=== PATIENT | female | born 1955 | race Caucasian/White ===

== ENCOUNTER 2017-08-02 22:19 | Emergency (ER) | payer OTHER ==
--- OUTSIDE RECORDS SUMMARY | 2017-08-02 22:21 | XMS REPORT | Clinical Summary ---
:1955 Author Organization [facility] Address [address] [place] [address] Care Team Providers Name Role Phone Leandro Plaza MD Primary Care Provider Allergies Active Allergy Reactions Severity Noted Date Comments Penicillins Anaphylaxis High 10/05/2015 Current Medications Prescription Sig. Disp. Refills Start Date End Date Status lisinopril 5 mg daily. Active (PRINIVIL,ZESTRIL) 5 daily MG tablet PARoxetine (PAXIL) 40 daily Active MG tablet chlorhexidine 1 bid Active (PERIDEX) 0.12 % solution ferrous sulfate 325 daily Active (65 FE) MG tablet exenatide microspheres Inject 2 mg 4 each 6 10/05/2015 Active (BYDUREON) 2 mg/0.65 under the skin mL pen every 7 days injectorIndications: for 90 days. Diabetes mellitus due to underlying condition with diabetic nephropathy, Acute cystitis without hematuria insulin GLARGINE Inject 16 Units 15 mL 3 11/04/2015 Active (LANTUS SOLOSTAR) 100 under the skin unit/mL (3 mL) insulin nightly. penIndications: Type 2 diabetes, uncontrolled, with retinopathy pen needle, diabetic Use 1 needle 100 each 3 11/04/2015 Active (BD ULTRA-FINE LYNNE daily PEN NEEDLES) 32 gauge x 5/32" needleIndications: Type 2 diabetes, uncontrolled, with retinopathy lancets (freestyle) 28 PRN 60 each 5 11/16/2015 Active gauge misc cyanocobalamin 1000 Take 1,000 mcg Active MCG tablet by mouth daily. folic acid (FOLVITE) 1 Take 2 tablets 60 tablet 11 10/05/2015 10/04/2016 MG tabletIndications: (2 mg total) by Diabetes mellitus due mouth daily. to underlying condition with diabetic nephropathy, Acute cystitis without hematuria triamcinolone Apply to teeth 5 g 12 10/05/2015 10/04/2016 (KENALOG) 0.1 % 2 (two) times a pasteIndications: day. Diabetes mellitus due to underlying condition with diabetic nephropathy, Acute cystitis without hematuria, Encounter for monitoring of methotrexate therapy, Herpes gingivostomatitis, Rheumatoid arthritis involving multiple sites with positive rheumatoid factor Active Problems Problem Noted Date Anemia of renal disease 05/26/2016 Anemia, macrocytic 11/28/2015 Osteoporosis on yearly reclast 11/04/2015 Overview: Osteoporosis s/p RECLAST BMD OP - 0.569 femoral neck (-2.5), right hip .583 (-2.9), L1-L4 spine 0.800 (- 2.2) Rheumatoid arthritis involving multiple sites with positive high titer 2015 anti CCP Overview: Rheumatoid arthritis with high titer CCP>250, inflammatory arthritis with synovitis Responded to steroid and partially to MTX, in remission with addition of xeljanz, Herpes gingivostomatitis in Sep 2015 10/05/2015 Last Assessment & Plan: Initial presentation in June, responded to antiviral, currently having a new flare (September 2015) given new prescription for ten days Coronary artery disease s/p stent x 1 10/05/2015 Hypothyroidism 10/05/2015 Type 2 DM with diabetic nephropathy on BYDUREON since June 2015 HbA1c 2015 decreased from 9 to 7 Hypertension 10/05/2015 Diabetes mellitus due to underlying condition with diabetic nephropathy 2015 Encounters Date Type Specialty Care Team Description 07/20/2017 [facility] Sleep Medicine Tom, Encounter Elizabeth Mcclain MD 07/19/2017 Transcribe Orders Sleep Medicine [facility], Obstructive sleep apnea Varsha syndrome (Primary Dx) 02/23/2017 Lab Lab DhLeandro rosas Pure hypercholesterolemia (Primary Dx); MD Mandy Idiopathic atrophic hypothyroidism; Rickets, active; Urinary tract infection without hematuria, site unspecified 09/28/2016 Lab Lab BryceolaLeandro nichols Pure hypercholesterolemia (Primary Dx); MD Mandy Diabetic glomerulopathy; Rickets, active; Essential hypertension; Vitamin D deficiency disease 08/26/2016 [facility] Hematology and [place]one Pat Anemia, macrocytic Encounter Oncology MD Maria Eugenia 08/25/2016 Lab Lab [place] Pat Drug-induced folate deficiency anemia ( Primary Dx); MD Maria Eugenia Anemia of chronic renal failure, unspecified stage 08/25/2016 Orders Only Hematology and Chaudhary, Oncology ALKA Corona after 08/01/2016 Family History Medical History Relation Name Comments Alzheimer's disease Father Dementia Father Dementia Mother Diabetes Mother Other Mother Epilepsy Relation Name Status Comments Father (Age 80's) Mother Social History Tobacco Use Types Packs/Day Years Used Date Never Smoker Comments: She is ; her daughters live with her. She was born in [place], [place] and raised in [place]. She worked as a student support counselor. Alcohol Use Drinks/Week oz/Week Comments No Sex Assigned at Date Recorded Not on file Last Filed Vital Signs Vital Sign Reading Time Taken Blood Pressure 155/79 08/26/2016 2:30 PM CDT Pulse 54 08/26/2016 2:21 PM CDT Temperature 36.6 C (97.9 F) 08/26/2016 2:21 PM CDT Respiratory Rate 17 08/26/2016 2:21 PM CDT Oxygen Saturation 99% 08/26/2016 2:21 PM CDT Inhaled Oxygen Concentration - - Weight 80 kg (176 lb 5.9 oz) 08/26/2016 7:52 AM CDT Height 165.1 cm (5' 5") 08/26/2016 7:52 AM CDT Body Mass Index 29.35 08/26/2016 7:52 AM CDT Plan of Treatment Health Maintenance Due Date Last Done Comments URINE MICROALBUMIN 1964 CERVICAL CANCER SCREENING 09/24/1975 BREAST CANCER SCREENING 2004 COLON CANCER SCREENING 2004 SHINGRIX VACCINE (#1) 2004 ZOSTER VACCINE 2014 DIABETIC FOOT EXAM 11/03/2016 11/04/2015, 11/04/2015 DIABETIC RETINAL EYE EXAM 01/07/2017 01/07/2015 INFLUENZA VACCINE 09/20/2017 Procedures Procedure Name Priority Date/Time Associated Diagnosis Comments GENERAL SLEEP STUDY Routine 08/01/2017 7:17 AM CDT Obstructive sleep apnea syndrome after 08/01/2016 Results General sleep study (08/01/2017 7:17 AM)Estimated GFR (02/23/2017 3:40 PM) Only the most recent of2 resultswithin the time period is included. Component Value Ref Range GFR Non Af Amer 27 (A) mL/min/1.73 m2 GFR Af Amer 32 (A) mL/min/1.73 m2 Comment: Chronic kidney disease: <60 mL/min/1.73m2 Kidney failure: <15 mL/min/1.73m2 The estimated GFR is calculated from the IDMS-traceable Modification of Diet in Renal Disease Equation. The accuracy of the calculation is poor when the creatinine is normal. Calculated values >90 mL/min/1.73m2 are not reported. This equation has not been validated in children (<18 years), women, the elderly (>70 years), or ethnic groups other than Caucasians and Americans. Specimen Performing Laboratory Plasma specimen [facility] DEPARTMENT OF PATHOLOGY AND GENOMIC MEDICINE [address] [place] [address] Vitamin D 1,25 dihydroxy level, serum (02/23/2017 3:40 PM) Component Value Ref Range Vit D, 1,25-Dihydroxy 28.50 18.00 - 78.00 pg/mL Comment: This test was developed and its performance characteristics determined by the Department of Pathology and Genomic Medicine, [facility]. Serum 1,25 Dihydroxy Vitamin D is tested by LC-MS/MS. It has not been cleared or approved by FDA. The laboratory is regulated under CLIA as qualified to perform high-complexity testing. This test is used for clinical purposes. It should not be regarded as investigational or for research. Specimen Performing Laboratory Blood [facility] DEPARTMENT OF PATHOLOGY AND GENOMIC MEDICINE [address] [place] [address] Narrative GLU results called to and read back by DR. PLAZA (name/location) at02/23/201717:34 (date/time) by [employer]. Unable to perform testing, specimen is HEMOLYZED.Recollect requested for K, AST (tests).FAXED TO [facility] ([phone]) (name/location) notified by [employer] (tech ID) at 02/23/201717:35 (date/time).Credit issued. Christina Kerr in office notified of a sample recollect for K,AST hemolyzed for testing 02/24/2017 10:47 LMID. Vitamin D 25 hydroxy level (02/23/2017 3:40 PM)Only the most recent of2 resultswithin the time period is included. Component Value Ref Range Vitamin D, 25-hydroxy 19.8 (L) 30.0 - 150.0 ng/mL Comment: This assay reports the sum of 25-hydroxy vitamin D3 and 25-hydroxy vitamin D2. Reference range: 0-17 years: Deficiency: less than 20ng/mL Optimum level: greater than or equal to 20 ng/mL. 18 years and older: Deficiency: less than 20ng/mL Insufficiency: 20-29 ng/mL Optimum Level: 30-80 ng/mL The assay reportable range is 3.4155.9 ng/mL. Levels higher than 150 ng/mL may be associated with toxicity. If toxicity is clinically suspected and the reported result is >155.9 ng/mL,contact lab for alternative methods to obtain a definitivelevel. If separate quantitation of 25-hydroxy vitamin D3 and 25-hydroxy vitamin D2 is needed, please contact lab for alternative methods. Specimen Performing Laboratory Blood [facility] DEPARTMENT OF PATHOLOGY AND GENOMIC MEDICINE [address] [place] [address] Narrative GLU results called to and read back by DR. PLAZA (name/location) at02/23/201717:34 (date/time) by [employer]. Unable to perform testing, specimen is HEMOLYZED.Recollect requested for K, AST (tests).FAXED TO [facility] ([phone]) (name/location) notified by [employer] (tech ID) at 02/23/201717:35 (date/time).Credit issued. Urinalysis, automated with microscopy (02/23/2017 3:40 PM) Component Value Ref Range Color, UA Straw Appearance, UA Clear Specific gravity, UA 1.028 1.001 - 1.035 pH, UA 6.0 5.0 - 8.5 Protein, UA 3+ (A) Negative Glucose, UA 3+ (A) Negative Ketones, UA Negative Negative Bilirubin, UA Negative Negative Blood, UA Small (A) Negative Nitrite, UA Negative Negative Urobilinogen, UA <2.0 <2.0 Leukocyte esterase, UA Negative Negative Epithelial cells, UA 2 /HPF WBC, UA 4 0 - 4 /HPF RBC, UA 2 0 - 2 /HPF Bacteria, UA Few None seen Yeast, UA None seen Yeast with pseudohyphae, UA None seen Specimen Performing Laboratory Urine [facility] DEPARTMENT OF PATHOLOGY AND GENOMIC MEDICINE [address] [place] [address] Sedimentation rate (02/23/2017 3:40 PM) Component Value Ref Range Sedimentation rate 73 (H) 0 - 20 mm/hr Specimen Performing Laboratory Blood [facility] DEPARTMENT OF PATHOLOGY AND GENOMIC MEDICINE [address] [place] [address] CBC with platelet and differential (02/23/2017 3:40 PM)Only the most recent of2 resultswithin the time period is included. Component Value Ref Range WBC 5.74 4.50 - 11.00 k/uL RBC 3.59 (L) 4.20 - 5.50 m/uL HGB 12.0 12.0 - 16.0 g/dL HCT 35.0 (L) 37.0 - 47.0 % MCV 97.5 82.0 - 100.0 fL MCH 33.4 27.0 - 34.0 pg MCHC 34.3 31.0 - 37.0 g/dL RDW - SD 46.0 37.0 - 55.0 fL MPV 10.6 8.8 - 13.2 fL Platelet count 251 150 - 400 k/uL Nucleated RBC 0.00 /100 WBC Neutrophils 62.5 39.0 - 69.0 % Lymphocytes 28.6 25.0 - 45.0 % Monocytes 7.3 0.0 - 10.0 % Eosinophils 0.9 0.0 - 5.0 % Basophils 0.5 0.0 - 1.0 % Immature granulocytes 0.2Comment: "Immature granulocytes" 0.0 - 1.0 % (promyelocytes, myelocytes, metamyelocytes) Specimen Performing Laboratory Blood [facility] DEPARTMENT OF PATHOLOGY AND GENOMIC MEDICINE [address] [place] [address] C-reactive protein (02/23/2017 3:40 PM) Component Value Ref Range CRP <0.30 0.00 - 0.50 mg/dL Specimen Performing Laboratory Plasma specimen [facility] DEPARTMENT OF PATHOLOGY AND GENOMIC MEDICINE [address] [place] [address] Hemoglobin A1c (02/23/2017 3:40 PM)Only the most recent of2 resultswithin the time period is included. Component Value Ref Range Hemoglobin A1C 10.7 (H) 4.0 - 5.6 % Comment: HbA1c cutoffs for diagnosing diabetes: 4.0% - 5.6%=normal 5.7% - 6.4%=increased risk for diabetes (prediabetes) >=6.5%=diabetes Goals for glycemic control (ADA 2016) < 7.0%Target for non adults with diabetes. More or less stringent targets may be appropriate for individual patients. <7.5% Target for Children and adolescents with type 1 diabetes. Specimen Performing Laboratory Blood [facility] DEPARTMENT OF PATHOLOGY AND GENOMIC MEDICINE [address] [place] [address] Narrative GLU results called to and read back by DR. PLAZA (name/location) at02/23/201717:34 (date/time) by [employer]. Unable to perform testing, specimen is HEMOLYZED.Recollect requested for K, AST (tests).FAXED TO [facility] ([phone]) (name/location) notified by [employer] (tech ID) at 02/23/201717:35 (date/time).Credit issued. Comprehensive metabolic panel (02/23/2017 3:40 PM)Only the most recent of2 resultswithin the time period is included. Component Value Ref Range Sodium 131 (L) 135 - 148 mEq/L Potassium SEE COMMENT 3.5 - 5.0 mEq/L Comment: Footnote--------- K, AST ARE HEMOLYZED. PLEASE RECOLLECT. Chloride 90 (L) 98 - 112 mEq/L CO2 24 24 - 31 mEq/L Anion gap 17 (H) 7 - 15 mEq/L Comment: Starting from May , anion gap calculation no longer incorporates potassium. Please note the change. BUN 41 (H) 8 - 23 mg/dL Creatinine 1.9 (H) 0.5 - 0.9 mg/dL Glucose 696 (HH) 65 - 99 mg/dL Calcium 10.6 (H) 8.8 - 10.2 mg/dL Protein 7.8 6.3 - 8.3 g/dL Comment: [place] 4.6-7.0 g/dL 1 week 4.4-7.6 g/dL 7 months-1year5.1-7.3 g/dL 1-2 years5.6-7.5 g/dL >3 years6.0-8.0 g/dL 18-150 6.3-8.3 g/dL Albumin 2.7 (L) 3.5 - 5.0 g/dL A/G ratio 0.5 (L) 0.7 - 3.8 Alkaline phosphatase 76 35 - 104 U/L AST SEE COMMENTComment: Footnote--------- 10 - 35 U/L ALT 15 5 - 50 U/L Total bilirubin <0.2 0.0 - 1.2 mg/dL Specimen Performing Laboratory Plasma specimen [facility] DEPARTMENT OF PATHOLOGY AND GENOMIC MEDICINE [address] [place] [address] Miscellaneous referral test (09/28/2016 1:58 PM) Component Value Ref Range [facility] test name VD send to [facility] test result see note Comment: 1,25-Dihydroxyvitamin D, Serum Result 39 pg/mL(Reference Value18?78) Laboratory Notes This test was developed and its performance characteristics determined by [facility] in a manner consistent with CLIA requirements. This test has not been cleared or approved by the U.S. Food and Drug Administration. Performing Site [facility] - [facility] [address] [facility] [address] Specimen Performing Laboratory [facility] [address] [place] [address] Narrative [facility] send to [place]. Bilirubin direct (09/28/2016 1:58 PM) Component Value Ref Range Bilirubin direct <0.2 0.0 - 0.3 mg/dL Specimen Performing Laboratory Plasma specimen [facility] DEPARTMENT OF PATHOLOGY AND GENOMIC MEDICINE [address] [place] [address] Lipid panel (09/28/2016 1:58 PM) Component Value Ref Range Cholesterol 276 (H) <200 mg/dL Triglycerides 439 (H) <150 mg/dL HDL cholesterol 56 >40 mg/dL LDL cholesterol 152 (H)Comment: Result obtained by direct LDL <100 mg/dL measurement Lipid panel interpretation SeeBelow Comment: Total Cholesterol (mg/dL) <200 Desirable [id number] >=240High Triglycerides (mg/dL) <150 Normal [id number]-nuoe 200-499High >=500Very high HDL Cholesterol (mg/dL) <40Low (male) <40Low (female) LDL Cholesterol (mg/dL) <100 Optimal 100-129Near or above optimal 339-324Idkvgcehto-qlvc 160-189High >=190Very high Risk Catergories that modify LDL goals. Risk CatergoriesLDL goal (mg/dL) CHD and CHD risk equivalent<100 (10-year risk >20%) Multiple (2+) risk factors <130 (10-year risk=<20%) 0-1 risk factors <160 (<10-year risk) Defining levels of lipids in metabolic syndrome Triglycerides>=150 mg/dL HDL Cholesterol Men<40 mg/dL Women<40 mg/dL Non-HDL cholesterol is a second target for therapy in persons with high triglycerides (>=200 mg/dL) Specimen Performing Laboratory Plasma specimen [facility] DEPARTMENT OF PATHOLOGY AND GENOMIC MEDICINE [address] [place] [address] Transfuse RBC (08/26/2016 2:22 PM)Only the most recent of3 resultswithin the time period is included.Prepare RBC, 2 Units (08/26/2016 8:03 AM) Component Value Ref Range Product name Red Blood Cells -1, Leukored Unit number [id number] Product code [id number] Dispense status Transfused Blood expiration date 20160921 Blood type code 6200 Blood type A POSITIVE Product name Red Blood Cells -1, Leukored Unit number [id number] Product code [id number] Dispense status Transfused Blood expiration date 20160921 Blood type code 6200 Blood type A POSITIVE Specimen Performing Laboratory [facility] DEPARTMENT OF PATHOLOGY AND GENOMIC MEDICINE [address] [place] [address] Type and screen (08/26/2016 8:03 AM) Component Value Ref Range ABO grouping A Rh type POS Antibody screen (gel) NEG Specimen Performing Laboratory Blood [facility] DEPARTMENT OF PATHOLOGY AND GENOMIC MEDICINE [address] [place] [address] after 08/01/2016 Insurance Payer Benefit Plan / Group Subscriber ID Type Phone Address MEDICARE MEDICARE PART A AND B xxxxxxxxxx Medicare [place], [place] MEDICAID MEDICAID xxxxxxxxx Medicaid
[2017-08-02] MEDS ORDERED: HYDROCODONE/APAP 7.5/325 MG TAB ONE (23:22)
[2017-08-03 00:37] LABS: Urine Blood TRACE (NEG); Urine Glucose TRACE (NEG)
[2017-08-03 00:38] LABS: Urine Protein 3+ (NEG)
--- NOTE | 2017-08-03 01:17 | ER ---
Nurse's Notes [facility] Name: Viri Jefferson Age: 61 yrs Sex: Female : 1955 Arrival Date: 08/02/2017 Time: 22:27 Bed 2 Private MD: Diagnosis: Fall due to bumping against object;Contusion of right front wall of thorax;Contusion of right back wall of thorax;Contusion of thorax;Type 1 diabetes mellitus;Multiple fractures of ribs-old Presentation: 08/02 22:20 Method Of Arrival: EMS: [facility] 22:20 Acuity: RUSS 3 22:20 Presenting complaint: EMS states: that pt was sitting on an air mattress approx 2 foot fc high and she rolled off. Pt then heard a crunch as she hit her right side on the ground. Now having increased pain. Transition of care: patient was not received from another setting of care. Onset of symptoms was August 02, 2017 at 22:00. Risk Assessment: Do you want to hurt yourself or someone else? Patient reports no desire to harm self or others. Initial Sepsis Screen: Does the patient meet any 2 criteria? No. Patient's initial sepsis screen is negative. Does the patient have a suspected source of infection? No. Patient's initial sepsis screen is negative. Care prior to arrival: Glucose check: 174 EMS bp 183/91, heart rate of 70, resp rate of 20 and sats of 100% on roomair. Historical: - Allergies: 22:35 PENICILLINS; fc - Home Meds: 22:35 paroxetine HCl 40 mg Oral tab 1 tab once daily [Active]; Xeljanz 5 mg oral tab 1 tab 2 fc times per day [Active]; vit D3 [Active]; Vitamin b 12 [Active]; folic acid 400 mcg Oral tab 1 tab once daily [Active]; - PMHx: 22:35 Anxiety; Seizures; Diabetes - IDDM; fc - PSHx: 22:35 left leg; left shoulder; left foot; fc - Immunization history:: Last tetanus immunization: unknown. - Social history:: Smoking status: Patient/guardian denies using tobacco. - Ebola Screening: : Patient negative for fever greater than or equal to 101.5 degrees Fahrenheit, and additional compatible Ebola Virus Disease symptoms Patient denies exposure to infectious person Patient denies travel to an Ebola-affected area in the 21 days before illness onset. - Family history:: not pertinent. Screenin:32 Abuse screen: Denies threats or abuse. Nutritional screening: No deficits noted. fc Tuberculosis screening: No symptoms or risk factors identified. Fall Risk Fall in past 12 months (25 points). Secondary diagnosis (15 points) impaired mobility, No IV (0 pts). Ambulatory Aid- Crutches/Cane/Walker (15 pts). Gait- Impaired (20 pts.). Mental Status- Overestimates/Forgets Limitations (15 pts.). Total Hi Fall Scale indicates High Risk Score (45 or more points). Fall prevention measures have been instituted. Side Rails Up X 2 Placed Close to Nursing Station 1:1 Attendant Assigned Family Present and informed to notify staff if the need to leave the bedside As available patient and family educated on Fall Prevention Program and Strategies. Assessment: 22:30 General: Appears in no apparent distress. comfortable, Behavior is calm, cooperative, aa1 appropriate for age. Pain: Complains of pain in right scapular area, right subscapular area, anterior aspect of right upper chest, diaphragm, right lateral posterior chest and right lateral anterior chest Pain currently is 9 out of 10 on a pain scale. Pain began suddenly, Is continuous. Neuro: Level of Consciousness is awake, alert, obeys commands, Oriented to person, place, time, situation, Moves all extremities. Cardiovascular: Heart tones S1 S2 present Rhythm is regular. Respiratory: Airway is patent Respiratory effort is even, unlabored, Respiratory pattern is regular, symmetrical, Breath sounds are clear bilaterally. GI: No signs and/or symptoms were reported involving the gastrointestinal system. : No signs and/or symptoms were reported regarding the genitourinary system. EENT: No signs and/or symptoms were reported regarding the EENT system. Derm: Skin is intact, is healthy with good turgor, Skin is pink, warm \T\ dry. Musculoskeletal: Circulation, motion, and sensation intact. Capillary refill < 3 seconds, Range of motion: intact in all extremities. 23:40 Reassessment: Patient appears in no apparent distress at this time. Patient and/or aa1 family updated on plan of care and expected duration. Pain level reassessed. Patient is alert, oriented x 3, equal unlabored respirations, skin warm/dry/pink. Pt taken to CT. 08/03 00:52 Reassessment: Patient appears in no apparent distress at this time. Patient and/or aa1 family updated on plan of care and expected duration. Pain level reassessed. Patient is alert, oriented x 3, equal unlabored respirations, skin warm/dry/pink. Awaiting CT results. 01:28 Reassessment: Patient appears in no apparent distress at this time. Patient is alert, aa1 oriented x 3, equal unlabored respirations, skin warm/dry/pink. Discussed d/c \T\ f/u instructions with pt \T\ daughter; denies questions or concerns at this time Patient states feeling better. Vital Signs: 08/02 22:20 BP 173 / 78; Pulse 71; Resp 20; Temp 98.3(O); Pulse Ox 98% on R/A; Weight 81.65 kg (R); fc Height 5 ft. 5 in. (165.10 cm) (R); Pain 9/10; 23:35 BP 170 / 91; Pulse 59; Resp 18; Pulse Ox 95% on R/A; aa1 08/03 00:52 BP 144 / 75; Pulse 61; Resp 18; Pulse Ox 95% on R/A; Pain 6/10; aa1 08/02 22:20 Body Mass Index 29.95 (81.65 kg, 165.10 cm) fc ED Course: 08/02 22:20 Patient placed in an exam room. fc 22:27 Patient arrived in ED. aa1 22:27 Patient has correct armband on for positive identification. Placed in gown. Bed in low aa1 position. Call light in reach. Side rails up X2. Pulse ox on. NIBP on. Pillow given. 22:30 Rojas Mendoza MD is Attending Physician. [facility] 22:31 Triage completed. fc 22:54 Nola Lorenz, WILLY is Primary Nurse. aa1 23:18 X-ray completed. Portable x-ray completed in exam room. Patient tolerated procedure kw well. 23:19 Chest Single View XRAY In Process Unspecified. EDMS 23:[address] via wheelchair. kw1 23:56 CT Chest Abdomen Pelvis W/O Contrast: no iv no oral In Process Unspecified. EDMS 08/03 00:26 Urine collected: clean catch specimen, clear. aa1 01:28 No provider procedures requiring assistance completed. Patient did not have IV access aa1 during this emergency room visit. Administered Medications: 08/02 23:23 Drug: [place] (7.5 mg-325 mg) 1 tabs Route: PO; aa1 08/03 00:55 Follow up: Response: No adverse reaction; Pain is decreased aa1 Point of Care Testing: Blood Glucose: 08/02 23:30 Blood Glucose: 173 mg/dL; aa1 Ranges: Outcome: 08/03 01:16 Discharge ordered by . hemanth 01:28 Discharged to home via wheelchair, with family. aa1 01:28 Condition: good 01:28 Discharge instructions given to patient, family, Instructed on discharge instructions, follow up and referral plans. medication usage, Demonstrated understanding of instructions, follow-up care, medications, Prescriptions given X 1. 01:35 Patient left the ED. aa1 Signatures: Dispatcher [employer] EDMS Nola Lorenz RN RN aa1 Rojas Mendoza MD MD cha Chretien, Felicia RN RN Janel Perez Kimberly kw Corrections: (The following items were deleted from the chart) 08/02 22:33 22:32 Fall Risk None identified. prema
--- NOTE | 2017-08-03 01:17 | EDPHYS ---
Physician Documentation [facility] Name: Viri Jefferson Age: 61 yrs Sex: Female : 1955 Arrival Date: 08/02/2017 Time: 22:27 Bed 2 Private MD: ED Physician Rojas Mendoza HPI: 08/02 23:08 This 61 yrs old Female presents to ER via EMS with complaints of Right side hemanth pain. 23:08 The patient presents with abdominal pain in the upper abdomen. Onset: The hemanth symptoms/episode began/occurred just prior to arrival. The patient or guardian reports chest pain that is located primarily in the anterior chest wall, right lateral posterior chest and right lateral anterior chest. Onset: The symptoms/episode began/occurred just prior to arrival. The pain does not radiate. Associated signs and symptoms: The patient has no apparent associated signs or symptoms. The chest pain is described as sharp. Modifying factors: The symptoms are alleviated by remaining still, the symptoms are aggravated by movement, palpation of area, twisting torso. Severity of pain: At its worst the pain was mild moderate in the emergency department the pain is unchanged. Historical: - Allergies: 22:35 PENICILLINS; fc - Home Meds: 22:35 paroxetine HCl 40 mg Oral tab 1 tab once daily [Active]; Xeljanz 5 mg oral tab 1 tab 2 fc times per day [Active]; vit D3 [Active]; Vitamin b 12 [Active]; folic acid 400 mcg Oral tab 1 tab once daily [Active]; - PMHx: 22:35 Anxiety; Seizures; Diabetes - IDDM; fc - PSHx: 22:35 left leg; left shoulder; left foot; fc - Immunization history:: Last tetanus immunization: unknown. - Social history:: Smoking status: Patient/guardian denies using tobacco. - Ebola Screening: : Patient negative for fever greater than or equal to 101.5 degrees Fahrenheit, and additional compatible Ebola Virus Disease symptoms Patient denies exposure to infectious person Patient denies travel to an Ebola-affected area in the 21 days before illness onset. - Family history:: not pertinent. ROS: 23:08 Constitutional: Negative for fever, chills, and weight loss, Eyes: Negative for injury, hemanth pain, redness, and discharge, ENT: Negative for injury, pain, and discharge, Neck: Negative for injury, pain, and swelling, Cardiovascular: Negative for chest pain, palpitations, and edema, Abdomen/GI: Negative for abdominal pain, nausea, vomiting, diarrhea, and constipation. 23:08 Back: Negative for injury and pain, : Negative for injury, bleeding, discharge, and swelling, MS/Extremity: Negative for injury and deformity, Skin: Negative for injury, rash, and discoloration, Neuro: Negative for headache, weakness, numbness, tingling, and seizure, Psych: Negative for depression, anxiety, suicide ideation, homicidal ideation, and hallucinations, Allergy/Immunology: Negative for hives, rash, and allergies, Endocrine: Negative for neck swelling, polydipsia, polyuria, polyphagia, and marked weight changes, Hematologic/Lymphatic: Negative for swollen nodes, abnormal bleeding, and unusual bruising. 23:08 Respiratory: Positive for pleurisy, shortness of breath. Exam: 23:10 Constitutional: This is a well developed, well nourished patient who is awake, alert, hemanth and in no acute distress. Head/Face: Normocephalic, atraumatic. Eyes: Pupils equal round and reactive to light, extra-ocular motions intact. Lids and lashes normal. Conjunctiva and sclera are non-icteric and not injected. Cornea within normal limits. Periorbital areas with no swelling, redness, or edema. ENT: Nares patent. No nasal discharge, no septal abnormalities noted. Tympanic membranes are normal and external auditory canals are clear. Oropharynx with no redness, swelling, or masses, exudates, or evidence of obstruction, uvula midline. Mucous membranes moist. Neck: Trachea midline, no thyromegaly or masses palpated, and no cervical lymphadenopathy. Supple, full range of motion without nuchal rigidity, or vertebral point tenderness. No Meningismus. Cardiovascular: Regular rate and rhythm with a normal S1 and S2. No gallops, murmurs, or rubs. Normal PMI, no JVD. No pulse deficits. Respiratory: Lungs have equal breath sounds bilaterally, clear to auscultation and percussion. No rales, rhonchi or wheezes noted. No increased work of breathing, no retractions or nasal flaring. Abdomen/GI: Soft, non-tender, with normal bowel sounds. No distension or tympany. No guarding or rebound. No evidence of tenderness throughout. Back: No spinal tenderness. No costovertebral tenderness. Full range of motion. Female : Normal external genitalia. Skin: Warm, dry with normal turgor. Normal color with no rashes, no lesions, and no evidence of cellulitis. MS/ Extremity: Pulses equal, no cyanosis. Neurovascular intact. Full, normal range of motion. Neuro: Awake and alert, GCS 15, oriented to person, place, time, and situation. Cranial nerves II-XII grossly intact. Motor strength 5/5 in all extremities. Sensory grossly intact. Cerebellar exam normal. Normal gait. Psych: Awake, alert, with orientation to person, place and time. Behavior, mood, and affect are within normal limits. 23:10 Chest/axilla: Inspection: no acute changes, Palpation: tenderness, that is mild, of the right lateral posterior chest and right lateral anterior chest, Axilla: are normal, no acute changes, Breasts: are normal, no acute changes, Lymph nodes: lymphadenopathy is not appreciated. Vital Signs: 22:20 BP 173 / 78; Pulse 71; Resp 20; Temp 98.3(O); Pulse Ox 98% on R/A; Weight 81.65 kg (R); fc Height 5 ft. 5 in. (165.10 cm) (R); Pain 9/10; 23:35 BP 170 / 91; Pulse 59; Resp 18; Pulse Ox 95% on R/A; aa 08/03 00:52 BP 144 / 75; Pulse 61; Resp 18; Pulse Ox 95% on R/A; Pain 6/10; 1 08/02 22:20 Body Mass Index 29.95 (81.65 kg, 165.10 cm) fc MDM: 08/02 22:30 Patient medically screened. [facility] 23:10 Data reviewed: vital signs, nurses notes, lab test result(s), radiologic studies. [facility] 08/02 23:07 Order name: Urine Culture [facility] 08/03 00:27 Order name: Urine Dipstick--Ancillary (enter results); Complete Time: 01:16 [facility] 08/02 23:07 Order name: Chest Single View XRAY [facility] 08/02 23:07 Order name: CT Chest Abdomen Pelvis W/O Contrast: no iv no oral [facility] 08/02 23:07 Order name: INCENTIVE SPIROMETRY [facility] 08/02 23:07 Order name: Urine Dipstick-Ancillary (obtain specimen); Complete Time: 00:26 [facility] 08/02 23:11 Order name: Blood Glucose Level; Complete Time: 23:26 [facility] Administered Medications: 23:23 Drug: Beryl (7.5 mg-325 mg) 1 tabs Route: PO; aa1 08/03 00:55 Follow up: Response: No adverse reaction; Pain is decreased aa1 Point of Care Testing: Blood Glucose: 08/02 23:30 Blood Glucose: 173 mg/dL; aa Ranges: Critical Glucose Levels:Adult <50 mg/dl or >400 mg/dl <40 mg/dl or >180 mg/dl Disposition: 08/03/17 01:16 Discharged to Home. Impression: Fall due to bumping against object, Contusion of right front wall of thorax, Contusion of right back wall of thorax, Contusion of thorax, Type 1 diabetes mellitus, Multiple fractures of ribs - old. - Condition is Stable. - Discharge Instructions: Chest Wall Pain, Type 2 Diabetes Mellitus, Adult, Type 1 Diabetes Mellitus, Adult, Fall Prevention and Home Safety, Chest Wall Pain, [id number], Fall Prevention and Home Safety, [id number]. - Prescriptions for Tylenol- Codeine #3 300-30 mg Oral Tablet - take 2 tablet by ORAL route every 6 hours As needed; 30 tablet. - Medication Reconciliation Form, Thank You Letter, Antibiotic Education, Prescription Opioid Use form. - Follow up: Private Physician; When: 2 - 3 days; Reason: Recheck today's complaints, Continuance of care, Re-evaluation by your physician. - Problem is new. - Symptoms have improved. Signatures: Dispatcher [employer] EDMS Nola Lorenz, RN RN aa1 Rojas Mendoza MD MD cha Chretien, Felicia, RN RN Corrections: (The following items were deleted from the chart) 08/03 01:35 01:16 08/03/2017 01:16 Discharged to Home. Impression: Fall due to bumping against aa1 object; Contusion of right front wall of thorax; Contusion of right back wall of thorax; Contusion of thorax; Type 1 diabetes mellitus; Multiple fractures of ribs - old. Condition is Stable. Discharge Instructions: Type 2 Diabetes Mellitus, Adult, Type 1 Diabetes Mellitus, Adult, Chest Wall Pain, Fall Prevention and Home Safety, Chest Wall Pain, [id number], Fall Prevention and Home Safety, [id number]. Prescriptions for Tylenol-Codeine #3 300-30 mg Oral Tablet - take 2 tablet by ORAL route every 6 hours As needed; 30 tablet. and Forms are Medication Reconciliation Form, Thank You Letter, Antibiotic Education, Prescription Opioid Use. Follow up: Private Physician; When: 2 - 3 days; Reason: Recheck today's complaints, Continuance of care, Re-evaluation by your physician. Problem is new. Symptoms have improved. hemanth
[2017-08-03 01:42] VITALS: TEMP 98.3
[2017-08-03 01:43] VITALS: O2SAT 95
[2017-08-03 01:44] VITALS: BP 144/75
--- NOTE | 2017-08-03 08:44 | RAD REPORT ---
EXAM DESCRIPTION: RAD - Chest Single View - 08/02/2017 11:21 pm CLINICAL HISTORY: Chest pain. COMPARISON: 10/02/2016 FINDINGS: Portable technique limits examination quality. Mild linear atelectasis is seen left mid lung. The lungs are otherwise clear. The heart is upper limi t of normal in size. No displaced fractures. IMPRESSION: No acute intrathoracic process suspected.
--- NOTE | 2017-08-03 09:34 | RAD REPORT ---
EXAM DESCRIPTION: CT - Chest Abd Pelvis Wo Con - 08/03/2017 7:14 am CLINICAL HISTORY: Chest and abdomen pain. Chest pain;Blunt chest trauma COMPARISON: CTANGIO CHEST FOR PE dated 06/18/2007 TECHNIQUE: All CT scans are performed using dose optimization technique as appropriate and may inclu de automated exposure control or mA/KV adjustment according to patient size. FINDINGS: Minimal linear atelectasis is seen in left mid lung. No focal pulmonary infiltrate or cont usion.No pleural or pericardial effusion.No intrathoracic adenopathy. The liver contains a small low-density lesion in the inferior right lobe, likely benign cyst. No aggr essive liver lesion or biliary dilatation suspected. The spleen, adrenal glands and kidneys show no a cute finding for non-contrast imaging. Punctate inferior right renal calculus suspected. No gross laird creatic abnormality for non-contrast imaging. Cholelithiasis. No bowel obstruction, free air, free fluid or abscess. No pathologic lymphadenopathy in the abdomen o r pelvis. Areas of lucency are seen in the lateral aspect of the right first, second, third ribs is questionabl e/ equivocal for nondisplaced fractures. Correlation with clinical point tenderness is advised. There is evidence of previous old right-sided rib fractures with sclerosis noted. Chronic spondylolysis at L5-S1 suspected. IMPRESSION: Lucency in several lateral superior right ribs is equivocal for fracture. Correlation with patient pa in in this location is advised. Elsewhere, no acute finding is demonstrated.
== END 2017-08-03 01:35 | disposition home or self-care (01) ==
LOC: ER 22:19
DX: S20.211A Contusion of right front wall of thorax, initial encounter (principal); S20.221A Contusion of right back wall of thorax, initial encounter; S22.49XA Multiple fractures of ribs, unspecified side, initial encounter for closed fracture; E10.9 Type 1 diabetes mellitus without complications; W18.00XA Striking against unspecified object with subsequent fall, initial encounter; Y93.9 Activity, unspecified; Y92.9 Unspecified place or not applicable; Z88.0 Allergy status to penicillin; F41.9 Anxiety disorder, unspecified; G40.909 Epilepsy, unspecified, not intractable, without status epilepticus
CPT/HCPCS: 71045; 71250; 74176; 81003; 82962; 87086; 87088; 99284

== ENCOUNTER 2017-10-27 11:50 | Emergency (ER) | payer OTHER ==
--- OUTSIDE RECORDS SUMMARY | 2017-10-27 11:52 | XMS REPORT | Clinical Summary ---
:1955 Author Organization [facility] Address [address] [place] [address] Care Team Providers Name Role Phone Leandro Plaza MD Primary Care Provider Allergies Active Allergy Reactions Severity Noted Date Comments Penicillins Anaphylaxis High 10/05/2015 Current Medications Prescription Sig. Disp. Refills Start Date End Date Status lisinopril 5 mg daily. Active (PRINIVIL,ZESTRIL) 5 MG daily tablet PARoxetine (PAXIL) 40 MG daily Active tablet chlorhexidine (PERIDEX) 1 bid Active 0.12 % solution ferrous sulfate 325 (65 daily Active FE) MG tablet exenatide microspheres Inject 2 mg 4 each 6 10/05/2015 Active (BYDUREON) 2 mg/0.65 mL under the skin pen injectorIndications: every 7 days for Diabetes mellitus due to 90 days. underlying condition with diabetic nephropathy, Acute cystitis without hematuria insulin GLARGINE (LANTUS Inject 16 Units 15 mL 3 11/04/2015 Active SOLOSTAR) 100 unit/mL (3 under the skin mL) insulin nightly. penIndications: Type 2 diabetes, uncontrolled, with retinopathy pen needle, diabetic (BD Use 1 needle 100 each 3 11/04/2015 Active ULTRA-FINE LYNNE PEN daily NEEDLES) 32 gauge x 5/32" needleIndications: Type 2 diabetes, uncontrolled, with retinopathy lancets (freestyle) 28 PRN 60 each 5 11/16/2015 Active gauge misc cyanocobalamin 1000 MCG Take 1,000 mcg Active tablet by mouth daily. Active Problems Problem Noted Date Anemia of [...] Encounters Date Type Specialty Care Team Description 08/30/2017 [facility] Sleep Medicine Tom, Encounter Elizabeth Mcclain MD 08/17/2017 Transcribe Orders Sleep Medicine [facility] Wu, Obstructive sleep apnea Varsha syndrome (Primary Dx) 07/20/2017 [facility] Sleep Medicine Tom, Encounter Elizabeth Mcclain MD 07/19/2017 Transcribe Orders Sleep Medicine Kallie Washburn, Obstructive sleep apnea Varsha syndrome (Primary Dx) 02/23/2017 Lab Lab Leandro Plaza Pure hypercholesterolemia (Primary Dx); MD Mandy Idiopathic atrophic hypothyroidism; Rickets, active; Urinary tract infection without hematuria, site unspecified after 10/26/2016 Family History Medical History Relation Name Comments Alzheimer's disease Father Dementia Father Dementia Mother Diabetes Mother Other Mother Epilepsy Relation Name Status Comments Father (Age 80's) Mother Social History Tobacco Use Types Packs/Day Years Used Date Never Smoker Comments: She is ; her daughters live with her. She was born in [place], [place] and raised in [place]. She worked as a couples therapist. Alcohol Use Drinks/Week oz/Week Comments No Sex Assigned at Date Recorded Not on file Last Filed Vital Signs Not on file Plan of Treatment Health Maintenance Due Date Last Done Comments URINE MICROALBUMIN 1964 CERVICAL CANCER SCREENING 09/24/1975 BREAST CANCER SCREENING 2004 COLON CANCER SCREENING 2004 SHINGRIX VACCINE (#1) 2004 ZOSTER VACCINE 2014 DIABETIC FOOT EXAM 11/03/2016 11/04/2015, 11/04/2015 DIABETIC RETINAL EYE EXAM 01/07/2017 01/07/2015 INFLUENZA VACCINE 09/20/2017 Procedures Procedure Name Priority Date/Time Associated Comments Diagnosis TRANSFUSE RED BLOOD Routine 10/25/2017 5:26 CELLS PM CDT TRANSFUSE RED BLOOD Routine 10/25/2017 5:26 CELLS PM CDT TRANSFUSE PLATELETS Routine 10/25/2017 5:26 PM CDT TRANSFUSE PLATELETS Routine 10/25/2017 5:26 PM CDT TRANSFUSE RED BLOOD Routine 10/25/2017 5:25 CELLS PM CDT GENERAL SLEEP STUDY Routine 09/05/2017 6:21 Obstructive sleep AM CDT apnea syndrome GENERAL SLEEP STUDY Routine 08/01/2017 7:17 Obstructive sleep AM CDT apnea syndrome ESTIMATED GFR Routine 02/23/2017 3:40 Results for this PM LOOM INSPECTOR procedure are in the results section. VITAMIN D 1,25 Routine 02/23/2017 3:40 Pure Results for this DIHYDROXY LEVEL, SERUM PM LOOM INSPECTOR hypercholesterolemi procedure are in a the results Idiopathic atrophic section. hypothyroidism Rickets, active Urinary tract infection without hematuria, site unspecified URINALYSIS, AUTOMATED Routine 02/23/2017 3:40 Pure Results for this WITH MICROSCOPY PM LOOM INSPECTOR hypercholesterolemi procedure are in a the results Idiopathic atrophic section. hypothyroidism Rickets, active Urinary tract infection without hematuria, site unspecified VITAMIN D 25 HYDROXY Routine 02/23/2017 3:40 Pure Results for this LEVEL PM LOOM INSPECTOR hypercholesterolemi procedure are in a the results Idiopathic atrophic section. hypothyroidism Rickets, active Urinary tract infection without hematuria, site unspecified HEMOGLOBIN A1C Routine 02/23/2017 3:40 Pure Results for this PM LOOM INSPECTOR hypercholesterolemi procedure are in a the results Idiopathic atrophic section. hypothyroidism Rickets, active Urinary tract infection without hematuria, site unspecified C-REACTIVE PROTEIN Routine 02/23/2017 3:40 Pure Results for this PM LOOM INSPECTOR hypercholesterolemi procedure are in a the results Idiopathic atrophic section. hypothyroidism Rickets, active Urinary tract infection without hematuria, site unspecified SEDIMENTATION RATE Routine 02/23/2017 3:40 Pure Results for this PM LOOM INSPECTOR hypercholesterolemi procedure are in a the results Idiopathic atrophic section. hypothyroidism Rickets, active Urinary tract infection without hematuria, site unspecified COMPREHENSIVE Routine 02/23/2017 3:40 Pure Results for this METABOLIC PANEL PM LOOM INSPECTOR hypercholesterolemi procedure are in a the results Idiopathic atrophic section. hypothyroidism Rickets, active Urinary tract infection without hematuria, site unspecified HC COMPLETE BLD COUNT Routine 02/23/2017 3:40 Pure Results for this W/AUTO DIFF PM LOOM INSPECTOR hypercholesterolemi procedure are in a the results Idiopathic atrophic section. hypothyroidism Rickets, active Urinary tract infection without hematuria, site unspecified after 10/26/2016 Results Transfuse platelets (10/25/2017 5:26 PM)Only the most recent of3 resultswithin the time period is included.Transfuse RBC (10/25/2017 5:26 PM)Only the most recent of3 resultswithin the time period is included.General sleep study (2017 6:21 AM) Narrative Performed At General sleep study (08/01/2017 7:17 AM) Narrative Performed At Estimated GFR (02/23/2017 3:40 PM) GFR Non Af Amer 27 (A) mL/min/1.[address] [facility] DEPARTMENT OF PATHOLOGY AND GENOMIC MEDICINE GFR Af Amer 32 (A) mL/min/1.[address] [facility] DEPARTMENT OF Comment: PATHOLOGY AND GENOMIC Chronic kidney disease: <60 mL/min/1.73m2 MEDICINE Kidney failure: <15 mL/min/1.73m2 The estimated GFR is calculated from the IDMS-traceable Modification of Diet in Renal Disease Equation. The accuracy of the calculation is poor when the creatinine is normal. Calculated values >90 mL/min/1.73m2 are not reported. This equation has not been validated in children (<18 years), women, the elderly (>70 years), or ethnic groups other than Caucasians and Americans. Specimen Plasma specimen Performing Organization Address City/State/Zipcode Phone Number [facility] DEPARTMENT OF PATHOLOGY AND [address] [place] [address] [employer] MEDICINE Vitamin D 1,25 dihydroxy level, serum (02/23/2017 3:40 PM) Vit D, 1,25-Dihydroxy 28.50 18.00 - 78.[address] [facility] DEPARTMENT OF Comment: pg/mL PATHOLOGY AND GENOMIC This test was developed and its performance characteristics determined by MEDICINE the Department of Pathology and Genomic Medicine, [facility]. Serum 1,25 Dihydroxy Vitamin D is tested by LC-MS/MS. It has not been cleared or approved by FDA. The laboratory is regulated under CLIA as qualified to perform high-complexity testing. This test is used for clinical purposes. It should not be regarded as investigational or for research. Specimen Blood Narrative Performed At GLU results called to and read back by [facility] DEPARTMENT OF PATHOLOGY AND GENOMIC NATHAN (name/location) MEDICINE at02/23/201717:34 (date/time) by [employer]. Unable to perform testing, specimen is HEMOLYZED.Recollect requested for K, AST (tests).FAXED TO [facility] ([phone]) (name/location) notified by [employer] (tech ID) at 02/23/201717:35 (date/time).Credit issued. Christina Kerr in office notified of a sample recollect for K,AST hemolyzed for testing 02/24/2017 10:47 LMID. Performing Organization Address City/State/Zipcode Phone Number [facility] DEPARTMENT OF PATHOLOGY AND [address] [place] [address] [employer] [facility] Vitamin D 25 hydroxy level (02/23/2017 3:40 PM) Vitamin D, 25-hydroxy 19.8 (L) 30.0 - 150.[address] [facility] DEPARTMENT OF Comment: ng/mL PATHOLOGY AND GENOMIC This assay reports the sum of 25-hydroxy vitamin D3 and 25-hydroxy vitamin MEDICINE D2. Reference range: 0-17 years: Deficiency: less [...] please contact lab for alternative methods. Specimen Blood Narrative Performed At GLU results called to and read back by [facility] DEPARTMENT OF PATHOLOGY AND [employer] NATHAN (name/location) MEDICINE at02/23/201717:34 (date/time) by [employer]ibiya. Unable to perform testing, specimen is HEMOLYZED.Recollect requested for K, AST (tests).FAXED TO [facility] ([phone]) (name/location) notified by [employer] (tech ID) at 02/23/201717:35 (date/time).Credit issued. Performing Organization Address City/State/Zipcode Phone Number [facility] DEPARTMENT OF PATHOLOGY AND [address] [place] [phone] [facility] Urinalysis, automated with microscopy (02/23/2017 3:40 PM) Color, UA Straw [facility] DEPARTMENT OF PATHOLOGY AND GENOMIC MEDICINE Appearance, UA Clear [facility] DEPARTMENT OF PATHOLOGY AND GENOMIC MEDICINE Specific gravity, UA 1.028 1.001 - 1.[address] [facility] DEPARTMENT OF PATHOLOGY AND GENOMIC MEDICINE pH, UA 6.0 5.0 - 8.[address] [facility] DEPARTMENT OF PATHOLOGY AND GENOMIC MEDICINE Protein, UA 3+ (A) Negative [facility] DEPARTMENT OF PATHOLOGY AND GENOMIC MEDICINE Glucose, UA 3+ (A) Negative [facility] DEPARTMENT OF PATHOLOGY AND GENOMIC MEDICINE Ketones, UA Negative Negative [facility] DEPARTMENT OF PATHOLOGY AND GENOMIC MEDICINE Bilirubin, UA Negative Negative [facility] DEPARTMENT OF PATHOLOGY AND GENOMIC MEDICINE Blood, UA Small (A) Negative [facility] DEPARTMENT OF PATHOLOGY AND GENOMIC MEDICINE Nitrite, UA Negative Negative [facility] DEPARTMENT OF PATHOLOGY AND GENOMIC MEDICINE Urobilinogen, UA <2.0 <2.[address] [facility] DEPARTMENT OF PATHOLOGY AND GENOMIC MEDICINE Leukocyte esterase, UA Negative Negative [facility] DEPARTMENT OF PATHOLOGY AND GENOMIC MEDICINE Epithelial cells, UA 2 /HPF [facility] DEPARTMENT OF PATHOLOGY AND GENOMIC MEDICINE WBC, UA 4 0 - 4 /HPF [facility] DEPARTMENT OF PATHOLOGY AND GENOMIC MEDICINE RBC, UA 2 0 - 2 /HPF [facility] DEPARTMENT OF PATHOLOGY AND GENOMIC MEDICINE Bacteria, UA Few None seen [facility] DEPARTMENT OF PATHOLOGY AND GENOMIC MEDICINE Yeast, UA None seen [facility] DEPARTMENT OF PATHOLOGY AND GENOMIC MEDICINE Yeast with pseudohyphae, UA None seen [facility] DEPARTMENT OF PATHOLOGY AND GENOMIC MEDICINE Specimen Urine Performing Organization Address City/[facility]/Zipcode Phone Number [facility] DEPARTMENT OF PATHOLOGY AND [address] [place] [address] [facility] Sedimentation rate (02/23/2017 3:40 PM) Sedimentation rate 73 (H) 0 - 20 mm/hr [facility] DEPARTMENT OF PATHOLOGY AND GENOMIC MEDICINE Specimen Blood Performing Organization Address City/[facility]/Zipcode Phone Number [facility] DEPARTMENT OF PATHOLOGY AND [address] [place] [phone] [facility] CBC with platelet and differential (02/23/2017 3:40 PM) WBC 5.74 4.50 - 11.00 k/uL [facility] DEPARTMENT OF PATHOLOGY AND GENOMIC MEDICINE RBC 3.59 (L) 4.20 - 5.50 m/uL [facility] DEPARTMENT OF PATHOLOGY AND GENOMIC MEDICINE HGB 12.0 12.0 - 16.0 g/dL [facility] DEPARTMENT OF PATHOLOGY AND GENOMIC MEDICINE HCT 35.0 (L) 37.0 - 47.0 % [facility] DEPARTMENT OF PATHOLOGY AND GENOMIC MEDICINE MCV 97.5 82.0 - 100.[address] [facility] DEPARTMENT OF PATHOLOGY AND GENOMIC MEDICINE MCH 33.4 27.0 - 34.[address] [facility] DEPARTMENT OF PATHOLOGY AND GENOMIC MEDICINE MCHC 34.3 31.0 - 37.0 g/dL [facility] DEPARTMENT OF PATHOLOGY AND GENOMIC MEDICINE RDW - SD 46.0 37.0 - 55.[address] [facility] DEPARTMENT OF PATHOLOGY AND GENOMIC MEDICINE MPV 10.6 8.8 - 13.[address] [facility] DEPARTMENT OF PATHOLOGY AND GENOMIC MEDICINE Platelet count 251 150 - 400 k/uL [facility] DEPARTMENT OF PATHOLOGY AND GENOMIC MEDICINE Nucleated RBC 0.00 /[address] [facility] DEPARTMENT OF PATHOLOGY AND GENOMIC MEDICINE Neutrophils 62.5 39.0 - 69.0 % [facility] DEPARTMENT OF PATHOLOGY AND GENOMIC MEDICINE Lymphocytes 28.6 25.0 - 45.0 % [facility] DEPARTMENT OF PATHOLOGY AND GENOMIC MEDICINE Monocytes 7.3 0.0 - 10.0 % [facility] DEPARTMENT OF PATHOLOGY AND GENOMIC MEDICINE Eosinophils 0.9 0.0 - 5.0 % [facility] DEPARTMENT OF PATHOLOGY AND GENOMIC MEDICINE Basophils 0.5 0.0 - 1.0 % [facility] DEPARTMENT OF PATHOLOGY AND GENOMIC MEDICINE Immature granulocytes 0.2Comment: 0.0 - 1.0 % [facility] DEPARTMENT OF "Immature PATHOLOGY AND GENOMIC granulocytes" MEDICINE (promyelocytes, myelocytes, metamyelocytes) Specimen Blood Performing Organization Address City/State/Zipcode Phone Number [facility] DEPARTMENT OF PATHOLOGY AND [address] [place] [address] [facility] C-reactive protein (02/23/2017 3:40 PM) CRP <0.30 0.00 - 0.50 mg/dL [facility] DEPARTMENT OF PATHOLOGY AND GENOMIC MEDICINE Specimen Plasma specimen Performing Organization Address City/State/Zipcode Phone Number [facility] DEPARTMENT OF PATHOLOGY AND [address] [place] [address] [facility] Hemoglobin A1c (02/23/2017 3:40 PM) Hemoglobin A1C 10.7 (H) 4.0 - 5.6 % [facility] DEPARTMENT OF PATHOLOGY Comment: AND GENOMIC MEDICINE HbA1c cutoffs for diagnosing diabetes: 4.0% - 5.6%=normal 5.7% - 6.4%=increased risk for diabetes (prediabetes) >=6.5%=diabetes Goals for glycemic control (ADA 2016) < 7.0%Target for non adults with diabetes. More or less stringent targets may be appropriate for individual patients. <7.5% Target for Children and adolescents with type 1 diabetes. Specimen Blood Narrative Performed At [facility]U results called to and read back by [facility] DEPARTMENT OF PATHOLOGY AND GENOMIC NATHAN (name/location) MEDICINE at02/23/201717:34 (date/time) by [employer]. Unable to perform testing, specimen is HEMOLYZED.Recollect requested for K, AST (tests).FAXED TO [facility] ([phone]) (name/location) notified by [employer] (tech ID) at 02/23/201717:35 (date/time).Credit issued. Performing Organization Address City/State/Zipcode Phone Number [facility] DEPARTMENT OF PATHOLOGY AND [address] [place] [address] [facility] Comprehensive metabolic panel (02/23/2017 3:40 PM) Sodium 131 (L) 135 - 148 mEq/L [facility] DEPARTMENT OF PATHOLOGY AND GENOMIC MEDICINE Potassium SEE COMMENT 3.5 - 5.0 mEq/L [facility] DEPARTMENT OF Comment: PATHOLOGY AND GENOMIC Footnote--------- MEDICINE K, AST ARE HEMOLYZED. PLEASE RECOLLECT. Chloride 90 (L) 98 - 112 mEq/L [facility] DEPARTMENT OF PATHOLOGY AND GENOMIC MEDICINE CO2 24 24 - 31 mEq/L [facility] DEPARTMENT OF PATHOLOGY AND GENOMIC MEDICINE Anion gap 17 (H) 7 - 15 mEq/L [facility] DEPARTMENT OF Comment: PATHOLOGY AND GENOMIC Starting from May , anion gap calculation MEDICINE no longer incorporates potassium. Please note the change. BUN 41 (H) 8 - 23 mg/dL [facility] DEPARTMENT OF PATHOLOGY AND GENOMIC MEDICINE Creatinine 1.9 (H) 0.5 - 0.9 mg/dL [facility] DEPARTMENT OF PATHOLOGY AND GENOMIC MEDICINE Glucose 696 (HH) 65 - 99 mg/dL [facility] DEPARTMENT OF PATHOLOGY AND GENOMIC MEDICINE Calcium 10.6 (H) 8.8 - 10.2 mg/dL [facility] DEPARTMENT OF PATHOLOGY AND GENOMIC MEDICINE Protein 7.8 6.3 - 8.3 g/dL [facility] DEPARTMENT OF Comment: PATHOLOGY AND GENOMIC 4.6-7.0 g/dL MEDICINE 1 week 4.4-7.6 g/dL 7 months-1year5.1-7.3 g/dL 1-2 years5.6-7.5 g/dL >3 years6.0-8.0 g/dL 18-150 6.3-8.3 g/dL Albumin 2.7 (L) 3.5 - 5.0 g/dL [facility] DEPARTMENT OF PATHOLOGY AND GENOMIC MEDICINE A/G ratio 0.5 (L) 0.7 - 3.[address] [facility] DEPARTMENT OF PATHOLOGY AND GENOMIC MEDICINE Alkaline phosphatase 76 35 - 104 U/L [facility] DEPARTMENT OF PATHOLOGY AND GENOMIC MEDICINE AST SEE COMMENTComment: 10 - 35 U/L [facility] DEPARTMENT OF Footnote--------- PATHOLOGY AND GENOMIC MEDICINE ALT 15 5 - 50 U/L [facility] DEPARTMENT OF PATHOLOGY AND GENOMIC MEDICINE Total bilirubin <0.2 0.0 - 1.2 mg/dL [facility] DEPARTMENT OF PATHOLOGY AND GENOMIC MEDICINE Specimen Plasma specimen Performing Organization Address City/State/Zipcode Phone Number [facility] DEPARTMENT OF PATHOLOGY AND [address] [place] [address] GENOMIC MEDICINE after 10/26/2016 Insurance Payer Benefit Plan / Group Subscriber ID Type Phone Address MEDICARE MEDICARE PART A AND B xxxxxxxxxx Medicare [place], [place] MEDICAID MEDICAID xxxxxxxxx Medicaid [place] [phone]O [address] [place] [id number]
[2017-10-27] MEDS ORDERED: ONDANSETRON 4 MG/2 ML VIAL ONE ×3 (12:19→16:13)
[2017-10-27] MEDS ORDERED: FENTANYL CITR 100 MCG/2 ML ONE ×2 (12:20→14:08)
--- NOTE | 2017-10-27 12:52 | RAD REPORT ---
EXAM DESCRIPTION: CT - Head C Spine Cap Wo Con - 10/27/2017 12:38 pm CLINICAL HISTORY: Fall, head, neck, chest and abdomen pain, hip pain COMPARISON: CT chest August 02, 2017, CT head September 04, 2012 TECHNIQUE: Axial [address] head images were obtained. Axial [address] cervical spine images were obtain ed with sagittal and coronal reconstruction images reviewed. Axial 5 mm images of the chest, abdomen and pelvis were obtained. All CT scans are performed using dose optimization technique as appropriate and may include automated exposure control or mA/KV adjustment according to patient size. FINDINGS: No intracranial hemorrhage, mass or edema. No midline shift or abnormal fluid collection. Mastoid air cells and paranasal sinuses are clear. No skull fracture. Mild atrophy and chronic ische christina changes are present. Ventricular size is in proportion. Intracranial findings are stable from 201 3. Cervical bodies are normal in height and alignment. No fracture or acute bone finding.C5-6 disc space narrowing present with posterior endplate spurring. Disc bulge is likely present. There is significa nt central spinal stenosis at this level. Posterior endplate spurring and disc bulge also present at C3-4 and C4-5.No prevertebral soft tissue thickening or paraspinal mass.Central canal detail is inher ently limited on CT imaging. CT chest shows no pneumothorax, pulmonary contusion or pleural fluid collection. Scattered fibrotic c hanges are present in the lung parenchyma. No mediastinal hematoma and the aorta and pulmonary arteri es are unremarkable. No chest will mass or abnormal axillary finding. No acute rib fracture seen. The patient has multiple bilateral old rib fractures mostly on the right. CT abdomen and pelvis show no injury to solid abdominal viscera. Gallbladder and biliary tree are unr emarkable. No bowel injury or significant finding. No free air, free fluid or abnormal stranding. No hernia, mass or bulky lymphadenopathy. No urinary bladder abnormality. Patient has underlying bony degenerative change along with L5 pars defects. Patient has a comminuted intertrochanteric and neck base fracture on the left. Lesser trochanter is a free fracture fragment. Pathologic etiology is not suspected. There is hardware present in the proximal femoral shaft not ful ly imaged on this study. Inferior aspect of the fracture line is just above this hardware. No signifi cant periarticular hematoma. IMPRESSION: Comminuted left femur intertrochanteric and neck base fracture. Pathologic etiology not suspected. Mild atrophy and chronic ischemic change. No acute intracranial finding. Cervical spine degenerative change with significant C5-6 central spinal stenosis. No fracture or acut e finding seen. Multiple old rib fractures mostly on the right. No acute or significant CT chest finding. No injury to the solid abdominal visceral or bowel. No significant soft tissue finding.
[2017-10-27 12:58] LABS: Absolute Lymphocytes (CBC) 1.9 K/uL (0.7-4.9); Absolute Monocytes 0.4 K/uL (0.1-1.3); Absolute Neutrophil 1.6 K/uL (1.8-8.0); Basophils % 0.7 % (0-1.3); Eosinophils % 1.2 % (0-4.4); Hematocrit 30.5 % (36.0-45.0); Lymphocytes % 47.8 % (15.3-44.8); MCH 32.8 pg (27.0-35.0); MCV 95.4 fL (80-100); Monocytes % 9.4 % (3.3-12.3); RBC Red Blood Cell Count 3.19 M/uL (3.86-4.86)
[2017-10-27 13:01] LABS: Potassium 4.3 mmol/L (3.5-5.1)
--- NOTE | 2017-10-27 13:20 | RAD REPORT ---
EXAM DESCRIPTION: RAD - Hip Left 2 View - 10/27/2017 1:09 pm CLINICAL HISTORY: Left hip pain status post fall FINDINGS: Fracture involves the lesser trochanter and intertrochanter left femur with angulation pr esent at the fracture site. The lesser trochanter is avulsed medially. Sideplate and screws affix an old fracture of the left femoral shaft. 7 millimeter space between the superior aspect of the side plate and femur probably indicates loosening of the superior aspect of t he plate.
--- NOTE | 2017-10-27 13:23 | RAD REPORT ---
EXAM DESCRIPTION: RAD - Wrist Left 3 View - 10/27/2017 1:09 pm CLINICAL HISTORY: Left wrist pain status post injury FINDINGS: A splint is present about the wrist obscuring detail. Comminuted impacted fractures involve the distal radius and ulna. Moderate displacement of the radial fracture fragments is seen.
--- NOTE | 2017-10-27 14:48 | EDPHYS ---
Physician Documentation [facility] Name: Viri Jefferson Age: 62 yrs Sex: Female : 1955 Arrival Date: 10/27/2017 Time: 12:03 Bed 23 Private MD: ED Physician Logan Williamson HPI: 10/27 13:30 This 62 yrs old Female presents to ER via EMS with complaints of Fall Injury. kdr 13:30 Details of fall: The patient fell from an upright position, while walking. Onset: The kdr symptoms/episode began/occurred suddenly, just prior to arrival. Associated injuries: The patient sustained Left wrist and hip. Severity of symptoms: At their worst the symptoms were moderate, incapacitating, in the emergency department the symptoms. The patient has not experienced similar symptoms in the past. The patient has not recently seen a physician. Historical: - Allergies: 12:20 PENICILLINS; iw - Home Meds: 12:20 folic acid 400 mcg Oral tab 1 tab once daily [Active]; paroxetine HCl 40 mg Oral tab 1 iw tab once daily [Active]; vit D3 [Active]; Vitamin b 12 [Active]; Xeljanz 5 mg Oral tab 1 tab 2 times per day [Active]; - PMHx: 12:20 Anxiety; Diabetes - IDDM; Seizures; iw - PSHx: 12:20 left leg; left shoulder; left foot; iw - Immunization history: Last tetanus immunization: unknown. - Social history:: Smoking status: unknown. - Ebola Screening: : No symptoms or risks identified at this time. ROS: 13:30 Constitutional: Negative for fever, chills, and weight loss, Eyes: Negative for injury, kdr pain, redness, and discharge, ENT: Negative for injury, pain, and discharge, Neck: Negative for injury, pain, and swelling, Cardiovascular: Negative for chest pain, palpitations, and edema, Respiratory: Negative for shortness of breath, cough, wheezing, and pleuritic chest pain, Abdomen/GI: Negative for abdominal pain, nausea, vomiting, diarrhea, and constipation, Back: Negative for injury and pain, : Negative for injury, bleeding, discharge, and swelling, Skin: Negative for injury, rash, and discoloration, Neuro: Negative for headache, weakness, numbness, tingling, and seizure activity. Psych: Negative for depression, anxiety, suicide ideation, homicidal ideation, and hallucinations, Allergy/Immunology: Negative for hives, rash, and allergies, Endocrine: Negative for neck swelling, polydipsia, polyuria, polyphagia, and marked weight changes, Hematologic/Lymphatic: Negative for swollen nodes, abnormal bleeding, and unusual bruising. 13:30 MS/extremity: Positive for injury or acute deformity, decreased range of motion, pain, swelling, tenderness, of the left hip, left wrist and left leg. Exam: 13:30 Constitutional: This is a well developed, well nourished patient who is awake, alert, kdr and in no acute distress. Head/Face: Normocephalic, atraumatic. Neck: Trachea midline, no thyromegaly or masses palpated, and no cervical lymphadenopathy. Supple, full range of motion without nuchal rigidity, or vertebral point tenderness. No Meningismus. Chest/axilla: Normal chest wall appearance and motion. Nontender with no deformity. No lesions are appreciated. Cardiovascular: Regular rate and rhythm with a normal S1 and S2. No gallops, murmurs, or rubs. Normal PMI, no JVD. No pulse deficits. Respiratory: Lungs have equal breath sounds bilaterally, clear to auscultation and percussion. No rales, rhonchi or wheezes noted. No increased work of breathing, no retractions or nasal flaring. Abdomen/GI: Soft, non-tender, with normal bowel sounds. No distension or tympany. No guarding or rebound. No evidence of tenderness throughout. Back: No spinal tenderness. No costovertebral tenderness. Full range of motion. Skin: Warm, dry with normal turgor. Normal color with no rashes, no lesions, and no evidence of cellulitis. Neuro: Awake and alert, GCS 15, oriented to person, place, time, and situation. Cranial nerves II-XII grossly intact. Motor strength 5/5 in all extremities. Sensory grossly intact. Cerebellar exam normal. Normal gait. Psych: Awake, alert, with orientation to person, place and time. Behavior, mood, and affect are within normal limits. 13:30 Musculoskeletal/extremity: Extremities: The patient has dinner fork deformity of the left wrist with n/v intact distally. The patient will not move the left hip/thigh. Vital Signs: 12:00 BP 189 / 70; Pulse 74; Resp 16; Temp 98.2; Pulse Ox 96% on R/A; Weight 81.65 kg; Height iw 5 ft. 5 in. (165.10 cm); Pain 10/10; 13:22 BP 150 / 56; Pulse 76; Resp 16; Pulse Ox 98% on R/A; la1 14:09 BP 166 / 72; Pulse 75; Resp 16; Pulse Ox 96% on R/A; la1 15:16 BP 123 / 67; Pulse 63; Resp 16; Pulse Ox 97% on 2 lpm NC; la1 16:17 BP 123 / 55; Pulse 91; Resp 16; Pulse Ox 100% on R/A; la1 12:00 Body Mass Index 29.95 (81.65 kg, 165.10 cm) iw Molina Coma Score: 12:00 Eye Response: spontaneous(4). Verbal Response: oriented(5). Motor Response: obeys iw commands(6). Total: 15. Trauma Score (Adult): 12:00 Eye Response: spontaneous(1); Verbal Response: oriented(1); Motor Response: obeys iw commands(2); Systolic BP: > 89 mm Hg(4); Respiratory Rate: 10 to 29 per min(4); Molina Score: 15; Trauma Score: 12 13:22 Eye Response: spontaneous(1); Verbal Response: oriented(1); Motor Response: obeys la1 commands(2); Systolic BP: > 89 mm Hg(4); Respiratory Rate: 10 to 29 per min(4); Athens Score: 15; Trauma Score: 12 14:09 Eye Response: spontaneous(1); Verbal Response: oriented(1); Motor Response: obeys la1 commands(2); Systolic BP: > 89 mm Hg(4); Respiratory Rate: 10 to 29 per min(4); Athens Score: 15; Trauma Score: 12 15:16 Eye Response: spontaneous(1); Verbal Response: oriented(1); Motor Response: obeys la1 commands(2); Systolic BP: > 89 mm Hg(4); Respiratory Rate: 10 to 29 per min(4); Molina Score: 15; Trauma Score: 12 16:18 Eye Response: spontaneous(1); Verbal Response: oriented(1); Motor Response: obeys la1 commands(2); Systolic BP: > 89 mm Hg(4); Respiratory Rate: 10 to 29 per min(4); Athens Score: 15; Trauma Score: 12 MDM: 13:30 Data reviewed: vital signs, nurses notes. Counseling: I had a detailed discussion with [facility] the patient and/or guardian regarding: the historical points, exam findings, and any diagnostic results supporting the discharge/admit diagnosis, lab results, radiology results, the need to transfer to another facility. ED course: The patient requested transfer to [facility] where she has an orthopedist. 14:47 Patient medically screened. [facility] 10/27 12:06 Order name: Basic Metabolic Panel; Complete Time: 13:23 [facility] 10/27 12:06 Order name: CBC with Diff; Complete Time: 13:23 [facility] 10/27 12:06 Order name: CT Traumagram (Head C Spine CAP wo con); Complete Time: 13:23 [facility] 10/27 12:06 Order name: Creatinine for Radiology; Complete Time: 13:23 [facility] 10/27 12:06 Order name: Type And Screen; Complete Time: 14:35 [facility] 10/27 12:06 Order name: Hip Left 2 View XRAY; Complete Time: 13:23 [facility] 10/27 12:06 Order name: Labs collected and sent; Complete Time: 12:37 [facility] 10/27 12:06 Order name: Wrist Left (3 View) XRAY; Complete Time: 14:36 [facility] 10/27 15:32 Order name: Helene; Complete Time: 15:41 la1 Administered Medications: 12:30 Drug: fentaNYL (PF) 50 mcg Route: IVP; Site: right forearm; ja1 15:41 Follow up: Response: No adverse reaction; Pain is decreased la1 12:30 Drug: Zofran 4 mg Route: IVP; Site: right forearm; ja1 15:42 Follow up: Response: No adverse reaction la1 14:09 Drug: fentaNYL (PF) 50 mcg Route: IVP; Site: right forearm; la1 15:41 Follow up: Response: No adverse reaction; Pain is decreased la1 14:38 Drug: Zofran 4 mg Route: IVP; Site: right forearm; la1 15:41 Follow up: Response: No adverse reaction la1 16:13 Drug: Zofran 4 mg Route: IVP; Site: right forearm; la1 16:14 Follow up: Response: No adverse reaction la1 16:14 Drug: fentaNYL (PF) 50 mcg Route: IVP; Site: right forearm; la1 16:14 Follow up: Response: No adverse reaction; Pain is decreased la1 Disposition: 10/27/17 14:47 Transfer ordered to [facility]. Diagnosis is Clsoed comminuted Left distal radius/ulna fracture; left intertrochanteric hip fracture. - Reason for transfer: Higher level of care. - Accepting physician is Dr. Gutierrez. - Condition is Fair. - Problem is new. - Symptoms have improved. Signatures: Dispatcher [employer] EDMS Logan Williamson MD MD kdr Manisha Dubon RN RN iw Raciel Swain RN RN gita1 Festus Kaur RN RN ja1 Corrections: (The following items were deleted from the chart) 16:19 14:47 10/27/2017 14:47 Transfer ordered to [facility]. Diagnosis is la1 Clsoed comminuted Left distal radius/ulna fracture; left intertrochanteric hip fracture. Reason for transfer: Higher level of care. Accepting physician is Dr. Gutierrez. Condition is Fair. Problem is new. Symptoms have improved. kdr
--- NOTE | 2017-10-27 14:48 | ER ---
Nurse's Notes [facility] Name: Viri Jefferson Age: 62 yrs Sex: Female : 1955 Arrival Date: 10/27/2017 Time: 12:03 Bed 23 Private MD: Diagnosis: Clsoed comminuted Left distal radius/ulna fracture; left intertrochanteric hip fracture Presentation: 10/27 12:15 Presenting complaint: EMS states: pt slipped at home in drive way, fell to left side, iw no LOC, obvious deformity to left wrist, abrasion to left elbow, also has pain to left side of chest radiating to left hip and left leg, A\T\OX3. Care prior to arrival: Placed on backboard. Mechanism of Injury: Fall from standing position. Trauma event details: Injury occurred in the [facility], Injury occurred: at home. Injury occurred: October 27, 2017. 12:19 Acuity: RUSS 2 iw 12:19 Method Of Arrival: EMS: [facility] iw 12:21 Transition of care: patient was not received from another setting of care. Onset of iw symptoms was October 27, 2017. Risk Assessment: Do you want to hurt yourself or someone else? Patient reports no desire to harm self or others. Initial Sepsis Screen: Does the patient meet any 2 criteria? No. Patient's initial sepsis screen is negative. Does the patient have a suspected source of infection? No. Patient's initial sepsis screen is negative. Trauma Activation: Alert Physician: ED Physician; Name: Dr. Williamson; Notified At: 11:57; Arrived At: 11:57 Physician: General Surgeon; Name: N/A; Notified At: 11:57; Arrived At: N/A Physician: Radiology; Name: Trista; Notified At: 11:57; Arrived At: 11:57 Physician: Respiratory; Name: N/A; Notified At: 11:57; Arrived At: N/A Physician: Lab; Name: N/A; Notified At: 11:57; Arrived At: N/A Historical: - Allergies: 12:20 PENICILLINS; iw - Home Meds: 12:20 folic acid 400 mcg Oral tab 1 tab once daily [Active]; paroxetine HCl 40 mg Oral tab 1 iw tab once daily [Active]; vit D3 [Active]; Vitamin b 12 [Active]; Xeljanz 5 mg Oral tab 1 tab 2 times per day [Active]; - PMHx: 12:20 Anxiety; Diabetes - IDDM; Seizures; iw - PSHx: 12:20 left leg; left shoulder; left foot; iw - Immunization history: Last tetanus immunization: unknown. - Social history:: Smoking status: unknown. - Ebola Screening: : No symptoms or risks identified at this time. Screenin:21 Abuse screen: Denies threats or abuse. Denies injuries from another. Tuberculosis iw screening: No symptoms or risk factors identified. 12:36 Nutritional screening: No deficits noted. Fall Risk Fall in past 12 months (25 points). la1 No secondary diagnosis (0 pts). IV access (20 points). Ambulatory Aid- None/Bed Rest/Nurse Assist (0 pts). Gait- Weak (10 pts.). Mental Status- Oriented to own ability (0 pts). Total Hi Fall Scale indicates High Risk Score (45 or more points). As available patient and family educated on Fall Prevention Program and Strategies. Primary Survey: 12:05 A: Airway: patent. Breathing/Chest: Respiratory pattern: regular, Respiratory effort: iw spontaneous, Breath sounds: clear, bilaterally. Chest inspection: symmetrical rise and fall of the chest. 12:35 Circulation: Skin color: pink, Skin temperature: warm. Disability Alert. la1 12:35 Reassessment Airway Airway Patent Breathing/Chest Respiratory pattern Regular la1 Respiratory effort Spontaneous Unlabored Breath sounds Clear Chest inspection Symmetrical Circulation Color Gazelle Temperature Warm Disability Alert. 13:22 A: Airway: patent. Breathing/Chest: Respiratory pattern: regular, Respiratory effort: la1 spontaneous, unlabored, Breath sounds: clear, Chest inspection: symmetrical rise and fall of the chest. 16:15 A: Airway: patent. Breathing/Chest: Respiratory pattern: regular, Respiratory effort: la1 spontaneous, unlabored, Breath sounds: clear, Chest inspection: symmetrical rise and fall of the chest. Circulation: Skin color: pink, Skin temperature: warm. Disability Alert. Secondary Survey: 12:24 HEENT: No deficits noted. Head No injury/deformity Eyes: No injury or deformity noted. iw to bilateral eyes. Ears: clear bilaterally. Nose: clear to bilateral nares. Gastrointestinal: Abdomen is soft, flat, Palpation No deficit noted. Musculoskeletal: Range of motion: limited in left elbow, left wrist and left hip Bony deformity noted of left wrist. Assessment: 12:11 General: Appears uncomfortable, Behavior is calm, cooperative. Pain: Complains of pain iw in left hip and left leg Pain currently is 10 out of 10 on a pain scale. 12:12 Neuro: Level of Consciousness is awake, alert, Oriented to person, place, time, iw situation. Cardiovascular: Patient's skin is warm and dry. Respiratory: Respiratory effort is even, unlabored. Derm: Bruising that is dark purple, on left elbow. Musculoskeletal: Range of motion: limited in left hip Bony deformity noted of left wrist. Musculoskeletal: Range of motion: limited in left wrist Swelling present in left wrist. Injury Description: Abrasion sustained to left elbow. 12:26 Reassessment: pt transported to CT via stretcher, with information tech. iw 13:48 Reassessment: No changes from previously documented assessment. Patient and/or family la1 updated on plan of care and expected duration. Pain level reassessed. Patient is alert, oriented x 3, equal unlabored respirations, skin warm/dry/pink. Vital Signs: 12:00 BP 189 / 70; Pulse 74; Resp 16; Temp 98.2; Pulse Ox 96% on R/A; Weight 81.65 kg; Height iw 5 ft. 5 in. (165.10 cm); Pain 10/10; 13:22 BP 150 / 56; Pulse 76; Resp 16; Pulse Ox 98% on R/A; la1 14:09 BP 166 / 72; Pulse 75; Resp 16; Pulse Ox 96% on R/A; la1 15:16 BP 123 / 67; Pulse 63; Resp 16; Pulse Ox 97% on 2 lpm NC; la1 16:17 BP 123 / 55; Pulse 91; Resp 16; Pulse Ox 100% on R/A; la1 12:00 Body Mass Index 29.95 (81.65 kg, 165.10 cm) iw Albin Coma Score: 12:00 Eye Response: spontaneous(4). Verbal Response: oriented(5). Motor Response: obeys iw commands(6). Total: 15. Trauma Score (Adult): 12:00 Eye Response: spontaneous(1); Verbal Response: oriented(1); Motor Response: obeys iw commands(2); Systolic BP: > 89 mm Hg(4); Respiratory Rate: 10 to 29 per min(4); Albin Score: 15; Trauma Score: 12 13:22 Eye Response: spontaneous(1); Verbal Response: oriented(1); Motor Response: obeys la1 commands(2); Systolic BP: > 89 mm Hg(4); Respiratory Rate: 10 to 29 per min(4); Molina Score: 15; Trauma Score: 12 14:09 Eye Response: spontaneous(1); Verbal Response: oriented(1); Motor Response: obeys la1 commands(2); Systolic BP: > 89 mm Hg(4); Respiratory Rate: 10 to 29 per min(4); Molina Score: 15; Trauma Score: 12 15:16 Eye Response: spontaneous(1); Verbal Response: oriented(1); Motor Response: obeys la1 commands(2); Systolic BP: > 89 mm Hg(4); Respiratory Rate: 10 to 29 per min(4); Molina Score: 15; Trauma Score: 12 16:18 Eye Response: spontaneous(1); Verbal Response: oriented(1); Motor Response: obeys la1 commands(2); Systolic BP: > 89 mm Hg(4); Respiratory Rate: 10 to 29 per min(4); Molina Score: 15; Trauma Score: 12 ED Course: 12:03 Patient arrived in ED. dm5 12:03 Logan Williamson MD is Attending Physician. kdr 12:11 Manisha Dubon RN is Primary Nurse. iw 12:19 Triage completed. iw 12:21 Arm band placed on. iw 12:21 Patient maintains SpO2 saturation greater than 95% on room air. Thermoregulation: warm iw blanket given to patient. 12:25 Inserted saline lock: 22 gauge in right forearm, using aseptic technique. em1 12:34 Bed in low position. Call light in reach. Side rails up X 1. la1 12:35 Patient moved to radiology via stretcher. jb2 12:38 CT Traumagram (Head C Spine CAP wo con) In Process Unspecified. EDMS 13:06 X-ray completed. Patient tolerated procedure well. Patient moved back from radiology. jb2 13:07 Hip Left 2 View XRAY In Process Unspecified. EDMS 13:07 Wrist Left (3 View) XRAY In Process Unspecified. EDMS 13:31 initiated a transfer with Alejandro at the [facility]. eb 14:07 Alejandro from, the [facility] center called to ask for a 30 min extension on the eb transfer, she is waiting for the orthopedic surgeon to return the page. 15:40 Narayan cath inserted, using sterile technique, 18 Fr., by ED staff, balloon inflated, to la1 gravity drainage, Patient tolerated well. 16:17 No provider procedures requiring assistance completed. Patient transferred, IV remains la1 in place. Administered Medications: 12:30 Drug: fentaNYL (PF) 50 mcg Route: IVP; Site: right forearm; ja1 15:41 Follow up: Response: No adverse reaction; Pain is decreased la1 12:30 Drug: Zofran 4 mg Route: IVP; Site: right forearm; ja1 15:42 Follow up: Response: No adverse reaction la1 14:09 Drug: fentaNYL (PF) 50 mcg Route: IVP; Site: right forearm; la1 15:41 Follow up: Response: No adverse reaction; Pain is decreased la1 14:38 Drug: Zofran 4 mg Route: IVP; Site: right forearm; la1 15:41 Follow up: Response: No adverse reaction la1 16:13 Drug: Zofran 4 mg Route: IVP; Site: right forearm; la1 16:14 Follow up: Response: No adverse reaction la1 16:14 Drug: fentaNYL (PF) 50 mcg Route: IVP; Site: right forearm; la1 16:14 Follow up: Response: No adverse reaction; Pain is decreased la1 Output: 16:18 Urine: 250ml (Narayan); Total: 250ml. la1 Outcome: 14:47 ER care complete, transfer ordered by . kdr 16:18 Transferred by ground EMS to [facility], Transfer form completed. X-rays la1 sent w/ patient. 16:18 Condition: stable 16:18 Patient's length of stay in the Emergency Department was greater than 2 hours. rad and transferPatient's length of stay extended due to 16:19 Patient left the ED. la1 Signatures: Dispatcher [employer] Hannah Alfaro RN RN dm5 Logan Williamson MD MD kdr Buechter, Jesse jb2 Manisha Dubon, RN RN iw Will Quintanilla em1 Raciel Swain RN RN la1 Festus Kaur, RN RN Hailee Cevallos Corrections: (The following items were deleted from the chart) 12:14 12:11 General: Appears uncomfortable, Behavior is calm, cooperative, iw iw 12:23 12:11 Pain: Complains of pain in left hip and left leg Pain currently is 9 out of 10 on iw a pain scale. iw 12:39 12:19 Trauma Activation: Alert iw iw
[2017-10-27 16:27] VITALS: TEMP 98.2
[2017-10-27 16:33] VITALS: BP 123/55; O2SAT 100
== END 2017-10-27 16:19 | disposition short-term general hospital (02) ==
LOC: ER 11:50
DX: S52.502A Unspecified fracture of the lower end of left radius, initial encounter for closed fracture (principal); S52.602A Unspecified fracture of lower end of left ulna, initial encounter for closed fracture; S72.092A Other fracture of head and neck of left femur, initial encounter for closed fracture; W19.XXXA Unspecified fall, initial encounter; Y93.01 Activity, walking, marching and hiking; Y92.9 Unspecified place or not applicable; Z88.0 Allergy status to penicillin; E11.9 Type 2 diabetes mellitus without complications; F41.9 Anxiety disorder, unspecified; G40.909 Epilepsy, unspecified, not intractable, without status epilepticus
CPT/HCPCS: 36415; 51702; 70450; 71250; 72125; 73110; 73502; 80048; 85025; 86850; 86900; 86901; 96374; 96375; 99285; J2405 ×3; J3010 ×2

== ENCOUNTER 2018-02-14 20:31 | Inpatient (IN) | payer OTHER ==
--- OUTSIDE RECORDS SUMMARY | 2018-02-14 20:36 | XMS REPORT | Clinical Summary ---
:1955 Author Organization [facility] Address [address] [place] [address] Care Team Providers Name Role Phone Leandro Plaza MD Primary Care Provider Allergies Active Allergy Reactions Severity Noted Date Comments Penicillins Anaphylaxis High 10/05/2015 Medications Medication Sig Dispensed Refills Start End Date Status Date lisinopril 20 mg daily. 0 Active (PRINIVIL,ZESTRIL) 5 daily MG tablet exenatide Inject 2 mg 4 each 6 Active microspheres under the skin 6 (BYDUREON) 2 mg/0.65 every 7 days for mL pen 90 days. 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 folic acid (FOLVITE) Take 400 mcg by 0 Active 1 MG tablet mouth daily. memantine (NAMENDA) Take 10 mg by 0 Active 10 MG tablet mouth 2 (two) times a day. glipiZIDE 0 Active (GLUCOTROL) 5 MG 8 tablet metoprolol tartrate Take 12.5 mg by 0 Active (LOPRESSOR) 25 mg mouth daily. [address] 0.4 mg 0 Active (NITROSTAT) 0.4 MG under the tongue 8 SL tablet as needed. PARoxetine (PAXIL) Take 40 mg by 0 Active 40 MG tablet mouth every 8 morning. XELJANZ 5 mg tablet Take 5 mg by 0 Active mouth daily. 8 aspirin (ECOTRIN) 81 Take 1 tablet 30 tablet 11 01/29/20 Active MG enteric coated (81 mg total) by 8 19 tablet mouth daily. clopidogrel (PLAVIX) Take 1 tablet 30 tablet 11 01/29/20 Active 75 mg tablet (75 mg total) by 8 19 mouth daily. atorvastatin Take 1 tablet 30 tablet 11 01/28/20 Active (LIPITOR) 20 MG (20 mg total) by 8 19 tablet mouth nightly. Default OP ins PARoxetine (PAXIL) 40 mg daily. 0 11/18/19 Discontinued 40 MG tablet daily 18 chlorhexidine 1 bid 0 11/18/19 Discontinued (PERIDEX) 0.12 % 18 solution ferrous sulfate 325 daily 0 01/27/20 Discontinued (65 FE) MG tablet 18 insulin GLARGINE Inject 16 Units 15 mL 3 01/27/20 Discontinued (LANTUS SOLOSTAR) under the skin 6 18 100 unit/mL (3 mL) nightly. insulin penIndications: Type 2 diabetes, uncontrolled, with retinopathy (HCC) gatifloxacin 1 drop 2 (two) 0 11/18/19 Discontinued (ZYMAXID) 0.5 % times a day. 18 drops ciprofloxacin HCl Administer to 0 11/18/19 Discontinued (CILOXAN) 0.3 % the right eye 3 18 ophthalmic ointment (three) times a day as needed. cholecalciferol, Take 4,000 Units 0 11/18/19 Discontinued vitamin D3, (VITAMIN by mouth daily. 18 D3) 2,000 unit capsule capsule glyBURIDE (DIABETA) Take 5 mg by mouth 2 (two) times a day with meals. Patient only takes when Blood Sugar is over 150 If sugar is 200 1/2 Pill 0 11/18/19 Discontinued 5 MG tablet If sugar is 300 whole pill 18 tofacitinib 5 mg Take 5 mg by 0 11/18/19 Discontinued tablet mouth 2 (two) 18 times a day. acetaminophen Take 2 tablets 0 12/18/19 (TYLENOL) 325 MG (650 mg total) 8 18 tablet by mouth every 4 (four) hours as needed for mild pain, headaches or fever for up to 30 days. traMADol (ULTRAM) 50 Take 1 tablet 0 12/02/19 mg tablet (50 mg total) by 8 18 mouth every 6 (six) hours as needed for moderate pain for up to 14 days. calcium carbonate Chew 1 tablet 0 12/18/19 (TUMS) 200 mg (500 mg total) 3 8 18 calcium (500 mg) (three) times a chewable tablet day as needed for indigestion for up to 30 days. simethicone Chew 1.5 tablets 0 12/18/19 (MYLICON) 80 MG (120 mg total) 4 8 18 chewable tablet (four) times a day as needed for flatulence for up to 30 days. ipratropium-albutero Take 3 mL by 0 12/18/19 l (DUO-NEB) 0.5-2.5 nebulization 8 18 mg/mL nebulizer Every 4 hours while awake as needed (RT) for wheezing for up to 30 days. metoprolol tartrate Take 1 tablet 60 tablet 0 12/18/19 (LOPRESSOR) 25 mg (25 mg total) by 8 18 tablet mouth 2 (two) times a day for 30 days. enoxaparin (LOVENOX) Inject 0.3 mL 9 mL 0 12/18/19 30 mg/0.3 mL syringe (30 mg total) 8 18 under the skin daily for 30 days. insulin lispro Inject 0-5 Units 10 mL 12/18/19 (HumaLOG) 100 under the skin 3 8 18 unit/mL injection (three) times a day with meals for 30 days. insulin lispro Inject 3 Units 10 mL 12/19/19 (HumaLOG) 100 under the skin 8 18 unit/mL injection daily with breakfast for 30 days. insulin lispro Inject 4 Units 10 mL 12/19/19 (HumaLOG) 100 under the skin 8 18 unit/mL injection daily with lunch for 30 days. insulin lispro Inject 4 Units 10 mL 12 12/18/19 (HumaLOG) 100 under the skin 8 18 unit/mL injection daily with dinner for 30 days. sennosides-docusate Take 2 tablets 120 tablet 0 12/18/19 sodium (SENOKOT-S) by mouth 2 (two) 8 18 8.6-50 mg per tablet times a day for 30 days. polyethylene glycol Take 17 g by 0 12/18/19 (MIRALAX) 17 gram mouth daily as 8 18 packet needed for constipation for up to 30 days. bisacodyl (DULCOLAX) Insert 1 0 12/18/19 10 mg suppository suppository (10 8 18 mg total) into the rectum daily as needed for constipation for up to 30 days. HYDROcodone-acetamin Take 1 tablet by 0 12/02/19 ophen (NORCO) 10-325 mouth every 6 8 18 mg per tablet (six) hours as needed for severe pain for up to 14 days. Max Daily Amount: 4 tablets aspirin (ECOTRIN) 81 Take 1 tablet 30 tablet 0 12/19/19 MG enteric coated (81 mg total) by 8 18 tablet mouth daily for 30 days. PARoxetine (PAXIL) Take 1 tablet 30 tablet 0 12/19/19 40 MG tablet (40 mg total) by 8 18 mouth daily for 30 days. cyclobenzaprine Take 1 tablet (5 0 12/18/19 (FLEXERIL) 5 mg mg total) by 8 18 tablet mouth 3 (three) times a day as needed for muscle spasms for up to 30 days. ergocalciferol Take 1 capsule 4 capsule 0 12/23/19 (VITAMIN D2) 50,000 (50,000 Units 8 18 unit capsule total) by mouth once a week for 30 days. doxycycline Take 1 capsule 0 11/28/19 (VIBRAMYCIN) 50 MG (50 mg total) by 8 18 capsule mouth 2 (two) times a day for 10 days. atorvastatin Take 1 tablet 30 tablet 0 12/18/19 (LIPITOR) 10 MG (10 mg total) by 8 18 tablet mouth daily for 30 days. Active Problems Problem Noted Date Atherosclerosis of [place] coronary artery of [place] heart with unstable 2017 angina pectoris NSTEMI (non-ST elevated myocardial infarction) 11/17/2017 Controlled type 2 diabetes mellitus with diabetic nephropathy, without 2017 long-term current use of insulin Acute renal failure superimposed on stage 3 chronic kidney disease 11/13/2017 Troponin level elevated 10/29/2017 Chest pain 10/28/2017 Closed intertrochanteric fracture of left femur 10/28/2017 Closed fracture of left wrist 10/28/2017 Hip fracture 10/28/2017 Vitamin D deficiency 10/28/2017 Anemia of renal disease 05/26/2016 Anemia, macrocytic 11/28/2015 Osteoporosis with current pathological fracture 11/04/2015 Overview: Osteoporosis s/p RECLAST BMD OP [...] s/p stent x 1 10/05/2015 Hypothyroidism 10/05/2015 Hypertension 10/05/2015 Diabetes mellitus due to underlying condition with diabetic nephropathy 2015 Encounters Date Type Specialty Care Team Description 01/27/2018 Patient Outreach Quality Kaci Preston RN 01/26/2018 Surgery Procedural Sanjay Kebede Selective coronary Cardiology MD [place] angiography [18030 (CPT)] 01/26/2018 Hospital Cardiology Sanjay Kebede Atherosclerosis of [place] - Encounter MD [place] coronary artery of [place] 01/27/2018 heart with unstable angina pectoris (HCC) 11/08/2017 Anesthesia Event Orthopedic Mary, Malini Gastelum MD 11/08/2017 Surgery Orthopedic Denny Martinez LEFT PROXIMAL FEMUR ORIF Malini Claros MD AND ANY INDICATED PROCEDURES 11/03/2017 Surgery Procedural Sanjay Kebede Cv left heart cath [[id number] Cardiology MD Francisco (CPT)] 10/27/2017 Hospital Orthopedic [place] barr NSTEMI (non-ST elevated myocardial infarction) (Primary Dx); - Encounter Surgery MD Harlan Closed 2-part intertrochanteric fracture of left femur, initial encounter; 11/17/2017 Broken wrist, left, closed, initial encounter; Coronary artery disease s/p stent x 1 10/27/2017 Intake Access N/A 08/30/2017 [facility] Sleep Medicine Tom, Encounter Elizabeth Mcclain MD 08/17/2017 Transcribe Orders Sleep Medicine Bounds Wu, Obstructive sleep apnea Varsha syndrome (Primary Dx) 07/20/2017 [facility] Sleep Medicine Tom, Encounter Elizabeth Mcclain MD 07/19/2017 Transcribe Orders Sleep Medicine Bounds Wu, Obstructive sleep apnea Varsha syndrome (Primary Dx) 02/23/2017 Lab Lab Leandro Plaza Pure hypercholesterolemia (Primary Dx); MD Mandy Idiopathic atrophic hypothyroidism; Rickets, active; Urinary tract infection without hematuria, site unspecified after 02/13/2017 Family History Medical History Relation Name Comments Alzheimer's disease Father Dementia Father Dementia Mother Diabetes Mother Other Mother Epilepsy Relation Name Status Comments Father (Age 80's) Mother Social History Tobacco Use Types Packs/Day Years Used Date Never Smoker Smokeless Tobacco: Never Used Comments: She is ; her daughters live with her. She was born in [place], [place] and raised in [place]. She worked as a charge aide. Alcohol Use Drinks/Week oz/Week Comments No Sex Assigned at Date Recorded Not on file Job Start Date Occupation Industry Not on file Not on file Not on file Travel History Travel Start Travel End No recent travel history available. Last Filed Vital Signs Vital Sign Reading Time Taken Blood Pressure 149/66 01/27/2018 9:51 AM [employer]LEVATOR MECHANIC Pulse 50 01/27/2018 9:51 AM ELEVATOR MECHANIC Temperature 36.3 C (97.3 F) 01/27/2018 7:44 AM ELEVATOR MECHANIC Respiratory Rate 23 01/27/2018 9:51 AM ELEVATOR MECHANIC Oxygen Saturation 94% 01/27/2018 9:51 AM ELEVATOR MECHANIC Inhaled Oxygen Concentration - - Weight 82.4 kg (181 lb 11.2 oz) 01/26/2018 8:58 AM ELEVATOR MECHANIC Height 165.1 cm (5' 5") 01/26/2018 8:58 AM ELEVATOR MECHANIC Body Mass Index 30.24 01/26/2018 8:58 AM ELEVATOR MECHANIC Plan of Treatment Health Maintenance Due Date Last Done Comments CERVICAL CANCER SCREENING 09/24/1975 BREAST CANCER SCREENING 2004 COLON CANCER SCREENING 2004 SHINGLES VACCINES (1 of 2) 2004 DIABETIC RETINAL EYE EXAM 01/08/2016 01/07/2015 DIABETIC FOOT EXAM 11/03/2016 11/04/2015, 11/04/2015 INFLUENZA VACCINE 09/20/2017 Implants Implanted Type Area Director Voice Device Shelf Model / Identifier Expiration Serial / Date Lot Catheter Bln Otw 2.5mm 12mm Sprinter - [id number] Cardiovascular N/A: [employer] [facility] [id number] / Implanted: 11/03/2017 (Quantity not on file) Implants N/A - VASCULAR / Catheter Bln Otw 2.5mm 12mm Sprinter - [id number] Cardiovascular N/A: [employer] [facility] [id number] / Implanted: 01/26/2018 (Quantity not on file) Implants N/A - VASCULAR / Stent System 3.0 X 15mm Resolute Cale Otw Coronary - [id number] Coronary Stents N/A: [employer] [facility] [id number] / Implanted: 01/26/2018 (Quantity not on file) N/A - CARDIAC / RYHTYM MGMT Stent System 3.0 X 15mm Resolute [place] Otw Coronary - [id number] Coronary Stents N/A: [employer] [facility] [id number] / Implanted: 01/26/2018 (Quantity not on file) N/A - CARDIAC / RYHTYM MGMT Stent System 2.50 X 34mm Resolute Cale Rx Coronary - [id number] Coronary Stents N/A: [employer] [facility] [id number] / Implanted: 01/26/2018 (Quantity not on file) N/A - CARDIAC / RYHTYM MGMT Stent System 2.50 X 12mm Resolute [place] Otw Coronary - [id number] Coronary Stents N/A: [employer] [facility] [id number] / Implanted: 01/26/2018 (Quantity not on file) N/A - CARDIAC / RYHTYM MGMT Lock Screw Square 2.7mm X 22mm - [id number] [id number] IMPLANT Left: BIOMET TRAUMA [id number] / Implanted: 11/08/2017 (Quantity not on file) DEVICES Wrist / Lock Screw Square 2.7mm X 18mm - [id number] [id number] IMPLANT Left: [employer]MA [id number] / Implanted: 11/08/2017 (Quantity not on file) DEVICES Wrist / Lp Non Lock 2.7mm X 14mm - [id number] [id number] IMPLANT Left: BI[employer]MA [id number] / Implanted: 11/08/2017 (Quantity not on file) DEVICES Wrist / Lp Non Lock 2.7mm X 20mm - [id number] [id number] IMPLANT Left: BI[employer]ET [employer]MA [id number] / Implanted: 11/08/2017 (Quantity not on file) DEVICES Wrist / 95 Deg Condylar Plate 9 Holes/80mm/156mm - [id number] [id number] IMPLANT Left: SYNTHES TRAUMA [id number] / Implanted: 11/08/2017 (Quantity not on file) DEVICES Femur / Dvr Lock Medium L - [id number] [id number] IMPLANT Left: [employer] [id number] / Implanted: 11/08/2017 (Quantity not on file) DEVICES Wrist / Lock Screw Square 2.7mm X 16mm - [id number] [id number] IMPLANT Left: BI[employer]MA [id number] / Implanted: 11/08/2017 (Quantity not on file) DEVICES Wrist / Lock Screw Square 2.7mm X 15mm - [id number] [id number] IMPLANT Left: BI[employer]MA [id number] / Implanted: 11/08/2017 (Quantity not on file) DEVICES Wrist / Lock Screw Square 2.7mm X 20mm - [id number] [id number] IMPLANT Left: [employer]MA [id number] / Implanted: 11/08/2017 (Quantity not on file) DEVICES Wrist / Screw Bone Joel Slf-Tap W/ Lg Hxgnl Socket Ss 4.5x36mm - [id number] Orthopedic Trauma Left: SYNTHES TRAUMA [id number] / Implanted: 11/08/2017 (Quantity not on file) Implants Femur AND RECON / Screw Bone Joel Slf-Tap W/ Lg Hxgnl Socket Ss 4.5x38mm - [id number] Orthopedic Trauma Left: SYNTHES TRAUMA 214 838 / Implanted: 11/08/2017 (Quantity not on file) Implants Femur AND RECON / Screw Bone Joel Slf-Tap W/ Lg Hxgnl Socket Ss 4.5x42mm - [id number] Orthopedic Trauma Left: SYNTHES TRAUMA 214 842 / Implanted: 11/08/2017 (Quantity not on file) Implants Femur AND RECON / Screw Bone Joel Slf-Tap W/ Lg Hxgnl Socket Ss 4.5x44mm - [id number] Orthopedic Trauma Left: SYNTHES TRAUMA 214 844 / Implanted: 11/08/2017 (Quantity not on file) Implants Femur AND RECON / Screw Bone Joel Slf-Tap W/ Lg Hxgnl Socket Ss 4.5x48mm - [id number] Orthopedic Trauma Left: SYNTHES TRAUMA 214 848 / Implanted: 11/08/2017 (Quantity not on file) Implants Femur AND RECON / Screw Bone Joel Slf-Tap W/ Lg Hxgnl Socket Ss 4.5x90mm - [id number] Orthopedic Trauma Left: SYNTHES TRAUMA 214 890 / Implanted: 11/08/2017 (Quantity not on file) Implants Femur AND RECON / Screw Bone Canltd Thred Lg Hxgnl Socket Ss [id number] - [id number] Orthopedic Trauma Left: SYNTHES TRAUMA 208 875 / Implanted: 11/08/2017 (Quantity not on file) Implants Femur AND RECON / System Clsr Sut Meditd 6fr Perclose Proglide - [id number] Surgical N/A: EVANS 08/20/2019 [id number] / Implanted: 11/03/2017 (Quantity not on file) Implants; N/A VASCULAR / Expanders; DEVICES [id number] Extenders; Surgical Wires Explanted Type Area Director Voice Device Shelf Model / Identifier Expiration Serial / Date Lot Lock Screw Square 2.7mm X 14mm - [id number] IPM IMPLANT Left: [employer]MA [id number] / Implanted: 11/08/2017 (Quantity not on file) DEVICES Wrist / Explanted: 11/08/2017 (Quantity not on file) Screw Bone Canltd Thred Lg Hxgnl Socket Ss [id number] - [id number] Orthopedic Left: SYN[employer]ES TRAUMA [id number] / Implanted: 11/08/2017 (Quantity not on file) Trauma Femur AND RECON / Explanted: 11/08/2017 (Quantity not on file) Implants Screw Bone Canltd Thred Lg Hxgnl Socket Ss [id number] - [id number] Orthopedic Left: SYNTHES TRAUMA 208 890 / Implanted: 11/08/2017 (Quantity not on file) Trauma Femur AND RECON / Explanted: 11/08/2017 (Quantity not on file) Implants Procedures Procedure Name Priority Date/Time Associated Diagnosis Comments POC GLUCOSE Routine 01/27/2018 8:30 Results for AM ELEVATOR MECHANIC this procedure are in the results section. SMEAR REVIEW Routine 01/27/2018 4:10 Results for AM ELEVATOR MECHANIC this procedure are in the results section. HC COMPLETE BLD COUNT Routine 01/27/2018 4:10 Results for W/AUTO DIFF AM ELEVATOR MECHANIC this procedure are in the results section. ESTIMATED GFR Routine 01/27/2018 4:00 Results for AM ELEVATOR MECHANIC this procedure are in the results section. BASIC METABOLIC PANEL Routine 01/27/2018 4:00 Results for AM ELEVATOR MECHANIC this procedure are in the results section. ECG 12-LEAD Routine 01/27/2018 3:59 Results for AM ELEVATOR MECHANIC this procedure are in the results section. POC GLUCOSE Routine 01/26/2018 6:00 Results for PM ELEVATOR MECHANIC this procedure are in the results section. ESTIMATED GFR Routine 01/26/2018 6:00 Results for PM ELEVATOR MECHANIC this procedure are in the results section. CREATININE LEVEL Routine 01/26/2018 6:00 Results for PM ELEVATOR MECHANIC this procedure are in the results section. POC GLUCOSE Routine 01/26/2018 2:51 Results for PM ELEVATOR MECHANIC this procedure are in the results section. ECG PRE/POST OP Routine 01/26/2018 1:13 Results for PM ELEVATOR MECHANIC this procedure are in the results section. CV PCI STENT Routine 01/26/2018 1:03 Atherosclerosis of Results for PM ELEVATOR MECHANIC [place] coronary artery this procedure of [place] heart with are in the unstable angina pectoris results (HCC) section. CV SELECTIVE CORONARY Routine 01/26/2018 1:03 Atherosclerosis of Results for ANGIOGRAPHY PM ELEVATOR MECHANIC [place] coronary artery this procedure of [place] heart with are in the unstable angina pectoris results (HCC) section. ACTIVATED CLOTTING Routine 01/26/2018 12:07 Results for TIME PM ELEVATOR MECHANIC this procedure are in the results section. POC PANEL Routine 01/26/2018 9:30 Results for AM ELEVATOR MECHANIC this procedure are in the results section. ESTIMATED GFR Routine 01/26/2018 9:30 Results for AM ELEVATOR MECHANIC this procedure are in the results section. ECG 12-LEAD STAT 01/26/2018 8:44 Results for AM ELEVATOR MECHANIC this procedure are in the results section. POC GLUCOSE Routine 01/26/2018 8:40 Results for AM ELEVATOR MECHANIC this procedure are in the results section. POC GLUCOSE Routine 11/17/2017 11:35 Results for AM CDT this procedure are in the results section. POC GLUCOSE Routine 11/16/2017 9:29 Results for PM CDT this procedure are in the results section. POC GLUCOSE Routine 11/16/2017 5:19 Results for PM CDT this procedure are in the results section. POC GLUCOSE Routine 11/16/2017 12:09 Results for PM CDT this procedure are in the results section. POC GLUCOSE Routine 11/16/2017 7:58 Results for AM CDT this procedure are in the results section. POC GLUCOSE Routine 11/15/2017 8:47 Results for PM CDT this procedure are in the results section. POC GLUCOSE Routine 11/15/2017 5:34 Results for PM CDT this procedure are in the results section. POC GLUCOSE Routine 11/15/2017 12:43 Results for PM CDT this procedure are in the results section. ESTIMATED GFR Routine 11/15/2017 3:26 Results for AM CDT this procedure are in the results section. BASIC METABOLIC PANEL Routine 11/15/2017 3:26 Results for AM CDT this procedure are in the results section. POC GLUCOSE Routine 11/14/2017 9:22 Results for PM CDT this procedure are in the results section. POC GLUCOSE Routine 11/14/2017 6:12 Results for PM CDT this procedure are in the results section. POC GLUCOSE Routine 11/14/2017 4:32 Results for PM CDT this procedure are in the results section. POC GLUCOSE Routine 11/14/2017 12:47 Results for PM CDT this procedure are in the results section. POC GLUCOSE Routine 11/14/2017 8:00 Results for AM CDT this procedure are in the results section. ESTIMATED GFR Routine 11/14/2017 4:00 Results for AM CDT this procedure are in the results section. BASIC METABOLIC PANEL Routine 11/14/2017 4:00 Results for AM CDT this procedure are in the results section. HC COMPLETE BLD COUNT Routine 11/14/2017 4:00 Results for W/AUTO DIFF AM CDT this procedure are in the results section. POC GLUCOSE Routine 11/13/2017 10:26 Results for PM CDT this procedure are in the results section. POC GLUCOSE Routine 11/13/2017 5:20 Results for PM CDT this procedure are in the results section. POC GLUCOSE Routine 11/13/2017 11:54 Results for AM CDT this procedure are in the results section. XR FEMUR 2 VW LEFT Routine 11/13/2017 9:34 Results for AM CDT this procedure are in the results section. POC GLUCOSE Routine 11/13/2017 7:45 Results for AM CDT this procedure are in the results section. HC COMPLETE BLD COUNT Routine 11/13/2017 6:19 Results for W/AUTO DIFF AM CDT this procedure are in the results section. ESTIMATED GFR Routine 11/13/2017 4:00 Results for AM CDT this procedure are in the results section. BASIC METABOLIC PANEL Routine 11/13/2017 4:00 Results for AM CDT this procedure are in the results section. POC GLUCOSE Routine 11/12/2017 9:13 Results for PM CDT this procedure are in the results section. XR WRIST 2 VW LEFT Routine 11/12/2017 7:14 Results for PM CDT this procedure are in the results section. POC GLUCOSE Routine 11/12/2017 4:07 Results for PM CDT this procedure are in the results section. XR ABDOMEN 1 VW Routine 11/12/2017 3:53 Results for PORTABLE PM CDT this procedure are in the results section. POC GLUCOSE Routine 11/12/2017 12:21 Results for PM CDT this procedure are in the results section. POC GLUCOSE Routine 11/12/2017 7:47 Results for AM CDT this procedure are in the results section. XR CHEST 1 VW Timed 11/12/2017 6:11 Results for PORTABLE AM CDT this procedure are in the results section. POC GLUCOSE Routine 11/12/2017 5:13 Results for AM CDT this procedure are in the results section. ESTIMATED GFR Routine 11/12/2017 1:05 Results for AM CDT this procedure are in the results section. PHOSPHORUS LEVEL Routine 11/12/2017 1:05 Results for AM CDT this procedure are in the results section. MAGNESIUM LEVEL Routine 11/12/2017 1:05 Results for AM CDT this procedure are in the results section. IONIZED CALCIUM Routine 11/12/2017 1:05 Results for AM CDT this procedure are in the results section. BASIC METABOLIC PANEL Routine 11/12/2017 1:05 Results for AM CDT this procedure are in the results section. POC GLUCOSE Routine 11/12/2017 12:53 Results for AM CDT this procedure are in the results section. PROTHROMBIN TIME WITH Routine 11/12/2017 12:50 Results for INR AM CDT this procedure are in the results section. HC COMPLETE BLD COUNT Routine 11/12/2017 12:50 Results for W/AUTO DIFF AM CDT this procedure are in the results section. POC GLUCOSE Routine 11/11/2017 8:10 Results for PM CDT this procedure are in the results section. POC GLUCOSE Routine 11/11/2017 4:49 Results for PM CDT this procedure are in the results section. POC GLUCOSE Routine 11/11/2017 12:02 Results for PM CDT this procedure are in the results section. HEMOGLOBIN & STAT 11/11/2017 8:52 Results for HEMATOCRIT AM CDT this procedure are in the results section. POC GLUCOSE Routine 11/11/2017 8:49 Results for AM CDT this procedure are in the results section. POC GLUCOSE Routine 11/11/2017 6:00 Results for AM CDT this procedure are in the results section. XR CHEST 1 VW Timed 11/11/2017 5:50 Results for PORTABLE AM CDT this procedure are in the results section. ESTIMATED GFR Routine 11/11/2017 1:18 Results for AM CDT this procedure are in the results section. PHOSPHORUS LEVEL Routine 11/11/2017 1:18 Results for AM CDT this procedure are in the results section. MAGNESIUM LEVEL Routine 11/11/2017 1:18 Results for AM CDT this procedure are in the results section. IONIZED CALCIUM Routine 11/11/2017 1:18 Results for AM CDT this procedure are in the results section. BASIC METABOLIC PANEL Routine 11/11/2017 1:18 Results for AM CDT this procedure are in the results section. PROTHROMBIN TIME WITH Routine 11/11/2017 1:00 Results for INR AM CDT this procedure are in the results section. HC COMPLETE BLD COUNT Routine 11/11/2017 1:00 Results for W/AUTO DIFF AM CDT this procedure are in the results section. POC GLUCOSE Routine 11/11/2017 12:31 Results for AM CDT this procedure are in the results section. POC GLUCOSE Routine 11/10/2017 8:39 Results for PM CDT this procedure are in the results section. POC GLUCOSE Routine 11/10/2017 5:45 Results for PM CDT this procedure are in the results section. ECG 12-LEAD Routine 11/10/2017 4:16 Results for PM CDT this procedure are in the results section. TROPONIN STAT 11/10/2017 4:14 Results for PM CDT this procedure are in the results section. ESTIMATED GFR STAT 11/10/2017 2:34 Results for PM CDT this procedure are in the results section. MAGNESIUM LEVEL STAT 11/10/2017 2:34 Results for PM CDT this procedure are in the results section. PHOSPHORUS LEVEL STAT 11/10/2017 2:34 Results for PM CDT this procedure are in the results section. HC COMPLETE BLD COUNT STAT 11/10/2017 2:34 Results for W/AUTO DIFF PM CDT this procedure are in the results section. ARTERIAL BLOOD GAS STAT 11/10/2017 2:34 Results for PM CDT this procedure are in the results section. BASIC METABOLIC PANEL STAT 11/10/2017 2:34 Results for PM CDT this procedure are in the results section. POC GLUCOSE Routine 11/10/2017 11:55 Results for AM CDT this procedure are in the results section. POC GLUCOSE Routine 11/10/2017 8:39 Results for AM CDT this procedure are in the results section. XR CHEST 1 VW Routine 11/10/2017 6:55 Results for PORTABLE AM CDT this procedure are in the results section. POC GLUCOSE Routine 11/10/2017 4:28 Results for AM CDT this procedure are in the results section. ESTIMATED GFR Routine 11/10/2017 3:17 Results for AM CDT this procedure are in the results section. MAGNESIUM LEVEL Routine 11/10/2017 3:17 Results for AM CDT this procedure are in the results section. PHOSPHORUS LEVEL Routine 11/10/2017 3:17 Results for AM CDT this procedure are in the results section. BASIC METABOLIC PANEL Routine 11/10/2017 3:17 Results for AM CDT this procedure are in the results section. IONIZED CALCIUM, Routine 11/10/2017 3:00 Results for ARTERIAL AM CDT this procedure are in the results section. ARTERIAL BLOOD GAS Routine 11/10/2017 3:00 Results for AM CDT this procedure are in the results section. FIBRINOGEN Routine 11/10/2017 3:00 Results for AM CDT this procedure are in the results section. PARTIAL Routine 11/10/2017 3:00 Results for THROMBOPLASTIN TIME AM CDT this procedure (PTT) are in the results section. PROTHROMBIN TIME WITH Routine 11/10/2017 3:00 Results for INR AM CDT this procedure are in the results section. HC COMPLETE BLD COUNT Routine 11/10/2017 3:00 Results for W/AUTO DIFF AM CDT this procedure are in the results section. POC GLUCOSE Routine 11/10/2017 12:19 Results for AM CDT this procedure are in the results section. POC GLUCOSE Routine 11/09/2017 9:04 Results for PM CDT this procedure are in the results section. ESTIMATED GFR STAT 11/09/2017 7:15 Results for PM CDT this procedure are in the results section. BASIC METABOLIC PANEL STAT 11/09/2017 7:15 Results for PM CDT this procedure are in the results section. POC GLUCOSE Routine 11/09/2017 5:12 Results for PM CDT this procedure are in the results section. XR CHEST 1 VW STAT 11/09/2017 2:35 Results for PORTABLE PM CDT this procedure are in the results section. XR ABDOMEN 1 VW STAT 11/09/2017 2:34 Results for PORTABLE PM CDT this procedure are in the results section. POC GLUCOSE Routine 11/09/2017 1:37 Results for PM CDT this procedure are in the results section. POC GLUCOSE Routine 11/09/2017 12:08 Results for PM CDT this procedure are in the results section. ESTIMATED GFR STAT 11/09/2017 11:09 Results for AM CDT this procedure are in the results section. BASIC METABOLIC PANEL STAT 11/09/2017 11:09 Results for AM CDT this procedure are in the results section. POC GLUCOSE Routine 11/09/2017 10:48 Results for AM CDT this procedure are in the results section. POC GLUCOSE Routine 11/09/2017 9:15 Results for AM CDT this procedure are in the results section. POC GLUCOSE Routine 11/09/2017 8:19 Results for AM CDT this procedure are in the results section. POC GLUCOSE Routine 11/09/2017 7:05 Results for AM CDT this procedure are in the results section. POC GLUCOSE Routine 11/09/2017 5:54 Results for AM CDT this procedure are in the results section. ESTIMATED GFR Routine 11/09/2017 5:39 Results for AM CDT this procedure are in the results section. BASIC METABOLIC PANEL Routine 11/09/2017 5:39 Results for AM CDT this procedure are in the results section. POC GLUCOSE Routine 11/09/2017 4:03 Results for AM CDT this procedure are in the results section. POC GLUCOSE Routine 11/09/2017 3:02 Results for AM CDT this procedure are in the results section. POC GLUCOSE Routine 11/09/2017 1:45 Results for AM CDT this procedure are in the results section. IONIZED CALCIUM, Routine 11/09/2017 1:42 Results for ARTERIAL AM CDT this procedure are in the results section. ARTERIAL BLOOD GAS Routine 11/09/2017 1:42 Results for AM CDT this procedure are in the results section. PARTIAL Routine 11/09/2017 1:42 Results for THROMBOPLASTIN TIME AM CDT this procedure (PTT) are in the results section. PROTHROMBIN TIME WITH Routine 11/09/2017 1:42 Results for INR AM CDT this procedure are in the results section. HC COMPLETE BLD COUNT Routine 11/09/2017 1:42 Results for W/AUTO DIFF AM CDT this procedure are in the results section. ESTIMATED GFR Routine 11/09/2017 1:03 Results for AM CDT this procedure are in the results section. PHOSPHORUS LEVEL Routine 11/09/2017 1:03 Results for AM CDT this procedure are in the results section. MAGNESIUM LEVEL Routine 11/09/2017 1:03 Results for AM CDT this procedure are in the results section. BASIC METABOLIC PANEL Routine 11/09/2017 1:03 Results for AM CDT this procedure are in the results section. POC GLUCOSE Routine 11/09/2017 12:03 Results for AM CDT this procedure are in the results section. POC GLUCOSE Routine 11/08/2017 10:45 Results for PM CDT this procedure are in the results section. POC GLUCOSE Routine 11/08/2017 9:56 Results for PM CDT this procedure are in the results section. POC GLUCOSE Routine 11/08/2017 8:54 Results for PM CDT this procedure are in the results section. POC GLUCOSE Routine 11/08/2017 7:51 Results for PM CDT this procedure are in the results section. ESTIMATED GFR STAT 11/08/2017 7:25 Results for PM CDT this procedure are in the results section. BASIC METABOLIC PANEL STAT 11/08/2017 7:25 Results for PM CDT this procedure are in the results section. ARTERIAL BLOOD GAS STAT 11/08/2017 7:25 Results for PM CDT this procedure are in the results section. POC GLUCOSE Routine 11/08/2017 6:55 Results for PM CDT this procedure are in the results section. POC GLUCOSE Routine 11/08/2017 5:40 Results for PM CDT this procedure are in the results section. ESTIMATED GFR STAT 11/08/2017 3:58 Results for PM CDT this procedure are in the results section. BASIC METABOLIC PANEL STAT 11/08/2017 3:58 Results for PM CDT this procedure are in the results section. CV ECHO 2D FOLLOW UP Routine 11/08/2017 3:56 Results for OR LIMITED STUDY PM CDT this procedure are in the results section. US DUPLEX VENOUS STAT 11/08/2017 3:54 Results for LOWER EXTREMITY PM CDT this procedure BILATERAL are in the results section. XR FEMUR 2 VW LEFT Routine 11/08/2017 3:28 Results for PM CDT this procedure are in the results section. URINALYSIS SCREEN AND Routine 11/08/2017 3:25 Results for MICROSCOPY, WITH PM CDT this procedure REFLEX TO CULTURE are in the results section. GRAM STAIN Routine 11/08/2017 3:25 Results for PM CDT this procedure are in the results section. URINE CULTURE Routine 11/08/2017 3:25 Results for PM CDT this procedure are in the results section. ARTERIAL BLOOD GAS STAT 11/08/2017 3:00 Results for PM CDT this procedure are in the results section. XR CHEST 1 VW STAT 11/08/2017 1:14 Results for PORTABLE PM CDT this procedure are in the results section. ESTIMATED GFR STAT 11/08/2017 12:52 Results for PM CDT this procedure are in the results section. PROTHROMBIN TIME WITH STAT 11/08/2017 12:52 Results for INR PM CDT this procedure are in the results section. PHOSPHORUS LEVEL STAT 11/08/2017 12:52 Results for PM CDT this procedure are in the results section. MAGNESIUM LEVEL STAT 11/08/2017 12:52 Results for PM CDT this procedure are in the results section. LDH STAT 11/08/2017 12:52 Results for PM CDT this procedure are in the results section. IONIZED CALCIUM STAT 11/08/2017 12:52 Results for PM CDT this procedure are in the results section. LACTIC ACID LEVEL STAT 11/08/2017 12:52 Results for PM CDT this procedure are in the results section. HEPATIC FUNCTION STAT 11/08/2017 12:52 Results for PANEL PM CDT this procedure are in the results section. HC COMPLETE BLD COUNT STAT 11/08/2017 12:52 Results for W/AUTO DIFF PM CDT this procedure are in the results section. BASIC METABOLIC PANEL STAT 11/08/2017 12:52 Results for PM CDT this procedure are in the results section. ARTERIAL BLOOD GAS STAT 11/08/2017 12:51 Results for PM CDT this procedure are in the results section. XR CHEST 1 VW STAT 11/08/2017 12:24 Results for PORTABLE PM CDT this procedure are in the results section. OR FL > 1 HOUR Routine 11/08/2017 11:43 Results for AM CDT this procedure are in the results section. OR FL < 1 HOUR Routine 11/08/2017 11:40 Results for AM CDT this procedure are in the results section. AFB STAIN Timed 11/08/2017 11:25 Results for AM CDT this procedure are in the results section. GRAM STAIN Timed 11/08/2017 11:25 Results for AM CDT this procedure are in the results section. FUNGUS SMEAR Timed 11/08/2017 11:25 Results for AM CDT this procedure are in the results section. AFB CULTURE Timed 11/08/2017 11:25 Closed 2-part Results for AM CDT intertrochanteric this procedure fracture of left femur, are in the initial encounter (HCC) results Broken wrist, left, section. closed, initial encounter AEROBIC CULTURE Timed 11/08/2017 11:25 Closed 2-part Results for AM CDT intertrochanteric this procedure fracture of left femur, are in the initial encounter results Broken wrist, left, section. closed, initial encounter FUNGUS CULTURE Timed 11/08/2017 11:25 Closed 2-part Results for AM CDT intertrochanteric this procedure fracture of left femur, are in the initial encounter ([facility]) results Broken wrist, left, section. closed, initial encounter ANAEROBIC CULTURE Timed 11/08/2017 11:25 Closed 2-part Results for AM CDT intertrochanteric this procedure fracture of left femur, are in the initial encounter results Broken wrist, left, section. closed, initial encounter GLUCOSE LEVEL, Routine 11/08/2017 10:45 Results for SYRINGE AM CDT this procedure are in the results section. IONIZED CALCIUM, Routine 11/08/2017 10:45 Results for ARTERIAL AM CDT this procedure are in the results section. HEMOGLOBIN, SYRINGE Routine 11/08/2017 10:45 Results for AM CDT this procedure are in the results section. SODIUM LEVEL, SYRINGE Routine 11/08/2017 10:45 Results for AM CDT this procedure are in the results section. POTASSIUM, SYRINGE Routine 11/08/2017 10:45 Results for AM CDT this procedure are in the results section. ARTERIAL BLOOD GAS, Routine 11/08/2017 10:45 Results for CORRECTED AM CDT this procedure are in the results section. TRANSFUSE RED BLOOD Routine 11/08/2017 10:30 CELLS AM CDT TRANSFUSE PLATELETS Routine 11/08/2017 10:10 AM CDT AFB STAIN Timed 11/08/2017 10:00 Results for AM CDT this procedure are in the results section. GRAM STAIN Timed 11/08/2017 10:00 Results for AM CDT this procedure are in the results section. AFB CULTURE Timed 11/08/2017 10:00 Closed 2-part Results for AM CDT intertrochanteric this procedure fracture of left femur, are in the initial encounter (HCC) results Broken wrist, left, section. closed, initial encounter AEROBIC CULTURE Timed 11/08/2017 10:00 Closed 2-part Results for AM CDT intertrochanteric this procedure fracture of left femur, are in the initial encounter results Broken wrist, left, section. closed, initial encounter ANAEROBIC CULTURE Timed 11/08/2017 10:00 Closed 2-part Results for AM CDT intertrochanteric this procedure fracture of left femur, are in the initial encounter results Broken wrist, left, section. closed, initial encounter IONIZED CALCIUM, STAT 11/08/2017 9:50 Results for ARTERIAL AM CDT this procedure are in the results section. POTASSIUM, SYRINGE STAT 11/08/2017 9:50 Results for AM CDT this procedure are in the results section. GLUCOSE LEVEL, STAT 11/08/2017 9:50 Results for SYRINGE AM CDT this procedure are in the results section. HEMOGLOBIN, SYRINGE STAT 11/08/2017 9:50 Results for AM CDT this procedure are in the results section. SODIUM LEVEL, SYRINGE STAT 11/08/2017 9:50 Results for AM CDT this procedure are in the results section. ARTERIAL BLOOD GAS, STAT 11/08/2017 9:50 Results for CORRECTED AM CDT this procedure are in the results section. [place] AN ELECTIVE Routine 11/08/2017 9:48 ENDOTRACHEAL AIRWAY AM CDT Procedure Note - Patel Becker CRNA - 11/08/2017 9:48 AM CDT Airway Date/Time: 11/08/2017 8:27 AM Performed by: PATEL BECKER Authorized by: NEIL LEMUS Location: OR Urgency: Elective Difficult Airway: No Resident/SERVICE ASSISTANT/AA: PATEL BECKER Performed by: resident/SERVICE ASSISTANT/AA Preoxygenated with 100% O2: Yes C-spine Precautions Maintained Throughout: No Mask Ventilation: Assisted mask Final Airway Type: Endotracheal airway Final Endotracheal Airway: ETT Cuffed: Yes Technique Used: Direct laryngoscopy Devices/Methods Used in Placement: Intubating stylet Insertion Site: Oral Blade Type: Lal Laryngoscope Blade/Videolaryngoscope Blade Size: 2 ETT Size (mm): 7.0 Cuff at minimum occlusion pressure: Yes Measured from: Lips ETT to Lips (cm): 21 Placement Verified by: CO2 detection, direct visualization and equal breath sounds Laryngoscopic view: Grade IIa - partial view of glottis Rapid Sequence Induction (RSI): No Modified RSI: No Number of Attempts at Approach: 1 Preoxygenated for 5 minutes. Smooth and easy intubation Sat dropped to 50s during DL and took whole min back up to 100% with ambu bag 100% oxygen TRANSFUSE RED BLOOD CELLS Routine 11/08/2017 9:46 AM CDT CENTRAL LINE Routine 11/08/2017 8:57 AM CDT Procedure Note - Patel Becker CRNA - 11/08/2017 8:57 AM CDT Central line Performed by: NEIL LEMUS Authorized by: NEIL LEMUS Patient Location: OR Staff: Anesthesiologist: NEIL LEMUS Performed by: Anesthesiologist Preprocedure:patient identified, IV checked, site and side verified, risks and benefits discussed, procedure verified, surgical consent complete, patient position confirmed, monitors and equipment checked and pre-op evaluation complete MSBT: antiseptic used during central venous catheter insertion, all elements of maximal sterile barrier technique followed, hand hygiene performed prior to central venous catheter insertion, cap/gown used by other personnel during central venous catheter insertion, solutions labeled and all ports not used during insertion clamped Indications: Indications: Vascular access Anesthesia: Anesthesia: General Procedure details: Patient position: Trendelenburg Catheter Type: Double lumen Catheter Size: 8 Fr Catheter Site: internal jugular vein Catheter site laterality: Right Pre-procedure: Landmarks identified Ultrasound guidance used: Yes Ultrasound image saved: No Number of attempts: 1 Successful placement: Yes Guidewire removal: Guidewire removal is confirmed Guidewire removal witnessed by: SMITHA WILSON Post-procedure: Post-procedure: line sutured, sterile dressing applied per protocol and ports flushed with saline Post-procedure: Sterile caps on all hubs and blood cleaned with CHG Assessment: Blood return through all ports and free fluid flow Patient tolerance: Patient tolerated the procedure well with no immediate complications ARTERIAL LINE Routine 11/08/2017 8:57 AM CDT Procedure Note - Patel Becker CRNA - 11/08/2017 8:57 AM CDT Arterial line Performed by: NEIL LEMUS Authorized by: NEIL LEMUS Patient Location: OR Staff: Anesthesiologist: NEIL LEMUS Performed by: Anesthesiologist Pre-procedure: patient identified, IV checked, site and side verified, risks and benefits discussed, procedure verified, surgical consent complete, patient position confirmed, monitors and equipment checked and pre-op evaluation complete MSBT: antiseptic used, all elements of maximal sterile barrier technique followed, hand hygiene performed, cap/gown used by other personnel and solutions labeled Indications: Indications: multiple ABGs and hemodynamic monitoring Anesthesia: Anesthesia: General Procedure Details: Arterial Line placement: Placed post induction Line placement site: Radial Line placement side: Right Arterial line gauge: 20 G Number of attempts: 2 Ultrasound guidance used: Yes Post-procedure: Post-procedure: Sterile dressing applied Patient tolerance: Patient tolerated the procedure well with no immediate complications ORIF, FRACTURE, RADIUS OR 11/08/2017 8:00 AM CDT Closed 2-part intertrochanteric ULNA fracture of left femur, initial encounter Broken wrist, left, closed, initial encounter Case Notes LARGE C-ARMALFRED, @1302 VIA ACTIVE FAX ADDED TO PROC/CODES, @1445 EDUARDO R/S FROM 10/31 TO 11/01-10/30/17TW, @1413 EDUARDO R/S FROM 11/01 TO 11/08-TW Special Needs EST 1.5HRS, LARGE C-ARM, ALFRED, SYNTHES BLADE PLATE, BIOMET DISTAL RADIUS PLATES ORIF, FRACTURE, FEMUR, 11/08/2017 8:00 AM CDT Closed 2-part SHAFT, USING INTRAMEDULLARY intertrochanteric fracture of JACOB left femur, initial encounter Broken wrist, left, closed, initial encounter Case Notes LARGE C-ARM, AQUAMANTYS, @1302 VIA ACTIVE FAX ADDED TO PROC/CODES, @1440 EDUARDO R/S FROM 10/31 TO 11/01-10/30/17TW, @1413 EDUARDO R/S FROM 11/01 TO 11/08-TW Special Needs EST 1.5HRS, LARGE C-ARM, AQUAMANTYS, SYNTHES BLADE PLATE, BIOMET DISTAL RADIUS PLATES POC PANEL 4 Routine 11/08/2017 7:27 Results for this AM CDT procedure are in the results section. POC GLUCOSE Routine 11/08/2017 6:35 Results for this AM CDT procedure are in the results section. PREPARE PLATELETS Routine 11/08/2017 4:30 Results for this AM CDT procedure are in the results section. PREPARE RBC Routine 11/08/2017 4:30 Results for this AM CDT procedure are in the results section. TYPE AND SCREEN Routine 11/08/2017 4:30 Results for this AM CDT procedure are in the results section. PROTHROMBIN TIME WITH Routine 11/08/2017 4:30 Results for this INR AM CDT procedure are in the results section. HC COMPLETE BLD COUNT Routine 11/08/2017 4:30 Results for this W/AUTO DIFF AM CDT procedure are in the results section. ESTIMATED GFR Routine 11/08/2017 4:00 Results for this AM CDT procedure are in the results section. PHOSPHORUS LEVEL Routine 11/08/2017 4:00 Results for this AM CDT procedure are in the results section. MAGNESIUM LEVEL Routine 11/08/2017 4:00 Results for this AM CDT procedure are in the results section. COMPREHENSIVE METABOLIC Routine 11/08/2017 4:00 Results for this PANEL AM CDT procedure are in the results section. POC GLUCOSE Routine 11/07/2017 9:54 Results for this PM CDT procedure are in the results section. XR WRIST 2 VW LEFT STAT 11/07/2017 9:38 Results for this PM CDT procedure are in the results section. POC GLUCOSE Routine 11/07/2017 6:14 Results for this PM CDT procedure are in the results section. POC GLUCOSE Routine 11/07/2017 11:33 Results for this AM CDT procedure are in the results section. POC GLUCOSE Routine 11/07/2017 7:42 Results for this AM CDT procedure are in the results section. ESTIMATED GFR Routine 11/07/2017 4:00 Results for this AM CDT procedure are in the results section. HC COMPLETE BLD COUNT Routine 11/07/2017 4:00 Results for this W/AUTO DIFF AM CDT procedure are in the results section. BASIC METABOLIC PANEL Routine 11/07/2017 4:00 Results for this AM CDT procedure are in the results section. POC GLUCOSE Routine 11/06/2017 8:24 Results for this PM CDT procedure are in the results section. POC GLUCOSE Routine 11/06/2017 4:11 Results for this PM CDT procedure are in the results section. POC GLUCOSE Routine 11/06/2017 11:15 Results for this AM CDT procedure are in the results section. XR ABDOMEN 1 VW Routine 11/06/2017 10:36 Results for this PORTABLE AM CDT procedure are in the results section. POC GLUCOSE Routine 11/06/2017 7:40 Results for this AM CDT procedure are in the results section. POC GLUCOSE Routine 11/05/2017 11:03 Results for this PM CDT procedure are in the results section. POC GLUCOSE Routine 11/05/2017 8:20 Results for this PM CDT procedure are in the results section. POC GLUCOSE Routine 11/05/2017 5:00 Results for this PM CDT procedure are in the results section. XR ABDOMEN 1 VW STAT 11/05/2017 12:19 Results for this PORTABLE PM CDT procedure are in the results section. XR CHEST 1 VW PORTABLE STAT 11/05/2017 12:18 Results for this PM CDT procedure are in the results section. POC GLUCOSE Routine 11/05/2017 11:18 Results for this AM CDT procedure are in the results section. URINALYSIS SCREEN AND Routine 11/05/2017 10:56 Results for this MICROSCOPY, WITH REFLEX AM CDT procedure are in TO CULTURE the results section. GRAM STAIN Routine 11/05/2017 10:56 Results for this AM CDT procedure are in the results section. URINE CULTURE Routine 11/05/2017 10:56 Results for this AM CDT procedure are in the results section. POC GLUCOSE Routine 11/05/2017 7:45 Results for this AM CDT procedure are in the results section. MANUAL DIFFERENTIAL Routine 11/05/2017 4:15 Results for this AM CDT procedure are in the results section. ESTIMATED GFR Routine 11/05/2017 4:15 Results for this AM CDT procedure are in the results section. CBC WITH PLATELET AND Routine 11/05/2017 4:15 Results for this DIFFERENTIAL AM CDT procedure are in the results section. PHOSPHORUS LEVEL Routine 11/05/2017 4:15 Results for this AM CDT procedure are in the results section. MAGNESIUM LEVEL Routine 11/05/2017 4:15 Results for this AM CDT procedure are in the results section. BASIC METABOLIC PANEL Routine 11/05/2017 4:15 Results for this AM CDT procedure are in the results section. POC GLUCOSE Routine 11/04/2017 8:20 Results for this PM CDT procedure are in the results section. POC GLUCOSE Routine 11/04/2017 4:34 Results for this PM CDT procedure are in the results section. POC GLUCOSE Routine 11/04/2017 11:57 Results for this AM CDT procedure are in the results section. POC GLUCOSE Routine 11/04/2017 7:41 Results for this AM CDT procedure are in the results section. ECG 12-LEAD Routine 11/04/2017 5:46 Results for this AM CDT procedure are in the results section. MANUAL DIFFERENTIAL Routine 11/04/2017 5:35 Results for this AM CDT procedure are in the results section. ESTIMATED GFR Routine 11/04/2017 5:35 Results for this AM CDT procedure are in the results section. IONIZED CALCIUM Routine 11/04/2017 5:35 Results for this AM CDT procedure are in the results section. PHOSPHORUS LEVEL Routine 11/04/2017 5:35 Results for this AM CDT procedure are in the results section. MAGNESIUM LEVEL Routine 11/04/2017 5:35 Results for this AM CDT procedure are in the results section. COMPREHENSIVE METABOLIC Routine 11/04/2017 5:35 Results for this PANEL AM CDT procedure are in the results section. CBC WITH PLATELET AND Routine 11/04/2017 5:35 Results for this DIFFERENTIAL AM CDT procedure are in the results section. TROPONIN Routine 11/04/2017 5:35 Results for this AM CDT procedure are in the results section. POC GLUCOSE Routine 11/03/2017 8:32 Results for this PM CDT procedure are in the results section. POC GLUCOSE Routine 11/03/2017 4:34 Results for this PM CDT procedure are in the results section. ECG PRE/POST OP Routine 11/03/2017 3:32 Results for this PM CDT procedure are in the results section. POC GLUCOSE Routine 11/03/2017 12:01 Results for this PM CDT procedure are in the results section. CONSULT CARDIAC REHAB Routine 11/03/2017 11:44 PHASE 1 AM CDT CV PCI PERCUTANEOUS Routine 11/03/2017 11:14 Results for this CARDIAC ANGIOPLASTY AM CDT procedure are in the results section. CV LEFT HEART CATH Routine 11/03/2017 11:14 Results for this AM CDT procedure are in the results section. ACTIVATED CLOTTING TIME Routine 11/03/2017 10:51 Results for this AM CDT procedure are in the results section. POC GLUCOSE Routine 11/03/2017 7:37 Results for this AM CDT procedure are in the results section. HC COMPLETE BLD COUNT Routine 11/03/2017 5:00 Results for this W/AUTO DIFF AM CDT procedure are in the results section. ESTIMATED GFR Routine 11/03/2017 4:00 Results for this AM CDT procedure are in the results section. IONIZED CALCIUM Routine 11/03/2017 4:00 Results for this AM CDT procedure are in the results section. PHOSPHORUS LEVEL Routine 11/03/2017 4:00 Results for this AM CDT procedure are in the results section. MAGNESIUM LEVEL Routine 11/03/2017 4:00 Results for this AM CDT procedure are in the results section. COMPREHENSIVE METABOLIC Routine 11/03/2017 4:00 Results for this PANEL AM CDT procedure are in the results section. TROPONIN Routine 11/03/2017 4:00 Results for this AM CDT procedure are in the results section. TROPONIN Timed 11/02/2017 11:15 Results for this PM CDT procedure are in the results section. IONIZED CALCIUM Timed 11/02/2017 11:15 Results for this PM CDT procedure are in the results section. HEMOGLOBIN & HEMATOCRIT Timed 11/02/2017 11:15 Results for this PM CDT procedure are in the results section. POC GLUCOSE Routine 11/02/2017 7:34 Results for this PM CDT procedure are in the results section. POC GLUCOSE Routine 11/02/2017 4:22 Results for this PM CDT procedure are in the results section. PROTHROMBIN TIME WITH Timed 11/02/2017 2:30 Results for this INR PM CDT procedure are in the results section. PARTIAL THROMBOPLASTIN Timed 11/02/2017 2:30 Results for this TIME (PTT) PM CDT procedure are in the results section. HEMOGLOBIN & HEMATOCRIT Timed 11/02/2017 2:30 Results for this PM CDT procedure are in the results section. TROPONIN Timed 11/02/2017 2:00 Results for this PM CDT procedure are in the results section. POC GLUCOSE Routine 11/02/2017 11:22 Results for this AM CDT procedure are in the results section. ECG 12-LEAD STAT 11/02/2017 11:21 Results for this AM CDT procedure are in the results section. HC COMPLETE BLD COUNT Routine 11/02/2017 9:40 Results for this W/AUTO DIFF AM CDT procedure are in the results section. POC GLUCOSE Routine 11/02/2017 7:30 Results for this AM CDT procedure are in the results section. POC GLUCOSE Routine 11/02/2017 6:08 Results for this AM CDT procedure are in the results section. ESTIMATED GFR Routine 11/02/2017 4:00 Results for this AM CDT procedure are in the results section. IONIZED CALCIUM Routine 11/02/2017 4:00 Results for this AM CDT procedure are in the results section. PHOSPHORUS LEVEL Routine 11/02/2017 4:00 Results for this AM CDT procedure are in the results section. MAGNESIUM LEVEL Routine 11/02/2017 4:00 Results for this AM CDT procedure are in the results section. COMPREHENSIVE METABOLIC Routine 11/02/2017 4:00 Results for this PANEL AM CDT procedure are in the results section. TROPONIN Routine 11/02/2017 4:00 Results for this AM CDT procedure are in the results section. POC GLUCOSE Routine 11/02/2017 1:57 Results for this AM CDT procedure are in the results section. HEMOGLOBIN & HEMATOCRIT Timed 11/01/2017 9:40 Results for this PM CDT procedure are in the results section. POC GLUCOSE Routine 11/01/2017 8:43 Results for this PM CDT procedure are in the results section. POC GLUCOSE Routine 11/01/2017 4:02 Results for this PM CDT procedure are in the results section. POC GLUCOSE Routine 11/01/2017 11:26 Results for this AM CDT procedure are in the results section. PARTIAL THROMBOPLASTIN Routine 11/01/2017 10:13 Results for this TIME (PTT) AM CDT procedure are in the results section. HEMOGLOBIN & HEMATOCRIT Routine 11/01/2017 10:04 Results for this AM CDT procedure are in the results section. PREPARE RBC Timed 11/01/2017 10:02 Results for this AM CDT procedure are in the results section. PREPARE RBC Timed 11/01/2017 10:02 Results for this AM CDT procedure are in the results section. TYPE AND SCREEN Timed 11/01/2017 10:02 Results for this AM CDT procedure are in the results section. POC GLUCOSE Routine 11/01/2017 7:44 Results for this AM CDT procedure are in the results section. POC GLUCOSE Routine 11/01/2017 4:32 Results for this AM CDT procedure are in the results section. SMEAR REVIEW Routine 11/01/2017 4:30 Results for this AM CDT procedure are in the results section. HC COMPLETE BLD COUNT Routine 11/01/2017 4:30 Results for this W/AUTO DIFF AM CDT procedure are in the results section. ESTIMATED GFR Routine 11/01/2017 4:00 Results for this AM CDT procedure are in the results section. BASIC METABOLIC PANEL Routine 11/01/2017 4:00 Results for this AM CDT procedure are in the results section. POC GLUCOSE Routine 11/01/2017 2:12 Results for this AM CDT procedure are in the results section. PARTIAL THROMBOPLASTIN Routine 10/31/2017 11:00 Results for this TIME (PTT) PM CDT procedure are in the results section. POC GLUCOSE Routine 10/31/2017 9:51 Results for this PM CDT procedure are in the results section. POC GLUCOSE Routine 10/31/2017 8:06 Results for this PM CDT procedure are in the results section. POC GLUCOSE Routine 10/31/2017 5:24 Results for this PM CDT procedure are in the results section. PARTIAL THROMBOPLASTIN Routine 10/31/2017 3:45 Results for this TIME (PTT) PM CDT procedure are in the results section. POC GLUCOSE Routine 10/31/2017 3:32 Results for this PM CDT procedure are in the results section. POC GLUCOSE Routine 10/31/2017 1:06 Results for this PM CDT procedure are in the results section. POC GLUCOSE Routine 10/31/2017 11:45 Results for this AM CDT procedure are in the results section. EEG CONTINUOUS WITH Routine 10/31/2017 9:41 Results for this VIDEO REDUCED SERVICE AM CDT procedure are in the results section. PARTIAL THROMBOPLASTIN Routine 10/31/2017 8:30 Results for this TIME (PTT) AM CDT procedure are in the results section. POC GLUCOSE Routine 10/31/2017 8:24 Results for this AM CDT procedure are in the results section. POC GLUCOSE Routine 10/31/2017 4:19 Results for this AM CDT procedure are in the results section. POC GLUCOSE Routine 10/31/2017 2:42 Results for this AM CDT procedure are in the results section. ZZESTIMATED GFR Routine 10/31/2017 1:15 Results for this AM CDT procedure are in the results section. BASIC METABOLIC PANEL Routine 10/31/2017 1:15 Results for this AM CDT procedure are in the results section. PHOSPHORUS LEVEL Routine 10/31/2017 1:15 Results for this AM CDT procedure are in the results section. MAGNESIUM LEVEL Routine 10/31/2017 1:15 Results for this AM CDT procedure are in the results section. TROPONIN Routine 10/31/2017 1:15 Results for this AM CDT procedure are in the results section. CBC HEMOGRAM Routine 10/31/2017 12:40 Results for this AM CDT procedure are in the results section. PARTIAL THROMBOPLASTIN Routine 10/31/2017 12:40 Results for this TIME (PTT) AM CDT procedure are in the results section. VITAMIN D 25 HYDROXY Routine 10/31/2017 12:40 Results for this LEVEL AM CDT procedure are in the results section. POC GLUCOSE Routine 10/31/2017 12:27 Results for this AM CDT procedure are in the results section. EEG CONTINUOUS WITH Routine 10/31/2017 12:19 Results for this VIDEO REDUCED SERVICE AM CDT procedure are in the results section. POC GLUCOSE Routine 10/30/2017 10:32 Results for this PM CDT procedure are in the results section. POC GLUCOSE Routine 10/30/2017 8:32 Results for this PM CDT procedure are in the results section. TROPONIN STAT 10/30/2017 6:28 Results for this PM CDT procedure are in the results section. POC GLUCOSE Routine 10/30/2017 6:16 Results for this PM CDT procedure are in the results section. PARTIAL THROMBOPLASTIN Routine 10/30/2017 4:30 Results for this TIME (PTT) PM CDT procedure are in the results section. POC GLUCOSE Routine 10/30/2017 4:16 Results for this PM CDT procedure are in the results section. POC GLUCOSE Routine 10/30/2017 2:22 Results for this PM CDT procedure are in the results section. EEG AWAKE/ASLEEP LESS Routine 10/30/2017 1:09 Results for this THAN 41 MIN PM CDT procedure are in the results section. HEMOGLOBIN & HEMATOCRIT STAT 10/30/2017 12:26 Results for this PM CDT procedure are in the results section. POC GLUCOSE Routine 10/30/2017 12:11 Results for this PM CDT procedure are in the results section. XR CHEST 1 VW PORTABLE STAT 10/30/2017 10:53 Results for this AM CDT procedure are in the results section. POC GLUCOSE Routine 10/30/2017 10:12 Results for this AM CDT procedure are in the results section. BLOOD CULTURE, AEROBIC Routine 10/30/2017 9:15 Results for this & ANAEROBIC AM CDT procedure are in the results section. POC GLUCOSE Routine 10/30/2017 8:53 Results for this AM CDT procedure are in the results section. PARTIAL THROMBOPLASTIN Routine 10/30/2017 8:50 Results for this TIME (PTT) AM CDT procedure are in the results section. POC GLUCOSE Routine 10/30/2017 7:35 Results for this AM CDT procedure are in the results section. POC GLUCOSE Routine 10/30/2017 5:23 Results for this AM CDT procedure are in the results section. HC COMPLETE BLD COUNT Routine 10/30/2017 5:20 Results for this W/AUTO DIFF AM CDT procedure are in the results section. POC GLUCOSE Routine 10/30/2017 4:33 Results for this AM CDT procedure are in the results section. ZZESTIMATED GFR Routine 10/30/2017 4:00 Results for this AM CDT procedure are in the results section. TROPONIN Routine 10/30/2017 4:00 Results for this AM CDT procedure are in the results section. IONIZED CALCIUM Routine 10/30/2017 4:00 Results for this AM CDT procedure are in the results section. PHOSPHORUS LEVEL Routine 10/30/2017 4:00 Results for this AM CDT procedure are in the results section. MAGNESIUM LEVEL Routine 10/30/2017 4:00 Results for this AM CDT procedure are in the results section. COMPREHENSIVE METABOLIC Routine 10/30/2017 4:00 Results for this PANEL AM CDT procedure are in the results section. POC GLUCOSE Routine 10/30/2017 3:34 Results for this AM CDT procedure are in the results section. POC GLUCOSE Routine 10/30/2017 3:29 Results for this AM CDT procedure are in the results section. POC GLUCOSE Routine 10/30/2017 2:28 Results for this AM CDT procedure are in the results section. POC GLUCOSE Routine 10/30/2017 12:36 Results for this AM CDT procedure are in the results section. TROPONIN STAT 10/29/2017 11:54 Results for this PM CDT procedure are in the results section. PARTIAL THROMBOPLASTIN STAT 10/29/2017 11:50 Results for this TIME (PTT) PM CDT procedure are in the results section. BLOOD CULTURE, AEROBIC Routine 10/29/2017 11:50 Results for this & ANAEROBIC PM CDT procedure are in the results section. POC GLUCOSE Routine 10/29/2017 11:27 Results for this PM CDT procedure are in the results section. POC GLUCOSE Routine 10/29/2017 10:26 Results for this PM CDT procedure are in the results section. POC GLUCOSE Routine 10/29/2017 9:30 Results for this PM CDT procedure are in the results section. TROPONIN Timed 10/29/2017 9:00 Results for this PM CDT procedure are in the results section. POC GLUCOSE Routine 10/29/2017 8:31 Results for this PM CDT procedure are in the results section. CT HEAD WO CONTRAST STAT 10/29/2017 8:13 Results for this PM CDT procedure are in the results section. TROPONIN STAT 10/29/2017 7:30 Results for this PM CDT procedure are in the results section. POC GLUCOSE Routine 10/29/2017 7:14 Results for this PM CDT procedure are in the results section. BLOOD CULTURE, AEROBIC Routine 10/29/2017 7:03 Results for this & ANAEROBIC PM CDT procedure are in the results section. ZZESTIMATED GFR Timed 10/29/2017 6:00 Results for this PM CDT procedure are in the results section. IONIZED CALCIUM Timed 10/29/2017 6:00 Results for this PM CDT procedure are in the results section. PHOSPHORUS LEVEL Timed 10/29/2017 6:00 Results for this PM CDT procedure are in the results section. MAGNESIUM LEVEL Timed 10/29/2017 6:00 Results for this PM CDT procedure are in the results section. LACTIC ACID LEVEL Timed 10/29/2017 6:00 Results for this PM CDT procedure are in the results section. COMPREHENSIVE METABOLIC Timed 10/29/2017 6:00 Results for this PANEL PM CDT procedure are in the results section. HC COMPLETE BLD COUNT Timed 10/29/2017 6:00 Results for this W/AUTO DIFF PM CDT procedure are in the results section. POC GLUCOSE Routine 10/29/2017 5:36 Results for this PM CDT procedure are in the results section. ECHOCARDIOGRAM 2D STAT 10/29/2017 4:15 Results for this COMPLETE W MMODE PM CDT procedure are in SPECTRAL COLOR DOPPLER the results (09728) section. POC GLUCOSE Routine 10/29/2017 3:56 Results for this PM CDT procedure are in the results section. TROPONIN Timed 10/29/2017 3:00 Results for this PM CDT procedure are in the results section. ECG 12-LEAD Routine 10/29/2017 2:27 Results for this PM CDT procedure are in the results section. B NATRIURETIC PEPTIDE Routine 10/29/2017 1:15 Results for this PM CDT procedure are in the results section. ZZESTIMATED GFR STAT 10/29/2017 12:52 Results for this PM CDT procedure are in the results section. BASIC METABOLIC PANEL STAT 10/29/2017 12:52 Results for this PM CDT procedure are in the results section. CREATINE KINASE, TOTAL STAT 10/29/2017 12:52 Results for this (CPK) PM CDT procedure are in the results section. POC GLUCOSE Routine 10/29/2017 11:51 Results for this AM CDT procedure are in the results section. POC GLUCOSE Routine 10/29/2017 10:25 Results for this AM CDT procedure are in the results section. POC GLUCOSE Routine 10/29/2017 9:26 Results for this AM CDT procedure are in the results section. XR CHEST 1 VW PORTABLE STAT 10/29/2017 9:24 Results for this AM CDT procedure are in the results section. B NATRIURETIC PEPTIDE STAT 10/29/2017 8:57 Results for this AM CDT procedure are in the results section. SEDIMENTATION RATE Routine 10/29/2017 8:57 Results for this AM CDT procedure are in the results section. SERUM ELECTROPHORESIS Routine 10/29/2017 8:56 Results for this AM CDT procedure are in the results section. ANTI-NEUTROPHILIC Routine 10/29/2017 8:56 Results for this CYTOPLASMIC ABS PANEL AM CDT procedure are in the results section. ECG 12-LEAD STAT 10/29/2017 8:43 Results for this AM CDT procedure are in the results section. ZZESTIMATED GFR STAT 10/29/2017 8:39 Results for this AM CDT procedure are in the results section. BASIC METABOLIC PANEL STAT 10/29/2017 8:39 Results for this AM CDT procedure are in the results section. TROPONIN STAT 10/29/2017 8:39 Results for this AM CDT procedure are in the results section. ARTERIAL BLOOD GAS STAT 10/29/2017 8:34 Results for this AM CDT procedure are in the results section. POC GLUCOSE Routine 10/29/2017 7:47 Results for this AM CDT procedure are in the results section. PROTHROMBIN TIME WITH Routine 10/29/2017 4:40 Results for this INR AM CDT procedure are in the results section. PARTIAL THROMBOPLASTIN Routine 10/29/2017 4:40 Results for this TIME (PTT) AM CDT procedure are in the results section. HC COMPLETE BLD COUNT Routine 10/29/2017 4:40 Results for this W/AUTO DIFF AM CDT procedure are in the results section. ZZESTIMATED GFR Routine 10/29/2017 4:00 Results for this AM CDT procedure are in the results section. THYROID STIMULATING Routine 10/29/2017 4:00 Results for this HORMONE AM CDT procedure are in the results section. IONIZED CALCIUM Routine 10/29/2017 4:00 Results for this AM CDT procedure are in the results section. PHOSPHORUS LEVEL Routine 10/29/2017 4:00 Results for this AM CDT procedure are in the results section. MAGNESIUM LEVEL Routine 10/29/2017 4:00 Results for this AM CDT procedure are in the results section. COMPREHENSIVE METABOLIC Routine 10/29/2017 4:00 Results for this PANEL AM CDT procedure are in the results section. POC GLUCOSE Routine 10/28/2017 9:09 Results for this PM CDT procedure are in the results section. US RENAL STAT 10/28/2017 6:15 Results for this PM CDT procedure are in the results section. CT LOWER EXTREMITY WO Routine 10/28/2017 4:51 Results for this CONTRAST LEFT PM CDT procedure are in the results section. XR CHEST 1 VW Routine 10/28/2017 3:48 Results for this PM CDT procedure are in the results section. XR FEMUR 2 VW LEFT Routine 10/28/2017 3:47 Results for this PM CDT procedure are in the results section. XR RIBS 2 VW LEFT Routine 10/28/2017 3:47 Results for this PM CDT procedure are in the results section. POC GLUCOSE Routine 10/28/2017 12:46 Results for this PM CDT procedure are in the results section. URINE PROTEIN Routine 10/28/2017 12:16 Results for this ELECTROPHORESIS, RANDOM PM CDT procedure are in the results section. KAPPA LAMBDA FREE LIGHT Routine 10/28/2017 12:16 Results for this CHAIN WITH RATIO PM CDT procedure are in the results section. C4 COMPLEMENT COMPONENT Routine 10/28/2017 12:16 Results for this PM CDT procedure are in the results section. C3 COMPLEMENT COMPONENT Routine 10/28/2017 12:16 Results for this PM CDT procedure are in the results section. URINALYSIS SCREEN AND Routine 10/28/2017 12:16 Results for this MICROSCOPY, WITH REFLEX PM CDT procedure are in TO CULTURE the results section. URINE CULTURE Routine 10/28/2017 12:16 Results for this PM CDT procedure are in the results section. ECG 12-LEAD STAT 10/28/2017 12:09 Results for this PM CDT procedure are in the results section. POC GLUCOSE Routine 10/28/2017 7:11 Results for this AM CDT procedure are in the results section. ZZESTIMATED GFR Routine 10/28/2017 4:15 Results for this AM CDT procedure are in the results section. THYROID STIMULATING Routine 10/28/2017 4:15 Results for this HORMONE AM CDT procedure are in the results section. PHOSPHORUS LEVEL Routine 10/28/2017 4:15 Results for this AM CDT procedure are in the results section. MAGNESIUM LEVEL Routine 10/28/2017 4:15 Results for this AM CDT procedure are in the results section. COMPREHENSIVE METABOLIC Routine 10/28/2017 4:15 Results for this PANEL AM CDT procedure are in the results section. B NATRIURETIC PEPTIDE Routine 10/28/2017 4:15 Results for this AM CDT procedure are in the results section. PARTIAL THROMBOPLASTIN Routine 10/28/2017 4:15 Results for this TIME (PTT) AM CDT procedure are in the results section. PROTHROMBIN TIME WITH Routine 10/28/2017 4:15 Results for this INR AM CDT procedure are in the results section. HEMOGLOBIN A1C Routine 10/28/2017 4:15 Results for this AM CDT procedure are in the results section. HC COMPLETE BLD COUNT Routine 10/28/2017 4:15 Results for this W/AUTO DIFF AM CDT procedure are in the results section. ZZESTIMATED GFR Routine 10/28/2017 4:00 Results for this AM CDT procedure are in the results section. IONIZED CALCIUM Routine 10/28/2017 4:00 Results for this AM CDT procedure are in the results section. PHOSPHORUS LEVEL Routine 10/28/2017 4:00 Results for this AM CDT procedure are in the results section. MAGNESIUM LEVEL Routine 10/28/2017 4:00 Results for this AM CDT procedure are in the results section. COMPREHENSIVE METABOLIC Routine 10/28/2017 4:00 Results for this PANEL AM CDT procedure are in the results section. POC GLUCOSE Routine 10/27/2017 9:12 Results for this PM CDT procedure are in the results section. POC GLUCOSE Routine 10/27/2017 5:39 Results for this PM CDT procedure are in the results section. TRANSFUSE RED BLOOD Routine 10/25/2017 5:26 CELLS [...] 7:17 Obstructive sleep AM CDT apnea syndrome ZZESTIMATED GFR Routine 02/23/2017 3:40 Results for this PM ELEVATOR MECHANIC procedure are in the results section. VITAMIN D 1,25 Routine 02/23/2017 3:40 Pure Results for this DIHYDROXY LEVEL, SERUM PM ELEVATOR MECHANIC hypercholesterolemi procedure are in a the results Idiopathic atrophic section. hypothyroidism Rickets, active Urinary tract infection without hematuria, site unspecified URINALYSIS, AUTOMATED Routine 02/23/2017 3:40 Pure Results for this WITH MICROSCOPY PM ELEVATOR MECHANIC hypercholesterolemi procedure are in a the results Idiopathic atrophic section. hypothyroidism Rickets, active Urinary tract infection without hematuria, site unspecified VITAMIN D 25 HYDROXY Routine 02/23/2017 3:40 Pure Results for this LEVEL PM ELEVATOR MECHANIC hypercholesterolemi procedure are in a the results Idiopathic atrophic section. hypothyroidism Rickets, active Urinary tract infection without hematuria, site unspecified HEMOGLOBIN A1C Routine 02/23/2017 3:40 Pure Results for this PM ELEVATOR MECHANIC hypercholesterolemi procedure are in a the results Idiopathic atrophic section. hypothyroidism Rickets, active Urinary tract infection without hematuria, site unspecified C-REACTIVE PROTEIN Routine 02/23/2017 3:40 Pure Results for this PM ELEVATOR MECHANIC hypercholesterolemi procedure are in a the results Idiopathic atrophic section. hypothyroidism Rickets, active Urinary tract infection without hematuria, site unspecified SEDIMENTATION RATE Routine 02/23/2017 3:40 Pure Results for this PM ELEVATOR MECHANIC hypercholesterolemi procedure are in a the results Idiopathic atrophic section. hypothyroidism Rickets, active Urinary tract infection without hematuria, site unspecified COMPREHENSIVE METABOLIC Routine 02/23/2017 3:40 Pure Results for this PANEL PM ELEVATOR MECHANIC hypercholesterolemi procedure are in a the results Idiopathic atrophic section. hypothyroidism Rickets, active Urinary tract infection without hematuria, site unspecified HC COMPLETE BLD COUNT Routine 02/23/2017 3:40 Pure Results for this W/AUTO DIFF PM ELEVATOR MECHANIC hypercholesterolemi procedure are in a the results Idiopathic atrophic section. hypothyroidism Rickets, active Urinary tract infection without hematuria, site unspecified after 02/13/2017 Results POC glucose (01/27/2018 8:30 AM ELEVATOR MECHANIC)Only the most recent of133 resultswithin the time period is included. POC glucose 157 (H) 65 - 99 mg/dL [facility] Comment: [facility] Notified RN Meter ID: [id number] Heavy Truck Mechanic: Chao Crandall Performing Organization Address City/[facility]/Zipcode Phone Number [facility] DEPARTMENT OF PATHOLOGY AND [address] [place] [id number] [place] [id number] Smear review (01/27/2018 4:10 AM ELEVATOR MECHANIC)Only the most recent of2 resultswithin the time period is included. Platelet slide review Dafne adequate [facility] Anisocytosis Moderate [facility] Polychromasia Moderate [facility] Ovalocytes Moderate [facility] Performing Organization Address City/[facility]/Zipcode Phone Number [facility] DEPARTMENT OF PATHOLOGY AND [address] [place] [id number] [place] [phone] CBC with platelet and differential (01/27/2018 4:10 AM ELEVATOR MECHANIC)Only the most recent of21 resultswithin the time period is included. WBC 4.54 4.50 - 11.00 k/uL [facility] RBC 3.50 (L) 4.20 - 5.50 m/uL [facility] HGB 10.8 (L) 12.0 - 16.0 g/dL [facility] HCT 34.9 (L) 37.0 - 47.0 % [facility] MCV 99.7 82.0 - 100.0 fL [facility] MCH 30.9 27.0 - 34.0 pg [facility] MCHC 30.9 (L) 31.0 - 37.0 g/dL [facility] RDW - SD 48.5 37.0 - 55.0 fL [facility] MPV 10.9 8.8 - 13.2 fL [facility] Platelet count 205 150 - 400 k/uL [facility] Nucleated RBC 0.00 /100 WBC [facility] Neutrophils 59.3 39.0 - 69.0 % [facility] Lymphocytes 27.1 25.0 - 45.0 % [facility] Monocytes 10.4 (H) 0.0 - 10.0 % [facility] Eosinophils 2.4 0.0 - 5.0 % [facility] Basophils 0.4 0.0 - 1.0 % [facility] Immature granulocytes 0.4Comment: "Immature 0.0 - 1.0 % [facility] (promyelocytes, myelocytes, metamyelocytes) Specimen Blood Performing Organization Address City/State/Zipcode Phone Number [facility] DEPARTMENT OF PATHOLOGY AND [address] [place] [address] GENOMIC MEDICINE [address] [address] Estimated GFR (01/27/2018 4:00 AM ELEVATOR MECHANIC)Only the most recent of24 resultswithin the time period is included. Estimated GFR 23 (A) mL/min/1.73 m2 [facility] Comment: HOSPITAL CatergoryUnitsInterpretation G1 >=90 Normal or high G2 60-89Mildly decreased M4j20-72Yibysw to moderately decreased O5w40-16Yctcluorns to severely decreased G4 15-29Severely decreased G5 <15Kidney failure The eGFR was calculated using the Chronic Kidney Disease Epidemiology Collaboration (CKD-EPI) equation. Interpretation is based on recommendations of the National Kidney Foundation-Kidney Disease Outcomes Quality Initiative (NKF-KDOQI) published in 2014. Specimen Plasma specimen Performing Organization Address City/[facility]/Zipcode Phone Number [facility] DEPARTMENT OF PATHOLOGY AND [address] [place] [address] [address] Basic metabolic panel (01/27/2018 4:00 AM ELEVATOR MECHANIC)Only the most recent of21 resultswithin the time period is included. Sodium 136 135 - 148 mEq/L [facility] Potassium 5.2 (H) 3.5 - 5.0 mEq/L [facility] Chloride 103 98 - 112 mEq/L [facility] CO2 19 (L) 24 - 31 mEq/L [facility] Anion gap 14@ANIO 7 - 15 mEq/L [facility] BUN 38 (H) 8 - 23 mg/dL [facility] Creatinine 2.20 (H) 0.50 - 0.90 mg/dL [facility] Glucose 134 (H) 65 - 99 mg/dL [facility] Calcium 9.0 8.8 - 10.2 mg/dL [facility] Specimen Plasma specimen Performing Organization Address [facility] Phone Number [facility] DEPARTMENT OF PATHOLOGY AND [address] [place] [address] [address] ECG 12 lead (01/27/2018 3:59 AM ELEVATOR MECHANIC)Only the most recent of8 resultswithin the time period is included. Ventricular rate 53 [facility] Atrial rate 53 [facility] [place] interval 180 [facility] QRSD interval 146 [facility] QT interval 586 [facility] QTC interval 549 [facility] P axis 1 28 [facility] QRS axis 1 23 [facility] T wave axis 167 [facility] EKG impression Sinus bradycardia-Left bundle branch [facility] MUSE block-Abnormal ECG-In automated comparison with ECG of 26-JAN-2018 13:13,-No significant change was found- Narrative Performed At Performing Organization Address City/[facility] Phone Number [facility] MUSE [address] [place] [address] Creatinine level (01/26/2018 6:00 PM ELEVATOR MECHANIC) Creatinine 2.18 (H) 0.50 - 0.90 mg/dL [facility] Specimen Plasma specimen Performing Organization Address [facility] Phone Number [facility] DEPARTMENT OF PATHOLOGY AND [address] [place] [address] GENOMIC MEDICINE [facility] [address] [place] [address] ECG Pre/Post Op (in AM) (01/26/2018 1:13 PM ELEVATOR MECHANIC)Only the most recent of2 resultswithin the time period is included. Ventricular rate 57 [facility] Atrial rate 57 [facility] [place] interval 134 [facility] QRSD interval 142 [facility] QT interval 562 [facility] QTC interval 547 [facility] P axis 1 25 [facility] QRS axis 1 33 [facility] T wave axis 197 [facility] EKG impression Sinus bradycardia-Left bundle branch [facility] MUSE block-Abnormal ECG-In automated comparison with ECG of 26-JAN-2018 08:44,-No significant change was found- Narrative Performed At Performing Organization Address City/[facility] Phone Number [facility] MUSE [address] [place] [address] Cv ship laborer procedure (01/26/2018 1:03 PM ELEVATOR MECHANIC) Narrative Performed At SURGEON:Sanjay Kebede MD MICHELLE DEEP SEA DIVER:None. TITLE OF OPERATION: 1.Left heart catheterization, selective coronary arteriogram. 2.Percutaneous coronary intervention with medicated stent to left anterior descending (x2), circumflex obtuse marginal 1 (x2). 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 ANESTHESIA: Conscious sedation with Versed and fentanyl. ESTIMATED BLOOD LOSS: 30 mL. COMPLICATIONS: None. OPERATIVE COURSE: After informed consent was obtained from the patient and with appropriate time-out procedures called, the patient was placed on the catheterization table. Both groins were cleaned and prepared in the usual fashion.The patient then received the first dose of conscious sedation with Versed and fentanyl and was supplemented during the procedure.She was continuously monitored by myself and the circulating nurse including end-tidal CO2, oxygenation, blood pressure, heart rate, and respiration.She tolerated the anesthetic portion well. The right femoral area was infused with 1% Xylocaine without epinephrine. The artery was entered without difficulty using standard 18-gauge AMC needle. A 4-Faroese arterial sheath was chosen for access.A JL4 was utilized to visualize the left main coronary artery and its branches.The right coronary was not selectively injected as we knew from previous imaging that it was nondominant. The angiogram revealed that the left main had no significant disease.The proximal LAD had diffuse calcification without significant stenosis. Immediately after the first septal nail sticker, there was an eccentric 70% to 80% stenosis, which had previously been treated with PTCA in October.This had narrowed.Immediately following this was a remotely placed stent, which had the appearance of diffuse in-stent restenosis of at least 70%.This bridged a diagonal, which was a relatively small vessel.Mid portion of the LAD was free of disease while the terminal portion had a focal 90% stenosis, but still residual HALI-3 flow.The circumflex was dominant.The OM1 had a very long 70% to 90% stenosis over at least 30 mm of length.However, the distal vessel was also quite large.The circumflex groove was free of disease as were the 4 posterolateral and posterior descending branches. Once the angiograms were reviewed, we proceeded with percutaneous intervention. The 4-Faroese sheath was exchanged for a 6-Faroese sheath.We then utilized a 6-Faroese EBU 3.75 diagnostic guide.The patient received Angiomax with subsequent ACT greater than 230 seconds prior to wire passage.We initially treated the LAD using a 0.014 Whisper exchange length wire and 2.5 mm x 12 mm semi-compliant balloons.We then placed 2 stents, both of which were 3.0 x 15 mm Resolute medicated stent postdilated to 3.25 mm with a noncompliant balloon. The end result was full stent expansion except for the area of in-stent restenosis where there was a residual 30% stenosis, which was actually felt to be outside rather than inside the stent.There was HALI 3 flow.We then turned our attention to the circumflex OM1.The same wire was utilized to cross the stenosis in the OM1.The lesions were predilated with a 2 x 20 mm balloon.Two stents were then placed, the most distal of which was a 2.5 x 34 mm and the more proximal a 2.5 x 12 mm.The entire stented area was then postdilated with a 2.5 x 21 mm noncompliant balloon.The end result was no residual stenosis, full stent expansion and HALI-3 flow.The patient tolerated the procedure well. Angiomax was discontinued.The guiding catheter was removed.No closure device was utilized as there was dense calcification in the area of the arteriotomy and the area of the pannus was quite thick at the point of arterial puncture. She was taken off the catheterization table and transported to the PACU where sheath will be removed when ACT is less than 170 seconds.In addition, she is being hydrated at 75 mL per hour normal saline and will be seeing nephrology due to preexisting renal insufficiency. Performing Organization Address [facility] Phone Number [facility] [address] [place] [address] Activated clotting time (01/26/2018 12:07 PM ELEVATOR MECHANIC)Only the most recent of2 resultswithin the time period is included. Activated clotting time 302 (H) 96 - 152 sec [facility] Comment: HOSPITAL Meter ID: [id number] Heavy Truck Mechanic: Junito Perea Performing Organization Address [facility] Phone Number [facility] DEPARTMENT OF PATHOLOGY AND [address] [place] [address] GENOMIC MEDICINE [address] [address] POC panel (01/26/2018 9:30 AM ELEVATOR MECHANIC) POC sodium 141 135 - 148 mmol/L [facility] POC potassium 4.8 3.5 - 5.0 mmol/L [facility] POC chloride 109 99 - 109 mmol/L [facility] POC CO2 21 (L) 24 - 31 mmol/L [facility] POC glucose 130 (H) 65 - 99 mg/dL [facility] POC BUN 41 (H) 8 - 24 mg/dL [facility] POC creatinine 2.3 (H) 0.5 - 0.9 mg/dl [facility] POC hematocrit 34 (L) 37 - 47 % [facility] POC anion gap 17 8 - 20 mmol/L [facility] Comment: Meter ID: [id number] Heavy Truck Mechanic: Mary Price Performing Organization Address City/State/Zipcode Phone Number [facility] DEPARTMENT OF PATHOLOGY AND [address] [place] [address] GENOMIC MEDICINE [facility] [address] [place] [address] XR Femur 2 Vw Left (11/13/2017 9:34 AM CDT)Only the most recent of3 resultswithin the time period is included. Narrative Performed At EXAMINATION: XR FEMUR 2 VW LEFT RADIANT INDICATION: Fracturefemur COMPARISON: 11/08/2017 IMPRESSION: Surgical changes status post proximal and distal plate and screw fixation. No evidence of acute hardware complication. Diffuse osteopenia. Healing fractures proximal and distal left femoral diaphyses, partially obscured. Vascular calcifications. [facility]-[id number] Procedure Note Interface, Radiology Results Incoming - 11/13/2017 9:50 AM CDT EXAMINATION: XR FEMUR 2 VW LEFT INDICATION: Fracture femur COMPARISON: 11/08/2017 IMPRESSION: Surgical changes status post proximal and distal plate and screw fixation. No evidence of acute hardware complication. Diffuse osteopenia. Healing fractures proximal and distal left femoral diaphyses, partially obscured. Vascular calcifications. [facility]-[id number] Performing Organization Address [facility]/Zipcode Phone Number [facility] [address] [place] [address] XR Wrist 2 Vw Left (11/12/2017 7:14 PM CDT)Only the most recent of2 resultswithin the time period is included. Narrative Performed At EXAMINATION:XR WRIST 2 VW LEFT RADIANT CLINICAL HISTORY:postop COMPARISON:To previous study from 11/07/2017. IMPRESSION: Internal fixation across a comminuted fracture of the distal radius has been placed. Comminuted fracture of the ulna is again noted. [facility]-[id number] Procedure Note Interface, Radiology Results Incoming - 11/12/2017 7:20 PM CDT EXAMINATION: XR WRIST 2 VW LEFT CLINICAL HISTORY: postop COMPARISON: To previous study from 11/07/2017. IMPRESSION: Internal fixation across a comminuted fracture of the distal radius has been placed. Comminuted fracture of the ulna is again noted. [facility]-[id number] Performing Organization Address City/[facility]/Zipcode Phone Number [facility] [address] [place] [address] XR Abdomen 1 Vw Portable (11/12/2017 3:53 PM CDT)Only the most recent of4 resultswithin the time period is included. Narrative Performed At EXAMINATION:XR ABDOMEN 1 VW PORTABLE RADIANT CLINICAL HISTORY:constipation COMPARISON:To previous examination from 11/09/2017 FINDINGS: Very large amount of feces is noted throughout the colon. There is no evidence of small bowel distention. IMPRESSION: Findings consistent with constipation. [facility]-[id number] Procedure Note Interface, Radiology Results Incoming - 11/12/2017 4:10 PM CDT EXAMINATION: XR ABDOMEN 1 VW PORTABLE CLINICAL HISTORY: constipation COMPARISON: To previous examination from 11/09/2017 FINDINGS: Very large amount of feces is noted throughout the colon. There is no evidence of small bowel distention. IMPRESSION: Findings consistent with constipation. [facility]-[id number] Performing Organization Address [facility] Phone Number [facility] [address] [place] [address] XR Chest 1 Vw Portable (11/12/2017 6:11 AM CDT)Only the most recent of9 resultswithin the time period is included. Narrative Performed At EXAMINATION:XR CHEST 1 VW PORTABLE RADIANT CLINICAL HISTORY: Ventilator Patient COMPARISON:11/11/2017 IMPRESSION: Right jugular line in place. Stable cardiomegaly with mild congestive failure and perihilar edema. Small effusions present. There is mild basilar volume loss. No pneumothorax. [facility]-[id number] Procedure Note Interface, Radiology Results Incoming - 11/12/2017 7:52 AM CDT EXAMINATION: XR CHEST 1 VW PORTABLE CLINICAL HISTORY: Ventilator Patient COMPARISON: 11/11/2017 IMPRESSION: Right jugular line in place. Stable cardiomegaly with mild congestive failure and perihilar edema. Small effusions present. There is mild basilar volume loss. No pneumothorax. [facility]-[id number] Performing Organization Address [facility] Phone Number [facility] [address] [place] [address] Phosphorus level (11/12/2017 1:05 AM CDT)Only the most recent of17 resultswithin the time period is included. Phosphorus 4.4 2.4 - 4.5 mg/dL [facility] DEPARTMENT OF PATHOLOGY AND GENOMIC MEDICINE Specimen Plasma specimen Performing Organization Address [facility]/Zipcode Phone Number [facility] DEPARTMENT OF PATHOLOGY AND [address] [place] [address] Magnesium level (11/12/2017 1:05 AM CDT)Only the most recent of17 resultswithin the time period is included. Magnesium 1.9 1.6 - 2.4 mg/dL [facility] DEPARTMENT OF PATHOLOGY AND GENOMIC MEDICINE Specimen Plasma specimen Performing Organization Address [facility] Phone Number [facility] DEPARTMENT OF PATHOLOGY AND [address] [place] [address] Ionized calcium (11/12/2017 1:05 AM CDT)Only the most recent of11 resultswithin the time period is included. pH 7.43 [facility] DEPARTMENT OF PATHOLOGY AND GENOMIC MEDICINE Ionized calcium 1.15 1.11 - 1.32 mmol/L [facility] DEPARTMENT OF PATHOLOGY AND GENOMIC MEDICINE Specimen Plasma specimen Performing Organization Address [facility] Phone Number [facility] DEPARTMENT OF PATHOLOGY AND [address] [place] [address] Prothrombin time with INR (11/12/2017 12:50 AM CDT)Only the most recent of9 resultswithin the time period is included. Prothrombin time 15.3 (H) 12.0 - 15.0 sec [facility] DEPARTMENT OF PATHOLOGY AND GENOMIC MEDICINE INR 1.2 [facility] DEPARTMENT OF Comment: PATHOLOGY AND GENOMIC The International Normalized Ratio (INR) is a therapeutic MEDICINE monitoring tool for patients who are stable on oral anticoagulant therapy. An INR of 2.0-3.0 is suggested for deep vein thrombosis/pulmonary embolism. Specimen Blood Performing Organization Address [facility] Phone Number [facility] DEPARTMENT OF PATHOLOGY AND [address] [place] [address] Hemoglobin & hematocrit (11/11/2017 8:52 AM CDT)Only the most recent of6 resultswithin the time period is included. HGB 8.0 (L) 12.0 - 16.0 g/dL [facility] DEPARTMENT OF PATHOLOGY AND GENOMIC MEDICINE HCT 25.8 (L) 37.0 - 47.0 % [facility] DEPARTMENT OF PATHOLOGY AND GENOMIC MEDICINE Specimen Blood Performing Organization Address City/[facility] Phone Number [facility] DEPARTMENT OF PATHOLOGY AND [address] [place] [address] Troponin (11/10/2017 4:14 PM CDT)Only the most recent of14 resultswithin the time period is included. Troponin <0.30 0.00 - 0.30 ng/mL [facility] DEPARTMENT OF PATHOLOGY Comment: AND GENOMIC MEDICINE 0.30 - 1.49 ng/mlMay indicate increased risk of acute coronary syndrome. >=1.5 ng/mlConsistent with acute myocardial infarction. The diagnostic value of a single normal or non-diagnostic result is questionable.Serial samples at 2-6 hour intervals are required to rule out acute myocardial injury. Specimen Plasma specimen Performing Organization Address City/[facility] Phone Number [facility] DEPARTMENT OF PATHOLOGY AND [address] [place] [address] Arterial blood gas (11/10/2017 2:34 PM CDT)Only the most recent of7 resultswithin the time period is included. pH, arterial 7.46 (H) 7.35 - 7.45 [facility] DEPARTMENT OF PATHOLOGY AND GENOMIC MEDICINE pCO2, arterial 31 (L) 35 - 45 mmHg [facility] DEPARTMENT OF PATHOLOGY AND GENOMIC MEDICINE pO2, arterial 74 (L) 80 - 90 mmHg [facility] DEPARTMENT OF PATHOLOGY AND GENOMIC MEDICINE Bicarbonate, arterial 21.4 21.0 - 28.0 mmol/L [facility] DEPARTMENT OF PATHOLOGY AND GENOMIC MEDICINE Base excess, arterial -2 -2 - 2 mEq/L [facility] DEPARTMENT OF PATHOLOGY AND GENOMIC MEDICINE O2 saturation, arterial 99 95 - 100 % [facility] DEPARTMENT OF PATHOLOGY AND GENOMIC MEDICINE Specimen Blood Performing Organization Address [facility] Phone Number [facility] DEPARTMENT OF PATHOLOGY AND [address] [place] [address] Ionized calcium, arterial (11/10/2017 3:00 AM CDT)Only the most recent of4 resultswithin the time period is included. Ionized calcium, arterial 1.05 (L) 1.11 - 1.32 mmol/L [facility] DEPARTMENT OF PATHOLOGY AND [employer] MEDICINE Specimen Blood Performing Organization Address City/[facility] Phone Number [facility] DEPARTMENT OF PATHOLOGY AND [address] [place] [address] Partial thromboplastin time, activated (11/10/2017 3:00 AM CDT)Only the most recent of13 resultswithin the time period is included. PTT 34.3 23.0 - 36.0 sec [facility] DEPARTMENT OF PATHOLOGY Comment: AND [facility] PTT therapeutic range for unfractionated heparin is 61.0-112.0 seconds which corresponds to Anti-Xa 0.3-0.7 U/ml. Specimen Blood Performing Organization Address [facility] Phone Number [facility] DEPARTMENT OF PATHOLOGY AND [address] [place] [address] Fibrinogen (11/10/2017 3:00 AM CDT) Fibrinogen 496 (H) 200 - 450 mg/dL [facility] DEPARTMENT OF PATHOLOGY AND [facility] Specimen Blood Performing Organization Address [facility] Phone Number [facility] DEPARTMENT OF PATHOLOGY AND [address] [place] [address] Echocardiogram 2d limited (11/08/2017 3:56 PM CDT) Narrative Performed At [facility] Echocardiography Report [address] [place] [address] Pat.Name:VIRI JEFFERSON Pat.ID:[id number] .Date: 11/08/2017 Refer.MD:ROSA LOPEZ MD Exam Time: 3:15:00 PMStudy Type:Routine Echo Height:65inWeight: 184lb BSA: 1.91 m2 DOBAge:1955,62Y Sex: FEMALEBP:174/72 HR:47 bpmSonogrphr: Jessie Del Rio RDCS Pat. Stat.:Inpatient Room:[place] [address] Study Status:Final Echo Event ID:[id number] Order ID:[id number] Reason for Study:Myocardial Ischemia/ Infarction - Eval of a patient without chest pain but with other features of an ischemic equivalent or laboratory markers indicative of ongoing IA History / Clinical:Diabetes, Hypertension, IA, Rheumatoid Arthritis Procedures:Strain, Portable, 2D Echo,Colorflow Doppler Limited Race:C SUMMARY: LV EF is mildly depressed. Regional wall motion abnormalities present. FINDINGS: LV: LV size is normal. There is mild concentric LV hypertrophy. LVEF is mildly depressed. Septal motion is paradoxical. AvgGLS is severely reduced at 9.2%. Estimated EF is 45-49%.Regional wall motion abnormalities present. RV: RV size is normal. RV systolic function is lower limits of normal. LA: LA volume is mildly enlarged. RA: RA size is normal. AO: Aortic root diameter is normal. JOSELO: No pericardial effusion. IAS:Interatrial septum is thickened consistent with lipomatous hypertrophy. AV: Mild thickening of AV leaflets. Mild aortic regurgitation. MV: Mild calcification of mitral leaflets. PV: No structural PV abnormalities noted. TV: No structural TV abnormalities noted. Kinsey: Hepatic vein pressure is elevated, RA pressure 10-15mmHg. Diastolicdysfunction Grade I (Mild): Impaired relaxation withnormal LV filling pressures. MEASUREMENTS: 2D Parasternal Long Smoot LVOT 1.9 cmIVSd 1 cm Ao An2.1 cmLVPWd1.2 cm Ao Rtd 2.9 cmIndex1.5 cm/m LA Ds4 cm LVIDd5 cmIndex2.6 cm/m LV Afit843.1 g(87-129) LVIDs3.6 cmLVM Alakg507.4 g/m2 LV%fs 28 % RWT0.5 LA Sng Plane LA Area 21.1 cm2(8.8-23.4) LA Vol67.2 ml Index35.2 ml/m LA LngAx 5.2 cm RA Sng Plane RA Area 12.7 cm2(8.3-19.5) RA Vol30.3 ml Index15.9 ml/m RA LngAx 4.4 cm DOPPLER LVOT Stroke Vol LVOT 1.9 cmLVOT CO4.3 l/min LVOT TVI27.2 cmLVOT CI2.3 l/m/m2 LVOT Tm362 zsvoVC60 bpm LVOT SV 77 ml WALL MOTION: RESTING WALL MOTION: Mid Inferoseptal, Apical Septal hernandez are hypokinetic.Basal Anterior, Basal Anteroseptal, Basal Inferoseptal, Mid Anterior, Mid Anteroseptal, Apical Anterior, Apical Inferior, Apical hernandez are mildly hypokinetic. Normal in all other hernandez. Wall Index=1.4 Signed 11/08/2017 05:21 PM Neil Santos M.D. Procedure Note Interface, Radiology Results In - 11/08/2017 5:22 PM CDT Echocardiography Report [address] [place] [address] Pat.Name: VIRI JEFFERSON Pat.ID: [id number] .Date: 11/08/2017 Refer.MD: ROSA LOPEZ MD Exam Time: 3:15:00 PM Study Type:Routine Echo Height: 65in Weight: 184lb BSA: 1.91 m2 Age: 7 1955,62Y Sex: FEMALE BP: 174/72 HR: 47 bpm Sonogrphr: Jessie Del Rio RDCS Pat. Stat.:Inpatient Room: [place] [address] Study Status:Final Echo Event ID:[id number] Order ID: [id number] Reason for Study:Myocardial Ischemia/ Infarction - Eval of a patient without chest pain but with other features of an ischemic equivalent or laboratory markers indicative of ongoing IA History / Clinical:Diabetes, Hypertension, IA, Rheumatoid Arthritis Procedures:Strain, Portable, 2D Echo,Colorflow Doppler Limited Race: C SUMMARY: LV EF is mildly depressed. Regional wall motion abnormalities present. FINDINGS: LV: LV size is normal. There is mild concentric LV hypertrophy. LV EF is mildly depressed. Septal motion is paradoxical. Avg GLS is severely reduced at 9.2%. Estimated EF is 45-49%. Regional wall motion abnormalities present. RV: RV size is normal. RV systolic function is lower limits of normal. LA: LA volume is mildly enlarged. RA: RA size is normal. AO: Aortic root diameter is normal. JOSELO: No pericardial effusion. IAS: Interatrial septum is thickened consistent with lipomatous hypertrophy. AV: Mild thickening of AV leaflets. Mild aortic regurgitation. MV: Mild calcification of mitral leaflets. PV: No structural PV abnormalities noted. TV: No structural TV abnormalities noted. Kinsey: Hepatic vein pressure is elevated, RA pressure 10-15mmHg. Diastolic dysfunction Grade I (Mild): Impaired relaxation with normal LV filling pressures. MEASUREMENTS: 2D Parasternal Long Smoot LVOT 1.9 cm IVSd 1 cm Ao An 2.1 cm LVPWd 1.2 cm Ao Rtd 2.9 cm Index 1.5 cm/m LA Ds 4 cm LVIDd 5 cm Index 2.6 cm/m LV Mass 207.1 g (87-129) LVIDs 3.6 cm LVM Index 108.4 g/m2 LV%fs 28 % RWT 0.5 LA Sng Plane LA Area 21.1 cm2 (8.8-23.4) LA Vol 67.2 ml Index 35.2 ml/m LA LngAx 5.2 cm RA Sng Plane RA Area 12.7 cm2 (8.3-19.5) RA Vol 30.3 ml Index 15.9 ml/m RA LngAx 4.4 cm DOPPLER LVOT Stroke Vol LVOT 1.9 cm LVOT CO 4.3 l/min LVOT TVI 27.2 cm LVOT CI 2.3 l/m/m2 LVOT Tm 362 msec HR 56 bpm LVOT SV 77 ml WALL MOTION: RESTING WALL MOTION: Mid Inferoseptal, Apical Septal hernandez are hypokinetic. Basal Anterior, Basal Anteroseptal, Basal Inferoseptal, Mid Anterior, Mid Anteroseptal, Apical Anterior, Apical Inferior, Apical hernandez are mildly hypokinetic. Normal in all other hernandez. Wall Index=1.4 Signed 11/08/2017 05:21 PM Neil Santos M.D. Performing Organization Address City/State/Zipcode Phone Number [facility] [address] [place] [address] Pv duplex venous lower extremity (11/08/2017 3:54 PM CDT) Narrative Performed At [facility] Vascular Ultrasound Laboratory Lower Extremity Venous Report [address] [place] [address] Pat.Name:VIRI JEFFERSON Pat.ID:[id number] .Date: 11/08/2017 Refer.MD:ROSA LOPEZ MD Exam Time: 3:26:00 PMStudy Type:LE Venous DOBAge:1955,62YSex: FEMALE Sonogrphr: Taye Sotelo, MONI, PARTH Pat. Stat.:Inpatient Room:[place] [address]TapeVol: MCKAYLA, CPT - 4: 01232 Echo Event ID:[id number] Order ID:[id number] Reason for Study:Pulmonary embolism suspected, high pretest prob, evaluate for DVT. Procedures:Colorflow, Grayscale/2D, Pulsed wave Doppler Race:C SUMMARY: DUPLEX SCAN OBSERVATIONS Deep VeinsSuperficial Veins RightLeft RightLeft GSV (prox) NormalNormal CFV Normal Normal (above knee) Femoral Normal Normal GSV (dist) Normal Normal Profunda Normal Normal (below knee) Popliteal Normal Normal PT (prox) Normal NormalSSV Not Visualized Normal PT (dist) Normal Normal Peroneal Normal Normal RIGHT:There is normal compressibility with no evidence of echogenic material noted within the lumen of the visualized veins. Color flow and Doppler signals are normal. LEFT: There is normal compressibility with no evidence of echogenic material noted within the lumen of the visualized veins. Color flow and Doppler signals are normal. PRELIMINARY FINDINGS 1. No evidence of venous thrombosis of the visualized veins, bilaterally. PHYSICIAN INTERPRETATION Venous examination of the both lower extremities demonstrated no evidence of venous thrombosis in the visualized veins.Normal compressibility and augmentation of all veins visualized. Signed 11/08/2017 06:06 PM Alphonse Hurley MD, RPVI Procedure Note Interface, Radiology Results In - 11/08/2017 6:07 PM CDT Vascular Ultrasound Laboratory Lower Extremity Venous Report [id number]Name: VIRI JEFFERSON Pat.ID: [id number] St.Date: 11/08/2017 Refer.MD: ROSA LOPEZ MD Exam Time: 3:26:00 PM Study Type:LE Venous Age: 7 1955,62Y Sex: FEMALE Sonogrphr: MONI Farr, PARTH Pat. Stat.:Inpatient Room: [facility] [address] Tape Vol: MCKAYLA, CPT - 4: 52944 Echo Event ID:[id number] Order ID: [id number] Reason for Study:Pulmonary embolism suspected, high pretest prob, evaluate for DVT. Procedures:Colorflow, Grayscale/2D, Pulsed wave Doppler Race: C SUMMARY: DUPLEX SCAN OBSERVATIONS Deep Veins Superficial Veins Right Left Right Left GSV (prox) Normal Normal CFV Normal Normal (above knee) Femoral Normal Normal GSV (dist) Normal Normal Profunda Normal Normal (below knee) Popliteal Normal Normal PT (prox) Normal Normal SSV Not Visualized Normal PT (dist) Normal Normal Peroneal Normal Normal RIGHT: There is normal compressibility with no evidence of echogenic material noted within the lumen of the visualized veins. Color flow and Doppler signals are normal. LEFT: There is normal compressibility with no evidence of echogenic material noted within the lumen of the visualized veins. Color flow and Doppler signals are normal. PRELIMINARY FINDINGS 1. No evidence of venous thrombosis of the visualized veins, bilaterally. PHYSICIAN INTERPRETATION Venous examination of the both lower extremities demonstrated no evidence of venous thrombosis in the visualized veins. Normal compressibility and augmentation of all veins visualized. Signed 11/08/2017 06:06 PM Alphonse Hurley MD, RPVI Performing Organization Address City/State/Zipcode Phone Number [facility] [address] [place] [address] Urinalysis screen and microscopy, with reflex to culture (11/08/2017 3:25 PM CDT)Only the most recent of3 resultswithin the time period is included. Specimen site Catheterized [facility] DEPARTMENT OF PATHOLOGY AND GENOMIC MEDICINE Color, UA Yellow [facility] DEPARTMENT OF PATHOLOGY AND GENOMIC MEDICINE Appearance, UA Cloudy [facility] DEPARTMENT OF PATHOLOGY AND GENOMIC MEDICINE Specific gravity, UA 1.020 1.001 - 1.035 [facility] DEPARTMENT OF PATHOLOGY AND GENOMIC MEDICINE pH, UA 5.0 5.0 - 8.5 [facility] DEPARTMENT OF PATHOLOGY AND GENOMIC MEDICINE Protein, UA 2+ (A) Negative [facility] DEPARTMENT OF PATHOLOGY AND GENOMIC MEDICINE Glucose, UA 3+ (A) Negative [facility] DEPARTMENT OF PATHOLOGY AND GENOMIC MEDICINE Ketones, UA Trace (A) Negative [facility] DEPARTMENT OF PATHOLOGY AND GENOMIC MEDICINE Bilirubin, UA Negative Negative [facility] DEPARTMENT OF PATHOLOGY AND GENOMIC MEDICINE Blood, UA Moderate (A) Negative [facility] DEPARTMENT OF PATHOLOGY AND GENOMIC MEDICINE Nitrite, UA Negative Negative [facility] DEPARTMENT OF PATHOLOGY AND GENOMIC MEDICINE Urobilinogen, UA <2.0 <2.0 [facility] DEPARTMENT OF PATHOLOGY AND GENOMIC MEDICINE Leukocyte esterase, UA Negative Negative [facility] DEPARTMENT OF PATHOLOGY AND GENOMIC MEDICINE Epithelial cells, UA 1 /HPF [facility] DEPARTMENT OF PATHOLOGY AND GENOMIC MEDICINE WBC, UA 9 (H) 0 - 4 /HPF [facility] DEPARTMENT OF PATHOLOGY AND GENOMIC MEDICINE RBC, UA 5 0 - 5 /HPF [facility] DEPARTMENT OF PATHOLOGY AND GENOMIC MEDICINE Bacteria, UA Moderate (A) None seen [facility] DEPARTMENT OF PATHOLOGY AND GENOMIC MEDICINE Yeast, UA None seen [facility] DEPARTMENT OF PATHOLOGY AND GENOMIC MEDICINE Yeast with pseudohyphae, UA None seen [facility] DEPARTMENT OF PATHOLOGY AND GENOMIC MEDICINE Uric acid crystals, UA Few [facility] DEPARTMENT OF PATHOLOGY AND GENOMIC MEDICINE Specimen Urine Performing Organization Address [facility] Phone Number [facility] DEPARTMENT OF PATHOLOGY AND [address] [place] [address] MEDICINE Gram stain (11/08/2017 3:25 PM CDT)Only the most recent of4 resultswithin the time period is included. Gram stain result No WBC's or organisms seen. [facility] DEPARTMENT OF PATHOLOGY Comment: AND GENOMIC MEDICINE Specimen Information Specimen Source: Urine Specimen Site: Catheterized Specimen Urine - Catheterized Performing Organization Address City/[facility] Phone Number [facility] DEPARTMENT OF PATHOLOGY AND [address] [place] [address] Urine culture (11/08/2017 3:25 PM CDT)Only the most recent of3 resultswithin the time period is included. Urine culture isolate No growth after 2 days. [facility] DEPARTMENT OF Comment: PATHOLOGY AND GENOMIC Specimen Information MEDICINE Specimen Source: Urine Specimen Site: Catheterized Specimen Urine - Catheterized Performing Organization Address [facility] Phone Number [facility] DEPARTMENT OF PATHOLOGY AND [address] [place] [address] MEDICINE LDH (11/08/2017 12:52 PM CDT) LDH 271 (H) 87 - 225 U/L [facility] DEPARTMENT OF PATHOLOGY AND GENOMIC MEDICINE Specimen Plasma specimen Performing Organization Address [facility] Phone Number [facility] DEPARTMENT OF PATHOLOGY AND [address] [place] [address] Lactic acid level (11/08/2017 12:52 PM CDT)Only the most recent of2 resultswithin the time period is included. Lactic acid 0.9 0.5 - 2.2 mmol/L [facility] DEPARTMENT OF PATHOLOGY AND GENOMIC MEDICINE Specimen Plasma specimen Performing Organization Address City/[facility] Phone Number [facility] DEPARTMENT OF PATHOLOGY AND [address] [place] [address] [facility] MEDICINE Hepatic function panel (11/08/2017 12:52 PM CDT) Albumin 1.9 (L) 3.5 - 5.0 g/dL [facility] DEPARTMENT OF PATHOLOGY AND GENOMIC MEDICINE Total bilirubin 0.3 0.0 - 1.2 mg/dL [facility] DEPARTMENT OF PATHOLOGY AND GENOMIC MEDICINE Bilirubin direct <0.2 0.0 - 0.3 mg/dL [facility] DEPARTMENT OF PATHOLOGY AND GENOMIC MEDICINE Alkaline phosphatase 49 35 - 104 U/L [facility] DEPARTMENT OF PATHOLOGY AND GENOMIC MEDICINE Protein 5.7 (L) 6.3 - 8.3 g/dL [facility] DEPARTMENT OF Comment: PATHOLOGY AND GENOMIC [place] 4.6-7.0 g/dL MEDICINE 1 week 4.4-7.6 g/dL 7 months-1year5.1-7.3 g/dL 1-2 years5.6-7.5 g/dL >3 years6.0-8.0 g/dL 18-150 6.3-8.3 g/dL ALT 20 5 - 50 U/L [facility] DEPARTMENT OF PATHOLOGY AND GENOMIC MEDICINE AST 16 10 - 35 U/L [facility] DEPARTMENT OF PATHOLOGY AND GENOMIC MEDICINE Specimen Plasma specimen Performing Organization Address City/[facility] Phone Number [facility] DEPARTMENT OF PATHOLOGY AND [address] [place] [address] [facility] [place] > I Hour (11/08/2017 11:43 AM CDT) Narrative Performed At IMPRESSION: C-arm fluoroscopy over 1 hour was provided in the OR for the [facility] referring physician. A radiologist was not present during the procedure. Refer to the Operative report issued by the performing provider for procedure details. [facility] OR 19 ROOM: 8 PROCEDURE: LEFT PROXIMAL FEMUR ORIF START TIME: 0815 END TIME: 1140 FLUORO TIME: 1 MIN 45 SEC DOSAGE: 16.88 mGy Procedure Note Interface, Radiology Results Incoming - 11/08/2017 3:02 PM CDT IMPRESSION: C-arm fluoroscopy over 1 hour was provided in the OR for the referring physician. A radiologist was not present during the procedure. Refer to the Operative report issued by the performing provider for procedure details. [facility] OR 19 ROOM: 8 PROCEDURE: LEFT PROXIMAL FEMUR ORIF START TIME: 0815 END TIME: 1140 FLUORO TIME: 1 MIN 45 SEC DOSAGE: 16.88 mGy Performing Organization Address [facility] Phone Number [facility] [address] [place] [id number] [place] < 1 Hour (11/08/2017 11:40 AM CDT) Narrative Performed At IMPRESSION: C-arm fluoroscopy under one hour was provided in the OR for [facility] the referring physician. A radiologist was not present during the procedure. Refer to the Operative report issued by the performing provider for procedure details. [facility] OR 19 ROOM: 8 PROCEDURE: LEFT DISTAL RADIUS ORIF START TIME: 1015 END TIME: 1140 FLUORO TIME: 1 MIN 45 SEC DOSAGE: 16.88 mGy TECH: GXA Procedure Note Interface, Radiology Results Incoming - 11/08/2017 3:02 PM CDT IMPRESSION: C-arm fluoroscopy under one hour was provided in the OR for the referring physician. A radiologist was not present during the procedure. Refer to the Operative report issued by the performing provider for procedure details. [facility] OR 19 ROOM: 8 PROCEDURE: LEFT DISTAL RADIUS ORIF START TIME: 1015 END TIME: 1140 FLUORO TIME: 1 MIN 45 SEC DOSAGE: 16.88 mGy TECH: GXA Performing Organization Address [facility] Phone Number [facility] [address] [place] [address] Fungus smear (11/08/2017 11:25 AM CDT) Fungus smear No fungi observed. [facility] DEPARTMENT OF PATHOLOGY AND Comment: GENOMIC MEDICINE Specimen Information Specimen Source: Incision Specimen Site: Wrist, left Specimen Incision - Wrist, left Performing Organization Address [facility] Phone Number [facility] DEPARTMENT OF PATHOLOGY AND [address] [place] [address] GENOMIC MEDICINE AFB culture (11/08/2017 11:25 AM CDT)Only the most recent of2 resultswithin the time period is included. AFB culture isolate No growth after 6 weeks of incubation. [facility] DEPARTMENT OF PATHOLOGY Comment: AND GENOMIC MEDICINE Specimen Information Specimen Source: Incision Specimen Site: Wrist, left Specimen Incision - Wrist, left Performing Organization Address [facility] Phone Number [facility] DEPARTMENT OF PATHOLOGY AND [address] [place] [address] GENOMIC MEDICINE Aerobic culture (11/08/2017 11:25 AM CDT)Only the most recent of2 resultswithin the time period is included. Aerobic culture isolate No growth after 3 days. [facility] DEPARTMENT OF Comment: PATHOLOGY AND GENOMIC Specimen Information MEDICINE Specimen Source: Incision Specimen Site: Wrist, left Specimen Incision - Wrist, left Performing Organization Address [facility] Phone Number [facility] DEPARTMENT OF PATHOLOGY AND [address] [place] [address] GENOMIC MEDICINE AFB stain (11/08/2017 11:25 AM CDT)Only the most recent of2 resultswithin the time period is included. AFB stain No acid fast bacilli (AFB) seen. [facility] DEPARTMENT OF PATHOLOGY AND Comment: GENOMIC MEDICINE Specimen Information Specimen Source: Incision Specimen Site: Wrist, left Specimen Incision - Wrist, left Performing Organization Address [facility] Phone Number [facility] DEPARTMENT OF PATHOLOGY AND [address] [place] [address] MEDICINE Fungus culture (11/08/2017 11:25 AM CDT) Fungus culture isolate No growth after 4 weeks of incubation. [facility] DEPARTMENT OF Comment: PATHOLOGY AND GENOMIC Specimen Information MEDICINE Specimen Source: Incision Specimen Site: Wrist, left Specimen Incision - Wrist, left Performing Organization Address [facility] Phone Number [facility] DEPARTMENT OF PATHOLOGY AND [address] [place] [address] MEDICINE Anaerobic culture (11/08/2017 11:25 AM CDT)Only the most recent of2 resultswithin the time period is included. Anaerobic culture No anaerobic organisms isolated. [facility] DEPARTMENT OF isolate Comment: PATHOLOGY AND GENOMIC Specimen Information MEDICINE Specimen Source: Incision Specimen Site: Wrist, left Specimen Incision - Wrist, left Performing Organization Address [facility] Phone Number [facility] DEPARTMENT OF PATHOLOGY AND [address] [place] [address] GENOMIC MEDICINE Sodium level, syringe (11/08/2017 10:45 AM CDT)Only the most recent of2 resultswithin the time period is included. Sodium, syringe 142 135 - 148 mEq/L [facility] DEPARTMENT OF PATHOLOGY AND GENOMIC MEDICINE Specimen Blood Performing Organization Address [facility] Phone Number [facility] DEPARTMENT OF PATHOLOGY AND [address] [place] [address] GENOMIC MEDICINE Potassium, syringe (11/08/2017 10:45 AM CDT)Only the most recent of2 resultswithin the time period is included. Potassium, syringe 5.1 (H) 3.5 - 5.0 mEq/L [facility] DEPARTMENT OF PATHOLOGY AND GENOMIC MEDICINE Specimen Blood Performing Organization Address City/[facility] Phone Number [facility] DEPARTMENT OF PATHOLOGY AND [address] [place] [address] Hemoglobin, syringe (11/08/2017 10:45 AM CDT)Only the most recent of2 resultswithin the time period is included. Hemoglobin, syringe 8.7 (L) 12.0 - 16.0 g/dL [facility] DEPARTMENT OF PATHOLOGY AND GENOMIC MEDICINE Specimen Blood Performing Organization Address City/[facility] Phone Number [facility] DEPARTMENT OF PATHOLOGY AND [address] [place] [address] Glucose level, syringe (11/08/2017 10:45 AM CDT)Only the most recent of2 resultswithin the time period is included. Glucose, syringe 143 (H) 65 - 99 mg/dL [facility] DEPARTMENT OF PATHOLOGY AND GENOMIC MEDICINE Specimen Blood Performing Organization Address [facility] Phone Number [facility] DEPARTMENT OF PATHOLOGY AND [address] [place] [address] Arterial blood gas, corrected (11/08/2017 10:45 AM CDT)Only the most recent of2 resultswithin the time period is included. pH, arterial 7.37 7.35 - 7.45 [facility] DEPARTMENT OF PATHOLOGY AND GENOMIC MEDICINE pCO2, arterial 40 35 - 45 mmHg [facility] DEPARTMENT OF PATHOLOGY AND GENOMIC MEDICINE pO2, arterial 99 (H) 80 - 90 mmHg [facility] DEPARTMENT OF PATHOLOGY AND GENOMIC MEDICINE Temperature, Celsius 36.5 Degrees C [facility] DEPARTMENT OF PATHOLOGY AND GENOMIC MEDICINE O2 saturation, arterial 97 95 - 100 % [facility] DEPARTMENT OF PATHOLOGY AND GENOMIC MEDICINE pH, arterial corrected 7.38 [facility] DEPARTMENT OF PATHOLOGY AND GENOMIC MEDICINE pCO2, arterial corrected 39 mmHg [facility] DEPARTMENT OF PATHOLOGY AND GENOMIC MEDICINE pO2, arterial corrected 97 mmHg [facility] DEPARTMENT OF PATHOLOGY AND GENOMIC MEDICINE Base excess, arterial -2 -2 - 2 mEq/L [facility] DEPARTMENT OF PATHOLOGY AND GENOMIC MEDICINE Specimen Blood Performing Organization Address City/[facility] Phone Number [facility] DEPARTMENT OF PATHOLOGY AND [address] [place] [address] MEDICINE POC panel 4 (11/08/2017 7:27 AM CDT) POC sodium 141 135 - 148 mmol/L [facility] DEPARTMENT OF PATHOLOGY AND GENOMIC MEDICINE POC potassium 5.3 (H) 3.5 - 5.0 mmol/L [facility] DEPARTMENT OF PATHOLOGY AND GENOMIC MEDICINE POC hematocrit 29 (L) 37 - 47 % [facility] DEPARTMENT OF PATHOLOGY Comment: AND GENOMIC MEDICINE Meter ID: [id number] [employer] Mechanic: Denton Adamsn POC glucose 133 (H) 65 - 99 mg/dL [facility] DEPARTMENT OF PATHOLOGY AND GENOMIC MEDICINE Performing Organization Address City/[facility] Phone Number [facility] DEPARTMENT OF PATHOLOGY AND [address] [place] [address] GENOMIC MEDICINE Prepare platelets (11/08/2017 4:30 AM CDT) Product name Apheresis PLT, Leukored IRR [facility] DEPARTMENT OF #2 PATHOLOGY AND GENOMIC MEDICINE Unit number [id number] [facility] DEPARTMENT OF PATHOLOGY AND GENOMIC MEDICINE Product code [id number] [facility] DEPARTMENT OF PATHOLOGY AND GENOMIC MEDICINE Dispense status Transfused [facility] DEPARTMENT OF PATHOLOGY AND GENOMIC MEDICINE Blood expiration date [facility] DEPARTMENT OF PATHOLOGY AND GENOMIC MEDICINE Blood type code 5100 [facility] DEPARTMENT OF PATHOLOGY AND GENOMIC MEDICINE Blood type O POSITIVE [facility] DEPARTMENT OF PATHOLOGY AND GENOMIC MEDICINE Performing Organization Address City[facility] Phone Number [facility] DEPARTMENT OF PATHOLOGY AND [address] [place] [address] GENOMIC MEDICINE Prepare RBC (11/08/2017 4:30 AM CDT)Only the most recent of3 resultswithin the time period is included. Product name Red Blood Cells -1, [facility] DEPARTMENT OF Leukored PATHOLOGY AND GENOMIC MEDICINE Unit number [id number] [facility] DEPARTMENT OF PATHOLOGY AND GENOMIC MEDICINE Product code [id number] [facility] DEPARTMENT OF PATHOLOGY AND GENOMIC MEDICINE Dispense status Transfused [facility] DEPARTMENT OF PATHOLOGY AND GENOMIC MEDICINE Blood expiration date [facility] DEPARTMENT OF PATHOLOGY AND GENOMIC MEDICINE Blood type code 6200 [facility] DEPARTMENT OF PATHOLOGY AND GENOMIC MEDICINE Blood type A POSITIVE [facility] DEPARTMENT OF PATHOLOGY AND GENOMIC MEDICINE Product name Red Blood Cells -1, [facility] DEPARTMENT OF Leukored PATHOLOGY AND GENOMIC MEDICINE Unit number [id number] [facility] DEPARTMENT OF PATHOLOGY AND GENOMIC MEDICINE Product code [id number] [facility] DEPARTMENT OF PATHOLOGY AND GENOMIC MEDICINE Dispense status Transfused [facility] DEPARTMENT OF PATHOLOGY AND GENOMIC MEDICINE Blood expiration date [id number] [facility] DEPARTMENT OF PATHOLOGY AND GENOMIC MEDICINE Blood type code 6200 [facility] DEPARTMENT OF PATHOLOGY AND GENOMIC MEDICINE Blood type A POSITIVE [facility] DEPARTMENT OF PATHOLOGY AND GENOMIC MEDICINE Performing Organization Address City/[facility] Phone Number [facility] DEPARTMENT OF PATHOLOGY AND [address] [place] [address] GENOMIC MEDICINE Type and screen (11/08/2017 4:30 AM CDT)Only the most recent of2 resultswithin the time period is included. ABO grouping A [facility] DEPARTMENT OF PATHOLOGY AND GENOMIC MEDICINE Rh type POS [facility] DEPARTMENT OF PATHOLOGY AND GENOMIC MEDICINE Antibody screen (gel) NEG [facility] DEPARTMENT OF PATHOLOGY AND GENOMIC MEDICINE Specimen Blood Performing Organization Address City/[facility] Phone Number [facility] DEPARTMENT OF PATHOLOGY AND [address] [place] [address] [facility] MEDICINE Comprehensive metabolic panel (11/08/2017 4:00 AM CDT)Only the most recent of10 resultswithin the time period is included. Sodium 139 135 - 148 mEq/L [facility] DEPARTMENT OF PATHOLOGY AND GENOMIC MEDICINE Potassium 5.5 (H) 3.5 - 5.0 mEq/L [facility] DEPARTMENT OF PATHOLOGY AND GENOMIC MEDICINE Chloride 109 98 - 112 mEq/L [facility] DEPARTMENT OF PATHOLOGY AND GENOMIC MEDICINE CO2 17 (L) 24 - 31 mEq/L [facility] DEPARTMENT OF PATHOLOGY AND GENOMIC MEDICINE Anion gap 13@ANIO 7 - 15 mEq/L [facility] DEPARTMENT OF PATHOLOGY AND GENOMIC MEDICINE BUN 37 (H) 8 - 23 mg/dL [facility] DEPARTMENT OF PATHOLOGY AND GENOMIC MEDICINE Creatinine 1.76 (H) 0.50 - 0.90 mg/dL [facility] DEPARTMENT OF PATHOLOGY AND GENOMIC MEDICINE Glucose 131 (H) 65 - 99 mg/dL [facility] DEPARTMENT OF PATHOLOGY AND GENOMIC MEDICINE Calcium 7.6 (L) 8.8 - 10.2 mg/dL [facility] DEPARTMENT OF PATHOLOGY AND GENOMIC MEDICINE Protein 5.8 (L) 6.3 - 8.3 g/dL [facility] DEPARTMENT OF Comment: PATHOLOGY AND GENOMIC [place] 4.6-7.0 g/dL MEDICINE 1 week 4.4-7.6 g/dL 7 months-1year5.1-7.3 g/dL 1-2 years5.6-7.5 g/dL >3 years6.0-8.0 g/dL 18-150 6.3-8.3 g/dL Albumin 1.9 (L) 3.5 - 5.0 g/dL [facility] DEPARTMENT OF PATHOLOGY AND GENOMIC MEDICINE A/G ratio 0.5 (L) 0.7 - 3.8 [facility] DEPARTMENT OF PATHOLOGY AND GENOMIC MEDICINE Alkaline phosphatase 53 35 - 104 U/L [facility] DEPARTMENT OF PATHOLOGY AND GENOMIC MEDICINE AST 25 10 - 35 U/L [facility] DEPARTMENT OF PATHOLOGY AND GENOMIC MEDICINE ALT 24 5 - 50 U/L [facility] DEPARTMENT OF PATHOLOGY AND GENOMIC MEDICINE Total bilirubin 0.3 0.0 - 1.2 mg/dL [facility] DEPARTMENT OF PATHOLOGY AND GENOMIC MEDICINE Specimen Plasma specimen Performing Organization Address City/[facility] Vegas[facility] Phone Number [facility] PATHOLOGY AND [address] [place] [id number] GENOMIC MEDICINE Manual differential (11/05/2017 4:15 AM CDT)Only the most recent of2 resultswithin the time period is included. Manual differential PERFORMED [facility] DEPARTMENT OF PATHOLOGY AND GENOMIC MEDICINE Neutrophils 74.0 (H) 39.0 - 69.0 % [facility] DEPARTMENT OF PATHOLOGY AND GENOMIC MEDICINE Lymphocytes 19.0 (L) 25.0 - 45.0 % [facility] DEPARTMENT OF PATHOLOGY AND GENOMIC MEDICINE Monocytes 4.0 0.0 - 10.0 % [facility] DEPARTMENT OF PATHOLOGY AND GENOMIC MEDICINE Eosinophils 2.0 0.0 - 5.0 % [facility] DEPARTMENT OF PATHOLOGY AND GENOMIC MEDICINE Basophils 0.0 0.0 - 1.0 % [facility] DEPARTMENT OF PATHOLOGY AND GENOMIC MEDICINE Metamyelocytes 0 % [facility] DEPARTMENT OF PATHOLOGY AND GENOMIC MEDICINE Promyelocytes 0 % [facility] DEPARTMENT OF PATHOLOGY AND GENOMIC MEDICINE Plasma cells 1 % [facility] DEPARTMENT OF PATHOLOGY AND GENOMIC MEDICINE Platelet slide review Dafne adequate [facility] DEPARTMENT OF PATHOLOGY AND GENOMIC MEDICINE Performing Organization Address City/[facility] Vegas[facility] Phone Number [facility] DEPARTMENT PATHOLOGY AND [address] [place] [phone] [employer] [facility] Cv ship laborer procedure (11/03/2017 11:14 AM CDT) Narrative Performed At SURGEON: MICHELLE Kebede MD. D[place] SEA DIVER: Lucero Dunbar MD. PREOPERATIVE DIAGNOSES: 1.Acute non-ST elevation myocardial infarction. 2.Atherosclerotic vascular disease of the [place] coronaries. POSTOPERATIVE DIAGNOSES: 1.Acute non-ST elevation myocardial infarction. 2.Atherosclerotic vascular disease of the [place] coronaries. TITLE OF OPERATION: 1.Left heart catheterization, selective coronary arteriogram left ventricular pressure study. 2.Percutaneous transluminal coronary angioplasty without stenting to the left anterior descending coronary. 3.Right femoral angiogram. 4.Percutaneous closure device with Perclose ProGlide system. ANESTHESIA: Conscious sedation with Versed and fentanyl. ESTIMATED BLOOD LOSS: 10 mL. COMPLICATIONS: None. OPERATIVE COURSE: After informed consent was obtained from the patient with full knowledge of her pre-existing renal insufficiency, the patient was taken to the cardiac catheterization laboratory and placed on the cath table.The right groin was cleaned and prepared in the usual fashion.She then received her initial bolus of sedation with Versed and fentanyl.She was continuously monitored by myself and the circulating nurse including end-tidal CO2, oxygenation, blood pressure, heart rate and respirations.She tolerated this quite well. The right groin was entered without difficulty using a standard 18-gauge AMC needle and 4-Faroese arterial sheath inserted for access.In sequential fashion, JL4 and 3DRC catheters were utilized to visualize the coronary arteries in appropriate orthogonal views.The left ventricular pressures were also taken but no left ventriculogram was performed. The studies were reviewed and showed a very short left main in the codominant system.The proximal LAD was heavily calcified with a 90% stenosis in the proximal aspect of the previously placed stent.More distally, there was diffuse calcified plaque and at the apex there was an 80% to 90% focal stenosis. The diagonals were also diffusely diseased.The circumflex OM1 had a long area of 75% to 85% stenosis of her proximal 3 to 3.5 cm of the vessel.The circumflex posterior descending had at least four branches all of which were patent without hemodynamically significant disease.The RCA was basically nondominant.End-diastolic pressure was noted to be 24 mmHg. After carefully considering her clinical situation and the necessity for an upcoming open reduction and internal fixation of her left hip and left wrist fracture, I elected to proceed with PTCA of the vessel.The 4-Faroese sheath was upsized with 6-Faroese.Utilizing a 6-Faroese XB LAD 3.5 guide, the left anterior descending was selectively cannulated.The patient received Angiomax with ACT noted to be greater than 230 prior to wire passage.The lesion was successfully crossed utilizing 0.014 Hi-Torque floppy extra support exchange length wire and PTCA was accomplished with 2.5 and 3.0 mm PTCA balloons.The end result was 20% residual stenosis.HALI 3 flow, no dissection.I elected to leave the obtuse marginal alone for future intervention. The right femoral artery was then injected with 2 mL of contrast showing proper placement of the arteriotomy.The vessel was then closed with a 6-Faroese Perclose ProGlide system.The patient tolerated the procedure well and was transferred to the PACU for recovery.It is anticipated that her orthopedic surgery will be done next week.She will be hydrated over the weekend and we will watch for worsening of her preexisting renal insufficiency.The total contrast utilized was 50 mL of Visipaque. Performing Organization Address City/State/Zipcode Phone Number [facility] [address] [place] [address] Continuous EEG monitoring (10/31/2017 9:41 AM CDT) Narrative Performed At CONTINUOUS VIDEO-EEG MONITORING REPORT Patient Name: Viri Jefferson Date of : 1955 Gender: female Start Date: 10/31/17 Start Time: 00:00 End Date: 10/31/17 End Time: 8:56 Indication Seizures Technical Summary Technique:Modified international 10/20 system of EEG electrode placement was used. Visual Analysis of EEG-Video Monitoring:This electroencephalogram was recorded simultaneously with video throughout the monitoring. The EEG was visually inspected and analyzed for characterization of the background activity in all awake and sleep states, abnormal focal and generalized features, and intraictal and ictal epileptiform activity. Electrical seizure activity was correlated with the patients clinical activity recorded on video and video captured clinical events were correlated with simultaneously recorded EEG activity. Computer Analysis of EEG Waveforms:The EEG underwent continuous computerized digital spectral analysis, which consisted of real time detection of electrical events that could be considered epileptiform. All electrographic events identified by the detection program were visually inspected in order to assess the waveform characteristics and significance of these electrographic events. All intraictal and ictal epileptiform events are described further below with additional details of the visual analysis of the EEG. Events detected by computer analysis that were not determined by visual analysis to be epileptiform were considered to be myogenic, biologic, mechanical, or electrical artifact in origin. Only computer detected events that have been verified by visual inspection to be interictal or ictal epileptiform discharges are reported below and considered in the final report of this monitoring study. Findings Awake Recordings:The occipital dominant rhythm is 5-6 Hz. 4-5 Hz and 1.5-3 Hz activity is present in all regions. 18-22 Hz activity was present in all regions. Diphasic and Triphasic sharp wave discharges were recorded in the frontal central regions. Sleep Recording:No epileptiform activity was recorded. Hyperventilation: Was not performed. Photic Stimulation: Was not performed. Impression:The findings are consistent with a diffuse disturbance in brain function which is most likely metabolic or ischemic hypoxic in etiology. No seizures occurred. ICD-10 Code: R569 This study was interpreted by Dr. Briana Becker. I reviewed the entire recording with him and agree with the interpretation. Carl Miller MD Estimated GFR (10/31/2017 1:15 AM CDT)Only the most recent of9 resultswithin the time period is included. GFR Non Af Amer 19 (A) mL/min/1.73 m2 [facility] DEPARTMENT OF PATHOLOGY AND GENOMIC MEDICINE GFR Af Amer 23 (A) mL/min/1.73 m2 [facility] DEPARTMENT OF Comment: PATHOLOGY AND GENOMIC Chronic [...] specimen Performing Organization Address City/State/Zipcode Phone Number [facility] DEPARTMENT OF PATHOLOGY AND [address] [place] [address] [employer] Vitamin D 25 hydroxy level (10/31/2017 12:40 AM CDT)Only the most recent of2 resultswithin the time period is included. Vitamin D, 25-hydroxy 25.0 (L) 30.0 - 150.0 [facility] DEPARTMENT OF Comment: ng/mL PATHOLOGY AND GENOMIC [...] alternative methods. Specimen Blood Narrative Performed At [facility] results called to and read back by [facility] DEPARTMENT OF PATHOLOGY AND GENOMIC FABIAN GALLARDO/Bob(name/location) MEDICINE at10/31/201702:03 (date/time) by KISHA. Performing Organization Address City/State/Zipcode Phone Number [facility] DEPARTMENT OF PATHOLOGY AND [address] [place] [address] [facility] CBC hemogram (10/31/2017 12:40 AM CDT) WBC 3.92 (L) 4.50 - 11.00 k/uL [facility] DEPARTMENT OF PATHOLOGY AND GENOMIC MEDICINE RBC 2.76 (L) 4.20 - 5.50 m/uL [facility] DEPARTMENT OF PATHOLOGY AND GENOMIC MEDICINE HGB 8.7 (L) 12.0 - 16.0 g/dL [facility] DEPARTMENT OF PATHOLOGY AND GENOMIC MEDICINE HCT 27.7 (L) 37.0 - 47.0 % [facility] DEPARTMENT OF PATHOLOGY AND GENOMIC MEDICINE MCV 100.4 (H) 82.0 - 100.0 fL [facility] DEPARTMENT OF PATHOLOGY AND GENOMIC MEDICINE MCH 31.5 27.0 - 34.0 pg [facility] DEPARTMENT OF PATHOLOGY AND GENOMIC MEDICINE MCHC 31.4 31.0 - 37.0 g/dL [facility] DEPARTMENT OF PATHOLOGY AND GENOMIC MEDICINE RDW - SD 46.4 37.0 - 55.0 fL [facility] DEPARTMENT OF PATHOLOGY AND GENOMIC MEDICINE MPV 11.4 8.8 - 13.2 fL [facility] DEPARTMENT OF PATHOLOGY AND GENOMIC MEDICINE Platelet count 140 (L) 150 - 400 k/uL [facility] DEPARTMENT OF PATHOLOGY AND GENOMIC MEDICINE Nucleated RBC 0.00 /100 WBC [facility] DEPARTMENT OF PATHOLOGY AND GENOMIC MEDICINE Performing Organization Address City/State/Zipcode Phone Number [facility] DEPARTMENT OF PATHOLOGY AND [address] [place] [address] [facility] Continuous EEG monitoring (10/31/2017 12:19 AM CDT) Addenda Addendum by Carl Miller MD on 10/31/2017 11:01 AM Start Date: 10/30/17 Start Time: 12:53 End Date: 10/30/17 End Time: 23:59 Narrative Performed At CONTINUOUS VIDEO-EEG MONITORING REPORT Patient Name: Viri Jefferson Date of : 1955 Gender: female Start Date: 10/30/17 Start Time: 12:53 End Date: 11/07/17 End Time: 23:59 Indication Seizures Technical Summary Technique:Modified international 10/20 system of EEG electrode placement was used. Visual Analysis of EEG-Video Monitoring:This electroencephalogram was recorded simultaneously with video throughout the monitoring. The EEG was visually inspected and analyzed for characterization of the background activity in all awake and sleep states, abnormal focal and generalized features, and intraictal and ictal epileptiform activity. Electrical seizure activity was correlated with the patients clinical activity recorded on video and video captured clinical events were correlated with simultaneously recorded EEG activity. Computer Analysis of EEG Waveforms:The EEG underwent continuous computerized digital spectral analysis, which consisted of real time detection of electrical events that could be considered epileptiform. All electrographic events identified by the detection program were visually inspected in order to assess the waveform characteristics and significance of these electrographic events. All intraictal and ictal epileptiform events are described further below with additional details of the visual analysis of the EEG. Events detected by computer analysis that were not determined by visual analysis to be epileptiform were considered to be myogenic, biologic, mechanical, or electrical artifact in origin. Only computer detected events that have been verified by visual inspection to be interictal or ictal epileptiform discharges are reported below and considered in the final report of this monitoring study. Findings Awake Recordings: The occipital dominant rhythm is 5-6 Hz. 4-5 Hz and 1.5-3 Hz activity is present in all regions. 18-22 Hz activity was present in all regions. Diphasic and Triphasic sharp wave discharges were recorded in the frontal central regions. Sleep Recording: No epileptiform activity was recorded. Hyperventilation: Was not performed. Photic Stimulation: Was not performed. Impression: The findings are consistent with a diffuse disturbance in brain function which is most likely metabolic or ischemic hypoxic in etiology. No seizures occurred. ICD-10 Code: R569 EEG (routine) - Baseline EEG (10/30/2017 1:09 PM CDT) Narrative Performed At EEG AWAKE AND DROWSY - Baseline for Bedside EEG Date of Service: 10/30/17 Awake Recordings: The occipital dominant rhythm is 5-6 Hz. 4-5 Hz and 1.5-3 Hz activity is present in all regions. 18-22 Hz activity was present in all regions. Diphasic and Triphasic sharp wave discharges were recorded in the frontal central regions. Sleep Recording: No sleep was recorded. Hyperventilation: Was not performed. Photic Stimulation: Was not performed. Impression: The findings are consistent with a diffuse disturbance in brain function which is most likely metabolic or ischemic hypoxic in etiology. No seizures occurred. ICD-10 Code: R569 Blood culture, aerobic & anaerobic (10/30/2017 9:15 AM CDT)Only the most recent of3 resultswithin the time period is included. Blood culture isolate No growth after 5 days of incubation. [facility] DEPARTMENT OF Comment: PATHOLOGY AND GENOMIC Specimen Information MEDICINE Specimen Source: Blood Specimen Site: Right Antecubital Specimen Blood Performing Organization Address City/State/Zipcode Phone Number [facility] DEPARTMENT OF PATHOLOGY AND [address] [place] [address] Head Wo Contrast (10/29/2017 8:13 PM CDT) Narrative Performed At EXAMINATION:CT HEAD WO CONTRAST [facility] CLINICAL HISTORY:encephalopathyrule out stroke or other lesion COMPARISON:None. TECHNIQUE: Noncontrast head CT performed using radiation dose reduction techniques.Technical factors are evaluated and adjusted to ensure appropriate moderation of exposure.Automated dose management technology is applied to adjust radiation exposure while achieving a diagnostic quality image. FINDINGS: Patient contracted body positioning limits the evaluation. No evidence of acute intracranial hemorrhage, mass, mass effect, midline shift, or acute infarct. Few areas of subcortical and periventricular white matter hypoattenuation likely reflecting mild chronic microvascular ischemic changes with possiblechronic lacunar infarct in the left thalamus. Ventricles and sulci are normal in appearance for age. Arteriosclerosis of the cavernous and paraclinoid internal carotid arteries. Basal cisterns are clear. Calvarium is intact. Orbits are unremarkable. No significant sinus inflammatory changes.Mastoid air cells are clear. IMPRESSION: 1. No CT evidence of acute intracranial abnormality. [facility]-[id number] Procedure Note Interface, Radiology Results Incoming - 10/29/2017 8:22 PM CDT EXAMINATION: CT HEAD WO CONTRAST CLINICAL HISTORY: encephalopathy rule out stroke or other lesion COMPARISON: None. TECHNIQUE: Noncontrast head CT performed using radiation dose reduction techniques. Technical factors are evaluated and adjusted to ensure appropriate moderation of exposure. Automated dose management technology is applied to adjust radiation exposure while achieving a diagnostic quality image. FINDINGS: Patient contracted body positioning limits the evaluation. No evidence of acute intracranial hemorrhage, mass, mass effect, midline shift , or acute infarct. Few areas of subcortical and periventricular white matter hypoattenuation likely reflecting mild chronic microvascular ischemic changes with possible chronic lacunar infarct in the left thalamus. Ventricles and sulci are normal in appearance for age. Arteriosclerosis of the cavernous and paraclinoid internal carotid arteries. Basal cisterns are clear. Calvarium is intact. Orbits are unremarkable. No significant sinus inflammatory changes. Mastoid air cells are clear. IMPRESSION: 1. No CT evidence of acute intracranial abnormality. [facility]-[id number] Performing Organization Address City/State/Zipcode Phone Number [facility] [address] [place] [address] Echocardiogram complete w contrast and 3D if needed (10/29/2017 4:15 PM CDT) Narrative Performed At [facility] Echocardiography Report [address] [place] [address] Pat.Name:VIRI JEFFERSON Pat.ID:[id number] .Date: 10/29/2017Refer.MD:ROSA LOPEZ MD Exam Time: 2:53:00 PMStudy Type:Routine Echo Height:65inWeight: 176lb BSA: 1.88 m2 DOBAge:1955,62Y Sex: FEMALEBP:114/58 HR:90 bpmSonogrphr: Kavya Merritt RDCS Pat. Stat.:Inpatient Room:A938-A Study Status:Final Echo Event ID:[id number] Order ID:[id number] Reason for Study:Abnormal Heart Sound; Myocardial Ischemia/ Infarction - Eval of a patient without chest pain but with other features of an ischemic equivalent or laboratory markers indicative of ongoing IA; Preop History / Clinical:Diabetes, Hypertension, IA, Rheumatoid Arthritis Procedures:2D Echo, Colorflow Doppler, Portable, Stat, Intravenous Optison Contrast Race:C SUMMARY: LV EF is normal. Regional wall motion abnormalities present at mid septum. RV systolic function is normal. LA size is normal. LV filling pressure is normal. FINDINGS: LV: LV size is normal. LV EF is normal. Regional wall motion abnormalitiespresent. EF=60% RV: RV size is normal. RV systolic function is normal. LA: LA size is normal. RA: RA size is normal. AO: Aortic root diameter is normal. JOSELO: No pericardial effusion. AV: No structural AV abnormalities noted. A trace of aortic regurgitation. MV: Thickened and/or calcified chordae. PV: No structural PV abnormalities noted. TV: No structural TV abnormalities noted. Kinsey: LV relaxation is impaired. LV filling pressure is normal. Other:Insufficient TR jet to estimate PA systolic pressure. MEASUREMENTS: 2D Parasternal Long Smoot Ao An1.8 cmLV%fs 23.8 % Ao Rtd 2.3 cmIndex1.2 cm/m IVSd 0.8 cm LVOT 1.8 cmLVPWd0.8 cm LA Ds4.3 cmLV Yafy096.5 g(87-129) LVIDd5.5 cmIndex2.9 cm/m LVM Index 84.3 g/m2 LVIDs4.2 cmRWT0.3 LV EF SinglePlane LV Ad 42.2 cm2(9.5-22.3) LVESV 66.2 ml Index35.2 ml/m NQOWA873.7 ml (59-136) Index88.7 ml/m LV SV100.5 ml LV As 25.6 cm2(4-11.6) LV EF 60.3 %(55-75) LA Sng Plane LA Area 17.4 cm2(8.8-23.4) LA Vol46.2 ml Index24.6 ml/m LA LngAx 5.7 cm RA Sng Plane RA Area 10.3 cm2(8.3-19.5) RA Vol23.2 ml Index12.4 ml/m RA LngAx 4.2 cm WALL MOTION: RESTING WALL MOTION: Mid Anteroseptal wall is akinetic. Normal in all other hernandez. Wall Index=1.1 Signed 10/29/2017 07:01 PM Rober Morocho M.D. Procedure Note Interface, Radiology Results In - 10/29/2017 7:01 PM CDT Echocardiography Report [address] [place] [address] Pat.Name: VIRI JEFFERSON Pat.ID: [id number] .Date: 10/29/2017 Refer.MD: ROSA LOPEZ MD Exam Time: 2:53:00 PM Study Type:Routine Echo Height: 65in Weight: 176lb BSA: 1.88 m2 Age: 7 1955,62Y Sex: FEMALE BP: 114/58 HR: 90 bpm Sonogrphr: Kavya Merritt RDCS Pat. Stat.:Inpatient Room: [facility] Study Status:Final Echo Event ID:[id number] Order ID: [id number] Reason for Study:Abnormal Heart Sound; Myocardial Ischemia/ Infarction - Eval of a patient without chest pain but with other features of an ischemic equivalent or laboratory markers indicative of ongoing IA; Preop History / Clinical:Diabetes, Hypertension, IA, Rheumatoid Arthritis Procedures:2D Echo, Colorflow Doppler, Portable, Stat, Intravenous Optison Contrast Race: C SUMMARY: LV EF is normal. Regional wall motion abnormalities present at mid septum. RV systolic function is normal. LA size is normal. LV filling pressure is normal. FINDINGS: LV: LV size is normal. LV EF is normal. Regional wall motion abnormalities present. EF=60% RV: RV size is normal. RV systolic function is normal. LA: LA size is normal. RA: RA size is normal. AO: Aortic root diameter is normal. JOSELO: No pericardial effusion. AV: No structural AV abnormalities noted. A trace of aortic regurgitation. MV: Thickened and/or calcified chordae. PV: No structural PV abnormalities noted. TV: No structural TV abnormalities noted. Kinsey: LV relaxation is impaired. LV filling pressure is normal. Other: Insufficient TR jet to estimate PA systolic pressure. MEASUREMENTS: 2D Parasternal Long Smoot Ao An 1.8 cm LV%fs 23.8 % Ao Rtd 2.3 cm Index 1.2 cm/m IVSd 0.8 cm LVOT 1.8 cm LVPWd 0.8 cm LA Ds 4.3 cm LV Mass 158.5 g (87-129) LVIDd 5.5 cm Index 2.9 cm/m LVM Index 84.3 g/m2 LVIDs 4.2 cm RWT 0.3 LV EF SinglePlane LV Ad 42.2 cm2 (9.5-22.3) LVESV 66.2 ml Index 35.2 ml/m LVEDV 166.7 ml (59-136) Index 88.7 ml/m LV SV 100.5 ml LV As 25.6 cm2 (4-11.6) LV EF 60.3 % (55-75) LA Sng Plane LA Area 17.4 cm2 (8.8-23.4) LA Vol 46.2 ml Index 24.6 ml/m LA LngAx 5.7 cm RA Sng Plane RA Area 10.3 cm2 (8.3-19.5) RA Vol 23.2 ml Index 12.4 ml/m RA LngAx 4.2 cm WALL MOTION: RESTING WALL MOTION: Mid Anteroseptal wall is akinetic. Normal in all other hernandez. Wall Index=1.1 Signed 10/29/2017 07:01 PM Rober Morocho M.D. Performing Organization Address [facility] VegasLeadiD Phone Number [facility] [address] [place] [address] B natriuretic peptide (10/29/2017 1:15 PM CDT)Only the most recent of3 resultswithin the time period is included. BNP 468 (H) 0 - 100 pg/mL [facility] DEPARTMENT OF PATHOLOGY AND GENOMIC MEDICINE Specimen Blood Performing Organization Address [facility] Phone Number [facility] DEPARTMENT OF PATHOLOGY AND [address] [place] [address] [facility] MEDICINE Creatine kinase, total (CPK) (10/29/2017 12:52 PM CDT) Creatine kinase 376 (H) 26 - 192 U/L [facility] DEPARTMENT OF PATHOLOGY AND [employer] MEDICINE Specimen Plasma specimen Performing Organization Address [facility] [facility]/State/[facility] Phone Number [facility] DEPARTMENT OF PATHOLOGY AND [address] [place] [phone] GENOMIC MEDICINE Sedimentation rate (10/29/2017 8:57 AM CDT)Only the most recent of2 resultswithin the time period is included. Sedimentation rate 87 (H) 0 - 20 mm/hr [facility] DEPARTMENT OF PATHOLOGY AND GENOMIC MEDICINE Specimen Blood Performing Organization Address [facility] Phone Number [facility] DEPARTMENT OF PATHOLOGY AND [address] [place] [address] MEDICINE Anti-neutrophilic cytoplasmic Abs panel (10/29/2017 8:56 AM CDT) ANCA screen Negative Negative [facility] DEPARTMENT OF PATHOLOGY AND GENOMIC MEDICINE Specimen Blood Performing Organization Address [facility] Phone Number [facility] DEPARTMENT OF PATHOLOGY AND [address] [place] [address] Serum electrophoresis (10/29/2017 8:56 AM CDT) Protein 6.5 6.3 - 8.3 g/dL [facility] DEPARTMENT OF Comment: PATHOLOGY AND [place] 4.6-7.0 g/dL GENOMIC MEDICINE 1 week 4.4-7.6 g/dL 7 months-1year5.1-7.3 g/dL 1-2 years5.6-7.5 g/dL >3 years6.0-8.0 g/dL 18-150 6.3-8.3 g/dL SPE albumin 3.65 (L) 4.00 - 5.30 [facility] DEPARTMENT OF g/dL PATHOLOGY AND GENOMIC MEDICINE SPE alpha 1 0.29 (H) 0.10 - 0.25 [facility] DEPARTMENT OF g/dL PATHOLOGY AND GENOMIC MEDICINE SPE alpha 2 0.96 (H) 0.58 - 0.84 [facility] DEPARTMENT OF g/dL PATHOLOGY AND GENOMIC MEDICINE SPE beta 0.85 0.50 - 1.10 [facility] DEPARTMENT OF g/dL PATHOLOGY AND GENOMIC MEDICINE SPE gamma 0.76 0.60 - 1.30 [facility] DEPARTMENT OF g/dL PATHOLOGY AND GENOMIC MEDICINE SPE extended See Comment [facility] DEPARTMENT OF interpretation Comment: PATHOLOGY AND Albumin is decreased while the concentrations of alpha-1 globulins and GENOMIC MEDICINE alpha-2 globulins are increased indicating an acute phase response to infection, inflammation or tissue injury. SPE interpretation See CommentComment: [facility] DEPARTMENT OF Galina Mahoney MD; Bigg Singh PATHOLOGY AND Seb, PhD; Dee [employer] MEDICINE MD Lukasz Specimen Serum Performing Organization Address City/[facility]/Zipcode Phone Number [facility] DEPARTMENT OF PATHOLOGY AND [address] [place] [address] [facility] Thyroid stimulating hormone (10/29/2017 4:00 AM CDT)Only the most recent of2 resultswithin the time period is included. TSH 1.59 0.27 - 4.20 uIU/mL [facility] DEPARTMENT OF PATHOLOGY AND [facility] Specimen Plasma specimen Performing Organization Address City/[facility]/Zipcode Phone Number [facility] DEPARTMENT OF PATHOLOGY AND [address] [place] [phone] [facility] US Renal (10/28/2017 6:15 PM CDT) Narrative Performed At EXAMINATION:US RENAL [facility] CLINICAL HISTORY:Renal failureacute (kidney injury) COMPARISON:US renal dated 11/26/2015 TECHNIQUE:Ultrasound evaluation of the kidneys and bladder. Findings: The right kidney measures 10.9 cm in length with a cortical thickness of 1.2 cm. Mildly increased parenchymal echogenicity. No solid mass. No stone. No hydronephrosis. The left kidney measures 12.1 cm in length with a cortical thickness of 1.4 cm. Mildly increased parenchymal echogenicity. No solid mass. There is a nonobstructive 10 x 8 x 7 mm echogenic calculus in the lower pole. No hydronephrosis. The bladder was not visualized. IMPRESSION: Parenchymal features of mild chronic medical renal disease. Nonobstructive left renal calculus. No right renal calculus. No hydronephrosis. [facility]-[id number] Procedure Note [facility], Radiology Results Incoming - 10/28/2017 7:22 PM CDT EXAMINATION: US RENAL CLINICAL HISTORY: Renal failure acute (kidney injury) COMPARISON: US renal dated 11/26/2015 TECHNIQUE: Ultrasound evaluation of the kidneys and bladder. Findings: The right kidney measures 10.9 cm in length with a cortical thickness of 1.2 cm. Mildly increased parenchymal echogenicity. No solid mass. No stone. No hydronephrosis. The left kidney measures 12.1 cm in length with a cortical thickness of 1.4 cm. Mildly increased parenchymal echogenicity. No solid mass. There is a nonobstructive 10 x 8 x 7 mm echogenic calculus in the lower pole. No hydronephrosis. The bladder was not visualized. IMPRESSION: Parenchymal features of mild chronic medical renal disease. Nonobstructive left renal calculus. No right renal calculus. No hydronephrosis. [facility]-[id number] Performing Organization Address City/State/Zipcode Phone Number YISEL [address] [place] [address] CT Lower Extremity Wo Contrast Left (10/28/2017 4:51 PM CDT) Narrative Performed At EXAMINATION:CT LOWER EXTREMITY WO CONTRAST LEFT [facility] CLINICAL HISTORY:Fracturefemur COMPARISON:Radiographs left femur dated 10/28/[address] left lower extremity dated 11/25/2015 FINDINGS: There is severe generalized bony demineralization. There is an acute, minimally impacted, fracture through the left femoral intertrochanteric region with mild comminution and inferomedial displacement of the lesser trochanteric fragments. The left femoral head and head/neck junction appear intact. The left femoral head remains seated within the left acetabulum. Patient is status post longitudinal plate and multi screw fixation of the left femoral diametaphysis. The hardware appears grossly intact. There is patchy sclerosis within the distal femur with areas of incomplete osseous union. The visualized portions of the left tibia, fibula, and patella appear grossly intact. There is grossly preserved alignment at the left knee joint. There is no aggressive-appearing osteolytic or osteoblastic lesion within the visualized skeleton. There is mild swelling of the soft tissues of the left thigh. There is atherosclerotic calcification of the vasculature. IMPRESSION: Acute left intertrochanteric femoral fracture, as described above. No dislocation of the left hip. Grossly intact left femoral diametaphyseal internal fixation hardware. [facility]-[id number] Procedure Note Interface, Radiology Results Incoming - 10/28/2017 5:38 PM CDT EXAMINATION: CT LOWER EXTREMITY WO CONTRAST LEFT CLINICAL HISTORY: Fracture femur COMPARISON: Radiographs left femur dated 10/28/[address] left lower extremity dated 11/25/2015 FINDINGS: There is severe generalized bony demineralization. There is an acute, minimally impacted, fracture through the left femoral intertrochanteric region with mild comminution and inferomedial displacement of the lesser trochanteric fragments. The left femoral head and head/neck junction appear intact. The left femoral head remains seated within the left acetabulum. Patient is status post longitudinal plate and multi screw fixation of the left femoral diametaphysis. The hardware appears grossly intact. There is patchy sclerosis within the distal femur with areas of incomplete osseous union. The visualized portions of the left tibia, fibula, and patella appear grossly intact. There is grossly preserved alignment at the left knee joint. There is no aggressive-appearing osteolytic or osteoblastic lesion within the visualized skeleton. There is mild swelling of the soft tissues of the left thigh. There is atherosclerotic calcification of the vasculature. IMPRESSION: Acute left intertrochanteric femoral fracture, as described above. No dislocation of the left hip. Grossly intact left femoral diametaphyseal internal fixation hardware. [facility]-[id number] Performing Organization Address [facility] Phone Number [facility] [address] [place] [address] XR Chest 1 Vw (10/28/2017 3:48 PM CDT) Narrative Performed At EXAMINATION:XR CHEST 1 VW [facility] CLINICAL HISTORY:Rib fx suspectedpost trauma COMPARISON:. IMPRESSION: There is cardiomegaly mediastinal widening.Pulmonary vasculature is mildly congested bilaterally with no significant infiltrate.There some patchy atelectasis at the left lung base.Spotty demineralization in the bones of the left humerus are noted. Multiple right ribs are identified with callus formation. [facility]-[id number] Procedure Note Interface, Radiology Results Incoming - 10/28/2017 4:15 PM CDT EXAMINATION: XR CHEST 1 VW CLINICAL HISTORY: Rib fx suspected post trauma COMPARISON: . IMPRESSION: There is cardiomegaly mediastinal widening. Pulmonary vasculature is mildly congested bilaterally with no significant infiltrate. There some patchy atelectasis at the left lung base. Spotty demineralization in the bones of the left humerus are noted. Multiple right ribs are identified with callus formation. [id number] Performing Organization Address [facility] Phone Number [facility] [address] [place] [address] XR Ribs 2 Vw Left (10/28/2017 3:47 PM CDT) Narrative Performed At EXAMINATION:XR RIBS 2 VW LEFT [facility] CLINICAL HISTORY:Rib fx suspectedpost trauma TECHNIQUE: Left ribs COMPARISON:None. IMPRESSION: 1.Cortical irregularity involving the lateral eighth and ninth ribs suspicious for nondisplaced fractures. There is also sclerotic change involving the lateral 10th rib likely relating to a prior healed fracture. 2.Osseous structures are demineralized. 3.Chronic healed fracture involving the proximal left humerus. 4.Left lower lobe atelectasis. No pneumothorax. [facility]-[id number] Procedure Note [facility], Radiology Results Incoming - 10/28/2017 3:55 PM CDT EXAMINATION: XR RIBS 2 VW LEFT CLINICAL HISTORY: Rib fx suspected post trauma TECHNIQUE: Left ribs COMPARISON: None. IMPRESSION: 1. Cortical irregularity involving the lateral eighth and ninth ribs suspicious for nondisplaced fractures. There is also sclerotic change involving the lateral 10th rib likely relating to a prior healed fracture. 2. Osseous structures are demineralized. 3. Chronic healed fracture involving the proximal left humerus. 4. Left lower lobe atelectasis. No pneumothorax. [facility]-[id number] Performing Organization Address [facility] Phone Number [facility] [address] [place] [address] Urine protein electrophoresis, random (10/28/2017 12:16 PM CDT) Urine protein concentration 420 mg/dL [facility] DEPARTMENT OF PATHOLOGY AND GENOMIC MEDICINE UPE albumin 75.9 % [facility] DEPARTMENT OF PATHOLOGY AND GENOMIC MEDICINE UPE globulin 24.1 % [facility] DEPARTMENT OF PATHOLOGY AND GENOMIC MEDICINE UPE extended interpretation See Comment [facility] DEPARTMENT OF Comment: PATHOLOGY AND GENOMIC An abnormal random urine protein study with proteinuria equivalent to 4.2 MEDICINE g/L, which is in the nephrotic syndrome range. The proteinuria is in a glomerular pattern. UPE interpretation See CommentComment: [facility] DEPARTMENT OF Galina Mahoney MD; Bigg PATHOLOGY AND GENOMIC Seb, PhD; Dee Lal MD Specimen Urine Performing Organization Address [facility] Phone Number [facility] DEPARTMENT OF PATHOLOGY AND [address] [place] [phone] [facility] Relampago lambda free light chain with ratio (10/28/2017 12:16 PM CDT) Relampago light chain 105.54 (H) 3.30 - 19.40 mg/L [facility] DEPARTMENT OF PATHOLOGY AND GENOMIC MEDICINE Lambda light chain 41.87 (H) 5.70 - 26.30 mg/L [facility] DEPARTMENT OF PATHOLOGY AND GENOMIC MEDICINE Rel[place] lambda ratio 2.52 (H) 0.26 - 1.65 [facility] DEPARTMENT OF PATHOLOGY AND GENOMIC MEDICINE Specimen Plasma specimen Performing Organization Address [facility] Phone Number [facility] DEPARTMENT OF PATHOLOGY AND [address] [place] [address] C3 complement component (10/28/2017 12:16 PM CDT) C3 complement 131 90 - 180 mg/dL [facility] DEPARTMENT OF PATHOLOGY AND [facility] Specimen Plasma specimen Performing Organization Address [facility] Phone Number [facility] DEPARTMENT OF PATHOLOGY AND [address] [place] [address] C4 complement component (10/28/2017 12:16 PM CDT) C4 complement 21 10 - 40 mg/dL [facility] DEPARTMENT OF PATHOLOGY AND [facility] Specimen Plasma specimen Performing Organization Address [facility] Phone Number [facility] DEPARTMENT OF PATHOLOGY AND [address] [place] [address] Hemoglobin A1c (10/28/2017 4:15 AM CDT)Only the most recent of2 resultswithin the time period is included. Hemoglobin A1C 7.9 (H) 4.0 - 5.6 % [facility] DEPARTMENT OF PATHOLOGY Comment: AND [facility] HbA1c cutoffs for diagnosing diabetes: 4.0% - 5.6%=normal 5.7% - 6.4%=increased risk for diabetes (prediabetes) >=6.5%=diabetes Goals for glycemic control (ADA 2016) < 7.0%Target for non adults with diabetes. More or less stringent targets may be appropriate for individual patients. <7.5% Target for Children and adolescents with type 1 diabetes. Specimen Blood Performing Organization Address [facility] Phone Number [facility] DEPARTMENT OF PATHOLOGY AND [address] [place] [address] Transfuse platelets (10/25/2017 5:26 PM CDT)Only the most recent of3 resultswithin the time period is included.Transfuse RBC (10/25/2017 5:26 PM CDT )Only the most recent of3 resultswithin the time period is included.General sleep study (09/05/2017 6:21 AM CDT) Narrative Performed At General sleep study (08/01/2017 7:17 AM CDT) Narrative Performed At Vitamin D 1,25 dihydroxy level, serum (02/23/2017 3:40 PM ELEVATOR MECHANIC) Vit D, 1,25-Dihydroxy 28.50 18.00 - 78.00 [facility] DEPARTMENT OF Comment: pg/mL PATHOLOGY AND GENOMIC This test was developed and its performance characteristics determined by MEDICINE the Department of Pathology and Genomic Medicine, [facility]. Serum 1,25 Dihydroxy Vitamin D is tested by LC-MS/MS. It has not been cleared or approved by FDA. The laboratory is regulated under CLIA as qualified to perform high-complexity testing. This test is used for clinical purposes. It should not be regarded as investigational or for research. Specimen Blood Narrative Performed At [facility] results called to and read back by [facility] DEPARTMENT OF PATHOLOGY AND GENOMIC NATHAN (name/location) MEDICINE at02/23/201717:34 (date/time) by [employer]. Unable to perform testing, specimen is HEMOLYZED.Recollect requested for K, AST (tests).FAXED TO [facility] ([phone]) (name/location) notified by [employer] (tech ID) at 02/23/201717:35 (date/time).Credit issued. Christina Kerr in office notified of a sample recollect for K,AST hemolyzed for testing 02/24/2017 10:47 LMID. Performing Organization Address City/State/Zipcode Phone Number [facility] DEPARTMENT OF PATHOLOGY AND [address] [place] [address] [employer] MEDICINE Urinalysis, automated with microscopy (02/23/2017 3:40 PM ELEVATOR MECHANIC) Color, UA Straw [facility] DEPARTMENT OF PATHOLOGY AND GENOMIC MEDICINE Appearance, UA Clear [facility] DEPARTMENT OF PATHOLOGY AND GENOMIC MEDICINE Specific gravity, UA 1.028 1.001 - 1.035 [facility] DEPARTMENT OF PATHOLOGY AND GENOMIC MEDICINE pH, UA 6.0 5.0 - 8.5 [facility] DEPARTMENT OF PATHOLOGY AND GENOMIC MEDICINE Protein, UA 3+ (A) Negative [facility] DEPARTMENT OF PATHOLOGY AND GENOMIC MEDICINE Glucose, UA 3+ (A) Negative [facility] DEPARTMENT OF PATHOLOGY AND GENOMIC MEDICINE Ketones, UA Negative Negative [facility] DEPARTMENT OF PATHOLOGY AND GENOMIC MEDICINE Bilirubin, UA Negative Negative [facility] DEPARTMENT OF PATHOLOGY AND GENOMIC MEDICINE Blood, UA Small (A) Negative [facility] DEPARTMENT OF PATHOLOGY AND GENOMIC MEDICINE Nitrite, UA Negative Negative [facility] DEPARTMENT OF PATHOLOGY AND GENOMIC MEDICINE Urobilinogen, UA <2.0 <2.0 [facility] DEPARTMENT OF PATHOLOGY AND GENOMIC MEDICINE Leukocyte esterase, UA Negative Negative [facility] DEPARTMENT OF PATHOLOGY AND GENOMIC MEDICINE Epithelial cells, UA 2 /HPF [facility] DEPARTMENT OF PATHOLOGY AND GENOMIC MEDICINE WBC, UA 4 0 - 4 /HPF [facility] DEPARTMENT OF PATHOLOGY AND GENOMIC MEDICINE RBC, UA 2 0 - 2 /HPF [facility] DEPARTMENT OF PATHOLOGY AND GENOMIC MEDICINE Bacteria, UA Few None seen [facility] DEPARTMENT OF PATHOLOGY AND GENOMIC MEDICINE Yeast, UA None seen [facility] DEPARTMENT OF PATHOLOGY AND GENOMIC MEDICINE Yeast with pseudohyphae, UA None seen [facility] DEPARTMENT OF PATHOLOGY AND GENOMIC MEDICINE Specimen Urine Performing Organization Address City/State/Zipcode Phone Number [facility] DEPARTMENT OF PATHOLOGY AND [address] [place] [phone] GENOMIC MEDICINE C-reactive protein (02/23/2017 3:40 PM ELEVATOR MECHANIC) CRP <0.30 0.00 - 0.50 mg/dL [facility] DEPARTMENT OF PATHOLOGY AND GENOMIC MEDICINE Specimen Plasma specimen Performing Organization Address City/State/[facility] Phone Number [facility] DEPARTMENT OF PATHOLOGY AND [address] [place] [phone] GENOMIC MEDICINE after 02/13/2017 Insurance Payer Benefit Plan / Group Subscriber ID Type Phone Address MEDICARE MEDICARE PART A AND B xxxxxxxxxx Medicare [place], [place] MEDICAID MEDICAID xxxxxxxxx Medicaid Advance Directives Patient has advance care planning documents, and code status on file. For more information, please contact:Cesar Harris[address] [place] [id number] Code Status Date Activated Date Inactivated Comments Full Code 10/28/2017 8:25 AM 11/17/2017 8:06 PM Code Status decision reached by: Patient Full Code 03/28/2016 9:59 PM 03/29/2016 5:04 PM Code Status decision reached by: Patient Full Code 11/24/2015 11:21 PM 11/28/2015 10:07 PM Code Status decision reached by: Patient Full Code 11/10/2015 1:00 PM 11/12/2015 5:40 PM Code Status decision reached by: Patient
--- NOTE | 2018-02-14 21:11 | RAD REPORT ---
EXAM DESCRIPTION: RAD - Hip Right 2 View - 02/14/2018 9:02 pm CLINICAL HISTORY: PAIN History of fall COMPARISON: No comparisons FINDINGS: Osteopenia is present. No acute fracture or dislocation of the right hip is seen. Vascular calcification is evident.
--- NOTE | 2018-02-14 21:12 | RAD REPORT ---
EXAM DESCRIPTION: RAD - Pelvis - 02/14/2018 9:02 pm CLINICAL HISTORY: PAIN History of fall COMPARISON: No comparisons FINDINGS: Extensive hardware is present in the proximal left femur. Evidence previous/old left virgen- pelvic fracture seen. No acute fractures demonstrated. The bones are osteopenic. Atherosclerosis.
--- NOTE | 2018-02-14 21:12 | RAD REPORT ---
EXAM DESCRIPTION: RAD - Chest Single View - 02/14/2018 9:02 pm CLINICAL HISTORY: COUGH Chest pain. COMPARISON: Chest Single View dated 08/02/2017; Abdomen Acute Series dated 10/21/2016; Chest Single Vie w dated 10/02/2016; Chest Pa And Lat (2 Views) dated 09/23/2015 FINDINGS: Portable technique limits examination quality. The lungs are grossly clear. The heart is upper limit of normal in size. No displaced fractures. IMPRESSION: No acute intrathoracic process suspected.
[2018-02-14] MEDS ORDERED: NA CHLORIDE 0.9% 1,000 ML ONE ×2 (21:30→22:03)
[2018-02-14 21:41] LABS: Absolute Lymphocytes (CBC) 1.1 K/uL (0.7-4.9); Absolute Monocytes 0.4 K/uL (0.1-1.3); Basophils % 0.7 % (0-1.3); Hematocrit 34.3 % (36.0-45.0); MPV 8.2 fL (7.6-11.3); Monocytes % 4.7 % (3.3-12.3); RBC Red Blood Cell Count 3.57 M/uL (3.86-4.86)
[2018-02-14 21:52] LABS: Protime INR 1.01
[2018-02-14] MEDS ORDERED: ONDANSETRON 4 MG/2 ML VIAL ONE (22:03)
[2018-02-14] MEDS ORDERED: FENTANYL CITR 100 MCG/2 ML ONE (22:03)
[2018-02-14 22:04] LABS: ALT/SGPT 17 U/L (12-78); AST/SGOT 18 U/L (15-37); Albumin 3.2 g/dL (3.4-5.0); Alkaline Phosphatase 83 U/L (45-117); BUN Blood Urea Nitrogen 45 mg/dL (7-18); Bicarbonate 22 mmol/L (21-32); Bilirubin Direct < 0.1 mg/dL (0-0.2); Bilirubin Total 0.2 mg/dL (0.2-1.0); Glucose Level 162 mg/dL (74-106); Lipase 158 U/L (73-393); Magnesium 2.1 mg/dL (1.8-2.4); NT PRO-BNP 13777 pg/mL (<125); Protein, Total 7.5 g/dL (6.4-8.2); Sodium Level 139 mmol/L (136-145); Troponin (Emerg Dept Use Only) 0.06 ng/mL (0.0-0.045)
[2018-02-14 22:10] LABS: Potassium 6.3 mmol/L (3.5-5.1)
--- NOTE | 2018-02-14 22:35 | EDPHYS ---
Physician Documentation [facility] Name: Viri Jefferson Age: 62 yrs Sex: Female : 1955 Arrival Date: 02/14/2018 Time: 20:32 Bed 6 Private MD: Out, [facility] ED Physician Rojas Mendoza HPI: 02/14 21:25 This 62 yrs old Female presents to ER via EMS with complaints of Hip Pain, hemanth Fall Injury. 21:25 The patient or guardian reports decreased range of motion, pain. that occurred at home, hemanth sustained from a fall, There is no obvious deformity. The complaints affect the pelvis. Onset: The symptoms/episode began/occurred 2 day(s) ago. Modifying factors: The symptoms are alleviated by nothing, the symptoms are aggravated by nothing. Associated signs and symptoms: Loss of consciousness: the patient experienced no loss of consciousness. Severity of symptoms: At their worst the symptoms were mild. The patient has not experienced similar symptoms in the past. Historical: - Allergies: 20:53 PENICILLINS; fc - Home Meds: 20:53 Plavix 75 mg Oral tab 1 tab once daily [Active]; aspirin 81 mg Oral TbEC 1 tab once fc daily [Active]; atorvastatin 20 mg oral tab 1 tab once daily [Active]; Vitamin b 12 1000 mcg daily [Active]; folic acid 400 mcg Oral tab 1 tab once daily [Active]; glipizide 5 mg Oral tab 1 tab once daily [Active]; lisinopril 5 mg Oral tab 1 tab once daily [Active]; Namenda 10 mg oral tab 2 tab daily [Active]; metoprolol tartrate 25 mg Oral tab .5 tab once daily [Active]; Paxil 40 mg Oral tab 1 tab once daily [Active]; Xeljanz 5 mg Oral tab 1 tab 2 times per day [Active]; - PMHx: 20:53 Anxiety; Diabetes - NIDDM; Seizures; High Cholesterol; Hypertension; Depression; fc - PSHx: 20:53 Heart stents; left leg; left shoulder; left foot; fc - Immunization history: Last tetanus immunization: - up to date. - Social history:: Smoking status: Patient/guardian denies using tobacco, Patient/guardian denies using alcohol, street drugs. - Ebola Screening: : Patient negative for fever greater than or equal to 101.5 degrees Fahrenheit, and additional compatible Ebola Virus Disease symptoms Patient denies exposure to infectious person Patient denies travel to an Ebola-affected area in the 21 days before illness onset. - Family history:: not pertinent. ROS: 21:25 Constitutional: Negative for fever, chills, and weight loss, Eyes: Negative for injury, hemanth pain, redness, and discharge, ENT: Negative for injury, pain, and discharge, Neck: Negative for injury, pain, and swelling, Cardiovascular: Negative for chest pain, palpitations, and edema, Respiratory: Negative for shortness of breath, cough, wheezing, and pleuritic chest pain, Abdomen/GI: Negative for abdominal pain, nausea, vomiting, diarrhea, and constipation, : Negative for injury, bleeding, discharge, and swelling, Skin: Negative for injury, rash, and discoloration, Neuro: Negative for headache, weakness, numbness, tingling, and seizure, Psych: Negative for depression, anxiety, suicide ideation, homicidal ideation, and hallucinations, Allergy/Immunology: Negative for hives, rash, and allergies, Endocrine: Negative for neck swelling, polydipsia, polyuria, polyphagia, and marked weight changes, Hematologic/Lymphatic: Negative for swollen nodes, abnormal bleeding, and unusual bruising. 21:25 MS/extremity: Positive for decreased range of motion, pain, of the coccyx and right gluteus lorenza. Exam: 21:25 Constitutional: This is a well developed, well nourished patient who is awake, alert, hemanth and in no acute distress. Head/Face: Normocephalic, atraumatic. Eyes: Pupils equal round and reactive to light, extra-ocular motions intact. Lids and lashes normal. Conjunctiva and sclera are non-icteric and not injected. Cornea within normal limits. Periorbital areas with no swelling, redness, or edema. ENT: Nares patent. No nasal discharge, no septal abnormalities noted. Tympanic membranes are normal and external auditory canals are clear. Oropharynx with no redness, swelling, or masses, exudates, or evidence of obstruction, uvula midline. Mucous membranes moist. Neck: Trachea midline, no thyromegaly or masses palpated, and no cervical lymphadenopathy. Supple, full range of motion without nuchal rigidity, or vertebral point tenderness. No Meningismus. Chest/axilla: Normal chest wall appearance and motion. Nontender with no deformity. No lesions are appreciated. Cardiovascular: Regular rate and rhythm with a normal S1 and S2. No gallops, murmurs, or rubs. Normal PMI, no JVD. No pulse deficits. Respiratory: Lungs have equal breath sounds bilaterally, clear to auscultation and percussion. No rales, rhonchi or wheezes noted. No increased work of breathing, no retractions or nasal flaring. Abdomen/GI: Soft, non-tender, with normal bowel sounds. No distension or tympany. No guarding or rebound. No evidence of tenderness throughout. Female : Normal external genitalia. Skin: Warm, dry with normal turgor. Normal color with no rashes, no lesions, and no evidence of cellulitis. Neuro: Awake and alert, GCS 15, oriented to person, place, time, and situation. Cranial nerves II-XII grossly intact. Motor strength 5/5 in all extremities. Sensory grossly intact. Cerebellar exam normal. Normal gait. Psych: Awake, alert, with orientation to person, place and time. Behavior, mood, and affect are within normal limits. 21:25 Back: pain, that is mild, that is moderate, ROM is painful, normal spinal alignment noted, CVA tenderness, is absent, vertebral tenderness, is appreciated at L2, L3, L4 and L5, muscle spasm, is not present. 21:25 Musculoskeletal/extremity: ROM: limited active range of motion, limited passive range of motion, Circulation is intact in all extremities. Sensation intact. Compartment Syndrome exam of affected extremity: is normal. DVT Exam: no pain, no swelling, no tenderness, negative Homans' sign noted on exam, no appreciated bluish discoloration, no erythema, no increased warmth. Vital Signs: 20:25 BP 140 / 72; Pulse 70; Resp 18; Temp 98.1(O); Pulse Ox 98% on R/A; Weight 82.1 kg (R); fc Height 5 ft. 5 in. (165.10 cm) (R); Pain 10/10; 23:30 BP 150 / 69; Pulse 70; Resp 18; Pulse Ox 96% on R/A; ea 02/15 00:30 BP 155 / 67; Pulse 75; Resp 18; Pulse Ox 96% on R/A; ea 01:30 BP 161 / 80; Pulse 71; Resp 19; Pulse Ox 95% on R/A; ea 02/14 20:25 Body Mass Index 30.12 (82.10 kg, 165.10 cm) fc Ben [place] Coma Score: 02/14 20:25 Eye Response: spontaneous(4). Verbal Response: oriented(5). Motor Response: obeys fc commands(6). Total: 15. Trauma Score (Adult): 20:25 Eye Response: spontaneous(1); Verbal Response: oriented(1); Motor Response: obeys fc commands(2); Systolic BP: > 89 mm Hg(4); Respiratory Rate: 10 to 29 per min(4); [place] Score: 15; Trauma Score: 12 MDM: 20:[address] [facility] 21:33 Data reviewed: vital signs, nurses notes, lab test result(s), EKG, radiologic studies, [facility] CT scan, plain films. 02/14 20:37 Order name: Basic Metabolic Panel [facility] 02/14 20:37 Order name: CBC with Diff; Complete Time: 22: [facility] 02/14 20:37 Order name: LFT's; Complete Time: 22:26 [facility] 02/14 20:37 Order name: Magnesium; Complete Time: 22: [facility] 02/14 20:37 Order name: NT PRO-BNP; Complete Time: 22: [facility] 02/14 20:37 Order name: PT-INR; Complete Time: 22:26 [facility] 02/14 20:37 Order name: Troponin (emerg Dept Use Only); Complete Time: 22:26 [facility] 02/14 20:37 Order name: XRAY Chest (1 view); Complete Time: 21:23 [facility] 02/14 20:37 Order name: Lipase; Complete Time: 22:26 [facility] 02/14 20:37 Order name: Urine Culture [facility] 02/14 20:38 Order name: Basic Metabolic Panel; Complete Time: 22:26 EDMS 02/14 22:28 Order name: Chem 7; Complete Time: 00:49 [facility] 02/15 00:16 Order name: Urine Dipstick--Ancillary (enter results) ar5 02/15 00:32 Order name: Urine Dipstick-Ancillary; Complete Time: 00:49 EDWA 02/14 20:37 Order name: Pelvis XRAY; Complete Time: 21:23 [facility] 02/14 20:37 Order name: Hip Right 2 View XRAY; Complete Time: 21:23 [facility] 02/14 21:25 Order name: CT Pelvis wo Cont [facility] 02/14 21:25 Order name: CT Lumbar Spine Wo Con [facility] 02/14 20:37 Order name: EKG; Complete Time: 20:38 [facility] 02/14 20:37 Order name: Cardiac monitoring; Complete Time: 22:21 [facility] 02/14 20:37 Order name: EKG - Nurse/Tech; Complete Time: 22:21 [facility] 02/14 20:37 Order name: IV Saline Lock; Complete Time: 22:21 [facility] 02/14 20:37 Order name: Labs collected and sent; Complete Time: 22:21 [facility] 02/14 20:37 Order name: O2 Per Protocol; Complete Time: 22:21 [facility] 02/14 20:37 Order name: O2 Sat Monitoring; Complete Time: 22:21 [facility] 02/14 20:37 Order name: Urine Dipstick-Ancillary (obtain specimen); Complete Time: 01:55 [facility] 02/14 22:28 Order name: Narayan; Complete Time: 00:41 [facility] Administered Medications: 21:59 Drug: fentaNYL (PF) 50 mcg Route: IVP; Site: left antecubital; ea 22:36 Follow up: Response: No adverse reaction; Pain is decreased ea 21:59 Drug: Zofran 4 mg Route: IVP; Site: left antecubital; ea 22:37 Follow up: Response: No adverse reaction 22:20 Drug: NS 0.9% 1000 ml Route: IV; Rate: 125 ml/hr; Site: left antecubital; ea 02/15 00:41 Follow up: Response: No adverse reaction; IV Status: Infusion continued upon admission 02/14 22:45 Drug: Kayexalate 60 grams Route: PO; ea 02/15 00:45 Follow up: Response: No adverse reaction 02/14 22:45 Drug: Lasix 60 mg Route: IVP; Site: left antecubital; ea 23:15 Follow up: Response: No adverse reaction 22:50 Drug: D50W 50 ml Route: IVP; Site: left antecubital; ea 02/15 00:45 Follow up: Response: No adverse reaction 02/14 22:55 Drug: Insulin Regular Human 10 units {Co-Signature: ak1 (Vesta Quiroz RN).} Route: IVP; ea Site: left wrist; 23:00 Follow up: Response: No adverse reaction ea 23:00 Drug: Albuterol - atroVENT (3:1) (2.5 mg - 0.5 mg) 3 ml Route: Nebulizer; ea 02/15 00:45 Follow up: Response: No adverse reaction ea 00:30 Drug: Calcium Gluconate 1 grams Route: IVPB; Infused Over: 20 mins; Site: left wrist; ea :46 Follow up: Response: No adverse reaction; IV Status: Completed infusion ea 01:00 Drug: Rocephin - (cefTRIAXone) 1 grams Route: IVPB; Infused Over: 30 mins; Site: right ea antecubital; :46 Follow up: Response: No adverse reaction; IV Status: Completed infusion ea 01:15 Drug: Valium 5 mg Route: PO; ea :46 Follow up: Response: No adverse reaction ea 01:20 Drug: GI Cocktail without - (Maalox Suspension 30 ml, Lidocaine Liquid 2 % 15 ea ml) Route: PO; :47 Follow up: Response: No adverse reaction ea Disposition: 02/14/18 22:35 Hospitalization ordered by Janessa Hernandes for Inpatient Admission. Preliminary diagnosis are Fall down embankment (hill), Low back pain, Acute kidney failure, Hyperkalemia. - Bed requested for Telemetry/MedSurg (Inpatient). - Status is Inpatient Admission. ea - Condition is Fair. - Problem is new. - Symptoms have improved. UTI on Admission? Yes Signatures: Dispatcher [employer] EDMS Rojas Mendoza MD MD cha Chretien, Felicia RN WILLY Susy Jade RN RN Ana Park RN RN Vesta Quiroz RN ak1 Corrections: (The following items were deleted from the chart) 02/14 23:41 22:35 Hospitalization Ordered by Janessa Hernandes MD for Inpatient Admission. Preliminary cg diagnosis is Fall down embankment (hill); Low back pain; Acute kidney failure; Hyperkalemia. Bed requested for Telemetry/MedSurg (Inpatient). Status is Inpatient Admission. Condition is Fair. Problem is new. Symptoms have improved. UTI on Admission? No. [facility] 23:47 23:41 02/14/2018 22:35 Hospitalization Ordered by Janessa Hernandes MD for Inpatient fc Admission. Preliminary diagnosis is Fall down embankment (hill); Low back pain; Acute kidney failure; Hyperkalemia. Bed requested for Telemetry/MedSurg (Inpatient). Status is Inpatient Admission. Condition is Fair. Problem is new. Symptoms have improved. UTI on Admission? No. cg 02/15 00:52 02/14 23:47 02/14/2018 22:35 Hospitalization Ordered by Janessa Hernandes MD for Inpatient hemanth Admission. Preliminary diagnosis is Fall down embankment (hill); Low back pain; Acute kidney failure; Hyperkalemia. Bed requested for Telemetry/MedSurg (Inpatient). Status is Inpatient Admission. Condition is Fair. Problem is new. Symptoms have improved. UTI on Admission? No. fc 02/15 02:05 00:52 02/14/2018 22:35 Hospitalization Ordered by Janessa Hernandes MD for Inpatient ea Admission. Preliminary diagnosis is Fall down embankment (hill); Low back pain; Acute kidney failure; Hyperkalemia. Bed requested for Telemetry/MedSurg (Inpatient). Status is Inpatient Admission. Condition is Fair. Problem is new. Symptoms have improved. UTI on Admission? Yes. hemanth
--- NOTE | 2018-02-14 22:35 | ER ---
Nurse's Notes [facility] Name: Viri Jefferson Age: 62 yrs Sex: Female : 1955 Arrival Date: 02/14/2018 Time: 20:32 Bed 6 Private MD: Out, [facility] Diagnosis: Fall down embankment (hill);Low back pain;Acute kidney failure;Hyperkalemia Presentation: 02/14 20:25 Presenting complaint: Patient states: that she fell earlier in the day on her hip. fc Denies hitting head or any LOC. Later she started to have increasing pain to lower back, tailbone and right hip. Care prior to arrival: None. Mechanism of Injury: Fall out of chair. Trauma event details: Injury occurred in the [facility], Injury occurred: at home. Injury occurred: February 14, 2018. 20:25 Acuity: RUSS 3 20:25 Method Of Arrival: EMS: [facility] 20:25 Transition of care: patient was not received from another setting of care. Onset of symptoms was February 14, 2018. Risk Assessment: Do you want to hurt yourself or someone else? Patient reports no desire to harm self or others. Initial Sepsis Screen: Does the patient meet any 2 criteria? No. Patient's initial sepsis screen is negative. Does the patient have a suspected source of infection? No. Patient's initial sepsis screen is negative. Historical: - Allergies: 20:53 PENICILLINS; fc - Home Meds: 20:53 Plavix 75 mg Oral tab 1 tab once daily [Active]; aspirin 81 mg Oral TbEC 1 tab once fc daily [Active]; atorvastatin 20 mg oral tab 1 tab once daily [Active]; Vitamin b 12 1000 mcg daily [Active]; folic acid 400 mcg Oral tab 1 tab once daily [Active]; glipizide 5 mg Oral tab 1 tab once daily [Active]; lisinopril 5 mg Oral tab 1 tab once daily [Active]; Namenda 10 mg oral tab 2 tab daily [Active]; metoprolol tartrate 25 mg Oral tab .5 tab once daily [Active]; Paxil 40 mg Oral tab 1 tab once daily [Active]; Xeljanz 5 mg Oral tab 1 tab 2 times per day [Active]; - PMHx: 20:53 Anxiety; Diabetes - NIDDM; Seizures; High Cholesterol; Hypertension; Depression; fc - PSHx: 20:53 Heart stents; left leg; left shoulder; left foot; fc - Immunization history: Last tetanus immunization: - up to date. - Social history:: Smoking status: Patient/guardian denies using tobacco, Patient/guardian denies using alcohol, street drugs. - Ebola Screening: : Patient negative for fever greater than or equal to 101.5 degrees Fahrenheit, and additional compatible Ebola Virus Disease symptoms Patient denies exposure to infectious person Patient denies travel to an Ebola-affected area in the 21 days before illness onset. - Family history:: not pertinent. Screenin:25 Abuse screen: Denies threats or abuse. Tuberculosis screening: No symptoms or risk fc factors identified. 20:25 Nutritional screening: No deficits noted. Fall Risk Fall in past 12 months (25 points). fc Secondary diagnosis (15 points) seizures, impaired mobility, No IV (0 pts). Ambulatory Aid- Crutches/Cane/Walker (15 pts). Gait- Weak (10 pts.). Mental Status- Overestimates/Forgets Limitations (15 pts.). Total Hi Fall Scale indicates High Risk Score (45 or more points). Fall prevention measures have been instituted. Side Rails Up X 2 Placed Close to Nursing Station Frequent Obs/Assessments Occuring Family Present and informed to notify staff if the need to leave the bedside As available patient and family educated on Fall Prevention Program and Strategies. Assessment: 23:50 General: Appears uncomfortable, Behavior is calm, cooperative, appropriate for age. ea Pain: Complains of pain in buttocks and pelvis. Neuro: Level of Consciousness is awake, alert, obeys commands, Oriented to person, place, time, situation. Cardiovascular: Patient's skin is warm and dry. Respiratory: Airway is patent Respiratory effort is even, unlabored, Respiratory pattern is regular, symmetrical, Breath sounds are clear bilaterally. GI: No signs and/or symptoms were reported involving the gastrointestinal system. : No signs and/or symptoms were reported regarding the genitourinary system. Derm: Skin is dry, Skin is pale, Skin temperature is warm. 02/15 00:30 Reassessment: Patient and/or family updated on plan of care and expected duration. Pain ea level reassessed. Patient is alert, oriented x 3, equal unlabored respirations, skin warm/dry/pink. 01:48 Reassessment: Patient and/or family updated on plan of care and expected duration. Pain ea level reassessed. Patient is alert, oriented x 3, equal unlabored respirations, skin warm/dry/pink. Vital Signs: 02/14 20:25 BP 140 / 72; Pulse 70; Resp 18; Temp 98.1(O); Pulse Ox 98% on R/A; Weight 82.1 kg (R); fc Height 5 ft. 5 in. (165.10 cm) (R); Pain 10/; 23:30 BP 150 / 69; Pulse 70; Resp 18; Pulse Ox 96% on R/A; ea 02/15 00:30 BP 155 / 67; Pulse 75; Resp 18; Pulse Ox 96% on R/A; ea 01:30 BP 161 / 80; Pulse 71; Resp 19; Pulse Ox 95% on R/A; ea 02/14 20:25 Body Mass Index 30.12 (82.10 kg, 165.10 cm) fc Molina Coma Score: 02/14 20:25 Eye Response: spontaneous(4). Verbal Response: oriented(5). Motor Response: obeys fc commands(6). Total: 15. Trauma Score (Adult): 20:25 Eye Response: spontaneous(1); Verbal Response: oriented(1); Motor Response: obeys fc commands(2); Systolic BP: > 89 mm Hg(4); Respiratory Rate: 10 to 29 per min(4); [place] Score: 15; Trauma Score: 12 ED Course: 20:25 Patient has correct armband on for positive identification. Bed in low position. Call fc light in reach. Side rails up X2. 20:25 Arm band placed on Patient placed in an exam room. fc 20:25 Patient maintains SpO2 saturation greater than 95% on room air. fc 20:25 No provider procedures requiring assistance completed. fc 20:32 Patient arrived in ED. am2 20:33 Out, of [facility] is Private Physician. am2 20:35 Rojas Mendoza MD is Attending Physician. hemanth 20:44 Triage completed. fc 21:02 XRAY Chest (1 view) In Process Unspecified. EDMS 21:02 Pelvis XRAY In Process Unspecified. EDMS 21:02 Hip Right 2 View XRAY In Process Unspecified. EDMS 21:18 Ana Park, WILLY is Primary Nurse. ea 21:[address] vm2 21:58 Inserted saline lock: 22 gauge in left antecubital area, using aseptic technique. Blood oe collected. 22:12 CT completed. Patient tolerated procedure well. Patient moved back from CT. vm2 22:12 CT Pelvis wo Cont In Process Unspecified. EDMS 22:12 CT Lumbar Spine Wo Con In Process Unspecified. EDMS 22:34 Janessa Hernandes MD is Hospitalizing Provider. hemanth 23:47 Primary Nurse role handed off by Ana Park, WILLY fc 23:53 Ana Park RN is Primary Nurse. ea 23:53 Narayan cath inserted, using sterile technique, 18 Fr., by ny, balloon inflated, to ea gravity drainage, urine specimen collected. 02/15 01:53 Patient admitted, IV remains in place. ea Administered Medications: 02/14 21:59 Drug: fentaNYL (PF) 50 mcg Route: IVP; Site: left antecubital; ea 22:36 Follow up: Response: No adverse reaction; Pain is decreased ea 21:59 Drug: Zofran 4 mg Route: IVP; Site: left antecubital; ea 22:37 Follow up: Response: No adverse reaction 22:20 Drug: NS 0.9% 1000 ml Route: IV; Rate: 125 ml/hr; Site: left antecubital; ea 02/15 00:41 Follow up: Response: No adverse reaction; IV Status: Infusion continued upon admission ea 02/14 22:45 Drug: Kayexalate 60 grams Route: PO; ea 02/15 00:45 Follow up: Response: No adverse reaction ea 02/14 22:45 Drug: Lasix 60 mg Route: IVP; Site: left antecubital; ea 23:15 Follow up: Response: No adverse reaction 22:50 Drug: D50W 50 ml Route: IVP; Site: left antecubital; ea 02/15 00:45 Follow up: Response: No adverse reaction ea 02/14 22:55 Drug: Insulin Regular Human 10 units {Co-Signature: ak1 (Vesta Quiroz RN).} Route: IVP; ea Site: left wrist; 23:00 Follow up: Response: No adverse reaction ea 23:00 Drug: Albuterol - atroVENT (3:1) (2.5 mg - 0.5 mg) 3 ml Route: Nebulizer; ea 02/15 00:45 Follow up: Response: No adverse reaction ea 00:30 Drug: Calcium Gluconate 1 grams Route: IVPB; Infused Over: 20 mins; Site: left wrist; ea 01:46 Follow up: Response: No adverse reaction; IV Status: Completed infusion ea 01:00 Drug: Rocephin - (cefTRIAXone) 1 grams Route: IVPB; Infused Over: 30 mins; Site: right ea antecubital; 01:46 Follow up: Response: No adverse reaction; IV Status: Completed infusion ea 01:15 Drug: Valium 5 mg Route: PO; ea :46 Follow up: Response: No adverse reaction ea 01:20 Drug: GI Cocktail without - (Maalox Suspension 30 ml, Lidocaine Liquid 2 % 15 ea ml) Route: PO; :47 Follow up: Response: No adverse reaction ea Outcome: 02/14 22:35 Decision to Hospitalize by Provider. hemanth 23:47 Patient left the ED. 02/15 00:00 Instructed on the need for admit. rhonda 01:53 Admitted to Med/surg accompanied by tech, via stretcher, with chart, Report called to rhonda Rose RN 01:53 Condition: stable 02:05 Patient left the ED. ea Signatures: Dispatcher [employer] Rojas Alvarado MD MD cha Chretien, Felicia, RN WILLY Alberto Blair Amanda am2 McGuire, Victoria vm2 Antunez, Elena, RN RN ea Amber Krenek RN ak1
[2018-02-14] MEDS ORDERED: FUROSEMIDE 20 MG/ 2ML VIAL ONE (23:00)
[2018-02-14] MEDS ORDERED: SOD POLYSTYREN SUL 15 GM/60 ML UCUP ONE (23:01)
[2018-02-14] MEDS ORDERED: IPRATROPIUM BROM 0.5MG/2.5ML ONE (23:01)
[2018-02-14] MEDS ORDERED: FUROSEMIDE 40 MG/4 ML VIAL ONE (23:01)
[2018-02-14] MEDS ORDERED: INSULIN -REGULAR HUMAN 50 UNIT/0.5 ML ML ONE (23:01)
[2018-02-14] MEDS ORDERED: ALBUTEROL 2.5 MG/3 ML NEB SOL ONE (23:01)
[2018-02-14] MEDS ORDERED: D50W 25 GM/50 ML SYRINGE IV ONE (23:02)
[2018-02-14 23:20] LABS: Potassium 6.3 mmol/L (3.5-5.1)
[2018-02-14] MEDS ORDERED: SOD POLYSTYREN SUL 15 GM/60 ML UCUP PO ONE (23:47)
--- NOTE | 2018-02-15 00:20 | P.HP ---
Certification for Inpatient Patient admitted to: Inpatient With expected LOS: >2 Midnights Practitioner: I am a practitioner with admitting privileges, knowledge of patient current condition, hospital course, and medical plan of care. Services: Services provided to patient in accordance with Admission requirements found in Title 42 Section 412.3 of the Code of Federal Regulations Patient History Date of Service: 02/15/18 Reason for admission: acute on CKD, hyperkalemia History of Present Illness: Ms Jefferson is a 62 years old woman with history of HTN, CAD s/p AR and stent placement about 3 weeks ago at [facility], who came to ED tonight after sustain a fall at home. She states that was about to sit and missed the chair and land on her bottom. Since so, she has been complaining of her right hip and tailbone. She decided to come to ED for evaluation. pelvic XR and lumbar CT shows no fracture or dislocations. However, her lab work was significantly abnormal. Potassium level 6.3, Creatinine 3.24. ProBNP elevated, CXR shows no acute abnormalities. The patient denied nausea, vomiting, palpitations, dizziness or abdominal pain. Allergies Penicillins Allergy (Severe, Verified 11/14/11 18:54) Anaphylaxis PCN Allergy (Uncoded 06/06/14 07:43) Anaphylaxis Home medications list reviewed: Yes Home Medications: Paroxetine HCl [Paxil] 40 mg PO DAILY 09/05/12 Aspirin [Adult Aspirin] 81 mg PO DAILY 02/15/18 Atorvastatin Calcium 20 mg PO DAILY 02/15/18 Clopidogrel Bisulfate [Plavix] 75 mg PO DAILY 02/15/18 Cyanocobalamin (Vitamin B-12) [Vitamin B-12] 1,000 mcg PO DAILY 02/15/18 Folic Acid 0.4 mg PO DAILY 02/15/18 Lisinopril [Prinivil*] 5 mg PO DAILY 02/15/18 Memantine HCl 10 mg PO BID 02/15/18 Metoprolol Tartrate 12.5 mg PO DAILY 02/15/18 Tofacitinib Citrate [Xeljanz] 5 mg PO DAILY 02/15/18 glipiZIDE [Glucotrol*] 5 mg PO DAILY 02/15/18 - Past Medical/Surgical History Has patient received pneumonia vaccine in the past: No Diabetic: Yes -: anxiety -: seizures -: high cholesterol -: hypertension -: depression -: diabetes mellitus -: stents x2 -: kidney stones -: left leg -: left foot -: left wrist - Family History Family History: Reviewed- Non-Contributory - Social History Smoking Status: Never smoker Alcohol use: No CD- Drugs: No Caffeine use: Yes Place of Residence: Home Review of Systems 10-point ROS is otherwise unremarkable Physical Examination - Physical Exam General: Alert, In no apparent distress HEENT: Atraumatic, PERRLA, Mucous membr. moist/pink, EOMI, Sclerae nonicteric Neck: Supple, 2+ carotid pulse no bruit, No LAD, Without JVD or thyroid abnormality Respiratory: Clear to auscultation bilaterally, Normal air movement Cardiovascular: Regular rate/rhythm, Normal S1 S2 Gastrointestinal: Normal bowel sounds, No tenderness Musculoskeletal: No tenderness Integumentary: No rashes Neurological: Normal speech, Normal strength at 5/5 x4 extr, Normal tone, Normal affect Lymphatics: No axilla or inguinal lymphadenopathy - Studies Laboratory Data (last 24 hrs) 02/14/18 22:40: Sodium 140, Potassium 6.3 H*, BUN 46 H, Creatinine 3.23 H, Glucose 141 H 02/14/18 21:22: PT 11.9, INR 1.01 02/14/18 21:22: WBC 7.5 D, Hgb 11.4 L, Hct 34.3 L, Plt Count 219 02/14/18 21:22: Sodium 139, Potassium 6.3 H*, BUN 45 H, Creatinine 3.24 H, Glucose 162 H, Magnesium 2.1, Total Bilirubin 0.2, AST 18, ALT 17, Alkaline Phosphatase 83, Lipase 158 Assessment and Plan - Problems (Diagnosis) (1) Acute kidney injury superimposed on CKD Current Visit: Yes Status: Acute (2) Hyperkalemia Current Visit: Yes Status: Acute (3) Fall Current Visit: Yes Status: Acute Qualifiers: Encounter type: initial encounter Qualified Code(s): W19.XXXA - Unspecified fall, initial encounter (4) Diabetes mellitus Current Visit: Yes Status: Acute Qualifiers: Diabetes mellitus type: type 2 Diabetes mellitus alf insulin use: without alf use Diabetes mellitus complication status: with unspecified complications Qualified Code(s): E11.8 - Type 2 diabetes mellitus with unspecified complications - Plan The patient will be admitted to the hospital due to acute on CKD. She has hyperkalemia as well. Already receive treatment in ER. Continue kayexelate, check potassium level closely until get normal limits. - Advance Directives Does patient have a Living Will: Yes Does patient have a Durable POA for Healthcare: Yes - Code Status/Comfort Care Code Status Assessed: Yes Code Status: Full Code
[2018-02-15] MEDS ORDERED: CALCIUM GLUC 10% INJ 4.65 MEQ in NA CHLORIDE 0.9% 100 ML IV ONE (00:26)
[2018-02-15 00:32] LABS: Urine Blood TRACE (NEG); Urine Glucose 1+ (NEG); Urine Protein 3+ (NEG); Urine Specific Gravity >1.030 (1.005-1.030)
[2018-02-15] MEDS ORDERED: CALCIUM GLUCONATE 1 GM IVPB 1 GM/50 ML BAG IV ONE (01:08)
[2018-02-15] MEDS ORDERED: ONDANSETRON 4 MG/2 ML VIAL IV PRN (01:10)
[2018-02-15] MEDS ORDERED: DIAZEPAM 5 MG TABLET ONE (01:26)
[2018-02-15] MEDS ORDERED: LIDOCAINE VISCOUS 2% SOLN 15 ML UDC ONE (01:26)
[2018-02-15] MEDS ORDERED: MAGNE/ALUM HYDROXD 30 ML UCUP ONE (01:26)
[2018-02-15] MEDS ORDERED: CEFTRIAXONE/SWI 1gm 1 GM/10 ML SYR ONE (01:27)
[2018-02-15 03:02] VITALS: BMI 29.5
[2018-02-15] MEDS: NA CHLORIDE 0.9% 1,000 ML IV SCH ×3 (03:13→21:21)
[2018-02-15 03:50] LABS: Absolute Lymphocytes (CBC) 0.7 K/uL (0.7-4.9); Absolute Monocytes 0.4 K/uL (0.1-1.3); Absolute Neutrophil 5.7 K/uL (1.8-8.0); Basophils % 0.7 % (0-1.3); Eosinophils % 1.5 % (0-4.4); Hematocrit 33.1 % (36.0-45.0); Lymphocytes % 10.1 % (15.3-44.8); MPV 8.4 fL (7.6-11.3); RBC Red Blood Cell Count 3.49 M/uL (3.86-4.86)
[2018-02-15 04:11] LABS: Potassium 6.5 mmol/L (3.5-5.1)
[2018-02-15] MEDS: ACETAMINOPHEN 500 MG TAB PO PRN ×2 (05:20→09:11)
--- NOTE | 2018-02-15 06:27 | EKG ---
Test Date: 2018-02-14 Test Time: 21:36:46 Paint Prepper: CAYETANO MEASUREMENT RESULTS: Intervals: Rate: 67 IA: QRSD: 158 QT: 516 QTc: 545 Temple: P: 80 IA: QRS: 23 T: 182 INTERPRETIVE STATEMENTS: Sinus rhythm Left bundle branch block Abnormal ECG Compared to ECG 02/13/2017 04:39:56 no significant change from previous ECG Electronically Signed On 02-15-18 06:26:31 EDGE GRINDER by Toi Johns
[2018-02-15] MEDS: INSULIN -REGULAR HUMAN 50 UNIT/0.5 ML ML SQ SCH ×4 (07:30→21:20)
--- NOTE | 2018-02-15 08:02 | RAD REPORT ---
EXAM DESCRIPTION: CTSpine Lumbar Wo Con02/14/2018 10:12 pm CLINICAL HISTORY: Back injury with back pain and radiculopathy status post fall COMPARISON: None TECHNIQUE: Computed axial tomography lumbar spine was obtained with coronal and sagittal reconstruct ion. Preliminary report generated by virtual radiologic and reviewed prior to dictation All CT scans are performed using dose optimization technique as appropriate and may include automated exposure control or mA/KV adjustment according to patient size. FINDINGS: No lumbar fracture is seen. No dislocation is noted. Insufficiency fracture left sacral ala A large bulging/disc herniation is not seen Mild anterior subluxation L5 on S1 with spondylolysis IMPRESSION: Insufficiency fracture left sacral ala Acute lumbar fracture is not seen. If patient continues have symptoms to suggest spinal canal patholo gy MRI would be recommended
[2018-02-15] MEDS ORDERED: SOD POLYSTYREN SUL 15 GM/60 ML UCUP PO ONE (08:04)
--- NOTE | 2018-02-15 08:25 | RAD REPORT ---
EXAM DESCRIPTION: CT - Pelvis Wo Cont - 02/14/2018 10:12 pm CLINICAL HISTORY: Right hip pain status post fall COMPARISON: October 2017 CT TECHNIQUE: Computed axial tomography of the pelvis was obtained with coronal and sagittal reconstruc tion. Preliminary report generated by virtual radiologic and reviewed prior to dictation All CT scans are performed using dose optimization technique as appropriate and may include automated exposure control or mA/KV adjustment according to patient size. FINDINGS: Insufficiency fracture left sacral ala. Nondisplaced fracture left iliac crest. Subacute fractures left superior and inferior pubic rami. Plate and screws affix a subacute left femoral fracture IMPRESSION: Insufficiency fracture left sacral ala. Nondisplaced fracture left iliac crest Subacute fractures left superior and inferior pubic rami If patient continues have to have symptoms to suggest an occult right femoral fracture MRI would be r ecommended
[2018-02-15 10:32] LABS: Urine Appearance CLOUDY; Urine Bilirubin NEGATIVE (NEG); Urine Blood 1+ (NEG); Urine Color YELLOW; Urine Glucose TRACE (NEG); Urine Protein 3+ (NEG); Urine Specific Gravity 1.015 (1.005-1.030); Urine Urobilinogen 0.2 mg/dL (0.2-1.0)
[2018-02-15 10:34] LABS: Urine Microscopic Reflex ORDER UMIC
[2018-02-15] MEDS: HYDROCODONE/APAP 5/325 MG TAB PO PRN ×3 (10:43→23:54)
[2018-02-15 10:53] LABS: Urine Bacteria 20-50 /HPF (<20); Urine Culture Reflex Order REFLEXED; Urine Mucus 2+ /HPF (NONE SEEN)
--- NOTE | 2018-02-15 15:22 | P.PN ---
Subjective Date of Service: 02/15/18 Chief Complaint: acute on CKD, hyperkalemia Subjective: Improving Patient seen and examined chart reviewed and case discussed with RN. Patient states she feels better. Having some pain due to fall recently Review of Systems 10-point ROS is otherwise unremarkable Musculoskeletal: As per HPI Physical Examination - Vital Signs Temperature: 97.2 F Blood Pressure: 148/66 Pulse: 63 Respirations: 16 Pulse Ox (%): 95 - Physical Exam General: Alert, Oriented x3, Mild distress, Other (Ill-appearing elderly female) HEENT: Atraumatic, PERRLA, EOMI Neck: Supple, JVD not distended Respiratory: Clear to auscultation bilaterally, Normal air movement Cardiovascular: No edema, Normal pulses, Regular rate/rhythm, Normal S1 S2 Gastrointestinal: Normal bowel sounds, Soft and benign, Non-distended, No tenderness Musculoskeletal: No clubbing, No swelling, Tenderness (Lower back) Integumentary: No rashes, No erythema, No cyanosis Neurological: Normal speech, Normal strength at 5/5 x4 extr, Normal tone, Cranial nerves 3-12 intact, Normal affect - Studies Laboratory Data (last 24 hrs) 02/14/18 22:40: Sodium 140, Potassium 6.3 H*, BUN 46 H, Creatinine 3.23 H, Glucose 141 H 02/14/18 21:22: PT 11.9, INR 1.01 02/14/18 21:22: WBC 7.5 D, Hgb 11.4 L, Hct 34.3 L, Plt Count 219 02/14/18 21:22: Sodium 139, Potassium 6.3 H*, BUN 45 H, Creatinine 3.24 H, Glucose 162 H, Magnesium 2.1, Total Bilirubin 0.2, AST 18, ALT 17, Alkaline Phosphatase 83, Lipase 158 Microbiology Data (last 24 hrs): Urine culture pending Medications List Reviewed: Yes Assessment And Plan - Current Problems (Diagnosis) (1) Acute kidney injury superimposed on CKD Onset Date: 02/15/18 Current Visit: Yes Status: Acute (2) Hyperkalemia Onset Date: 02/15/18 Current Visit: Yes Status: Acute (3) Diabetes mellitus Onset Date: 02/15/18 Current Visit: Yes Status: Acute Qualifiers: Diabetes mellitus type: type 2 Diabetes mellitus termite control representative insulin use: without senior care use Diabetes mellitus complication status: with kidney complications Diabetes mellitus complication detail: with chronic kidney disease Chronic kidney disease stage: stage 3 (moderate) Qualified Code(s): E11.22 - Type 2 diabetes mellitus with diabetic chronic kidney disease; N18.3 - Chronic kidney disease, stage 3 (moderate) (4) Fall Onset Date: 02/15/18 Current Visit: Yes Status: Acute Qualifiers: Encounter type: initial encounter Qualified Code(s): W19.XXXA - Unspecified fall, initial encounter (5) Acute back pain Current Visit: Yes Status: Acute Qualifiers: Back pain location: low back pain Back pain laterality: midline Sciatica presence: without sciatica Qualified Code(s): M54.5 - Low back pain - Plan Monitor creatinine Continue IV fluids Nephrology consultation Kayexalate 45 g q.6 hr Monitor potassium level PT eval Pain control Discharge Plan: Home Plan to discharge in: 48 Hours - Code Status/Comfort Care Code Status Assessed: Yes
[2018-02-15] MEDS: SOD POLYSTYREN SUL 15 GM/60 ML UCUP PO SCH ×2 (18:22→23:54)
--- NOTE | 2018-02-15 21:12 | RAD REPORT ---
EXAM DESCRIPTION: US - Renal Ultrasound-Complete - 02/15/2018 8:59 pm CLINICAL HISTORY: acute renal failure COMPARISON: ABDOMINAL EXAM LIMITED dated 01/05/2015 FINDINGS: Both kidneys are normal in size, shape and echotexture. Mild cortical thinning is noted bi laterally. The right kidney measures 10.3 x 5.3 x 5.1 cm. No hydronephrosis, focal mass or perinephric fluid. The left kidney measures 9.5 x 5.2 x 4.9 cm. No hydronephrosis, focal mass or perinephric fluid. The urinary bladder is incompletely distended without gross abnormality seen. IMPRESSION: Unremarkable renal sonogram.
[2018-02-15] MEDS: ATORVASTATIN 20 MG TAB PO SCH (21:20)
[2018-02-15] MEDS: MEMANTINE HCL 10 MG TABLET PO SCH (21:20)
[2018-02-16] MEDS: SOD POLYSTYREN SUL 15 GM/60 ML UCUP PO SCH (04:00)
[2018-02-16] MEDS: HYDROCODONE/APAP 5/325 MG TAB PO PRN ×3 (05:03→18:20)
[2018-02-16] MEDS: NA CHLORIDE 0.9% 1,000 ML IV SCH ×2 (05:03→17:07)
[2018-02-16 06:01] LABS: Absolute Lymphocytes (CBC) 0.8 K/uL (0.7-4.9); Absolute Monocytes 0.2 K/uL (0.1-1.3); Absolute Neutrophil 2.6 K/uL (1.8-8.0); Basophils % 0.7 % (0-1.3); Eosinophils % 4.5 % (0-4.4); Hematocrit 28.5 % (36.0-45.0); MPV 8.7 fL (7.6-11.3); Monocytes % 6.3 % (3.3-12.3); RBC Red Blood Cell Count 2.99 M/uL (3.86-4.86)
[2018-02-16 06:27] LABS: Albumin 2.8 g/dL (3.4-5.0); Bilirubin Total 0.3 mg/dL (0.2-1.0); Potassium 3.6 mmol/L (3.5-5.1); Protein, Total 6.6 g/dL (6.4-8.2)
[2018-02-16] MEDS: INSULIN -REGULAR HUMAN 50 UNIT/0.5 ML ML SQ SCH ×4 (07:30→21:38)
[2018-02-16] MEDS ORDERED: TOFACITINIB CITRATE 5 MG PO SCH (09:00)
[2018-02-16] MEDS: FOLIC ACID 1 MG TABLET PO SCH (09:35)
[2018-02-16] MEDS: ASPIRIN EC 81 MG TAB PO SCH (09:35)
[2018-02-16] MEDS: METOPROLOL TAR 25 MG TAB PO SCH (09:36)
[2018-02-16] MEDS: MEMANTINE HCL 10 MG TABLET PO SCH ×2 (09:37→20:17)
[2018-02-16] MEDS: PARoxetine HCl 10 MG TAB PO SCH (09:38)
[2018-02-16] MEDS: CLOPIDOGREL 75 MG TABLET PO SCH (09:39)
[2018-02-16] MEDS ORDERED: MAGIC MOUTHWASH 180 ML BTL PO PRN (11:52)
[2018-02-16] MEDS ORDERED: TRAMADOL HCL 50 MG TAB PO PRN (12:11)
--- NOTE | 2018-02-16 16:47 | CON ---
Date of Consultation: 02/16/2018 Reason For Consult: Acute on chronic renal insufficiency. History Of Present Illness: Ms. Jefferson is a very pleasant 62-year-old female with a complicated past medical history including recent history of cardiac stent placement earlier this month at [facility]. The patient has had chronic kidney disease and had been seen by environmental engineering aide at [facility] in the past. She was believed to have diabetic nephropathy with proteinuria. She has had multiple o rthopedic surgeries and recently had a hip surgery after a fracture on her left hip. She follows jose torrez with her primary care physician at [facility] as well. The patient was admitted yesterda y because of a fall and she tried to sit and she missed the chair and fell down and since then her ta ilbone and her lower back has been hurting a lot. The patient was noted to have severely increased c reatinine of 3.2 compared to her baseline of around 2.2 when she was discharged from the hospital [place] this month and severe hyperkalemia. She has received multiple doses of Kayexalate, which have n ormalized her potassium today and her creatinine has also improved to 2.8. Past Medical History: Significant for history of multiple orthopedic surgeries related to her ankle, her wrists, her left hip; history of coronary artery disease; history of rheumatoid arthritis, on Xe ljanz; history of type 2 diabetes, which has been uncontrolled but it is better controlled now; histo ry of depression; coronary artery disease status post recent stent placement. Social History: She lives at home with her family. Denies any history of smoking or alcohol use. Family History: Noncontributory for any history of kidney disease. Review of Systems: Positive for pain in her lower back. Also, has some dry mouth with some difficulty swallowing. Reji es any chest pain or shortness of breath at this time, has been urinating well and denies any other c omplaints. All other review of systems are negative. Physical Examination: Vital Signs: At this time are showing temperature of 98.3, pulse rate of 83, respiratory rate of 18, and blood pressure 151/61. General: She appears in no acute distress. HEENT: Oral mucosa was coated and white. Lungs: Clear to auscultation. Abdomen: Soft and nontender. Extremities: Did not reveal any evidence of edema. Laboratory Data: At this time is showing sodium of 143, potassium of 3.6, chloride of 112, BUN of 39 and creatinine of 2.87, which is improving. CBC showing hemoglobin of 9.6, hematocrit of 28.5, and platelet count of 161. Urinalysis showed 1+ leukocyte esterase with bacteria. Urine culture is not growing any pathogenic bacteria from day before yesterday. Current Medications: Have been reviewed as well. Impression: 1.Acute on chronic renal insufficiency, possibly related to NSAID use versus dehydration. Currently with improving renal function with IV fluids. We will continue IV fluids for more day and monitor h er closely. 2.Hyperkalemia. The patient has been counseled extensively on low and high potassium foods and a alejandra ndout has been given. Her potassium is better controlled now. She is not on any other medications t hat can lead to hyperkalemia at this time. 3.Coronary artery disease with recent stent placement, currently stable. We will continue aspirin a nd Plavix and atorvastatin for now. 4.Fall with possibly fracture of her coccyx. With pain control, the patient has been counseled on N SAID use. May need some tramadol upon discharge for pain control. We will go ahead and order that f or right now. Plan: Overall, the patient is much better at this time. Creatinine is improving. Continue to monit or her closely and continue IV fluids for one more day and if the patient is doing okay tomorrow, she can be discharged with close outpatient followup to monitor her renal function. Thank you very much for this consultation. Please do not hesitate to call us with any questions or concerns. The plan was discussed with the patient's family also at bedside. Time Spent: About 45 minutes. SEUN/SARA Voice ID: [id number] Report ID: [id number]
--- NOTE | 2018-02-16 16:54 | P.CNS ---
Date of Consult: 02/16/18 Reason for Consult: SACRAL ALA FRACTURE Requesting Physician: Erica Craig Primary Care Provider: DR. Victoria CANCHOLA Chief Complaint: acute on CKD, hyperkalemia History of Present Illness: PATIENT MISSED CHAIR TO SIT DOWN HARD ON FLOOR WITH IMPACT TO TAILBONE AND RIGHT HIP IN PATIENT'S PERCEPTION. PRESENTED TO ED WHERE X-RAYS NEGATIVE EXCEPT FOR CT PELVIS THAT SHOWED 1)INSUFFICIENCY FRACTURE SACRAL ALA, LEFT. 2) NONDISPLACED FRACTURE LEFT ILIAC CREST. 3) SUBACUTE FRACTURES LEFT SUPERIOR AND INFERIOR PUBIC RAMI. AND 4) PLATE AND SCREW FIXATION FOR REMOTE LEFT HIP FRACTURE. PATIENT WAS ADMITTED 02/14/18 AND HAS HAD LIMITING LOW BACK PAIN DESCRIBED FIRST RIGHT SIDED, BUT MORE CENTERED WHEN STANDING WITH ASSISTANCE OR SITTING. Allergies Penicillins Allergy (Severe, Verified 11/14/11 18:54) Anaphylaxis PCN Allergy (Uncoded 06/06/14 07:43) Anaphylaxis Home Medications: Paroxetine HCl [Paxil] 40 mg PO DAILY 09/05/12 Aspirin [Adult Aspirin] 81 mg PO DAILY 02/15/18 Atorvastatin Calcium 20 mg PO DAILY 02/15/18 Clopidogrel Bisulfate [Plavix] 75 mg PO DAILY 02/15/18 Cyanocobalamin (Vitamin B-12) [Vitamin B-12] 1,000 mcg PO DAILY 02/15/18 Folic Acid 0.4 mg PO DAILY 02/15/18 Lisinopril [Prinivil*] 5 mg PO DAILY 02/15/18 Memantine HCl 10 mg PO BID 02/15/18 Metoprolol Tartrate 12.5 mg PO DAILY 02/15/18 Tofacitinib Citrate [Xeljanz] 5 mg PO DAILY 02/15/18 glipiZIDE [Glucotrol*] 5 mg PO DAILY 02/15/18 - Past Medical/Surgical History Diabetic: Yes -: anxiety -: seizures -: high cholesterol -: hypertension -: depression -: diabetes mellitus -: stents x2 -: kidney stones -: left leg -: left foot -: left wrist - Social History Smoking Status: Unknown if ever smoked Alcohol use: No CD- Drugs: No Caffeine use: Yes Place of Residence: Home Review of Systems 10-point ROS is otherwise unremarkable Physical Examination Temp Pulse Resp BP Pulse Ox 98.3 F 83 18 151/61 H 94 02/16/18 08:00 02/16/18 09:36 02/16/18 08:00 02/16/18 09:36 02/16/18 08:00 General: In no apparent distress, Oriented x3, Cooperative HEENT: Atraumatic, Normocephalic Neck: Supple (NONTENDER TO PALPATION) Respiratory: Normal air movement Cardiovascular: No edema, Normal pulses Capillary refill: Brisk Gastrointestinal: Soft and benign, Non-distended Musculoskeletal: Contractures (LEFT HIP LIMITED IN ABDUCTION AND INTERNAL ROTATION, RESTS CHRONICALLY IN EXT. ROTATION AFTER 3 OR 4 HIP PROCEDURES. PATIENT GENERALLY USES A WALKER), Tenderness (NO REACTION TO COMPRESSION OF ILIAC CRESTS, BUT MILD TENDERNESS TO PRESSURE AT MIDLINE LUMBOSACRAL JUNCTION. ) Integumentary: No rashes, No breakdown, No significant lesion Neurological: Other (PATIENT ABLE TO MOVE RLE FOR LEG RAISES, DEMONSTRATES GOOD STRENGTH HAMSTRINGS, QUADS AND LOWER LEG. LEFT LOWER EXTREMITY WEAKER BY FAR AFTER 3/4 SURGERIES FOR LEG LIFT AND QUADS, HAMSTRINGS 4/5.) Imagings Data: sEE HPI - Problems (1) Closed minimally displaced zone I fracture of sacrum Current Visit: Yes Status: Acute Plan: PATIENT WITH PAIN BUT NO NEUROLOGICAL DEFECTS. SHE HAS ALREADY TOLERATED MOBILIZATION TO BR. WILL HAVE THERAPY PROGRESS PATIENT WITH WEIGHT BEARING TOLERATED FOR TRANSFERS AND AMBULATION WITH WALKER. WOULD RECOMMEND NEUROLOGICAL CONSULT. 5TH FLOOR REHAB IF AVAILABLE FOR THIS PATIENT. Qualifiers: Encounter type: initial encounter Qualified Code(s): S32.111A - Minimally displaced Zone I fracture of sacrum, initial encounter for closed fracture
[2018-02-16] MEDS: ENOXAPARIN 30 MG/0.3 ML SQ SCH (18:20)
--- NOTE | 2018-02-16 19:29 | PN ---
Date of Progress Note: 02/16/2018 The patient was seen and examined. Chart reviewed and case discussed with RN. The patient is still having significant amount of pain in her back. Medications are helping. The patient has not really gotten up and moved around at all. Case discussed with Dr. Quiroga with Nephrology. Medications: List reviewed. Physical Examination: VITAL SIGNS: Temperature 98.3, heart rate 83, blood pressure 151/61, respirations 18, O2 94% on room air. GENERAL: Awake, alert, oriented x3. Some mild distress due to pain with movement, ill-appearing fem poornima. CVS: S1, S2. Peripheral pulses present. Regular rate and rhythm. RESPIRATORY: Moving air well bilaterally. No wheezing or stridor. GASTROINTESTINAL: Abdomen is soft, nontender, nondistended. Positive bowel sounds. EXTREMITIES: No clubbing, cyanosis, or edema. NEUROLOGIC: Nonfocal. MUSCULOSKELETAL: Tenderness to palpation in the sacrum. Laboratory Data: Sodium 143, potassium 3.6, chloride 112, CO2 21, BUN 39, creatinine 2.87, glucose 1 59, calcium 7.6, albumin 2.8. WBC 3.8, H and H 9.6/28.5, platelets 161, neutrophils 68%. Urine cult ure showed no growth. Assessment: A 62-year-old female with: 1.Acute kidney injury superimposed on chronic kidney injury stage 3. 2.Hyperkalemia, corrected. We will stop Kayexalate. 3.Diabetes mellitus type 2 without long-term use of insulin with chronic kidney disease stage 3. We will continue sliding scale insulin and Accu-Cheks. 4.Status post fall. 5.Acute back pain midline without sciatica. 6.Sacral ala fracture. 7.Osteopenia. 8.Old left virgen-pelvic fracture seen. Hardware present. 9.Gastrointestinal and deep venous thrombosis prophylaxis addressed. Plan: We will continue with PT, mobilize the patient. The patient does see Orthopedics as an outpat ient in [place]. We will continue to monitor creatinine level. Continue IV fluids, likely discharge in a.m. if creatinine continues to improve. SA/MODL Voice ID: [id number] Report ID: [id number]
[2018-02-16] MEDS: ATORVASTATIN 20 MG TAB PO SCH (20:17)
[2018-02-17] MEDS: HYDROCODONE/APAP 5/325 MG TAB PO PRN ×3 (00:04→18:33)
[2018-02-17] MEDS: NA CHLORIDE 0.9% 1,000 ML IV SCH ×3 (02:15→21:23)
[2018-02-17 05:43] LABS: Absolute Lymphocytes (CBC) 0.7 K/uL (0.7-4.9); Absolute Monocytes 0.3 K/uL (0.1-1.3); Absolute Neutrophil 2.2 K/uL (1.8-8.0); Basophils % 0.8 % (0-1.3); Eosinophils % 3.3 % (0-4.4); Hematocrit 26.5 % (36.0-45.0); Lymphocytes % 20.3 % (15.3-44.8); MPV 8.8 fL (7.6-11.3); RBC Red Blood Cell Count 2.74 M/uL (3.86-4.86)
[2018-02-17 06:01] LABS: Albumin 2.5 g/dL (3.4-5.0); Bilirubin Total 0.2 mg/dL (0.2-1.0); Potassium 3.7 mmol/L (3.5-5.1)
[2018-02-17] MEDS: INSULIN -REGULAR HUMAN 50 UNIT/0.5 ML ML SQ SCH ×4 (07:30→21:22)
[2018-02-17] MEDS: PARoxetine HCl 10 MG TAB PO SCH (10:15)
[2018-02-17] MEDS: FOLIC ACID 1 MG TABLET PO SCH (10:15)
[2018-02-17] MEDS: ASPIRIN EC 81 MG TAB PO SCH (10:16)
[2018-02-17] MEDS: CLOPIDOGREL 75 MG TABLET PO SCH (10:16)
[2018-02-17] MEDS: METOPROLOL TAR 25 MG TAB PO SCH (10:16)
[2018-02-17] MEDS: MEMANTINE HCL 10 MG TABLET PO SCH ×2 (10:16→21:22)
[2018-02-17] MEDS: ENOXAPARIN 30 MG/0.3 ML SQ SCH (10:17)
--- NOTE | 2018-02-17 19:47 | PN ---
Date of Progress Note: 02/17/2018 History: The patient seen and examined, and chart reviewed and case discussed with RN. The patient is doing significantly better. Still having some pain in the back and leg. Review of Systems: Negative except as above. Medications: List reviewed. Physical Examination: Vital Signs: Temperature 97.8, heart rate 76, blood pressure 128/61, respirations 18, O2 94% on room air. General: Awake, alert, oriented x3. Some mild distress due to pain. Elderly female. CV: S1, S2. Peripheral pulses present. No murmurs. Respiratory: Clear to auscultation bilaterally. No wheezing or stridor. Gastrointestinal: Abdomen is soft, nontender, nondistended. Positive bowel sounds. No guarding or rigidity. Extremities: No clubbing, cyanosis, or edema. Neurologic: Nonfocal. Musculoskeletal: Tenderness to palpation in the sacrum. Laboratory Data: WBC 3.4, H and H 8.8 and 26.5, platelets 124. Sodium 143, potassium 3.7, chloride 111, CO2 23, BUN 36, creatinine 2.5, glucose 128, calcium 7.4. Cultures pending. Urine culture show s no growth. Assessment And Plan: A 62-year-old female with: 1.Acute kidney injury superimposed on chronic kidney injury stage 3. Creatinine is improving. Appr eciate Nephrology input. Continue IV fluids. Monitor. 2.Hyperkalemia, corrected. 3.Diabetes mellitus type 2 with long-term use of insulin with chronic kidney disease stage 3. Christopher nue sliding scale and Accu-Cheks. 4.Sacral ala fracture. No neurological deficits. Appreciate Dr. Grant's input. Continue with phy sical therapy. 5.Old left virgen-pelvic fracture seen. The patient does have hardware from previous surgery. The pa tient does have some decreased range of motion in the left lower extremity with some weakness. 6.Status post fall, mechanical. 7.Osteopenia. 8.Gastrointestinal and deep venous thrombosis prophylaxes with PPI and Lovenox. Plan: Orthopedic recommendations for inpatient rehab. The patient is okay with inpatient rehab. We will plan to sent referral. In the meantime, We will continue with physical therapy, mobilize patie nt, monitor creatinine. SA/MODL Voice ID: [id number] Report ID: [id number]
[2018-02-17] MEDS: ATORVASTATIN 20 MG TAB PO SCH (21:22)
[2018-02-18] MEDS: HYDROCODONE/APAP 5/325 MG TAB PO PRN ×3 (03:51→17:49)
[2018-02-18 05:45] LABS: Absolute Lymphocytes (CBC) 0.8 K/uL (0.7-4.9); Absolute Monocytes 0.4 K/uL (0.1-1.3); Absolute Neutrophil 1.6 K/uL (1.8-8.0); Basophils % 0.8 % (0-1.3); Eosinophils % 4.6 % (0-4.4); Hematocrit 25.8 % (36.0-45.0); Lymphocytes % 28.5 % (15.3-44.8); MPV 9.9 fL (7.6-11.3)
[2018-02-18 07:20] LABS: Albumin 2.1 g/dL (3.4-5.0); Bilirubin Total 0.2 mg/dL (0.2-1.0); Potassium 3.2 mmol/L (3.5-5.1); Protein, Total 5.6 g/dL (6.4-8.2)
[2018-02-18] MEDS: INSULIN -REGULAR HUMAN 50 UNIT/0.5 ML ML SQ SCH ×4 (07:30→21:01)
[2018-02-18] MEDS: NA CHLORIDE 0.9% 1,000 ML IV SCH ×2 (09:17→21:02)
[2018-02-18] MEDS: CLOPIDOGREL 75 MG TABLET PO SCH (09:18)
[2018-02-18] MEDS: METOPROLOL TAR 25 MG TAB PO SCH (09:18)
[2018-02-18] MEDS: ASPIRIN EC 81 MG TAB PO SCH (09:19)
[2018-02-18] MEDS: PARoxetine HCl 10 MG TAB PO SCH (09:19)
[2018-02-18] MEDS: MEMANTINE HCL 10 MG TABLET PO SCH ×2 (09:20→21:01)
[2018-02-18] MEDS: FOLIC ACID 1 MG TABLET PO SCH (09:20)
[2018-02-18] MEDS: ENOXAPARIN 30 MG/0.3 ML SQ SCH (09:21)
[2018-02-18] MEDS ORDERED: POTASSIUM CL SA 10 MEQ TAB PO ONE (12:00)
--- NOTE | 2018-02-18 16:43 | PN ---
Date of Progress Note: 02/18/2018 Subjective: The patient is seen and examined. Chart reviewed, and case discussed with RN. The patient overall doing better. Pain is well controlled. She states she is better able to move in and out of bed despite the sacral ala fracture. Medications: List reviewed. Physical Examination: Vital Signs: Temperature 97.8, heart rate 65, blood pressure 138/64, respirations 18, O2 of 91% on room air. General: Awake, alert, oriented x3. No acute distress. CV: S1, S2. Regular rate and rhythm. Peripheral pulses present. Respiratory: Moving air well bilaterally. No wheezing. Gastrointestinal: Abdomen is soft, nontender, nondistended. Positive bowel sounds. No guarding or rigidity. Extremities: No clubbing, cyanosis, or edema. Neurologic: Nonfocal. Musculoskeletal: No tenderness to palpation in the lower back. Laboratory Data: Sodium 144, potassium 3.2, chloride 115, CO2 of 20, BUN 38, creatinine 2.4, calcium 7.2, albumin is 2.1. WBC 3, H and H 8.5, 25.8, platelets 131. Assessment And Plan: A 62-year-old female with: 1. Acute kidney injury on chronic kidney injury, stage 3, improving. Creatinine is down to 2.4, close to her baseline. We will adjust IV fluids. Nephrology on board. 2. Hypokalemia. We will replace and monitor. 3. Diabetes mellitus type 2 with long-term use of insulin with chronic kidney disease, stage 3. The patient is on sliding scale. We will continue to monitor Accu-Cheks. 4. Sacral ala pathologic fracture. No neurological deficit. Appreciate Dr. Grant's evaluation. We will continue PT, mobilize. 5. Old left virgen-pelvic fracture. The patient has hardware from previous surgeries at baseline. 6. Status post fall, mechanical. 7. Osteopenia. 8. Gastrointestinal and deep venous thrombosis prophylaxis with PPI and Lovenox. 9. Normocytic normochromic anemia. Hemoglobins trended down, may be dilutional. We will check Hemoccult stool. Plan: Refer to inpatient rehab. If unable to be accepted, then we will discharge home with home health with physical therapy. SA/MODL Voice ID: [id number] Report ID: [id number] MTDD
[2018-02-18] MEDS: ATORVASTATIN 20 MG TAB PO SCH (21:01)
[2018-02-18] MEDS ORDERED: NITROGLYCERIN 0.4 MG/TAB SL ONE (22:37)
[2018-02-19] MEDS: HYDROCODONE/APAP 5/325 MG TAB PO PRN ×2 (00:18→09:52)
[2018-02-19 06:09] LABS: Absolute Lymphocytes (CBC) 0.9 K/uL (0.7-4.9); Absolute Monocytes 0.4 K/uL (0.1-1.3); Absolute Neutrophil 1.4 K/uL (1.8-8.0); Basophils % 0.9 % (0-1.3); Eosinophils % 5.7 % (0-4.4); Hematocrit 24.7 % (36.0-45.0); Lymphocytes % 31.8 % (15.3-44.8); MPV 8.6 fL (7.6-11.3); Monocytes % 14.2 % (3.3-12.3); RBC Red Blood Cell Count 2.59 M/uL (3.86-4.86)
[2018-02-19 06:32] LABS: Albumin 2.2 g/dL (3.4-5.0); Bilirubin Total 0.2 mg/dL (0.2-1.0); Potassium 3.2 mmol/L (3.5-5.1)
[2018-02-19] MEDS: INSULIN -REGULAR HUMAN 50 UNIT/0.5 ML ML SQ SCH ×2 (07:30→11:30)
--- NOTE | 2018-02-19 07:35 | P.PN ---
Date of Service: 02/17/18 S: Patient seen in room in supine position, relatively comfortable. She describes pain as mainly when getting up or getting down. She has been assisted by nerves to get to the bathroom and back in described it as reasonably well tolerated. O: VSS, Hgb dropped to 8.8 this morning from 9.6 yesterday; NV exam is intact. The patient has not had physical therapy contact as yet today. A: Early mobilization efforts going better than expected. Pain largely absent while supine but aggravated by up-and-down efforts. P: Continue mobilization as tolerated. Hemoglobin beers watching.
--- NOTE | 2018-02-19 07:47 | P.PN ---
Date of Service: 02/18/18 S: Patient still relatively comfortable with pain mainly when getting up or getting down. She has been Recording pain is mostly zeros, but occasionally eights associated with movement like getting up to use the walker or sitting down on the chair or bed. Physical therapy efforts have been reasonably well tolerated. O: VSS, Hgb stable at 8.5 this morning; NV exam is intact. The patient went 80 with physical therapy Using a rolling walker. A: Early mobilization efforts continuing better than expected. P: Continue mobilization as tolerated.
[2018-02-19] MEDS: FOLIC ACID 1 MG TABLET PO SCH (08:26)
[2018-02-19] MEDS: ENOXAPARIN 30 MG/0.3 ML SQ SCH (08:26)
[2018-02-19] MEDS: ASPIRIN EC 81 MG TAB PO SCH (08:26)
[2018-02-19] MEDS: METOPROLOL TAR 25 MG TAB PO SCH (08:27)
[2018-02-19] MEDS: PARoxetine HCl 10 MG TAB PO SCH (08:27)
[2018-02-19] MEDS: MEMANTINE HCL 10 MG TABLET PO SCH (08:27)
[2018-02-19] MEDS: CLOPIDOGREL 75 MG TABLET PO SCH (08:27)
[2018-02-19] MEDS: NA CHLORIDE 0.9% 1,000 ML IV SCH (11:40)
[2018-02-19 11:41] VITALS: O2SAT 95
--- NOTE | 2018-02-19 11:58 | EKG ---
Test Date: 2018-02-18 Test Time: 22:44:45 Manager [employer]: RT-O MEASUREMENT RESULTS: Intervals: Rate: 66 TN: 160 QRSD: 160 QT: 496 QTc: 519 [place]: P: 35 TN: 160 QRS: 27 T: 224 INTERPRETIVE STATEMENTS: Normal sinus rhythm Left bundle branch block Abnormal ECG Compared to ECG 02/14/2018 21:36:46 No significant changes Electronically Signed On 02-19-18 11:57:55 OPERATIONS SUPERINTENDENT by Toi Johns
[2018-02-19] MEDS ORDERED: HYDRALAZINE HCL 20 MG/ML VIAL IV ONE (12:18)
[2018-02-19 14:44] VITALS: BP 183/83; TEMP 97.5
--- NOTE | 2018-02-20 06:36 | DS ---
Date of Discharge: 02/19/2018 Consultants: Dr. Quiroga with Nephrology, Dr. Grant with Orthopedics. Procedures: None. Admitting Diagnoses: 1. Acute kidney injury superimposed on chronic kidney disease. 2. hyperkalemia. 3. Status post fall, initial encounter. 4. Diabetes mellitus type 2 without long-term use of insulin with hyperglycemia. Discharge Diagnoses: 1. Acute kidney injury on chronic kidney disease, stage 3, improving. 2. Electrolyte disturbance 3. Diabetes mellitus type 2 without long-term use of insulin with chronic kidney disease, stage 3. 4. Sacral ala fracture, present on admission. Status post fall. No neurological deficit. 5. Old left virgen pelvic fracture, pathologic. The patient has osteopenia. 6. Status post fall, mechanical. 7. Osteopenia. 8. Pancytopenia. The patient has had previous history of pancytopenia, which she stated related to her arthritis medication, which she no longer takes. The patient's white count is 2.9, however, absolute neutrophil count is still good at 1400 and low platelets as well as low hemoglobin. We will hold Lovenox for now. We will continue to monitor. The patient has seen wireless technician in the past. Recommend continued surveillance and followup. The patient is on Plavix. Hospital Course: The patient is a 62-year-old female with past medical history of chronic kidney disease, diabetes, osteopenia, came in status post fall and was found to have a sacral ala fracture. Evaluated by Orthopedics with no intervention. PT was continued. The patient also has old left virgen-pelvic fracture with hardware present. The patient had some reamf-lw-ehocbqn kidney injury with creatinine level is elevated above her baseline. Creatinine level is 3.24. The patient was started on IV fluids. Her creatinine did improve back to her baseline. She was seen by Dr. Quiroga with Nephrology. Her baseline is close to 2. The patient did have some electrolyte abnormalities, which were corrected. The patient was then able to ambulate with assist. With physical therapy, her pain is better controlled. She did develop some pancytopenia. As mentioned above, she will need to follow up with her wireless technician as an outpatient. The patient was then referred to inpatient rehab for physical therapy, as she is at full risk. The patient will be discharged once accepted. Medications: As per medication reconciliation list. Followup: Follow up with primary care physician in 2 to 3 days. Follow up with explosive technician, Dr. Quiroga, in 2 weeks. Follow up with wireless technician in 1 week. Repeat CBC in 1 week. Diet: Diabetic, renal diet. Activity: Fall precautions as per rehab. Physical Examination: General: Awake, alert, oriented x3. No acute distress. Elderly female. CV: S1, S2. Regular rate and rhythm. Peripheral pulses present. Respiratory: Moving air well bilaterally. No wheezing. Gastrointestinal: Abdomen is soft, nontender, nondistended. Positive bowel sounds. Extremities: No clubbing, cyanosis, or edema. Neurologic: Nonfocal. Musculoskeletal: Decreased range of motion, left lower extremity. Tenderness to palpation in the sacral area. Total time spent discharging the patient was 39 minutes. SUKHDEV Voice ID: [id number] Report ID: [id number] MTDD
== END 2018-02-19 14:50 | DRG 683 ==
LOC: ER 20:31 → ERHOLD 23:37 → 2ND 02-15 00:46
PROVIDERS: ADMIT Internal Medicine; ATTEND Internal Medicine
DX: I12.9 Hypertensive chronic kidney disease with stage 1 through stage 4 chronic kidney disease, or unspecified chronic kidney disease (principal); S32.111A Minimally displaced Zone I fracture of sacrum, initial encounter for closed fracture; N17.9 Acute kidney failure, unspecified; D61.818 Other pancytopenia; E11.22 Type 2 diabetes mellitus with diabetic chronic kidney disease; N18.3 Chronic kidney disease, stage 3 (moderate); E87.6 Hypokalemia; E87.5 Hyperkalemia; W07.XXXA Fall from chair, initial encounter; Y92.009 Unspecified place in unspecified non-institutional (private) residence as the place of occurrence of the external cause; M85.80 Other specified disorders of bone density and structure, unspecified site
CPT/HCPCS: 36415; 51702; 71045; 72131; 72170; 72192; 76770; 80048; 80053; 80076; 81003; 81015; 82550; 82962; 83690; 83735; 83880; 84484; 85025; 85610; 87086; 87088; 93005; 94640; 97110; 97112; 97116; 97163; 99285; J0360; J0610; J0696; J1650; J1940; J2405; J3010; J7030

== ENCOUNTER 2018-02-19 09:46 | Inpatient (IN) | payer OTHER ==
--- NOTE | 2018-02-19 11:43 | R.PREADM ---
SCREENING DATE AND TIME 02/19/2018 09:55 (TRIM SAWYER) ANTICIPATED REHAB ADMISSION DATE 02/21/2018 REFERRING FACILITY [facility] REFERRAL DATE AND TIME 02/19/2018 09:56 (TRIM SAWYER) REFERRAL ROOM# 212 ACUTE ADMIT DATE 02/14/2018 Previous Rehabilitation(s): No. REFERRING PHYSICIAN Erica Craig REHAB FACILITY [facility] CLINICAL LIAISON Maggie Marquez PHYSICIAN REVIEWER Dr. Mitul Collins M.D. MR# [id number] NAME JULEE KENNEY ADDRESS [address] [facility] [place]ONE ZIP [address] DATE OF 1955 AGE 62 SSN# [id number] GENDER female MARITAL STATUS RACE white ADMIT FROM 02 - [facility] PRE-HOSPITAL LIVING SETTING 01 - Home (private home/apt. board/care, assisted living, senior living, transitional living) HOME TYPE AND DETAILS Type of home: apartment # of levels in the residence: 1 # of steps within the residence: 0 # of steps to enter the residence: 0 PRE-HOSPITAL LIVING WITH Family/Relatives FAMILY SUPPORT Yes PRIMARY FAMILY CONTACT NAME Char Nolasco PRIMARY FAMILY CONTACT PHONE PHONE PRIMARY FAMILY CONTACT ON ADM.? no IS PRIMARY FAMILY CONTACT AUTH. REP.? no 1ST EMERGENCY CONTACT Char Nolasco 1ST CONTACT PHONE PHONE 1ST CONTACT ON ADM. no IS 1ST CONTACT AUTH. REP.? no PHONE 2ND CONTACT ON ADM.? no PATIENT EMPLOYMENT STATUS Retired (for age) PATIENT EMPLOYER No Employer PAYOR INFORMATION: 1ST PAYOR NAME MEDICARE 1ST PAYOR PHONE [phone] 1ST PAYOR INJURY/ILLNESS DUE TO ACCIDENT? No ANOTHER DEMOCRAT RESPONSIBLE? No PRIMARY REHAB/ACUTE DIAGNOSIS: Left Sacral Ala Insufficiency Fracture ONSET DATE 02/14/2018 REHAB IMPAIRMENT CATEGORY (JESICA): 07 Fracture of LE (FracLE) MEETS 60% rule PRIMARY DIAGNOSIS-RELATED SURGERIES: N/A COMORBID REHAB/ACUTE DIAGNOSES: - Non-Tiered Type 2 diabetes mellitus with diabetic neuropathy, unspecified (E11.40) - N/A Acute Kidney Injury superimposed on CKD Hyperkalemia Hypertension Anxiety Depression CAD INTERVENTIONS: - Hypertension Fluid management Medications VS - Depression Medications Psycho/social Safety - CAD 02 sats Activity management Medications VS RISK FOR COMPLICATIONS: - Hypertension CVA Hypotension AK TIA - Depression Serotonin side effects - CAD CHF Cardiac Arrest AK Pain SUMMARY OF ACUTE HOSPITALIZATION: Pt. is a 62 yo Right-handed white female. On 02/14/2018 she was admitted to [facility] with diagnosis Left Sacral Ala Ins ufficiency Fracture. Her impairment category is Orthopaedic Disorders 08 - Pelvic Fracture (08.3). Pre-morbidly, Pt. was independent/mod-I in Transfers Control, Communication, Social Cognition, Self-C are, Locomotion, and Sphincter Control; and she had good Sphincter Control. Currently, she has deficits of Safety Awareness, Transfers Control, Balance, Locomotion, Endurance, a nd Self-Care. Pt. is now referred to [facility] for acute in-patient rehabilitation in order to maximize patient's functional independence in activities of daily living, strength, ROM, and mobi lity. Patient has realistic goal of being discharged at assistance level 6-Bushra to reside at Home with Fam roxana/Relatives. PAST MEDICAL HISTORY Acute Kidney Injury superimposed on CKD Anxiety CAD Depression Hyperkalemia Hypertension Type 2 diabetes mellitus with diabetic neuropathy, unspecified (E11.40) PAST SURGICAL HISTORY: Stents LLE Surgery Kidney stones Left foot surgery Left wrist surgery MEDICATION ALLERGIES: PENICILLIN ENVIRONMENTAL ALLERGIES: None Known - Substance Allergies None Known - Other Allergies None Known CODE STATUS: Full code WEIGHT/HEIGHT/BMI: WEIGHT 177 lbs HEIGHT 5' 5" BMI 29.5 DIET: - Diet Type Regular - Diet - Solid Texture Regular - Diet - Liquid Texture Regular - Tube Feed N/A REVIEW OF SYSTEMS: - Gen Alert and awake Lying in bed No apparent distress Oriented to: person, time, and place - CVS RRR VITAL SIGNS Temperature: 96.5 F SBP/DBP: 179/79 Pulse: 57 Resp: 20 CURRENT SPHINCTER CONTROL: Pre-hospital bladder status: continent # of bladder accidents in the last 7 days prior to screenin Pre-hospital bowel status: continent # of bowel accidents in the last 7 days prior to screenin Last Bowel Movement Date: 02/16/2018 DETAILED CURRENT FUNCTIONAL STATUS: - Bladder accident frequency: Ind - No accidents in the past 7 days - Bowel accident frequency: Ind - No accidents in the past 7 days - Walking score based on distance walked: 2(5149ft) - Wheelchair score based on distance traveled: 0(N/A) FUNCTIONAL STATUS: - Self-Care A. Eating Ind Bushra B. Grooming Ind Ind C. Bathing Ind sup D. Dressing - Upper Ind sup E. Dressing - Lower Ind sup F. Toileting Ind Sherry - Sphincter Control G: Bladder control Ind Ind H: Bowel control Ind Ind - Transfers Control I. Bed/Chair/Wheelchair Ind Sherry J. Toilet Ind Sherry K. Tub/Shower Ind ADNO - Locomotion L. Walk/Wheelchair (C) Ind Sherry L. Walk/Wheelchair (W) Ind Sherry M. Stairs Ind ADNO - Communication N. Comprehension (B) Ind Ind O. Expression (B) Ind Ind - Social Cognition P. Social Interaction Ind Ind Q. Problem Solving Ind Ind R. Memory Ind Ind - Endurance Fair - Balance Fair - Safety Awareness Fair CURRENT FUNC. DEFICITS: Safety Awareness, Transfers Control, Balance, Locomotion, Endurance, and Self-Care THERAPY NOTES FROM ACUTE CARE: Attached. SPECIAL NEEDS: - Safety Concerns Skin breakdown precautions needed due to skin breakdown risk PATIENT NEEDS ACTIVE AND ONGOING THERAPEUTIC INTERVENTION OF MULTIPLE THERAPY DISCIPLINES, INCLUDING: - Occupational Therapy Evaluate and Treat. - Physical Therapy Evaluate and Treat. PATIENT NEEDS CLOSE MEDICAL SUPERVISION BY A REHABILITATION PHYSICIAN FOR: Bowel and Bladder Management Coordination of Treatment Team Medical and Co-Morbidity Management DVT Management Diabetes Management Pain Management PATIENT REQUIRES 24X7 REHAB NURSING FOR MEDICAL AND FUNCTIONAL MGT. OF THE FOLLOWING DEFICITS: ADL's Ambulation Bowel and Bladder Management Communication Disease Management Medication Management Patient/Family Education Providing Safe Environment Transfers PATIENT REQUIRES INTENSIVE, COORDINATED INTERDISCIPLINARY APPROACH TO REHAB: Arranging Home Equipment/Services Discharge Planning Family Intervention/Training Management Engineer/Case Management PATIENT REHAB POTENTIAL: Expected level of measurable improvement will be of a practical value to patient's functional capacit y or adaptations to impairments Has a viable Discharge Plan Medically appropriate; condition is sufficiently stable to participate in intensive rehab program Patient is able and expected to receive 3 hours of individualized therapy daily on at least 5 of ever y 7 days Patient's prognosis for significant practical improvement within a reasonable period of time appears Good DISCHARGE PLAN: - Estimated Length of Stay (days) 14. - Consensus on plan Discharge plan has been discussed with primary caregiver. Patient/Family is in agreement with the bobby n. Primary caregiver is in agreement with the plan. - Patient/Family Goals Return home with assistance. - Planned Living Setting Upon Discharge Home, to live with Family/Relatives. RECOMMENDED CARE LEVEL: IRF RECOMMENDATION DETAILS: Recommended Admission to Comprehensive Rehabilitation Program to Increase Functional [place] SCREENER'S COMPLETENESS CONFIRMATION: - Screening Confirmation The patient data collection on this preadmission screening form is finished PHYSICIANS REVIEW AND ADMISSION DETERMINATION Admit - Based on my review of the Pre-Admission Screening results, in my medical judgment and experie nce, I concur with the findings and recommend admission to [facility], as this patient requires an IRF level of care. SIGNATURE PANEL: Clinical Liaison - [electronically] signed by Maggie Marquez on 02/19/2018 at 11:12 (TRIM SAWYER) Physician Reviewer - [electronically] signed by Dr. Mitul Collins M.D. on 02/19/2018 at 11:42 (TRIM SAWYER )
[2018-02-19] MEDS ORDERED: D50W 25 GM/50 ML SYRINGE IV PRN (15:04)
[2018-02-19] MEDS ORDERED: MAGIC MOUTHWASH 180 ML BTL PO PRN (15:04)
[2018-02-19] MEDS ORDERED: ACETAMINOPHEN 500 MG TAB PO PRN (15:04)
[2018-02-19] MEDS ORDERED: GLUCAGON 1 MG/VIAL IM PRN (15:04)
--- OUTSIDE RECORDS SUMMARY | 2018-02-19 15:07 | XMS REPORT | Clinical Summary ---
:1955 Author Organization [facility] Address [address] [place] [address] Care Team Providers Name Role Phone Leandro [...] Active Problems Problem Noted Date Atherosclerosis of craig coronary artery of craig heart with unstable 2017 angina pectoris NSTEMI [...] Care Team Description 01/27/2018 Patient Outreach Quality Kaic Preston RN 01/26/2018 Surgery Procedural Sanjay Kebede Selective coronary Cardiology MD Francisco angiography [[id number] (CPT)] 01/26/2018 Hospital Cardiology Sanjay Kebede Atherosclerosis of craig - Encounter MD Francisco coronary artery of craig 01/27/2018 heart with unstable angina pectoris (HCC) 11/08/2017 Anesthesia Event Orthopedic Mary, Malini Gastelum MD 11/08/2017 Surgery Orthopedic Denny Martinez LEFT PROXIMAL FEMUR ORIF Malini Claros MD AND ANY INDICATED PROCEDURES 11/03/2017 Surgery Procedural Sanjay Kebede Cv left heart cath [[id number] Cardiology MD Francisco (CPT)] 10/27/2017 Hospital Orthopedic [place] NSTEMI (non-ST elevated myocardial infarction) (Primary Dx); - Encounter Surgery MD Harlan Closed 2-part intertrochanteric fracture of left femur, initial encounter; 11/17/2017 Broken wrist, left, closed, initial encounter; Coronary artery disease s/p stent x 1 10/27/2017 Intake Access N/A 08/30/2017 [facility] Sleep Medicine Tom, Encounter Elizabeth Mcclain MD 08/17/2017 Transcribe Orders Sleep Medicine Bounds Wu, Obstructive sleep apnea Varsha syndrome (Primary Dx) 07/20/2017 [facility] Sleep Medicine Tom, Encounter Elizabeth Mcclain MD 07/19/2017 Transcribe Orders Sleep Medicine Bounds Wu, Obstructive sleep apnea Varsha syndrome (Primary Dx) 02/23/2017 Lab Lab Leandro Plaaz Pure hypercholesterolemia (Primary Dx); MD Mandy Idiopathic atrophic hypothyroidism; Rickets, active; Urinary tract infection without hematuria, site unspecified after 02/18/2017 Family History Medical History Relation Name Comments Alzheimer's disease Father Dementia Father Dementia Mother Diabetes Mother Other Mother Epilepsy Relation Name Status Comments Father (Age 80's) Mother Social History Tobacco Use Types Packs/Day Years Used Date Never Smoker Smokeless Tobacco: Never Used Comments: She is ; her daughters live with her. She was born in [place], [place] and raised in [place]. She worked as a site manager. Alcohol Use Drinks/Week oz/Week Comments No Sex Assigned at Date Recorded Not on file Job Start Date Occupation Industry Not on file Not on file Not on file Travel History Travel Start Travel End No recent travel history available. Last Filed Vital Signs Vital Sign Reading Time Taken Blood Pressure 149/66 01/27/2018 9:51 AM FLYER MAKER Pulse 50 01/27/2018 9:51 AM FLYER MAKER Temperature 36.3 C (97.3 F) 01/27/2018 7:44 AM FLYER MAKER Respiratory Rate 23 01/27/2018 9:51 AM FLYER MAKER Oxygen Saturation 94% 01/27/2018 9:51 AM FLYER MAKER Inhaled Oxygen Concentration - - Weight 82.4 kg (181 lb 11.2 oz) 01/26/2018 8:58 AM FLYER MAKER Height 165.1 cm (5' 5") 01/26/2018 8:58 AM FLYER MAKER Body Mass Index 30.24 01/26/2018 8:58 AM FLYER MAKER Plan of Treatment Health Maintenance Due Date Last Done Comments CERVICAL CANCER SCREENING 09/24/1975 BREAST CANCER SCREENING 2004 COLON CANCER SCREENING 2004 SHINGLES VACCINES (1 of 2) 2004 DIABETIC RETINAL EYE EXAM 01/08/2016 01/07/2015 DIABETIC FOOT EXAM 11/03/2016 11/04/2015, 11/04/2015 INFLUENZA VACCINE 09/20/2017 Implants Implanted Type Area Voucher Clerk Device Shelf Model / Identifier Expiration Serial / Date Lot Catheter Bln Otw 2.5mm 12mm Sprinter - [id number] Cardiovascular N/A: [facility] [id number] / Implanted: 11/03/2017 (Quantity not on file) Implants N/A - VASCULAR / Catheter Bln Otw 2.5mm 12mm Sprinter - [id number] Cardiovascular N/A: [facility] [id number] / Implanted: 01/26/2018 (Quantity not on file) Implants N/A - VASCULAR / Stent System 3.0 X 15mm Resolute [place]ale Otw Coronary - [id number] Coronary Stents N/A: [facility] [id number] / Implanted: 01/26/2018 (Quantity not on file) N/A - CARDIAC / RYHTYM MGMT Stent System 3.0 X 15mm Resolute [place] Otw Coronary - [id number] Coronary Stents N/A: [facility] [id number] / Implanted: 01/26/2018 (Quantity not on file) N/A - CARDIAC / RYHTYM MGMT Stent System 2.50 X 34mm Resolute Cale Rx Coronary - [id number] Coronary Stents N/A: [facility] [id number] / Implanted: 01/26/2018 (Quantity not on file) N/A - CARDIAC / RYHTYM MGMT Stent System 2.50 X 12mm Resolute [place] Otw Coronary - [id number] Coronary Stents N/A: [facility] [id number] / Implanted: 01/26/2018 (Quantity not on file) N/A - CARDIAC / RYHTYM MGMT Lock Screw Square 2.7mm X 22mm - [id number] IMPLANT Left: BIOMET TRAUMA [id number] / Implanted: 11/08/2017 (Quantity not on file) DEVICES Wrist / Lock Screw Square 2.7mm X 18mm - [id number] IMPLANT Left: BIOMET TRAUMA [id number] / Implanted: 11/08/2017 (Quantity not on file) DEVICES Wrist / Lp Non Lock 2.7mm X 14mm - [id number] IMPLANT Left: BIOMET TRAUMA [id number] / Implanted: 11/08/2017 (Quantity not on file) DEVICES Wrist / Lp Non Lock 2.7mm X 20mm - [id number] IMPLANT Left: BIOMET TRAUMA [id number] / Implanted: 11/08/2017 (Quantity not on file) DEVICES Wrist / 95 Deg Condylar Plate 9 Holes/80mm/156mm - [id number] IMPLANT Left: SYNTHES TRAUMA [id number] / Implanted: 11/08/2017 (Quantity not on file) DEVICES Femur / Dvr Lock Medium L - [id number] [id number] IMPLANT Left: BIOMET [employer]UMA [id number] / Implanted: 11/08/2017 (Quantity not on file) DEVICES Wrist / Lock Screw Square 2.7mm X 16mm - [id number] IMPLANT Left: BIOMET TRAUMA [id number] / Implanted: 11/08/2017 (Quantity not on file) DEVICES Wrist / Lock Screw Square 2.7mm X 15mm - [id number] [id number] IMPLANT Left: BIOMET TRAUMA [id number] / Implanted: 11/08/2017 (Quantity not on file) DEVICES Wrist / Lock Screw Square 2.7mm X 20mm - [id number] IMPLANT Left: BIOMET TRAUMA [id number] / Implanted: 11/08/2017 (Quantity not on file) DEVICES Wrist / Screw Bone Joel Slf-Tap W/ Lg Hxgnl Socket Ss 4.5x36mm - [id number] Orthopedic Trauma Left: SYNTHES TRAUMA 214 836 / Implanted: 11/08/2017 (Quantity not on file) Implants Femur AND RECON / Screw Bone Joel Slf-Tap W/ Lg Hxgnl Socket Ss 4.5x38mm - [id number] Orthopedic Trauma Left: SYNTHES TRAUMA 214 838 / Implanted: 11/08/2017 (Quantity not on file) Implants Femur AND RECON / Screw Bone Joel Slf-Tap W/ Lg Hxgnl Socket Ss 4.5x42mm - [id number] Orthopedic Trauma Left: SYNTHES TRAUMA 214 842 / Implanted: 11/08/2017 (Quantity not on file) Implants Femur AND RECON / Screw Bone Joel Slf-Tap W/ Lg Hxgnl Socket Ss 4.5x44mm - [id number] Orthopedic Trauma Left: SYNTHES TRAUMA 214 844 / Implanted: 11/08/2017 (Quantity not on file) Implants Femur AND RECON / Screw Bone Joel Slf-Tap W/ Lg Hxgnl Socket Ss 4.5x48mm - [id number] Orthopedic Trauma Left: SYNTHES TRAUMA 214 848 / Implanted: 11/08/2017 (Quantity not on file) Implants Femur AND RECON / Screw Bone Joel Slf-Tap W/ Lg Hxgnl Socket Ss 4.5x90mm - [id number] Orthopedic Trauma Left: SYNTHES TRAUMA 214 890 / Implanted: 11/08/2017 (Quantity not on file) Implants Femur AND RECON / Screw Bone Canltd Thred Lg Hxgnl Socket Ss [id number] - [id number] Orthopedic Trauma Left: SYNTHES TRAUMA 208 875 / Implanted: 11/08/2017 (Quantity not on file) Implants Femur AND RECON / System Clsr Sut Meditd 6fr Perclose Proglide - [id number] Surgical N/A: EVANS 08/20/2019 [id number] / Implanted: 11/03/2017 (Quantity not on file) Implants; N/A VASCULAR / Expanders; DEVICES [id number] Extenders; Surgical Wires Explanted Type Area Voucher Clerk Device Shelf Model / Identifier Expiration Serial / Date Lot Lock Screw Square 2.7mm X 14mm - [id number] IMPLANT Left: BIOMET TRAUMA [id number] / Implanted: 11/08/2017 (Quantity not on file) DEVICES Wrist / Explanted: 11/08/2017 (Quantity not on file) Screw Bone Canltd Thred Lg Hxgnl Socket Ss [id number] - [id number] Orthopedic Left: SYNTHES TRAUMA 208 880 / Implanted: 11/08/2017 (Quantity not on file) Trauma Femur AND RECON / Explanted: 11/08/2017 (Quantity not on file) Implants Screw Bone Canltd Thred Lg Hxgnl Socket Ss [id number] - [id number] Orthopedic Left: SYNTHES TRAUMA 208 890 / Implanted: 11/08/2017 (Quantity not on file) Trauma Femur AND RECON / Explanted: 11/08/2017 (Quantity not on file) Implants Procedures Procedure Name Priority Date/Time Associated Diagnosis Comments POC GLUCOSE Routine 01/27/2018 8:30 Results for AM FLYER MAKER this procedure are in the results section. SMEAR REVIEW Routine 01/27/2018 4:10 Results for AM FLYER MAKER this procedure are in the results section. HC COMPLETE BLD COUNT Routine 01/27/2018 4:10 Results for W/AUTO DIFF AM FLYER MAKER this procedure are in the results section. ESTIMATED GFR Routine 01/27/2018 4:00 Results for AM FLYER MAKER this procedure are in the results section. BASIC METABOLIC PANEL Routine 01/27/2018 4:00 Results for AM FLYER MAKER this procedure are in the results section. ECG 12-LEAD Routine 01/27/2018 3:59 Results for AM FLYER MAKER this procedure are in the results section. POC GLUCOSE Routine 01/26/2018 6:00 Results for PM FLYER MAKER this procedure are in the results section. ESTIMATED GFR Routine 01/26/2018 6:00 Results for PM FLYER MAKER this procedure are in the results section. CREATININE LEVEL Routine 01/26/2018 6:00 Results for PM FLYER MAKER this procedure are in the results section. POC GLUCOSE Routine 01/26/2018 2:51 Results for PM FLYER MAKER this procedure are in the results section. ECG PRE/POST OP Routine 01/26/2018 1:13 Results for PM FLYER MAKER this procedure are in the results section. CV PCI STENT Routine 01/26/2018 1:03 Atherosclerosis of Results for PM FLYER MAKER craig coronary artery this procedure of craig heart with are in the unstable angina pectoris results (HCC) section. CV SELECTIVE CORONARY Routine 01/26/2018 1:03 Atherosclerosis of Results for ANGIOGRAPHY PM FLYER MAKER craig coronary artery this procedure of craig heart with are in the unstable angina pectoris results (HCC) section. ACTIVATED CLOTTING Routine 01/26/2018 12:07 Results for TIME PM FLYER MAKER this procedure are in the results section. POC PANEL Routine 01/26/2018 9:30 Results for AM FLYER MAKER this procedure are in the results section. ESTIMATED GFR Routine 01/26/2018 9:30 Results for AM FLYER MAKER this procedure are in the results section. ECG 12-LEAD STAT 01/26/2018 8:44 Results for AM FLYER MAKER this procedure are in the results section. POC GLUCOSE Routine 01/26/2018 8:40 Results for AM FLYER MAKER this procedure are in the results section. [...] left femur, are in the initial encounter ([facility]) results Broken wrist, left, section. closed, initial [...] this procedure are in the results section. ND AN ELECTIVE Routine 11/08/2017 9:48 ENDOTRACHEAL AIRWAY AM CDT Procedure Note - Patel Becker CRNA - 11/08/2017 9:48 AM CDT Airway Date/Time: 11/08/2017 8:27 AM Performed by: PATEL BECKER Authorized by: NEIL LEMUS Location: OR Urgency: Elective Difficult Airway: No Resident/BUSINESS AND SERVICES INSTRUCTOR/AA: PATEL BECKER Performed by: resident/BUSINESS AND SERVICES INSTRUCTOR/AA Preoxygenated with 100% O2: Yes C-spine Precautions [...] @1302 VIA ACTIVE FAX ADDED TO PROC/CODES, @1449 EDUARDO R/S FROM 10/31 TO 11/01-10/30/17TW, @1413 [...] are in SPECTRAL COLOR DOPPLER the results (79597) section. POC GLUCOSE Routine 10/29/2017 3:56 Results [...] Routine 02/23/2017 3:40 Results for this PM FLYER MAKER procedure are in the results section. VITAMIN D 1,25 Routine 02/23/2017 3:40 Pure Results for this DIHYDROXY LEVEL, SERUM PM FLYER MAKER hypercholesterolemi procedure are in a the results Idiopathic atrophic section. hypothyroidism Rickets, active Urinary tract infection without hematuria, site unspecified URINALYSIS, AUTOMATED Routine 02/23/2017 3:40 Pure Results for this WITH MICROSCOPY PM FLYER MAKER hypercholesterolemi procedure are in a the results Idiopathic atrophic section. hypothyroidism Rickets, active Urinary tract infection without hematuria, site unspecified VITAMIN D 25 HYDROXY Routine 02/23/2017 3:40 Pure Results for this LEVEL PM FLYER MAKER hypercholesterolemi procedure are in a the results Idiopathic atrophic section. hypothyroidism Rickets, active Urinary tract infection without hematuria, site unspecified HEMOGLOBIN A1C Routine 02/23/2017 3:40 Pure Results for this PM FLYER MAKER hypercholesterolemi procedure are in a the results Idiopathic atrophic section. hypothyroidism Rickets, active Urinary tract infection without hematuria, site unspecified C-REACTIVE PROTEIN Routine 02/23/2017 3:40 Pure Results for this PM FLYER MAKER hypercholesterolemi procedure are in a the results Idiopathic atrophic section. hypothyroidism Rickets, active Urinary tract infection without hematuria, site unspecified SEDIMENTATION RATE Routine 02/23/2017 3:40 Pure Results for this PM FLYER MAKER hypercholesterolemi procedure are in a the results Idiopathic atrophic section. hypothyroidism Rickets, active Urinary tract infection without hematuria, site unspecified COMPREHENSIVE METABOLIC Routine 02/23/2017 3:40 Pure Results for this PANEL PM FLYER MAKER hypercholesterolemi procedure are in a the results Idiopathic atrophic section. hypothyroidism Rickets, active Urinary tract infection without hematuria, site unspecified HC COMPLETE BLD COUNT Routine 02/23/2017 3:40 Pure Results for this W/AUTO DIFF PM FLYER MAKER hypercholesterolemi procedure are in a the results Idiopathic atrophic section. hypothyroidism Rickets, active Urinary tract infection without hematuria, site unspecified after 02/18/2017 Results POC glucose (01/27/2018 8:30 AM FLYER MAKER)Only the most recent of133 resultswithin the time period is included. POC glucose 157 (H) 65 - 99 mg/dL [facility] Comment: [facility] Notified RN Meter ID: [id number] Small Kick Press Operator: Chao Crandall Performing Organization Address City/[facility]/Zipcode Phone Number [facility] DEPARTMENT OF PATHOLOGY AND [address] [place] [id number] [place] [phone] Smear review (01/27/2018 4:10 AM FLYER MAKER)Only the most recent of2 resultswithin the time period is included. Platelet slide review [place] adequate [facility] Anisocytosis Moderate [facility] Polychromasia Moderate [facility] Ovalocytes Moderate [facility] Performing Organization Address City/[facility]/Zipcode Phone Number [facility] DEPARTMENT OF PATHOLOGY AND [address] [place] [phone] [place] [phone] CBC with platelet and differential (01/27/2018 4:10 AM FLYER MAKER)Only the most recent of21 resultswithin the time period is included. WBC 4.54 4.50 - 11.00 k/uL [facility] RBC 3.50 (L) 4.20 - 5.50 m/uL [facility] HGB 10.8 (L) 12.0 - 16.0 g/dL [facility] HCT 34.9 (L) 37.0 - 47.0 % [facility] MCV 99.7 82.0 - 100.0 fL [facility] MCH 30.9 27.0 - 34.0 pg [facility] MCHC 30.9 (L) 31.0 - 37.0 g/dL [facility] RDW - [place] 48.5 37.0 - 55.0 fL [facility] MPV 10.9 8.8 - 13.2 fL [facility] Platelet count 205 150 - 400 k/uL [facility] Nucleated RBC 0.00 /100 WBC [facility] Neutrophils 59.3 39.0 - 69.0 % [facility] Lymphocytes 27.1 25.0 - 45.0 % [facility] Monocytes 10.4 (H) 0.0 - 10.0 % [facility] Eosinophils 2.4 0.0 - 5.0 % [facility] Basophils 0.4 0.0 - 1.0 % [facility] Immature granulocytes 0.4Comment: "Immature 0.0 - 1.0 % [facility]" [facility] (promyelocytes, myelocytes, metamyelocytes) Specimen Blood Performing Organization Address City/State/Zipcode Phone Number [facility] DEPARTMENT OF PATHOLOGY AND [address] [place] [address] GEN[address] [address] Estimated GFR (01/27/2018 4:00 AM FLYER MAKER)Only the most recent of24 resultswithin the time period is included. Estimated GFR 23 (A) mL/min/1.73 m2 [facility] Comment: HOSPITAL CatergoryUnitsInterpretation G1 >=90 Normal or high G2 60-89Mildly decreased K3a90-04Ttryxi to moderately decreased G4v50-90Vxlxewusck to severely decreased G4 15-29Severely decreased G5 <15Kidney failure The eGFR was calculated using the Chronic Kidney Disease Epidemiology Collaboration (CKD-EPI) equation. Interpretation is based on recommendations of the National Kidney Foundation-Kidney Disease Outcomes Quality Initiative (NKF-KDOQI) published in 2014. Specimen Plasma specimen Performing Organization Address City/[facility]/Zipcode Phone Number [facility] DEPARTMENT OF PATHOLOGY AND [address] [place] [address] [address] Basic metabolic panel (01/27/2018 4:00 AM FLYER MAKER)Only the most recent of21 resultswithin the time period is included. Sodium 136 135 - 148 mEq/L [facility] Potassium 5.2 (H) 3.5 - 5.0 mEq/L [facility] Chloride 103 98 - 112 mEq/L [facility] CO2 19 (L) 24 - 31 mEq/L [facility] Anion gap 14@ANIO 7 - 15 mEq/L [facility] BUN 38 (H) 8 - 23 mg/dL [facility] Creatinine 2.20 (H) 0.50 - 0.90 mg/dL [facility] Glucose 134 (H) 65 - 99 mg/dL [facility] Calcium 9.0 8.8 - 10.2 mg/dL [facility] Specimen Plasma specimen Performing Organization Address [facility] Phone Number [facility] DEPARTMENT OF PATHOLOGY AND [address] [place] [address] [address] ECG 12 lead (01/27/2018 3:59 AM FLYER MAKER)Only the most recent of8 resultswithin the time period is included. Ventricular rate 53 [facility] Atrial rate 53 [facility] ND interval 180 [facility] QRSD interval 146 [facility] QT interval 586 [facility] QTC interval 549 [facility] P axis 1 28 [facility] QRS axis 1 23 [facility] T wave axis 167 [facility] EKG impression Sinus bradycardia-Left bundle branch [facility] MUSE block-Abnormal ECG-In automated comparison with ECG of 26-JAN-2018 13:13,-No significant change was found- Narrative Performed At Performing Organization Address City/[facility] Cent[facility]ode Phone Number [facility] MUSE [address] [place] [address] Creatinine level (01/26/2018 6:00 PM FLYER MAKER) Creatinine 2.18 (H) 0.50 - 0.90 mg/dL [facility] Specimen Plasma specimen Performing Organization Address [facility]d Phone Number [facility] DEPARTMENT OF PATHOLOGY AND [address] [place] [address] GENOMIC MEDICINE [facility] [address] [place] [address] ECG Pre/Post Op (in AM) (01/26/2018 1:13 PM FLYER MAKER)Only the most recent of2 resultswithin the time period is included. Ventricular rate 57 [facility] Atrial rate 57 [facility] ND interval 134 [facility] QRSD interval 142 [facility] QT interval 562 [facility] QTC interval 547 [facility] P axis 1 25 [facility] QRS axis 1 33 [facility] T wave axis 197 [facility] EKG impression Sinus bradycardia-Left bundle branch [facility] MUSE block-Abnormal ECG-In automated comparison with ECG of 26-JAN-2018 08:44,-No significant change was found- Narrative Performed At Performing Organization Address City/[facility]osd Phone Number [facility] MUSE [address] [place] [address] Cv filling station laborer procedure (01/26/2018 1:03 PM FLYER MAKER) Narrative Performed At SURGEON:Sanjay Kebede MD MICHELLE ALPINE PATROLLER:None. TITLE OF OPERATION: 1.Left heart catheterization, selective coronary arteriogram. 2.Percutaneous coronary intervention with medicated stent to left anterior descending (x2), circumflex obtuse marginal 1 (x2). PREOPERATIVE DIAGNOSIS: Atherosclerotic vascular disease of the craig coronaries with unstable angina. POSTOPERATIVE DIAGNOSIS: Atherosclerotic vascular disease of the craig coronaries with unstable angina. ANESTHESIA: Conscious sedation [...] difficulty using standard 18-gauge [facility] needle. A 4-[place]izen [place] arterial sheath was chosen for access.A JL4 was utilized to visualize the left main coronary artery and its branches.The right coronary was not selectively injected as we knew from previous imaging that it was nondominant. The angiogram revealed that the left main had no significant disease.The proximal LAD had diffuse calcification without significant stenosis. Immediately after the first septal thermite bomb loader, there was an eccentric 70% to 80% [...] reviewed, we proceeded with percutaneous intervention. The 4-[place]izen [place] sheath was exchanged for a 6-[place]izen [place] sheath.We then utilized a 6-[place] EBU 3.75 diagnostic guide.The patient received Angiomax [...] to preexisting renal insufficiency. Performing Organization Address [facility] Phone Number [facility] [address] [place] [address] Activated clotting time (01/26/2018 12:07 PM FLYER MAKER)Only the most recent of2 resultswithin the time period is included. Activated clotting time 302 (H) 96 - 152 sec [facility] Comment: HOSPITAL Meter ID: [id number] Small Kick Press Operator: Junito Perea Performing Organization Address [facility]d Phone Number [facility] DEPARTMENT OF PATHOLOGY AND [address] [place] [address] GENOMIC MEDICINE [address] [address] POC panel (01/26/2018 9:30 AM FLYER MAKER) POC sodium 141 135 - 148 mmol/L [facility] POC potassium 4.8 3.5 - 5.0 mmol/L [facility] POC chloride 109 99 - 109 mmol/L [facility] POC CO2 21 (L) 24 - 31 mmol/L [facility] POC glucose 130 (H) 65 - 99 mg/dL [facility] POC BUN 41 (H) 8 - 24 mg/dL [facility] POC creatinine 2.3 (H) 0.5 - 0.9 mg/dl [facility] POC hematocrit 34 (L) 37 - 47 % [facility] POC anion gap 17 8 - 20 mmol/L [facility] Comment: Meter ID: [id number] Small Kick Press Operator: Mary Price Performing Organization Address City/State/Zipcode Phone Number [facility] DEPARTMENT OF PATHOLOGY AND [address] [place] [address] GENOMIC MEDICINE [facility] [address] [place] [address] XR Femur 2 Vw Left (11/13/2017 9:34 [...] left femoral diaphyses, partially obscured. Vascular calcifications. [facility]-[id number] Procedure Note Interface, Radiology Results Incoming - 11/13/2017 9:50 AM CDT EXAMINATION: XR FEMUR 2 VW LEFT INDICATION: Fracture femur COMPARISON: 11/08/2017 IMPRESSION: Surgical changes status post proximal and distal plate and screw fixation. No evidence of acute hardware complication. Diffuse osteopenia. Healing fractures proximal and distal left femoral diaphyses, partially obscured. Vascular calcifications. [facility]-[id number] Performing Organization Address [facility]/Zipcode Phone Number [facility] [address] [place] [address] XR Wrist 2 Vw Left (11/12/2017 7:14 PM CDT)Only the most recent of2 resultswithin the time period is included. Narrative Performed At EXAMINATION:XR WRIST 2 VW LEFT [facility] CLINICAL HISTORY:postop COMPARISON:To previous study from 11/07/2017. IMPRESSION: Internal fixation across a comminuted fracture of the distal radius has been placed. Comminuted fracture of the ulna is again noted. [facility]-[id number] Procedure Note Interface, Radiology Results Incoming - 11/12/2017 7:20 PM CDT EXAMINATION: XR WRIST 2 VW LEFT CLINICAL HISTORY: postop COMPARISON: To previous study from 11/07/2017. IMPRESSION: Internal fixation across a comminuted fracture of the distal radius has been placed. Comminuted fracture of the ulna is again noted. [facility]-[id number] Performing Organization Address City/[facility]/Zipcode Phone Number [facility] [address] [place] [address] XR Abdomen 1 Vw Portable (11/12/2017 3:53 PM CDT)Only the most recent of4 resultswithin the time period is included. Narrative Performed At EXAMINATION:XR ABDOMEN 1 VW PORTABLE [facility] CLINICAL HISTORY:constipation COMPARISON:To previous examination from 11/09/2017 FINDINGS: Very large amount of feces is noted throughout the colon. There is no evidence of small bowel distention. IMPRESSION: Findings consistent with constipation. [facility]-[id number] Procedure Note Interface, Radiology Results Incoming - 11/12/2017 4:10 PM CDT EXAMINATION: XR ABDOMEN 1 VW PORTABLE CLINICAL HISTORY: constipation COMPARISON: To previous examination from 11/09/2017 FINDINGS: Very large amount of feces is noted throughout the colon. There is no evidence of small bowel distention. IMPRESSION: Findings consistent with constipation. [facility]-[id number] Performing Organization Address [facility] Phone Number [facility] [address] [place] [address] XR Chest 1 Vw Portable (11/12/2017 6:11 AM CDT)Only the most recent of9 resultswithin the time period is included. Narrative Performed At EXAMINATION:XR CHEST 1 VW PORTABLE [facility] CLINICAL HISTORY: Ventilator Patient COMPARISON:11/11/2017 IMPRESSION: Right jugular line in place. Stable cardiomegaly with mild congestive failure and perihilar edema. Small effusions present. There is mild basilar volume loss. No pneumothorax. [facility]-[id number] Procedure Note Interface, Radiology Results Incoming - 11/12/2017 7:52 AM CDT EXAMINATION: XR CHEST 1 VW PORTABLE CLINICAL HISTORY: Ventilator Patient COMPARISON: 11/11/2017 IMPRESSION: Right jugular line in place. Stable cardiomegaly with mild congestive failure and perihilar edema. Small effusions present. There is mild basilar volume loss. No pneumothorax. [facility]-[id number] Performing Organization Address [facility] Phone Number [facility] [address] [place] [address] Phosphorus level (11/12/2017 1:05 AM CDT)Only the most recent of17 resultswithin the time period is included. Phosphorus 4.4 2.4 - 4.5 mg/dL [facility] DEPARTMENT OF PATHOLOGY AND GENOMIC MEDICINE Specimen Plasma specimen Performing Organization Address [facility]/Zipcode Phone Number [facility] DEPARTMENT OF PATHOLOGY AND [address] [place] [address] Magnesium level (11/12/2017 1:05 AM CDT)Only the most recent of17 resultswithin the time period is included. Magnesium 1.9 1.6 - 2.4 mg/dL [facility] DEPARTMENT OF PATHOLOGY AND GENOMIC MEDICINE Specimen Plasma specimen Performing Organization Address [facility] Phone Number [facility] DEPARTMENT OF PATHOLOGY AND [address] [place] [address] Ionized calcium (11/12/2017 1:05 AM CDT)Only the most recent of11 resultswithin the time period is included. pH 7.43 [facility] DEPARTMENT OF PATHOLOGY AND GENOMIC MEDICINE Ionized calcium 1.15 1.11 - 1.32 mmol/L [facility] DEPARTMENT OF PATHOLOGY AND GENOMIC MEDICINE Specimen Plasma specimen Performing Organization Address [facility] Phone Number [facility] DEPARTMENT OF PATHOLOGY AND [address] [place] [address] Prothrombin time with INR (11/12/2017 12:50 AM CDT)Only the most recent of9 resultswithin the time period is included. Prothrombin time 15.3 (H) 12.0 - 15.0 sec [facility] DEPARTMENT OF PATHOLOGY AND GENOMIC MEDICINE INR 1.2 [facility] DEPARTMENT OF Comment: PATHOLOGY AND GENOMIC The International Normalized Ratio (INR) is a therapeutic MEDICINE monitoring tool for patients who are stable on oral anticoagulant therapy. An INR of 2.0-3.0 is suggested for deep vein thrombosis/pulmonary embolism. Specimen Blood Performing Organization Address [facility] Phone Number [facility] DEPARTMENT OF PATHOLOGY AND [address] [place] [address] Hemoglobin & hematocrit (11/11/2017 8:52 AM CDT)Only the most recent of6 resultswithin the time period is included. HGB 8.0 (L) 12.0 - 16.0 g/dL [facility] DEPARTMENT OF PATHOLOGY AND GENOMIC MEDICINE HCT 25.8 (L) 37.0 - 47.0 % [facility] DEPARTMENT OF PATHOLOGY AND GENOMIC MEDICINE Specimen Blood Performing Organization Address City/[facility]ode Phone Number [facility] DEPARTMENT OF PATHOLOGY AND [address] [place] [address] Troponin (11/10/2017 4:14 PM CDT)Only the most recent of14 resultswithin the time period is included. Troponin <0.30 0.00 - 0.30 ng/mL [facility] DEPARTMENT OF PATHOLOGY Comment: AND GENOMIC MEDICINE 0.30 - 1.49 ng/mlMay indicate increased risk of acute coronary syndrome. >=1.5 ng/mlConsistent with acute myocardial infarction. The diagnostic value of a single normal or non-diagnostic result is questionable.Serial samples at 2-6 hour intervals are required to rule out acute myocardial injury. Specimen Plasma specimen Performing Organization Address City/[facility] Cent[facility]ode Phone Number [facility] DEPARTMENT OF PATHOLOGY AND [address] [place] [address] Arterial blood gas (11/10/2017 2:34 PM CDT)Only the most recent of7 resultswithin the time period is included. pH, arterial 7.46 (H) 7.35 - 7.45 [facility] DEPARTMENT OF PATHOLOGY AND GENOMIC MEDICINE pCO2, arterial 31 (L) 35 - 45 mmHg [facility] DEPARTMENT OF PATHOLOGY AND GENOMIC MEDICINE pO2, arterial 74 (L) 80 - 90 mmHg [facility] DEPARTMENT OF PATHOLOGY AND GENOMIC MEDICINE Bicarbonate, arterial 21.4 21.0 - 28.0 mmol/L [facility] DEPARTMENT OF PATHOLOGY AND GENOMIC MEDICINE Base excess, arterial -2 -2 - 2 mEq/L [facility] DEPARTMENT OF PATHOLOGY AND GENOMIC MEDICINE O2 saturation, arterial 99 95 - 100 % [facility] DEPARTMENT OF PATHOLOGY AND GENOMIC MEDICINE Specimen Blood Performing Organization Address [facility] Phone Number [facility] DEPARTMENT OF PATHOLOGY AND [address] [place] [address] Ionized calcium, arterial (11/10/2017 3:00 AM CDT)Only the most recent of4 resultswithin the time period is included. Ionized calcium, arterial 1.05 (L) 1.11 - 1.32 mmol/L [facility] DEPARTMENT OF PATHOLOGY AND [employer] [facility] Specimen Blood Performing Organization Address City/[facility]ode Phone Number [facility] DEPARTMENT OF PATHOLOGY AND [address] [place] [address] Partial thromboplastin time, activated (11/10/2017 3:00 AM CDT)Only the most recent of13 resultswithin the time period is included. PTT 34.3 23.0 - 36.0 sec [facility] DEPARTMENT OF PATHOLOGY Comment: AND [facility] PTT therapeutic range for unfractionated heparin is 61.0-112.0 seconds which corresponds to Anti-Xa 0.3-0.7 U/ml. Specimen Blood Performing Organization Address [facility] Centercode Phone Number [facility] DEPARTMENT OF PATHOLOGY AND [address] [place] [address] Fibrinogen (11/10/2017 3:00 AM CDT) Fibrinogen 496 (H) 200 - 450 mg/dL [facility] DEPARTMENT OF PATHOLOGY AND [facility] Specimen Blood Performing Organization Address [facility] Centercosd Phone Number [facility] DEPARTMENT OF PATHOLOGY AND [address] [place] [address] Echocardiogram 2d limited (11/08/2017 3:56 PM CDT) Narrative Performed At [facility] Echocardiography Report [address] [place] [address] Pat.Name:VIRI JEFFERSON Pat.ID:[id number] .Date: 11/08/2017 Refer.MD:ROSA LOPEZ MD Exam Time: 3:15:00 PMStudy Type:Routine Echo Height:65inWeight: 184lb BSA: 1.91 m2 DOBAge:1955,62Y Sex: FEMALEBP:174/72 HR:47 bpmSonogrphr: Jessie Del Rio RDCS Pat. Stat.:Inpatient Room:[place] [address] Study Status:Final Echo Event ID:[id number] Order ID:[id number] Reason for Study:Myocardial Ischemia/ Infarction - Eval of a patient without chest pain but with other features of an ischemic equivalent or laboratory markers indicative of ongoing [place] History / Clinical:Diabetes, Hypertension, [place], Rheumatoid Arthritis Procedures:Strain, Portable, 2D Echo,Colorflow Doppler [...] LV filling pressures. MEASUREMENTS: 2D Parasternal [place] LVOT 1.9 cmIVSd 1 cm Ao An2.1 cmLVPWd1.2 cm Ao Rtd 2.9 cmIndex1.5 cm/m LA Ds4 cm LVIDd5 cmIndex2.6 cm/m LV Gseu589.1 g(87-129) LVIDs3.6 cmLVM Tuyvg584.4 g/m2 LV%fs 28 % RWT0.5 LA Sng Plane LA Area 21.1 cm2(8.8-23.4) LA Vol67.2 ml Index35.2 ml/m LA LngAx 5.2 cm RA Sng Plane RA Area 12.7 cm2(8.3-19.5) RA Vol30.3 ml Index15.9 ml/m RA LngAx 4.4 cm DOPPLER LVOT Stroke Vol LVOT 1.9 cmLVOT CO4.3 l/min LVOT TVI27.2 cmLVOT CI2.3 l/m/m2 LVOT Tm362 ecwvSE16 bpm LVOT SV 77 ml WALL MOTION: RESTING WALL MOTION: Mid Inferoseptal, Apical Septal hernandez are hypokinetic.Basal Anterior, Basal Anteroseptal, Basal Inferoseptal, Mid Anterior, Mid Anteroseptal, Apical Anterior, Apical Inferior, Apical hernandez are mildly hypokinetic. Normal in all other hernandez. Wall Index=1.4 Signed 11/08/2017 05:21 PM Neil Santos M.D. Procedure Note Interface, Radiology Results In - 11/08/2017 5:22 PM CDT Echocardiography Report [address] [place] [address] Pat.Name: VIRI JEFFERSON Pat.ID: [id number] .Date: 11/08/2017 Refer.MD: ROSA LOPEZ MD Exam Time: 3:15:00 PM Study Type:Routine Echo Height: 65in Weight: 184lb BSA: 1.91 m2 Age: 8 1955,62Y Sex: FEMALE BP: 174/72 HR: 47 bpm Sonogrphr: Jessie Del Rio RDCS Pat. Stat.:Inpatient Room: [place] [address] Study Status:Final Echo Event ID:[id number] Order ID: [id number] Reason for Study:Myocardial Ischemia/ Infarction - Eval of a patient without chest pain but with other features of an ischemic equivalent or laboratory markers indicative of ongoing [place] History / Clinical:Diabetes, Hypertension, [place], Rheumatoid Arthritis Procedures:Strain, Portable, 2D Echo,Colorflow Doppler [...] LV filling pressures. MEASUREMENTS: 2D Parasternal [place] LVOT 1.9 cm IVSd 1 cm Ao [...] M.D. Performing Organization Address City/State/Zipcode Phone Number [facility] [address] [place] [address] Pv duplex venous lower extremity (11/08/2017 3:54 PM CDT) Narrative Performed At [facility] Vascular Ultrasound Laboratory Lower Extremity Venous Report [address] [place] [address] Pat.Name:VIRI JEFFERSON Pat.ID:[id number] .Date: 11/08/2017 Refer.MD:ROSA LOPEZ MD Exam Time: 3:26:00 PMStudy Type:LE Venous DOBAge:1955,62YSex: FEMALE Sonogrphr: Taye Sotelo, MONI, PARTH Pat. Stat.:Inpatient Room:[place] [address]TapeVol: MCKAYLA, CPT - 4: 57087 Echo Event ID:[id number] Order ID:[id number] Reason for Study:Pulmonary embolism suspected, high pretest [...] Ultrasound Laboratory Lower Extremity Venous Report [address]Name: VIRI JEFFERSON Pat.ID: [id number] St.Date: 11/08/2017 Refer.MD: ROSA LOPEZ MD Exam Time: 3:26:00 PM Study Type:LE Venous Age: 8 1955,62Y Sex: FEMALE Sonogrphr: MONI Farr, PARTH Pat. Stat.:Inpatient Room: [facility] [address] Tape Vol: MCKAYLA, CPT - 4: 09025 Echo Event ID:[id number] Order ID: [id number] Reason for Study:Pulmonary embolism suspected, high pretest [...] Organization Address City/State/Zipcode Phone Number [facility] [address] [place] [address] Urinalysis screen and microscopy, with reflex to culture (11/08/2017 3:25 PM CDT)Only the most recent of3 resultswithin the time period is included. Specimen site Catheterized [facility] DEPARTMENT OF PATHOLOGY AND GENOMIC MEDICINE Color, UA Yellow [facility] DEPARTMENT OF PATHOLOGY AND GENOMIC MEDICINE Appearance, UA Cloudy [facility] DEPARTMENT OF PATHOLOGY AND GENOMIC MEDICINE Specific gravity, UA 1.020 1.001 - 1.035 [facility] DEPARTMENT OF PATHOLOGY AND GENOMIC MEDICINE pH, UA 5.0 5.0 - 8.5 [facility] DEPARTMENT OF PATHOLOGY AND GENOMIC MEDICINE Protein, UA 2+ (A) Negative [facility] DEPARTMENT OF PATHOLOGY AND GENOMIC MEDICINE Glucose, UA 3+ (A) Negative [facility] DEPARTMENT OF PATHOLOGY AND GENOMIC MEDICINE Ketones, UA Trace (A) Negative [facility] DEPARTMENT OF PATHOLOGY AND GENOMIC MEDICINE Bilirubin, UA Negative Negative [facility] DEPARTMENT OF PATHOLOGY AND GENOMIC MEDICINE Blood, UA Moderate (A) Negative [facility] DEPARTMENT OF PATHOLOGY AND GENOMIC MEDICINE Nitrite, UA Negative Negative [facility] DEPARTMENT OF PATHOLOGY AND GENOMIC MEDICINE Urobilinogen, UA <2.0 <2.0 [facility] DEPARTMENT OF PATHOLOGY AND GENOMIC MEDICINE Leukocyte esterase, UA Negative Negative [facility] DEPARTMENT OF PATHOLOGY AND GENOMIC MEDICINE Epithelial cells, UA 1 /HPF [facility] DEPARTMENT OF PATHOLOGY AND GENOMIC MEDICINE WBC, UA 9 (H) 0 - 4 /HPF [facility] DEPARTMENT OF PATHOLOGY AND GENOMIC MEDICINE RBC, UA 5 0 - 5 /HPF [facility] DEPARTMENT OF PATHOLOGY AND GENOMIC MEDICINE Bacteria, UA Moderate (A) None seen [facility] DEPARTMENT OF PATHOLOGY AND GENOMIC MEDICINE Yeast, UA None seen [facility] DEPARTMENT OF PATHOLOGY AND GENOMIC MEDICINE Yeast with pseudohyphae, UA None seen [facility] DEPARTMENT OF PATHOLOGY AND GENOMIC MEDICINE Uric acid crystals, UA Few [facility] DEPARTMENT OF PATHOLOGY AND GENOMIC MEDICINE Specimen Urine Performing Organization Address [facility] Phone Number [facility] DEPARTMENT OF PATHOLOGY AND [address] [place] [address] MEDICINE Gram stain (11/08/2017 3:25 PM CDT)Only the most recent of4 resultswithin the time period is included. Gram stain result No WBC's or organisms seen. [facility] DEPARTMENT OF PATHOLOGY Comment: AND GENOMIC MEDICINE Specimen Information Specimen Source: Urine Specimen Site: Catheterized Specimen Urine - Catheterized Performing Organization Address City/[facility] Phone Number [facility] DEPARTMENT OF PATHOLOGY AND [address] [place] [address] Urine culture (11/08/2017 3:25 PM CDT)Only the most recent of3 resultswithin the time period is included. Urine culture isolate No growth after 2 days. [facility] DEPARTMENT OF Comment: PATHOLOGY AND GENOMIC Specimen Information MEDICINE Specimen Source: Urine Specimen Site: Catheterized Specimen Urine - Catheterized Performing Organization Address [facility] Phone Number [facility] DEPARTMENT OF PATHOLOGY AND [address] [place] [address] MEDICINE LDH (11/08/2017 12:52 PM CDT) LDH 271 (H) 87 - 225 U/L [facility] DEPARTMENT OF PATHOLOGY AND GENOMIC MEDICINE Specimen Plasma specimen Performing Organization Address [facility]ode Phone Number [facility] DEPARTMENT OF PATHOLOGY AND [address] [place] [address] Lactic acid level (11/08/2017 12:52 PM CDT)Only the most recent of2 resultswithin the time period is included. Lactic acid 0.9 0.5 - 2.2 mmol/L [facility] DEPARTMENT OF PATHOLOGY AND GENOMIC MEDICINE Specimen Plasma specimen Performing Organization Address City/[facility] Phone Number [facility] DEPARTMENT OF PATHOLOGY AND [address] [place] [address] [facility] MEDICINE Hepatic function panel (11/08/2017 12:52 PM CDT) Albumin 1.9 (L) 3.5 - 5.0 g/dL [facility] DEPARTMENT OF PATHOLOGY AND GENOMIC MEDICINE Total bilirubin 0.3 0.0 - 1.2 mg/dL [facility] DEPARTMENT OF PATHOLOGY AND GENOMIC MEDICINE Bilirubin direct <0.2 0.0 - 0.3 mg/dL [facility] DEPARTMENT OF PATHOLOGY AND GENOMIC MEDICINE Alkaline phosphatase 49 35 - 104 U/L [facility] DEPARTMENT OF PATHOLOGY AND GENOMIC MEDICINE Protein 5.7 (L) 6.3 - 8.3 g/dL [facility] DEPARTMENT OF Comment: PATHOLOGY AND GENOMIC [place] 4.6-7.0 g/dL MEDICINE 1 week 4.4-7.6 g/dL 7 months-1year5.1-7.3 g/dL 1-2 years5.6-7.5 g/dL >3 years6.0-8.0 g/dL 18-150 6.3-8.3 g/dL ALT 20 5 - 50 U/L [facility] DEPARTMENT OF PATHOLOGY AND GENOMIC MEDICINE AST 16 10 - 35 U/L [facility] DEPARTMENT OF PATHOLOGY AND GENOMIC MEDICINE Specimen Plasma specimen Performing Organization Address City/[facility] Phone Number [facility] DEPARTMENT OF PATHOLOGY AND [address] [place] [address] [facility] [place] > I Hour (11/08/2017 11:43 [...] SEC DOSAGE: 16.88 mGy Performing Organization Address [facility]osd Phone Number [facility] [address] [place] [address] [place] < 1 Hour (11/08/2017 11:40 [...] 16.88 mGy TECH: GXA Performing Organization Address [facility] Phone Number [facility] [address] [place] [address] Fungus smear (11/08/2017 11:25 AM CDT) Fungus smear No fungi observed. [facility] DEPARTMENT OF PATHOLOGY AND Comment: GENOMIC MEDICINE Specimen Information Specimen Source: Incision Specimen Site: Wrist, left Specimen Incision - Wrist, left Performing Organization Address [facility] Phone Number [facility] DEPARTMENT OF PATHOLOGY AND [address] [place] [address] GENOMIC MEDICINE AF[employer] culture (11/08/2017 11:25 AM CDT)Only the most recent of2 resultswithin the time period is included. AFB culture isolate No growth after 6 weeks of incubation. [facility] DEPARTMENT OF PATHOLOGY Comment: AND GENOMIC MEDICINE Specimen Information Specimen Source: Incision Specimen Site: Wrist, left Specimen Incision - Wrist, left Performing Organization Address [facility]ode Phone Number [facility] DEPARTMENT OF PATHOLOGY AND [address] [place] [address] GENOMIC MEDICINE Aerobic culture (11/08/2017 11:25 AM CDT)Only the most recent of2 resultswithin the time period is included. Aerobic culture isolate No growth after 3 days. [facility] DEPARTMENT OF Comment: PATHOLOGY AND GENOMIC Specimen Information MEDICINE Specimen Source: Incision Specimen Site: Wrist, left Specimen Incision - Wrist, left Performing Organization Address [facility]ode Phone Number [facility] DEPARTMENT OF PATHOLOGY AND [address] [place] [address] GENOMIC MEDICINE AFB stain (11/08/2017 11:25 AM CDT)Only the most recent of2 resultswithin the time period is included. AFB stain No acid fast bacilli (AFB) seen. [facility] DEPARTMENT OF PATHOLOGY AND Comment: GENOMIC MEDICINE Specimen Information Specimen Source: Incision Specimen Site: Wrist, left Specimen Incision - Wrist, left Performing Organization Address [facility] Phone Number [facility] DEPARTMENT OF PATHOLOGY AND [address] [place] [address] MEDICINE Fungus culture (11/08/2017 11:25 AM CDT) Fungus culture isolate No growth after 4 weeks of incubation. [facility] DEPARTMENT OF Comment: PATHOLOGY AND GENOMIC Specimen Information MEDICINE Specimen Source: Incision Specimen Site: Wrist, left Specimen Incision - Wrist, left Performing Organization Address [facility] Phone Number [facility] DEPARTMENT OF PATHOLOGY AND [address] [place] [address] MEDICINE Anaerobic culture (11/08/2017 11:25 AM CDT)Only the most recent of2 resultswithin the time period is included. Anaerobic culture No anaerobic organisms isolated. [facility] DEPARTMENT OF isolate Comment: PATHOLOGY AND GENOMIC Specimen Information MEDICINE Specimen Source: Incision Specimen Site: Wrist, left Specimen Incision - Wrist, left Performing Organization Address [facility] Phone Number [facility] DEPARTMENT OF PATHOLOGY AND [address] [place] [address] GENOMIC MEDICINE Sodium level, syringe (11/08/2017 10:45 AM CDT)Only the most recent of2 resultswithin the time period is included. Sodium, syringe 142 135 - 148 mEq/L [facility] DEPARTMENT OF PATHOLOGY AND GENOMIC MEDICINE Specimen Blood Performing Organization Address [facility] Phone Number [facility] DEPARTMENT OF PATHOLOGY AND [address] [place] [address] GENOMIC MEDICINE Potassium, syringe (11/08/2017 10:45 AM CDT)Only the most recent of2 resultswithin the time period is included. Potassium, syringe 5.1 (H) 3.5 - 5.0 mEq/L [facility] DEPARTMENT OF PATHOLOGY AND GENOMIC MEDICINE Specimen Blood Performing Organization Address City/[facility] Phone Number [facility] DEPARTMENT OF PATHOLOGY AND [address] [place] [address] Hemoglobin, syringe (11/08/2017 10:45 AM CDT)Only the most recent of2 resultswithin the time period is included. Hemoglobin, syringe 8.7 (L) 12.0 - 16.0 g/dL [facility] DEPARTMENT OF PATHOLOGY AND GENOMIC MEDICINE Specimen Blood Performing Organization Address City/[facility] Phone Number [facility] DEPARTMENT OF PATHOLOGY AND [address] [place] [address] Glucose level, syringe (11/08/2017 10:45 AM CDT)Only the most recent of2 resultswithin the time period is included. Glucose, syringe 143 (H) 65 - 99 mg/dL [facility] DEPARTMENT OF PATHOLOGY AND GENOMIC MEDICINE Specimen Blood Performing Organization Address [facility] Phone Number [facility] DEPARTMENT OF PATHOLOGY AND [address] [place] [address] Arterial blood gas, corrected (11/08/2017 10:45 AM CDT)Only the most recent of2 resultswithin the time period is included. pH, arterial 7.37 7.35 - 7.45 [facility] DEPARTMENT OF PATHOLOGY AND GENOMIC MEDICINE pCO2, arterial 40 35 - 45 mmHg [facility] DEPARTMENT OF PATHOLOGY AND GENOMIC MEDICINE pO2, arterial 99 (H) 80 - 90 mmHg [facility] DEPARTMENT OF PATHOLOGY AND GENOMIC MEDICINE Temperature, Celsius 36.5 Degrees C [facility] DEPARTMENT OF PATHOLOGY AND GENOMIC MEDICINE O2 saturation, arterial 97 95 - 100 % [facility] DEPARTMENT OF PATHOLOGY AND GENOMIC MEDICINE pH, arterial corrected 7.38 [facility] DEPARTMENT OF PATHOLOGY AND GENOMIC MEDICINE pCO2, arterial corrected 39 mmHg [facility] DEPARTMENT OF PATHOLOGY AND GENOMIC MEDICINE pO2, arterial corrected 97 mmHg [facility] DEPARTMENT OF PATHOLOGY AND GENOMIC MEDICINE Base excess, arterial -2 -2 - 2 mEq/L [facility] DEPARTMENT OF PATHOLOGY AND GENOMIC MEDICINE Specimen Blood Performing Organization Address City/[facility] Phone Number [facility] DEPARTMENT OF PATHOLOGY AND [address] [place] [address] MEDICINE POC panel 4 (11/08/2017 7:27 AM CDT) POC sodium 141 135 - 148 mmol/L [facility] DEPARTMENT OF PATHOLOGY AND GENOMIC MEDICINE POC potassium 5.3 (H) 3.5 - 5.0 mmol/L [facility] DEPARTMENT OF PATHOLOGY AND GENOMIC MEDICINE POC hematocrit 29 (L) 37 - 47 % [facility] DEPARTMENT OF PATHOLOGY Comment: AND GENOMIC MEDICINE Meter ID: [id number] [employer] Operator: Denton Adamsn POC glucose 133 (H) 65 - 99 mg/dL [facility] DEPARTMENT OF PATHOLOGY AND GENOMIC MEDICINE Performing Organization Address City/[facility] Phone Number [facility] DEPARTMENT OF PATHOLOGY AND [address] [place] [address] GENOMIC MEDICINE Prepare platelets (11/08/2017 4:30 AM CDT) Product name Apheresis PLT, Leukored IRR [facility] DEPARTMENT OF #2 PATHOLOGY AND GENOMIC MEDICINE Unit number [id number] [facility] DEPARTMENT OF PATHOLOGY AND GENOMIC MEDICINE Product code [id number] [facility] DEPARTMENT OF PATHOLOGY AND GENOMIC MEDICINE Dispense status Transfused [facility] DEPARTMENT OF PATHOLOGY AND GENOMIC MEDICINE Blood expiration date [facility] DEPARTMENT OF PATHOLOGY AND GENOMIC MEDICINE Blood type code 5100 [facility] DEPARTMENT OF PATHOLOGY AND GENOMIC MEDICINE Blood type O POSITIVE [facility] DEPARTMENT OF PATHOLOGY AND GENOMIC MEDICINE Performing Organization Address City/[facility] Phone Number [facility] DEPARTMENT OF PATHOLOGY AND [address] [place] [address] GENOMIC MEDICINE Prepare RBC (11/08/2017 4:30 AM CDT)Only the most recent of3 resultswithin the time period is included. Product name Red Blood Cells -1, [facility] DEPARTMENT OF Leukored PATHOLOGY AND GENOMIC MEDICINE Unit number [id number] [facility] DEPARTMENT OF PATHOLOGY AND GENOMIC MEDICINE Product code [id number] [facility] DEPARTMENT OF PATHOLOGY AND GENOMIC MEDICINE Dispense status Transfused [facility] DEPARTMENT OF PATHOLOGY AND GENOMIC MEDICINE Blood expiration date [facility] DEPARTMENT OF PATHOLOGY AND GENOMIC MEDICINE Blood type code 6200 [facility] DEPARTMENT OF PATHOLOGY AND GENOMIC MEDICINE Blood type A POSITIVE [facility] DEPARTMENT OF PATHOLOGY AND GENOMIC MEDICINE Product name Red Blood Cells -1, [facility] DEPARTMENT OF Leukored PATHOLOGY AND GENOMIC MEDICINE Unit number [id number] [facility] DEPARTMENT OF PATHOLOGY AND GENOMIC MEDICINE Product code [id number] [facility] DEPARTMENT OF PATHOLOGY AND GENOMIC MEDICINE Dispense status Transfused [facility] DEPARTMENT OF PATHOLOGY AND GENOMIC MEDICINE Blood expiration date [id number] [facility] DEPARTMENT OF PATHOLOGY AND GENOMIC MEDICINE Blood type code 6200 [facility] DEPARTMENT OF PATHOLOGY AND GENOMIC MEDICINE Blood type A POSITIVE [facility] DEPARTMENT OF PATHOLOGY AND GENOMIC MEDICINE Performing Organization Address City/[facility] Phone Number [facility] DEPARTMENT OF PATHOLOGY AND [address] [place] [address] GENOMIC MEDICINE Type and screen (11/08/2017 4:30 AM CDT)Only the most recent of2 resultswithin the time period is included. ABO grouping A [facility] DEPARTMENT OF PATHOLOGY AND GENOMIC MEDICINE Rh type POS [facility] DEPARTMENT OF PATHOLOGY AND GENOMIC MEDICINE Antibody screen (gel) NEG [facility] DEPARTMENT OF PATHOLOGY AND GENOMIC MEDICINE Specimen Blood Performing Organization Address City/[facility] Phone Number [facility] DEPARTMENT OF PATHOLOGY AND [address] [place] [address] [facility] MEDICINE Comprehensive metabolic panel (11/08/2017 4:00 AM CDT)Only the most recent of10 resultswithin the time period is included. Sodium 139 135 - 148 mEq/L [facility] DEPARTMENT OF PATHOLOGY AND GENOMIC MEDICINE Potassium 5.5 (H) 3.5 - 5.0 mEq/L [facility] DEPARTMENT OF PATHOLOGY AND GENOMIC MEDICINE Chloride 109 98 - 112 mEq/L [facility] DEPARTMENT OF PATHOLOGY AND GENOMIC MEDICINE CO2 17 (L) 24 - 31 mEq/L [facility] DEPARTMENT OF PATHOLOGY AND GENOMIC MEDICINE Anion gap 13@ANIO 7 - 15 mEq/L [facility] DEPARTMENT OF PATHOLOGY AND GENOMIC MEDICINE BUN 37 (H) 8 - 23 mg/dL [facility] DEPARTMENT OF PATHOLOGY AND GENOMIC MEDICINE Creatinine 1.76 (H) 0.50 - 0.90 mg/dL [facility] DEPARTMENT OF PATHOLOGY AND GENOMIC MEDICINE Glucose 131 (H) 65 - 99 mg/dL [facility] DEPARTMENT OF PATHOLOGY AND GENOMIC MEDICINE Calcium 7.6 (L) 8.8 - 10.2 mg/dL [facility] DEPARTMENT OF PATHOLOGY AND GENOMIC MEDICINE Protein 5.8 (L) 6.3 - 8.3 g/dL [facility] DEPARTMENT OF Comment: PATHOLOGY AND GENOMIC [place] 4.6-7.0 g/dL MEDICINE 1 week 4.4-7.6 g/dL 7 months-1year5.1-7.3 g/dL 1-2 years5.6-7.5 g/dL >3 years6.0-8.0 g/dL 18-150 6.3-8.3 g/dL Albumin 1.9 (L) 3.5 - 5.0 g/dL [facility] DEPARTMENT OF PATHOLOGY AND GENOMIC MEDICINE A/G ratio 0.5 (L) 0.7 - 3.8 [facility] DEPARTMENT OF PATHOLOGY AND GENOMIC MEDICINE Alkaline phosphatase 53 35 - 104 U/L [facility] DEPARTMENT OF PATHOLOGY AND GENOMIC MEDICINE AST 25 10 - 35 U/L [facility] DEPARTMENT OF PATHOLOGY AND GENOMIC MEDICINE ALT 24 5 - 50 U/L [facility] DEPARTMENT OF PATHOLOGY AND GENOMIC MEDICINE Total bilirubin 0.3 0.0 - 1.2 mg/dL [facility] DEPARTMENT OF PATHOLOGY AND GENOMIC MEDICINE Specimen Plasma specimen Performing Organization Address City/[facility] Phone Number [facility] PATHOLOGY AND [address] [place] [address] GENOMIC MEDICINE Manual differential (11/05/2017 4:15 AM CDT)Only the most recent of2 resultswithin the time period is included. Manual differential PERFORMED [facility] DEPARTMENT OF PATHOLOGY AND GENOMIC MEDICINE Neutrophils 74.0 (H) 39.0 - 69.0 % [facility] DEPARTMENT OF PATHOLOGY AND GENOMIC MEDICINE Lymphocytes 19.0 (L) 25.0 - 45.0 % [facility] DEPARTMENT OF PATHOLOGY AND GENOMIC MEDICINE Monocytes 4.0 0.0 - 10.0 % [facility] DEPARTMENT OF PATHOLOGY AND GENOMIC MEDICINE Eosinophils 2.0 0.0 - 5.0 % [facility] DEPARTMENT OF PATHOLOGY AND GENOMIC MEDICINE Basophils 0.0 0.0 - 1.0 % [facility] DEPARTMENT OF PATHOLOGY AND GENOMIC MEDICINE Metamyelocytes 0 % [facility] DEPARTMENT OF PATHOLOGY AND GENOMIC MEDICINE Promyelocytes 0 % [facility] DEPARTMENT OF PATHOLOGY AND GENOMIC MEDICINE Plasma cells 1 % [facility] DEPARTMENT OF PATHOLOGY AND GENOMIC MEDICINE Platelet slide review Dafne adequate [facility] DEPARTMENT OF PATHOLOGY AND GENOMIC MEDICINE Performing Organization Address City/[facility] Phone Number [facility] DEPARTMENT PATHOLOGY AND [address] [place] [address] [employer] [facility] Cv filling station laborer procedure (11/03/2017 11:14 AM CDT) Narrative Performed At SURGEON: MICHELLE Kebede MD. ALPINE PATROLLER: Lucero Dunbar MD. PREOPERATIVE DIAGNOSES: 1.Acute non-ST elevation myocardial infarction. 2.Atherosclerotic vascular disease of the craig coronaries. POSTOPERATIVE DIAGNOSES: 1.Acute non-ST elevation myocardial infarction. 2.Atherosclerotic vascular disease of the craig coronaries. TITLE OF OPERATION: 1.Left heart catheterization, [...] using a standard 18-gauge AMC needle and 4-[place] arterial sheath inserted for access.In sequential fashion, [...] to proceed with PTCA of the vessel.The 4-[place] sheath was upsized with 6-[place].Utilizing a 6-[place] XB LAD 3.5 guide, the left anterior [...] arteriotomy.The vessel was then closed with a 6-[place] Perclose ProGlide system.The patient tolerated the procedure well and was transferred to the PACU for recovery.It is anticipated that her orthopedic surgery will be done next week.She will be hydrated over the weekend and we will watch for worsening of her preexisting renal insufficiency.The total contrast utilized was 50 mL of Visipaque. Performing Organization Address City/State/Zipcode Phone Number [facility] [address] [place] [address] Continuous EEG monitoring (10/31/2017 9:41 AM CDT) [...] with him and agree with the interpretation. Cral Miller MD Estimated GFR (10/31/2017 1:15 AM CDT)Only the most recent of9 resultswithin the time period is included. GFR Non Af Amer 19 (A) mL/min/1.73 m2 [facility] DEPARTMENT OF PATHOLOGY AND GENOMIC MEDICINE GFR Af Amer 23 (A) mL/min/1.73 m2 [facility] DEPARTMENT OF Comment: PATHOLOGY AND GENOMIC [...] specimen Performing Organization Address City/State/Zipcode Phone Number [facility] DEPARTMENT OF PATHOLOGY AND [address] [place] [address] [employer] [facility] Vitamin D 25 hydroxy level (10/31/2017 12:40 AM CDT)Only the most recent of2 resultswithin the time period is included. Vitamin D, 25-hydroxy 25.0 (L) 30.0 - 150.0 [facility] DEPARTMENT OF Comment: ng/mL PATHOLOGY AND [...] alternative methods. Specimen Blood Narrative Performed At [facility] results called to and read back by [facility] DEPARTMENT OF PATHOLOGY AND GENOMIC FABIAN GALLARDO/Bob(name/location) MEDICINE at10/31/201702:03 (date/time) by KISHA. Performing Organization Address City/State/Zipcode Phone Number [facility] DEPARTMENT OF PATHOLOGY AND [address] [place] [address] [facility] CBC hemogram (10/31/2017 12:40 AM CDT) WBC 3.92 (L) 4.50 - 11.00 k/uL [facility] DEPARTMENT OF PATHOLOGY AND GENOMIC MEDICINE RBC 2.76 (L) 4.20 - 5.50 m/uL [facility] DEPARTMENT OF PATHOLOGY AND GENOMIC MEDICINE HGB 8.7 (L) 12.0 - 16.0 g/dL [facility] DEPARTMENT OF PATHOLOGY AND GENOMIC MEDICINE HCT 27.7 (L) 37.0 - 47.0 % [facility] DEPARTMENT OF PATHOLOGY AND GENOMIC MEDICINE MCV 100.4 (H) 82.0 - 100.0 fL [facility] DEPARTMENT OF PATHOLOGY AND GENOMIC MEDICINE MCH 31.5 27.0 - 34.0 pg [facility] DEPARTMENT OF PATHOLOGY AND GENOMIC MEDICINE MCHC 31.4 31.0 - 37.0 g/dL [facility] DEPARTMENT OF PATHOLOGY AND GENOMIC MEDICINE RDW - SD 46.4 37.0 - 55.0 fL [facility] DEPARTMENT OF PATHOLOGY AND GENOMIC MEDICINE MPV 11.4 8.8 - 13.2 fL [facility] DEPARTMENT OF PATHOLOGY AND GENOMIC MEDICINE Platelet count 140 (L) 150 - 400 k/uL [facility] DEPARTMENT OF PATHOLOGY AND GENOMIC MEDICINE Nucleated RBC 0.00 /100 WBC [facility] DEPARTMENT OF PATHOLOGY AND GENOMIC MEDICINE Performing Organization Address City/State/Zipcode Phone Number [facility] DEPARTMENT OF PATHOLOGY AND [address] [place] [address] [facility] Continuous EEG monitoring (10/31/2017 12:19 AM CDT) [...] No growth after 5 days of incubation. [facility] DEPARTMENT OF Comment: PATHOLOGY AND GENOMIC Specimen Information MEDICINE Specimen Source: Blood Specimen Site: Right Antecubital Specimen Blood Performing Organization Address City/State/Zipcode Phone Number [facility] DEPARTMENT OF PATHOLOGY AND [address] [place] [address] Head Wo Contrast (10/29/2017 8:13 [...] No CT evidence of acute intracranial abnormality. [facility]-[id number] Procedure Note Interface, Radiology Results Incoming - [...] No CT evidence of acute intracranial abnormality. [facility]-[id number] Performing Organization Address City/State/Zipcode Phone Number [facility] [address] [place] [address] Echocardiogram complete w contrast and 3D if needed (10/29/2017 4:15 PM CDT) Narrative Performed At [facility] Echocardiography Report [address] [place] [address] Pat.Name:VIRI JEFFERSON Pat.ID:[id number] .Date: 10/29/2017Refer.MD:ROSA LOPEZ MD Exam Time: 2:53:00 PMStudy Type:Routine Echo Height:65inWeight: 176lb BSA: 1.88 m2 DOBAge:1955,62Y Sex: FEMALEBP:114/58 HR:90 bpmSonogrphr: Kavya Merritt RDCS Pat. Stat.:Inpatient Room:A938-A Study Status:Final Echo Event ID:[id number] Order ID:[id number] Reason for Study:Abnormal Heart Sound; Myocardial Ischemia/ Infarction - Eval of a patient without chest pain but with other features of an ischemic equivalent or laboratory markers indicative of ongoing [place]; Preop History / Clinical:Diabetes, Hypertension, [place], Rheumatoid Arthritis Procedures:2D Echo, Colorflow Doppler, Portable, [...] PA systolic pressure. MEASUREMENTS: 2D [place] Ao An1.8 cmLV%fs 23.8 % Ao Rtd 2.3 cmIndex1.2 cm/m IVSd 0.8 cm LVOT 1.8 cmLVPWd0.8 cm LA Ds4.3 cmLV Task908.5 g(87-129) LVIDd5.5 cmIndex2.9 cm/m LVM Index 84.3 g/m2 LVIDs4.2 cmRWT0.3 LV EF SinglePlane LV Ad 42.2 cm2(9.5-22.3) LVESV 66.2 ml Index35.2 ml/m HXYKF905.7 ml (59-136) Index88.7 ml/m LV SV100.5 ml [...] 10/29/2017 7:01 PM CDT Echocardiography Report [address] [place] [address] Pat.Name: VIRI JEFFERSON Pat.ID: [id number] .Date: 10/29/2017 Refer.MD: ROSA LOPEZ MD Exam Time: 2:53:00 PM Study Type:Routine Echo Height: 65in Weight: 176lb BSA: 1.88 m2 Age: 7 1955,62Y Sex: FEMALE BP: 114/58 HR: 90 bpm Sonogrphr: Kavya Merritt RDCS Pat. Stat.:Inpatient Room: [facility] Study Status:Final Echo Event ID:[id number] Order ID: [id number] Reason for Study:Abnormal Heart Sound; Myocardial Ischemia/ Infarction - Eval of a patient without chest pain but with other features of an ischemic equivalent or laboratory markers indicative of ongoing [place]; Preop History / Clinical:Diabetes, Hypertension, [place], Rheumatoid Arthritis Procedures:2D Echo, Colorflow Doppler, Portable, [...] PA systolic pressure. MEASUREMENTS: 2D [place]ternal [place] Ao An 1.8 cm LV%fs 23.8 % [...] PM Rober Morocho M.D. Performing Organization Address [facility] Phone Number [facility] [address] [place] [address] B natriuretic peptide (10/29/2017 1:15 PM CDT)Only the most recent of3 resultswithin the time period is included. BNP 468 (H) 0 - 100 pg/mL [facility] DEPARTMENT OF PATHOLOGY AND GENOMIC MEDICINE Specimen Blood Performing Organization Address [facility] Cent[facility] Phone Number [facility] DEPARTMENT OF PATHOLOGY AND [address] [place] [address] [facility] MEDICINE Creatine kinase, total (CPK) (10/29/2017 12:52 PM CDT) Creatine kinase 376 (H) 26 - 192 U/L [facility] DEPARTMENT OF PATHOLOGY AND [employer] MEDICINE Specimen Plasma specimen Performing Organization Address [facility]/State/[facility] Phone Number [facility] DEPARTMENT OF PATHOLOGY AND [address] [place] [address] GENOMIC MEDICINE Sedimentation rate (10/29/2017 8:57 AM CDT)Only the most recent of2 resultswithin the time period is included. Sedimentation rate 87 (H) 0 - 20 mm/hr [facility] DEPARTMENT OF PATHOLOGY AND GENOMIC MEDICINE Specimen Blood Performing Organization Address [facility] Phone Number [facility] DEPARTMENT OF PATHOLOGY AND [address] [place] [address] MEDICINE Anti-neutrophilic cytoplasmic Abs panel (10/29/2017 8:56 AM CDT) ANCA screen Negative Negative [facility] DEPARTMENT OF PATHOLOGY AND GENOMIC MEDICINE Specimen Blood Performing Organization Address [facility] Cent[facility]ode Phone Number [facility] DEPARTMENT OF PATHOLOGY AND [address] [place] [address] Serum electrophoresis (10/29/2017 8:56 AM CDT) Protein 6.5 6.3 - 8.3 g/dL [facility] DEPARTMENT OF Comment: PATHOLOGY AND [place] 4.6-7.0 g/dL GENOMIC MEDICINE 1 week 4.4-7.6 g/dL 7 months-1year5.1-7.3 g/dL 1-2 years5.6-7.5 g/dL >3 years6.0-8.0 g/dL 18-150 6.3-8.3 g/dL SPE albumin 3.65 (L) 4.00 - 5.30 [facility] DEPARTMENT OF g/dL PATHOLOGY AND GENOMIC MEDICINE SPE alpha 1 0.29 (H) 0.10 - 0.25 [facility] DEPARTMENT OF g/dL PATHOLOGY AND GENOMIC MEDICINE SPE alpha 2 0.96 (H) 0.58 - 0.84 [facility] DEPARTMENT OF g/dL PATHOLOGY AND GENOMIC MEDICINE SPE beta 0.85 0.50 - 1.10 [facility] DEPARTMENT OF g/dL PATHOLOGY AND GENOMIC MEDICINE SPE gamma 0.76 0.60 - 1.30 [facility] DEPARTMENT OF g/dL PATHOLOGY AND GENOMIC MEDICINE SPE extended See Comment [facility] DEPARTMENT OF interpretation Comment: PATHOLOGY AND Albumin is decreased while the concentrations of alpha-1 globulins and GENOMIC MEDICINE alpha-2 globulins are increased indicating an acute phase response to infection, inflammation or tissue injury. SPE interpretation See CommentComment: [facility] DEPARTMENT OF Galina Mahoney MD; Bigg Singh PATHOLOGY AND Seb, PhD; Dee Toonimo MEDICINE MD Lukasz Specimen Serum Performing Organization Address City/[facility]/Zipcode Phone Number [facility] DEPARTMENT OF PATHOLOGY AND [address] [place] [address] [facility] Thyroid stimulating hormone (10/29/2017 4:00 AM CDT)Only the most recent of2 resultswithin the time period is included. TSH 1.59 0.27 - 4.20 uIU/mL [facility] DEPARTMENT OF PATHOLOGY AND [facility] Specimen Plasma specimen Performing Organization Address City/[facility]/Zipcode Phone Number [facility] DEPARTMENT OF PATHOLOGY AND [address] [place] [phone] [facility] US Renal (10/28/2017 6:15 PM CDT) Narrative Performed At EXAMINATION:US RENAL [facility] CLINICAL HISTORY:Renal failureacute (kidney injury) COMPARISON:US [...] calculus. No right renal calculus. No hydronephrosis. [facility]-[id number] Procedure Note [facility], Radiology Results Incoming - 10/28/2017 7:22 PM [...] calculus. No right renal calculus. No hydronephrosis. [facility]-[id number] Performing Organization Address City/State/Zipcode Phone Number YISEL [address] [place] [address] CT Lower Extremity Wo Contrast Left (10/28/2017 4:51 PM CDT) Narrative Performed At EXAMINATION:CT LOWER EXTREMITY WO CONTRAST LEFT [facility] CLINICAL HISTORY:Fracturefemur COMPARISON:Radiographs left femur dated [...] intact left femoral diametaphyseal internal fixation hardware. [facility]-[id number] Procedure Note Interface, Radiology Results Incoming - [...] intact left femoral diametaphyseal internal fixation hardware. [facility]-[id number] Performing Organization Address [facility]ode Phone Number [facility] [address] [place] [address] XR Chest 1 Vw (10/28/2017 3:48 PM CDT) Narrative Performed At EXAMINATION:XR CHEST 1 VW RADIANT CLINICAL HISTORY:Rib fx suspectedpost trauma COMPARISON:. IMPRESSION: There is cardiomegaly mediastinal widening.Pulmonary vasculature is mildly congested bilaterally with no significant infiltrate.There some patchy atelectasis at the left lung base.Spotty demineralization in the bones of the left humerus are noted. Multiple right ribs are identified with callus formation. [facility]-[id number] Procedure Note Interface, Radiology Results Incoming - [...] right ribs are identified with callus formation. [facility]-[id number] Performing Organization Address [facility] Cent[facility]osd Phone Number [facility] [address] [place] [address] XR Ribs 2 Vw Left (10/28/2017 3:47 [...] humerus. 4.Left lower lobe atelectasis. No pneumothorax. [facility]-[id number] Procedure Note [facility], Radiology Results Incoming - 10/28/2017 3:55 PM [...] 4. Left lower lobe atelectasis. No pneumothorax. [facility]-[id number] Performing Organization Address [facility]osd Phone Number [facility] [address] [place] [address] Urine protein electrophoresis, random (10/28/2017 12:16 PM CDT) Urine protein concentration 420 mg/dL [facility] DEPARTMENT OF PATHOLOGY AND GENOMIC MEDICINE UPE albumin 75.9 % [facility] DEPARTMENT OF PATHOLOGY AND GENOMIC MEDICINE UPE globulin 24.1 % [facility] DEPARTMENT OF PATHOLOGY AND GENOMIC MEDICINE UPE extended interpretation See Comment [facility] DEPARTMENT OF Comment: PATHOLOGY AND GENOMIC An abnormal random urine protein study with proteinuria equivalent to 4.2 MEDICINE g/L, which is in the nephrotic syndrome range. The proteinuria is in a glomerular pattern. UPE interpretation See CommentComment: [facility] DEPARTMENT OF Galina Mahoney MD; Bigg PATHOLOGY AND GENOMIC Seb, PhD; Dee Lal MD Specimen Urine Performing Organization Address [facility]ercosd Phone Number [facility] DEPARTMENT OF PATHOLOGY AND [address] [place] [address] [facility] [place] lambda free light chain with ratio (10/28/2017 12:16 PM CDT) [place] light chain 105.54 (H) 3.30 - 19.40 mg/L [facility] DEPARTMENT OF PATHOLOGY AND GENOMIC MEDICINE Lambda light chain 41.87 (H) 5.70 - 26.30 mg/L [facility] DEPARTMENT OF PATHOLOGY AND GENOMIC MEDICINE [place] lambda ratio 2.52 (H) 0.26 - 1.65 [facility] DEPARTMENT OF PATHOLOGY AND GENOMIC MEDICINE Specimen Plasma specimen Performing Organization Address [facility] Phone Number [facility] DEPARTMENT OF PATHOLOGY AND [address] [place] [address] C3 complement component (10/28/2017 12:16 PM CDT) C3 complement 131 90 - 180 mg/dL [facility] DEPARTMENT OF PATHOLOGY AND [facility] Specimen Plasma specimen Performing Organization Address [facility] Phone Number [facility] DEPARTMENT OF PATHOLOGY AND [address] [place] [address] C4 complement component (10/28/2017 12:16 PM CDT) C4 complement 21 10 - 40 mg/dL [facility] DEPARTMENT OF PATHOLOGY AND [facility] Specimen Plasma specimen Performing Organization Address [facility] Phone Number [facility] DEPARTMENT OF PATHOLOGY AND [address] [place] [address] Hemoglobin A1c (10/28/2017 4:15 AM CDT)Only the most recent of2 resultswithin the time period is included. Hemoglobin A1C 7.9 (H) 4.0 - 5.6 % [facility] DEPARTMENT OF PATHOLOGY Comment: AND [facility] HbA1c cutoffs for diagnosing diabetes: 4.0% - 5.6%=normal 5.7% - 6.4%=increased risk for diabetes (prediabetes) >=6.5%=diabetes Goals for glycemic control (ADA 2016) < 7.0%Target for non adults with diabetes. More or less stringent targets may be appropriate for individual patients. <7.5% Target for Children and adolescents with type 1 diabetes. Specimen Blood Performing Organization Address [facility] Phone Number [facility] DEPARTMENT OF PATHOLOGY AND [address] [place] [address] Transfuse platelets (10/25/2017 5:26 PM CDT)Only the most recent of3 resultswithin the time period is included.Transfuse RBC (10/25/2017 5:26 PM CDT )Only the most recent of3 resultswithin the time period is included.General sleep study (09/05/2017 6:21 AM CDT) Narrative Performed At General sleep study (08/01/2017 7:17 AM CDT) Narrative Performed At Vitamin D 1,25 dihydroxy level, serum (02/23/2017 3:40 PM FLYER MAKER) Vit D, 1,25-Dihydroxy 28.50 18.00 - 78.00 [facility] DEPARTMENT OF Comment: pg/mL PATHOLOGY AND GENOMIC This test was developed and its performance characteristics determined by MEDICINE the Department of Pathology and Genomic Medicine, [facility]. Serum 1,25 Dihydroxy Vitamin D is tested by LC-MS/MS. It has not been cleared or approved by FDA. The laboratory is regulated under CLIA as qualified to perform high-complexity testing. This test is used for clinical purposes. It should not be regarded as investigational or for research. Specimen Blood Narrative Performed At [facility] results called to and read back by [facility] DEPARTMENT OF PATHOLOGY AND GENOMIC NATHAN (name/location) MEDICINE at02/23/201717:34 (date/time) by [employer]. Unable to perform testing, specimen is HEMOLYZED.Recollect requested for K, AST (tests).FAXED TO [facility] ([phone]) (name/location) notified by [employer] (tech ID) at 02/23/201717:35 (date/time).Credit issued. Christina Kerr in office notified of a sample recollect for K,AST hemolyzed for testing 02/24/2017 10:47 LMID. Performing Organization Address City/State/Zipcode Phone Number [facility] DEPARTMENT OF PATHOLOGY AND [address] [place] [address] [employer] MEDICINE Urinalysis, automated with microscopy (02/23/2017 3:40 PM [employer]ER [employer]KER) Color, UA Straw [facility] DEPARTMENT OF PATHOLOGY AND GENOMIC MEDICINE Appearance, UA Clear [facility] DEPARTMENT OF PATHOLOGY AND GENOMIC MEDICINE Specific gravity, UA 1.028 1.001 - 1.035 [facility] DEPARTMENT OF PATHOLOGY AND GENOMIC MEDICINE pH, UA 6.0 5.0 - 8.5 [facility] DEPARTMENT OF PATHOLOGY AND GENOMIC MEDICINE Protein, UA 3+ (A) Negative [facility] DEPARTMENT OF PATHOLOGY AND GENOMIC MEDICINE Glucose, UA 3+ (A) Negative [facility] DEPARTMENT OF PATHOLOGY AND GENOMIC MEDICINE Ketones, UA Negative Negative [facility] DEPARTMENT OF PATHOLOGY AND GENOMIC MEDICINE Bilirubin, UA Negative Negative [facility] DEPARTMENT OF PATHOLOGY AND GENOMIC MEDICINE Blood, UA Small (A) Negative [facility] DEPARTMENT OF PATHOLOGY AND GENOMIC MEDICINE Nitrite, UA Negative Negative [facility] DEPARTMENT OF PATHOLOGY AND GENOMIC MEDICINE Urobilinogen, UA <2.0 <2.0 [facility] DEPARTMENT OF PATHOLOGY AND GENOMIC MEDICINE Leukocyte esterase, UA Negative Negative [facility] DEPARTMENT OF PATHOLOGY AND GENOMIC MEDICINE Epithelial cells, UA 2 /HPF [facility] DEPARTMENT OF PATHOLOGY AND GENOMIC MEDICINE WBC, UA 4 0 - 4 /HPF [facility] DEPARTMENT OF PATHOLOGY AND GENOMIC MEDICINE RBC, UA 2 0 - 2 /HPF [facility] DEPARTMENT OF PATHOLOGY AND GENOMIC MEDICINE Bacteria, UA Few None seen [facility] DEPARTMENT OF PATHOLOGY AND GENOMIC MEDICINE Yeast, UA None seen [facility] DEPARTMENT OF PATHOLOGY AND GENOMIC MEDICINE Yeast with pseudohyphae, UA None seen [facility] DEPARTMENT OF PATHOLOGY AND GENOMIC MEDICINE Specimen Urine Performing Organization Address City/State/Zipcode Phone Number [facility] DEPARTMENT OF PATHOLOGY AND [address] [place] [phone] GENOMIC MEDICINE C-reactive protein (02/23/2017 3:40 PM FLYER MAKER) CRP <0.30 0.00 - 0.50 mg/dL [facility] DEPARTMENT OF PATHOLOGY AND GENOMIC MEDICINE Specimen Plasma specimen Performing Organization Address City/State/[facility]ode Phone Number [facility] DEPARTMENT OF PATHOLOGY AND [address] [place] [address] GENOMIC MEDICINE after 02/18/2017 Insurance Payer Benefit Plan / Group Subscriber ID Type Phone Address MEDICARE MEDICARE PART A AND B xxxxxxxxxx Medicare [place], [place] MEDICAID MEDICAID xxxxxxxxx Medicaid Advance Directives Patient has advance care planning documents, and code status on file. For more information, please contact:Cesar Harris[address] [place] [id number] Code Status Date Activated Date Inactivated Comments [...]
[2018-02-19 15:18] VITALS: BMI 32.5
[2018-02-19] MEDS: INSULIN -REGULAR HUMAN 50 UNIT/0.5 ML ML SQ SCH ×2 (17:01→21:00)
[2018-02-19] MEDS: HYDROCODONE/APAP 5/325 MG TAB PO PRN (17:29)
[2018-02-19] MEDS: ATORVASTATIN 20 MG TAB PO SCH (19:47)
[2018-02-19] MEDS: MEMANTINE HCL 10 MG TABLET PO SCH (19:47)
[2018-02-19] MEDS: MELATONIN 3 MG TABLET PO PRN (19:47)
[2018-02-19] MEDS: DOCUSATE NA/SENNA CONC 1 TAB PO SCH (19:47)
--- NOTE | 2018-02-20 01:06 | FAST ---
SHIFT START DATE/TIME: 02/19/2018 19:00 (UTILITY ENGINEER) SHIFT END DATE/TIME: 02/20/2018 07:00 (UTILITY ENGINEER) NAME JULEE KENNEY DATE OF : 1955 DATE OF ADMISSION: 02/19/2018 15:02 (UTILITY ENGINEER) PHONE: AGE: 62 SSN# [id number] GENDER: Female ENCOUNTER PHYSICIAN: Dr. Mitul Collins M.D. ADMISSION DIAGNOSIS: - Orthopaedic Disorders 08 - Pelvic Fracture (08.3) Left Sacral Ala Insufficiency Fracture. EATING: Activity did not occur on this shift EATING - SCORE: 0-UNK GROOMING: Activity did not occur on this shift GROOMING - SCORE: 0-UNK BATHING: Activity did not occur on this shift BATHING - SCORE: 0-UNK DRESSING - UPPER BODY: Patient is not dressing in public clothing ARTICLES SCORE Total number of steps: 0 DRESSING - UPPER BODY - SCORE: 0-UNK DRESSING - LOWER BODY: Patient is not dressing in public clothing ARTICLES SCORE Total number of steps: 0 DRESSING - LOWER BODY - SCORE: 0-UNK TOILETING: TOILETING - STEP 1: Does the patient require the assistance of a person or device, or need extra time with toileting? Yes . TOILETING - STEP 2: Does the patient require the assistance of a helper? Yes. TOILETING - STEP 3: How much assistance does the patient require from the helper? Only supervision TOILETING - SCORE: 5-SUP BLADDER MANAGEMENT: BLADDER MANAGEMENT - STEP 1: Does the patient control the bladder completely and intentionally without equipment or devices or med ications, and is always continent? Yes. BLADDER MANAGEMENT - SCORE: 7-IND BOWEL MANAGEMENT: Activity did not occur on this shift BOWEL MANAGEMENT - SCORE: 7-IND TRANSFERS: BED, CHAIR, WHEELCHAIR: TRANSFERS: BED, CHAIR, WHEELCHAIR - STEP 1: Does the patient require assistance of a person or device, or need extra time with bed, chair, or whe elchair transfers? Yes. TRANSFERS: BED, CHAIR, WHEELCHAIR - STEP 2: Does the patient require the assistance of a helper? Yes. TRANSFERS: BED, CHAIR, WHEELCHAIR - STEP 3: How much assistance does the patient require from the helper? Steadying/guiding assistance TRANSFERS: BED, CHAIR, WHEELCHAIR - SCORE: 4-MIN TRANSFERS: TOILET: TRANSFERS: TOILET - STEP 1: Does the patient require the assistance of a person or device, or need extra time with toilet transfe rs? Yes. TRANSFERS: TOILET - STEP 2: Does the patient require the assistance of a helper? Yes. TRANSFERS: TOILET - STEP 3: How much assistance does the patient require from the helper? Only supervision, cuing, coaxing, OR he lp to set out transfer equipment or to lock brakes and/or lift foot rests TRANSFERS: TOILET - SCORE: 5-SUP TRANSFERS: SHOWER: Activity did not occur on this shift TRANSFERS: SHOWER - SCORE: 0-UNK TRANSFERS: TUB: Activity did not occur on this shift TRANSFERS: TUB - SCORE: 0-UNK LOCOMOTION: WALK: Activity did not occur on this shift LOCOMOTION: WALK - SCORE: 0-UNK LOCOMOTION: WHEELCHAIR: Activity did not occur on this shift LOCOMOTION: WHEELCHAIR - SCORE: 0-UNK COMPREHENSION: COMPREHENSION: TYPE: Both COMPREHENSION - STEP 1: Does the patient require help from a person or device, or need extra time to understand complex and a bstract ideas (such as current events, finances, discharge planning, medical issues, relationships, e tc)? No. COMPREHENSION - STEP 2: Does the patient need extra time, require an assistive device (such as glasses for visual comprehensi on or a hearing aid for auditory comprehension) or does s/he have mild difficulty understanding compl ex and abstract information? Yes. COMPREHENSION - SCORE: 6-CYNDIE EXPRESSION EXPRESSION: TYPE: Both EXPRESSION - STEP 1: Does the patient require help from a person or device, or need extra time expressing complex and abst ract ideas (such as current events, finances, discharge planning, medical issues, relationships, etc) ? No. EXPRESSION - STEP 2: Does the patient need extra time, require an assistive device (such as augmentive communication syste m or a communication board), OR does s/he have mild difficulty expressing complex and abstract ideas (including mild dysarthria or mild word-find problems)? Yes. EXPRESSION - SCORE: 6-CYNDIE SOCIAL INTERACTION: SOCIAL INTERACTION - STEP 1: Does the patient require a helper to interact with others in social and therapeutic situations? No. SOCIAL INTERACTION - STEP 2: Does the patient need extra time in social situations, OR does s/he interact with staff, other patien ts, and family members ONLY in structured environments, OR does s/he require medication for social in teraction? Yes, patient needs extra time SOCIAL INTERACTION - SCORE: 6-CYNDIE PROBLEM SOLVING: PROBLEM SOLVING - STEP 1: Does the patient need help from a person or device, or need extra time to solve complex problems such as managing a checking account or confronting interpersonal problems? No. PROBLEM SOLVING - STEP 2: Does the patient require extra time to make decisions or solve problems, OR does s/he have slight dif ficulty reading, initiating, or self-correcting in unfamiliar situations? Yes, patient needs extra ti me. PROBLEM SOLVING - SCORE: 6-CYNDIE MEMORY: MEMORY - STEP 1: Does the patient need help from a person or device, or need extra time to remember frequently encount ered people, daily routines, and executing requests? No. MEMORY - STEP 2: Does the patient have slight difficulty recognizing frequently encountered people, daily routines, or executing requests without the need for repetition or using self-initiated or environmental cues to remember? Yes. MEMORY - SCORE: 6-CYNDIE SIGNATURE PANEL: The following modified sections: Eating - Score, Grooming - Score, Dressing - Upper Body - Score, Arash ssing - Lower Body - Score, Toileting - Score, Bladder Management - Score, Bowel Management - Score, Transfers: Bed, Chair, Wheelchair - Score, Transfers: Toilet - Score, Transfers: Shower - Score, [place] sfers: Tub - Score, Locomotion: Walk - Score, Locomotion: Wheelchair - Score, Comprehension - Score, Expression - Score, Social Interaction - Score, Problem Solving - Score, Memory - Score were [electro nically] signed by Nila Kennedy CNA on MonFeb 20 2018 00:58:30 GMT-0600 (Central Standard Time)
[2018-02-20 01:27] LABS: Urine Appearance CLEAR; Urine Bilirubin NEGATIVE (NEG); Urine Blood TRACE (NEG); Urine Color YELLOW; Urine Glucose 1+ (NEG); Urine Protein 2+ (NEG); Urine Urobilinogen 0.2 mg/dL (0.2-1.0)
[2018-02-20 01:33] LABS: Urine Bacteria <20 /HPF (<20); Urine Culture Reflex Order NOT NEEDED; Urine RBC <5 /HPF (NONE SEEN)
[2018-02-20] MEDS: METOPROLOL TAR 25 MG TAB PO SCH (05:22)
[2018-02-20 06:42] LABS: Absolute Lymphocytes (CBC) 0.7 K/uL (0.7-4.9); Absolute Monocytes 0.4 K/uL (0.1-1.3); Absolute Neutrophil 1.5 K/uL (1.8-8.0); Basophils % 1.1 % (0-1.3); Eosinophils % 4.1 % (0-4.4); Hematocrit 28.1 % (36.0-45.0); Lymphocytes % 26.9 % (15.3-44.8); MPV 8.3 fL (7.6-11.3); Monocytes % 13.8 % (3.3-12.3); RBC Red Blood Cell Count 2.99 M/uL (3.86-4.86)
[2018-02-20 07:04] LABS: Albumin 2.4 g/dL (3.4-5.0); Magnesium 1.9 mg/dL (1.8-2.4); Potassium 3.1 mmol/L (3.5-5.1)
[2018-02-20] MEDS: INSULIN -REGULAR HUMAN 50 UNIT/0.5 ML ML SQ SCH ×4 (07:30→20:27)
[2018-02-20] MEDS ORDERED: ENOXAPARIN 40 MG/0.4 ML SQ SCH (08:00)
[2018-02-20 08:18] LABS: Blood Morphology Comment NOT SEEN (NOT SEEN); Platelet Estimate ADEQ; Urine White Blood Cell Casts OK
--- NOTE | 2018-02-20 08:26 | R.HP ---
FACILITY: [facility] ENCOUNTER DATE AND TIME: 02/20/2018 08:22 (AUDIOPROSTHOLOGIST) MR#: [id number] NAME JULEE KENNEY ADDRESS: [address] [place] [address] [address] BANDAR Armendariz CITY: [place]IP [address] PHONE: DATE OF : 1955 AGE: 62 SSN# [id number] GENDER: Female DEXTERITY Right-handed MARITAL STATUS RACE White PRE-HOSPITAL LIVING SETTING 01 - Home (private home/apt. board/care, assisted living, correction, transitional living) PRE-HOSPITAL LIVING WITH Family/Relatives ENCOUNTER PHYSICIAN: Dr. Nas Lunsford REFERRING DOCTOR: nica Craig DATE OF ADMISSION: 02/19/2018 15:02 (AUDIOPROSTHOLOGIST) REFERRING FACILITY [facility] HOME TYPE AND DETAILS: Type of home: apartment # of levels in the residence: 1 # of steps within the residence: 0 # of steps to enter the residence: 0 ADMISSION DIAGNOSIS: Left Sacral Ala Insufficiency Fracture ONSET DATE: 02/14/2018 PRIMARY DIAGNOSIS-RELATED SURGERIES: N/A SECONDARY/COMORBID DIAGNOSES (TIERED): - Non-Tiered Type 2 diabetes mellitus with diabetic neuropathy, unspecified (E11.40) - N/A Acute Kidney Injury superimposed on CKD Hyperkalemia Hypertension Anxiety Depression CAD HISTORY OF PRESENT ILLNESS (HPI): Pt. is a 62 yo Right-handed white female. On 02/14/2018 she was admitted to [facility] with diagnosis Left Sacral Ala Ins ufficiency Fracture. Her impairment category is Orthopaedic Disorders 08 - Pelvic Fracture (08.3). Pre-morbidly, Pt. was independent/mod-I in Transfers Control, Communication, Social Cognition, Self-C are, Locomotion, and Sphincter Control; and she had good Sphincter Control. Currently, she has deficits of Safety Awareness, Transfers Control, Balance, Locomotion, Endurance, a nd Self-Care. Pt. is now referred to [facility] for acute in-patient rehabilitation in order to maximize patient's functional independence in activities of daily living, strength, ROM, and mobi lity. Patient has realistic goal of being discharged at assistance level 6-Bushra to reside at Home with Fam roxana/Relatives. MEDICATION ALLERGIES: PENICILLIN ENVIRONMENTAL ALLERGIES: None Known - Substance Allergies None Known - Other Allergies None Known PAST MEDICAL HISTORY: Acute Kidney Injury superimposed on CKD Anxiety CAD Depression Hyperkalemia Hypertension Type 2 diabetes mellitus with diabetic neuropathy, unspecified (E11.40) PAST SURGICAL HISTORY: Stents LLE Surgery Kidney stones Left foot surgery Left wrist surgery FAMILY HISTORY: Family history is not contributory. SOCIAL HISTORY: - Home Living Family/Relatives REVIEW OF SYSTEMS: - Gen No Chills No Fatigue No Fever - Eyes No Double Vision No itchiness - ENMT No Difficulty Swallowing - CVS No Chest Discomfort No Chest Pain No Fatigue No Weight Gain - Resp No Cough No Shortness of Breath - GI Continent No Abdominal Pain No Constipation No Diarrhea - Continent No Kidney Pain No Painful Urination No Urinary Urgency - MSK Joint Pain - Skin No Itching No Rash No Suspicious Lesions - Neuro No Coordination Difficulty No Difficulty with Concentration No Memory Loss No Seizures Weakness - Psych No Anxiety No Depression No HIV Exposure No Persistent Infections No Seasonal Allergies - Endo No Cold/Heat Intolerance No Excessive Hunger No Excessive Thirst No Excessive Urination PHYSICAL EXAM - Gen Alert and awake Lying in bed No apparent distress Oriented to: person, time, and place - CVS RRR VITAL SIGNS Temperature: 96.5 F SBP/DBP: 179/79 Pulse: 57 Resp: 20 NURSING: - Shower allowing shower - Lab Results blood Sugar Check ACHS - Skin care per protocol ACTIVITIES OOB only with supervision FUNCTIONAL STATUS: - Self-Care A. Eating Ind Bushra B. Grooming Ind Ind C. Bathing Ind sup D. Dressing - Upper Ind sup E. Dressing - Lower Ind sup F. Toileting Ind Sherry - Sphincter Control G: Bladder control Ind Ind H: Bowel control Ind Ind - Transfers Control I. Bed/Chair/Wheelchair Ind Sherry J. Toilet Ind Sherry K. Tub/Shower Ind ADNO - Locomotion L. Walk/Wheelchair (C) Ind Sherry L. Walk/Wheelchair (W) Ind Sherry M. Stairs Ind ADNO - Communication N. Comprehension (B) Ind Ind O. Expression (B) Ind Ind - Social Cognition P. Social Interaction Ind Ind Q. Problem Solving Ind Ind R. Memory Ind Ind - Endurance Fair - Balance Fair - Safety Awareness Fair CURRENT FUNC. DEFICITS: Safety Awareness, Transfers Control, Balance, Locomotion, Endurance, and Self-Care ASSESSMENT: Pt. is a 62 yo Right-handed white female.On 02/14/2018 she was admitted to [facility] with diagnosis Left Sacral Ala Insufficiency Fracture.Her impairment category is Orthopaedic D isorders 08 - Pelvic Fracture (08.3).Pre-morbidly, Pt. was independent/mod-I in Transfers Control, C ommunication, Social Cognition, Self-Care, Locomotion, and Sphincter Control; and she had good Sphinc ter Control.Currently, she has deficits of Safety Awareness, Transfers Control, Balance, Locomotion, Endurance, and Self-Care.Pt. is now referred to [facility] for acute in-patien t rehabilitation in order to maximize patient's functional independence in activities of daily living , strength, ROM, and mobility.- Rehab Goal Patient has realistic goal of being discharged at assistance level 6-Bushra to reside at Home with Fam roxana/Relatives. REHAB PLAN: - Physical Therapy Decreased range of motion - to improve, our physical therapists will perform initial evaluation of pt 's status upon admission and devise an individualized program for increasing patient's Range of Motio n. Gait dysfunction - to improve, our physical therapists will perform initial evaluation of pt's status upon admission and devise an individualized program for Gait Training, and Wheel Chair mobility Inability to transfer - to improve, our physical therapists will perform initial evaluation of pt's s tatus upon admission and devise an individualized program for Bed mobility Need for home safety evaluation - to improve, our physical therapists will perform initial evaluation of pt's status upon admission and devise an individualized program for Home Evaluation Need in caregiver upon discharge - to improve, our physical therapists will perform initial evaluatio n of pt's status upon admission and devise an individualized program for Caregiver Training New precaution - to improve, our physical therapists will perform initial evaluation of pt's status u jarrett admission and devise an individualized program for Patient precaution education Poor balance - to improve, our physical therapists will perform initial evaluation of pt's status upo n admission and devise an individualized program for Balance Training Poor endurance - to improve, our physical therapists will perform initial evaluation of pt's status u jarrett admission and devise an individualized program for Endurance Training Weakness - to improve, our physical therapists will perform initial evaluation of pt's status upon ad mission and devise an individualized program for Aquatic Therapy, Neuromuscular Reeducation, and Stre ngthening Achieving independence - to improve, our physical therapists will perform initial evaluation of pt's status upon admission and devise an individualized program for Community Reintegration Activities - Occupational Therapy ADL deficits - to improve, our occupation therapists will perform initial evaluation of pt's status u jarrett admission and devise an individualized program for Bathing, Bed mobility, Community Reintegration , Cooking, Dressing, Eating, Fine Motor Skills, Grooming, Homemaking, Kitchen Mobility, Laundry, Elvira ent Education, Safety Awareness, Splinting - Positioning, Transfers(Toilet, Tub, Shower), and Wheel C hair Management Need for care professionals - to improve, our occupation therapists will perform initial evaluation of pt's s tatus upon admission and devise an individualized program for Caregiver Training Weakness - to improve, our occupation therapists will perform initial evaluation of pt's status upon admission and devise an individualized program for Aquatic Therapy, Balance, Endurance, UE ROM, and U E strengthening MEDICAL PLAN: - Diet Type Start Regular - Diet - Liquid Texture Start Regular - Tube Feed Start N/A - Lab Results blood Sugar Check ACHS - Skin care per protocol - Diet - Solid Texture Regular - Shower shower DISCHARGE PLAN: - Estimated Length of Stay (days) 14. - Consensus on plan Discharge plan has been discussed with primary caregiver. Patient/Family is in agreement with the bobby n. Primary caregiver is in agreement with the plan. - Patient/Family Goals Return home with assistance. - Planned Living Setting Upon Discharge Home, to live with Family/Relatives. SIGNATURE PANEL: (AUDIOPROSTHOLOGIST)
[2018-02-20] MEDS: FERROUS SULFATE 325 MG TAB PO SCH (08:29)
[2018-02-20] MEDS: FE SULF/FA/VIT B COMP & C TAB PO SCH (08:29)
[2018-02-20] MEDS: LISINOPRIL 5 MG TAB PO SCH (08:29)
[2018-02-20] MEDS: CLOPIDOGREL 75 MG TABLET PO SCH (08:30)
[2018-02-20] MEDS: glipiZIDE 5 MG TAB PO SCH (08:30)
[2018-02-20] MEDS: FOLIC ACID 1 MG TABLET PO SCH (08:31)
[2018-02-20] MEDS: MEMANTINE HCL 10 MG TABLET PO SCH ×2 (08:31→20:23)
[2018-02-20] MEDS: ASPIRIN EC 81 MG TAB PO SCH (08:31)
[2018-02-20] MEDS: PARoxetine HCl 10 MG TAB PO SCH (08:32)
[2018-02-20] MEDS: CYANOCOBALAMIN 1,000 MCG TAB PO SCH (08:33)
[2018-02-20] MEDS ORDERED: POTASSIUM CL SA 10 MEQ TAB PO ONE (10:17)
--- NOTE | 2018-02-20 11:14 | FAST ---
ENCOUNTER DATE AND TIME: 02/20/2018 08:00 (ANIMAL HOSPITAL CLERK) NAME JULEE KENNEY DATE OF : 1955 DATE OF ADMISSION: 02/19/2018 15:02 (ANIMAL HOSPITAL CLERK) PHONE: AGE: 62 SSN# [id number] GENDER: Female ENCOUNTER PHYSICIAN: Dr. Nas Lunsford ADMISSION DIAGNOSIS: - Orthopaedic Disorders 08 - Pelvic Fracture (08.3) Left Sacral Ala Insufficiency Fracture. EATING: Activity did not occur on this shift EATING - SCORE: 0-UNK GROOMING: Activity did not occur on this shift GROOMING - SCORE: 0-UNK BATHING: Activity did not occur on this shift BATHING - SCORE: 0-UNK DRESSING - UPPER BODY: Activity did not occur on this shift Patient is not dressing in public clothing ARTICLES SCORE Total number of steps: 0 DRESSING - UPPER BODY - SCORE: 0-UNK DRESSING - LOWER BODY: Activity did not occur on this shift Patient is not dressing in public clothing ARTICLES SCORE Total number of steps: 0 DRESSING - LOWER BODY - SCORE: 0-UNK TOILETING: Activity did not occur on this shift TOILETING - SCORE: 0-UNK BLADDER MANAGEMENT: Activity did not occur on this shift BLADDER MANAGEMENT - SCORE: 7-IND BOWEL MANAGEMENT: Activity did not occur on this shift BOWEL MANAGEMENT - SCORE: 7-IND TRANSFERS: BED, CHAIR, WHEELCHAIR: TRANSFERS: BED, CHAIR, WHEELCHAIR - STEP 1: Does the patient require assistance of a person or device, or need extra time with bed, chair, or whe elchair transfers? Yes. TRANSFERS: BED, CHAIR, WHEELCHAIR - STEP 2: Does the patient require the assistance of a helper? Yes. TRANSFERS: BED, CHAIR, WHEELCHAIR - STEP 3: How much assistance does the patient require from the helper? Steadying/guiding assistance TRANSFERS: BED, CHAIR, WHEELCHAIR - SCORE: 4-MIN TRANSFERS: TOILET: Activity did not occur on this shift TRANSFERS: TOILET - SCORE: 0-UNK TRANSFERS: SHOWER: Activity did not occur on this shift TRANSFERS: SHOWER - SCORE: 0-UNK TRANSFERS: TUB: Activity did not occur on this shift TRANSFERS: TUB - SCORE: 0-UNK LOCOMOTION: WALK: LOCOMOTION: WALK - STEP 1: Does the patient need help from a person or device, or need extra time to walk 150 feet? Yes. LOCOMOTION: WALK - STEP 2: How much assistance does the patient require to walk a minimum of 150 feet? Only incidental help such as contact guarding or steadying LOCOMOTION: WALK - SCORE: 4-MIN LOCOMOTION: WHEELCHAIR: LOCOMOTION: WHEELCHAIR - STEP 1: Does the patient need help to go 150 feet in a wheelchair? Yes. LOCOMOTION: WHEELCHAIR - STEP 2: How much assistance does the patient need from the helper? Only supervision, cuing, or coaxing LOCOMOTION: WHEELCHAIR - SCORE: 5-SUP LOCOMOTION: STAIRS: Activity did not occur on this shift LOCOMOTION: STAIRS - SCORE: 0-UNK COMPREHENSION: COMPREHENSION - SCORE: 0-UNK EXPRESSION EXPRESSION - SCORE: 0-UNK SOCIAL INTERACTION: SOCIAL INTERACTION - SCORE: 0-UNK PROBLEM SOLVING: PROBLEM SOLVING - SCORE: 0-UNK MEMORY: MEMORY - SCORE: 0-UNK SIGNATURE PANEL: The following modified sections: Transfers: Bed, Chair, Wheelchair - Score, Transfers: Toilet - Score , Locomotion: Walk - Score, Locomotion: Wheelchair - Score, Locomotion: Stairs - Score were [electron lamont] signed by Kale Hollingsworth, PT on MonFeb 20 2018 11:12:52 GMT-0600 (Central Standard Time)
[2018-02-20] MEDS: HYDROCODONE/APAP 5/325 MG TAB PO PRN ×2 (13:05→20:27)
--- NOTE | 2018-02-20 15:55 | FAST ---
SHIFT START DATE/TIME: 02/20/2018 07:00 (CDL PROGRAM COORDINATOR) SHIFT END DATE/TIME: 02/20/2018 19:00 (CDL PROGRAM COORDINATOR) NAME JULEE KENNEY DATE OF : 1955 DATE OF ADMISSION: 02/19/2018 15:02 (CDL PROGRAM COORDINATOR) PHONE: AGE: 62 SSN# [id number] GENDER: Female ENCOUNTER PHYSICIAN: Dr. Nas Lunsford ADMISSION DIAGNOSIS: - Orthopaedic Disorders 08 - Pelvic Fracture (08.3) Left Sacral Ala Insufficiency Fracture. EATING: EATING - STEP 1: Does the patient require the assistance of a person or device, or need extra time when eating? Yes. EATING - STEP 2: Does the patient require the assistance of a helper? No, patient only requires an assistive device, O R s/he takes more than reasonable time to eat, OR there is a safety concern, OR s/he requires modifie d food consistency EATING - SCORE: 6-CYNDIE GROOMING: Comb/brush hair Oral care Wash, rinse, and dry face GROOMING - STEP 1: Does the patient require the assistance of a person or device, or need extra time when grooming? Yes. GROOMING - STEP 2: Does the patient require the assistance of a helper? No. The patient only requires an assistive devic e, OR takes more than reasonable time to groom, OR there is a concern for safety as the patient groom s GROOMING - SCORE: 6-CYNDIE BATHING: Activity did not occur on this shift BATHING - SCORE: 0-UNK DRESSING - UPPER BODY: T-shirt/pullover shirt (four steps) ARTICLES SCORE Total number of steps: 4 DRESSING - UPPER BODY - STEP 1: Does the patient require help from a person or device, or need extra time when dressing above the gabino st? Yes. DRESSING - UPPER BODY - STEP 2: Does the patient require the assistance of a helper? No. Patient only requires an assistive device, s uch as a button hook, velcro, or specifications checker. OR s/he takes more than reasonable time as s/he dresses the upper body. OR there is a concern for safety when s/he dresses the upper body DRESSING - UPPER BODY - SCORE: 6-CYNDIE DRESSING - LOWER BODY: Elastic waist pants (three steps) Sock - Left foot (one step) Sock - Right foot (one step) Tied or buckled shoe - Left foot (two steps) Tied or buckled shoe - Right foot (two steps) Underwear (three steps) ARTICLES SCORE Total number of steps: 12 DRESSING - LOWER BODY - STEP 1: Does the patient require help from a person or device, or need extra time when dressing below the gabino st? Yes. DRESSING - LOWER BODY - STEP 2: Does the patient require the assistance of a helper? Yes. DRESSING - LOWER BODY - STEP 3: Does the helper touch the patient while dressing? Yes. DRESSING - LOWER BODY - STEP 4: How many of the total steps does the patient complete on his/her own? 4 DRESSING - LOWER BODY - STEP 5: Does patient require total assistance for dressing below the waist such as the helper holding clothin g and performing basically all the activities? No. DRESSING - LOWER BODY - SCORE: 2-MAX TOILETING: TOILETING - STEP 1: Does the patient require the assistance of a person or device, or need extra time with toileting? Yes . TOILETING - STEP 2: Does the patient require the assistance of a helper? Yes. TOILETING - STEP 3: How much assistance does the patient require from the helper? Only supervision TOILETING - SCORE: 5-SUP BLADDER MANAGEMENT: BLADDER MANAGEMENT - STEP 1: Does the patient control the bladder completely and intentionally without equipment or devices or med ications, and is always continent? No. BLADDER MANAGEMENT - STEP 2: Does the patient require the assistance of a helper? No, patient only requires extra time BLADDER MANAGEMENT - SCORE: 6-CYNDIE BLADDER MANAGEMENT - FREQUENCY OF ACCIDENTS: BLADDER MANAGEMENT(FA) - STEP 1: How many accidents has the patient had during the current shift? 0 BOWEL MANAGEMENT: Activity did not occur on this shift BOWEL MANAGEMENT - SCORE: 7-IND TRANSFERS: BED, CHAIR, WHEELCHAIR: TRANSFERS: BED, CHAIR, WHEELCHAIR - STEP 1: Does the patient require assistance of a person or device, or need extra time with bed, chair, or whe elchair transfers? Yes. TRANSFERS: BED, CHAIR, WHEELCHAIR - STEP 2: Does the patient require the assistance of a helper? Yes. TRANSFERS: BED, CHAIR, WHEELCHAIR - STEP 3: How much assistance does the patient require from the helper? Steadying/guiding assistance TRANSFERS: BED, CHAIR, WHEELCHAIR - SCORE: 4-MIN TRANSFERS: TOILET: TRANSFERS: TOILET - STEP 1: Does the patient require the assistance of a person or device, or need extra time with toilet transfe rs? Yes. TRANSFERS: TOILET - STEP 2: Does the patient require the assistance of a helper? No. Patient only requires an assistive device arriola ch as a grab bar or special seat, OR s/he takes more than reasonable time to perform toilet transfers , OR there is a safety concern when s/he performs toilet transfers. TRANSFERS: TOILET - SCORE: 6-CYNDIE TRANSFERS: SHOWER: Activity did not occur on this shift TRANSFERS: SHOWER - SCORE: 0-UNK TRANSFERS: TUB: Activity did not occur on this shift TRANSFERS: TUB - SCORE: 0-UNK LOCOMOTION: WALK: Activity did not occur on this shift LOCOMOTION: WALK - SCORE: 0-UNK LOCOMOTION: WHEELCHAIR: Activity did not occur on this shift LOCOMOTION: WHEELCHAIR - SCORE: 0-UNK COMPREHENSION: COMPREHENSION: TYPE: Both COMPREHENSION - STEP 1: Does the patient require help from a person or device, or need extra time to understand complex and a bstract ideas (such as current events, finances, discharge planning, medical issues, relationships, e tc)? No. COMPREHENSION - STEP 2: Does the patient need extra time, require an assistive device (such as glasses for visual comprehensi on or a hearing aid for auditory comprehension) or does s/he have mild difficulty understanding compl ex and abstract information? Yes. COMPREHENSION - SCORE: 6-CYNDIE EXPRESSION EXPRESSION: TYPE: Both EXPRESSION - STEP 1: Does the patient require help from a person or device, or need extra time expressing complex and abst ract ideas (such as current events, finances, discharge planning, medical issues, relationships, etc) ? No. EXPRESSION - STEP 2: Does the patient need extra time, require an assistive device (such as augmentive communication syste m or a communication board), OR does s/he have mild difficulty expressing complex and abstract ideas (including mild dysarthria or mild word-find problems)? Yes. EXPRESSION - SCORE: 6-CYNDIE SOCIAL INTERACTION: SOCIAL INTERACTION - STEP 1: Does the patient require a helper to interact with others in social and therapeutic situations? No. SOCIAL INTERACTION - STEP 2: Does the patient need extra time in social situations, OR does s/he interact with staff, other patien ts, and family members ONLY in structured environments, OR does s/he require medication for social in teraction? Yes, patient needs extra time SOCIAL INTERACTION - SCORE: 6-CYNDIE PROBLEM SOLVING: PROBLEM SOLVING - STEP 1: Does the patient need help from a person or device, or need extra time to solve complex problems such as managing a checking account or confronting interpersonal problems? No. PROBLEM SOLVING - STEP 2: Does the patient require extra time to make decisions or solve problems, OR does s/he have slight dif ficulty reading, initiating, or self-correcting in unfamiliar situations? Yes, patient needs extra ti me. PROBLEM SOLVING - SCORE: 6-CYNDIE MEMORY: MEMORY - STEP 1: Does the patient need help from a person or device, or need extra time to remember frequently encount ered people, daily routines, and executing requests? No. MEMORY - STEP 2: Does the patient have slight difficulty recognizing frequently encountered people, daily routines, or executing requests without the need for repetition or using self-initiated or environmental cues to remember? Yes. MEMORY - SCORE: 6-CYNDIE SIGNATURE PANEL: The following modified sections: Eating - Score, Grooming - Score, Bathing - Score, Dressing - Upper Body - Score, Dressing - Lower Body - Score, Toileting - Score, Bladder Management - Score, Bowel Man agement - Score, Transfers: Bed, Chair, Wheelchair - Score, Transfers: Toilet - Score, Transfers: Sia wer - Score, Transfers: Tub - Score, Locomotion: Walk - Score, Locomotion: Wheelchair - Score, Compre hension - Score, Expression - Score, Social Interaction - Score, Problem Solving - Score, Memory - Sc ore were [electronically] signed by Oriana CarrN.Mandy on MonFeb 20 2018 15:54:00 GMT-0600 (Centra l Standard Time)
[2018-02-20] MEDS: DOCUSATE NA/SENNA CONC 1 TAB PO SCH (20:23)
[2018-02-20] MEDS: MELATONIN 3 MG TABLET PO PRN (20:23)
[2018-02-20] MEDS: ATORVASTATIN 20 MG TAB PO SCH (20:23)
[2018-02-20] MEDS: PROMOD 30 ML DOSE PO SCH (20:24)
--- NOTE | 2018-02-21 02:32 | FAST ---
SHIFT START DATE/TIME: 02/20/2018 19:00 (DENTAL OFFICE COORDINATOR) SHIFT END DATE/TIME: 02/21/2018 07:00 (DENTAL OFFICE COORDINATOR) NAME JULEE KENNEY DATE OF : 1955 DATE OF ADMISSION: 02/19/2018 15:02 (DENTAL OFFICE COORDINATOR) PHONE: AGE: 62 SSN# [id number] GENDER: Female ENCOUNTER PHYSICIAN: Dr. Nas Lunsford ADMISSION DIAGNOSIS: - Orthopaedic Disorders 08 - Pelvic Fracture (08.3) Left Sacral Ala Insufficiency Fracture. EATING: Activity did not occur on this shift EATING - SCORE: 0-UNK GROOMING: Activity did not occur on this shift GROOMING - SCORE: 0-UNK BATHING: Activity did not occur on this shift BATHING - SCORE: 0-UNK DRESSING - UPPER BODY: Patient is not dressing in public clothing ARTICLES SCORE Total number of steps: 0 DRESSING - UPPER BODY - SCORE: 0-UNK DRESSING - LOWER BODY: Patient is not dressing in public clothing ARTICLES SCORE Total number of steps: 0 DRESSING - LOWER BODY - SCORE: 0-UNK TOILETING: TOILETING - STEP 1: Does the patient require the assistance of a person or device, or need extra time with toileting? Yes . TOILETING - STEP 2: Does the patient require the assistance of a helper? Yes. TOILETING - STEP 3: How much assistance does the patient require from the helper? Only supervision TOILETING - SCORE: 5-SUP BLADDER MANAGEMENT: BLADDER MANAGEMENT - STEP 1: Does the patient control the bladder completely and intentionally without equipment or devices or med ications, and is always continent? Yes. BLADDER MANAGEMENT - SCORE: 7-IND BOWEL MANAGEMENT: Activity did not occur on this shift BOWEL MANAGEMENT - SCORE: 7-IND TRANSFERS: BED, CHAIR, WHEELCHAIR: TRANSFERS: BED, CHAIR, WHEELCHAIR - STEP 1: Does the patient require assistance of a person or device, or need extra time with bed, chair, or whe elchair transfers? Yes. TRANSFERS: BED, CHAIR, WHEELCHAIR - STEP 2: Does the patient require the assistance of a helper? Yes. TRANSFERS: BED, CHAIR, WHEELCHAIR - STEP 3: How much assistance does the patient require from the helper? Lifting of the legs TRANSFERS: BED, CHAIR, WHEELCHAIR - STEP 4: How many legs does the patient require the helper to lift? one leg TRANSFERS: BED, CHAIR, WHEELCHAIR - SCORE: 4-MIN TRANSFERS: TOILET: TRANSFERS: TOILET - STEP 1: Does the patient require the assistance of a person or device, or need extra time with toilet transfe rs? Yes. TRANSFERS: TOILET - STEP 2: Does the patient require the assistance of a helper? Yes. TRANSFERS: TOILET - STEP 3: How much assistance does the patient require from the helper? Only supervision, cuing, coaxing, OR he lp to set out transfer equipment or to lock brakes and/or lift foot rests TRANSFERS: TOILET - SCORE: 5-SUP TRANSFERS: SHOWER: Activity did not occur on this shift TRANSFERS: SHOWER - SCORE: 0-UNK TRANSFERS: TUB: Activity did not occur on this shift TRANSFERS: TUB - SCORE: 0-UNK LOCOMOTION: WALK: Activity did not occur on this shift LOCOMOTION: WALK - SCORE: 0-UNK LOCOMOTION: WHEELCHAIR: Activity did not occur on this shift LOCOMOTION: WHEELCHAIR - SCORE: 0-UNK COMPREHENSION: COMPREHENSION: TYPE: Both COMPREHENSION - STEP 1: Does the patient require help from a person or device, or need extra time to understand complex and a bstract ideas (such as current events, finances, discharge planning, medical issues, relationships, e tc)? No. COMPREHENSION - STEP 2: Does the patient need extra time, require an assistive device (such as glasses for visual comprehensi on or a hearing aid for auditory comprehension) or does s/he have mild difficulty understanding compl ex and abstract information? Yes. COMPREHENSION - SCORE: 6-CYNDIE EXPRESSION EXPRESSION: TYPE: Both EXPRESSION - STEP 1: Does the patient require help from a person or device, or need extra time expressing complex and abst ract ideas (such as current events, finances, discharge planning, medical issues, relationships, etc) ? No. EXPRESSION - STEP 2: Does the patient need extra time, require an assistive device (such as augmentive communication syste m or a communication board), OR does s/he have mild difficulty expressing complex and abstract ideas (including mild dysarthria or mild word-find problems)? No. EXPRESSION - SCORE: 7-IND SOCIAL INTERACTION: SOCIAL INTERACTION - STEP 1: Does the patient require a helper to interact with others in social and therapeutic situations? No. SOCIAL INTERACTION - STEP 2: Does the patient need extra time in social situations, OR does s/he interact with staff, other patien ts, and family members ONLY in structured environments, OR does s/he require medication for social in teraction? Yes, patient needs extra time SOCIAL INTERACTION - SCORE: 6-CYNDIE PROBLEM SOLVING: PROBLEM SOLVING - STEP 1: Does the patient need help from a person or device, or need extra time to solve complex problems such as managing a checking account or confronting interpersonal problems? No. PROBLEM SOLVING - STEP 2: Does the patient require extra time to make decisions or solve problems, OR does s/he have slight dif ficulty reading, initiating, or self-correcting in unfamiliar situations? Yes, patient needs extra ti me. PROBLEM SOLVING - SCORE: 6-CYNDIE MEMORY: MEMORY - STEP 1: Does the patient need help from a person or device, or need extra time to remember frequently encount ered people, daily routines, and executing requests? No. MEMORY - STEP 2: Does the patient have slight difficulty recognizing frequently encountered people, daily routines, or executing requests without the need for repetition or using self-initiated or environmental cues to remember? Yes. MEMORY - SCORE: 6-CYNDIE SIGNATURE PANEL: The following modified sections: Eating - Score, Grooming - Score, Dressing - Upper Body - Score, Arash ssing - Lower Body - Score, Toileting - Score, Bladder Management - Score, Bowel Management - Score, Transfers: Bed, Chair, Wheelchair - Score, Transfers: Toilet - Score, Transfers: Shower - Score, Monsalve sfers: Tub - Score, Locomotion: Walk - Score, Locomotion: Wheelchair - Score, Comprehension - Score, Expression - Score, Social Interaction - Score, Problem Solving - Score, Memory - Score were [electro nically] signed by Nila Kennedy CNA on MonFeb 21 2018 02:17:22 GMT-0600 (Central Standard Time)
[2018-02-21] MEDS: METOPROLOL TAR 25 MG TAB PO SCH (03:58)
[2018-02-21] MEDS: HYDROCODONE/APAP 5/325 MG TAB PO PRN ×4 (04:02→21:29)
[2018-02-21] MEDS: INSULIN -REGULAR HUMAN 50 UNIT/0.5 ML ML SQ SCH ×4 (07:30→21:00)
[2018-02-21] MEDS: PROMOD 30 ML DOSE PO SCH ×2 (08:00→20:00)
[2018-02-21] MEDS: ASPIRIN EC 81 MG TAB PO SCH (08:09)
[2018-02-21] MEDS: CYANOCOBALAMIN 1,000 MCG TAB PO SCH (08:09)
[2018-02-21] MEDS: FE SULF/FA/VIT B COMP & C TAB PO SCH (08:09)
[2018-02-21] MEDS: FERROUS SULFATE 325 MG TAB PO SCH (08:09)
[2018-02-21] MEDS: FOLIC ACID 1 MG TABLET PO SCH (08:10)
[2018-02-21] MEDS: MEMANTINE HCL 10 MG TABLET PO SCH ×2 (08:10→21:26)
[2018-02-21] MEDS: LISINOPRIL 5 MG TAB PO SCH ×2 (08:10→21:27)
[2018-02-21] MEDS: glipiZIDE 5 MG TAB PO SCH (08:10)
[2018-02-21] MEDS: PARoxetine HCl 10 MG TAB PO SCH (08:11)
[2018-02-21] MEDS: CLOPIDOGREL 75 MG TABLET PO SCH (08:11)
[2018-02-21] MEDS: POLYETHYL GLY 3350 17 GM/DOSE PO PRN (10:55)
--- NOTE | 2018-02-21 14:42 | FAST ---
SHIFT START DATE/TIME: 02/21/2018 07:00 (PIPE FINISHING SUPERVISOR) SHIFT END DATE/TIME: 02/21/2018 19:00 (PIPE FINISHING SUPERVISOR) NAME JULEE KENNEY DATE OF : 1955 DATE OF ADMISSION: 02/19/2018 15:02 (PIPE FINISHING SUPERVISOR) PHONE: AGE: 62 SSN# [id number] GENDER: Female ENCOUNTER PHYSICIAN: Dr. Nas Lunsford ADMISSION DIAGNOSIS: - Orthopaedic Disorders 08 - Pelvic Fracture (08.3) Left Sacral Ala Insufficiency Fracture. EATING: EATING - STEP 1: Does the patient require the assistance of a person or device, or need extra time when eating? Yes. EATING - STEP 2: Does the patient require the assistance of a helper? Yes. EATING - STEP 3: Does the patient perform half or more of the eating tasks? Yes. EATING - STEP 4: Does the patient need only supervision, cuing, coaxing OR help to apply an orthosis OR help to cut fo od, open containers, pour liquids, or butter bread? Yes. EATING - SCORE: 5-SUP GROOMING: Comb/brush hair Oral care GROOMING - STEP 1: Does the patient require the assistance of a person or device, or need extra time when grooming? Yes. GROOMING - STEP 2: Does the patient require the assistance of a helper? Yes. GROOMING - STEP 3: How much assistance does the patient require from the helper? Only prior equipment preparation/set up from the helper GROOMING - SCORE: 5-SUP BATHING: Activity did not occur on this shift BATHING - SCORE: 0-UNK DRESSING - UPPER BODY: Activity did not occur on this shift ARTICLES SCORE Total number of steps: 0 DRESSING - UPPER BODY - SCORE: 0-UNK DRESSING - LOWER BODY: Activity did not occur on this shift ARTICLES SCORE Total number of steps: 0 DRESSING - LOWER BODY - SCORE: 0-UNK TOILETING: TOILETING - STEP 1: Does the patient require the assistance of a person or device, or need extra time with toileting? Yes . TOILETING - STEP 2: Does the patient require the assistance of a helper? Yes. TOILETING - STEP 3: How much assistance does the patient require from the helper? Hands-on assistance from the helper TOILETING - STEP 4: Of the 3 tasks: 1) Adjusting clothing prior to use, 2) Cleansing of perineal area, 3) Adjusting clot dameon after use; How many tasks does the patient perform WITHOUT assistance of the helper? Three tasks with steadying assistance from the helper TOILETING - SCORE: 4-MIN BLADDER MANAGEMENT: BLADDER MANAGEMENT - STEP 1: Does the patient control the bladder completely and intentionally without equipment or devices or med ications, and is always continent? No. BLADDER MANAGEMENT - STEP 2: Does the patient require the assistance of a helper? No, patient requires and independently uses an a ssistive device, such as a urinal, bedpan, bedside commode, catheter, absorbent pad, or collecting de vice BLADDER MANAGEMENT - SCORE: 6-CYNDIE BOWEL MANAGEMENT: Activity did not occur on this shift BOWEL MANAGEMENT - SCORE: 7-IND TRANSFERS: BED, CHAIR, WHEELCHAIR: TRANSFERS: BED, CHAIR, WHEELCHAIR - STEP 1: Does the patient require assistance of a person or device, or need extra time with bed, chair, or whe elchair transfers? Yes. TRANSFERS: BED, CHAIR, WHEELCHAIR - STEP 2: Does the patient require the assistance of a helper? Yes. TRANSFERS: BED, CHAIR, WHEELCHAIR - STEP 3: How much assistance does the patient require from the helper? Steadying/guiding assistance TRANSFERS: BED, CHAIR, WHEELCHAIR - SCORE: 4-MIN TRANSFERS: TOILET: TRANSFERS: TOILET - STEP 1: Does the patient require the assistance of a person or device, or need extra time with toilet transfe rs? Yes. TRANSFERS: TOILET - STEP 2: Does the patient require the assistance of a helper? Yes. TRANSFERS: TOILET - STEP 3: How much assistance does the patient require from the helper? Patient performs half or more of the tr ansferring tasks TRANSFERS: TOILET - STEP 4: Does the patient need only incidental help such as contact guard or steadying during toilet transfer? Yes. TRANSFERS: TOILET - SCORE: 4-MIN TRANSFERS: SHOWER: Activity did not occur on this shift TRANSFERS: SHOWER - SCORE: 0-UNK TRANSFERS: TUB: Activity did not occur on this shift TRANSFERS: TUB - SCORE: 0-UNK LOCOMOTION: WALK: Activity did not occur on this shift LOCOMOTION: WALK - SCORE: 0-UNK LOCOMOTION: WHEELCHAIR: Activity did not occur on this shift LOCOMOTION: WHEELCHAIR - SCORE: 0-UNK COMPREHENSION: COMPREHENSION: TYPE: Both COMPREHENSION - STEP 1: Does the patient require help from a person or device, or need extra time to understand complex and a bstract ideas (such as current events, finances, discharge planning, medical issues, relationships, e tc)? No. COMPREHENSION - STEP 2: Does the patient need extra time, require an assistive device (such as glasses for visual comprehensi on or a hearing aid for auditory comprehension) or does s/he have mild difficulty understanding compl ex and abstract information? Yes. COMPREHENSION - SCORE: 6-CYNDIE EXPRESSION EXPRESSION: TYPE: Both EXPRESSION - STEP 1: Does the patient require help from a person or device, or need extra time expressing complex and abst ract ideas (such as current events, finances, discharge planning, medical issues, relationships, etc) ? No. EXPRESSION - STEP 2: Does the patient need extra time, require an assistive device (such as augmentive communication syste m or a communication board), OR does s/he have mild difficulty expressing complex and abstract ideas (including mild dysarthria or mild word-find problems)? Yes. EXPRESSION - SCORE: 6-CYNDIE SOCIAL INTERACTION: SOCIAL INTERACTION - STEP 1: Does the patient require a helper to interact with others in social and therapeutic situations? No. SOCIAL INTERACTION - STEP 2: Does the patient need extra time in social situations, OR does s/he interact with staff, other patien ts, and family members ONLY in structured environments, OR does s/he require medication for social in teraction? Yes, patient needs extra time SOCIAL INTERACTION - SCORE: 6-CYNDIE PROBLEM SOLVING: PROBLEM SOLVING - STEP 1: Does the patient need help from a person or device, or need extra time to solve complex problems such as managing a checking account or confronting interpersonal problems? No. PROBLEM SOLVING - STEP 2: Does the patient require extra time to make decisions or solve problems, OR does s/he have slight dif ficulty reading, initiating, or self-correcting in unfamiliar situations? Yes, patient needs extra ti me. PROBLEM SOLVING - SCORE: 6-CYNDIE MEMORY: MEMORY - STEP 1: Does the patient need help from a person or device, or need extra time to remember frequently encount ered people, daily routines, and executing requests? No. MEMORY - STEP 2: Does the patient have slight difficulty recognizing frequently encountered people, daily routines, or executing requests without the need for repetition or using self-initiated or environmental cues to remember? Yes. MEMORY - SCORE: 6-CYNDIE SIGNATURE PANEL: The following modified sections: Eating - Score, Grooming - Score, Bathing - Score, Dressing - Upper Body - Score, Dressing - Lower Body - Score, Toileting - Score, Bladder Management - Score, Bowel Man agement - Score, Transfers: Bed, Chair, Wheelchair - Score, Transfers: Toilet - Score, Transfers: Sia wer - Score, Transfers: Tub - Score, Locomotion: Walk - Score, Locomotion: Wheelchair - Score, Compre hension - Score, Expression - Score, Social Interaction - Score, Problem Solving - Score, Memory - Sc ore were [electronically] signed by Moe Vallejo on MonFeb 21 2018 14:41:12 GMT-0600 (Central Standard Time)
--- NOTE | 2018-02-21 16:25 | FAST ---
ENCOUNTER DATE AND TIME: 02/21/2018 08:00 (SHAKE CUTTER) NAME JULEE KENNEY DATE OF : 1955 DATE OF ADMISSION: 02/19/2018 15:02 (SHAKE CUTTER) PHONE: AGE: 62 SSN# [id number] GENDER: Female ENCOUNTER PHYSICIAN: Dr. Nas Lunsford ADMISSION DIAGNOSIS: - Orthopaedic Disorders 08 - Pelvic Fracture (08.3) Left Sacral Ala Insufficiency Fracture. EATING: Activity did not occur on this shift EATING - SCORE: 0-UNK GROOMING: Activity did not occur on this shift GROOMING - SCORE: 0-UNK BATHING: Activity did not occur on this shift BATHING - SCORE: 0-UNK DRESSING - UPPER BODY: Activity did not occur on this shift Patient is not dressing in public clothing ARTICLES SCORE Total number of steps: 0 DRESSING - UPPER BODY - SCORE: 0-UNK DRESSING - LOWER BODY: Activity did not occur on this shift Patient is not dressing in public clothing ARTICLES SCORE Total number of steps: 0 DRESSING - LOWER BODY - SCORE: 0-UNK TOILETING: Activity did not occur on this shift TOILETING - SCORE: 0-UNK BLADDER MANAGEMENT: Activity did not occur on this shift BLADDER MANAGEMENT - SCORE: 7-IND BOWEL MANAGEMENT: Activity did not occur on this shift BOWEL MANAGEMENT - SCORE: 7-IND TRANSFERS: BED, CHAIR, WHEELCHAIR: TRANSFERS: BED, CHAIR, WHEELCHAIR - STEP 1: Does the patient require assistance of a person or device, or need extra time with bed, chair, or whe elchair transfers? Yes. TRANSFERS: BED, CHAIR, WHEELCHAIR - STEP 2: Does the patient require the assistance of a helper? Yes. TRANSFERS: BED, CHAIR, WHEELCHAIR - STEP 3: How much assistance does the patient require from the helper? Only supervision TRANSFERS: BED, CHAIR, WHEELCHAIR - SCORE: 5-SUP TRANSFERS: TOILET: Activity did not occur on this shift TRANSFERS: TOILET - SCORE: 0-UNK TRANSFERS: SHOWER: Activity did not occur on this shift TRANSFERS: SHOWER - SCORE: 0-UNK TRANSFERS: TUB: Activity did not occur on this shift TRANSFERS: TUB - SCORE: 0-UNK LOCOMOTION: WALK: LOCOMOTION: WALK - STEP 1: Does the patient need help from a person or device, or need extra time to walk 150 feet? Yes. LOCOMOTION: WALK - STEP 2: How much assistance does the patient require to walk a minimum of 150 feet? Only incidental help such as contact guarding or steadying LOCOMOTION: WALK - SCORE: 4-MIN LOCOMOTION: WHEELCHAIR: Activity did not occur on this shift LOCOMOTION: WHEELCHAIR - SCORE: 0-UNK LOCOMOTION: STAIRS: Activity did not occur on this shift LOCOMOTION: STAIRS - SCORE: 0-UNK COMPREHENSION: COMPREHENSION - SCORE: 0-UNK EXPRESSION EXPRESSION - SCORE: 0-UNK SOCIAL INTERACTION: SOCIAL INTERACTION - SCORE: 0-UNK PROBLEM SOLVING: PROBLEM SOLVING - SCORE: 0-UNK MEMORY: MEMORY - SCORE: 0-UNK SIGNATURE PANEL: The following modified sections: Transfers: Bed, Chair, Wheelchair - Score, Transfers: Toilet - Score , Locomotion: Walk - Score, Locomotion: Wheelchair - Score, Locomotion: Stairs - Score were [electron icabull] signed by Kale Hollingsworth PT on MonFeb 21 2018 16:24:16 GMT-0600 (Central Standard Time)
--- NOTE | 2018-02-21 16:42 | FAST ---
ENCOUNTER DATE AND TIME: 02/20/2018 08:00 (METROPOLITAN EDITOR) NAME JULEE KENNEY DATE OF : 1955 DATE OF ADMISSION: 02/19/2018 15:02 (METROPOLITAN EDITOR) PHONE: AGE: 62 SSN# [id number] GENDER: Female ENCOUNTER PHYSICIAN: Dr. Nas Lunsford ADMISSION DIAGNOSIS: - Orthopaedic Disorders 08 - Pelvic Fracture (08.3) Left Sacral Ala Insufficiency Fracture. EATING: EATING - STEP 1: Does the patient require the assistance of a person or device, or need extra time when eating? No. EATING - SCORE: 7-IND GROOMING: Comb/brush hair Oral care Wash, rinse, and dry face Wash, rinse, and dry hands GROOMING - STEP 1: Does the patient require the assistance of a person or device, or need extra time when grooming? No. GROOMING - SCORE: 7-IND BATHING: Abdomen Buttocks Chest Left arm Left lower leg and foot Left upper leg Perineal area Right arm Right lower leg and foot Right upper leg BATHING - STEP 1: Does the patient require the assistance of a person or device, or need extra time when bathing? Yes. BATHING - STEP 2: Does the patient require the assistance of a helper? Yes. BATHING - STEP 3: How much assistance does the patient require from the helper? More than just incidental help BATHING - STEP 4: What percent of the body parts did the patient bathe WITHOUT the helper? Half or more of the body par ts BATHING - SCORE: 3-MOD DRESSING - UPPER BODY: T-shirt/pullover shirt (four steps) ARTICLES SCORE Total number of steps: 4 DRESSING - UPPER BODY - STEP 1: Does the patient require help from a person or device, or need extra time when dressing above the gab[address] st? Yes. DRESSING - UPPER BODY - STEP 2: Does the patient require the assistance of a helper? Yes. DRESSING - UPPER BODY - STEP 3: Does the helper touch the patient while dressing? No. DRESSING - UPPER BODY - SCORE: 5-SUP DRESSING - LOWER BODY: Elastic waist pants (three steps) Sock - Left foot (one step) Sock - Right foot (one step) Underwear (three steps) ARTICLES SCORE Total number of steps: 8 DRESSING - LOWER BODY - STEP 1: Does the patient require help from a person or device, or need extra time when dressing below the gab[address] st? Yes. DRESSING - LOWER BODY - STEP 2: Does the patient require the assistance of a helper? Yes. DRESSING - LOWER BODY - STEP 3: Does the helper touch the patient while dressing? Yes. DRESSING - LOWER BODY - STEP 4: How many of the total steps does the patient complete on his/her own? 2 DRESSING - LOWER BODY - STEP 5: Does patient require total assistance for dressing below the waist such as the helper holding clothin g and performing basically all the activities? No. DRESSING - LOWER BODY - SCORE: 2-MAX TOILETING: TOILETING - STEP 1: Does the patient require the assistance of a person or device, or need extra time with toileting? Yes . TOILETING - STEP 2: Does the patient require the assistance of a helper? Yes. TOILETING - STEP 3: How much assistance does the patient require from the helper? Hands-on assistance from the helper TOILETING - STEP 4: Of the 3 tasks: 1) Adjusting clothing prior to use, 2) Cleansing of perineal area, 3) Adjusting clot dameon after use; How many tasks does the patient perform WITHOUT assistance of the helper? Three tasks with steadying assistance from the helper TOILETING - SCORE: 4-MIN BLADDER MANAGEMENT: Activity did not occur on this shift BLADDER MANAGEMENT - SCORE: 7-IND BOWEL MANAGEMENT: Activity did not occur on this shift BOWEL MANAGEMENT - SCORE: 7-IND TRANSFERS: BED, CHAIR, WHEELCHAIR: TRANSFERS: BED, CHAIR, WHEELCHAIR - STEP 1: Does the patient require assistance of a person or device, or need extra time with bed, chair, or whe elchair transfers? Yes. TRANSFERS: BED, CHAIR, WHEELCHAIR - STEP 2: Does the patient require the assistance of a helper? Yes. TRANSFERS: BED, CHAIR, WHEELCHAIR - STEP 3: How much assistance does the patient require from the helper? Steadying/guiding assistance TRANSFERS: BED, CHAIR, WHEELCHAIR - SCORE: 4-MIN TRANSFERS: TOILET: TRANSFERS: TOILET - STEP 1: Does the patient require the assistance of a person or device, or need extra time with toilet transfe rs? Yes. TRANSFERS: TOILET - STEP 2: Does the patient require the assistance of a helper? Yes. TRANSFERS: TOILET - STEP 3: How much assistance does the patient require from the helper? Patient performs half or more of the tr ansferring tasks TRANSFERS: TOILET - STEP 4: Does the patient need only incidental help such as contact guard or steadying during toilet transfer? No. Patient needs more than incidental help TRANSFERS: TOILET - SCORE: 3-MOD TRANSFERS: SHOWER: TRANSFERS: SHOWER - STEP 1: Does the patient require the assistance of a person or device, or need extra time with shower transfe rs? Yes. TRANSFERS: SHOWER - STEP 2: Does the patient require the assistance of a helper? Yes. TRANSFERS: SHOWER - STEP 3: How much assistance does the patient require from the helper? More than incidental help TRANSFERS: SHOWER - STEP 4: How much more help does the patient require from the helper? Lifting the patient up AND down from the wheelchair onto the shower chair TRANSFERS: SHOWER - SCORE: 2-MAX TRANSFERS: TUB: TRANSFERS: TUB - STEP 1: Does the patient require the assistance of a person or device, or need extra time with tub transfers? Yes. TRANSFERS: TUB - STEP 2: Does the patient require the assistance of a helper? Yes. TRANSFERS: TUB - STEP 3: How much assistance does the patient require from the helper? More than incidental help TRANSFERS: TUB - STEP 4: How much more help does the patient require from the helper? [place] lifts patient up out of the wheel chair AND down onto the tub bench TRANSFERS: TUB - SCORE: 2-MAX LOCOMOTION: WALK: Activity did not occur on this shift LOCOMOTION: WALK - SCORE: 0-UNK LOCOMOTION: WHEELCHAIR: Activity did not occur on this shift LOCOMOTION: WHEELCHAIR - SCORE: 0-UNK LOCOMOTION: STAIRS: Activity did not occur on this shift LOCOMOTION: STAIRS - SCORE: 0-UNK COMPREHENSION: COMPREHENSION: TYPE: Both COMPREHENSION - STEP 1: Does the patient require help from a person or device, or need extra time to understand complex and a bstract ideas (such as current events, finances, discharge planning, medical issues, relationships, e tc)? No. COMPREHENSION - STEP 2: Does the patient need extra time, require an assistive device (such as glasses for visual comprehensi on or a hearing aid for auditory comprehension) or does s/he have mild difficulty understanding compl ex and abstract information? No. COMPREHENSION - SCORE: 7-IND EXPRESSION EXPRESSION: TYPE: Both EXPRESSION - STEP 1: Does the patient require help from a person or device, or need extra time expressing complex and abst ract ideas (such as current events, finances, discharge planning, medical issues, relationships, etc) ? No. EXPRESSION - STEP 2: Does the patient need extra time, require an assistive device (such as augmentive communication syste m or a communication board), OR does s/he have mild difficulty expressing complex and abstract ideas (including mild dysarthria or mild word-find problems)? No. EXPRESSION - SCORE: 7-IND SOCIAL INTERACTION: SOCIAL INTERACTION - STEP 1: Does the patient require a helper to interact with others in social and therapeutic situations? No. SOCIAL INTERACTION - STEP 2: Does the patient need extra time in social situations, OR does s/he interact with staff, other patien ts, and family members ONLY in structured environments, OR does s/he require medication for social in teraction? No. SOCIAL INTERACTION - SCORE: 7-IND PROBLEM SOLVING: PROBLEM SOLVING - STEP 1: Does the patient need help from a person or device, or need extra time to solve complex problems such as managing a checking account or confronting interpersonal problems? No. PROBLEM SOLVING - STEP 2: Does the patient require extra time to make decisions or solve problems, OR does s/he have slight dif ficulty reading, initiating, or self-correcting in unfamiliar situations? No. PROBLEM SOLVING - SCORE: 7-IND MEMORY: MEMORY - STEP 1: Does the patient need help from a person or device, or need extra time to remember frequently encount ered people, daily routines, and executing requests? No. MEMORY - STEP 2: Does the patient have slight difficulty recognizing frequently encountered people, daily routines, or executing requests without the need for repetition or using self-initiated or environmental cues to remember? No. MEMORY - SCORE: 7-IND SIGNATURE PANEL: The following modified sections: Eating - Score, Grooming - Score, Bathing - Score, Dressing - Upper Body - Score, Dressing - Lower Body - Score, Toileting - Score, Transfers: Bed, Chair, Wheelchair - S core, Transfers: Toilet - Score, Transfers: Tub - Score, Comprehension - Score, Transfers: Shower - S core, Expression - Score, Social Interaction - Score, Problem Solving - Score, Memory - Score were [e lectronically] signed by Lynsey Singh OT on MonFeb 21 2018 16:41:18 GMT-0600 ([employer] T rafael)
--- NOTE | 2018-02-21 18:04 | PAPE ---
PATIENT: [facility] MR# [id number] REFERRING DOCTOR nica Craig EVALUATION DATE AND TIME 02/21/2018 18:02 (CYBER THREAT ANALYST) NAME JULEE KENNEY DATE OF 1955 AGE 62 PHONE SSN# [id number] GENDER female EVALUATING PHYSICIAN Dr. Mitul Collins M.D. ADMISSION DIAGNOSIS: Left Sacral Ala Insufficiency Fracture ONSET DATE 02/14/2018 SECONDARY/COMORBID DIAGNOSES TIERED: - Non-Tiered Type 2 diabetes mellitus with diabetic neuropathy, unspecified (E11.40) - N/A Acute Kidney Injury superimposed on CKD Hyperkalemia Hypertension Anxiety Depression CAD POST-ADMISSION FUNCTIONAL/MEDICAL STATUS: - Bladder Same accident frequency: Ind - No accidents in the past 7 days - Bowel Same accident frequency: Ind - No accidents in the past 7 days - Walking Same score based on distance walked: 2(5149ft) - Wheelchair Same score based on distance traveled: 0(N/A) STATUS CHANGE EVALUATION: No change in Functional or Medical Status is identified compared with Pre-Admission screening. PATIENT NEEDS CLOSE MEDICAL SUPERVISION BY A REHABILITATION PHYSICIAN FOR: Bowel and Bladder Management Coordination of Treatment Team Medical and Co-Morbidity Management DVT Management Diabetes Management Pain Management PATIENT REQUIRES 24X7 REHAB NURSING FOR MEDICAL AND FUNCTIONAL MGT. OF THE FOLLOWING DEFICITS: ADL's Ambulation Bowel and Bladder Management Communication Disease Management Medication Management Patient/Family Education Providing Safe Environment Transfers PATIENT REQUIRES INTENSIVE, COORDINATED INTERDISCIPLINARY APPROACH TO REHAB: Arranging Home Equipment/Services Discharge Planning Family Intervention/Training Oil Heaterman/Case Management LIST OF IDENTIFIED AND POTENTIAL PROBLEMS: Alteration in leisure activities Bladder, Incontinence Blood Pressure, Hypertension/hypotension Issues Bowel, Incontinence Depression, Actual or Potential Diabetes, Hyperglycemia/hypoglycemia Issues Infection, Actual or Potential Mobility Impaired Pain, Alteration in Comfort Self Care Deficit Skin Integrity, Actual or Potential Urinary Tract Infection (UTI), Actual or Potential RISK FOR COMPLICATIONS - Hypertension CVA. Hypotension. IN. TIA. - Depression Serotonin side effects. - CAD CHF. Cardiac Arrest. IN. Pain. INTERVENTIONS - Hypertension - Depression Medications. Psycho/social. Safety. - CAD 02 sats. Activity management. Medications. VS. PATIENT COULD BE AT RISK FOR COMPLICATIONS FROM ADVERSE MEDICAL CONDITIONS DUE TO HIS/HER COMORBIDITI ES AND THE RIGORS OF THE INTENSIVE REHABILLITATION PROGRAM. METHODS OR INTERVENTIONS TO AVOID COMPLIC ATIONS INCLUDE: - Deep Vein Thrombosis (DVT) Prophylaxis therapy for prevention . Sequential Compression Device (SCD). TE D Hose. - Infection Clinical staff to assess and manage the signs and symptoms of infection including fever, redness, war mth, etc. - Urinary Tract Infection - Falls Patient will be evaluated for Fall Precautions and will be placed on Fall Precautions as indicated pe r protocol. - Skin Breakdown Nursing will assess skin daily using assessment tool and will place on Skin Breakdown Precautions as indicated per protocol. - Pain Clinical staff may employ non-medication methods such as massage, distraction, decrease stimulus, etc . as needed. Clinical staff will assess patient's pain level every shift per protocol to assess and e nsure pain management effectiveness. Medications will be given and the pain level re-assessed. PRELIMINARY PLAN OF CARE: - Physical Therapy Patient needs Physical Therapy for a daily minimum of 1.5 hours at least 5 out of 7 days, to improve: Mobility, Strengthening, Transfers, Stretching, ROM, Endurance, Ability to manage stairs, Gait, and Balance. - Rehabilitation Nursing Patient requires 24x7 Rehabilitation Nursing for: Pain Issues, Identifying and preventing risk factor s, Monitoring and reporting current medical conditions, Assisting with ambulation and transfer, Tico ting with all ADL-s, Teaching patients about disease process and medications, Family teaching, Provid ing safe environment, Bowel and Bladder Issues, Skin Integrity, and Medication Management. Patient needs Oil Heaterman and/or Case Management for: Discharge Planning, Arranging Home Equipmen t or Services, and Family Interventions. - Dietary and Nutrition Services Patient needs Dietary and Nutrition Services for: Adequate Nutrition, Nutritional Supplements, and Nu tritional Education. - Occupational Therapy Patient needs Occupational Therapy for a daily minimum of 1.5 hours at least 5 out of 7 days, to impr ove Activities of Daily Living, including: Eating, Grooming, Bathing, Dressing, Toileting, Toilet Tra nsfers, Community Reintegration, Higher functional activities, Adaptive Equipment, Splinting, Househo ld Tasks, and Other activities as determined. POTENTIAL FUNCTIONAL GOALS FOR PATIENT TO ACHIEVE BY DISCHARGE: - Safety Precaution Patient will remain free from falls or injury at time of discharge. - Bed Mobility Patient will perform bed mobility at 4-Sherry level of assistance. - Transfers Patient will complete transfers from bed to chair at 4-Sherry level of assistance. - Mobility Patient will ambulate 150 ft with 4-Sherry level of assistance with RW. PATIENT REHAB POTENTIAL Expected level of measurable improvement will be of a practical value to patient's functional capacit y or adaptations to impairments Has a viable Discharge Plan Medically appropriate; condition is sufficiently stable to participate in intensive rehab program Patient is able and expected to receive 3 hours of individualized therapy daily on at least 5 of ever y 7 days Patient's prognosis for significant practical improvement within a reasonable period of time appears Good DISCHARGE PLAN: - Estimated Length of Stay (days) 14. - Consensus on plan Discharge plan has been discussed with primary caregiver. Patient/Family is in agreement with the bobby n. Primary caregiver is in agreement with the plan. - Patient/Family Goals Return home with assistance. - Planned Living Setting Upon Discharge Home, to live with Family/Relatives. CONCLUSION ON REHABILITATION NECESSITY: I have evaluated patient's pre-admission functional status and, comparing it to the patient's post-ad mission functional status now, I conclude that the pre-admission assessment was accurate. Patient's c ondition on admission supports the medical necessity of admission to IRF. It is safe to proceed with patient's therapy program. SIGNATURE PANEL: (CYBER THREAT ANALYST)
--- NOTE | 2018-02-21 18:08 | R.PN ---
ENCOUNTER DATE AND TIME: 02/21/2018 18:03 ([facility] [place]) NAME JULEE KENNEY DATE OF : 1955 DATE OF ADMISSION: 02/19/2018 15:02 ([facility] [place]) Left Sacral Ala Insufficiency FractureCHIEF COMPLAINT: Left sacral fracture SUBJECTIVE: Pt denied any depression. Pt denied any Shortness of Breath. VITAL SIGNS Temperature: 96.5 F SBP/DBP: 179/79 Pulse: 57 Resp: 20 Elevated blood pressures. Will increase Lisinopril to 5 mg twice daily. MEDICATION ALLERGIES: PENICILLIN ENVIRONMENTAL ALLERGIES: None Known - Substance Allergies None Known - Other Allergies None Known NURSING: - Shower allowing shower - Lab Results blood Sugar Check ACHS - Skin care per protocol ACTIVITIES OOB only with supervision THERAPIES: - Occupational Therapy Evaluate and Treat. - Physical Therapy Evaluate and Treat. PHYSICAL EXAM - Gen Alert and awake Lying in bed No apparent distress Oriented to: person, time, and place - Skin No breakdowns No abnormalities - Eyes No abnormalities - ENMT No abnormalities - Neck No abnormalities - CVS RRR - Chest No abnormalities - Abd + bowel sounds - GI Soft Deferred - No abnormalities - Ext No significant edema. - MSK 4/5 weakness in both lower extremities. - Neuro No focal deficits - Psych No abnormalities ASSESSMENT: Pt. is a 62 yo Right-handed white female.On 02/14/2018 she was admitted to [facility] with diagnosis Left Sacral Ala Insufficiency Fracture.Her impairment category is Orthopaedic D isorders 08 - Pelvic Fracture (08.3).Pre-morbidly, Pt. was independent/mod-I in Transfers Control, C ommunication, Social Cognition, Self-Care, Locomotion, and Sphincter Control; and she had good Sphinc ter Control.Currently, she has deficits of Safety Awareness, Transfers Control, Balance, Locomotion, Endurance, and Self-Care.Pt. is now referred to [facility] for acute in-patien t rehabilitation in order to maximize patient's functional independence in activities of daily living , strength, ROM, and mobility.- Rehab Goal Patient has realistic goal of being discharged at assistance level 6-Bushra to reside at Home with Fam roxana/Relatives. MDM/PLAN: - Physical Therapy Decreased range of motion - to improve, our physical therapists will perform initial evaluation of p t's status upon admission and devise an individualized program for increasing patient's Range of Milind on. Gait dysfunction - to improve, our physical therapists will perform initial evaluation of pt's statu s upon admission and devise an individualized program for Gait Training, and Wheel Chair mobility Inability to transfer - to improve, our physical therapists will perform initial evaluation of pt's status upon admission and devise an individualized program for Bed mobility Need for home safety evaluation - to improve, our physical therapists will perform initial evaluatio n of pt's status upon admission and devise an individualized program for Home Evaluation Need in caregiver upon discharge - to improve, our physical therapists will perform initial evaluati on of pt's status upon admission and devise an individualized program for Caregiver Training New precaution - to improve, our physical therapists will perform initial evaluation of pt's status upon admission and devise an individualized program for Patient precaution education Poor balance - to improve, our physical therapists will perform initial evaluation of pt's status up on admission and devise an individualized program for Balance Training Poor endurance - to improve, our physical therapists will perform initial evaluation of pt's status upon admission and devise an individualized program for Endurance Training Weakness - to improve, our physical therapists will perform initial evaluation of pt's status upon a dmission and devise an individualized program for Aquatic Therapy, Neuromuscular Reeducation, and Str engthening Achieving independence - to improve, our physical therapists will perform initial evaluation of pt's status upon admission and devise an individualized program for Community Reintegration Activities - Occupational Therapy ADL deficits - to improve, our occupation therapists will perform initial evaluation of pt's status upon admission and devise an individualized program for Bathing, Bed mobility, Community Reintegratio n, Cooking, Dressing, Eating, Fine Motor Skills, Grooming, Homemaking, Kitchen Mobility, Laundry, Pat ient Education, Safety Awareness, Splinting - Positioning, Transfers(Toilet, Tub, Shower), and Wheel Chair Management Need for manager critical care - to improve, our occupation therapists will perform initial evaluation of pt's status upon admission and devise an individualized program for Caregiver Training Weakness - to improve, our occupation therapists will perform initial evaluation of pt's status upon admission and devise an individualized program for Aquatic Therapy, Balance, Endurance, UE ROM, and UE strengthening - Diet Type Continue Regular - Diet - Liquid Texture Continue Regular - Tube Feed Continue N/A - Lab Results blood Sugar Check ACHS - Skin care per protocol - Diet - Solid Texture Continue Regular - Shower allowing shower FUNCTIONAL STATUS: UPDATED AT WEEKLY TEAM CONFERENCE - Bladder Same accident frequency: 7-Ind - No accidents in the past 7 days - Bowel Same accident frequency: 7-Ind - No accidents in the past 7 days - Walking Same score based on distance walked: 2(50-149ft) - Wheelchair Same score based on distance traveled: 0(N/A) FUNCTIONAL STATUS: - Self-Care A. Eating Bushra B. Grooming Ind C. Bathing sup D. Dressing - Upper sup E. Dressing - Lower sup F. Toileting Sherry - Sphincter Control G: Bladder control Ind H: Bowel control Ind - Transfers Control I. Bed/Chair/Wheelchair Sherry J. Toilet Sherry K. Tub/Shower ADNO - Locomotion L. Walk/Wheelchair (C) Sherry L. Walk/Wheelchair (W) Sherry M. Stairs ADNO - Communication N. Comprehension (B) Ind O. Expression (B) Ind - Social Cognition P. Social Interaction Ind Q. Problem Solving Ind R. Memory Ind - Endurance Fair - Balance Fair - Safety Awareness Fair CURRENT FUNC. DEFICITS: Safety Awareness, Transfers Control, Balance, Locomotion, Endurance, and Self-Care SIGNATURE PANEL: ([facility])
--- NOTE | 2018-02-21 19:17 | P.PN ---
Subjective Date of Service: 02/26/18 Subjective: No new changes, Working w/ PT Patient seen and examined at bedside in rehab. Review of Systems 10-point ROS is otherwise unremarkable Physical Examination - Vital Signs Temperature: 97.8 F Blood Pressure: 176/76 Pulse: 55 Respirations: 16 Pulse Ox (%): 97 - Physical Exam General: Alert, In no apparent distress HEENT: Atraumatic, PERRLA, EOMI Neck: Supple, JVD not distended Respiratory: Clear to auscultation bilaterally, Normal air movement Cardiovascular: Regular rate/rhythm, Normal S1 S2 Gastrointestinal: Normal bowel sounds, No tenderness Musculoskeletal: No tenderness Integumentary: No rashes Neurological: Normal speech, Normal tone, Normal affect Lymphatics: No axilla or inguinal lymphadenopathy Assessment And Plan - Plan Patient Problems: Acute kidney injury superimposed on CKD (Acute 02/15/18) N17.9, N18.9 Closed minimally displaced zone I fracture of sacrum (Acute) S32.111A Diabetes mellitus (Acute 02/15/18) E11.9 Fall (Acute 02/15/18) W19.XXXA Hyperkalemia (Acute 02/15/18) E87.5 Hypertension
--- NOTE | 2018-02-21 20:54 | RAD REPORT ---
EXAM DESCRIPTION: RAD - Hip Left 2 View - 02/21/2018 8:36 pm CLINICAL HISTORY: hip pain COMPARISON: Hip Left 2 View dated 10/27/2017 FINDINGS: Extensive hardware is present in the proximal left femur. No evidence of hardware loosenin g or infection. Sclerosis is seen about the proximal left femur fracture with some lucency still pres ent. Aortic atherosclerosis is noted.
[2018-02-21] MEDS: DOCUSATE NA/SENNA CONC 1 TAB PO SCH (21:25)
[2018-02-21] MEDS: ATORVASTATIN 20 MG TAB PO SCH (21:26)
[2018-02-21] MEDS: MAGNESIUM OXIDE 400 MG TAB PO SCH (21:26)
[2018-02-21] MEDS: GABAPENTIN 100 MG CAP PO SCH (21:26)
[2018-02-22] MEDS: METOPROLOL TAR 25 MG TAB PO SCH (05:19)
[2018-02-22] MEDS: HYDROCODONE/APAP 5/325 MG TAB PO PRN ×3 (07:07→19:26)
[2018-02-22] MEDS: INSULIN -REGULAR HUMAN 50 UNIT/0.5 ML ML SQ SCH ×4 (07:09→21:00)
[2018-02-22] MEDS: PROMOD 30 ML DOSE PO SCH ×2 (08:00→19:28)
[2018-02-22] MEDS: POLYETHYL GLY 3350 17 GM/DOSE PO PRN (08:10)
[2018-02-22] MEDS: PARoxetine HCl 10 MG TAB PO SCH (08:12)
[2018-02-22] MEDS: CLOPIDOGREL 75 MG TABLET PO SCH (08:12)
[2018-02-22] MEDS: ASPIRIN EC 81 MG TAB PO SCH (08:12)
[2018-02-22] MEDS: FE SULF/FA/VIT B COMP & C TAB PO SCH (08:12)
[2018-02-22] MEDS: GABAPENTIN 100 MG CAP PO SCH ×2 (08:13→19:28)
[2018-02-22] MEDS: MAGNESIUM OXIDE 400 MG TAB PO SCH ×2 (08:14→19:26)
[2018-02-22] MEDS: FERROUS SULFATE 325 MG TAB PO SCH (08:14)
[2018-02-22] MEDS: CYANOCOBALAMIN 1,000 MCG TAB PO SCH (08:14)
[2018-02-22] MEDS: glipiZIDE 5 MG TAB PO SCH (08:14)
[2018-02-22] MEDS: FOLIC ACID 1 MG TABLET PO SCH (08:14)
[2018-02-22] MEDS: LISINOPRIL 5 MG TAB PO SCH ×2 (08:15→19:27)
[2018-02-22] MEDS: MEMANTINE HCL 10 MG TABLET PO SCH ×2 (08:15→19:28)
--- NOTE | 2018-02-22 10:21 | FAST ---
SHIFT START DATE/TIME: 02/22/2018 07:00 (PASSENGER BARGE MASTER) SHIFT END DATE/TIME: 02/22/2018 19:00 (PASSENGER BARGE MASTER) NAME JULEE KENNEY DATE OF : 1955 DATE OF ADMISSION: 02/19/2018 15:02 (PASSENGER BARGE MASTER) PHONE: AGE: 62 SSN# [id number] GENDER: Female ENCOUNTER PHYSICIAN: Dr. Mitul Collins M.D. ADMISSION DIAGNOSIS: - Orthopaedic Disorders 08 - Pelvic Fracture (08.3) Left Sacral Ala Insufficiency Fracture. EATING: EATING - STEP 1: Does the patient require the assistance of a person or device, or need extra time when eating? Yes. EATING - STEP 2: Does the patient require the assistance of a helper? No, patient only requires an assistive device, O R s/he takes more than reasonable time to eat, OR there is a safety concern, OR s/he requires modifie d food consistency EATING - SCORE: 6-CYNDIE GROOMING: Comb/brush hair Oral care GROOMING - STEP 1: Does the patient require the assistance of a person or device, or need extra time when grooming? Yes. GROOMING - STEP 2: Does the patient require the assistance of a helper? No. The patient only requires an assistive devic e, OR takes more than reasonable time to groom, OR there is a concern for safety as the patient groom s GROOMING - SCORE: 6-CYNDIE BATHING: Activity did not occur on this shift BATHING - SCORE: 0-UNK DRESSING - UPPER BODY: Activity did not occur on this shift ARTICLES SCORE Total number of steps: 0 DRESSING - UPPER BODY - SCORE: 0-UNK DRESSING - LOWER BODY: Activity did not occur on this shift ARTICLES SCORE Total number of steps: 0 DRESSING - LOWER BODY - SCORE: 0-UNK TOILETING: TOILETING - STEP 1: Does the patient require the assistance of a person or device, or need extra time with toileting? Yes . TOILETING - STEP 2: Does the patient require the assistance of a helper? Yes. TOILETING - STEP 3: How much assistance does the patient require from the helper? Hands-on assistance from the helper TOILETING - STEP 4: Of the 3 tasks: 1) Adjusting clothing prior to use, 2) Cleansing of perineal area, 3) Adjusting clot dameon after use; How many tasks does the patient perform WITHOUT assistance of the helper? Two tasks TOILETING - SCORE: 3-MOD BLADDER MANAGEMENT: BLADDER MANAGEMENT - STEP 1: Does the patient control the bladder completely and intentionally without equipment or devices or med ications, and is always continent? No. BLADDER MANAGEMENT - STEP 2: Does the patient require the assistance of a helper? No, patient requires and independently uses an a ssistive device, such as a urinal, bedpan, bedside commode, catheter, absorbent pad, or collecting de vice BLADDER MANAGEMENT - SCORE: 6-CYNDIE BOWEL MANAGEMENT: Activity did not occur on this shift BOWEL MANAGEMENT - SCORE: 7-IND TRANSFERS: BED, CHAIR, WHEELCHAIR: TRANSFERS: BED, CHAIR, WHEELCHAIR - STEP 1: Does the patient require assistance of a person or device, or need extra time with bed, chair, or whe elchair transfers? Yes. TRANSFERS: BED, CHAIR, WHEELCHAIR - STEP 2: Does the patient require the assistance of a helper? Yes. TRANSFERS: BED, CHAIR, WHEELCHAIR - STEP 3: How much assistance does the patient require from the helper? Steadying/guiding assistance TRANSFERS: BED, CHAIR, WHEELCHAIR - SCORE: 4-MIN TRANSFERS: TOILET: TRANSFERS: TOILET - STEP 1: Does the patient require the assistance of a person or device, or need extra time with toilet transfe rs? Yes. TRANSFERS: TOILET - STEP 2: Does the patient require the assistance of a helper? Yes. TRANSFERS: TOILET - STEP 3: How much assistance does the patient require from the helper? Patient performs half or more of the tr ansferring tasks TRANSFERS: TOILET - STEP 4: Does the patient need only incidental help such as contact guard or steadying during toilet transfer? Yes. TRANSFERS: TOILET - SCORE: 4-MIN TRANSFERS: SHOWER: Activity did not occur on this shift TRANSFERS: SHOWER - SCORE: 0-UNK TRANSFERS: TUB: Activity did not occur on this shift TRANSFERS: TUB - SCORE: 0-UNK LOCOMOTION: WALK: Activity did not occur on this shift LOCOMOTION: WALK - SCORE: 0-UNK LOCOMOTION: WHEELCHAIR: Activity did not occur on this shift LOCOMOTION: WHEELCHAIR - SCORE: 0-UNK COMPREHENSION: COMPREHENSION: TYPE: Both COMPREHENSION - STEP 1: Does the patient require help from a person or device, or need extra time to understand complex and a bstract ideas (such as current events, finances, discharge planning, medical issues, relationships, e tc)? No. COMPREHENSION - STEP 2: Does the patient need extra time, require an assistive device (such as glasses for visual comprehensi on or a hearing aid for auditory comprehension) or does s/he have mild difficulty understanding compl ex and abstract information? Yes. COMPREHENSION - SCORE: 6-CYNDIE EXPRESSION EXPRESSION: TYPE: Both EXPRESSION - STEP 1: Does the patient require help from a person or device, or need extra time expressing complex and abst ract ideas (such as current events, finances, discharge planning, medical issues, relationships, etc) ? No. EXPRESSION - STEP 2: Does the patient need extra time, require an assistive device (such as augmentive communication syste m or a communication board), OR does s/he have mild difficulty expressing complex and abstract ideas (including mild dysarthria or mild word-find problems)? Yes. EXPRESSION - SCORE: 6-CYNDIE SOCIAL INTERACTION: SOCIAL INTERACTION - STEP 1: Does the patient require a helper to interact with others in social and therapeutic situations? No. SOCIAL INTERACTION - STEP 2: Does the patient need extra time in social situations, OR does s/he interact with staff, other patien ts, and family members ONLY in structured environments, OR does s/he require medication for social in teraction? Yes, patient needs extra time SOCIAL INTERACTION - SCORE: 6-CYNDIE PROBLEM SOLVING: PROBLEM SOLVING - STEP 1: Does the patient need help from a person or device, or need extra time to solve complex problems such as managing a checking account or confronting interpersonal problems? No. PROBLEM SOLVING - STEP 2: Does the patient require extra time to make decisions or solve problems, OR does s/he have slight dif ficulty reading, initiating, or self-correcting in unfamiliar situations? Yes, patient needs extra ti me. PROBLEM SOLVING - SCORE: 6-CYNDIE MEMORY: MEMORY - STEP 1: Does the patient need help from a person or device, or need extra time to remember frequently encount ered people, daily routines, and executing requests? No. MEMORY - STEP 2: Does the patient have slight difficulty recognizing frequently encountered people, daily routines, or executing requests without the need for repetition or using self-initiated or environmental cues to remember? Yes. MEMORY - SCORE: 6-CYNDIE SIGNATURE PANEL: The following modified sections: Eating - Score, Grooming - Score, Bathing - Score, Dressing - Upper Body - Score, Dressing - Lower Body - Score, Toileting - Score, Bladder Management - Score, Bowel Man agement - Score, Transfers: Bed, Chair, Wheelchair - Score, Transfers: Toilet - Score, Transfers: Sia wer - Score, Transfers: Tub - Score, Locomotion: Walk - Score, Locomotion: Wheelchair - Score, Compre hension - Score, Expression - Score, Social Interaction - Score, Problem Solving - Score, Memory - Sc ore were [electronically] signed by Moe Vallejo on MonFeb 22 2018 10:20:45 GMT-0600 (Central Standard Time)
--- NOTE | 2018-02-22 15:07 | FAST ---
ENCOUNTER DATE AND TIME: 02/22/2018 08:00 (COMMERCIAL MANAGEMENT ACCOUNTANT) NAME JULEE KENNEY DATE OF : 1955 DATE OF ADMISSION: 02/19/2018 15:02 (COMMERCIAL MANAGEMENT ACCOUNTANT) PHONE: AGE: 62 N# [id number] GENDER: Female ENCOUNTER PHYSICIAN: Dr. Mitul Collins M.D. ADMISSION DIAGNOSIS: - Orthopaedic Disorders 08 - Pelvic Fracture (08.3) Left Sacral Ala Insufficiency Fracture. EATING: Activity did not occur on this shift EATING - SCORE: 0-UNK GROOMING: Activity did not occur on this shift GROOMING - SCORE: 0-UNK BATHING: Activity did not occur on this shift BATHING - SCORE: 0-UNK DRESSING - UPPER BODY: Activity did not occur on this shift Patient is not dressing in public clothing ARTICLES SCORE Total number of steps: 0 DRESSING - UPPER BODY - SCORE: 0-UNK DRESSING - LOWER BODY: Activity did not occur on this shift Patient is not dressing in public clothing ARTICLES SCORE Total number of steps: 0 DRESSING - LOWER BODY - SCORE: 0-UNK TOILETING: Activity did not occur on this shift TOILETING - SCORE: 0-UNK BLADDER MANAGEMENT: Activity did not occur on this shift BLADDER MANAGEMENT - SCORE: 7-IND BOWEL MANAGEMENT: Activity did not occur on this shift BOWEL MANAGEMENT - SCORE: 7-IND TRANSFERS: BED, CHAIR, WHEELCHAIR: TRANSFERS: BED, CHAIR, WHEELCHAIR - STEP 1: Does the patient require assistance of a person or device, or need extra time with bed, chair, or whe elchair transfers? Yes. TRANSFERS: BED, CHAIR, WHEELCHAIR - STEP 2: Does the patient require the assistance of a helper? Yes. TRANSFERS: BED, CHAIR, WHEELCHAIR - STEP 3: How much assistance does the patient require from the helper? Only supervision TRANSFERS: BED, CHAIR, WHEELCHAIR - SCORE: 5-SUP TRANSFERS: TOILET: Activity did not occur on this shift TRANSFERS: TOILET - SCORE: 0-UNK TRANSFERS: SHOWER: Activity did not occur on this shift TRANSFERS: SHOWER - SCORE: 0-UNK TRANSFERS: TUB: Activity did not occur on this shift TRANSFERS: TUB - SCORE: 0-UNK LOCOMOTION: WALK: LOCOMOTION: WALK - STEP 1: Does the patient need help from a person or device, or need extra time to walk 150 feet? Yes. LOCOMOTION: WALK - STEP 2: How much assistance does the patient require to walk a minimum of 150 feet? Only supervision, cuing, or coaxing LOCOMOTION: WALK - SCORE: 5-SUP LOCOMOTION: WHEELCHAIR: LOCOMOTION: WHEELCHAIR - STEP 1: Does the patient need help to go 150 feet in a wheelchair? Yes. LOCOMOTION: WHEELCHAIR - STEP 2: How much assistance does the patient need from the helper? Only supervision, cuing, or coaxing LOCOMOTION: WHEELCHAIR - SCORE: 5-SUP LOCOMOTION: STAIRS: LOCOMOTION: STAIRS - STEP 1: Does the patient need help to go up and down 12 to 14 stairs? Yes. LOCOMOTION: STAIRS - STEP 2: How much assistance does the patient need from the helper to go a minimum of 12 to 14 stairs? The pat ient goes less than 12 stairs, but at least 4 stairs LOCOMOTION: STAIRS - SCORE: 2-MAX COMPREHENSION: COMPREHENSION - SCORE: 0-UNK EXPRESSION EXPRESSION - SCORE: 0-UNK SOCIAL INTERACTION: SOCIAL INTERACTION - SCORE: 0-UNK PROBLEM SOLVING: PROBLEM SOLVING - SCORE: 0-UNK MEMORY: MEMORY - SCORE: 0-UNK SIGNATURE PANEL: The following modified sections: Transfers: Bed, Chair, Wheelchair - Score, Transfers: Toilet - Score , Locomotion: Walk - Score, Locomotion: Wheelchair - Score, Locomotion: Stairs - Score were [gordon miguel] signed by Vincent Blanca PTA on MonFeb 22 2018 15:06:39 GMT-0600 (Central Standard Time)
--- NOTE | 2018-02-22 18:28 | R.PN ---
ENCOUNTER DATE AND TIME: 02/22/2018 18:25 (CONCRETE STONE FINISHER) NAME JULEE KENNEY DATE OF : 1955 DATE OF ADMISSION: 02/19/2018 15:02 (CONCRETE STONE FINISHER) Left Sacral Ala Insufficiency FractureCHIEF COMPLAINT: Left sacral fracture SUBJECTIVE: Pt denied any depression. Pt denied any Shortness of Breath. Ambulated 500' with standby assistance using a rolling walker. Ambulated 500' with standby assistance using a rolling walker. Up and down 15 steps with standby assi stance. VITAL SIGNS Temperature: 97.1 F SBP/DBP: 177/80 Pulse: 57 Resp: 16 Elevated blood pressures. Will increase Lisinopril to 10 mg twice daily. MEDICATION ALLERGIES: PENICILLIN ENVIRONMENTAL ALLERGIES: None Known - Substance Allergies None Known - Other Allergies None Known NURSING: - Shower allowing shower - Lab Results blood Sugar Check ACHS - Skin care per protocol ACTIVITIES OOB only with supervision THERAPIES: - Occupational Therapy Evaluate and Treat. - Physical Therapy Evaluate and Treat. PHYSICAL EXAM - Gen Alert and awake Lying in bed No apparent distress Oriented to: person, time, and place - Skin No breakdowns No abnormalities - Eyes No abnormalities - ENMT No abnormalities - Neck No abnormalities - CVS RRR - Chest No abnormalities - Abd + bowel sounds - GI Soft Deferred - No abnormalities - Ext No significant edema. - MSK 4/5 weakness in both lower extremities. - Neuro No focal deficits - Psych No abnormalities ASSESSMENT: Pt. is a 62 yo Right-handed white female.On 02/14/2018 she was admitted to [facility] with diagnosis Left Sacral Ala Insufficiency Fracture.Her impairment category is Orthopaedic D isorders 08 - Pelvic Fracture (08.3).Pre-morbidly, Pt. was independent/mod-I in Transfers Control, C ommunication, Social Cognition, Self-Care, Locomotion, and Sphincter Control; and she had good Sphinc ter Control.Currently, she has deficits of Safety Awareness, Transfers Control, Balance, Locomotion, Endurance, and Self-Care.Pt. is now referred to [facility] for acute in-patien t rehabilitation in order to maximize patient's functional independence in activities of daily living , strength, ROM, and mobility.- Rehab Goal Patient has realistic goal of being discharged at assistance level 6-Bushra to reside at Home with Fam roxana/Relatives. MDM/PLAN: - Physical Therapy Decreased range of motion - to improve, our physical therapists will perform initial evaluation of p t's status upon admission and devise an individualized program for increasing patient's Range of Milind on. Gait dysfunction - to improve, our physical therapists will perform initial evaluation of pt's statu s upon admission and devise an individualized program for Gait Training, and Wheel Chair mobility Inability to transfer - to improve, our physical therapists will perform initial evaluation of pt's status upon admission and devise an individualized program for Bed mobility Need for home safety evaluation - to improve, our physical therapists will perform initial evaluatio n of pt's status upon admission and devise an individualized program for Home Evaluation Need in caregiver upon discharge - to improve, our physical therapists will perform initial evaluati on of pt's status upon admission and devise an individualized program for Caregiver Training New precaution - to improve, our physical therapists will perform initial evaluation of pt's status upon admission and devise an individualized program for Patient precaution education Poor balance - to improve, our physical therapists will perform initial evaluation of pt's status up on admission and devise an individualized program for Balance Training Poor endurance - to improve, our physical therapists will perform initial evaluation of pt's status upon admission and devise an individualized program for Endurance Training Weakness - to improve, our physical therapists will perform initial evaluation of pt's status upon a dmission and devise an individualized program for Aquatic Therapy, Neuromuscular Reeducation, and Str engthening Achieving independence - to improve, our physical therapists will perform initial evaluation of pt's status upon admission and devise an individualized program for Community Reintegration Activities - Occupational Therapy ADL deficits - to improve, our occupation therapists will perform initial evaluation of pt's status upon admission and devise an individualized program for Bathing, Bed mobility, Community Reintegratio n, Cooking, Dressing, Eating, Fine Motor Skills, Grooming, Homemaking, Kitchen Mobility, Laundry, Pat ient Education, Safety Awareness, Splinting - Positioning, Transfers(Toilet, Tub, Shower), and Wheel Chair Management Need for acute care assistant - to improve, our occupation therapists will perform initial evaluation of pt's status upon admission and devise an individualized program for Caregiver Training Weakness - to improve, our occupation therapists will perform initial evaluation of pt's status upon admission and devise an individualized program for Aquatic Therapy, Balance, Endurance, UE ROM, and UE strengthening - Diet Type Continue Regular - Diet - Liquid Texture Continue Regular - Tube Feed Continue N/A - Lab Results blood Sugar Check ACHS - Skin care per protocol - Diet - Solid Texture Continue Regular - Shower allowing shower FUNCTIONAL STATUS: UPDATED AT WEEKLY TEAM CONFERENCE - Bladder Same accident frequency: 7-Ind - No accidents in the past 7 days - Bowel Same accident frequency: 7-Ind - No accidents in the past 7 days - Walking Same score based on distance walked: 2(50-149ft) - Wheelchair Same score based on distance traveled: 0(N/A) FUNCTIONAL STATUS: - Self-Care A. Eating Bushra B. Grooming Ind C. Bathing sup D. Dressing - Upper sup E. Dressing - Lower sup F. Toileting hSerry - Sphincter Control G: Bladder control Ind H: Bowel control Ind - Transfers Control I. Bed/Chair/Wheelchair Sherry J. Toilet Sherry K. Tub/Shower ADNO - Locomotion L. Walk/Wheelchair (C) Sherry L. Walk/Wheelchair (W) Sherry M. Stairs ADNO - Communication N. Comprehension (B) Ind O. Expression (B) Ind - Social Cognition P. Social Interaction Ind Q. Problem Solving Ind R. Memory Ind - Endurance Fair - Balance Fair - Safety Awareness Fair CURRENT FUNC. DEFICITS: Safety Awareness, Transfers Control, Balance, Locomotion, Endurance, and Self-Care SIGNATURE PANEL: (CONCRETE STONE FINISHER)
--- NOTE | 2018-02-22 19:06 | RAD REPORT ---
EXAM DESCRIPTION: USExtrem Venous W Compress Bil02/22/2018 6:59 pm CLINICAL HISTORY: Bilateral leg pain COMPARISON: 2014 FINDINGS: The common femoral, superficial femoral, popliteal and posterior tibial veins bilaterally are compressible and demonstrate augmentation. Doppler demonstrates good flow. IMPRESSION: No evidence of deep venous thrombosis involving either lower extremity.
[2018-02-22] MEDS: MELATONIN 3 MG TABLET PO PRN (19:26)
[2018-02-22] MEDS: DOCUSATE NA/SENNA CONC 1 TAB PO SCH (19:26)
[2018-02-22] MEDS: ATORVASTATIN 20 MG TAB PO SCH (19:26)
[2018-02-23] MEDS: METOPROLOL TAR 25 MG TAB PO SCH (05:09)
[2018-02-23 06:34] LABS: Absolute Monocytes 0.5 K/uL (0.1-1.3); Absolute Neutrophil 1.3 K/uL (1.8-8.0); Basophils % 0.9 % (0-1.3); Eosinophils % 4.6 % (0-4.4); Hematocrit 27.8 % (36.0-45.0); Lymphocytes % 34.4 % (15.3-44.8); MPV 8.5 fL (7.6-11.3); Monocytes % 17.2 % (3.3-12.3); RBC Red Blood Cell Count 2.92 M/uL (3.86-4.86)
[2018-02-23 06:55] LABS: Albumin 2.6 g/dL (3.4-5.0); Magnesium 2.3 mg/dL (1.8-2.4); Potassium 3.8 mmol/L (3.5-5.1); Prealbumin 22.3 mg/dL (20-40)
[2018-02-23] MEDS: INSULIN -REGULAR HUMAN 50 UNIT/0.5 ML ML SQ SCH ×4 (07:30→20:56)
[2018-02-23] MEDS ORDERED: HOME MED 1 EA UNK PO SCH (08:00)
[2018-02-23] MEDS: PROMOD 30 ML DOSE PO SCH ×2 (08:00→20:00)
[2018-02-23] MEDS: HYDROCODONE/APAP 5/325 MG TAB PO PRN ×3 (09:00→21:35)
[2018-02-23] MEDS: PARoxetine HCl 10 MG TAB PO SCH (09:00)
[2018-02-23] MEDS: CLOPIDOGREL 75 MG TABLET PO SCH (09:00)
[2018-02-23] MEDS: glipiZIDE 5 MG TAB PO SCH (09:00)
[2018-02-23] MEDS: GABAPENTIN 100 MG CAP PO SCH (09:01)
[2018-02-23] MEDS: CYANOCOBALAMIN 1,000 MCG TAB PO SCH (09:01)
[2018-02-23] MEDS: ASPIRIN EC 81 MG TAB PO SCH (09:01)
[2018-02-23] MEDS: MAGNESIUM OXIDE 400 MG TAB PO SCH ×2 (09:01→21:27)
[2018-02-23] MEDS: MEMANTINE HCL 10 MG TABLET PO SCH ×2 (09:01→21:27)
[2018-02-23] MEDS: FERROUS SULFATE 325 MG TAB PO SCH (09:01)
[2018-02-23] MEDS: FE SULF/FA/VIT B COMP & C TAB PO SCH (09:01)
[2018-02-23] MEDS: FOLIC ACID 1 MG TABLET PO SCH (09:01)
[2018-02-23] MEDS: LISINOPRIL 5 MG TAB PO SCH ×2 (09:02→21:28)
[2018-02-23 09:19] LABS: Blood Morphology Comment NOT SEEN (NOT SEEN); Platelet Estimate ADEQ
--- NOTE | 2018-02-23 09:31 | P.RH.PN ---
Estimated Length of Stay: 12 Expected Discharge Date: 03/02/18 Discharge Disposition Plan: Home Family Support: Yes Penitentiary Goal: Mobility, Transfers, Self Care Vital Signs: Last Vital Signs Temp 97.0 F 02/22/18 22:03 Pulse 56 02/23/18 09:02 Resp 18 02/22/18 22:03 BP 178/74 H 02/23/18 09:02 Pulse Ox 96 02/22/18 22:03 Laboratory: Laboratory Last Values WBC 3.0 K/uL (4.3-10.9) L 02/23/18 06:11 RBC 2.92 M/uL (3.86-4.86) L 02/23/18 06:11 Hgb 9.4 g/dL (12.0-15.0) L 02/23/18 06:11 Hct 27.8 % (36.0-45.0) L 02/23/18 06:11 MCV 95.3 fL (80-100) 02/23/18 06:11 MCH 32.2 pg (27.0-35.0) 02/23/18 06:11 MCHC 33.8 g/dL (32.0-36.0) 02/23/18 06:11 RDW 14.8 % (12.1-15.2) 02/23/18 06:11 Plt Count 207 K/uL (152-406) 02/23/18 06:11 MPV 8.5 fL (7.6-11.3) 02/23/18 06:11 Neutrophils % 42.9 % (41.7-73.7) 02/23/18 06:11 Lymphocytes % 34.4 % (15.3-44.8) 02/23/18 06:11 Monocytes % 17.2 % (3.3-12.3) H 02/23/18 06:11 Eosinophils % 4.6 % (0-4.4) H 02/23/18 06:11 Basophils % 0.9 % (0-1.3) 02/23/18 06:11 Absolute Neutrophils 1.3 K/uL (1.8-8.0) L 02/23/18 06:11 Segmented Neutrophils 50 % (40-80) 02/23/18 06:11 Absolute Lymphocytes 1.0 K/uL (0.7-4.9) 02/23/18 06:11 Lymphocytes 34 % (15-42) 02/23/18 06:11 Monocytes 14 % (0-10) H 02/23/18 06:11 Absolute Monocytes 0.5 K/uL (0.1-1.3) 02/23/18 06:11 Absolute Eosinophils 0.1 K/uL (0-0.5) 02/23/18 06:11 Basophils 2 % (0-1) H 02/23/18 06:11 Absolute Basophils 0.0 K/uL (0-0.5) 02/23/18 06:11 Morphology Comment Not seen (NOT SEEN) 02/23/18 06:11 Sodium 148 mmol/L (136-145) H 02/23/18 06:11 Potassium 3.8 mmol/L (3.5-5.1) 02/23/18 06:11 Chloride 116 mmol/L (98-107) H 02/23/18 06:11 Carbon Dioxide 26 mmol/L (21-32) 02/23/18 06:11 BUN 31 mg/dL (7-18) H 02/23/18 06:11 Creatinine 1.88 mg/dL (0.55-1.3) H 02/23/18 06:11 Estimated GFR 27 mL/min (=/>90) L 02/23/18 06:11 Glucose 114 mg/dL (74-106) H 02/23/18 06:11 POC Glucose 142 mg/dl (65-120) H 02/23/18 07:44 Calcium 8.6 mg/dL (8.5-10.1) 02/23/18 06:11 Magnesium 2.3 mg/dL (1.8-2.4) 02/23/18 06:11 Albumin 2.6 g/dL (3.4-5.0) L 02/23/18 06:11 Prealbumin 22.3 mg/dL (20-40) 02/23/18 06:11 Urine Color Yellow 02/20/18 00:35 Urine Appearance Clear 02/20/18 00:35 Urine pH 6.0 (5.0-7.0) 02/20/18 00:35 Ur Specific [place] 1.010 (1.005-1.030) 02/20/18 00:35 Urine Ketones Negative (NEG) 02/20/18 00:35 Urine Blood Trace (NEG) H 02/20/18 00:35 Urine Nitrite Negative (NEG) 02/20/18 00:35 Urine Bilirubin Negative (NEG) 02/20/18 00:35 Urine Urobilinogen 0.2 mg/dL (0.2-1.0) 02/20/18 00:35 Ur Leukocyte Esterase Negative (NEG) 02/20/18 00:35 Urine RBC <5 /HPF (NONE SEEN) 02/20/18 00:35 Urine WBC <5 /HPF (<5) 02/20/18 00:35 Ur Squamous Epith Cells <5 /HPF (NONE SEEN) 02/20/18 00:35 Urine Bacteria <20 /HPF (<20) 02/20/18 00:35 Urine Culture Reflexed Not needed 02/20/18 00:35 Urine Glucose 1+ (NEG) H 02/20/18 00:35 Urine Total Protein 2+ (NEG) H 02/20/18 00:35 Weight: 195 lb 11.2 oz Wound Present: No Closed Surgical Incision Present: No Negative Pressure Wound Therapy Present: No Physician Update: Labs have been reviewed and are stable. Her creatinine is increasing indicating moderate dehydration. Will increase free water intake. She is doing well overall at supervision with limitation of lower back pain. Hot packs on her back is helping. She is at standby assistance with physical therapy. Pain Issues: [place] 5/325mg Q6H PRN. Tramadol 50mg TID PRN Functional Improvement: Patient has met all short-term goals at this time and is progressing well toward long-term goals. Patient presents w/ good overall work ethic and safety awareness. Summary: Patient's care plan and foxing painter goals have been reviewed and revised as necessary. Please see the Rehabilitation Signature page for all necessary signatures.
--- NOTE | 2018-02-23 10:52 | FAST ---
SHIFT START DATE/TIME: 02/23/2018 07:00 (HOUSEKEEPER HEAD) SHIFT END DATE/TIME: 02/23/2018 19:00 (HOUSEKEEPER HEAD) NAME JULEE KENNEY DATE OF : 1955 DATE OF ADMISSION: 02/19/2018 15:02 (HOUSEKEEPER HEAD) PHONE: AGE: 62 SSN# [id number] GENDER: Female ENCOUNTER PHYSICIAN: Dr. Mitul Collins M.D. ADMISSION DIAGNOSIS: - Orthopaedic Disorders 08 - Pelvic Fracture (08.3) Left Sacral Ala Insufficiency Fracture. EATING: EATING - STEP 1: Does the patient require the assistance of a person or device, or need extra time when eating? No. EATING - SCORE: 7-IND GROOMING: Comb/brush hair Wash, rinse, and dry face Wash, rinse, and dry hands GROOMING - STEP 1: Does the patient require the assistance of a person or device, or need extra time when grooming? Yes. GROOMING - STEP 2: Does the patient require the assistance of a helper? No. The patient only requires an assistive devic e, OR takes more than reasonable time to groom, OR there is a concern for safety as the patient groom s GROOMING - SCORE: 6-CYNDIE BATHING: Activity did not occur on this shift BATHING - SCORE: 0-UNK DRESSING - UPPER BODY: Activity did not occur on this shift ARTICLES SCORE Total number of steps: 0 DRESSING - UPPER BODY - SCORE: 0-UNK DRESSING - LOWER BODY: Activity did not occur on this shift ARTICLES SCORE Total number of steps: 0 DRESSING - LOWER BODY - SCORE: 0-UNK TOILETING: TOILETING - STEP 1: Does the patient require the assistance of a person or device, or need extra time with toileting? Yes . TOILETING - STEP 2: Does the patient require the assistance of a helper? Yes. TOILETING - STEP 3: How much assistance does the patient require from the helper? Only supervision TOILETING - SCORE: 5-SUP BLADDER MANAGEMENT: BLADDER MANAGEMENT - STEP 1: Does the patient control the bladder completely and intentionally without equipment or devices or med ications, and is always continent? Yes. BLADDER MANAGEMENT - SCORE: 7-IND BLADDER MANAGEMENT - FREQUENCY OF ACCIDENTS: BLADDER MANAGEMENT(FA) - STEP 1: How many accidents has the patient had during the current shift? 0 BOWEL MANAGEMENT: BOWEL MANAGEMENT - STEP 1: Does the patient control bowels completely and intentionally without equipment devices or medications AND is always continent? Yes. BOWEL MANAGEMENT - SCORE: 7-IND BOWEL MANAGEMENT - FREQUENCY OF ACCIDENTS: BOWEL MANAGEMENT(FA) - STEP 1: How many accidents has the patient had during the current shift? 0 TRANSFERS: BED, CHAIR, WHEELCHAIR: TRANSFERS: BED, CHAIR, WHEELCHAIR - STEP 1: Does the patient require assistance of a person or device, or need extra time with bed, chair, or whe elchair transfers? Yes. TRANSFERS: BED, CHAIR, WHEELCHAIR - STEP 2: Does the patient require the assistance of a helper? Yes. TRANSFERS: BED, CHAIR, WHEELCHAIR - STEP 3: How much assistance does the patient require from the helper? Steadying/guiding assistance TRANSFERS: BED, CHAIR, WHEELCHAIR - SCORE: 4-MIN TRANSFERS: TOILET: TRANSFERS: TOILET - STEP 1: Does the patient require the assistance of a person or device, or need extra time with toilet transfe rs? Yes. TRANSFERS: TOILET - STEP 2: Does the patient require the assistance of a helper? Yes. TRANSFERS: TOILET - STEP 3: How much assistance does the patient require from the helper? Only supervision, cuing, coaxing, OR he lp to set out transfer equipment or to lock brakes and/or lift foot rests TRANSFERS: TOILET - SCORE: 5-SUP TRANSFERS: SHOWER: Activity did not occur on this shift TRANSFERS: SHOWER - SCORE: 0-UNK TRANSFERS: TUB: Activity did not occur on this shift TRANSFERS: TUB - SCORE: 0-UNK LOCOMOTION: WALK: Activity did not occur on this shift LOCOMOTION: WALK - SCORE: 0-UNK LOCOMOTION: WHEELCHAIR: Activity did not occur on this shift LOCOMOTION: WHEELCHAIR - SCORE: 0-UNK COMPREHENSION: COMPREHENSION - SCORE: 0-UNK EXPRESSION EXPRESSION - SCORE: 0-UNK SOCIAL INTERACTION: SOCIAL INTERACTION - SCORE: 0-UNK PROBLEM SOLVING: PROBLEM SOLVING - SCORE: 0-UNK MEMORY: MEMORY - SCORE: 0-UNK SIGNATURE PANEL: The following modified sections: Eating - Score, Grooming - Score, Bathing - Score, Dressing - Upper Body - Score, Dressing - Lower Body - Score, Toileting - Score, Bladder Management - Score, Bowel Man agement - Score, Transfers: Bed, Chair, Wheelchair - Score, Transfers: Toilet - Score, Transfers: Sia wer - Score, Transfers: Tub - Score, Locomotion: Walk - Score, Locomotion: Wheelchair - Score, Compre hension - Score, Expression - Score, Social Interaction - Score, Problem Solving - Score, Memory - Sc ore were [electronically] signed by Maris Tijerina CNA on MonFeb 23 2018 10:51:44 GMT-0600 ([facility] Standard Time)
[2018-02-23] MEDS: TRAMADOL HCL 50 MG TAB PO PRN (13:09)
[2018-02-23] MEDS ORDERED: FLEET ENEMA ADULT PR ONE (15:00)
--- NOTE | 2018-02-23 15:07 | FAST ---
ENCOUNTER DATE AND TIME: 02/23/2018 08:00 (PATIENT SERVICES ASSISTANT) NAME JULEE KENNEY DATE OF : 1955 DATE OF ADMISSION: 02/19/2018 15:02 (PATIENT SERVICES ASSISTANT) PHONE: AGE: 62 N# [id number] GENDER: Female ENCOUNTER PHYSICIAN: Dr. Mitul Collins M.D. ADMISSION DIAGNOSIS: - Orthopaedic Disorders 08 - Pelvic Fracture (08.3) Left Sacral Ala Insufficiency Fracture. EATING: Activity did not occur on this shift EATING - SCORE: 0-UNK GROOMING: Activity did not occur on this shift GROOMING - SCORE: 0-UNK BATHING: Activity did not occur on this shift BATHING - SCORE: 0-UNK DRESSING - UPPER BODY: Activity did not occur on this shift Patient is not dressing in public clothing ARTICLES SCORE Total number of steps: 0 DRESSING - UPPER BODY - SCORE: 0-UNK DRESSING - LOWER BODY: Activity did not occur on this shift Patient is not dressing in public clothing ARTICLES SCORE Total number of steps: 0 DRESSING - LOWER BODY - SCORE: 0-UNK TOILETING: Activity did not occur on this shift TOILETING - SCORE: 0-UNK BLADDER MANAGEMENT: Activity did not occur on this shift BLADDER MANAGEMENT - SCORE: 7-IND BOWEL MANAGEMENT: Activity did not occur on this shift BOWEL MANAGEMENT - SCORE: 7-IND TRANSFERS: BED, CHAIR, WHEELCHAIR: TRANSFERS: BED, CHAIR, WHEELCHAIR - STEP 1: Does the patient require assistance of a person or device, or need extra time with bed, chair, or whe elchair transfers? Yes. TRANSFERS: BED, CHAIR, WHEELCHAIR - STEP 2: Does the patient require the assistance of a helper? Yes. TRANSFERS: BED, CHAIR, WHEELCHAIR - STEP 3: How much assistance does the patient require from the helper? Only supervision TRANSFERS: BED, CHAIR, WHEELCHAIR - SCORE: 5-SUP TRANSFERS: TOILET: Activity did not occur on this shift TRANSFERS: TOILET - SCORE: 0-UNK TRANSFERS: SHOWER: Activity did not occur on this shift TRANSFERS: SHOWER - SCORE: 0-UNK TRANSFERS: TUB: Activity did not occur on this shift TRANSFERS: TUB - SCORE: 0-UNK LOCOMOTION: WALK: LOCOMOTION: WALK - STEP 1: Does the patient need help from a person or device, or need extra time to walk 150 feet? Yes. LOCOMOTION: WALK - STEP 2: How much assistance does the patient require to walk a minimum of 150 feet? Only supervision, cuing, or coaxing LOCOMOTION: WALK - SCORE: 5-SUP LOCOMOTION: WHEELCHAIR: LOCOMOTION: WHEELCHAIR - STEP 1: Does the patient need help to go 150 feet in a wheelchair? Yes. LOCOMOTION: WHEELCHAIR - STEP 2: How much assistance does the patient need from the helper? Only supervision, cuing, or coaxing LOCOMOTION: WHEELCHAIR - SCORE: 5-SUP LOCOMOTION: STAIRS: Activity did not occur on this shift LOCOMOTION: STAIRS - SCORE: 0-UNK COMPREHENSION: COMPREHENSION - SCORE: 0-UNK EXPRESSION EXPRESSION - SCORE: 0-UNK SOCIAL INTERACTION: SOCIAL INTERACTION - SCORE: 0-UNK PROBLEM SOLVING: PROBLEM SOLVING - SCORE: 0-UNK MEMORY: MEMORY - SCORE: 0-UNK SIGNATURE PANEL: The following modified sections: Transfers: Bed, Chair, Wheelchair - Score, Transfers: Toilet - Score , Locomotion: Walk - Score, Locomotion: Wheelchair - Score, Locomotion: Stairs - Score were [gordon miguel] signed by Kale Hollingsworth, PT on MonFeb 23 2018 15:07:07 GMT-0600 (Central Standard Time)
[2018-02-23] MEDS: GABAPENTIN 300 MG CAP PO SCH (21:27)
[2018-02-23] MEDS: ATORVASTATIN 20 MG TAB PO SCH (21:27)
[2018-02-23] MEDS: DOCUSATE NA/SENNA CONC 1 TAB PO SCH (21:28)
[2018-02-23] MEDS: MELATONIN 3 MG TABLET PO PRN (21:35)
--- NOTE | 2018-02-24 02:20 | FAST ---
SHIFT START DATE/TIME: 02/23/2018 19:00 (ENTERPRISE RESOURCE PLANNING CONSULTANT) SHIFT END DATE/TIME: 02/24/2018 07:00 ([employer] RESOURCE PLANNING CONSULTANT) NAME JULEE KENNEY DATE OF : 1955 DATE OF ADMISSION: 02/19/2018 15:02 (ENTERPRISE RESOURCE PLANNING CONSULTANT) PHONE: AGE: 62 SSN# [id number] GENDER: Female ENCOUNTER PHYSICIAN: Dr. Mitul Collins M.D. ADMISSION DIAGNOSIS: - Orthopaedic Disorders 08 - Pelvic Fracture (08.3) Left Sacral Ala Insufficiency Fracture. EATING: Activity did not occur on this shift EATING - SCORE: 0-UNK GROOMING: Activity did not occur on this shift GROOMING - SCORE: 0-UNK BATHING: Activity did not occur on this shift BATHING - SCORE: 0-UNK DRESSING - UPPER BODY: Patient is not dressing in public clothing ARTICLES SCORE Total number of steps: 0 DRESSING - UPPER BODY - SCORE: 0-UNK DRESSING - LOWER BODY: Patient is not dressing in public clothing ARTICLES SCORE Total number of steps: 0 DRESSING - LOWER BODY - SCORE: 0-UNK TOILETING: TOILETING - STEP 1: Does the patient require the assistance of a person or device, or need extra time with toileting? Yes . TOILETING - STEP 2: Does the patient require the assistance of a helper? Yes. TOILETING - STEP 3: How much assistance does the patient require from the helper? Only supervision TOILETING - SCORE: 5-SUP BLADDER MANAGEMENT: BLADDER MANAGEMENT - STEP 1: Does the patient control the bladder completely and intentionally without equipment or devices or med ications, and is always continent? Yes. BLADDER MANAGEMENT - SCORE: 7-IND BOWEL MANAGEMENT: Activity did not occur on this shift BOWEL MANAGEMENT - SCORE: 7-IND TRANSFERS: BED, CHAIR, WHEELCHAIR: TRANSFERS: BED, CHAIR, WHEELCHAIR - STEP 1: Does the patient require assistance of a person or device, or need extra time with bed, chair, or whe elchair transfers? Yes. TRANSFERS: BED, CHAIR, WHEELCHAIR - STEP 2: Does the patient require the assistance of a helper? Yes. TRANSFERS: BED, CHAIR, WHEELCHAIR - STEP 3: How much assistance does the patient require from the helper? Lifting of the legs TRANSFERS: BED, CHAIR, WHEELCHAIR - STEP 4: How many legs does the patient require the helper to lift? one leg TRANSFERS: BED, CHAIR, WHEELCHAIR - SCORE: 4-MIN TRANSFERS: TOILET: TRANSFERS: TOILET - STEP 1: Does the patient require the assistance of a person or device, or need extra time with toilet transfe rs? Yes. TRANSFERS: TOILET - STEP 2: Does the patient require the assistance of a helper? Yes. TRANSFERS: TOILET - STEP 3: How much assistance does the patient require from the helper? Only supervision, cuing, coaxing, OR he lp to set out transfer equipment or to lock brakes and/or lift foot rests TRANSFERS: TOILET - SCORE: 5-SUP TRANSFERS: SHOWER: Activity did not occur on this shift TRANSFERS: SHOWER - SCORE: 0-UNK TRANSFERS: TUB: Activity did not occur on this shift TRANSFERS: TUB - SCORE: 0-UNK LOCOMOTION: WALK: Activity did not occur on this shift LOCOMOTION: WALK - SCORE: 0-UNK LOCOMOTION: WHEELCHAIR: Activity did not occur on this shift LOCOMOTION: WHEELCHAIR - SCORE: 0-UNK COMPREHENSION: COMPREHENSION: TYPE: Both COMPREHENSION - STEP 1: Does the patient require help from a person or device, or need extra time to understand complex and a bstract ideas (such as current events, finances, discharge planning, medical issues, relationships, e tc)? No. COMPREHENSION - STEP 2: Does the patient need extra time, require an assistive device (such as glasses for visual comprehensi on or a hearing aid for auditory comprehension) or does s/he have mild difficulty understanding compl ex and abstract information? Yes. COMPREHENSION - SCORE: 6-CYNDIE EXPRESSION EXPRESSION: TYPE: Both EXPRESSION - STEP 1: Does the patient require help from a person or device, or need extra time expressing complex and abst ract ideas (such as current events, finances, discharge planning, medical issues, relationships, etc) ? No. EXPRESSION - STEP 2: Does the patient need extra time, require an assistive device (such as augmentive communication syste m or a communication board), OR does s/he have mild difficulty expressing complex and abstract ideas (including mild dysarthria or mild word-find problems)? Yes. EXPRESSION - SCORE: 6-CYNDIE SOCIAL INTERACTION: SOCIAL INTERACTION - STEP 1: Does the patient require a helper to interact with others in social and therapeutic situations? No. SOCIAL INTERACTION - STEP 2: Does the patient need extra time in social situations, OR does s/he interact with staff, other patien ts, and family members ONLY in structured environments, OR does s/he require medication for social in teraction? Yes, patient needs extra time SOCIAL INTERACTION - SCORE: 6-CYNDIE PROBLEM SOLVING: PROBLEM SOLVING - STEP 1: Does the patient need help from a person or device, or need extra time to solve complex problems such as managing a checking account or confronting interpersonal problems? No. PROBLEM SOLVING - STEP 2: Does the patient require extra time to make decisions or solve problems, OR does s/he have slight dif ficulty reading, initiating, or self-correcting in unfamiliar situations? Yes, patient needs extra ti me. PROBLEM SOLVING - SCORE: 6-CYNDIE MEMORY: MEMORY - STEP 1: Does the patient need help from a person or device, or need extra time to remember frequently encount ered people, daily routines, and executing requests? No. MEMORY - STEP 2: Does the patient have slight difficulty recognizing frequently encountered people, daily routines, or executing requests without the need for repetition or using self-initiated or environmental cues to remember? Yes. MEMORY - SCORE: 6-CYNDIE
[2018-02-24] MEDS: METOPROLOL TAR 25 MG TAB PO SCH (05:17)
[2018-02-24] MEDS: TRAMADOL HCL 50 MG TAB PO PRN ×2 (05:19→13:17)
[2018-02-24] MEDS ORDERED: cloNIDine HCl 0.1 MG TAB PO PRN (06:12)
[2018-02-24] MEDS: HYDROCODONE/APAP 5/325 MG TAB PO PRN ×2 (07:13→17:55)
[2018-02-24] MEDS ORDERED: BISACODYL 10 MG RECTAL SUPP PR PRN (07:22)
[2018-02-24] MEDS: INSULIN -REGULAR HUMAN 50 UNIT/0.5 ML ML SQ SCH ×4 (07:30→20:30)
[2018-02-24] MEDS: PROMOD 30 ML DOSE PO SCH ×2 (08:00→20:00)
[2018-02-24] MEDS: LISINOPRIL 5 MG TAB PO SCH ×2 (08:23→20:22)
[2018-02-24] MEDS: FOLIC ACID 1 MG TABLET PO SCH (08:23)
[2018-02-24] MEDS: MAGNESIUM OXIDE 400 MG TAB PO SCH ×2 (08:23→20:23)
[2018-02-24] MEDS: FE SULF/FA/VIT B COMP & C TAB PO SCH (08:24)
[2018-02-24] MEDS: CLOPIDOGREL 75 MG TABLET PO SCH (08:24)
[2018-02-24] MEDS: MEMANTINE HCL 10 MG TABLET PO SCH ×2 (08:24→20:24)
[2018-02-24] MEDS: FERROUS SULFATE 325 MG TAB PO SCH (08:24)
[2018-02-24] MEDS: CYANOCOBALAMIN 1,000 MCG TAB PO SCH (08:24)
[2018-02-24] MEDS: GABAPENTIN 300 MG CAP PO SCH ×2 (08:24→20:22)
[2018-02-24] MEDS: glipiZIDE 5 MG TAB PO SCH (08:24)
[2018-02-24] MEDS: ASPIRIN EC 81 MG TAB PO SCH (08:24)
[2018-02-24] MEDS: PARoxetine HCl 10 MG TAB PO SCH (08:25)
[2018-02-24] MEDS: XELJANZ 5 MG PO SCH (08:26)
[2018-02-24] MEDS: LACTULOSE 20 GM/30 ML UCUP PO PRN (11:35)
[2018-02-24] MEDS ORDERED: FUROSEMIDE 20 MG TABLET PO SCH (13:00)
--- NOTE | 2018-02-24 13:51 | P.PN ---
Subjective Date of Service: 02/26/18 Subjective: No new changes, Working w/ PT Review of Systems 10-point ROS is otherwise unremarkable Physical Examination - Vital Signs Temperature: 96.4 F Blood Pressure: 146/58 Pulse: 68 Respirations: 16 Pulse Ox (%): 97 - Physical Exam General: Alert, In no apparent distress HEENT: Atraumatic, PERRLA, EOMI Neck: Supple, JVD not distended Respiratory: Clear to auscultation bilaterally, Normal air movement Cardiovascular: Regular rate/rhythm, Normal S1 S2 Gastrointestinal: Normal bowel sounds, No tenderness Musculoskeletal: No tenderness Integumentary: No rashes Neurological: Normal speech, Normal tone, Normal affect Lymphatics: No axilla or inguinal lymphadenopathy Assessment And Plan - Plan Acute kidney injury superimposed on CKD (Acute 02/15/18) N17.9, N18.9 Closed minimally displaced zone I fracture of sacrum (Acute) S32.111A Diabetes mellitus (Acute 02/15/18) E11.9 Fall (Acute 02/15/18) W19.XXXA Hyperkalemia (Acute 02/15/18) E87.5 Resolved. Hypertension: Carvedilol; lasix increased to BID. Will continue to monitor and make adjustments.
--- NOTE | 2018-02-24 14:13 | FAST ---
SHIFT START DATE/TIME: 02/24/2018 07:00 (MANAGER DESKTOP) SHIFT END DATE/TIME: 02/24/2018 19:00 (MANAGER DESKTOP) NAME JULEE KENNEY DATE OF : 1955 DATE OF ADMISSION: 02/19/2018 15:02 (MANAGER DESKTOP) PHONE: AGE: 62 SSN# [id number] GENDER: Female ENCOUNTER PHYSICIAN: Dr. Mitul Collins M.D. ADMISSION DIAGNOSIS: - Orthopaedic Disorders 08 - Pelvic Fracture (08.3) Left Sacral Ala Insufficiency Fracture. EATING: EATING - STEP 1: Does the patient require the assistance of a person or device, or need extra time when eating? Yes. EATING - STEP 2: Does the patient require the assistance of a helper? No, patient only requires an assistive device, O R s/he takes more than reasonable time to eat, OR there is a safety concern, OR s/he requires modifie d food consistency EATING - SCORE: 6-CYNDIE GROOMING: Comb/brush hair Oral care Wash, rinse, and dry face Wash, rinse, and dry hands GROOMING - STEP 1: Does the patient require the assistance of a person or device, or need extra time when grooming? Yes. GROOMING - STEP 2: Does the patient require the assistance of a helper? No. The patient only requires an assistive devic e, OR takes more than reasonable time to groom, OR there is a concern for safety as the patient groom s GROOMING - SCORE: 6-CYNDIE BATHING: Activity did not occur on this shift BATHING - SCORE: 0-UNK DRESSING - UPPER BODY: Activity did not occur on this shift ARTICLES SCORE Total number of steps: 0 DRESSING - UPPER BODY - SCORE: 0-UNK DRESSING - LOWER BODY: Activity did not occur on this shift ARTICLES SCORE Total number of steps: 0 DRESSING - LOWER BODY - SCORE: 0-UNK TOILETING: TOILETING - STEP 1: Does the patient require the assistance of a person or device, or need extra time with toileting? Yes . TOILETING - STEP 2: Does the patient require the assistance of a helper? Yes. TOILETING - STEP 3: How much assistance does the patient require from the helper? Only supervision TOILETING - SCORE: 5-SUP BLADDER MANAGEMENT: BLADDER MANAGEMENT - STEP 1: Does the patient control the bladder completely and intentionally without equipment or devices or med ications, and is always continent? No. BLADDER MANAGEMENT - STEP 2: Does the patient require the assistance of a helper? Yes. BLADDER MANAGEMENT - STEP 3: How much assistance does the patient require from the helper? Only supervision, stand-by, cuing, or c oaxing BLADDER MANAGEMENT - SCORE: 5-SUP BLADDER MANAGEMENT - FREQUENCY OF ACCIDENTS: BLADDER MANAGEMENT(FA) - STEP 1: How many accidents has the patient had during the current shift? 0 BOWEL MANAGEMENT: Activity did not occur on this shift BOWEL MANAGEMENT - SCORE: 7-IND BOWEL MANAGEMENT - FREQUENCY OF ACCIDENTS: BOWEL MANAGEMENT(FA) - STEP 1: How many accidents has the patient had during the current shift? 0 TRANSFERS: BED, CHAIR, WHEELCHAIR: TRANSFERS: BED, CHAIR, WHEELCHAIR - STEP 1: Does the patient require assistance of a person or device, or need extra time with bed, chair, or whe elchair transfers? Yes. TRANSFERS: BED, CHAIR, WHEELCHAIR - STEP 2: Does the patient require the assistance of a helper? No. Patient only requires an assistive device fo r bed, chair, wheelchair transfers such as a sliding board, grab bar, or brace, OR s/he takes more th an reasonable time, OR there is a safety concern when s/he performs the transfers TRANSFERS: BED, CHAIR, WHEELCHAIR - SCORE: 6-CYNDIE TRANSFERS: TOILET: TRANSFERS: TOILET - STEP 1: Does the patient require the assistance of a person or device, or need extra time with toilet transfe rs? Yes. TRANSFERS: TOILET - STEP 2: Does the patient require the assistance of a helper? Yes. TRANSFERS: TOILET - STEP 3: How much assistance does the patient require from the helper? Only supervision, cuing, coaxing, OR he lp to set out transfer equipment or to lock brakes and/or lift foot rests TRANSFERS: TOILET - SCORE: 5-SUP TRANSFERS: SHOWER: Activity did not occur on this shift TRANSFERS: SHOWER - SCORE: 0-UNK TRANSFERS: TUB: Activity did not occur on this shift TRANSFERS: TUB - SCORE: 0-UNK LOCOMOTION: WALK: Activity did not occur on this shift LOCOMOTION: WALK - SCORE: 0-UNK LOCOMOTION: WHEELCHAIR: Activity did not occur on this shift LOCOMOTION: WHEELCHAIR - SCORE: 0-UNK COMPREHENSION: COMPREHENSION: TYPE: Both COMPREHENSION - STEP 1: Does the patient require help from a person or device, or need extra time to understand complex and a bstract ideas (such as current events, finances, discharge planning, medical issues, relationships, e tc)? No. COMPREHENSION - STEP 2: Does the patient need extra time, require an assistive device (such as glasses for visual comprehensi on or a hearing aid for auditory comprehension) or does s/he have mild difficulty understanding compl ex and abstract information? Yes. COMPREHENSION - SCORE: 6-CYNDIE EXPRESSION EXPRESSION: TYPE: Both EXPRESSION - STEP 1: Does the patient require help from a person or device, or need extra time expressing complex and abst ract ideas (such as current events, finances, discharge planning, medical issues, relationships, etc) ? No. EXPRESSION - STEP 2: Does the patient need extra time, require an assistive device (such as augmentive communication syste m or a communication board), OR does s/he have mild difficulty expressing complex and abstract ideas (including mild dysarthria or mild word-find problems)? Yes. EXPRESSION - SCORE: 6-CYNDIE SOCIAL INTERACTION: SOCIAL INTERACTION - STEP 1: Does the patient require a helper to interact with others in social and therapeutic situations? No. SOCIAL INTERACTION - STEP 2: Does the patient need extra time in social situations, OR does s/he interact with staff, other patien ts, and family members ONLY in structured environments, OR does s/he require medication for social in teraction? Yes, patient needs extra time SOCIAL INTERACTION - SCORE: 6-CYNDIE PROBLEM SOLVING: PROBLEM SOLVING - STEP 1: Does the patient need help from a person or device, or need extra time to solve complex problems such as managing a checking account or confronting interpersonal problems? No. PROBLEM SOLVING - STEP 2: Does the patient require extra time to make decisions or solve problems, OR does s/he have slight dif ficulty reading, initiating, or self-correcting in unfamiliar situations? Yes, patient needs extra ti me. PROBLEM SOLVING - SCORE: 6-CYNDIE MEMORY: MEMORY - STEP 1: Does the patient need help from a person or device, or need extra time to remember frequently encount ered people, daily routines, and executing requests? No. MEMORY - STEP 2: Does the patient have slight difficulty recognizing frequently encountered people, daily routines, or executing requests without the need for repetition or using self-initiated or environmental cues to remember? Yes. MEMORY - SCORE: 6-CYNDIE SIGNATURE PANEL: The following modified sections: Eating - Score, Grooming - Score, Bathing - Score, Dressing - Upper Body - Score, Dressing - Lower Body - Score, Toileting - Score, Bladder Management - Score, Bowel Man agement - Score, Transfers: Bed, Chair, Wheelchair - Score, Transfers: Shower - Score, Transfers: Tub - Score, Locomotion: Walk - Score, Locomotion: Wheelchair - Score, Comprehension - Score, Expression - Score, Social Interaction - Score, Problem Solving - Score, Memory - Score, Transfers: Toilet - Sc ore were [electronically] signed by Oriana CarrNMima on MonFeb 24 2018 14:12:22 GMT-0600 ([facility] [place] Standard Time)
[2018-02-24] MEDS ORDERED: HYDRALAZINE HCL 20 MG/ML VIAL IV PRN (17:35)
[2018-02-24] MEDS: CARVEDILOL 12.5 MG TAB PO SCH (17:55)
--- NOTE | 2018-02-24 18:32 | FAST ---
ENCOUNTER DATE AND TIME: 02/24/2018 08:00 (LAMP DECORATOR) NAME JULEE KENNEY DATE OF : 1955 DATE OF ADMISSION: 02/19/2018 15:02 (LAMP DECORATOR) PHONE: AGE: 62 N# [id number] GENDER: Female ENCOUNTER PHYSICIAN: Dr. Mitul Collins M.D. ADMISSION DIAGNOSIS: - Orthopaedic Disorders 08 - Pelvic Fracture (08.3) Left Sacral Ala Insufficiency Fracture. EATING: Activity did not occur on this shift EATING - SCORE: 0-UNK GROOMING: Activity did not occur on this shift GROOMING - SCORE: 0-UNK BATHING: Activity did not occur on this shift BATHING - SCORE: 0-UNK DRESSING - UPPER BODY: T-shirt/pullover shirt (four steps) ARTICLES SCORE Total number of steps: 4 DRESSING - UPPER BODY - STEP 1: Does the patient require help from a person or device, or need extra time when dressing above the [address]? Yes. DRESSING - UPPER BODY - STEP 2: Does the patient require the assistance of a helper? No. Patient only requires an assistive device, s uch as a button hook, velcro, or continuous mining machine lode miner. OR s/he takes more than reasonable time as s/he dresses the upper body. OR there is a concern for safety when s/he dresses the upper body DRESSING - UPPER BODY - SCORE: 6-CYNDIE DRESSING - LOWER BODY: Elastic waist pants (three steps) ARTICLES SCORE Total number of steps: 3 DRESSING - LOWER BODY - STEP 1: Does the patient require help from a person or device, or need extra time when dressing below the g[address] st? Yes. DRESSING - LOWER BODY - STEP 2: Does the patient require the assistance of a helper? Yes. DRESSING - LOWER BODY - STEP 3: Does the helper touch the patient while dressing? No. DRESSING - LOWER BODY - SCORE: 5-SUP TOILETING: Activity did not occur on this shift TOILETING - SCORE: 0-UNK BLADDER MANAGEMENT: Activity did not occur on this shift BLADDER MANAGEMENT - SCORE: 7-IND BOWEL MANAGEMENT: Activity did not occur on this shift BOWEL MANAGEMENT - SCORE: 7-IND TRANSFERS: BED, CHAIR, WHEELCHAIR: TRANSFERS: BED, CHAIR, WHEELCHAIR - STEP 1: Does the patient require assistance of a person or device, or need extra time with bed, chair, or whe elchair transfers? Yes. TRANSFERS: BED, CHAIR, WHEELCHAIR - STEP 2: Does the patient require the assistance of a helper? Yes. TRANSFERS: BED, CHAIR, WHEELCHAIR - STEP 3: How much assistance does the patient require from the helper? Lifting of the legs TRANSFERS: BED, CHAIR, WHEELCHAIR - STEP 4: How many legs does the patient require the helper to lift? one leg TRANSFERS: BED, CHAIR, WHEELCHAIR - SCORE: 4-MIN TRANSFERS: TOILET: Activity did not occur on this shift TRANSFERS: TOILET - SCORE: 0-UNK TRANSFERS: SHOWER: Activity did not occur on this shift TRANSFERS: SHOWER - SCORE: 0-UNK TRANSFERS: TUB: Activity did not occur on this shift TRANSFERS: TUB - SCORE: 0-UNK LOCOMOTION: WALK: Activity did not occur on this shift LOCOMOTION: WALK - SCORE: 0-UNK LOCOMOTION: WHEELCHAIR: Activity did not occur on this shift LOCOMOTION: WHEELCHAIR - SCORE: 0-UNK LOCOMOTION: STAIRS: Activity did not occur on this shift LOCOMOTION: STAIRS - SCORE: 0-UNK COMPREHENSION: COMPREHENSION: TYPE: Both COMPREHENSION - STEP 1: Does the patient require help from a person or device, or need extra time to understand complex and a bstract ideas (such as current events, finances, discharge planning, medical issues, relationships, e tc)? No. COMPREHENSION - STEP 2: Does the patient need extra time, require an assistive device (such as glasses for visual comprehensi on or a hearing aid for auditory comprehension) or does s/he have mild difficulty understanding compl ex and abstract information? Yes. COMPREHENSION - SCORE: 6-CYNDIE EXPRESSION EXPRESSION: TYPE: Vocal EXPRESSION - STEP 1: Does the patient require help from a person or device, or need extra time expressing complex and abst ract ideas (such as current events, finances, discharge planning, medical issues, relationships, etc) ? No. EXPRESSION - STEP 2: Does the patient need extra time, require an assistive device (such as augmentive communication syste m or a communication board), OR does s/he have mild difficulty expressing complex and abstract ideas (including mild dysarthria or mild word-find problems)? No. EXPRESSION - SCORE: 7-IND SOCIAL INTERACTION: SOCIAL INTERACTION - STEP 1: Does the patient require a helper to interact with others in social and therapeutic situations? No. SOCIAL INTERACTION - STEP 2: Does the patient need extra time in social situations, OR does s/he interact with staff, other patien ts, and family members ONLY in structured environments, OR does s/he require medication for social in teraction? No. SOCIAL INTERACTION - SCORE: 7-IND PROBLEM SOLVING: PROBLEM SOLVING - STEP 1: Does the patient need help from a person or device, or need extra time to solve complex problems such as managing a checking account or confronting interpersonal problems? Yes. PROBLEM SOLVING - STEP 2: Does the patient solve basic routine problems half or more of the time? Yes. PROBLEM SOLVING - STEP 3: How often does the patient need help to solve basic routine problems? Less than 10% of the time PROBLEM SOLVING - SCORE: 5-SUP MEMORY: MEMORY - STEP 1: Does the patient need help from a person or device, or need extra time to remember frequently encount ered people, daily routines, and executing requests? Yes. MEMORY - STEP 2: How often does the patient need help to remember frequently encountered people, daily routines, and e xecuting requests? Less than 10% of the time MEMORY - SCORE: 5-SUP SIGNATURE PANEL: The following modified sections: Eating - Score, Grooming - Score, Bathing - Score, Dressing - Upper Body - Score, Dressing - Lower Body - Score, Toileting - Score, Transfers: Bed, Chair, Wheelchair - S core, Transfers: Toilet - Score, Transfers: Shower - Score, Transfers: Tub - Score, Comprehension - S core, Expression - Score, Social Interaction - Score, Problem Solving - Score, Memory - Score were [e lectronically] signed by Mell Cabrera OT on Sat Feb 24 2018 18:31:47 GMT-0600 (Central Standard Ti pr)
[2018-02-24] MEDS: ATORVASTATIN 20 MG TAB PO SCH (20:22)
[2018-02-24] MEDS: HYDRALAZINE HCL 25 MG TABLET PO SCH (20:22)
[2018-02-24] MEDS: DOCUSATE NA/SENNA CONC 1 TAB PO SCH (20:23)
--- NOTE | 2018-02-24 20:24 | RAD REPORT ---
EXAM DESCRIPTION: Michelle Single View02/24/2018 7:44 pm CLINICAL HISTORY: Shortness of breath COMPARISON: February 14, 2018 FINDINGS: The lungs appear clear of acute infiltrate. The heart is mildly to moderately enlarged IMPRESSION: No acute abnormalities displayed
[2018-02-24] MEDS: MELATONIN 3 MG TABLET PO PRN (20:26)
--- NOTE | 2018-02-24 20:26 | RAD REPORT ---
EXAM DESCRIPTION: RAD - Abdomen 1 View (KUB) - 02/24/2018 7:44 pm CLINICAL HISTORY: Abdomen pain. FINDINGS: The cecum measures 10 centimeters. The remainder of the bowel gas pattern is unremarkable. A moderate amount of stool is present throughout the colon. Calcifications of pelvis probably represent phleboliths
--- NOTE | 2018-02-24 21:37 | CON ---
Date of Consultation: 02/24/2018 Reason For Consultation: Chronic kidney disease. History Of Present Illness: Ms. Jefferson is a 62-year-old female who is being seen as part of the [facility] rehabilitation service after suffering a sacral fracture. Our consultation was requested as the carmela alexander has had history of chronic kidney disease as well as having acute electrolyte abnormalities. T he patient has a past Medical history of coronary artery disease status post stent placement last mon. She has a known history of chronic kidney disease secondary to suspected diabetic nephropathy, p rotein urea. She states that she had been seen only by Dr. Quiroga here last month in the hospital in terms of renal function. Her primary care doctor at [facility]. Reviewing her labs, she d oes have a baseline creatinine of 1.8-2.2 based on review of the labs over the past 1 year. Earlier today, she has had some dyspnea and is being worked up for volume overload. Review of Systems: Patient is having some orthopnea. Denies any fevers, chills, chest pain, nausea, vomiting, or diarrh ea. Medications: Reviewed and no NSAIDs or contrast administration was noted. Past Medical History: As per HPI. Family History: Noncontributory. Physical Examination: Vital Signs: Blood pressure is 175/59, pulse 64, afebrile. General: No acute distress. Heart: Regular rate and rhythm. No murmurs, rubs, or gallops. Lungs: Decreased breath sounds at bases. Abdomen: Soft, nontender, nondistended. Extremities: With 1+ edema bilaterally. Laboratory Data: Sodium 148, potassium 3.8, chloride 116, CO2 of 26, BUN 31, creatinine 1.8, glucose 114, albumin 2.6. CBC showing hemoglobin and hematocrit 9.4 and 27.8. UA showing trace blood, but no rbc's noted on microscopy. Current Medications: Clonidine 0.1 mg every 4 hours as needed, Lasix 20 mg daily, lisinopril 5 twice daily. The remainder medications were reviewed. Impression: 1.Chronic kidney disease with mild worsening from admission creatinine, however, still within the carmela alexander's known baseline range. 2.Sacral fracture. 3.Electrolyte abnormalities. 4.Volume overload. 5.Uncontrolled hypertension. Plan: Renal function is labile. We will check the patient's x-ray and the patient would likely bene fit from diuresis. Patient is on 20 mg daily at this time that will be increased to 40 mg daily, thi s can be down titrated depending on the patient's clinical parameters. The patient's hypertension is uncontrolled and given the patient's history, would benefit from a beta-slick, so metoprolol will be changed to carvedilol equivalent dosing. If further blood pressure control is required, would rec ommend initiating hydralazine 25 mg 3 times daily. Would also use hydralazine for p.r.n. blood press ure control as opposed to clonidine and those changes will be made to avoid rebound hypertension. Avoid all NSAIDs and avoid contrast. SE/MODL Voice ID: [id number] Report ID: [id number]
--- NOTE | 2018-02-25 02:06 | FAST ---
SHIFT START DATE/TIME: 02/24/2018 19:00 (INDUSTRIAL NURSE) SHIFT END DATE/TIME: 02/25/2018 07:00 (INDUSTRIAL NURSE) NAME JULEE KENNEY DATE OF : 1955 DATE OF ADMISSION: 02/19/2018 15:02 (INDUSTRIAL NURSE) PHONE: AGE: 62 SSN# [id number] GENDER: Female ENCOUNTER PHYSICIAN: Dr. Mitul Collins M.D. ADMISSION DIAGNOSIS: - Orthopaedic Disorders 08 - Pelvic Fracture (08.3) Left Sacral Ala Insufficiency Fracture. EATING: Activity did not occur on this shift EATING - SCORE: 0-UNK GROOMING: Activity did not occur on this shift GROOMING - SCORE: 0-UNK BATHING: Activity did not occur on this shift BATHING - SCORE: 0-UNK DRESSING - UPPER BODY: Patient is not dressing in public clothing ARTICLES SCORE Total number of steps: 0 DRESSING - UPPER BODY - SCORE: 0-UNK DRESSING - LOWER BODY: Patient is not dressing in public clothing ARTICLES SCORE Total number of steps: 0 DRESSING - LOWER BODY - SCORE: 0-UNK TOILETING: TOILETING - STEP 1: Does the patient require the assistance of a person or device, or need extra time with toileting? Yes . TOILETING - STEP 2: Does the patient require the assistance of a helper? Yes. TOILETING - STEP 3: How much assistance does the patient require from the helper? Only supervision TOILETING - SCORE: 5-SUP BLADDER MANAGEMENT: BLADDER MANAGEMENT - STEP 1: Does the patient control the bladder completely and intentionally without equipment or devices or med ications, and is always continent? No. BLADDER MANAGEMENT - STEP 2: Does the patient require the assistance of a helper? Yes. BLADDER MANAGEMENT - STEP 3: How much assistance does the patient require from the helper? Only supervision, stand-by, cuing, or c oaxing BLADDER MANAGEMENT - SCORE: 5-SUP BOWEL MANAGEMENT: Activity did not occur on this shift BOWEL MANAGEMENT - SCORE: 7-IND TRANSFERS: BED, CHAIR, WHEELCHAIR: TRANSFERS: BED, CHAIR, WHEELCHAIR - STEP 1: Does the patient require assistance of a person or device, or need extra time with bed, chair, or whe elchair transfers? Yes. TRANSFERS: BED, CHAIR, WHEELCHAIR - STEP 2: Does the patient require the assistance of a helper? Yes. TRANSFERS: BED, CHAIR, WHEELCHAIR - STEP 3: How much assistance does the patient require from the helper? Lifting of the legs TRANSFERS: BED, CHAIR, WHEELCHAIR - STEP 4: How many legs does the patient require the helper to lift? one leg TRANSFERS: BED, CHAIR, WHEELCHAIR - SCORE: 4-MIN TRANSFERS: TOILET: TRANSFERS: TOILET - STEP 1: Does the patient require the assistance of a person or device, or need extra time with toilet transfe rs? Yes. TRANSFERS: TOILET - STEP 2: Does the patient require the assistance of a helper? Yes. TRANSFERS: TOILET - STEP 3: How much assistance does the patient require from the helper? Only supervision, cuing, coaxing, OR he lp to set out transfer equipment or to lock brakes and/or lift foot rests TRANSFERS: TOILET - SCORE: 5-SUP TRANSFERS: SHOWER: Activity did not occur on this shift TRANSFERS: SHOWER - SCORE: 0-UNK TRANSFERS: TUB: Activity did not occur on this shift TRANSFERS: TUB - SCORE: 0-UNK LOCOMOTION: WALK: Activity did not occur on this shift LOCOMOTION: WALK - SCORE: 0-UNK LOCOMOTION: WHEELCHAIR: Activity did not occur on this shift LOCOMOTION: WHEELCHAIR - SCORE: 0-UNK COMPREHENSION: COMPREHENSION: TYPE: Both COMPREHENSION - STEP 1: Does the patient require help from a person or device, or need extra time to understand complex and a bstract ideas (such as current events, finances, discharge planning, medical issues, relationships, e tc)? No. COMPREHENSION - STEP 2: Does the patient need extra time, require an assistive device (such as glasses for visual comprehensi on or a hearing aid for auditory comprehension) or does s/he have mild difficulty understanding compl ex and abstract information? Yes. COMPREHENSION - SCORE: 6-CYNDIE EXPRESSION EXPRESSION: TYPE: Both EXPRESSION - STEP 1: Does the patient require help from a person or device, or need extra time expressing complex and abst ract ideas (such as current events, finances, discharge planning, medical issues, relationships, etc) ? No. EXPRESSION - STEP 2: Does the patient need extra time, require an assistive device (such as augmentive communication syste m or a communication board), OR does s/he have mild difficulty expressing complex and abstract ideas (including mild dysarthria or mild word-find problems)? No. EXPRESSION - SCORE: 7-IND SOCIAL INTERACTION: SOCIAL INTERACTION - STEP 1: Does the patient require a helper to interact with others in social and therapeutic situations? No. SOCIAL INTERACTION - STEP 2: Does the patient need extra time in social situations, OR does s/he interact with staff, other patien ts, and family members ONLY in structured environments, OR does s/he require medication for social in teraction? Yes, patient needs extra time SOCIAL INTERACTION - SCORE: 6-CYNDIE PROBLEM SOLVING: PROBLEM SOLVING - STEP 1: Does the patient need help from a person or device, or need extra time to solve complex problems such as managing a checking account or confronting interpersonal problems? No. PROBLEM SOLVING - STEP 2: Does the patient require extra time to make decisions or solve problems, OR does s/he have slight dif ficulty reading, initiating, or self-correcting in unfamiliar situations? Yes, patient needs extra ti me. PROBLEM SOLVING - SCORE: 6-CYNDIE MEMORY: MEMORY - STEP 1: Does the patient need help from a person or device, or need extra time to remember frequently encount ered people, daily routines, and executing requests? No. MEMORY - STEP 2: Does the patient have slight difficulty recognizing frequently encountered people, daily routines, or executing requests without the need for repetition or using self-initiated or environmental cues to remember? Yes. MEMORY - SCORE: 6-CYNDIE SIGNATURE PANEL: The following modified sections: Eating - Score, Grooming - Score, Dressing - Upper Body - Score, Arash ssing - Lower Body - Score, Toileting - Score, Bladder Management - Score, Bowel Management - Score, Transfers: Bed, Chair, Wheelchair - Score, Transfers: Toilet - Score, Transfers: Shower - Score, Monsalve sfers: Tub - Score, Locomotion: Walk - Score, Locomotion: Wheelchair - Score, Comprehension - Score, Expression - Score, Social Interaction - Score, Problem Solving - Score, Memory - Score were [electro nically] signed by Nila Kennedy CNA on MonFeb 25 2018 01:55:14 GMT-0600 (Central Standard Time)
[2018-02-25] MEDS: CARVEDILOL 12.5 MG TAB PO SCH ×2 (05:21→16:56)
[2018-02-25] MEDS: INSULIN -REGULAR HUMAN 50 UNIT/0.5 ML ML SQ SCH ×4 (07:30→20:14)
[2018-02-25] MEDS: PROMOD 30 ML DOSE PO SCH ×2 (08:00→20:00)
[2018-02-25] MEDS: XELJANZ 5 MG PO SCH (08:08)
[2018-02-25] MEDS: LISINOPRIL 5 MG TAB PO SCH ×2 (08:09→20:12)
[2018-02-25] MEDS: LACTULOSE 20 GM/30 ML UCUP PO PRN (08:09)
[2018-02-25] MEDS: MAGNESIUM OXIDE 400 MG TAB PO SCH ×2 (08:09→20:13)
[2018-02-25] MEDS: FERROUS SULFATE 325 MG TAB PO SCH (08:09)
[2018-02-25] MEDS: POLYETHYL GLY 3350 17 GM/DOSE PO SCH (08:09)
[2018-02-25] MEDS: CLOPIDOGREL 75 MG TABLET PO SCH (08:10)
[2018-02-25] MEDS: FOLIC ACID 1 MG TABLET PO SCH (08:10)
[2018-02-25] MEDS: FE SULF/FA/VIT B COMP & C TAB PO SCH (08:10)
[2018-02-25] MEDS: ASPIRIN EC 81 MG TAB PO SCH (08:10)
[2018-02-25] MEDS: CYANOCOBALAMIN 1,000 MCG TAB PO SCH (08:10)
[2018-02-25] MEDS: FUROSEMIDE 40 MG TABLET PO SCH (08:11)
[2018-02-25] MEDS: GABAPENTIN 300 MG CAP PO SCH ×2 (08:11→20:12)
[2018-02-25] MEDS: MEMANTINE HCL 10 MG TABLET PO SCH ×2 (08:11→20:12)
[2018-02-25] MEDS: glipiZIDE 5 MG TAB PO SCH (08:11)
[2018-02-25] MEDS: PARoxetine HCl 10 MG TAB PO SCH (08:12)
--- NOTE | 2018-02-25 10:19 | FAST ---
SHIFT START DATE/TIME: 02/25/2018 07:00 (SCIENTIFIC PROCESS OPERATOR) SHIFT END DATE/TIME: 02/25/2018 19:00 (SCIENTIFIC PROCESS OPERATOR) NAME JULEE KENNEY DATE OF : 1955 DATE OF ADMISSION: 02/19/2018 15:02 (SCIENTIFIC PROCESS OPERATOR) PHONE: AGE: 62 SSN# [id number] GENDER: Female ENCOUNTER PHYSICIAN: Dr. Mitul Collins M.D. ADMISSION DIAGNOSIS: - Orthopaedic Disorders 08 - Pelvic Fracture (08.3) Left Sacral Ala Insufficiency Fracture. EATING: EATING - STEP 1: Does the patient require the assistance of a person or device, or need extra time when eating? Yes. EATING - STEP 2: Does the patient require the assistance of a helper? No, patient only requires an assistive device, O R s/he takes more than reasonable time to eat, OR there is a safety concern, OR s/he requires modifie d food consistency EATING - SCORE: 6-CYNDIE GROOMING: GROOMING - STEP 1: Does the patient require the assistance of a person or device, or need extra time when grooming? Yes. GROOMING - STEP 2: Does the patient require the assistance of a helper? No. The patient only requires an assistive devic e, OR takes more than reasonable time to groom, OR there is a concern for safety as the patient groom s GROOMING - SCORE: 6-CYNDIE BATHING: Activity did not occur on this shift BATHING - SCORE: 0-UNK DRESSING - UPPER BODY: Activity did not occur on this shift T-shirt/pullover shirt (four steps) ARTICLES SCORE Total number of steps: 4 DRESSING - UPPER BODY - SCORE: 0-UNK DRESSING - LOWER BODY: Activity did not occur on this shift Elastic waist pants (three steps) Sock - Left foot (one step) ARTICLES SCORE Total number of steps: 4 DRESSING - LOWER BODY - SCORE: 0-UNK TOILETING: TOILETING - STEP 1: Does the patient require the assistance of a person or device, or need extra time with toileting? Yes . TOILETING - STEP 2: Does the patient require the assistance of a helper? Yes. TOILETING - STEP 3: How much assistance does the patient require from the helper? Only supervision TOILETING - SCORE: 5-SUP BLADDER MANAGEMENT: BLADDER MANAGEMENT - STEP 1: Does the patient control the bladder completely and intentionally without equipment or devices or med ications, and is always continent? No. BLADDER MANAGEMENT - STEP 2: Does the patient require the assistance of a helper? Yes. BLADDER MANAGEMENT - STEP 3: How much assistance does the patient require from the helper? Only supervision, stand-by, cuing, or c oaxing BLADDER MANAGEMENT - SCORE: 5-SUP BLADDER MANAGEMENT - FREQUENCY OF ACCIDENTS: BLADDER MANAGEMENT(FA) - STEP 1: How many accidents has the patient had during the current shift? 0 BOWEL MANAGEMENT: Activity did not occur on this shift BOWEL MANAGEMENT - SCORE: 7-IND BOWEL MANAGEMENT - FREQUENCY OF ACCIDENTS: BOWEL MANAGEMENT(FA) - STEP 1: How many accidents has the patient had during the current shift? 0 TRANSFERS: BED, CHAIR, WHEELCHAIR: TRANSFERS: BED, CHAIR, WHEELCHAIR - STEP 1: Does the patient require assistance of a person or device, or need extra time with bed, chair, or whe elchair transfers? Yes. TRANSFERS: BED, CHAIR, WHEELCHAIR - STEP 2: Does the patient require the assistance of a helper? No. Patient only requires an assistive device fo r bed, chair, wheelchair transfers such as a sliding board, grab bar, or brace, OR s/he takes more th an reasonable time, OR there is a safety concern when s/he performs the transfers TRANSFERS: BED, CHAIR, WHEELCHAIR - SCORE: 6-CYNDIE TRANSFERS: TOILET: TRANSFERS: TOILET - STEP 1: Does the patient require the assistance of a person or device, or need extra time with toilet transfe rs? Yes. TRANSFERS: TOILET - STEP 2: Does the patient require the assistance of a helper? Yes. TRANSFERS: TOILET - STEP 3: How much assistance does the patient require from the helper? Patient performs half or more of the tr ansferring tasks TRANSFERS: TOILET - STEP 4: Does the patient need only incidental help such as contact guard or steadying during toilet transfer? Yes. TRANSFERS: TOILET - SCORE: 4-MIN TRANSFERS: SHOWER: Activity did not occur on this shift TRANSFERS: SHOWER - SCORE: 0-UNK TRANSFERS: TUB: Activity did not occur on this shift TRANSFERS: TUB - SCORE: 0-UNK LOCOMOTION: WALK: Activity did not occur on this shift LOCOMOTION: WALK - SCORE: 0-UNK LOCOMOTION: WHEELCHAIR: Activity did not occur on this shift LOCOMOTION: WHEELCHAIR - SCORE: 0-UNK COMPREHENSION: COMPREHENSION: TYPE: Both COMPREHENSION - STEP 1: Does the patient require help from a person or device, or need extra time to understand complex and a bstract ideas (such as current events, finances, discharge planning, medical issues, relationships, e tc)? No. COMPREHENSION - STEP 2: Does the patient need extra time, require an assistive device (such as glasses for visual comprehensi on or a hearing aid for auditory comprehension) or does s/he have mild difficulty understanding compl ex and abstract information? Yes. COMPREHENSION - SCORE: 6-CYNDIE EXPRESSION EXPRESSION: TYPE: Both EXPRESSION - STEP 1: Does the patient require help from a person or device, or need extra time expressing complex and abst ract ideas (such as current events, finances, discharge planning, medical issues, relationships, etc) ? No. EXPRESSION - STEP 2: Does the patient need extra time, require an assistive device (such as augmentive communication syste m or a communication board), OR does s/he have mild difficulty expressing complex and abstract ideas (including mild dysarthria or mild word-find problems)? Yes. EXPRESSION - SCORE: 6-CYNDIE SOCIAL INTERACTION: SOCIAL INTERACTION - STEP 1: Does the patient require a helper to interact with others in social and therapeutic situations? No. SOCIAL INTERACTION - STEP 2: Does the patient need extra time in social situations, OR does s/he interact with staff, other patien ts, and family members ONLY in structured environments, OR does s/he require medication for social in teraction? Yes, patient needs extra time SOCIAL INTERACTION - SCORE: 6-CYNDIE PROBLEM SOLVING: PROBLEM SOLVING - STEP 1: Does the patient need help from a person or device, or need extra time to solve complex problems such as managing a checking account or confronting interpersonal problems? No. PROBLEM SOLVING - STEP 2: Does the patient require extra time to make decisions or solve problems, OR does s/he have slight dif ficulty reading, initiating, or self-correcting in unfamiliar situations? Yes, patient needs extra ti me. PROBLEM SOLVING - SCORE: 6-CYNDIE MEMORY: MEMORY - STEP 1: Does the patient need help from a person or device, or need extra time to remember frequently encount ered people, daily routines, and executing requests? No. MEMORY - STEP 2: Does the patient have slight difficulty recognizing frequently encountered people, daily routines, or executing requests without the need for repetition or using self-initiated or environmental cues to remember? Yes. MEMORY - SCORE: 6-CYNDIE SIGNATURE PANEL: The following modified sections: Eating - Score, Grooming - Score, Bathing - Score, Dressing - Upper Body - Score, Dressing - Lower Body - Score, Toileting - Score, Bladder Management - Score, Bowel Man agement - Score, Transfers: Bed, Chair, Wheelchair - Score, Transfers: Toilet - Score, Transfers: Sia wer - Score, Transfers: Tub - Score, Locomotion: Walk - Score, Locomotion: Wheelchair - Score, Compre hension - Score, Expression - Score, Social Interaction - Score, Problem Solving - Score, Memory - Sc ore were [electronically] signed by Milli Lang C.N.A. on MonFeb 25 2018 10:18:36 GMT-0600 (Centra l Standard Time)
[2018-02-25] MEDS: HYDRALAZINE HCL 25 MG TABLET PO SCH ×3 (11:07→20:12)
[2018-02-25] MEDS: TRAMADOL HCL 50 MG TAB PO PRN (13:45)
[2018-02-25] MEDS: LACTULOSE 20 GM/30 ML UCUP PO SCH (20:00)
[2018-02-25] MEDS: DOCUSATE NA/SENNA CONC 1 TAB PO SCH (20:11)
[2018-02-25] MEDS: ATORVASTATIN 20 MG TAB PO SCH (20:12)
[2018-02-25] MEDS: HYDROCODONE/APAP 5/325 MG TAB PO PRN (20:13)
[2018-02-25] MEDS: MELATONIN 3 MG TABLET PO PRN (20:13)
--- NOTE | 2018-02-26 02:08 | FAST ---
SHIFT START DATE/TIME: 02/25/2018 19:00 (HOSPICE CLINICAL SUPERVISOR) SHIFT END DATE/TIME: 02/26/2018 07:00 (HOSPICE CLINICAL SUPERVISOR) NAME JULEE KENNEY DATE OF : 1955 DATE OF ADMISSION: 02/19/2018 15:02 (HOSPICE CLINICAL SUPERVISOR) PHONE: AGE: 62 SSN# [id number] GENDER: Female ENCOUNTER PHYSICIAN: Dr. Mitul Collins M.D. ADMISSION DIAGNOSIS: - Orthopaedic Disorders 08 - Pelvic Fracture (08.3) Left Sacral Ala Insufficiency Fracture. EATING: Activity did not occur on this shift EATING - SCORE: 0-UNK GROOMING: Activity did not occur on this shift GROOMING - SCORE: 0-UNK BATHING: Activity did not occur on this shift BATHING - SCORE: 0-UNK DRESSING - UPPER BODY: Patient is not dressing in public clothing ARTICLES SCORE Total number of steps: 0 DRESSING - UPPER BODY - SCORE: 0-UNK DRESSING - LOWER BODY: Patient is not dressing in public clothing ARTICLES SCORE Total number of steps: 0 DRESSING - LOWER BODY - SCORE: 0-UNK TOILETING: TOILETING - STEP 1: Does the patient require the assistance of a person or device, or need extra time with toileting? Yes . TOILETING - STEP 2: Does the patient require the assistance of a helper? Yes. TOILETING - STEP 3: How much assistance does the patient require from the helper? Hands-on assistance from the helper TOILETING - STEP 4: Of the 3 tasks: 1) Adjusting clothing prior to use, 2) Cleansing of perineal area, 3) Adjusting clot dameon after use; How many tasks does the patient perform WITHOUT assistance of the helper? Three tasks with steadying assistance from the helper TOILETING - SCORE: 4-MIN BLADDER MANAGEMENT: BLADDER MANAGEMENT - STEP 1: Does the patient control the bladder completely and intentionally without equipment or devices or med ications, and is always continent? No. BLADDER MANAGEMENT - STEP 2: Does the patient require the assistance of a helper? Yes. BLADDER MANAGEMENT - STEP 3: How much assistance does the patient require from the helper? Only supervision, stand-by, cuing, or c oaxing BLADDER MANAGEMENT - SCORE: 5-SUP BOWEL MANAGEMENT: BOWEL MANAGEMENT - STEP 1: Does the patient control bowels completely and intentionally without equipment devices or medications AND is always continent? No. BOWEL MANAGEMENT - STEP 2: Does the patient require the assistance of a helper? No, patient requires medication for control such as stool softeners, suppositories, laxatives, enemas, or OTC medications BOWEL MANAGEMENT - SCORE: 6-CYNDIE TRANSFERS: BED, CHAIR, WHEELCHAIR: TRANSFERS: BED, CHAIR, WHEELCHAIR - STEP 1: Does the patient require assistance of a person or device, or need extra time with bed, chair, or whe elchair transfers? Yes. TRANSFERS: BED, CHAIR, WHEELCHAIR - STEP 2: Does the patient require the assistance of a helper? Yes. TRANSFERS: BED, CHAIR, WHEELCHAIR - STEP 3: How much assistance does the patient require from the helper? Lifting of the legs TRANSFERS: BED, CHAIR, WHEELCHAIR - STEP 4: How many legs does the patient require the helper to lift? both legs TRANSFERS: BED, CHAIR, WHEELCHAIR - SCORE: 3-MOD TRANSFERS: TOILET: TRANSFERS: TOILET - STEP 1: Does the patient require the assistance of a person or device, or need extra time with toilet transfe rs? Yes. TRANSFERS: TOILET - STEP 2: Does the patient require the assistance of a helper? Yes. TRANSFERS: TOILET - STEP 3: How much assistance does the patient require from the helper? Patient performs half or more of the tr ansferring tasks TRANSFERS: TOILET - STEP 4: Does the patient need only incidental help such as contact guard or steadying during toilet transfer? Yes. TRANSFERS: TOILET - SCORE: 4-MIN TRANSFERS: SHOWER: Activity did not occur on this shift TRANSFERS: SHOWER - SCORE: 0-UNK TRANSFERS: TUB: Activity did not occur on this shift TRANSFERS: TUB - SCORE: 0-UNK LOCOMOTION: WALK: Activity did not occur on this shift LOCOMOTION: WALK - SCORE: 0-UNK LOCOMOTION: WHEELCHAIR: Activity did not occur on this shift LOCOMOTION: WHEELCHAIR - SCORE: 0-UNK COMPREHENSION: COMPREHENSION: TYPE: Both COMPREHENSION - STEP 1: Does the patient require help from a person or device, or need extra time to understand complex and a bstract ideas (such as current events, finances, discharge planning, medical issues, relationships, e tc)? No. COMPREHENSION - STEP 2: Does the patient need extra time, require an assistive device (such as glasses for visual comprehensi on or a hearing aid for auditory comprehension) or does s/he have mild difficulty understanding compl ex and abstract information? Yes. COMPREHENSION - SCORE: 6-CYNDIE EXPRESSION EXPRESSION: TYPE: Both EXPRESSION - STEP 1: Does the patient require help from a person or device, or need extra time expressing complex and abst ract ideas (such as current events, finances, discharge planning, medical issues, relationships, etc) ? No. EXPRESSION - STEP 2: Does the patient need extra time, require an assistive device (such as augmentive communication syste m or a communication board), OR does s/he have mild difficulty expressing complex and abstract ideas (including mild dysarthria or mild word-find problems)? No. EXPRESSION - SCORE: 7-IND SOCIAL INTERACTION: SOCIAL INTERACTION - STEP 1: Does the patient require a helper to interact with others in social and therapeutic situations? No. SOCIAL INTERACTION - STEP 2: Does the patient need extra time in social situations, OR does s/he interact with staff, other patien ts, and family members ONLY in structured environments, OR does s/he require medication for social in teraction? Yes, patient needs extra time SOCIAL INTERACTION - SCORE: 6-CYNDIE PROBLEM SOLVING: PROBLEM SOLVING - STEP 1: Does the patient need help from a person or device, or need extra time to solve complex problems such as managing a checking account or confronting interpersonal problems? No. PROBLEM SOLVING - STEP 2: Does the patient require extra time to make decisions or solve problems, OR does s/he have slight dif ficulty reading, initiating, or self-correcting in unfamiliar situations? Yes, patient needs extra ti me. PROBLEM SOLVING - SCORE: 6-CYNDIE MEMORY: MEMORY - STEP 1: Does the patient need help from a person or device, or need extra time to remember frequently encount ered people, daily routines, and executing requests? No. MEMORY - STEP 2: Does the patient have slight difficulty recognizing frequently encountered people, daily routines, or executing requests without the need for repetition or using self-initiated or environmental cues to remember? Yes. MEMORY - SCORE: 6-CYNDIE SIGNATURE PANEL: The following modified sections: Eating - Score, Grooming - Score, Dressing - Upper Body - Score, Arash ssing - Lower Body - Score, Toileting - Score, Bladder Management - Score, Bowel Management - Score, Transfers: Bed, Chair, Wheelchair - Score, Transfers: Toilet - Score, Transfers: Shower - Score, Monsalve sfers: Tub - Score, Locomotion: Walk - Score, Locomotion: Wheelchair - Score, Comprehension - Score, Expression - Score, Social Interaction - Score, Problem Solving - Score, Memory - Score were [electro nically] signed by Nila Kennedy CNA on MonFeb 26 2018 02:08:19 GMT-0600 (Central Standard Time)
[2018-02-26] MEDS: CARVEDILOL 12.5 MG TAB PO SCH ×2 (05:24→17:29)
[2018-02-26 06:39] LABS: Absolute Lymphocytes (CBC) 1.2 K/uL (0.7-4.9); Absolute Monocytes 0.4 K/uL (0.1-1.3); Absolute Neutrophil 1.5 K/uL (1.8-8.0); Basophils % 0.8 % (0-1.3); Eosinophils % 4.8 % (0-4.4); Hematocrit 25.2 % (36.0-45.0); Lymphocytes % 36.5 % (15.3-44.8); MPV 8.5 fL (7.6-11.3); Monocytes % 11.9 % (3.3-12.3); RBC Red Blood Cell Count 2.62 M/uL (3.86-4.86)
[2018-02-26 06:53] LABS: Potassium 4.9 mmol/L (3.5-5.1)
[2018-02-26] MEDS: INSULIN -REGULAR HUMAN 50 UNIT/0.5 ML ML SQ SCH ×4 (07:30→20:23)
[2018-02-26] MEDS: PROMOD 30 ML DOSE PO SCH ×2 (08:00→20:00)
[2018-02-26] MEDS: LISINOPRIL 5 MG TAB PO SCH ×2 (08:00→20:30)
[2018-02-26] MEDS: XELJANZ 5 MG PO SCH (08:33)
[2018-02-26] MEDS: LACTULOSE 20 GM/30 ML UCUP PO SCH ×2 (08:33→20:29)
[2018-02-26] MEDS: POLYETHYL GLY 3350 17 GM/DOSE PO SCH (08:33)
[2018-02-26] MEDS: glipiZIDE 5 MG TAB PO SCH (08:34)
[2018-02-26] MEDS: HYDROCODONE/APAP 5/325 MG TAB PO PRN ×2 (08:34→15:00)
[2018-02-26] MEDS: FE SULF/FA/VIT B COMP & C TAB PO SCH (08:40)
[2018-02-26] MEDS: CYANOCOBALAMIN 1,000 MCG TAB PO SCH (08:40)
[2018-02-26] MEDS: MEMANTINE HCL 10 MG TABLET PO SCH ×2 (08:40→20:28)
[2018-02-26] MEDS: PARoxetine HCl 10 MG TAB PO SCH (08:40)
[2018-02-26] MEDS: FUROSEMIDE 40 MG TABLET PO SCH (08:40)
[2018-02-26] MEDS: FOLIC ACID 1 MG TABLET PO SCH (08:40)
[2018-02-26] MEDS: MAGNESIUM OXIDE 400 MG TAB PO SCH ×2 (08:40→20:29)
[2018-02-26] MEDS: HYDRALAZINE HCL 25 MG TABLET PO SCH ×3 (08:41→20:29)
[2018-02-26] MEDS: GABAPENTIN 300 MG CAP PO SCH ×2 (08:41→20:27)
[2018-02-26] MEDS: FERROUS SULFATE 325 MG TAB PO SCH (08:41)
[2018-02-26] MEDS: CLOPIDOGREL 75 MG TABLET PO SCH (08:41)
[2018-02-26] MEDS: ASPIRIN EC 81 MG TAB PO SCH (08:41)
[2018-02-26] MEDS: TRAMADOL HCL 50 MG TAB PO PRN (10:07)
--- NOTE | 2018-02-26 10:43 | FAST ---
ENCOUNTER DATE AND TIME: 02/24/2018 08:00 (SEARCH PLANNER) NAME JULEE KENNEY DATE OF : 1955 DATE OF ADMISSION: 02/19/2018 15:02 (SEARCH PLANNER) PHONE: AGE: 62 N# [id number] GENDER: Female ENCOUNTER PHYSICIAN: Dr. Mitul Collins M.D. ADMISSION DIAGNOSIS: - Orthopaedic Disorders 08 - Pelvic Fracture (08.3) Left Sacral Ala Insufficiency Fracture. EATING: Activity did not occur on this shift EATING - SCORE: 0-UNK GROOMING: Activity did not occur on this shift GROOMING - SCORE: 0-UNK BATHING: Activity did not occur on this shift BATHING - SCORE: 0-UNK DRESSING - UPPER BODY: Activity did not occur on this shift Patient is not dressing in public clothing ARTICLES SCORE Total number of steps: 0 DRESSING - UPPER BODY - SCORE: 0-UNK DRESSING - LOWER BODY: Activity did not occur on this shift Patient is not dressing in public clothing ARTICLES SCORE Total number of steps: 0 DRESSING - LOWER BODY - SCORE: 0-UNK TOILETING: Activity did not occur on this shift TOILETING - SCORE: 0-UNK BLADDER MANAGEMENT: Activity did not occur on this shift BLADDER MANAGEMENT - SCORE: 7-IND BOWEL MANAGEMENT: Activity did not occur on this shift BOWEL MANAGEMENT - SCORE: 7-IND TRANSFERS: BED, CHAIR, WHEELCHAIR: TRANSFERS: BED, CHAIR, WHEELCHAIR - STEP 1: Does the patient require assistance of a person or device, or need extra time with bed, chair, or whe elchair transfers? Yes. TRANSFERS: BED, CHAIR, WHEELCHAIR - STEP 2: Does the patient require the assistance of a helper? Yes. TRANSFERS: BED, CHAIR, WHEELCHAIR - STEP 3: How much assistance does the patient require from the helper? Only supervision TRANSFERS: BED, CHAIR, WHEELCHAIR - SCORE: 5-SUP TRANSFERS: TOILET: Activity did not occur on this shift TRANSFERS: TOILET - SCORE: 0-UNK TRANSFERS: SHOWER: Activity did not occur on this shift TRANSFERS: SHOWER - SCORE: 0-UNK TRANSFERS: TUB: Activity did not occur on this shift TRANSFERS: TUB - SCORE: 0-UNK LOCOMOTION: WALK: LOCOMOTION: WALK - STEP 1: Does the patient need help from a person or device, or need extra time to walk 150 feet? Yes. LOCOMOTION: WALK - STEP 2: How much assistance does the patient require to walk a minimum of 150 feet? Only supervision, cuing, or coaxing LOCOMOTION: WALK - SCORE: 5-SUP LOCOMOTION: WHEELCHAIR: Activity did not occur on this shift LOCOMOTION: WHEELCHAIR - SCORE: 0-UNK LOCOMOTION: STAIRS: Activity did not occur on this shift LOCOMOTION: STAIRS - SCORE: 0-UNK COMPREHENSION: COMPREHENSION - SCORE: 0-UNK EXPRESSION EXPRESSION - SCORE: 0-UNK SOCIAL INTERACTION: SOCIAL INTERACTION - SCORE: 0-UNK PROBLEM SOLVING: PROBLEM SOLVING - SCORE: 0-UNK MEMORY: MEMORY - SCORE: 0-UNK SIGNATURE PANEL: The following modified sections: Transfers: Bed, Chair, Wheelchair - Score, Transfers: Toilet - Score , Locomotion: Walk - Score, Locomotion: Wheelchair - Score, Locomotion: Stairs - Score were [electron lamont] signed by Kale Hollingsworth PT on MonFeb 26 2018 10:42:32 GMT-0600 (Central Standard Time)
--- NOTE | 2018-02-26 11:21 | FAST ---
SHIFT START DATE/TIME: 02/26/2018 07:00 (LUMBER CUTTER) SHIFT END DATE/TIME: 02/26/2018 19:00 (LUMBER CUTTER) NAME JULEE KENNEY DATE OF : 1955 DATE OF ADMISSION: 02/19/2018 15:02 (LUMBER CUTTER) PHONE: AGE: 62 SSN# [id number] GENDER: Female ENCOUNTER PHYSICIAN: Dr. Mitul Collins M.D. ADMISSION DIAGNOSIS: - Orthopaedic Disorders 08 - Pelvic Fracture (08.3) Left Sacral Ala Insufficiency Fracture. EATING: EATING - STEP 1: Does the patient require the assistance of a person or device, or need extra time when eating? Yes. EATING - STEP 2: Does the patient require the assistance of a helper? Yes. EATING - STEP 3: Does the patient perform half or more of the eating tasks? Yes. EATING - STEP 4: Does the patient need only supervision, cuing, coaxing OR help to apply an orthosis OR help to cut fo od, open containers, pour liquids, or butter bread? Yes. EATING - SCORE: 5-SUP GROOMING: Comb/brush hair Oral care GROOMING - STEP 1: Does the patient require the assistance of a person or device, or need extra time when grooming? Yes. GROOMING - STEP 2: Does the patient require the assistance of a helper? Yes. GROOMING - STEP 3: How much assistance does the patient require from the helper? Only prior equipment preparation/set up from the helper GROOMING - SCORE: 5-SUP BATHING: Activity did not occur on this shift BATHING - SCORE: 0-UNK DRESSING - UPPER BODY: Activity did not occur on this shift ARTICLES SCORE Total number of steps: 0 DRESSING - UPPER BODY - SCORE: 0-UNK DRESSING - LOWER BODY: Activity did not occur on this shift ARTICLES SCORE Total number of steps: 0 DRESSING - LOWER BODY - SCORE: 0-UNK TOILETING: TOILETING - STEP 1: Does the patient require the assistance of a person or device, or need extra time with toileting? Yes . TOILETING - STEP 2: Does the patient require the assistance of a helper? Yes. TOILETING - STEP 3: How much assistance does the patient require from the helper? Hands-on assistance from the helper TOILETING - STEP 4: Of the 3 tasks: 1) Adjusting clothing prior to use, 2) Cleansing of perineal area, 3) Adjusting clot dameon after use; How many tasks does the patient perform WITHOUT assistance of the helper? Three tasks with steadying assistance from the helper TOILETING - SCORE: 4-MIN BLADDER MANAGEMENT: BLADDER MANAGEMENT - STEP 1: Does the patient control the bladder completely and intentionally without equipment or devices or med ications, and is always continent? No. BLADDER MANAGEMENT - STEP 2: Does the patient require the assistance of a helper? No, patient requires and independently uses an a ssistive device, such as a urinal, bedpan, bedside commode, catheter, absorbent pad, or collecting de vice BLADDER MANAGEMENT - SCORE: 6-CYNDIE BOWEL MANAGEMENT: Activity did not occur on this shift BOWEL MANAGEMENT - SCORE: 7-IND TRANSFERS: BED, CHAIR, WHEELCHAIR: TRANSFERS: BED, CHAIR, WHEELCHAIR - STEP 1: Does the patient require assistance of a person or device, or need extra time with bed, chair, or whe elchair transfers? Yes. TRANSFERS: BED, CHAIR, WHEELCHAIR - STEP 2: Does the patient require the assistance of a helper? Yes. TRANSFERS: BED, CHAIR, WHEELCHAIR - STEP 3: How much assistance does the patient require from the helper? Steadying/guiding assistance TRANSFERS: BED, CHAIR, WHEELCHAIR - SCORE: 4-MIN TRANSFERS: TOILET: TRANSFERS: TOILET - STEP 1: Does the patient require the assistance of a person or device, or need extra time with toilet transfe rs? Yes. TRANSFERS: TOILET - STEP 2: Does the patient require the assistance of a helper? Yes. TRANSFERS: TOILET - STEP 3: How much assistance does the patient require from the helper? Patient performs half or more of the tr ansferring tasks TRANSFERS: TOILET - STEP 4: Does the patient need only incidental help such as contact guard or steadying during toilet transfer? Yes. TRANSFERS: TOILET - SCORE: 4-MIN TRANSFERS: SHOWER: Activity did not occur on this shift TRANSFERS: SHOWER - SCORE: 0-UNK TRANSFERS: TUB: Activity did not occur on this shift TRANSFERS: TUB - SCORE: 0-UNK LOCOMOTION: WALK: Activity did not occur on this shift LOCOMOTION: WALK - SCORE: 0-UNK LOCOMOTION: WHEELCHAIR: Activity did not occur on this shift LOCOMOTION: WHEELCHAIR - SCORE: 0-UNK COMPREHENSION: COMPREHENSION: TYPE: Both COMPREHENSION - STEP 1: Does the patient require help from a person or device, or need extra time to understand complex and a bstract ideas (such as current events, finances, discharge planning, medical issues, relationships, e tc)? No. COMPREHENSION - STEP 2: Does the patient need extra time, require an assistive device (such as glasses for visual comprehensi on or a hearing aid for auditory comprehension) or does s/he have mild difficulty understanding compl ex and abstract information? Yes. COMPREHENSION - SCORE: 6-CYNDIE EXPRESSION EXPRESSION: TYPE: Both EXPRESSION - STEP 1: Does the patient require help from a person or device, or need extra time expressing complex and abst ract ideas (such as current events, finances, discharge planning, medical issues, relationships, etc) ? No. EXPRESSION - STEP 2: Does the patient need extra time, require an assistive device (such as augmentive communication syste m or a communication board), OR does s/he have mild difficulty expressing complex and abstract ideas (including mild dysarthria or mild word-find problems)? Yes. EXPRESSION - SCORE: 6-CYNDIE SOCIAL INTERACTION: SOCIAL INTERACTION - STEP 1: Does the patient require a helper to interact with others in social and therapeutic situations? No. SOCIAL INTERACTION - STEP 2: Does the patient need extra time in social situations, OR does s/he interact with staff, other patien ts, and family members ONLY in structured environments, OR does s/he require medication for social in teraction? Yes, patient needs extra time SOCIAL INTERACTION - SCORE: 6-CYNDIE PROBLEM SOLVING: PROBLEM SOLVING - STEP 1: Does the patient need help from a person or device, or need extra time to solve complex problems such as managing a checking account or confronting interpersonal problems? No. PROBLEM SOLVING - STEP 2: Does the patient require extra time to make decisions or solve problems, OR does s/he have slight dif ficulty reading, initiating, or self-correcting in unfamiliar situations? Yes, patient needs extra ti me. PROBLEM SOLVING - SCORE: 6-CYNDIE MEMORY: MEMORY - STEP 1: Does the patient need help from a person or device, or need extra time to remember frequently encount ered people, daily routines, and executing requests? No. MEMORY - STEP 2: Does the patient have slight difficulty recognizing frequently encountered people, daily routines, or executing requests without the need for repetition or using self-initiated or environmental cues to remember? Yes. MEMORY - SCORE: 6-CYNDIE SIGNATURE PANEL: The following modified sections: Eating - Score, Grooming - Score, Bathing - Score, Dressing - Upper Body - Score, Dressing - Lower Body - Score, Toileting - Score, Bladder Management - Score, Bowel Man agement - Score, Transfers: Bed, Chair, Wheelchair - Score, Transfers: Toilet - Score, Transfers: Sia wer - Score, Transfers: Tub - Score, Locomotion: Walk - Score, Locomotion: Wheelchair - Score, Compre hension - Score, Expression - Score, Social Interaction - Score, Problem Solving - Score, Memory - Sc ore were [electronically] signed by Moe Vallejo on MonFeb 26 2018 11:20:32 GMT-0600 (Central Standard Time)
--- NOTE | 2018-02-26 13:51 | FAST ---
ENCOUNTER DATE AND TIME: 02/26/2018 08:00 (CHARGE MANAGER) NAME JULEE KENNEY DATE OF : 1955 DATE OF ADMISSION: 02/19/2018 15:02 (CHARGE MANAGER) PHONE: AGE: 62 N# [id number] GENDER: Female ENCOUNTER PHYSICIAN: Dr. Mitul Collins M.D. ADMISSION DIAGNOSIS: - Orthopaedic Disorders 08 - Pelvic Fracture (08.3) Left Sacral Ala Insufficiency Fracture. EATING: Activity did not occur on this shift EATING - SCORE: 0-UNK GROOMING: Comb/brush hair Wash, rinse, and dry face Wash, rinse, and dry hands GROOMING - STEP 1: Does the patient require the assistance of a person or device, or need extra time when grooming? No. GROOMING - SCORE: 7-IND BATHING: Abdomen Buttocks Chest Left arm Left lower leg and foot Left upper leg Perineal area Right arm Right lower leg and foot Right upper leg BATHING - STEP 1: Does the patient require the assistance of a person or device, or need extra time when bathing? Yes. BATHING - STEP 2: Does the patient require the assistance of a helper? Yes. BATHING - STEP 3: How much assistance does the patient require from the helper? Only supervision, cuing, coaxing, instr uctions, encouragement BATHING - SCORE: 5-SUP DRESSING - UPPER BODY: T-shirt/pullover shirt (four steps) ARTICLES SCORE Total number of steps: 4 DRESSING - UPPER BODY - STEP 1: Does the patient require help from a person or device, or need extra time when dressing above the [address] st? Yes. DRESSING - UPPER BODY - STEP 2: Does the patient require the assistance of a helper? Yes. DRESSING - UPPER BODY - STEP 3: Does the helper touch the patient while dressing? No. DRESSING - UPPER BODY - SCORE: 5-SUP DRESSING - LOWER BODY: Elastic waist pants (three steps) Sock - Left foot (one step) Sock - Right foot (one step) Tied or buckled shoe - Left foot (two steps) Tied or buckled shoe - Right foot (two steps) Underwear (three steps) ARTICLES SCORE Total number of steps: 12 DRESSING - LOWER BODY - STEP 1: Does the patient require help from a person or device, or need extra time when dressing below the [address]? Yes. DRESSING - LOWER BODY - STEP 2: Does the patient require the assistance of a helper? Yes. DRESSING - LOWER BODY - STEP 3: Does the helper touch the patient while dressing? Yes. DRESSING - LOWER BODY - STEP 4: How many of the total steps does the patient complete on his/her own? 6 DRESSING - LOWER BODY - SCORE: 3-MOD TOILETING: Activity did not occur on this shift TOILETING - SCORE: 0-UNK BLADDER MANAGEMENT: Activity did not occur on this shift BLADDER MANAGEMENT - SCORE: 7-IND BOWEL MANAGEMENT: Activity did not occur on this shift BOWEL MANAGEMENT - SCORE: 7-IND TRANSFERS: BED, CHAIR, WHEELCHAIR: Activity did not occur on this shift TRANSFERS: BED, CHAIR, WHEELCHAIR - SCORE: 0-UNK TRANSFERS: TOILET: Activity did not occur on this shift TRANSFERS: TOILET - SCORE: 0-UNK TRANSFERS: SHOWER: Activity did not occur on this shift TRANSFERS: SHOWER - SCORE: 0-UNK TRANSFERS: TUB: TRANSFERS: TUB - STEP 1: Does the patient require the assistance of a person or device, or need extra time with tub transfers? Yes. TRANSFERS: TUB - STEP 2: Does the patient require the assistance of a helper? Yes. TRANSFERS: TUB - STEP 3: How much assistance does the patient require from the helper? Only supervision, cuing, coaxing, or he lp to set out transfer equipment or to lock brakes and/or lift foot rests TRANSFERS: TUB - SCORE: 5-SUP LOCOMOTION: WALK: Activity did not occur on this shift LOCOMOTION: WALK - SCORE: 0-UNK LOCOMOTION: WHEELCHAIR: Activity did not occur on this shift LOCOMOTION: WHEELCHAIR - SCORE: 0-UNK LOCOMOTION: STAIRS: Activity did not occur on this shift LOCOMOTION: STAIRS - SCORE: 0-UNK COMPREHENSION: COMPREHENSION: TYPE: Visual COMPREHENSION - STEP 1: Does the patient require help from a person or device, or need extra time to understand complex and a bstract ideas (such as current events, finances, discharge planning, medical issues, relationships, e tc)? No. COMPREHENSION - STEP 2: Does the patient need extra time, require an assistive device (such as glasses for visual comprehensi on or a hearing aid for auditory comprehension) or does s/he have mild difficulty understanding compl ex and abstract information? Yes. COMPREHENSION - SCORE: 6-CYNDIE EXPRESSION EXPRESSION: TYPE: Non-Vocal EXPRESSION - STEP 1: Does the patient require help from a person or device, or need extra time expressing complex and abst ract ideas (such as current events, finances, discharge planning, medical issues, relationships, etc) ? No. EXPRESSION - STEP 2: Does the patient need extra time, require an assistive device (such as augmentive communication syste m or a communication board), OR does s/he have mild difficulty expressing complex and abstract ideas (including mild dysarthria or mild word-find problems)? No. EXPRESSION - SCORE: 7-IND SOCIAL INTERACTION: SOCIAL INTERACTION - STEP 1: Does the patient require a helper to interact with others in social and therapeutic situations? No. SOCIAL INTERACTION - STEP 2: Does the patient need extra time in social situations, OR does s/he interact with staff, other patien ts, and family members ONLY in structured environments, OR does s/he require medication for social in teraction? No. SOCIAL INTERACTION - SCORE: 7-IND PROBLEM SOLVING: PROBLEM SOLVING - STEP 1: Does the patient need help from a person or device, or need extra time to solve complex problems such as managing a checking account or confronting interpersonal problems? No. PROBLEM SOLVING - STEP 2: Does the patient require extra time to make decisions or solve problems, OR does s/he have slight dif ficulty reading, initiating, or self-correcting in unfamiliar situations? No. PROBLEM SOLVING - SCORE: 7-IND MEMORY: MEMORY - STEP 1: Does the patient need help from a person or device, or need extra time to remember frequently encount ered people, daily routines, and executing requests? No. MEMORY - STEP 2: Does the patient have slight difficulty recognizing frequently encountered people, daily routines, or executing requests without the need for repetition or using self-initiated or environmental cues to remember? No. MEMORY - SCORE: 7-IND SIGNATURE PANEL: The following modified sections: Eating - Score, Grooming - Score, Bathing - Score, Dressing - Upper Body - Score, Dressing - Lower Body - Score, Toileting - Score, Transfers: Bed, Chair, Wheelchair - S core, Transfers: Toilet - Score, Transfers: Shower - Score, Transfers: Tub - Score, Comprehension - S core, Expression - Score, Social Interaction - Score, Problem Solving - Score, Memory - Score were [e lectronically] signed by CIRO Gentile on MonFeb 26 2018 13:50:52 GMT-0600 ([address] [place] [address] Time)
[2018-02-26] MEDS: ATORVASTATIN 20 MG TAB PO SCH (20:29)
[2018-02-26] MEDS: DOCUSATE NA/SENNA CONC 1 TAB PO SCH (20:29)
--- NOTE | 2018-02-26 22:19 | R.PN ---
ENCOUNTER DATE AND TIME: 02/26/2018 22:12 (SPRINKLER WORKER) NAME JULEE KENNEY DATE OF : 1955 DATE OF ADMISSION: 02/19/2018 15:02 (SPRINKLER WORKER) Left Sacral Ala Insufficiency FractureCHIEF COMPLAINT: Left sacral fracture SUBJECTIVE: Pt denied any depression. Pt denied any Shortness of Breath. Ambulated 300' with standby assistance using a rolling walker. Self-propelled wheelchair 250' with st andby assistance. Up and down 5 steps with contact guard assistance. Ambulated 500' with standby assistance using a rolling walker. Up and down 15 steps with standby assi stance. VITAL SIGNS Temperature: 97.8 F SBP/DBP: 146/68 Pulse: 78 Resp: 16 Elevated blood pressures. Will increase Lisinopril to 10 mg twice daily. MEDICATION ALLERGIES: PENICILLIN ENVIRONMENTAL ALLERGIES: None Known - Substance Allergies None Known - Other Allergies None Known NURSING: - Shower allowing shower - Lab Results blood Sugar Check ACHS - Skin care per protocol ACTIVITIES OOB only with supervision THERAPIES: - Occupational Therapy Evaluate and Treat. - Physical Therapy Evaluate and Treat. PHYSICAL EXAM - Gen Alert and awake Lying in bed No apparent distress Oriented to: person, time, and place - Skin No breakdowns No abnormalities - Eyes No abnormalities - ENMT No abnormalities - Neck No abnormalities - CVS RRR - Chest No abnormalities - Abd + bowel sounds - GI Soft Deferred - No abnormalities - Ext No significant edema. - MSK 4/5 weakness in both lower extremities. - Neuro No focal deficits - Psych No abnormalities ASSESSMENT: Pt. is a 62 yo Right-handed white female.On 02/14/2018 she was admitted to [facility] [place] with diagnosis Left Sacral Ala Insufficiency Fracture.Her impairment category is Orthopaedic D isorders 08 - Pelvic Fracture (08.3).Pre-morbidly, Pt. was independent/mod-I in Transfers Control, C ommunication, Social Cognition, Self-Care, Locomotion, and Sphincter Control; and she had good Sphinc ter Control.Currently, she has deficits of Safety Awareness, Transfers Control, Balance, Locomotion, Endurance, and Self-Care.Pt. is now referred to [facility] for acute in-patien t rehabilitation in order to maximize patient's functional independence in activities of daily living , strength, ROM, and mobility.- Rehab Goal Patient has realistic goal of being discharged at assistance level 6-Bushra to reside at Home with Fam roxana/Relatives. MDM/PLAN: - Physical Therapy Decreased range of motion - to improve, our physical therapists will perform initial evaluation of p t's status upon admission and devise an individualized program for increasing patient's Range of Milind on. Gait dysfunction - to improve, our physical therapists will perform initial evaluation of pt's statu s upon admission and devise an individualized program for Gait Training, and Wheel Chair mobility Inability to transfer - to improve, our physical therapists will perform initial evaluation of pt's status upon admission and devise an individualized program for Bed mobility Need for home safety evaluation - to improve, our physical therapists will perform initial evaluatio n of pt's status upon admission and devise an individualized program for Home Evaluation Need in caregiver upon discharge - to improve, our physical therapists will perform initial evaluati on of pt's status upon admission and devise an individualized program for Caregiver Training New precaution - to improve, our physical therapists will perform initial evaluation of pt's status upon admission and devise an individualized program for Patient precaution education Poor balance - to improve, our physical therapists will perform initial evaluation of pt's status up on admission and devise an individualized program for Balance Training Poor endurance - to improve, our physical therapists will perform initial evaluation of pt's status upon admission and devise an individualized program for Endurance Training Weakness - to improve, our physical therapists will perform initial evaluation of pt's status upon a dmission and devise an individualized program for Aquatic Therapy, Neuromuscular Reeducation, and Str engthening Achieving independence - to improve, our physical therapists will perform initial evaluation of pt's status upon admission and devise an individualized program for Community Reintegration Activities - Occupational Therapy ADL deficits - to improve, our occupation therapists will perform initial evaluation of pt's status upon admission and devise an individualized program for Bathing, Bed mobility, Community Reintegratio n, Cooking, Dressing, Eating, Fine Motor Skills, Grooming, Homemaking, Kitchen Mobility, Laundry, Pat ient Education, Safety Awareness, Splinting - Positioning, Transfers(Toilet, Tub, Shower), and Wheel Chair Management Need for daycare director - to improve, our occupation therapists will perform initial evaluation of pt's status upon admission and devise an individualized program for Caregiver Training Weakness - to improve, our occupation therapists will perform initial evaluation of pt's status upon admission and devise an individualized program for Aquatic Therapy, Balance, Endurance, UE ROM, and UE strengthening - Diet Type Continue Regular - Diet - Liquid Texture Continue Regular - Tube Feed Continue N/A - Lab Results blood Sugar Check ACHS - Skin care per protocol - Diet - Solid Texture Continue Regular - Shower allowing shower FUNCTIONAL STATUS: UPDATED AT WEEKLY TEAM CONFERENCE - Bladder Same accident frequency: 7-Ind - No accidents in the past 7 days - Bowel Same accident frequency: 7-Ind - No accidents in the past 7 days - Walking Same score based on distance walked: 2(50-149ft) - Wheelchair Same score based on distance traveled: 0(N/A) FUNCTIONAL STATUS: - Self-Care A. Eating Bushra B. Grooming Ind C. Bathing sup D. Dressing - Upper sup E. Dressing - Lower sup F. Toileting Sherry - Sphincter Control G: Bladder control Ind H: Bowel control Ind - Transfers Control I. Bed/Chair/Wheelchair Sherry J. Toilet Sherry K. Tub/Shower ADNO - Locomotion L. Walk/Wheelchair (C) Sherry L. Walk/Wheelchair (W) Sherry M. Stairs ADNO - Communication N. Comprehension (B) Ind O. Expression (B) Ind - Social Cognition P. Social Interaction Ind Q. Problem Solving Ind R. Memory Ind - Endurance Fair - Balance Fair - Safety Awareness Fair CURRENT FUNC. DEFICITS: Safety Awareness, Transfers Control, Balance, Locomotion, Endurance, and Self-Care SIGNATURE PANEL: (SPRINKLER WORKER)
--- NOTE | 2018-02-27 02:00 | FAST ---
SHIFT START DATE/TIME: 02/26/2018 19:00 (CONTRACT OFFICER) SHIFT END DATE/TIME: 02/27/2018 07:00 (CONTRACT OFFICER) NAME JULEE KENNEY DATE OF : 1955 DATE OF ADMISSION: 02/19/2018 15:02 (CONTRACT OFFICER) PHONE: AGE: 62 N# [id number] GENDER: Female ENCOUNTER PHYSICIAN: Dr. Mitul Collins M.D. ADMISSION DIAGNOSIS: - Orthopaedic Disorders 08 - Pelvic Fracture (08.3) Left Sacral Ala Insufficiency Fracture. EATING: Activity did not occur on this shift EATING - SCORE: 0-UNK GROOMING: Wash, rinse, and dry hands GROOMING - STEP 1: Does the patient require the assistance of a person or device, or need extra time when grooming? Yes. GROOMING - STEP 2: Does the patient require the assistance of a helper? Yes. GROOMING - STEP 3: How much assistance does the patient require from the helper? Cuing, coaxing, instructions, or encour agement for completion of grooming GROOMING - SCORE: 5-SUP BATHING: Activity did not occur on this shift BATHING - SCORE: 0-UNK DRESSING - UPPER BODY: Activity did not occur on this shift ARTICLES SCORE Total number of steps: 0 DRESSING - UPPER BODY - SCORE: 0-UNK DRESSING - LOWER BODY: Activity did not occur on this shift ARTICLES SCORE Total number of steps: 0 DRESSING - LOWER BODY - SCORE: 0-UNK TOILETING: TOILETING - STEP 1: Does the patient require the assistance of a person or device, or need extra time with toileting? Yes . TOILETING - STEP 2: Does the patient require the assistance of a helper? Yes. TOILETING - STEP 3: How much assistance does the patient require from the helper? Hands-on assistance from the helper TOILETING - STEP 4: Of the 3 tasks: 1) Adjusting clothing prior to use, 2) Cleansing of perineal area, 3) Adjusting clot dameon after use; How many tasks does the patient perform WITHOUT assistance of the helper? Three tasks with steadying assistance from the helper TOILETING - SCORE: 4-MIN BLADDER MANAGEMENT: BLADDER MANAGEMENT - STEP 1: Does the patient control the bladder completely and intentionally without equipment or devices or med ications, and is always continent? No. BLADDER MANAGEMENT - STEP 2: Does the patient require the assistance of a helper? Yes. BLADDER MANAGEMENT - STEP 3: How much assistance does the patient require from the helper? Patient requires contact assistance fro m the helper BLADDER MANAGEMENT - STEP 4: How much contact assistance does the patient require from the helper? Patient requires minimal assist ance to maintain an external device - by positioning, and the patient performs 75% or more of bladder management tasks, while the helper provides less than 25% of the assistance to position patient on / off bedpan BLADDER MANAGEMENT - SCORE: 4-MIN BOWEL MANAGEMENT: Activity did not occur on this shift BOWEL MANAGEMENT - SCORE: 7-IND TRANSFERS: BED, CHAIR, WHEELCHAIR: TRANSFERS: BED, CHAIR, WHEELCHAIR - STEP 1: Does the patient require assistance of a person or device, or need extra time with bed, chair, or whe elchair transfers? Yes. TRANSFERS: BED, CHAIR, WHEELCHAIR - STEP 2: Does the patient require the assistance of a helper? Yes. TRANSFERS: BED, CHAIR, WHEELCHAIR - STEP 3: How much assistance does the patient require from the helper? Lifting of the legs TRANSFERS: BED, CHAIR, WHEELCHAIR - STEP 4: How many legs does the patient require the helper to lift? one leg TRANSFERS: BED, CHAIR, WHEELCHAIR - SCORE: 4-MIN TRANSFERS: TOILET: TRANSFERS: TOILET - STEP 1: Does the patient require the assistance of a person or device, or need extra time with toilet transfe rs? Yes. TRANSFERS: TOILET - STEP 2: Does the patient require the assistance of a helper? Yes. TRANSFERS: TOILET - STEP 3: How much assistance does the patient require from the helper? Patient performs half or more of the tr ansferring tasks TRANSFERS: TOILET - STEP 4: Does the patient need only incidental help such as contact guard or steadying during toilet transfer? Yes. TRANSFERS: TOILET - SCORE: 4-MIN TRANSFERS: SHOWER: Activity did not occur on this shift TRANSFERS: SHOWER - SCORE: 0-UNK TRANSFERS: TUB: Activity did not occur on this shift TRANSFERS: TUB - SCORE: 0-UNK LOCOMOTION: WALK: Activity did not occur on this shift LOCOMOTION: WALK - SCORE: 0-UNK LOCOMOTION: WHEELCHAIR: Activity did not occur on this shift LOCOMOTION: WHEELCHAIR - SCORE: 0-UNK COMPREHENSION: COMPREHENSION: TYPE: Both COMPREHENSION - STEP 1: Does the patient require help from a person or device, or need extra time to understand complex and a bstract ideas (such as current events, finances, discharge planning, medical issues, relationships, e tc)? No. COMPREHENSION - STEP 2: Does the patient need extra time, require an assistive device (such as glasses for visual comprehensi on or a hearing aid for auditory comprehension) or does s/he have mild difficulty understanding compl ex and abstract information? Yes. COMPREHENSION - SCORE: 6-CYNDIE EXPRESSION EXPRESSION: TYPE: Both EXPRESSION - STEP 1: Does the patient require help from a person or device, or need extra time expressing complex and abst ract ideas (such as current events, finances, discharge planning, medical issues, relationships, etc) ? No. EXPRESSION - STEP 2: Does the patient need extra time, require an assistive device (such as augmentive communication syste m or a communication board), OR does s/he have mild difficulty expressing complex and abstract ideas (including mild dysarthria or mild word-find problems)? No. EXPRESSION - SCORE: 7-IND SOCIAL INTERACTION: SOCIAL INTERACTION - STEP 1: Does the patient require a helper to interact with others in social and therapeutic situations? No. SOCIAL INTERACTION - STEP 2: Does the patient need extra time in social situations, OR does s/he interact with staff, other patien ts, and family members ONLY in structured environments, OR does s/he require medication for social in teraction? No. SOCIAL INTERACTION - SCORE: 7-IND PROBLEM SOLVING: PROBLEM SOLVING - STEP 1: Does the patient need help from a person or device, or need extra time to solve complex problems such as managing a checking account or confronting interpersonal problems? No. PROBLEM SOLVING - STEP 2: Does the patient require extra time to make decisions or solve problems, OR does s/he have slight dif ficulty reading, initiating, or self-correcting in unfamiliar situations? No. PROBLEM SOLVING - SCORE: 7-IND MEMORY: MEMORY - STEP 1: Does the patient need help from a person or device, or need extra time to remember frequently encount ered people, daily routines, and executing requests? No. MEMORY - STEP 2: Does the patient have slight difficulty recognizing frequently encountered people, daily routines, or executing requests without the need for repetition or using self-initiated or environmental cues to remember? No. MEMORY - SCORE: 7-IND SIGNATURE PANEL: The following modified sections: Eating - Score, Grooming - Score, Bathing - Score, Dressing - Upper Body - Score, Dressing - Lower Body - Score, Toileting - Score, Bladder Management - Score, Bowel Man agement - Score, Transfers: Bed, Chair, Wheelchair - Score, Transfers: Toilet - Score, Transfers: Sia wer - Score, Transfers: Tub - Score, Locomotion: Walk - Score, Locomotion: Wheelchair - Score, Compre hension - Score, Expression - Score, Social Interaction - Score, Problem Solving - Score, Memory - Sc ore were [electronically] signed by Fouzia Davidson RN on MonFeb 27 2018 01:59:25 GMT-0600 ([place] Time)
[2018-02-27] MEDS: CARVEDILOL 12.5 MG TAB PO SCH ×2 (05:00→17:00)
[2018-02-27] MEDS: HYDROCODONE/APAP 5/325 MG TAB PO PRN (05:00)
[2018-02-27] MEDS: INSULIN -REGULAR HUMAN 50 UNIT/0.5 ML ML SQ SCH ×4 (07:30→20:49)
[2018-02-27] MEDS: LACTULOSE 20 GM/30 ML UCUP PO SCH (08:00)
[2018-02-27] MEDS: PROMOD 30 ML DOSE PO SCH ×2 (08:00→20:00)
[2018-02-27] MEDS: POLYETHYL GLY 3350 17 GM/DOSE PO SCH (08:00)
[2018-02-27] MEDS: TRAMADOL HCL 50 MG TAB PO PRN ×2 (08:18→14:52)
[2018-02-27] MEDS: glipiZIDE 5 MG TAB PO SCH (08:19)
[2018-02-27] MEDS: ASPIRIN EC 81 MG TAB PO SCH (08:19)
[2018-02-27] MEDS: FOLIC ACID 1 MG TABLET PO SCH (08:19)
[2018-02-27] MEDS: FUROSEMIDE 40 MG TABLET PO SCH (08:19)
[2018-02-27] MEDS: MAGNESIUM OXIDE 400 MG TAB PO SCH ×2 (08:19→20:46)
[2018-02-27] MEDS: FERROUS SULFATE 325 MG TAB PO SCH (08:20)
[2018-02-27] MEDS: CYANOCOBALAMIN 1,000 MCG TAB PO SCH (08:20)
[2018-02-27] MEDS: MEMANTINE HCL 10 MG TABLET PO SCH ×2 (08:20→20:46)
[2018-02-27] MEDS: CLOPIDOGREL 75 MG TABLET PO SCH (08:20)
[2018-02-27] MEDS: GABAPENTIN 300 MG CAP PO SCH ×2 (08:20→20:46)
[2018-02-27] MEDS: HYDRALAZINE HCL 25 MG TABLET PO SCH ×3 (08:20→20:47)
[2018-02-27] MEDS: FE SULF/FA/VIT B COMP & C TAB PO SCH (08:20)
[2018-02-27] MEDS: XELJANZ 5 MG PO SCH (08:21)
[2018-02-27] MEDS: PARoxetine HCl 10 MG TAB PO SCH ×2 (08:21→09:56)
[2018-02-27] MEDS ORDERED: LACTULOSE 20 GM/30 ML UCUP PO PRN (08:56)
[2018-02-27] MEDS: LISINOPRIL 5 MG TAB PO SCH ×2 (09:57→20:47)
--- NOTE | 2018-02-27 10:35 | FAST ---
SHIFT START DATE/TIME: 02/27/2018 07:00 (GEOTHERMAL SHEET METAL WORKER) SHIFT END DATE/TIME: 02/27/2018 19:00 (GEOTHERMAL SHEET METAL WORKER) NAME JULEE KENNEY DATE OF : 1955 DATE OF ADMISSION: 02/19/2018 15:02 (GEOTHERMAL SHEET METAL WORKER) PHONE: AGE: 62 SSN# [id number] GENDER: Female ENCOUNTER PHYSICIAN: Dr. Mitul Collins M.D. ADMISSION DIAGNOSIS: - Orthopaedic Disorders 08 - Pelvic Fracture (08.3) Left Sacral Ala Insufficiency Fracture. EATING: EATING - STEP 1: Does the patient require the assistance of a person or device, or need extra time when eating? Yes. EATING - STEP 2: Does the patient require the assistance of a helper? No, patient only requires an assistive device, O R s/he takes more than reasonable time to eat, OR there is a safety concern, OR s/he requires modifie d food consistency EATING - SCORE: 6-CYNDIE GROOMING: Comb/brush hair Oral care GROOMING - STEP 1: Does the patient require the assistance of a person or device, or need extra time when grooming? Yes. GROOMING - STEP 2: Does the patient require the assistance of a helper? No. The patient only requires an assistive devic e, OR takes more than reasonable time to groom, OR there is a concern for safety as the patient groom s GROOMING - SCORE: 6-CYNDIE BATHING: Activity did not occur on this shift BATHING - SCORE: 0-UNK DRESSING - UPPER BODY: Patient is not dressing in public clothing ARTICLES SCORE Total number of steps: 0 DRESSING - UPPER BODY - SCORE: 0-UNK DRESSING - LOWER BODY: Patient is not dressing in public clothing ARTICLES SCORE Total number of steps: 0 DRESSING - LOWER BODY - SCORE: 0-UNK TOILETING: TOILETING - STEP 1: Does the patient require the assistance of a person or device, or need extra time with toileting? Yes . TOILETING - STEP 2: Does the patient require the assistance of a helper? Yes. TOILETING - STEP 3: How much assistance does the patient require from the helper? Hands-on assistance from the helper TOILETING - STEP 4: Of the 3 tasks: 1) Adjusting clothing prior to use, 2) Cleansing of perineal area, 3) Adjusting clot dameon after use; How many tasks does the patient perform WITHOUT assistance of the helper? Three tasks with steadying assistance from the helper TOILETING - SCORE: 4-MIN BLADDER MANAGEMENT: BLADDER MANAGEMENT - STEP 1: Does the patient control the bladder completely and intentionally without equipment or devices or med ications, and is always continent? Yes. BLADDER MANAGEMENT - SCORE: 7-IND BOWEL MANAGEMENT: Activity did not occur on this shift BOWEL MANAGEMENT - SCORE: 7-IND TRANSFERS: BED, CHAIR, WHEELCHAIR: TRANSFERS: BED, CHAIR, WHEELCHAIR - STEP 1: Does the patient require assistance of a person or device, or need extra time with bed, chair, or whe elchair transfers? Yes. TRANSFERS: BED, CHAIR, WHEELCHAIR - STEP 2: Does the patient require the assistance of a helper? Yes. TRANSFERS: BED, CHAIR, WHEELCHAIR - STEP 3: How much assistance does the patient require from the helper? Steadying/guiding assistance TRANSFERS: BED, CHAIR, WHEELCHAIR - SCORE: 4-MIN TRANSFERS: TOILET: TRANSFERS: TOILET - STEP 1: Does the patient require the assistance of a person or device, or need extra time with toilet transfe rs? Yes. TRANSFERS: TOILET - STEP 2: Does the patient require the assistance of a helper? Yes. TRANSFERS: TOILET - STEP 3: How much assistance does the patient require from the helper? Patient performs half or more of the tr ansferring tasks TRANSFERS: TOILET - STEP 4: Does the patient need only incidental help such as contact guard or steadying during toilet transfer? Yes. TRANSFERS: TOILET - SCORE: 4-MIN TRANSFERS: SHOWER: Activity did not occur on this shift TRANSFERS: SHOWER - SCORE: 0-UNK TRANSFERS: TUB: Activity did not occur on this shift TRANSFERS: TUB - SCORE: 0-UNK LOCOMOTION: WALK: Activity did not occur on this shift LOCOMOTION: WALK - SCORE: 0-UNK LOCOMOTION: WHEELCHAIR: Activity did not occur on this shift LOCOMOTION: WHEELCHAIR - SCORE: 0-UNK COMPREHENSION: COMPREHENSION: TYPE: Both COMPREHENSION - STEP 1: Does the patient require help from a person or device, or need extra time to understand complex and a bstract ideas (such as current events, finances, discharge planning, medical issues, relationships, e tc)? No. COMPREHENSION - STEP 2: Does the patient need extra time, require an assistive device (such as glasses for visual comprehensi on or a hearing aid for auditory comprehension) or does s/he have mild difficulty understanding compl ex and abstract information? Yes. COMPREHENSION - SCORE: 6-CYNDIE EXPRESSION EXPRESSION: TYPE: Both EXPRESSION - STEP 1: Does the patient require help from a person or device, or need extra time expressing complex and abst ract ideas (such as current events, finances, discharge planning, medical issues, relationships, etc) ? Yes. EXPRESSION - STEP 2: Does the patient require help to express basic necessities or ideas (such as hunger, thirst, sleep, s afety, daily schedule, room location, or discomfort) half or more of the time? No. EXPRESSION - STEP 3: How often does the patient need help to express directions and conversation about basic needs? Less t gallego 10% of the time EXPRESSION - SCORE: 5-SUP SOCIAL INTERACTION: SOCIAL INTERACTION - STEP 1: Does the patient require a helper to interact with others in social and therapeutic situations? No. SOCIAL INTERACTION - STEP 2: Does the patient need extra time in social situations, OR does s/he interact with staff, other patien ts, and family members ONLY in structured environments, OR does s/he require medication for social in teraction? Yes, patient needs extra time SOCIAL INTERACTION - SCORE: 6-CYNDIE PROBLEM SOLVING: PROBLEM SOLVING - STEP 1: Does the patient need help from a person or device, or need extra time to solve complex problems such as managing a checking account or confronting interpersonal problems? No. PROBLEM SOLVING - STEP 2: Does the patient require extra time to make decisions or solve problems, OR does s/he have slight dif ficulty reading, initiating, or self-correcting in unfamiliar situations? Yes, patient needs extra ti me. PROBLEM SOLVING - SCORE: 6-CYNDIE MEMORY: MEMORY - STEP 1: Does the patient need help from a person or device, or need extra time to remember frequently encount ered people, daily routines, and executing requests? No. MEMORY - STEP 2: Does the patient have slight difficulty recognizing frequently encountered people, daily routines, or executing requests without the need for repetition or using self-initiated or environmental cues to remember? Yes. MEMORY - SCORE: 6-CYNDIE SIGNATURE PANEL: The following modified sections: Eating - Score, Grooming - Score, Bathing - Score, Dressing - Upper Body - Score, Dressing - Lower Body - Score, Toileting - Score, Bladder Management - Score, Bowel Man agement - Score, Transfers: Bed, Chair, Wheelchair - Score, Transfers: Toilet - Score, Transfers: Sia wer - Score, Transfers: Tub - Score, Locomotion: Walk - Score, Locomotion: Wheelchair - Score, Compre hension - Score, Expression - Score, Social Interaction - Score, Problem Solving - Score, Memory - Sc ore were [electronically] signed by Moe Vallejo on MonFeb 27 2018 10:34:47 GMT-0600 (Central Standard Time)
[2018-02-27] MEDS ORDERED: METOLAZONE 5 MG TABLET PO ONE (11:00)
--- NOTE | 2018-02-27 11:53 | FAST ---
ENCOUNTER DATE AND TIME: 02/26/2018 08:00 (LEGAL FINANCIAL SPECIALIST) NAME JULEE KENNEY DATE OF : 1955 DATE OF ADMISSION: 02/19/2018 15:02 (LEGAL FINANCIAL SPECIALIST) PHONE: AGE: 62 N# [id number] GENDER: Female ENCOUNTER PHYSICIAN: Dr. Mitul Collins M.D. ADMISSION DIAGNOSIS: - Orthopaedic Disorders 08 - Pelvic Fracture (08.3) Left Sacral Ala Insufficiency Fracture. EATING: Activity did not occur on this shift EATING - SCORE: 0-UNK GROOMING: Activity did not occur on this shift GROOMING - SCORE: 0-UNK BATHING: Activity did not occur on this shift BATHING - SCORE: 0-UNK DRESSING - UPPER BODY: Activity did not occur on this shift Patient is not dressing in public clothing ARTICLES SCORE Total number of steps: 0 DRESSING - UPPER BODY - SCORE: 0-UNK DRESSING - LOWER BODY: Activity did not occur on this shift Patient is not dressing in public clothing ARTICLES SCORE Total number of steps: 0 DRESSING - LOWER BODY - SCORE: 0-UNK TOILETING: Activity did not occur on this shift TOILETING - SCORE: 0-UNK BLADDER MANAGEMENT: Activity did not occur on this shift BLADDER MANAGEMENT - SCORE: 7-IND BOWEL MANAGEMENT: Activity did not occur on this shift BOWEL MANAGEMENT - SCORE: 7-IND TRANSFERS: BED, CHAIR, WHEELCHAIR: TRANSFERS: BED, CHAIR, WHEELCHAIR - STEP 1: Does the patient require assistance of a person or device, or need extra time with bed, chair, or whe elchair transfers? Yes. TRANSFERS: BED, CHAIR, WHEELCHAIR - STEP 2: Does the patient require the assistance of a helper? Yes. TRANSFERS: BED, CHAIR, WHEELCHAIR - STEP 3: How much assistance does the patient require from the helper? Only supervision TRANSFERS: BED, CHAIR, WHEELCHAIR - SCORE: 5-SUP TRANSFERS: TOILET: Activity did not occur on this shift TRANSFERS: TOILET - SCORE: 0-UNK TRANSFERS: SHOWER: Activity did not occur on this shift TRANSFERS: SHOWER - SCORE: 0-UNK TRANSFERS: TUB: Activity did not occur on this shift TRANSFERS: TUB - SCORE: 0-UNK LOCOMOTION: WALK: LOCOMOTION: WALK - STEP 1: Does the patient need help from a person or device, or need extra time to walk 150 feet? Yes. LOCOMOTION: WALK - STEP 2: How much assistance does the patient require to walk a minimum of 150 feet? Only supervision, cuing, or coaxing LOCOMOTION: WALK - SCORE: 5-SUP LOCOMOTION: WHEELCHAIR: LOCOMOTION: WHEELCHAIR - STEP 1: Does the patient need help to go 150 feet in a wheelchair? Yes. LOCOMOTION: WHEELCHAIR - STEP 2: How much assistance does the patient need from the helper? Only supervision, cuing, or coaxing LOCOMOTION: WHEELCHAIR - SCORE: 5-SUP LOCOMOTION: STAIRS: LOCOMOTION: STAIRS - STEP 1: Does the patient need help to go up and down 12 to 14 stairs? Yes. LOCOMOTION: STAIRS - STEP 2: How much assistance does the patient need from the helper to go a minimum of 12 to 14 stairs? The pat ient goes less than 12 stairs, but at least 4 stairs LOCOMOTION: STAIRS - SCORE: 2-MAX COMPREHENSION: COMPREHENSION - SCORE: 0-UNK EXPRESSION EXPRESSION - SCORE: 0-UNK SOCIAL INTERACTION: SOCIAL INTERACTION - SCORE: 0-UNK PROBLEM SOLVING: PROBLEM SOLVING - SCORE: 0-UNK MEMORY: MEMORY - SCORE: 0-UNK SIGNATURE PANEL: The following modified sections: Transfers: Bed, Chair, Wheelchair - Score, Transfers: Toilet - Score , Locomotion: Walk - Score, Locomotion: Wheelchair - Score, Locomotion: Stairs - Score were [gordon miguel] signed by Vincent Blanca PTA on MonFeb 27 2018 11:52:18 GMT-0600 (Central Standard Time)
--- NOTE | 2018-02-27 15:05 | FAST ---
ENCOUNTER DATE AND TIME: 02/27/2018 08:00 (SALES ESTIMATOR) NAME JULEE KENNEY DATE OF : 1955 DATE OF ADMISSION: 02/19/2018 15:02 (SALES ESTIMATOR) PHONE: AGE: 62 N# [id number] GENDER: Female ENCOUNTER PHYSICIAN: Dr. Mitul Collins M.D. ADMISSION DIAGNOSIS: - Orthopaedic Disorders 08 - Pelvic Fracture (08.3) Left Sacral Ala Insufficiency Fracture. EATING: Activity did not occur on this shift EATING - SCORE: 0-UNK GROOMING: Comb/brush hair Wash, rinse, and dry face Wash, rinse, and dry hands GROOMING - STEP 1: Does the patient require the assistance of a person or device, or need extra time when grooming? No. GROOMING - SCORE: 7-IND BATHING: Activity did not occur on this shift BATHING - SCORE: 0-UNK DRESSING - UPPER BODY: Activity did not occur on this shift ARTICLES SCORE Total number of steps: 0 DRESSING - UPPER BODY - SCORE: 0-UNK DRESSING - LOWER BODY: Activity did not occur on this shift ARTICLES SCORE Total number of steps: 0 DRESSING - LOWER BODY - SCORE: 0-UNK TOILETING: TOILETING - STEP 1: Does the patient require the assistance of a person or device, or need extra time with toileting? Yes . TOILETING - STEP 2: Does the patient require the assistance of a helper? Yes. TOILETING - STEP 3: How much assistance does the patient require from the helper? Hands-on assistance from the helper TOILETING - STEP 4: Of the 3 tasks: 1) Adjusting clothing prior to use, 2) Cleansing of perineal area, 3) Adjusting clot dameon after use; How many tasks does the patient perform WITHOUT assistance of the helper? Three tasks with steadying assistance from the helper TOILETING - SCORE: 4-MIN BLADDER MANAGEMENT: Activity did not occur on this shift BLADDER MANAGEMENT - SCORE: 7-IND BOWEL MANAGEMENT: Activity did not occur on this shift BOWEL MANAGEMENT - SCORE: 7-IND TRANSFERS: BED, CHAIR, WHEELCHAIR: Activity did not occur on this shift TRANSFERS: BED, CHAIR, WHEELCHAIR - SCORE: 0-UNK TRANSFERS: TOILET: TRANSFERS: TOILET - STEP 1: Does the patient require the assistance of a person or device, or need extra time with toilet transfe rs? Yes. TRANSFERS: TOILET - STEP 2: Does the patient require the assistance of a helper? Yes. TRANSFERS: TOILET - STEP 3: How much assistance does the patient require from the helper? Patient performs half or more of the tr ansferring tasks TRANSFERS: TOILET - STEP 4: Does the patient need only incidental help such as contact guard or steadying during toilet transfer? Yes. TRANSFERS: TOILET - SCORE: 4-MIN TRANSFERS: SHOWER: Activity did not occur on this shift TRANSFERS: SHOWER - SCORE: 0-UNK TRANSFERS: TUB: Activity did not occur on this shift TRANSFERS: TUB - SCORE: 0-UNK LOCOMOTION: WALK: Activity did not occur on this shift LOCOMOTION: WALK - SCORE: 0-UNK LOCOMOTION: WHEELCHAIR: Activity did not occur on this shift LOCOMOTION: WHEELCHAIR - SCORE: 0-UNK LOCOMOTION: STAIRS: Activity did not occur on this shift LOCOMOTION: STAIRS - SCORE: 0-UNK COMPREHENSION: COMPREHENSION: TYPE: Visual COMPREHENSION - STEP 1: Does the patient require help from a person or device, or need extra time to understand complex and a bstract ideas (such as current events, finances, discharge planning, medical issues, relationships, e tc)? No. COMPREHENSION - STEP 2: Does the patient need extra time, require an assistive device (such as glasses for visual comprehensi on or a hearing aid for auditory comprehension) or does s/he have mild difficulty understanding compl ex and abstract information? Yes. COMPREHENSION - SCORE: 6-CYNDIE EXPRESSION EXPRESSION: TYPE: Non-Vocal EXPRESSION - STEP 1: Does the patient require help from a person or device, or need extra time expressing complex and abst ract ideas (such as current events, finances, discharge planning, medical issues, relationships, etc) ? No. EXPRESSION - STEP 2: Does the patient need extra time, require an assistive device (such as augmentive communication syste m or a communication board), OR does s/he have mild difficulty expressing complex and abstract ideas (including mild dysarthria or mild word-find problems)? No. EXPRESSION - SCORE: 7-IND SOCIAL INTERACTION: SOCIAL INTERACTION - STEP 1: Does the patient require a helper to interact with others in social and therapeutic situations? No. SOCIAL INTERACTION - STEP 2: Does the patient need extra time in social situations, OR does s/he interact with staff, other patien ts, and family members ONLY in structured environments, OR does s/he require medication for social in teraction? No. SOCIAL INTERACTION - SCORE: 7-IND PROBLEM SOLVING: PROBLEM SOLVING - STEP 1: Does the patient need help from a person or device, or need extra time to solve complex problems such as managing a checking account or confronting interpersonal problems? No. PROBLEM SOLVING - STEP 2: Does the patient require extra time to make decisions or solve problems, OR does s/he have slight dif ficulty reading, initiating, or self-correcting in unfamiliar situations? Yes, patient needs extra ti me. PROBLEM SOLVING - SCORE: 6-CYNDIE MEMORY: MEMORY - STEP 1: Does the patient need help from a person or device, or need extra time to remember frequently encount ered people, daily routines, and executing requests? No. MEMORY - STEP 2: Does the patient have slight difficulty recognizing frequently encountered people, daily routines, or executing requests without the need for repetition or using self-initiated or environmental cues to remember? Yes. MEMORY - SCORE: 6-CYNDIE SIGNATURE PANEL: The following modified sections: Eating - Score, Grooming - Score, Bathing - Score, Dressing - Upper Body - Score, Dressing - Lower Body - Score, Toileting - Score, Transfers: Bed, Chair, Wheelchair - S core, Transfers: Toilet - Score, Transfers: Shower - Score, Transfers: Tub - Score, Comprehension - S core, Expression - Score, Social Interaction - Score, Problem Solving - Score, Memory - Score were [e lectronically] signed by CIRO Gentile on MonFeb 27 2018 15:04:46 T-0600 (Central [place] Time)
--- NOTE | 2018-02-27 15:14 | FAST ---
ENCOUNTER DATE AND TIME: 02/27/2018 08:00 (LEAD QUALITY CONTROL TECHNICIAN) NAME JULEE KENNEY DATE OF : 1955 DATE OF ADMISSION: 02/19/2018 15:02 (LEAD QUALITY CONTROL TECHNICIAN) PHONE: AGE: 62 N# [id number] GENDER: Female ENCOUNTER PHYSICIAN: Dr. Mitul Collnis M.D. ADMISSION DIAGNOSIS: - Orthopaedic Disorders 08 - Pelvic Fracture (08.3) Left Sacral Ala Insufficiency Fracture. EATING: Activity did not occur on this shift EATING - SCORE: 0-UNK GROOMING: Activity did not occur on this shift GROOMING - SCORE: 0-UNK BATHING: Activity did not occur on this shift BATHING - SCORE: 0-UNK DRESSING - UPPER BODY: Activity did not occur on this shift Patient is not dressing in public clothing ARTICLES SCORE Total number of steps: 0 DRESSING - UPPER BODY - SCORE: 0-UNK DRESSING - LOWER BODY: Activity did not occur on this shift Patient is not dressing in public clothing ARTICLES SCORE Total number of steps: 0 DRESSING - LOWER BODY - SCORE: 0-UNK TOILETING: Activity did not occur on this shift TOILETING - SCORE: 0-UNK BLADDER MANAGEMENT: Activity did not occur on this shift BLADDER MANAGEMENT - SCORE: 7-IND BOWEL MANAGEMENT: Activity did not occur on this shift BOWEL MANAGEMENT - SCORE: 7-IND TRANSFERS: BED, CHAIR, WHEELCHAIR: TRANSFERS: BED, CHAIR, WHEELCHAIR - STEP 1: Does the patient require assistance of a person or device, or need extra time with bed, chair, or whe elchair transfers? Yes. TRANSFERS: BED, CHAIR, WHEELCHAIR - STEP 2: Does the patient require the assistance of a helper? Yes. TRANSFERS: BED, CHAIR, WHEELCHAIR - STEP 3: How much assistance does the patient require from the helper? Only supervision TRANSFERS: BED, CHAIR, WHEELCHAIR - SCORE: 5-SUP TRANSFERS: TOILET: Activity did not occur on this shift TRANSFERS: TOILET - SCORE: 0-UNK TRANSFERS: SHOWER: Activity did not occur on this shift TRANSFERS: SHOWER - SCORE: 0-UNK TRANSFERS: TUB: Activity did not occur on this shift TRANSFERS: TUB - SCORE: 0-UNK LOCOMOTION: WALK: Activity did not occur on this shift LOCOMOTION: WALK - SCORE: 0-UNK LOCOMOTION: WHEELCHAIR: LOCOMOTION: WHEELCHAIR - STEP 1: Does the patient need help to go 150 feet in a wheelchair? Yes. LOCOMOTION: WHEELCHAIR - STEP 2: How much assistance does the patient need from the helper? Only supervision, cuing, or coaxing LOCOMOTION: WHEELCHAIR - SCORE: 5-SUP LOCOMOTION: STAIRS: Activity did not occur on this shift LOCOMOTION: STAIRS - SCORE: 0-UNK COMPREHENSION: COMPREHENSION - SCORE: 0-UNK EXPRESSION EXPRESSION - SCORE: 0-UNK SOCIAL INTERACTION: SOCIAL INTERACTION - SCORE: 0-UNK PROBLEM SOLVING: PROBLEM SOLVING - SCORE: 0-UNK MEMORY: MEMORY - SCORE: 0-UNK SIGNATURE PANEL: The following modified sections: Transfers: Bed, Chair, Wheelchair - Score, Transfers: Toilet - Score , Locomotion: Walk - Score, Locomotion: Wheelchair - Score, Locomotion: Stairs - Score were [gordon miguel] signed by Vincent Blanca PTA on MonFeb 27 2018 15:13:39 GMT-0600 (Central Standard Time)
--- NOTE | 2018-02-27 18:34 | R.PN ---
ENCOUNTER DATE AND TIME: 02/27/2018 18:31 (SHALE PL[employer]ER OPERATOR HELPER) NAME JULEE KENNEY DATE OF : 1955 DATE OF ADMISSION: 02/19/2018 15:02 ([employer]ALE PL[employer]ER OPERATOR HELPER) Left Sacral Ala Insufficiency FractureCHIEF COMPLAINT: Left sacral fracture SUBJECTIVE: Pt denied any depression. Pt denied any Shortness of Breath. Ambulated 1000' with standby assistance using a rolling walker. Self-propelled wheelchair 500' with s tandby assistance. Up and down 5 steps with contact guard assistance. Ambulated 500' with standby assistance using a rolling walker. Up and down 15 steps with standby assi stance. VITAL SIGNS Temperature: 97.8 F SBP/DBP: 159/70 Pulse: 60 Resp: 16 Elevated blood pressures. Will increase Lisinopril to 10 mg twice daily. MEDICATION ALLERGIES: PENICILLIN ENVIRONMENTAL ALLERGIES: None Known - Substance Allergies None Known - Other Allergies None Known NURSING: - Shower allowing shower - Lab Results blood Sugar Check ACHS - Skin care per protocol ACTIVITIES OOB only with supervision THERAPIES: - Occupational Therapy Evaluate and Treat. - Physical Therapy Evaluate and Treat. PHYSICAL EXAM - Gen Alert and awake Lying in bed No apparent distress Oriented to: person, time, and place - Skin No breakdowns No abnormalities - Eyes No abnormalities - ENMT No abnormalities - Neck No abnormalities - CVS RRR - Chest No abnormalities - Abd + bowel sounds - GI Soft Deferred - No abnormalities - Ext No significant edema. - MSK 4/5 weakness in both lower extremities. - Neuro No focal deficits - Psych No abnormalities ASSESSMENT: Pt. is a 62 yo Right-handed white female.On 02/14/2018 she was admitted to [facility] with diagnosis Left Sacral Ala Insufficiency Fracture.Her impairment category is Orthopaedic D isorders 08 - Pelvic Fracture (08.3).Pre-morbidly, Pt. was independent/mod-I in Transfers Control, C ommunication, Social Cognition, Self-Care, Locomotion, and Sphincter Control; and she had good Sphinc ter Control.Currently, she has deficits of Safety Awareness, Transfers Control, Balance, Locomotion, Endurance, and Self-Care.Pt. is now referred to [facility] for acute in-patien t rehabilitation in order to maximize patient's functional independence in activities of daily living , strength, ROM, and mobility.- Rehab Goal Patient has realistic goal of being discharged at assistance level 6-Bushra to reside at Home with Fam roxana/Relatives. MDM/PLAN: - Physical Therapy Decreased range of motion - to improve, our physical therapists will perform initial evaluation of p t's status upon admission and devise an individualized program for increasing patient's Range of Milind on. Gait dysfunction - to improve, our physical therapists will perform initial evaluation of pt's statu s upon admission and devise an individualized program for Gait Training, and Wheel Chair mobility Inability to transfer - to improve, our physical therapists will perform initial evaluation of pt's status upon admission and devise an individualized program for Bed mobility Need for home safety evaluation - to improve, our physical therapists will perform initial evaluatio n of pt's status upon admission and devise an individualized program for Home Evaluation Need in caregiver upon discharge - to improve, our physical therapists will perform initial evaluati on of pt's status upon admission and devise an individualized program for Caregiver Training New precaution - to improve, our physical therapists will perform initial evaluation of pt's status upon admission and devise an individualized program for Patient precaution education Poor balance - to improve, our physical therapists will perform initial evaluation of pt's status up on admission and devise an individualized program for Balance Training Poor endurance - to improve, our physical therapists will perform initial evaluation of pt's status upon admission and devise an individualized program for Endurance Training Weakness - to improve, our physical therapists will perform initial evaluation of pt's status upon a dmission and devise an individualized program for Aquatic Therapy, Neuromuscular Reeducation, and Str engthening Achieving independence - to improve, our physical therapists will perform initial evaluation of pt's status upon admission and devise an individualized program for Community Reintegration Activities - Occupational Therapy ADL deficits - to improve, our occupation therapists will perform initial evaluation of pt's status upon admission and devise an individualized program for Bathing, Bed mobility, Community Reintegratio n, Cooking, Dressing, Eating, Fine Motor Skills, Grooming, Homemaking, Kitchen Mobility, Laundry, Pat ient Education, Safety Awareness, Splinting - Positioning, Transfers(Toilet, Tub, Shower), and Wheel Chair Management Need for healthcare advisory services manager - to improve, our occupation therapists will perform initial evaluation of pt's status upon admission and devise an individualized program for Caregiver Training Weakness - to improve, our occupation therapists will perform initial evaluation of pt's status upon admission and devise an individualized program for Aquatic Therapy, Balance, Endurance, UE ROM, and UE strengthening - Diet Type Continue Regular - Diet - Liquid Texture Continue Regular - Tube Feed Continue N/A - Lab Results blood Sugar Check ACHS - Skin care per protocol - Diet - Solid Texture Continue Regular - Shower allowing shower FUNCTIONAL STATUS: UPDATED AT WEEKLY TEAM CONFERENCE - Bladder Same accident frequency: 7-Ind - No accidents in the past 7 days - Bowel Same accident frequency: 7-Ind - No accidents in the past 7 days - Walking Same score based on distance walked: 2(50-149ft) - Wheelchair Same score based on distance traveled: 0(N/A) FUNCTIONAL STATUS: - Self-Care A. Eating Bushra B. Grooming Ind C. Bathing sup D. Dressing - Upper sup E. Dressing - Lower sup F. Toileting Sherry - Sphincter Control G: Bladder control Ind H: Bowel control Ind - Transfers Control I. Bed/Chair/Wheelchair Sherry J. Toilet Sherry K. Tub/Shower ADNO - Locomotion L. Walk/Wheelchair (C) Sherry L. Walk/Wheelchair (W) Sherry M. Stairs ADNO - Communication N. Comprehension (B) Ind O. Expression (B) Ind - Social Cognition P. Social Interaction Ind Q. Problem Solving Ind R. Memory Ind - Endurance Fair - Balance Fair - Safety Awareness Fair CURRENT FUNC. DEFICITS: Safety Awareness, Transfers Control, Balance, Locomotion, Endurance, and Self-Care SIGNATURE PANEL: ([employer] OPERATOR HELPER)
--- NOTE | 2018-02-27 18:46 | P.PN ---
Subjective Date of Service: 02/27/18 Subjective: No new changes, Improving Review of Systems 10-point ROS is otherwise unremarkable Physical Examination - Vital Signs Temperature: 97.5 F Blood Pressure: 180/78 Pulse: 60 Respirations: 16 Pulse Ox (%): 94 - Physical Exam General: Alert, In no apparent distress, Oriented x3, Obese HEENT: Atraumatic, PERRLA, EOMI Neck: Supple, JVD not distended Respiratory: Clear to auscultation bilaterally, Normal air movement Cardiovascular: Regular rate/rhythm, Normal S1 S2, Edema Gastrointestinal: Normal bowel sounds, Soft and benign, Non-distended, No tenderness Musculoskeletal: No tenderness Integumentary: No rashes Neurological: Normal speech, Normal strength at 5/5 x4 extr, Normal tone, Normal affect Lymphatics: No axilla or inguinal lymphadenopathy - Studies labs reviewd Assessment And Plan - Plan [facility] Live Progress Note Patient Name: JULEE KENNEY A/P Acute kidney injury superimposed on CKD (Acute 02/15/18) N17.9, N18.9 Closed minimally displaced zone I fracture of sacrum (Acute) S32.111A Diabetes mellitus (Acute 02/15/18) E11.9 Fall (Acute 02/15/18) W19.XXXA Hyperkalemia (Acute 02/15/18) E87.5 Resolved. Hypertension BMP in am. Adjust fluid restriction. Daily wt.
[2018-02-27] MEDS: DOCUSATE NA/SENNA CONC 1 TAB PO SCH (20:46)
[2018-02-27] MEDS: ATORVASTATIN 20 MG TAB PO SCH (20:47)
--- NOTE | 2018-02-27 23:18 | P.PN ---
Date of Service: 02/26/18 Vital Signs Temp Pulse Resp BP Pulse Ox 96.4 F L 51 18 162/72 H 95 02/27/18 21:54 02/27/18 21:54 02/27/18 21:54 02/27/18 21:54 02/27/18 21:54 Medications Acetaminophen (Tylenol -Extra Strength) 500 mg PO Q4H PRN PRN Reason: [id number] Stop: 03/21/18 15:05 Last Admin: 02/20/18 08:28 Dose: 500 mg Hydrocodone Bitart/Acetaminophen ([place] 5/325) 1 tab PO Q6HP PRN PRN Reason: PAIN SEVERE Stop: 03/21/18 15:05 Last Admin: 02/27/18 05:00 Dose: 1 tab Aspirin (Aspirin Ec) 81 mg PO DAILY [facility] Stop: 03/22/18 08:01 Last Admin: 02/27/18 08:19 Dose: 81 mg Atorvastatin Calcium (Lipitor) 20 mg PO BEDTIME [facility] Stop: 03/21/18 21:01 Last Admin: 02/27/18 20:47 Dose: 20 mg Bisacodyl (Dulcolax) 10 mg RI DAILY PRN PRN Reason: CONSTIPATION Stop: 03/26/18 07:23 Last Admin: 02/24/18 11:35 Dose: 10 mg Carvedilol (Coreg) 12.5 mg PO BID 6AM 6PM [facility] Stop: 03/26/18 18:01 Last Admin: 02/27/18 17:00 Dose: 12.5 mg Clopidogrel Bisulfate (Plavix) 75 mg PO DAILY [facility] Stop: 03/22/18 08:01 Last Admin: 02/27/18 08:20 Dose: 75 mg Cyanocobalamin (Vitamin B-12) 1,000 mcg PO DAILY [facility] Stop: 03/22/18 08:01 Last Admin: 02/27/18 08:20 Dose: 1,000 mcg Dextrose (Dextrose 50% Syringe) 12.5 gm IV PRN PRN; Protocol PRN Reason: HYPOGLYCEMIA Stop: 03/21/18 15:05 Diphenhydr/Magaldrate/Simeth/Lidoca (Magic Mouthwash) 15 ml PO QID PRN PRN Reason: SORE THROAT Stop: 03/21/18 15:05 Ferrous Sulfate (Feosol) 325 mg PO DAILY [facility] Stop: 03/22/18 08:01 Last Admin: 02/27/18 08:20 Dose: 325 mg Folic Acid (Folic Acid) 0.5 mg PO DAILY [facility] Stop: 03/22/18 08:01 Last Admin: 02/27/18 08:19 Dose: 0.5 mg Furosemide (Lasix) 40 mg PO DAILY [facility] Stop: 03/27/18 08:01 Last Admin: 02/27/18 08:19 Dose: 40 mg Gabapentin (Neurontin) 300 mg PO BID [facility] Stop: 03/25/18 20:01 Last Admin: 02/27/18 20:46 Dose: 300 mg Glipizide (Glucotrol) 5 mg PO DAILY WITH BREAKFAST [facility] Stop: 03/22/18 08:01 Last Admin: 02/27/18 08:19 Dose: 5 mg Glucagon (Glucagen) 1 mg IM 1X PRN; Protocol PRN Reason: HYPOGLYCEMIA Stop: 03/21/18 15:05 Home Med (Home Med) 0 ea PO DAILY [facility] Stop: 03/25/18 08:01 Last Admin: 02/27/18 08:21 Dose: 1 ea Hydralazine HCl (Apresoline) 10 mg IV Q6HP PRN PRN Reason: HIGH BP Stop: 03/26/18 17:36 Hydralazine HCl (Apresoline) 25 mg PO TID [facility] Stop: 03/26/18 21:01 Last Admin: 02/27/18 20:47 Dose: 25 mg Insulin Human Regular (Novolin -R) 0 unit SQ ACHS [facility]; Protocol Stop: 03/21/18 16:31 Last Admin: 02/27/18 20:49 Dose: Not Given Lactulose (Cephulac) 20 gm PO BID PRN PRN Reason: CONSTIPATION Stop: 03/27/18 20:01 Lisinopril (Prinivil) 5 mg PO BID [facility] Stop: 03/23/18 20:01 Last Admin: 02/27/18 20:47 Dose: 5 mg Magnesium Oxide (Mag 0x Tab) 400 mg PO BID [facility] Stop: 03/23/18 20:01 Last Admin: 02/27/18 20:46 Dose: 400 mg Melatonin (Melatonin) 3 mg PO BEDTIME PRN PRN PRN Reason: INSOMNIA Stop: 03/21/18 16:13 Last Admin: 02/25/18 20:13 Dose: 3 mg Memantine (Namenda) 10 mg PO BID [facility] Stop: 03/21/18 20:01 Last Admin: 02/27/18 20:46 Dose: 10 mg Multivitamins/Iron (Hemocyte Plus) 1 tab PO DAILY WITH BREAKFAST [facility] Stop: 03/22/18 08:01 Last Admin: 02/27/18 08:20 Dose: 1 tab Nutritional Formula (Promod Liquid Protein) 30 ml PO BID [facility] Stop: 03/22/18 20:01 Last Admin: 02/27/18 20:00 Dose: Not Given Paroxetine HCl (Paxil) 40 mg PO DAILY [facility] Stop: 03/22/18 08:01 Last Admin: 02/27/18 09:56 Dose: 10 mg Polyethylene Glycol (Glycolax) 17 gm PO DAILY [facility] Stop: 03/27/18 08:01 Last Admin: 02/27/18 08:00 Dose: Not Given Senna/Docusate Sodium (Senokot-S) 2 tab PO BEDTIME [facility] Stop: 03/21/18 21:01 Last Admin: 02/27/18 20:46 Dose: 2 tab Tramadol HCl (Ultram) 50 mg PO TIDP PRN PRN Reason: PAIN Stop: 03/21/18 15:05 Last Admin: 02/27/18 14:52 Dose: 50 mg Lab Results (last 24 hrs) 02/27/18 21:50: POC Glucose 86 02/27/18 20:48: POC Glucose 70 02/27/18 17:06: POC Glucose 88 02/27/18 16:40: POC Glucose 47 L* 02/27/18 11:49: POC Glucose 149 H 02/27/18 07:02: POC Glucose 114 02/27/18 05:37: POC Glucose 152 H Microbiology Results 02/20/18 00:35 Clean Catch Urine [place] Count - Final <10,000 CFU/ML. 02/20/18 00:35 Clean Catch Urine - Final Assessment/ Plan: Nephrology CPS stable without CP or SOB. No pain. Reports feeling swollen with fair urine output. No acute events overnight. Vitals, medications, blood work and imaging reviewed in the chart. NAD. MMM. Neck supple. CTA. RRR. Soft Abd. No C/C. LE Edema 1+. No rash. AAO. Normal Speech. A/ ZOILA/ CKD III. Proteinuria. DM II with CKD. HTN with CKD. LE Edema. Anemia in chronic illness. Acidosis. Hypokalemia. Hypocalcemia. P/ Continue current POC and Medications other than the changes listed below. AM labs. Daily weight. No NSAIDs. Low sodium diet. Consider increasing diuretic. PT as tolerated.
--- NOTE | 2018-02-27 23:20 | P.PN ---
Date of Service: 02/27/18 Vital Signs Temp Pulse Resp BP Pulse Ox 96.4 F L 51 18 162/72 H 95 02/27/18 21:54 02/27/18 21:54 02/27/18 21:54 02/27/18 21:54 02/27/18 21:54 Medications Acetaminophen (Tylenol -Extra Strength) 500 mg PO Q4H PRN PRN Reason: [id number] Stop: 03/21/18 15:05 Last Admin: 02/20/18 08:28 Dose: 500 mg Hydrocodone Bitart/Acetaminophen ([place] 5/325) 1 tab PO Q6HP PRN PRN Reason: PAIN SEVERE Stop: 03/21/18 15:05 Last Admin: 02/27/18 05:00 Dose: 1 tab Aspirin (Aspirin Ec) 81 mg PO DAILY [facility] Stop: 03/22/18 08:01 Last Admin: 02/27/18 08:19 Dose: 81 mg Atorvastatin Calcium (Lipitor) 20 mg PO BEDTIME [facility] Stop: 03/21/18 21:01 Last Admin: 02/27/18 20:47 Dose: 20 mg Bisacodyl (Dulcolax) 10 mg DE DAILY PRN PRN Reason: CONSTIPATION Stop: 03/26/18 07:23 Last Admin: 02/24/18 11:35 Dose: 10 mg Carvedilol (Coreg) 12.5 mg PO BID 6AM 6PM [facility] Stop: 03/26/18 18:01 Last Admin: 02/27/18 17:00 Dose: 12.5 mg Clopidogrel Bisulfate (Plavix) 75 mg PO DAILY [facility] Stop: 03/22/18 08:01 Last Admin: 02/27/18 08:20 Dose: 75 mg Cyanocobalamin (Vitamin B-12) 1,000 mcg PO DAILY [facility] Stop: 03/22/18 08:01 Last Admin: 02/27/18 08:20 Dose: 1,000 mcg Dextrose (Dextrose 50% Syringe) 12.5 gm IV PRN PRN; Protocol PRN Reason: HYPOGLYCEMIA Stop: 03/21/18 15:05 Diphenhydr/Magaldrate/Simeth/Lidoca (Magic Mouthwash) 15 ml PO QID PRN PRN Reason: SORE THROAT Stop: 03/21/18 15:05 Ferrous Sulfate (Feosol) 325 mg PO DAILY [facility] Stop: 03/22/18 08:01 Last Admin: 02/27/18 08:20 Dose: 325 mg Folic Acid (Folic Acid) 0.5 mg PO DAILY [facility] Stop: 03/22/18 08:01 Last Admin: 02/27/18 08:19 Dose: 0.5 mg Furosemide (Lasix) 40 mg PO DAILY [facility] Stop: 03/27/18 08:01 Last Admin: 02/27/18 08:19 Dose: 40 mg Gabapentin (Neurontin) 300 mg PO BID [facility] Stop: 03/25/18 20:01 Last Admin: 02/27/18 20:46 Dose: 300 mg Glipizide (Glucotrol) 5 mg PO DAILY WITH BREAKFAST [facility] Stop: 03/22/18 08:01 Last Admin: 02/27/18 08:19 Dose: 5 mg Glucagon (Glucagen) 1 mg IM 1X PRN; Protocol PRN Reason: HYPOGLYCEMIA Stop: 03/21/18 15:05 Home Med (Home Med) 0 ea PO DAILY [facility] Stop: 03/25/18 08:01 Last Admin: 02/27/18 08:21 Dose: 1 ea Hydralazine HCl (Apresoline) 10 mg IV Q6HP PRN PRN Reason: HIGH BP Stop: 03/26/18 17:36 Hydralazine HCl (Apresoline) 25 mg PO TID [facility] Stop: 03/26/18 21:01 Last Admin: 02/27/18 20:47 Dose: 25 mg Insulin Human Regular (Novolin -R) 0 unit SQ ACHS [facility]; Protocol Stop: 03/21/18 16:31 Last Admin: 02/27/18 20:49 Dose: Not Given Lactulose (Cephulac) 20 gm PO BID PRN PRN Reason: CONSTIPATION Stop: 03/27/18 20:01 Lisinopril (Prinivil) 5 mg PO BID [facility] Stop: 03/23/18 20:01 Last Admin: 02/27/18 20:47 Dose: 5 mg Magnesium Oxide (Mag 0x Tab) 400 mg PO BID [facility] Stop: 03/23/18 20:01 Last Admin: 02/27/18 20:46 Dose: 400 mg Melatonin (Melatonin) 3 mg PO BEDTIME PRN PRN PRN Reason: INSOMNIA Stop: 03/21/18 16:13 Last Admin: 02/25/18 20:13 Dose: 3 mg Memantine (Namenda) 10 mg PO BID [facility] Stop: 03/21/18 20:01 Last Admin: 02/27/18 20:46 Dose: 10 mg Multivitamins/Iron (Hemocyte Plus) 1 tab PO DAILY WITH BREAKFAST [facility] Stop: 03/22/18 08:01 Last Admin: 02/27/18 08:20 Dose: 1 tab Nutritional Formula (Promod Liquid Protein) 30 ml PO BID [facility] Stop: 03/22/18 20:01 Last Admin: 02/27/18 20:00 Dose: Not Given Paroxetine HCl (Paxil) 40 mg PO DAILY [facility] Stop: 03/22/18 08:01 Last Admin: 02/27/18 09:56 Dose: 10 mg Polyethylene Glycol (Glycolax) 17 gm PO DAILY [facility] Stop: 03/27/18 08:01 Last Admin: 02/27/18 08:00 Dose: Not Given Senna/Docusate Sodium (Senokot-S) 2 tab PO BEDTIME [facility] Stop: 03/21/18 21:01 Last Admin: 02/27/18 20:46 Dose: 2 tab Tramadol HCl (Ultram) 50 mg PO TIDP PRN PRN Reason: PAIN Stop: 03/21/18 15:05 Last Admin: 02/27/18 14:52 Dose: 50 mg Lab Results (last 24 hrs) 02/27/18 21:50: POC Glucose 86 02/27/18 20:48: POC Glucose 70 02/27/18 17:06: POC Glucose 88 02/27/18 16:40: POC Glucose 47 L* 02/27/18 11:49: POC Glucose 149 H 02/27/18 07:02: POC Glucose 114 02/27/18 05:37: POC Glucose 152 H Microbiology Results 02/20/18 00:35 Clean Catch Urine [place] Count - Final <10,000 CFU/ML. 02/20/18 00:35 Clean Catch Urine - Final Assessment/ Plan: Nephrology CPS stable without CP or SOB. No pain. Persistent edema. Good appetite. No acute events overnight. Vitals, medications, blood work and imaging reviewed in the chart. NAD. MMM. Neck supple. CTA. RRR. Soft Abd. No C/C. LE Edema 1+. No rash. AAO. Normal Speech. A/ ZOILA/ CKD III. Proteinuria. DM II with CKD. HTN with CKD. LE Edema. Anemia in chronic illness. Acidosis. Hypokalemia. Hypocalcemia. P/ Continue current POC and Medications other than the changes listed below. AM labs. Daily weight. No NSAIDs. Low sodium diet. Give a dose of metolazone today. Start vitamin d. PT as tolerated.
--- NOTE | 2018-02-28 03:24 | FAST ---
SHIFT START DATE/TIME: 02/27/2018 19:00 (DRY ICE MAKER) SHIFT END DATE/TIME: 02/28/2018 07:00 (DRY ICE MAKER) NAME JULEE KENNEY DATE OF : 1955 DATE OF ADMISSION: 02/19/2018 15:02 (DRY ICE MAKER) PHONE: AGE: 62 SSN# [id number] GENDER: Female ENCOUNTER PHYSICIAN: Dr. Mitul Collins M.D. ADMISSION DIAGNOSIS: - Orthopaedic Disorders 08 - Pelvic Fracture (08.3) Left Sacral Ala Insufficiency Fracture. EATING: Activity did not occur on this shift EATING - SCORE: 0-UNK GROOMING: Activity did not occur on this shift GROOMING - SCORE: 0-UNK BATHING: Activity did not occur on this shift BATHING - SCORE: 0-UNK DRESSING - UPPER BODY: Patient is not dressing in public clothing ARTICLES SCORE Total number of steps: 0 DRESSING - UPPER BODY - SCORE: 0-UNK DRESSING - LOWER BODY: Patient is not dressing in public clothing ARTICLES SCORE Total number of steps: 0 DRESSING - LOWER BODY - SCORE: 0-UNK TOILETING: TOILETING - STEP 1: Does the patient require the assistance of a person or device, or need extra time with toileting? Yes . TOILETING - STEP 2: Does the patient require the assistance of a helper? Yes. TOILETING - STEP 3: How much assistance does the patient require from the helper? Hands-on assistance from the helper TOILETING - STEP 4: Of the 3 tasks: 1) Adjusting clothing prior to use, 2) Cleansing of perineal area, 3) Adjusting clot dameon after use; How many tasks does the patient perform WITHOUT assistance of the helper? Three tasks with steadying assistance from the helper TOILETING - SCORE: 4-MIN BLADDER MANAGEMENT: BLADDER MANAGEMENT - STEP 1: Does the patient control the bladder completely and intentionally without equipment or devices or med ications, and is always continent? No. BLADDER MANAGEMENT - STEP 2: Does the patient require the assistance of a helper? Yes. BLADDER MANAGEMENT - STEP 3: How much assistance does the patient require from the helper? Patient requires contact assistance fro m the helper BLADDER MANAGEMENT - STEP 4: How much contact assistance does the patient require from the helper? Patient requires minimal assist ance to maintain an external device - by positioning, and the patient performs 75% or more of bladder management tasks, while the helper provides less than 25% of the assistance to position patient on / off bedpan BLADDER MANAGEMENT - SCORE: 4-MIN BOWEL MANAGEMENT: Activity did not occur on this shift BOWEL MANAGEMENT - SCORE: 7-IND TRANSFERS: BED, CHAIR, WHEELCHAIR: TRANSFERS: BED, CHAIR, WHEELCHAIR - STEP 1: Does the patient require assistance of a person or device, or need extra time with bed, chair, or whe elchair transfers? Yes. TRANSFERS: BED, CHAIR, WHEELCHAIR - STEP 2: Does the patient require the assistance of a helper? Yes. TRANSFERS: BED, CHAIR, WHEELCHAIR - STEP 3: How much assistance does the patient require from the helper? Lifting of the legs TRANSFERS: BED, CHAIR, WHEELCHAIR - STEP 4: How many legs does the patient require the helper to lift? both legs TRANSFERS: BED, CHAIR, WHEELCHAIR - SCORE: 3-MOD TRANSFERS: TOILET: TRANSFERS: TOILET - STEP 1: Does the patient require the assistance of a person or device, or need extra time with toilet transfe rs? Yes. TRANSFERS: TOILET - STEP 2: Does the patient require the assistance of a helper? Yes. TRANSFERS: TOILET - STEP 3: How much assistance does the patient require from the helper? Patient performs half or more of the tr ansferring tasks TRANSFERS: TOILET - STEP 4: Does the patient need only incidental help such as contact guard or steadying during toilet transfer? Yes. TRANSFERS: TOILET - SCORE: 4-MIN TRANSFERS: SHOWER: Activity did not occur on this shift TRANSFERS: SHOWER - SCORE: 0-UNK TRANSFERS: TUB: Activity did not occur on this shift TRANSFERS: TUB - SCORE: 0-UNK LOCOMOTION: WALK: Activity did not occur on this shift LOCOMOTION: WALK - SCORE: 0-UNK LOCOMOTION: WHEELCHAIR: Activity did not occur on this shift LOCOMOTION: WHEELCHAIR - SCORE: 0-UNK COMPREHENSION: COMPREHENSION: TYPE: Both COMPREHENSION - STEP 1: Does the patient require help from a person or device, or need extra time to understand complex and a bstract ideas (such as current events, finances, discharge planning, medical issues, relationships, e tc)? No. COMPREHENSION - STEP 2: Does the patient need extra time, require an assistive device (such as glasses for visual comprehensi on or a hearing aid for auditory comprehension) or does s/he have mild difficulty understanding compl ex and abstract information? No. COMPREHENSION - SCORE: 7-IND EXPRESSION EXPRESSION: TYPE: Both EXPRESSION - STEP 1: Does the patient require help from a person or device, or need extra time expressing complex and abst ract ideas (such as current events, finances, discharge planning, medical issues, relationships, etc) ? No. EXPRESSION - STEP 2: Does the patient need extra time, require an assistive device (such as augmentive communication syste m or a communication board), OR does s/he have mild difficulty expressing complex and abstract ideas (including mild dysarthria or mild word-find problems)? No. EXPRESSION - SCORE: 7-IND SOCIAL INTERACTION: SOCIAL INTERACTION - STEP 1: Does the patient require a helper to interact with others in social and therapeutic situations? No. SOCIAL INTERACTION - STEP 2: Does the patient need extra time in social situations, OR does s/he interact with staff, other patien ts, and family members ONLY in structured environments, OR does s/he require medication for social in teraction? No. SOCIAL INTERACTION - SCORE: 7-IND PROBLEM SOLVING: PROBLEM SOLVING - STEP 1: Does the patient need help from a person or device, or need extra time to solve complex problems such as managing a checking account or confronting interpersonal problems? No. PROBLEM SOLVING - STEP 2: Does the patient require extra time to make decisions or solve problems, OR does s/he have slight dif ficulty reading, initiating, or self-correcting in unfamiliar situations? No. PROBLEM SOLVING - SCORE: 7-IND MEMORY: MEMORY - STEP 1: Does the patient need help from a person or device, or need extra time to remember frequently encount ered people, daily routines, and executing requests? No. MEMORY - STEP 2: Does the patient have slight difficulty recognizing frequently encountered people, daily routines, or executing requests without the need for repetition or using self-initiated or environmental cues to remember? No. MEMORY - SCORE: 7-IND SIGNATURE PANEL: The following modified sections: Eating - Score, Grooming - Score, Bathing - Score, Dressing - Upper Body - Score, Dressing - Lower Body - Score, Toileting - Score, Bladder Management - Score, Bowel Man agement - Score, Transfers: Bed, Chair, Wheelchair - Score, Transfers: Toilet - Score, Transfers: Sia wer - Score, Transfers: Tub - Score, Locomotion: Walk - Score, Locomotion: Wheelchair - Score, Compre hension - Score, Expression - Score, Social Interaction - Score, Problem Solving - Score, Memory - Sc ore were [electronically] signed by Fouzia Davidson RN on MonFeb 28 2018 03:23:13 GMT-0600 (Central Stand yvette Time)
[2018-02-28] MEDS: CARVEDILOL 12.5 MG TAB PO SCH ×2 (05:01→17:08)
[2018-02-28 06:49] LABS: Magnesium 2.7 mg/dL (1.8-2.4); Phosphorus 4.5 mg/dL (2.5-4.9); Uric Acid 5.9 mg/dL (2.6-6.0)
[2018-02-28] MEDS: INSULIN -REGULAR HUMAN 50 UNIT/0.5 ML ML SQ SCH ×4 (07:30→21:00)
[2018-02-28 07:43] LABS: Potassium 5.4 mmol/L (3.5-5.1)
[2018-02-28] MEDS: PROMOD 30 ML DOSE PO SCH ×2 (08:00→20:00)
[2018-02-28] MEDS: POLYETHYL GLY 3350 17 GM/DOSE PO SCH (08:29)
[2018-02-28] MEDS: XELJANZ 5 MG PO SCH (08:30)
[2018-02-28] MEDS ORDERED: SOD POLYSTYREN SUL 15 GM/60 ML UCUP PO ONE (08:30)
[2018-02-28] MEDS: CALCITROL 0.25 MCG CAP PO SCH (08:31)
[2018-02-28] MEDS: FOLIC ACID 1 MG TABLET PO SCH (08:31)
[2018-02-28] MEDS: CLOPIDOGREL 75 MG TABLET PO SCH (08:31)
[2018-02-28] MEDS: MAGNESIUM OXIDE 400 MG TAB PO SCH ×2 (08:31→20:59)
[2018-02-28] MEDS: GABAPENTIN 300 MG CAP PO SCH ×2 (08:31→20:58)
[2018-02-28] MEDS: PARoxetine HCl 10 MG TAB PO SCH (08:32)
[2018-02-28] MEDS: VITAMIN D 5,000 UNIT CAP PO SCH (08:32)
[2018-02-28] MEDS: LISINOPRIL 5 MG TAB PO SCH (08:32)
[2018-02-28] MEDS: FERROUS SULFATE 325 MG TAB PO SCH (08:33)
[2018-02-28] MEDS: FUROSEMIDE 40 MG TABLET PO SCH (08:33)
[2018-02-28] MEDS: glipiZIDE 5 MG TAB PO SCH (08:33)
[2018-02-28] MEDS: MEMANTINE HCL 10 MG TABLET PO SCH ×2 (08:33→20:59)
[2018-02-28] MEDS: ASPIRIN EC 81 MG TAB PO SCH (08:33)
[2018-02-28] MEDS: FE SULF/FA/VIT B COMP & C TAB PO SCH (08:33)
[2018-02-28] MEDS: CYANOCOBALAMIN 1,000 MCG TAB PO SCH (08:33)
[2018-02-28] MEDS ORDERED: NA CHLORIDE 0.9% 1,000 ML IV SCH (09:00)
[2018-02-28] MEDS: HYDRALAZINE HCL 25 MG TABLET PO SCH ×3 (10:23→20:58)
[2018-02-28] MEDS: TRAMADOL HCL 50 MG TAB PO PRN (10:23)
[2018-02-28] MEDS: HYDROCODONE/APAP 5/325 MG TAB PO PRN ×2 (13:06→20:57)
--- NOTE | 2018-02-28 13:41 | FAST ---
SHIFT START DATE/TIME: 02/28/2018 07:00 (CLINICAL MATERIAL HANDLER) SHIFT END DATE/TIME: 02/28/2018 19:00 (CLINICAL MATERIAL HANDLER) NAME JULEE KENNEY DATE OF : 1955 DATE OF ADMISSION: 02/19/2018 15:02 (CLINICAL MATERIAL HANDLER) PHONE: AGE: 62 SSN# [id number] GENDER: Female ENCOUNTER PHYSICIAN: Dr. Mitul Collins M.D. ADMISSION DIAGNOSIS: - Orthopaedic Disorders 08 - Pelvic Fracture (08.3) Left Sacral Ala Insufficiency Fracture. EATING: EATING - STEP 1: Does the patient require the assistance of a person or device, or need extra time when eating? Yes. EATING - STEP 2: Does the patient require the assistance of a helper? No, patient only requires an assistive device, O R s/he takes more than reasonable time to eat, OR there is a safety concern, OR s/he requires modifie d food consistency EATING - SCORE: 6-CYNDIE GROOMING: Comb/brush hair Wash, rinse, and dry face Wash, rinse, and dry hands GROOMING - STEP 1: Does the patient require the assistance of a person or device, or need extra time when grooming? Yes. GROOMING - STEP 2: Does the patient require the assistance of a helper? No. The patient only requires an assistive devic e, OR takes more than reasonable time to groom, OR there is a concern for safety as the patient groom s GROOMING - SCORE: 6-CYNDIE BATHING: Activity did not occur on this shift BATHING - SCORE: 0-UNK DRESSING - UPPER BODY: Activity did not occur on this shift ARTICLES SCORE Total number of steps: 0 DRESSING - UPPER BODY - SCORE: 0-UNK DRESSING - LOWER BODY: Activity did not occur on this shift ARTICLES SCORE Total number of steps: 0 DRESSING - LOWER BODY - SCORE: 0-UNK TOILETING: TOILETING - STEP 1: Does the patient require the assistance of a person or device, or need extra time with toileting? Yes . TOILETING - STEP 2: Does the patient require the assistance of a helper? Yes. TOILETING - STEP 3: How much assistance does the patient require from the helper? Only supervision TOILETING - SCORE: 5-SUP BLADDER MANAGEMENT: BLADDER MANAGEMENT - STEP 1: Does the patient control the bladder completely and intentionally without equipment or devices or med ications, and is always continent? No. BLADDER MANAGEMENT - STEP 2: Does the patient require the assistance of a helper? Yes. BLADDER MANAGEMENT - STEP 3: How much assistance does the patient require from the helper? Only supervision, stand-by, cuing, or c oaxing BLADDER MANAGEMENT - SCORE: 5-SUP BLADDER MANAGEMENT - FREQUENCY OF ACCIDENTS: BLADDER MANAGEMENT(FA) - STEP 1: How many accidents has the patient had during the current shift? 0 BOWEL MANAGEMENT: BOWEL MANAGEMENT - STEP 1: Does the patient control bowels completely and intentionally without equipment devices or medications AND is always continent? No. BOWEL MANAGEMENT - STEP 2: Does the patient require the assistance of a helper? Yes. BOWEL MANAGEMENT - STEP 3: How much assistance does the patient require from the helper? Patient requires supervision, stand by, cueing, coaxing, or setup of equipment - placing within reach of patient and emptying device / bedpa nd or BSC bucket - to maintain either satisfactory bowel pattern or managing an external device such as an absorbent pad, colostomy bag / ileostomy bag BOWEL MANAGEMENT - SCORE: 5-SUP BOWEL MANAGEMENT - FREQUENCY OF ACCIDENTS: BOWEL MANAGEMENT(FA) - STEP 1: How many accidents has the patient had during the current shift? 0 TRANSFERS: BED, CHAIR, WHEELCHAIR: TRANSFERS: BED, CHAIR, WHEELCHAIR - STEP 1: Does the patient require assistance of a person or device, or need extra time with bed, chair, or whe elchair transfers? Yes. TRANSFERS: BED, CHAIR, WHEELCHAIR - STEP 2: Does the patient require the assistance of a helper? No. Patient only requires an assistive device fo r bed, chair, wheelchair transfers such as a sliding board, grab bar, or brace, OR s/he takes more th an reasonable time, OR there is a safety concern when s/he performs the transfers TRANSFERS: BED, CHAIR, WHEELCHAIR - SCORE: 6-CYNDIE TRANSFERS: TOILET: TRANSFERS: TOILET - STEP 1: Does the patient require the assistance of a person or device, or need extra time with toilet transfe rs? Yes. TRANSFERS: TOILET - STEP 2: Does the patient require the assistance of a helper? Yes. TRANSFERS: TOILET - STEP 3: How much assistance does the patient require from the helper? Patient performs half or more of the tr ansferring tasks TRANSFERS: TOILET - STEP 4: Does the patient need only incidental help such as contact guard or steadying during toilet transfer? No. Patient needs more than incidental help TRANSFERS: TOILET - SCORE: 3-MOD TRANSFERS: SHOWER: Activity did not occur on this shift TRANSFERS: SHOWER - SCORE: 0-UNK TRANSFERS: TUB: Activity did not occur on this shift TRANSFERS: TUB - SCORE: 0-UNK LOCOMOTION: WALK: Activity did not occur on this shift LOCOMOTION: WALK - SCORE: 0-UNK LOCOMOTION: WHEELCHAIR: LOCOMOTION: WHEELCHAIR - STEP 1: Does the patient need help to go 150 feet in a wheelchair? Yes. LOCOMOTION: WHEELCHAIR - STEP 2: How much assistance does the patient need from the helper? Only supervision, cuing, or coaxing LOCOMOTION: WHEELCHAIR - SCORE: 5-SUP COMPREHENSION: COMPREHENSION: TYPE: Both COMPREHENSION - STEP 1: Does the patient require help from a person or device, or need extra time to understand complex and a bstract ideas (such as current events, finances, discharge planning, medical issues, relationships, e tc)? Yes. COMPREHENSION - STEP 2: Does the patient require help to understand questions or statements about basic needs or ideas (such as hunger, thirst, sleep, safety, daily schedule, room location, or discomfort) half or more of the t rafael? No. COMPREHENSION - STEP 3: How often does the patient need help to understand directions and conversation about basic needs? Les s than 10% of the time COMPREHENSION - SCORE: 5-SUP EXPRESSION EXPRESSION: TYPE: Both EXPRESSION - STEP 1: Does the patient require help from a person or device, or need extra time expressing complex and abst ract ideas (such as current events, finances, discharge planning, medical issues, relationships, etc) ? No. EXPRESSION - STEP 2: Does the patient need extra time, require an assistive device (such as augmentive communication syste m or a communication board), OR does s/he have mild difficulty expressing complex and abstract ideas (including mild dysarthria or mild word-find problems)? Yes. EXPRESSION - SCORE: 6-CYNDIE SOCIAL INTERACTION: SOCIAL INTERACTION - STEP 1: Does the patient require a helper to interact with others in social and therapeutic situations? No. SOCIAL INTERACTION - STEP 2: Does the patient need extra time in social situations, OR does s/he interact with staff, other patien ts, and family members ONLY in structured environments, OR does s/he require medication for social in teraction? Yes, patient needs extra time SOCIAL INTERACTION - SCORE: 6-CYNDIE PROBLEM SOLVING: PROBLEM SOLVING - STEP 1: Does the patient need help from a person or device, or need extra time to solve complex problems such as managing a checking account or confronting interpersonal problems? No. PROBLEM SOLVING - STEP 2: Does the patient require extra time to make decisions or solve problems, OR does s/he have slight dif ficulty reading, initiating, or self-correcting in unfamiliar situations? Yes, patient needs extra ti me. PROBLEM SOLVING - SCORE: 6-CYNDIE MEMORY: MEMORY - STEP 1: Does the patient need help from a person or device, or need extra time to remember frequently encount ered people, daily routines, and executing requests? No. MEMORY - STEP 2: Does the patient have slight difficulty recognizing frequently encountered people, daily routines, or executing requests without the need for repetition or using self-initiated or environmental cues to remember? Yes. MEMORY - SCORE: 6-CYNDIE SIGNATURE PANEL: The following modified sections: Eating - Score, Grooming - Score, Bathing - Score, Dressing - Upper Body - Score, Dressing - Lower Body - Score, Toileting - Score, Bladder Management - Score, Bowel Man agement - Score, Transfers: Bed, Chair, Wheelchair - Score, Transfers: Toilet - Score, Transfers: Sia wer - Score, Transfers: Tub - Score, Locomotion: Walk - Score, Locomotion: Wheelchair - Score, Compre hension - Score, Expression - Score, Social Interaction - Score, Problem Solving - Score, Memory - Sc ore were [electronically] signed by Oriana [email or web address] on MonFeb 28 2018 13:40:17 GMT-0600 (Cent[facility] Standard Time)
--- NOTE | 2018-02-28 15:11 | FAST ---
ENCOUNTER DATE AND TIME: 02/28/2018 08:00 (WETLAND SCIENTIST) NAME JULEE KENNEY DATE OF : 1955 DATE OF ADMISSION: 02/19/2018 15:02 (WETLAND SCIENTIST) PHONE: AGE: 62 N# [id number] GENDER: Female ENCOUNTER PHYSICIAN: Dr. Mitul Collins M.D. ADMISSION DIAGNOSIS: - Orthopaedic Disorders 08 - Pelvic Fracture (08.3) Left Sacral Ala Insufficiency Fracture. EATING: Activity did not occur on this shift EATING - SCORE: 0-UNK GROOMING: Wash, rinse, and dry hands GROOMING - STEP 1: Does the patient require the assistance of a person or device, or need extra time when grooming? No. GROOMING - SCORE: 7-IND BATHING: Activity did not occur on this shift BATHING - SCORE: 0-UNK DRESSING - UPPER BODY: Activity did not occur on this shift ARTICLES SCORE Total number of steps: 0 DRESSING - UPPER BODY - SCORE: 0-UNK DRESSING - LOWER BODY: Activity did not occur on this shift ARTICLES SCORE Total number of steps: 0 DRESSING - LOWER BODY - SCORE: 0-UNK TOILETING: TOILETING - STEP 1: Does the patient require the assistance of a person or device, or need extra time with toileting? Yes . TOILETING - STEP 2: Does the patient require the assistance of a helper? Yes. TOILETING - STEP 3: How much assistance does the patient require from the helper? Hands-on assistance from the helper TOILETING - STEP 4: Of the 3 tasks: 1) Adjusting clothing prior to use, 2) Cleansing of perineal area, 3) Adjusting clot dameon after use; How many tasks does the patient perform WITHOUT assistance of the helper? Three tasks with steadying assistance from the helper TOILETING - SCORE: 4-MIN BLADDER MANAGEMENT: Activity did not occur on this shift BLADDER MANAGEMENT - SCORE: 7-IND BOWEL MANAGEMENT: Activity did not occur on this shift BOWEL MANAGEMENT - SCORE: 7-IND TRANSFERS: BED, CHAIR, WHEELCHAIR: Activity did not occur on this shift TRANSFERS: BED, CHAIR, WHEELCHAIR - SCORE: 0-UNK TRANSFERS: TOILET: TRANSFERS: TOILET - STEP 1: Does the patient require the assistance of a person or device, or need extra time with toilet transfe rs? Yes. TRANSFERS: TOILET - STEP 2: Does the patient require the assistance of a helper? Yes. TRANSFERS: TOILET - STEP 3: How much assistance does the patient require from the helper? Patient performs half or more of the tr ansferring tasks TRANSFERS: TOILET - STEP 4: Does the patient need only incidental help such as contact guard or steadying during toilet transfer? Yes. TRANSFERS: TOILET - SCORE: 4-MIN TRANSFERS: SHOWER: Activity did not occur on this shift TRANSFERS: SHOWER - SCORE: 0-UNK TRANSFERS: TUB: Activity did not occur on this shift TRANSFERS: TUB - SCORE: 0-UNK LOCOMOTION: WALK: Activity did not occur on this shift LOCOMOTION: WALK - SCORE: 0-UNK LOCOMOTION: WHEELCHAIR: Activity did not occur on this shift LOCOMOTION: WHEELCHAIR - SCORE: 0-UNK LOCOMOTION: STAIRS: Activity did not occur on this shift LOCOMOTION: STAIRS - SCORE: 0-UNK COMPREHENSION: COMPREHENSION: TYPE: Visual COMPREHENSION - STEP 1: Does the patient require help from a person or device, or need extra time to understand complex and a bstract ideas (such as current events, finances, discharge planning, medical issues, relationships, e tc)? No. COMPREHENSION - STEP 2: Does the patient need extra time, require an assistive device (such as glasses for visual comprehensi on or a hearing aid for auditory comprehension) or does s/he have mild difficulty understanding compl ex and abstract information? Yes. COMPREHENSION - SCORE: 6-CYNDIE EXPRESSION EXPRESSION: TYPE: Non-Vocal EXPRESSION - STEP 1: Does the patient require help from a person or device, or need extra time expressing complex and abst ract ideas (such as current events, finances, discharge planning, medical issues, relationships, etc) ? No. EXPRESSION - STEP 2: Does the patient need extra time, require an assistive device (such as augmentive communication syste m or a communication board), OR does s/he have mild difficulty expressing complex and abstract ideas (including mild dysarthria or mild word-find problems)? No. EXPRESSION - SCORE: 7-IND SOCIAL INTERACTION: SOCIAL INTERACTION - STEP 1: Does the patient require a helper to interact with others in social and therapeutic situations? No. SOCIAL INTERACTION - STEP 2: Does the patient need extra time in social situations, OR does s/he interact with staff, other patien ts, and family members ONLY in structured environments, OR does s/he require medication for social in teraction? No. SOCIAL INTERACTION - SCORE: 7-IND PROBLEM SOLVING: PROBLEM SOLVING - STEP 1: Does the patient need help from a person or device, or need extra time to solve complex problems such as managing a checking account or confronting interpersonal problems? No. PROBLEM SOLVING - STEP 2: Does the patient require extra time to make decisions or solve problems, OR does s/he have slight dif ficulty reading, initiating, or self-correcting in unfamiliar situations? No. PROBLEM SOLVING - SCORE: 7-IND MEMORY: MEMORY - STEP 1: Does the patient need help from a person or device, or need extra time to remember frequently encount ered people, daily routines, and executing requests? No. MEMORY - STEP 2: Does the patient have slight difficulty recognizing frequently encountered people, daily routines, or executing requests without the need for repetition or using self-initiated or environmental cues to remember? No. MEMORY - SCORE: 7-IND SIGNATURE PANEL: The following modified sections: Eating - Score, Grooming - Score, Bathing - Score, Dressing - Upper Body - Score, Dressing - Lower Body - Score, Toileting - Score, Transfers: Bed, Chair, Wheelchair - S core, Transfers: Toilet - Score, Transfers: Shower - Score, Transfers: Tub - Score, Comprehension - S core, Expression - Score, Social Interaction - Score, Problem Solving - Score, Memory - Score were [e lectronically] signed by CIRO Getnile on MonFeb 28 2018 15:10:50 T-0600 ([facility] Time)
--- NOTE | 2018-02-28 15:55 | FAST ---
ENCOUNTER DATE AND TIME: 02/28/2018 08:00 (PULP MILL OPERATOR) NAME JULEE KENNEY DATE OF : 1955 DATE OF ADMISSION: 02/19/2018 15:02 (PULP MILL OPERATOR) PHONE: AGE: 62 N# [id number] GENDER: Female ENCOUNTER PHYSICIAN: Dr. Mitul Collins M.D. ADMISSION DIAGNOSIS: - Orthopaedic Disorders 08 - Pelvic Fracture (08.3) Left Sacral Ala Insufficiency Fracture. EATING: Activity did not occur on this shift EATING - SCORE: 0-UNK GROOMING: Activity did not occur on this shift GROOMING - SCORE: 0-UNK BATHING: Activity did not occur on this shift BATHING - SCORE: 0-UNK DRESSING - UPPER BODY: Activity did not occur on this shift Patient is not dressing in public clothing ARTICLES SCORE Total number of steps: 0 DRESSING - UPPER BODY - SCORE: 0-UNK DRESSING - LOWER BODY: Activity did not occur on this shift Patient is not dressing in public clothing ARTICLES SCORE Total number of steps: 0 DRESSING - LOWER BODY - SCORE: 0-UNK TOILETING: Activity did not occur on this shift TOILETING - SCORE: 0-UNK BLADDER MANAGEMENT: Activity did not occur on this shift BLADDER MANAGEMENT - SCORE: 7-IND BOWEL MANAGEMENT: Activity did not occur on this shift BOWEL MANAGEMENT - SCORE: 7-IND TRANSFERS: BED, CHAIR, WHEELCHAIR: TRANSFERS: BED, CHAIR, WHEELCHAIR - STEP 1: Does the patient require assistance of a person or device, or need extra time with bed, chair, or whe elchair transfers? Yes. TRANSFERS: BED, CHAIR, WHEELCHAIR - STEP 2: Does the patient require the assistance of a helper? Yes. TRANSFERS: BED, CHAIR, WHEELCHAIR - STEP 3: How much assistance does the patient require from the helper? Only supervision TRANSFERS: BED, CHAIR, WHEELCHAIR - SCORE: 5-SUP TRANSFERS: TOILET: Activity did not occur on this shift TRANSFERS: TOILET - SCORE: 0-UNK TRANSFERS: SHOWER: Activity did not occur on this shift TRANSFERS: SHOWER - SCORE: 0-UNK TRANSFERS: TUB: Activity did not occur on this shift TRANSFERS: TUB - SCORE: 0-UNK LOCOMOTION: WALK: LOCOMOTION: WALK - STEP 1: Does the patient need help from a person or device, or need extra time to walk 150 feet? Yes. LOCOMOTION: WALK - STEP 2: How much assistance does the patient require to walk a minimum of 150 feet? Patient walks less than 1 50 feet - but more than 50 feet - with the assistance of only one helper LOCOMOTION: WALK - SCORE: 2-MAX LOCOMOTION: WHEELCHAIR: LOCOMOTION: WHEELCHAIR - STEP 1: Does the patient need help to go 150 feet in a wheelchair? Yes. LOCOMOTION: WHEELCHAIR - STEP 2: How much assistance does the patient need from the helper? Only supervision, cuing, or coaxing LOCOMOTION: WHEELCHAIR - SCORE: 5-SUP LOCOMOTION: STAIRS: Activity did not occur on this shift LOCOMOTION: STAIRS - SCORE: 0-UNK COMPREHENSION: COMPREHENSION - SCORE: 0-UNK EXPRESSION EXPRESSION - SCORE: 0-UNK SOCIAL INTERACTION: SOCIAL INTERACTION - SCORE: 0-UNK PROBLEM SOLVING: PROBLEM SOLVING - SCORE: 0-UNK MEMORY: MEMORY - SCORE: 0-UNK SIGNATURE PANEL: The following modified sections: Transfers: Bed, Chair, Wheelchair - Score, Transfers: Toilet - Score , Locomotion: Walk - Score, Locomotion: Wheelchair - Score, Locomotion: Stairs - Score were [electron lamont] signed by Kale Hollingsworth PT on MonFeb 28 2018 15:54:09 GMT-0600 (Central Standard Time)
[2018-02-28] MEDS ORDERED: MECLIZINE HCL 12.5 MG TAB PO PRN (16:13)
--- NOTE | 2018-02-28 17:35 | P.PN ---
Subjective Date of Service: 02/28/18 Subjective: No new changes Review of Systems 10-point ROS is otherwise unremarkable General: Other (dizziness) Physical Examination - Vital Signs Temperature: 96.7 F Blood Pressure: 173/70 Pulse: 60 Respirations: 20 Pulse Ox (%): 94 - Physical Exam General: Alert, In no apparent distress, Oriented x3, Obese HEENT: Atraumatic, PERRLA, EOMI Neck: Supple, JVD not distended Respiratory: Clear to auscultation bilaterally, Normal air movement Cardiovascular: No edema, Normal pulses, Regular rate/rhythm, Normal S1 S2 Gastrointestinal: Normal bowel sounds, Soft and benign, Non-distended, No tenderness Musculoskeletal: No clubbing, No tenderness Integumentary: No rashes Neurological: Normal speech, Normal strength at 5/5 x4 extr, Normal tone, Normal affect - Studies Laboratory Data (last 24 hrs) 02/28/18 07:13: Sodium 143, Potassium 5.4 H, BUN 52 H, Creatinine 2.62 H, Glucose 95 02/28/18 06:01: Uric Acid 5.9, Phosphorus 4.5, Magnesium 2.7 H Assessment And Plan - Plan [facility] Live Progress Note Patient Name: JULEE KENNEY A/P Acute kidney injury superimposed on CKD (Acute 02/15/18) N17.9, N18.9 Closed minimally displaced zone I fracture of sacrum (Acute) S32.111A Diabetes mellitus (Acute 02/15/18) E11.9 Fall (Acute 02/15/18) W19.XXXA Hyperkalemia (Acute 02/15/18) E87.5 Resolved. Hypertension Case discussed with Dr Quiroga. IVFs DCd. Kayexelate for hyperkalemia. Monitor BMP. Pt is very sensitive to diuretics and IVFs. Creatnine worsened today. Back off of diuretics. - Code Status/Comfort Care Code Status Assessed: Yes
--- NOTE | 2018-02-28 19:08 | R.PN ---
ENCOUNTER DATE AND TIME: 02/28/2018 19:06 (BANQUET CHEF) NAME JULEE KENNEY DATE OF : 1955 DATE OF ADMISSION: 02/19/2018 15:02 (BANQUET CHEF) Left Sacral Ala Insufficiency FractureCHIEF COMPLAINT: Left sacral fracture SUBJECTIVE: Pt denied any depression. Pt denied any Shortness of Breath. Ambulated 1000' with standby assistance using a rolling walker. Self-propelled wheelchair 500' with s tandby assistance. Up and down 5 steps with contact guard assistance. Ambulated 500' with standby assistance using a rolling walker. Up and down 15 steps with standby assi stance. VITAL SIGNS Temperature: 97.8 F SBP/DBP: 173/70 Pulse: 60 Resp: 16 Elevated blood pressures. Will increase Lisinopril to 10 mg twice daily. MEDICATION ALLERGIES: PENICILLIN ENVIRONMENTAL ALLERGIES: None Known - Substance Allergies None Known - Other Allergies None Known NURSING: - Shower allowing shower - Lab Results blood Sugar Check ACHS - Skin care per protocol ACTIVITIES OOB only with supervision THERAPIES: - Occupational Therapy Evaluate and Treat. - Physical Therapy Evaluate and Treat. PHYSICAL EXAM - Gen Alert and awake Lying in bed No apparent distress Oriented to: person, time, and place - Skin No breakdowns No abnormalities - Eyes No abnormalities - ENMT No abnormalities - Neck No abnormalities - CVS RRR - Chest No abnormalities - Abd + bowel sounds - GI Soft Deferred - No abnormalities - Ext No significant edema. - MSK 4/5 weakness in both lower extremities. - Neuro No focal deficits - Psych No abnormalities ASSESSMENT: Pt. is a 62 yo Right-handed white female.On 02/14/2018 she was admitted to [facility] with diagnosis Left Sacral Ala Insufficiency Fracture.Her impairment category is Orthopaedic D isorders 08 - Pelvic Fracture (08.3).Pre-morbidly, Pt. was independent/mod-I in Transfers Control, C ommunication, Social Cognition, Self-Care, Locomotion, and Sphincter Control; and she had good Sphinc ter Control.Currently, she has deficits of Safety Awareness, Transfers Control, Balance, Locomotion, Endurance, and Self-Care.Pt. is now referred to [facility] for acute in-patien t rehabilitation in order to maximize patient's functional independence in activities of daily living , strength, ROM, and mobility.- Rehab Goal Patient has realistic goal of being discharged at assistance level 6-Bushra to reside at Home with Fam roxana/Relatives. MDM/PLAN: - Physical Therapy Decreased range of motion - to improve, our physical therapists will perform initial evaluation of p t's status upon admission and devise an individualized program for increasing patient's Range of Milind on. Gait dysfunction - to improve, our physical therapists will perform initial evaluation of pt's statu s upon admission and devise an individualized program for Gait Training, and Wheel Chair mobility Inability to transfer - to improve, our physical therapists will perform initial evaluation of pt's status upon admission and devise an individualized program for Bed mobility Need for home safety evaluation - to improve, our physical therapists will perform initial evaluatio n of pt's status upon admission and devise an individualized program for Home Evaluation Need in caregiver upon discharge - to improve, our physical therapists will perform initial evaluati on of pt's status upon admission and devise an individualized program for Caregiver Training New precaution - to improve, our physical therapists will perform initial evaluation of pt's status upon admission and devise an individualized program for Patient precaution education Poor balance - to improve, our physical therapists will perform initial evaluation of pt's status up on admission and devise an individualized program for Balance Training Poor endurance - to improve, our physical therapists will perform initial evaluation of pt's status upon admission and devise an individualized program for Endurance Training Weakness - to improve, our physical therapists will perform initial evaluation of pt's status upon a dmission and devise an individualized program for Aquatic Therapy, Neuromuscular Reeducation, and Str engthening Achieving independence - to improve, our physical therapists will perform initial evaluation of pt's status upon admission and devise an individualized program for Community Reintegration Activities - Occupational Therapy ADL deficits - to improve, our occupation therapists will perform initial evaluation of pt's status upon admission and devise an individualized program for Bathing, Bed mobility, Community Reintegratio n, Cooking, Dressing, Eating, Fine Motor Skills, Grooming, Homemaking, Kitchen Mobility, Laundry, Pat ient Education, Safety Awareness, Splinting - Positioning, Transfers(Toilet, Tub, Shower), and Wheel Chair Management Need for caregivers non medical - to improve, our occupation therapists will perform initial evaluation of pt's status upon admission and devise an individualized program for Caregiver Training Weakness - to improve, our occupation therapists will perform initial evaluation of pt's status upon admission and devise an individualized program for Aquatic Therapy, Balance, Endurance, UE ROM, and UE strengthening - Diet Type Continue Regular - Diet - Liquid Texture Continue Regular - Tube Feed Continue N/A - Lab Results blood Sugar Check ACHS - Skin care per protocol - Diet - Solid Texture Continue Regular - Shower allowing shower FUNCTIONAL STATUS: UPDATED AT WEEKLY TEAM CONFERENCE - Bladder Same accident frequency: 7-Ind - No accidents in the past 7 days - Bowel Same accident frequency: 7-Ind - No accidents in the past 7 days - Walking Same score based on distance walked: 2(50-149ft) - Wheelchair Same score based on distance traveled: 0(N/A) FUNCTIONAL STATUS: - Self-Care A. Eating Bushra B. Grooming Ind C. Bathing sup D. Dressing - Upper sup E. Dressing - Lower sup F. Toileting Sherry - Sphincter Control G: Bladder control Ind H: Bowel control Ind - Transfers Control I. Bed/Chair/Wheelchair Sherry J. Toilet Sherry K. Tub/Shower ADNO - Locomotion L. Walk/Wheelchair (C) Sherry L. Walk/Wheelchair (W) Sherry M. Stairs ADNO - Communication N. Comprehension (B) Ind O. Expression (B) Ind - Social Cognition P. Social Interaction Ind Q. Problem Solving Ind R. Memory Ind - Endurance Fair - Balance Fair - Safety Awareness Fair CURRENT FUNC. DEFICITS: Safety Awareness, Transfers Control, Balance, Locomotion, Endurance, and Self-Care SIGNATURE PANEL: (BANQUET CHEF)
--- NOTE | 2018-02-28 20:16 | PN ---
Date of Progress Note: 02/28/2018 NEPHROLOGY PROGRESS NOTE Subjective: The patient was seen and examined. She is feeling very dizzy when she tries to get up, feeling groggy and sleepy. Objective: Vital Signs: Have been reviewed. Blood pressure continues to be high in the 170s range. Temperature of 96.7, pulse rate of 55, respiratory rate of 20. General: She appears in no acute distress. HEENT: Atraumatic head. Lungs: Auscultation of lungs revealed bilateral equal air entry. Heart: Auscultation of the heart revealed regular rate and rhythm. Abdomen: Obese and nontender. Extremities: With 2+ edema noted. Laboratory Data: Sodium of 143, potassium of 5.4, chloride of 108, BUN of 52 and creatinine of 2.6, which seems to be slightly worse compared to a creatinine of 2.4 noted 2 days ago and 1.8 prior to th at. Current Medications: Lisinopril 5 mg b.i.d., Tylenol, aspirin, calcitriol, Coreg 12.5 mg b.i.d., vit reid D, Plavix, ferrous sulfate, folic acid, gabapentin 300 mg b.i.d., glipizide 2.5 mg daily, hydral azine 25 mg t.i.d., melatonin, paroxetine, Kayexalate 1 time dose and tramadol. Impression: 1.Acute on chronic renal insufficiency with underlying cardiorenal syndrome. The patient's creatini ne is slightly worse today. We will go ahead and discontinue the lisinopril at this time. She will not benefit from IV fluids secondary to uncontrolled hypertension and also secondary to volume overlo ad and lower extremity edema. We will let her renal function equilibrate on its own. We will hold o ff on any diuretics at this time and will follow up on renal function again. 2.Dizziness. Etiology unclear, likely related to inner ear dysfunction versus deconditioning. 3.Hypertension. Seems uncontrolled, we will go ahead and increase the hydralazine to 50 mg 3 times a day and we will discontinue lisinopril and continue with the Coreg for right now. Plan: Overall, the patient is doing okay. We are concerned about the worsening renal function but w e would like to equilibrate the renal function without the need for IV fluids at this time secondary to volume overload as well as her uncontrolled hypertension. We will follow up again on labs again i n a few days and adjust as needed. For her anemia, she continues to be on p.o. iron. I will go ahea d and order iron panel with the next lab draw and follow up closely. SEUN/SARA Voice ID: [id number] Report ID: [id number]
[2018-02-28] MEDS: DOCUSATE NA/SENNA CONC 1 TAB PO SCH (20:58)
[2018-02-28] MEDS: ATORVASTATIN 20 MG TAB PO SCH (20:58)
[2018-02-28 22:02] LABS: Urine Appearance CLEAR; Urine Bilirubin NEGATIVE (NEG); Urine Blood NEGATIVE (NEG); Urine Color YELLOW; Urine Glucose NEGATIVE (NEG); Urine Protein 2+ (NEG); Urine Specific Gravity <=1.005 (1.005-1.030); Urine Urobilinogen 0.2 mg/dL (0.2-1.0)
[2018-02-28 22:19] LABS: Urine Bacteria <20 /HPF (<20); Urine Culture Reflex Order NOT NEEDED; Urine Mucus 1+ /HPF (NONE SEEN); Urine RBC <5 /HPF (NONE SEEN)
--- NOTE | 2018-03-01 03:08 | FAST ---
SHIFT START DATE/TIME: 02/28/2018 19:00 (INCOME TAX CONSULTANT) SHIFT END DATE/TIME: 03/01/2018 07:00 (INCOME TAX CONSULTANT) NAME JULEE KENNEY DATE OF : 1955 DATE OF ADMISSION: 02/19/2018 15:02 (INCOME TAX CONSULTANT) PHONE: AGE: 62 SSN# [id number] GENDER: Female ENCOUNTER PHYSICIAN: Dr. Mitul Collins M.D. ADMISSION DIAGNOSIS: - Orthopaedic Disorders 08 - Pelvic Fracture (08.3) Left Sacral Ala Insufficiency Fracture. EATING: Activity did not occur on this shift EATING - SCORE: 0-UNK GROOMING: Activity did not occur on this shift GROOMING - SCORE: 0-UNK BATHING: Activity did not occur on this shift BATHING - SCORE: 0-UNK DRESSING - UPPER BODY: Patient is not dressing in public clothing ARTICLES SCORE Total number of steps: 0 DRESSING - UPPER BODY - SCORE: 0-UNK DRESSING - LOWER BODY: Patient is not dressing in public clothing ARTICLES SCORE Total number of steps: 0 DRESSING - LOWER BODY - SCORE: 0-UNK TOILETING: TOILETING - STEP 1: Does the patient require the assistance of a person or device, or need extra time with toileting? Yes . TOILETING - STEP 2: Does the patient require the assistance of a helper? Yes. TOILETING - STEP 3: How much assistance does the patient require from the helper? Hands-on assistance from the helper TOILETING - STEP 4: Of the 3 tasks: 1) Adjusting clothing prior to use, 2) Cleansing of perineal area, 3) Adjusting clot dameon after use; How many tasks does the patient perform WITHOUT assistance of the helper? Three tasks with steadying assistance from the helper TOILETING - SCORE: 4-MIN BLADDER MANAGEMENT: BLADDER MANAGEMENT - STEP 1: Does the patient control the bladder completely and intentionally without equipment or devices or med ications, and is always continent? No. BLADDER MANAGEMENT - STEP 2: Does the patient require the assistance of a helper? Yes. BLADDER MANAGEMENT - STEP 3: How much assistance does the patient require from the helper? Only supervision, stand-by, cuing, or c oaxing BLADDER MANAGEMENT - SCORE: 5-SUP BOWEL MANAGEMENT: Activity did not occur on this shift BOWEL MANAGEMENT - SCORE: 7-IND TRANSFERS: BED, CHAIR, WHEELCHAIR: TRANSFERS: BED, CHAIR, WHEELCHAIR - STEP 1: Does the patient require assistance of a person or device, or need extra time with bed, chair, or whe elchair transfers? Yes. TRANSFERS: BED, CHAIR, WHEELCHAIR - STEP 2: Does the patient require the assistance of a helper? Yes. TRANSFERS: BED, CHAIR, WHEELCHAIR - STEP 3: How much assistance does the patient require from the helper? Lifting of the legs TRANSFERS: BED, CHAIR, WHEELCHAIR - STEP 4: How many legs does the patient require the helper to lift? both legs TRANSFERS: BED, CHAIR, WHEELCHAIR - SCORE: 3-MOD TRANSFERS: TOILET: TRANSFERS: TOILET - STEP 1: Does the patient require the assistance of a person or device, or need extra time with toilet transfe rs? Yes. TRANSFERS: TOILET - STEP 2: Does the patient require the assistance of a helper? Yes. TRANSFERS: TOILET - STEP 3: How much assistance does the patient require from the helper? Patient performs half or more of the tr ansferring tasks TRANSFERS: TOILET - STEP 4: Does the patient need only incidental help such as contact guard or steadying during toilet transfer? Yes. TRANSFERS: TOILET - SCORE: 4-MIN TRANSFERS: SHOWER: Activity did not occur on this shift TRANSFERS: SHOWER - SCORE: 0-UNK TRANSFERS: TUB: Activity did not occur on this shift TRANSFERS: TUB - SCORE: 0-UNK LOCOMOTION: WALK: Activity did not occur on this shift LOCOMOTION: WALK - SCORE: 0-UNK LOCOMOTION: WHEELCHAIR: Activity did not occur on this shift LOCOMOTION: WHEELCHAIR - SCORE: 0-UNK COMPREHENSION: COMPREHENSION: TYPE: Both COMPREHENSION - STEP 1: Does the patient require help from a person or device, or need extra time to understand complex and a bstract ideas (such as current events, finances, discharge planning, medical issues, relationships, e tc)? No. COMPREHENSION - STEP 2: Does the patient need extra time, require an assistive device (such as glasses for visual comprehensi on or a hearing aid for auditory comprehension) or does s/he have mild difficulty understanding compl ex and abstract information? Yes. COMPREHENSION - SCORE: 6-CYNDIE EXPRESSION EXPRESSION: TYPE: Both EXPRESSION - STEP 1: Does the patient require help from a person or device, or need extra time expressing complex and abst ract ideas (such as current events, finances, discharge planning, medical issues, relationships, etc) ? No. EXPRESSION - STEP 2: Does the patient need extra time, require an assistive device (such as augmentive communication syste m or a communication board), OR does s/he have mild difficulty expressing complex and abstract ideas (including mild dysarthria or mild word-find problems)? No. EXPRESSION - SCORE: 7-IND SOCIAL INTERACTION: SOCIAL INTERACTION - STEP 1: Does the patient require a helper to interact with others in social and therapeutic situations? No. SOCIAL INTERACTION - STEP 2: Does the patient need extra time in social situations, OR does s/he interact with staff, other patien ts, and family members ONLY in structured environments, OR does s/he require medication for social in teraction? Yes, patient needs extra time SOCIAL INTERACTION - SCORE: 6-CYNDIE PROBLEM SOLVING: PROBLEM SOLVING - STEP 1: Does the patient need help from a person or device, or need extra time to solve complex problems such as managing a checking account or confronting interpersonal problems? No. PROBLEM SOLVING - STEP 2: Does the patient require extra time to make decisions or solve problems, OR does s/he have slight dif ficulty reading, initiating, or self-correcting in unfamiliar situations? Yes, patient needs extra ti me. PROBLEM SOLVING - SCORE: 6-CYNDIE MEMORY: MEMORY - STEP 1: Does the patient need help from a person or device, or need extra time to remember frequently encount ered people, daily routines, and executing requests? No. MEMORY - STEP 2: Does the patient have slight difficulty recognizing frequently encountered people, daily routines, or executing requests without the need for repetition or using self-initiated or environmental cues to remember? Yes. MEMORY - SCORE: 6-CYNDIE SIGNATURE PANEL: The following modified sections: Eating - Score, Grooming - Score, Dressing - Upper Body - Score, Arash ssing - Lower Body - Score, Toileting - Score, Bladder Management - Score, Bowel Management - Score, Transfers: Bed, Chair, Wheelchair - Score, Transfers: Toilet - Score, Transfers: Shower - Score, Monsalve sfers: Tub - Score, Locomotion: Walk - Score, Locomotion: Wheelchair - Score, Comprehension - Score, Expression - Score, Social Interaction - Score, Problem Solving - Score, Memory - Score were [electro nically] signed by Nila Kennedy CNA on MonMar 01 2018 03:07:17 GMT-0600 (Central Standard Time)
[2018-03-01] MEDS: CARVEDILOL 12.5 MG TAB PO SCH ×2 (05:02→17:47)
[2018-03-01 06:29] LABS: Absolute Lymphocytes (CBC) 1.3 K/uL (0.7-4.9); Absolute Monocytes 0.5 K/uL (0.1-1.3); Absolute Neutrophil 2.3 K/uL (1.8-8.0); Basophils % 0.9 % (0-1.3); Eosinophils % 3.4 % (0-4.4); Hematocrit 26.3 % (36.0-45.0); Lymphocytes % 30.3 % (15.3-44.8); MPV 8.7 fL (7.6-11.3); RBC Red Blood Cell Count 2.74 M/uL (3.86-4.86)
[2018-03-01 06:44] LABS: Albumin 2.9 g/dL (3.4-5.0); Potassium 5.5 mmol/L (3.5-5.1); Prealbumin 26.7 mg/dL (20-40)
[2018-03-01] MEDS: INSULIN -REGULAR HUMAN 50 UNIT/0.5 ML ML SQ SCH ×4 (07:15→21:00)
[2018-03-01] MEDS: XELJANZ 5 MG PO SCH (08:00)
[2018-03-01] MEDS ORDERED: FUROSEMIDE 40 MG TABLET PO SCH (08:00)
[2018-03-01] MEDS: PROMOD 30 ML DOSE PO SCH ×2 (08:00→20:00)
[2018-03-01] MEDS: CYANOCOBALAMIN 1,000 MCG TAB PO SCH (08:34)
[2018-03-01] MEDS: FOLIC ACID 1 MG TABLET PO SCH (08:34)
[2018-03-01] MEDS: FE SULF/FA/VIT B COMP & C TAB PO SCH (08:34)
[2018-03-01] MEDS: POLYETHYL GLY 3350 17 GM/DOSE PO SCH (08:34)
[2018-03-01] MEDS: CLOPIDOGREL 75 MG TABLET PO SCH (08:34)
[2018-03-01] MEDS: FERROUS SULFATE 325 MG TAB PO SCH (08:35)
[2018-03-01] MEDS: HYDROCODONE/APAP 5/325 MG TAB PO PRN ×2 (08:35→14:33)
[2018-03-01] MEDS: ASPIRIN EC 81 MG TAB PO SCH (08:35)
[2018-03-01] MEDS: GABAPENTIN 300 MG CAP PO SCH ×2 (08:35→21:59)
[2018-03-01] MEDS: VITAMIN D 5,000 UNIT CAP PO SCH (08:35)
[2018-03-01] MEDS: MAGNESIUM OXIDE 400 MG TAB PO SCH ×2 (08:35→21:59)
[2018-03-01] MEDS: CALCITROL 0.25 MCG CAP PO SCH (08:35)
[2018-03-01] MEDS: HYDRALAZINE HCL 25 MG TABLET PO SCH ×3 (08:36→21:59)
[2018-03-01] MEDS: MEMANTINE HCL 10 MG TABLET PO SCH ×2 (08:36→21:59)
[2018-03-01] MEDS: glipiZIDE 5 MG TAB PO SCH (08:36)
[2018-03-01] MEDS: PARoxetine HCl 10 MG TAB PO SCH (08:39)
[2018-03-01] MEDS ORDERED: SOD POLYSTYREN SUL 15 GM/60 ML UCUP PO ONE (09:09)
--- NOTE | 2018-03-01 15:19 | FAST ---
SHIFT START DATE/TIME: 03/01/2018 07:00 (SPECIAL EDUCATION ASSISTANT) SHIFT END DATE/TIME: 03/01/2018 19:00 (SPECIAL EDUCATION ASSISTANT) NAME JULEE KENNEY DATE OF : 1955 DATE OF ADMISSION: 02/19/2018 15:02 (SPECIAL EDUCATION ASSISTANT) PHONE: AGE: 62 SSN# [id number] GENDER: Female ENCOUNTER PHYSICIAN: Dr. Mitul Collins M.D. ADMISSION DIAGNOSIS: - Orthopaedic Disorders 08 - Pelvic Fracture (08.3) Left Sacral Ala Insufficiency Fracture. EATING: EATING - STEP 1: Does the patient require the assistance of a person or device, or need extra time when eating? Yes. EATING - STEP 2: Does the patient require the assistance of a helper? Yes. EATING - STEP 3: Does the patient perform half or more of the eating tasks? Yes. EATING - STEP 4: Does the patient need only supervision, cuing, coaxing OR help to apply an orthosis OR help to cut fo od, open containers, pour liquids, or butter bread? Yes. EATING - SCORE: 5-SUP GROOMING: Comb/brush hair Wash, rinse, and dry face Wash, rinse, and dry hands GROOMING - STEP 1: Does the patient require the assistance of a person or device, or need extra time when grooming? Yes. GROOMING - STEP 2: Does the patient require the assistance of a helper? No. The patient only requires an assistive devic e, OR takes more than reasonable time to groom, OR there is a concern for safety as the patient groom s GROOMING - SCORE: 6-CYNDIE BATHING: Activity did not occur on this shift BATHING - SCORE: 0-UNK DRESSING - UPPER BODY: Activity did not occur on this shift ARTICLES SCORE Total number of steps: 0 DRESSING - UPPER BODY - SCORE: 0-UNK DRESSING - LOWER BODY: Activity did not occur on this shift ARTICLES SCORE Total number of steps: 0 DRESSING - LOWER BODY - SCORE: 0-UNK TOILETING: Activity did not occur on this shift TOILETING - SCORE: 0-UNK BLADDER MANAGEMENT: BLADDER MANAGEMENT - STEP 1: Does the patient control the bladder completely and intentionally without equipment or devices or med ications, and is always continent? Yes. BLADDER MANAGEMENT - SCORE: 7-IND BLADDER MANAGEMENT - FREQUENCY OF ACCIDENTS: BLADDER MANAGEMENT(FA) - STEP 1: How many accidents has the patient had during the current shift? 0 BOWEL MANAGEMENT: Activity did not occur on this shift BOWEL MANAGEMENT - SCORE: 7-IND BOWEL MANAGEMENT - FREQUENCY OF ACCIDENTS: BOWEL MANAGEMENT(FA) - STEP 1: How many accidents has the patient had during the current shift? 0 TRANSFERS: BED, CHAIR, WHEELCHAIR: TRANSFERS: BED, CHAIR, WHEELCHAIR - STEP 1: Does the patient require assistance of a person or device, or need extra time with bed, chair, or whe elchair transfers? Yes. TRANSFERS: BED, CHAIR, WHEELCHAIR - STEP 2: Does the patient require the assistance of a helper? Yes. TRANSFERS: BED, CHAIR, WHEELCHAIR - STEP 3: How much assistance does the patient require from the helper? Steadying/guiding assistance TRANSFERS: BED, CHAIR, WHEELCHAIR - SCORE: 4-MIN TRANSFERS: TOILET: TRANSFERS: TOILET - STEP 1: Does the patient require the assistance of a person or device, or need extra time with toilet transfe rs? Yes. TRANSFERS: TOILET - STEP 2: Does the patient require the assistance of a helper? Yes. TRANSFERS: TOILET - STEP 3: How much assistance does the patient require from the helper? Only supervision, cuing, coaxing, OR he lp to set out transfer equipment or to lock brakes and/or lift foot rests TRANSFERS: TOILET - SCORE: 5-SUP TRANSFERS: SHOWER: Activity did not occur on this shift TRANSFERS: SHOWER - SCORE: 0-UNK TRANSFERS: TUB: Activity did not occur on this shift TRANSFERS: TUB - SCORE: 0-UNK LOCOMOTION: WALK: Activity did not occur on this shift LOCOMOTION: WALK - SCORE: 0-UNK LOCOMOTION: WHEELCHAIR: Activity did not occur on this shift LOCOMOTION: WHEELCHAIR - SCORE: 0-UNK COMPREHENSION: COMPREHENSION: TYPE: Both COMPREHENSION - STEP 1: Does the patient require help from a person or device, or need extra time to understand complex and a bstract ideas (such as current events, finances, discharge planning, medical issues, relationships, e tc)? No. COMPREHENSION - STEP 2: Does the patient need extra time, require an assistive device (such as glasses for visual comprehensi on or a hearing aid for auditory comprehension) or does s/he have mild difficulty understanding compl ex and abstract information? Yes. COMPREHENSION - SCORE: 6-CYNDIE EXPRESSION EXPRESSION: TYPE: Both EXPRESSION - STEP 1: Does the patient require help from a person or device, or need extra time expressing complex and abst ract ideas (such as current events, finances, discharge planning, medical issues, relationships, etc) ? No. EXPRESSION - STEP 2: Does the patient need extra time, require an assistive device (such as augmentive communication syste m or a communication board), OR does s/he have mild difficulty expressing complex and abstract ideas (including mild dysarthria or mild word-find problems)? Yes. EXPRESSION - SCORE: 6-CYNDIE SOCIAL INTERACTION: SOCIAL INTERACTION - STEP 1: Does the patient require a helper to interact with others in social and therapeutic situations? No. SOCIAL INTERACTION - STEP 2: Does the patient need extra time in social situations, OR does s/he interact with staff, other patien ts, and family members ONLY in structured environments, OR does s/he require medication for social in teraction? Yes, patient needs extra time SOCIAL INTERACTION - SCORE: 6-CYNDIE PROBLEM SOLVING: PROBLEM SOLVING - STEP 1: Does the patient need help from a person or device, or need extra time to solve complex problems such as managing a checking account or confronting interpersonal problems? No. PROBLEM SOLVING - STEP 2: Does the patient require extra time to make decisions or solve problems, OR does s/he have slight dif ficulty reading, initiating, or self-correcting in unfamiliar situations? Yes, patient needs extra ti me. PROBLEM SOLVING - SCORE: 6-CYNDIE MEMORY: MEMORY - STEP 1: Does the patient need help from a person or device, or need extra time to remember frequently encount ered people, daily routines, and executing requests? No. MEMORY - STEP 2: Does the patient have slight difficulty recognizing frequently encountered people, daily routines, or executing requests without the need for repetition or using self-initiated or environmental cues to remember? Yes. MEMORY - SCORE: 6-CYNDIE SIGNATURE PANEL: The following modified sections: Eating - Score, Grooming - Score, Bathing - Score, Dressing - Upper Body - Score, Dressing - Lower Body - Score, Toileting - Score, Bladder Management - Score, Bowel Man agement - Score, Transfers: Bed, Chair, Wheelchair - Score, Transfers: Toilet - Score, Transfers: Sia wer - Score, Transfers: Tub - Score, Locomotion: Walk - Score, Locomotion: Wheelchair - Score, Compre hension - Score, Expression - Score, Social Interaction - Score, Problem Solving - Score, Memory - Sc ore were [electronically] signed by Milli Lang C.N.A. on MonMar 01 2018 15:17:29 GMT-0600 (Cent[place] Standard Time)
[2018-03-01 15:22] LABS: ALT/SGPT 15 U/L (12-78); AST/SGOT 21 U/L (15-37); Alkaline Phosphatase 109 U/L (45-117); Bilirubin Total 0.4 mg/dL (0.2-1.0)
[2018-03-01 15:23] LABS: Bilirubin Direct < 0.1 mg/dL (0-0.2); Protein, Total 6.8 g/dL (6.4-8.2)
--- NOTE | 2018-03-01 16:00 | P.PN ---
Subjective Date of Service: 03/01/18 Subjective: No new changes Review of Systems 10-point ROS is otherwise unremarkable Physical Examination - Vital Signs Temperature: 98.2 F Blood Pressure: 146/69 Pulse: 118 Respirations: 20 Pulse Ox (%): 95 - Physical Exam General: Alert, In no apparent distress, Oriented x3, Obese HEENT: Atraumatic, PERRLA, EOMI Neck: Supple, JVD not distended Respiratory: Clear to auscultation bilaterally, Normal air movement Cardiovascular: Normal pulses, Regular rate/rhythm, Normal S1 S2, Edema Gastrointestinal: Normal bowel sounds, Soft and benign, Non-distended, No tenderness Musculoskeletal: No tenderness Integumentary: No rashes, No erythema Neurological: Normal speech, Normal strength at 5/5 x4 extr, Normal tone, Normal affect - Studies Laboratory Data (last 24 hrs) 03/01/18 06:00: Total Bilirubin 0.4, AST 21, ALT 15, Alkaline Phosphatase 109 03/01/18 06:00: Sodium 143, Potassium 5.5 H, BUN 49 H, Creatinine 2.55 H, Glucose 94 03/01/18 06:00: WBC 4.2 L D, Hgb 8.8 L, Hct 26.3 L, Plt Count 256 Medications List Reviewed: Yes Assessment And Plan - Plan [facility] Live Progress Note Patient Name: JULEE KENNEY A/P Acute kidney injury superimposed on CKD (Acute 02/15/18) N17.9, N18.9 Closed minimally displaced zone I fracture of sacrum (Acute) S32.111A Diabetes mellitus (Acute 02/15/18) E11.9 Fall (Acute 02/15/18) W19.XXXA Hyperkalemia (Acute 02/15/18) E87.5 Hypertension Repeat Kayexelate for hyperkalemia. Monitor BMP. Pt getting echo today
--- NOTE | 2018-03-01 16:32 | FAST ---
ENCOUNTER DATE AND TIME: 03/01/2018 08:00 (BELLHOP) NAME JULEE KENNEY DATE OF : 1955 DATE OF ADMISSION: 02/19/2018 15:02 (BELLHOP) PHONE: AGE: 62 SSN# [id number] GENDER: Female ENCOUNTER PHYSICIAN: Dr. Mitul Collins M.D. ADMISSION DIAGNOSIS: - Orthopaedic Disorders 08 - Pelvic Fracture (08.3) Left Sacral Ala Insufficiency Fracture. EATING: Activity did not occur on this shift EATING - SCORE: 0-UNK GROOMING: Activity did not occur on this shift GROOMING - SCORE: 0-UNK BATHING: Activity did not occur on this shift BATHING - SCORE: 0-UNK DRESSING - UPPER BODY: Activity did not occur on this shift Patient is not dressing in public clothing ARTICLES SCORE Total number of steps: 0 DRESSING - UPPER BODY - SCORE: 0-UNK DRESSING - LOWER BODY: Activity did not occur on this shift Patient is not dressing in public clothing ARTICLES SCORE Total number of steps: 0 DRESSING - LOWER BODY - SCORE: 0-UNK TOILETING: Activity did not occur on this shift TOILETING - SCORE: 0-UNK BLADDER MANAGEMENT: Activity did not occur on this shift BLADDER MANAGEMENT - SCORE: 7-IND BOWEL MANAGEMENT: Activity did not occur on this shift BOWEL MANAGEMENT - SCORE: 7-IND TRANSFERS: BED, CHAIR, WHEELCHAIR: Activity did not occur on this shift TRANSFERS: BED, CHAIR, WHEELCHAIR - SCORE: 0-UNK TRANSFERS: TOILET: Activity did not occur on this shift TRANSFERS: TOILET - SCORE: 0-UNK TRANSFERS: SHOWER: Activity did not occur on this shift TRANSFERS: SHOWER - SCORE: 0-UNK TRANSFERS: TUB: Activity did not occur on this shift TRANSFERS: TUB - SCORE: 0-UNK LOCOMOTION: WALK: Activity did not occur on this shift LOCOMOTION: WALK - SCORE: 0-UNK LOCOMOTION: WHEELCHAIR: LOCOMOTION: WHEELCHAIR - STEP 1: Does the patient need help to go 150 feet in a wheelchair? No. LOCOMOTION: WHEELCHAIR - SCORE: 6-CYNDIE LOCOMOTION: STAIRS: Activity did not occur on this shift LOCOMOTION: STAIRS - SCORE: 0-UNK COMPREHENSION: COMPREHENSION - SCORE: 0-UNK EXPRESSION EXPRESSION - SCORE: 0-UNK SOCIAL INTERACTION: SOCIAL INTERACTION - SCORE: 0-UNK PROBLEM SOLVING: PROBLEM SOLVING - SCORE: 0-UNK MEMORY: MEMORY - SCORE: 0-UNK SIGNATURE PANEL: The following modified sections: Transfers: Bed, Chair, Wheelchair - Score, Transfers: Toilet - Score , Locomotion: Walk - Score, Locomotion: Wheelchair - Score, Locomotion: Stairs - Score were [electron ically] signed by Vincent Blanca PTA on MonMar 01 2018 16:31:03 GMT-0600 (Central Standard Time)
--- NOTE | 2018-03-01 18:40 | R.PN ---
ENCOUNTER DATE AND TIME: 03/01/2018 18:36 (MAIL CLERK BILLS) NAME JULEE KENNEY DATE OF : 1955 DATE OF ADMISSION: 02/19/2018 15:02 (MAIL CLERK BILLS) Left Sacral Ala Insufficiency FractureCHIEF COMPLAINT: Left sacral fracture SUBJECTIVE: Pt denied any depression. Pt denied any Shortness of Breath. Ambulated 1000' with standby assistance using a rolling walker. Self-propelled wheelchair 500' with s tandby assistance. Up and down 5 steps with contact guard assistance. Ambulated 500' with standby assistance using a rolling walker. Up and down 15 steps with standby assi stance. Labs have been reviewed and show mildly low but stable Hgb of 8.8. Elevated Creatinine followed by spitalist. VITAL SIGNS Temperature: 98.2 F SBP/DBP: 146/69 Pulse: 64 Resp: 16 Elevated blood pressures. Will increase Lisinopril to 10 mg twice daily. MEDICATION ALLERGIES: PENICILLIN ENVIRONMENTAL ALLERGIES: None Known - Substance Allergies None Known - Other Allergies None Known NURSING: - Shower allowing shower - Lab Results blood Sugar Check ACHS - Skin care per protocol ACTIVITIES OOB only with supervision THERAPIES: - Occupational Therapy Evaluate and Treat. - Physical Therapy Evaluate and Treat. PHYSICAL EXAM - Gen Alert and awake Lying in bed No apparent distress Oriented to: person, time, and place - Skin No breakdowns No abnormalities - Eyes No abnormalities - ENMT No abnormalities - Neck No abnormalities - CVS RRR - Chest No abnormalities - Abd + bowel sounds - GI Soft Deferred - No abnormalities - Ext No significant edema. - MSK 4/5 weakness in both lower extremities. - Neuro No focal deficits - Psych No abnormalities ASSESSMENT: Pt. is a 62 yo Right-handed white female.On 02/14/2018 she was admitted to [facility] with diagnosis Left Sacral Ala Insufficiency Fracture.Her impairment category is Orthopaedic D isorders 08 - Pelvic Fracture (08.3).Pre-morbidly, Pt. was independent/mod-I in Transfers Control, C ommunication, Social Cognition, Self-Care, Locomotion, and Sphincter Control; and she had good Sphinc ter Control.Currently, she has deficits of Safety Awareness, Transfers Control, Balance, Locomotion, Endurance, and Self-Care.Pt. is now referred to [facility] for acute in-patien t rehabilitation in order to maximize patient's functional independence in activities of daily living , strength, ROM, and mobility.- Rehab Goal Patient has realistic goal of being discharged at assistance level 6-Bushra to reside at Home with Fam roxana/Relatives. MDM/PLAN: - Physical Therapy Decreased range of motion - to improve, our physical therapists will perform initial evaluation of p t's status upon admission and devise an individualized program for increasing patient's Range of Milind on. Gait dysfunction - to improve, our physical therapists will perform initial evaluation of pt's statu s upon admission and devise an individualized program for Gait Training, and Wheel Chair mobility Inability to transfer - to improve, our physical therapists will perform initial evaluation of pt's status upon admission and devise an individualized program for Bed mobility Need for home safety evaluation - to improve, our physical therapists will perform initial evaluatio n of pt's status upon admission and devise an individualized program for Home Evaluation Need in caregiver upon discharge - to improve, our physical therapists will perform initial evaluati on of pt's status upon admission and devise an individualized program for Caregiver Training New precaution - to improve, our physical therapists will perform initial evaluation of pt's status upon admission and devise an individualized program for Patient precaution education Poor balance - to improve, our physical therapists will perform initial evaluation of pt's status up on admission and devise an individualized program for Balance Training Poor endurance - to improve, our physical therapists will perform initial evaluation of pt's status upon admission and devise an individualized program for Endurance Training Weakness - to improve, our physical therapists will perform initial evaluation of pt's status upon a dmission and devise an individualized program for Aquatic Therapy, Neuromuscular Reeducation, and Str engthening Achieving independence - to improve, our physical therapists will perform initial evaluation of pt's status upon admission and devise an individualized program for Community Reintegration Activities - Occupational Therapy ADL deficits - to improve, our occupation therapists will perform initial evaluation of pt's status upon admission and devise an individualized program for Bathing, Bed mobility, Community Reintegratio n, Cooking, Dressing, Eating, Fine Motor Skills, Grooming, Homemaking, Kitchen Mobility, Laundry, Pat ient Education, Safety Awareness, Splinting - Positioning, Transfers(Toilet, Tub, Shower), and Wheel Chair Management Need for manager care - to improve, our occupation therapists will perform initial evaluation of pt's status upon admission and devise an individualized program for Caregiver Training Weakness - to improve, our occupation therapists will perform initial evaluation of pt's status upon admission and devise an individualized program for Aquatic Therapy, Balance, Endurance, UE ROM, and UE strengthening - Diet Type Continue Regular - Diet - Liquid Texture Continue Regular - Tube Feed Continue N/A - Lab Results blood Sugar Check ACHS - Skin care per protocol - Diet - Solid Texture Continue Regular - Shower allowing shower FUNCTIONAL STATUS: UPDATED AT WEEKLY TEAM CONFERENCE - Bladder Same accident frequency: 7-Ind - No accidents in the past 7 days - Bowel Same accident frequency: 7-Ind - No accidents in the past 7 days - Walking Same score based on distance walked: 2(50-149ft) - Wheelchair Same score based on distance traveled: 0(N/A) FUNCTIONAL STATUS: - Self-Care A. Eating Bushra B. Grooming Ind C. Bathing sup D. Dressing - Upper sup E. Dressing - Lower sup F. Toileting Sherry - Sphincter Control G: Bladder control Ind H: Bowel control Ind - Transfers Control I. Bed/Chair/Wheelchair Sherry J. Toilet Sherry K. Tub/Shower ADNO - Locomotion L. Walk/Wheelchair (C) Sherry L. Walk/Wheelchair (W) Sherry M. Stairs ADNO - Communication N. Comprehension (B) Ind O. Expression (B) Ind - Social Cognition P. Social Interaction Ind Q. Problem Solving Ind R. Memory Ind - Endurance Fair - Balance Fair - Safety Awareness Fair CURRENT FUNC. DEFICITS: Safety Awareness, Transfers Control, Balance, Locomotion, Endurance, and Self-Care SIGNATURE PANEL: (MAIL CLERK BILLS)
--- NOTE | 2018-03-01 20:45 | P.PN ---
Date of Service: 03/01/18 Vital Signs Temp Pulse Resp BP Pulse Ox 98.2 F 64 20 183/80 H 95 03/01/18 16:00 03/01/18 17:47 03/01/18 16:00 03/01/18 17:47 03/01/18 16:00 Medications Acetaminophen (Tylenol -Extra Strength) 500 mg PO Q4H PRN PRN Reason: [id number] Stop: 03/21/18 15:05 Last Admin: 02/20/18 08:28 Dose: 500 mg Hydrocodone Bitart/Acetaminophen (Pitcher 5/325) 1 tab PO Q6HP PRN PRN Reason: PAIN SEVERE Stop: 03/21/18 15:05 Last Admin: 03/01/18 14:33 Dose: 1 tab Aspirin (Aspirin Ec) 81 mg PO DAILY [facility] Stop: 03/22/18 08:01 Last Admin: 03/01/18 08:35 Dose: 81 mg Atorvastatin Calcium (Lipitor) 20 mg PO BEDTIME [facility] Stop: 03/21/18 21:01 Last Admin: 02/28/18 20:58 Dose: 20 mg Bisacodyl (Dulcolax) 10 mg TX DAILY PRN PRN Reason: CONSTIPATION Stop: 03/26/18 07:23 Last Admin: 02/24/18 11:35 Dose: 10 mg Calcitriol (Rocaltrol) 0.5 mcg PO DAILY [facility]ES[facility] Stop: 03/30/18 08:01 Last Admin: 03/01/18 08:35 Dose: 0.5 mcg Carvedilol (Coreg) 12.5 mg PO BID 6AM 6PM [facility] Stop: 03/26/18 18:01 Last Admin: 03/01/18 17:47 Dose: 12.5 mg Cholecalciferol (Vitamin D 5,000 Iu Cap) 5,000 unit PO DAILY [facility] Stop: 03/30/18 08:01 Last Admin: 03/01/18 08:35 Dose: 5,000 unit Clopidogrel Bisulfate (Plavix) 75 mg PO DAILY [facility] Stop: 03/22/18 08:01 Last Admin: 03/01/18 08:34 Dose: 75 mg Cyanocobalamin (Vitamin B-12) 1,000 mcg PO DAILY [facility] Stop: 03/22/18 08:01 Last Admin: 03/01/18 08:34 Dose: 1,000 mcg Dextrose (Dextrose 50% Syringe) 12.5 gm IV PRN PRN; Protocol PRN Reason: HYPOGLYCEMIA Stop: 03/21/18 15:05 Diphenhydr/Magaldrate/Simeth/Lidoca (Magic Mouthwash) 15 ml PO QID PRN PRN Reason: SORE THROAT Stop: 03/21/18 15:05 Ferrous Sulfate (Feosol) 325 mg PO DAILY [facility] Stop: 03/22/18 08:01 Last Admin: 03/01/18 08:35 Dose: 325 mg Folic Acid (Folic Acid) 0.5 mg PO DAILY [facility] Stop: 03/22/18 08:01 Last Admin: 03/01/18 08:34 Dose: 0.5 mg Gabapentin (Neurontin) 300 mg PO BID [facility] Stop: 03/25/18 20:01 Last Admin: 03/01/18 08:35 Dose: 300 mg Glipizide (Glucotrol) 2.5 mg PO DAILY WITH BREAKFAST [facility] Stop: 03/31/18 08:01 Last Admin: 03/01/18 08:36 Dose: 2.5 mg Glucagon (Glucagen) 1 mg IM 1X PRN; Protocol PRN Reason: HYPOGLYCEMIA Stop: 03/21/18 15:05 Home Med (Home Med) 0 ea PO DAILY [facility] Stop: 03/25/18 08:01 Last Admin: 03/01/18 08:00 Dose: 1 ea Hydralazine HCl (Apresoline) 10 mg IV Q6HP PRN PRN Reason: HIGH BP Stop: 03/26/18 17:36 Hydralazine HCl (Apresoline) 50 mg PO TID [facility] Stop: 03/30/18 21:01 Last Admin: 03/01/18 13:26 Dose: 50 mg Insulin Human Regular (Novolin -R) 0 unit SQ ACHS [facility]; Protocol Stop: 03/21/18 16:31 Last Admin: 03/01/18 16:30 Dose: Not Given Lactulose (Cephulac) 20 gm PO BID PRN PRN Reason: CONSTIPATION Stop: 03/27/18 20:01 Magnesium Oxide (Mag 0x Tab) 400 mg PO BID [facility] Stop: 03/23/18 20:01 Last Admin: 03/01/18 08:35 Dose: 400 mg Meclizine HCl (Antivert) 25 mg PO TID PRN PRN Reason: DIZZINESS Stop: 03/30/18 21:01 Melatonin (Melatonin) 3 mg PO BEDTIME PRN PRN PRN Reason: INSOMNIA Stop: 03/21/18 16:13 Last Admin: 02/25/18 20:13 Dose: 3 mg Memantine (Namenda) 10 mg PO BID [facility] Stop: 03/21/18 20:01 Last Admin: 03/01/18 08:36 Dose: 10 mg Multivitamins/Iron (Hemocyte Plus) 1 tab PO DAILY WITH BREAKFAST [facility] Stop: 03/22/18 08:01 Last Admin: 03/01/18 08:34 Dose: 1 tab Nutritional Formula (Promod Liquid Protein) 30 ml PO BID [facility] Stop: 03/22/18 20:01 Last Admin: 03/01/18 08:00 Dose: Not Given Paroxetine HCl (Paxil) 40 mg PO DAILY [facility] Stop: 03/22/18 08:01 Last Admin: 03/01/18 08:39 Dose: 40 mg Polyethylene Glycol (Glycolax) 17 gm PO DAILY [facility] Stop: 03/27/18 08:01 Last Admin: 03/01/18 08:34 Dose: 17 gm Senna/Docusate Sodium (Senokot-S) 2 tab PO BEDTIME [facility] Stop: 03/21/18 21:01 Last Admin: 02/28/18 20:58 Dose: 2 tab Tramadol HCl (Ultram) 50 mg PO TIDP PRN PRN Reason: PAIN Stop: 03/21/18 15:05 Last Admin: 02/28/18 10:23 Dose: 50 mg Lab Results (last 24 hrs) 03/01/18 17:31: POC Glucose 110 03/01/18 17:08: POC Glucose 63 L 03/01/18 11:00: POC Glucose 173 H 03/01/18 07:03: POC Glucose 105 03/01/18 06:00: Total Bilirubin 0.4, Direct Bilirubin < 0.1, AST 21, ALT 15, Alkaline Phosphatase 109, Serum Total Protein 6.8, Albumin 3.0 L, Globulin 3.8 H , Albumin/Globulin Ratio 0.8 L 03/01/18 06:00: Sodium 143, Potassium 5.5 H, Chloride 108 H, Carbon Dioxide 28, BUN 49 H, Creatinine 2.55 H, Estimated GFR 19 L, Glucose 94, Calcium 8.9, Iron 47.0 L, TIBC 244 L, Transferrin 174 L, Transferrin % Sat 19.3 L, Albumin 2.9 L, Prealbumin 26.7 03/01/18 06:00: WBC 4.2 L D, RBC 2.74 L, Hgb 8.8 L, Hct 26.3 L, MCV 95.7, MCH 32.2, MCHC 33.7, RDW 15.2, Plt Count 256, MPV 8.7, Neutrophils % 54.4, Lymphocytes % 30.3, Monocytes % 11.0, Eosinophils % 3.4, Basophils % 0.9, Absolute Neutrophils 2.3, Absolute Lymphocytes 1.3, Absolute Monocytes 0.5, Absolute Eosinophils 0.1, Absolute Basophils 0.0 03/01/18 04:47: POC Glucose 92 02/28/18 21:00: Urine Color Yellow, Urine Appearance Clear, Urine pH 7.0, Ur Specific [place] <=1.005, Urine Ketones Negative, Urine Blood Negative, Urine Nitrite Negative, Urine Bilirubin Negative, Urine Urobilinogen 0.2, Ur Leukocyte Esterase Negative, Urine RBC <5, Urine WBC <5, Ur Squamous Epith Cells 5-10 H, Urine Bacteria <20, Urine Mucus 1+, Urine Culture Reflexed Not needed, Urine Glucose Negative, Urine Total Protein 2+ H 02/28/18 21:00: Ur Random Microalbumin 59.0 H, Urine Creatinine 14.0 L, Microalb /Creat Ratio 4214.3 H Microbiology Results 02/20/18 00:35 Clean Catch Urine [place] Count - Final <10,000 CFU/ML. 02/20/18 00:35 Clean Catch Urine - Final Assessment/ Plan: Nephrology CPS stable without CP or SOB. No pain. Persistent edema. Good appetite. Feeling confused today. No acute events overnight. Vitals, medications, blood work and imaging reviewed in the chart. NAD. MMM. Neck supple. CTA. RRR. Soft Abd. No C/C. LE Edema 1+. No rash. AA. Normal Speech. A/ ZOILA/ CKD III. Proteinuria. DM II with CKD. HTN with CKD. LE Edema. Anemia in chronic illness. Iron deficiency. Acidosis. Hypokalemia. Hyperkalemia. Hypocalcemia. AMS. P/ Continue current POC and Medications other than the changes listed below. AM labs. Daily weight. No NSAIDs. Low sodium diet. PT as tolerated. Check LFT today. Echocardiogram ordered. Will reconsider starting diuretics. Hold IVF.
[2018-03-01 21:24] VITALS: TEMP 97.2
[2018-03-01] MEDS: ATORVASTATIN 20 MG TAB PO SCH (21:59)
[2018-03-01] MEDS: DOCUSATE NA/SENNA CONC 1 TAB PO SCH (22:00)
[2018-03-02] MEDS: HYDROCODONE/APAP 5/325 MG TAB PO PRN ×2 (00:35→12:24)
--- NOTE | 2018-03-02 01:36 | FAST ---
SHIFT START DATE/TIME: 03/01/2018 19:00 (GRAPHICS INTERN) SHIFT END DATE/TIME: 03/02/2018 07:00 (GRAPHICS INTERN) NAME JULEE KENNEY DATE OF : 1955 DATE OF ADMISSION: 02/19/2018 15:02 (GRAPHICS INTERN) PHONE: AGE: 62 SSN# [id number] GENDER: Female ENCOUNTER PHYSICIAN: Dr. Mitul Collins M.D. ADMISSION DIAGNOSIS: - Orthopaedic Disorders 08 - Pelvic Fracture (08.3) Left Sacral Ala Insufficiency Fracture. EATING: Activity did not occur on this shift EATING - SCORE: 0-UNK GROOMING: Wash, rinse, and dry hands GROOMING - STEP 1: Does the patient require the assistance of a person or device, or need extra time when grooming? Yes. GROOMING - STEP 2: Does the patient require the assistance of a helper? Yes. GROOMING - STEP 3: How much assistance does the patient require from the helper? Only prior equipment preparation/set up from the helper GROOMING - SCORE: 5-SUP BATHING: Activity did not occur on this shift BATHING - SCORE: 0-UNK DRESSING - UPPER BODY: Patient is not dressing in public clothing ARTICLES SCORE Total number of steps: 0 DRESSING - UPPER BODY - SCORE: 0-UNK DRESSING - LOWER BODY: Patient is not dressing in public clothing ARTICLES SCORE Total number of steps: 0 DRESSING - LOWER BODY - SCORE: 0-UNK TOILETING: TOILETING - STEP 1: Does the patient require the assistance of a person or device, or need extra time with toileting? Yes . TOILETING - STEP 2: Does the patient require the assistance of a helper? Yes. TOILETING - STEP 3: How much assistance does the patient require from the helper? Hands-on assistance from the helper TOILETING - STEP 4: Of the 3 tasks: 1) Adjusting clothing prior to use, 2) Cleansing of perineal area, 3) Adjusting clot dameon after use; How many tasks does the patient perform WITHOUT assistance of the helper? Three tasks with steadying assistance from the helper TOILETING - SCORE: 4-MIN BLADDER MANAGEMENT: BLADDER MANAGEMENT - STEP 1: Does the patient control the bladder completely and intentionally without equipment or devices or med ications, and is always continent? No. BLADDER MANAGEMENT - STEP 2: Does the patient require the assistance of a helper? Yes. BLADDER MANAGEMENT - STEP 3: How much assistance does the patient require from the helper? Only supervision, stand-by, cuing, or c oaxing BLADDER MANAGEMENT - SCORE: 5-SUP BOWEL MANAGEMENT: BOWEL MANAGEMENT - STEP 1: Does the patient control bowels completely and intentionally without equipment devices or medications AND is always continent? No. BOWEL MANAGEMENT - STEP 2: Does the patient require the assistance of a helper? No, patient requires medication for control such as stool softeners, suppositories, laxatives, enemas, or OTC medications BOWEL MANAGEMENT - SCORE: 6-CYNDIE TRANSFERS: BED, CHAIR, WHEELCHAIR: TRANSFERS: BED, CHAIR, WHEELCHAIR - STEP 1: Does the patient require assistance of a person or device, or need extra time with bed, chair, or whe elchair transfers? Yes. TRANSFERS: BED, CHAIR, WHEELCHAIR - STEP 2: Does the patient require the assistance of a helper? Yes. TRANSFERS: BED, CHAIR, WHEELCHAIR - STEP 3: How much assistance does the patient require from the helper? Lifting of the legs TRANSFERS: BED, CHAIR, WHEELCHAIR - STEP 4: How many legs does the patient require the helper to lift? both legs TRANSFERS: BED, CHAIR, WHEELCHAIR - SCORE: 3-MOD TRANSFERS: TOILET: TRANSFERS: TOILET - STEP 1: Does the patient require the assistance of a person or device, or need extra time with toilet transfe rs? Yes. TRANSFERS: TOILET - STEP 2: Does the patient require the assistance of a helper? Yes. TRANSFERS: TOILET - STEP 3: How much assistance does the patient require from the helper? Patient performs half or more of the tr ansferring tasks TRANSFERS: TOILET - STEP 4: Does the patient need only incidental help such as contact guard or steadying during toilet transfer? Yes. TRANSFERS: TOILET - SCORE: 4-MIN TRANSFERS: SHOWER: Activity did not occur on this shift TRANSFERS: SHOWER - SCORE: 0-UNK TRANSFERS: TUB: Activity did not occur on this shift TRANSFERS: TUB - SCORE: 0-UNK LOCOMOTION: WALK: Activity did not occur on this shift LOCOMOTION: WALK - SCORE: 0-UNK LOCOMOTION: WHEELCHAIR: Activity did not occur on this shift LOCOMOTION: WHEELCHAIR - SCORE: 0-UNK COMPREHENSION: COMPREHENSION: TYPE: Both COMPREHENSION - STEP 1: Does the patient require help from a person or device, or need extra time to understand complex and a bstract ideas (such as current events, finances, discharge planning, medical issues, relationships, e tc)? No. COMPREHENSION - STEP 2: Does the patient need extra time, require an assistive device (such as glasses for visual comprehensi on or a hearing aid for auditory comprehension) or does s/he have mild difficulty understanding compl ex and abstract information? Yes. COMPREHENSION - SCORE: 6-CYNDIE EXPRESSION EXPRESSION: TYPE: Both EXPRESSION - STEP 1: Does the patient require help from a person or device, or need extra time expressing complex and abst ract ideas (such as current events, finances, discharge planning, medical issues, relationships, etc) ? No. EXPRESSION - STEP 2: Does the patient need extra time, require an assistive device (such as augmentive communication syste m or a communication board), OR does s/he have mild difficulty expressing complex and abstract ideas (including mild dysarthria or mild word-find problems)? No. EXPRESSION - SCORE: 7-IND SOCIAL INTERACTION: SOCIAL INTERACTION - STEP 1: Does the patient require a helper to interact with others in social and therapeutic situations? No. SOCIAL INTERACTION - STEP 2: Does the patient need extra time in social situations, OR does s/he interact with staff, other patien ts, and family members ONLY in structured environments, OR does s/he require medication for social in teraction? Yes, patient needs extra time SOCIAL INTERACTION - SCORE: 6-CYNDIE PROBLEM SOLVING: PROBLEM SOLVING - STEP 1: Does the patient need help from a person or device, or need extra time to solve complex problems such as managing a checking account or confronting interpersonal problems? No. PROBLEM SOLVING - STEP 2: Does the patient require extra time to make decisions or solve problems, OR does s/he have slight dif ficulty reading, initiating, or self-correcting in unfamiliar situations? Yes, patient needs extra ti me. PROBLEM SOLVING - SCORE: 6-CYNDIE MEMORY: MEMORY - STEP 1: Does the patient need help from a person or device, or need extra time to remember frequently encount ered people, daily routines, and executing requests? No. MEMORY - STEP 2: Does the patient have slight difficulty recognizing frequently encountered people, daily routines, or executing requests without the need for repetition or using self-initiated or environmental cues to remember? Yes. MEMORY - SCORE: 6-CYNDIE SIGNATURE PANEL: The following modified sections: Eating - Score, Grooming - Score, Dressing - Upper Body - Score, Arash ssing - Lower Body - Score, Toileting - Score, Bladder Management - Score, Bowel Management - Score, Transfers: Bed, Chair, Wheelchair - Score, Transfers: Toilet - Score, Transfers: Shower - Score, Monsalve sfers: Tub - Score, Locomotion: Walk - Score, Locomotion: Wheelchair - Score, Comprehension - Score, Expression - Score, Social Interaction - Score, Problem Solving - Score, Memory - Score were [electro nically] signed by Nila Kennedy CNA on MonMar 02 2018 01:35:31 GMT-0600 (Central Standard Time)
[2018-03-02] MEDS: CARVEDILOL 12.5 MG TAB PO SCH (05:16)
[2018-03-02 07:01] LABS: Absolute Lymphocytes (CBC) 1.2 K/uL (0.7-4.9); Absolute Monocytes 0.4 K/uL (0.1-1.3); Absolute Neutrophil 2.3 K/uL (1.8-8.0); Basophils % 0.6 % (0-1.3); Eosinophils % 3.7 % (0-4.4); Hematocrit 26.8 % (36.0-45.0); Lymphocytes % 28.9 % (15.3-44.8); MPV 8.6 fL (7.6-11.3); Monocytes % 10.3 % (3.3-12.3); RBC Red Blood Cell Count 2.76 M/uL (3.86-4.86)
[2018-03-02 07:11] LABS: Magnesium 2.9 mg/dL (1.8-2.4); Phosphorus 5.7 mg/dL (2.5-4.9); Potassium 5.4 mmol/L (3.5-5.1); Uric Acid 5.3 mg/dL (2.6-6.0)
[2018-03-02] MEDS: INSULIN -REGULAR HUMAN 50 UNIT/0.5 ML ML SQ SCH ×3 (07:30→16:28)
--- NOTE | 2018-03-02 07:52 | ECHO ---
HEIGHT: 5 ft 5 in WEIGHT: 187 lb 8 oz DATE OF STUDY: 03/01/[address]: Joel Darling DO 2-DIMENSIONAL: YES M.MODE: YES DOPPLER: YES COLOR FLOW: YES TDS: PORTABLE: YES DEFINITY: BUBBLE STUDY: DIAGNOSIS: CARDIOMEGALY, LOWER EXTREMITY EDEMA CARDIAC HISTORY: CATHERIZATION: YES SURGERY: NO PROSTHETIC VALVE: NO PACEMAKER: NO MEASUREMENTS (cm) DIASTOLIC (NORMALS) SYSTOLIC (NORMALS) IVSd 1.2 (0.6-1.2) LA Diam 4.4 (1.9-4.0) LVEF 54% LVIDd 5.2 (3.5-5.7) LVIDs 3.8 (2.0-3.5) %FS 28% LVPWd 1.5 (0.6-1.2) Ao Diam 2.8 (2.0-3.7) 2 DIMENSIONAL ASSESSMENT: RIGHT ATRIUM: NORMAL LEFT ATRIUM: DILATED RIGHT VENTRICLE: NORMAL LEFT VENTRICLE: LEFT VENTRICULAR HYPERTROPHY TRICUSPID VALVE: NORMAL MITRAL VALVE: MITRAL ANNULAR CALCIFICATION PULMONIC VALVE: NORMAL AORTIC VALVE: SCLEROSIS PERICARDIAL EFFUSION: NONE AORTIC ROOT: NORMAL LEFT VENTRICULAR WALL MOTION: NORMAL EJECTION FRACTION DOPPLER/COLOR FLOW: MILD TRICUSPID REGURGITATION COMMENTS: LEFT VENTRICULAR HYPERTROPHY. DECREASED LEFT VENTRICULAR COMPLIANCE. LEFT ATRIAL ENLARGEMENT. MITRAL ANNULAR CALCIFICATION. AORTIC SCLEROSIS. TECHNOLOGIST: TAMRA PATEL
[2018-03-02] MEDS: PROMOD 30 ML DOSE PO SCH (08:00)
[2018-03-02 08:18] VITALS: O2SAT 96
[2018-03-02] MEDS: GABAPENTIN 300 MG CAP PO SCH (08:28)
[2018-03-02] MEDS: CLOPIDOGREL 75 MG TABLET PO SCH (08:28)
[2018-03-02] MEDS: CALCITROL 0.25 MCG CAP PO SCH (08:28)
[2018-03-02] MEDS: FE SULF/FA/VIT B COMP & C TAB PO SCH (08:28)
[2018-03-02] MEDS: POLYETHYL GLY 3350 17 GM/DOSE PO SCH (08:28)
[2018-03-02] MEDS: CYANOCOBALAMIN 1,000 MCG TAB PO SCH (08:28)
[2018-03-02] MEDS: VITAMIN D 5,000 UNIT CAP PO SCH (08:30)
[2018-03-02] MEDS: FERROUS SULFATE 325 MG TAB PO SCH (08:30)
[2018-03-02] MEDS: XELJANZ 5 MG PO SCH (08:30)
[2018-03-02] MEDS: ASPIRIN EC 81 MG TAB PO SCH (08:30)
[2018-03-02] MEDS: glipiZIDE 5 MG TAB PO SCH (08:30)
[2018-03-02] MEDS: MAGNESIUM OXIDE 400 MG TAB PO SCH (08:30)
[2018-03-02] MEDS: FOLIC ACID 1 MG TABLET PO SCH (08:31)
[2018-03-02] MEDS: HYDRALAZINE HCL 25 MG TABLET PO SCH ×2 (08:31→13:55)
[2018-03-02] MEDS: MEMANTINE HCL 10 MG TABLET PO SCH (08:31)
[2018-03-02] MEDS: PARoxetine HCl 10 MG TAB PO SCH (08:32)
--- NOTE | 2018-03-02 09:25 | P.RH.PN ---
Estimated Length of Stay: 12 Expected Discharge Date: 03/03/18 Discharge Disposition Plan: Home Family Support: Yes [facility] Goal: Mobility, Transfers, Self Care Vital Signs: Last Vital Signs Temp 97.2 F 03/01/18 20:00 Pulse 56 03/02/18 05:16 Resp 16 03/01/18 20:00 BP 168/91 H 03/02/18 05:16 Pulse Ox 96 03/01/18 20:00 Laboratory: Laboratory Last Values WBC 4.1 K/uL (4.3-10.9) L 03/02/18 06:19 RBC 2.76 M/uL (3.86-4.86) L 03/02/18 06:19 Hgb 8.6 g/dL (12.0-15.0) L 03/02/18 06:19 Hct 26.8 % (36.0-45.0) L 03/02/18 06:19 MCV 97.0 fL (80-100) 03/02/18 06:19 MCH 31.2 pg (27.0-35.0) 03/02/18 06:19 MCHC 32.2 g/dL (32.0-36.0) 03/02/18 06:19 RDW 14.8 % (12.1-15.2) 03/02/18 06:19 Plt Count 210 K/uL (152-406) 03/02/18 06:19 MPV 8.6 fL (7.6-11.3) 03/02/18 06:19 Neutrophils % 56.5 % (41.7-73.7) 03/02/18 06:19 Lymphocytes % 28.9 % (15.3-44.8) 03/02/18 06:19 Monocytes % 10.3 % (3.3-12.3) 03/02/18 06:19 Eosinophils % 3.7 % (0-4.4) 03/02/18 06:19 Basophils % 0.6 % (0-1.3) 03/02/18 06:19 Absolute Neutrophils 2.3 K/uL (1.8-8.0) 03/02/18 06:19 Segmented Neutrophils 50 % (40-80) 02/23/18 06:11 Absolute Lymphocytes 1.2 K/uL (0.7-4.9) 03/02/18 06:19 Lymphocytes 34 % (15-42) 02/23/18 06:11 Monocytes 14 % (0-10) H 02/23/18 06:11 Absolute Monocytes 0.4 K/uL (0.1-1.3) 03/02/18 06:19 Absolute Eosinophils 0.2 K/uL (0-0.5) 03/02/18 06:19 Basophils 2 % (0-1) H 02/23/18 06:11 Absolute Basophils 0.0 K/uL (0-0.5) 03/02/18 06:19 Morphology Comment Not seen (NOT SEEN) 02/23/18 06:11 Sodium 142 mmol/L (136-145) 03/02/18 06:19 Potassium 5.4 mmol/L (3.5-5.1) H 03/02/18 06:19 Chloride 108 mmol/L (98-107) H 03/02/18 06:19 Carbon Dioxide 28 mmol/L (21-32) 03/02/18 06:19 BUN 49 mg/dL (7-18) H 03/02/18 06:19 Creatinine 2.53 mg/dL (0.55-1.3) H 03/02/18 06:19 Estimated GFR 19 mL/min (=/>90) L 03/02/18 06:19 Glucose 130 mg/dL (74-106) H 03/02/18 06:19 POC Glucose 140 mg/dl (65-120) H 03/02/18 07:08 Uric Acid 5.3 mg/dL (2.6-6.0) 03/02/18 06:19 Calcium 8.5 mg/dL (8.5-10.1) 03/02/18 06:19 Phosphorus 5.7 mg/dL (2.5-4.9) H 03/02/18 06:19 Magnesium 2.9 mg/dL (1.8-2.4) H 03/02/18 06:19 Iron 47.0 ug/dL (50-170) L 03/01/18 06:00 TIBC 244 ug/dL (250-460) L 03/01/18 06:00 Transferrin 174 mg/dL (200-360) L 03/01/18 06:00 Transferrin % Sat 19.3 % (20.0-50.0) L 03/01/18 06:00 Total Bilirubin 0.4 mg/dL (0.2-1.0) 03/01/18 06:00 Direct Bilirubin < 0.1 mg/dL (0-0.2) 03/01/18 06:00 AST 21 U/L (15-37) 03/01/18 06:00 ALT 15 U/L (12-78) 03/01/18 06:00 Alkaline Phosphatase 109 U/L (45-117) 03/01/18 06:00 NT-Pro-B Natriuret Pep 65323 pg/mL (<125) H 03/02/18 06:19 Serum Total Protein 6.8 g/dL (6.4-8.2) 03/01/18 06:00 Albumin 3.0 g/dL (3.4-5.0) L 03/01/18 06:00 Globulin 3.8 g/dL (2.3-3.5) H 03/01/18 06:00 Albumin/Globulin Ratio 0.8 (1.1-1.8) L 03/01/18 06:00 Prealbumin 26.7 mg/dL (20-40) 03/01/18 06:00 Urine Color Yellow 02/28/18 21:00 Urine Appearance Clear 02/28/18 21:00 Urine pH 7.0 (5.0-7.0) 02/28/18 21:00 Ur Specific [place] <=1.005 (1.005-1.030) 02/28/18 21:00 Urine Ketones Negative (NEG) 02/28/18 21:00 Urine Blood Negative (NEG) 02/28/18 21:00 Urine Nitrite Negative (NEG) 02/28/18 21:00 Urine Bilirubin Negative (NEG) 02/28/18 21:00 Urine Urobilinogen 0.2 mg/dL (0.2-1.0) 02/28/18 21:00 Ur Leukocyte Esterase Negative (NEG) 02/28/18 21:00 Urine RBC <5 /HPF (NONE SEEN) 02/28/18 21:00 Urine WBC <5 /HPF (<5) 02/28/18 21:00 Ur Squamous Epith Cells 5-10 /HPF (NONE SEEN) H 02/28/18 21:00 Urine Bacteria <20 /HPF (<20) 02/28/18 21:00 Urine Mucus 1+ /HPF (NONE SEEN) 02/28/18 21:00 Urine Culture Reflexed Not needed 02/28/18 21:00 Ur Random Microalbumin 59.0 mg/dL (< 1.9) H 02/28/18 21:00 Urine Creatinine 14.0 mg/dL (20-320) L 02/28/18 21:00 Microalb/Creat Ratio 4214.3 (< 30.0) H 02/28/18 21:00 Urine Glucose Negative (NEG) 02/28/18 21:00 Urine Total Protein 2+ (NEG) H 02/28/18 21:00 Weight: 187 lb 8 oz Wound Present: No Closed Surgical Incision Present: No Negative Pressure Wound Therapy Present: No Physician Update: Her K is mildly elevated. She will get more K binder today and repeat labs in the am. Now able to ambulate 90' with standby assistance. She reports some dizziness with head movement especially in the am. Will do the Eliu to help. My d/c in the AM. Medical Issues: Potassium- 5.5, kayexelate 30gm given Pain Issues: Early 5/325mg Q6H PRN PO. Tramadol 50mg TID PRN Functional Improvement: Patient has met all short-term goals at this time and is continuing to progress toward long-term goals. Patient has been c/o dizziness, and fatigue of late. Functional Improvement Occupational Therapy: pt can benifit with further therapy to address pt's UB strength/static standing balance for adl tasks. Cont to educate and instruct pt on energy conservation techniques and safety and providing Pt education on A/E as needed. Cont with the POC and the goals by the supervising OTR. Summary: Patient's care plan and [facility] goals have been reviewed and revised as necessary. Please see the Rehabilitation Signature page for all necessary signatures.
[2018-03-02] MEDS ORDERED: SOD POLYSTYREN SUL 15 GM/60 ML UCUP PO ONE (10:30)
--- NOTE | 2018-03-02 11:53 | FAST ---
SHIFT START DATE/TIME: 03/02/2018 07:00 (PALLIATIVE CARE NURSE) SHIFT END DATE/TIME: 03/02/2018 19:00 (PALLIATIVE CARE NURSE) NAME JULEE KENNEY DATE OF : 1955 DATE OF ADMISSION: 02/19/2018 15:02 (PALLIATIVE CARE NURSE) PHONE: AGE: 62 SSN# [id number] GENDER: Female ENCOUNTER PHYSICIAN: Dr. Mitul Collins M.D. ADMISSION DIAGNOSIS: - Orthopaedic Disorders 08 - Pelvic Fracture (08.3) Left Sacral Ala Insufficiency Fracture. EATING: EATING - STEP 1: Does the patient require the assistance of a person or device, or need extra time when eating? No. EATING - SCORE: 7-IND GROOMING: Comb/brush hair Oral care GROOMING - STEP 1: Does the patient require the assistance of a person or device, or need extra time when grooming? Yes. GROOMING - STEP 2: Does the patient require the assistance of a helper? No. The patient only requires an assistive devic e, OR takes more than reasonable time to groom, OR there is a concern for safety as the patient groom s GROOMING - SCORE: 6-CYNDIE BATHING: Activity did not occur on this shift BATHING - SCORE: 0-UNK DRESSING - UPPER BODY: T-shirt/pullover shirt (four steps) ARTICLES SCORE Total number of steps: 4 DRESSING - UPPER BODY - STEP 1: Does the patient require help from a person or device, or need extra time when dressing above the gabino st? Yes. DRESSING - UPPER BODY - STEP 2: Does the patient require the assistance of a helper? Yes. DRESSING - UPPER BODY - STEP 3: Does the helper touch the patient while dressing? Yes. DRESSING - UPPER BODY - STEP 4: How many of the total steps does the patient complete on his/her own? 4 DRESSING - UPPER BODY - SCORE: 4-MIN DRESSING - LOWER BODY: Elastic waist pants (three steps) Underwear (three steps) ARTICLES SCORE Total number of steps: 6 DRESSING - LOWER BODY - STEP 1: Does the patient require help from a person or device, or need extra time when dressing below the gabino st? Yes. DRESSING - LOWER BODY - STEP 2: Does the patient require the assistance of a helper? Yes. DRESSING - LOWER BODY - STEP 3: Does the helper touch the patient while dressing? Yes. DRESSING - LOWER BODY - STEP 4: How many of the total steps does the patient complete on his/her own? 5 DRESSING - LOWER BODY - SCORE: 4-MIN TOILETING: TOILETING - STEP 1: Does the patient require the assistance of a person or device, or need extra time with toileting? Yes . TOILETING - STEP 2: Does the patient require the assistance of a helper? No. TOILETING - SCORE: 6-CYNDIE BLADDER MANAGEMENT: BLADDER MANAGEMENT - STEP 1: Does the patient control the bladder completely and intentionally without equipment or devices or med ications, and is always continent? Yes. BLADDER MANAGEMENT - SCORE: 7-IND BLADDER MANAGEMENT - FREQUENCY OF ACCIDENTS: BLADDER MANAGEMENT(FA) - STEP 1: How many accidents has the patient had during the current shift? 0 BOWEL MANAGEMENT: BOWEL MANAGEMENT - STEP 1: Does the patient control bowels completely and intentionally without equipment devices or medications AND is always continent? Yes. BOWEL MANAGEMENT - SCORE: 7-IND BOWEL MANAGEMENT - FREQUENCY OF ACCIDENTS: BOWEL MANAGEMENT(FA) - STEP 1: How many accidents has the patient had during the current shift? 0 TRANSFERS: BED, CHAIR, WHEELCHAIR: TRANSFERS: BED, CHAIR, WHEELCHAIR - STEP 1: Does the patient require assistance of a person or device, or need extra time with bed, chair, or whe elchair transfers? Yes. TRANSFERS: BED, CHAIR, WHEELCHAIR - STEP 2: Does the patient require the assistance of a helper? Yes. TRANSFERS: BED, CHAIR, WHEELCHAIR - STEP 3: How much assistance does the patient require from the helper? Steadying/guiding assistance TRANSFERS: BED, CHAIR, WHEELCHAIR - SCORE: 4-MIN TRANSFERS: TOILET: TRANSFERS: TOILET - STEP 1: Does the patient require the assistance of a person or device, or need extra time with toilet transfe rs? Yes. TRANSFERS: TOILET - STEP 2: Does the patient require the assistance of a helper? Yes. TRANSFERS: TOILET - STEP 3: How much assistance does the patient require from the helper? Patient performs half or more of the tr ansferring tasks TRANSFERS: TOILET - STEP 4: Does the patient need only incidental help such as contact guard or steadying during toilet transfer? Yes. TRANSFERS: TOILET - SCORE: 4-MIN TRANSFERS: SHOWER: Activity did not occur on this shift TRANSFERS: SHOWER - SCORE: 0-UNK TRANSFERS: TUB: Activity did not occur on this shift TRANSFERS: TUB - SCORE: 0-UNK LOCOMOTION: WALK: Activity did not occur on this shift LOCOMOTION: WALK - SCORE: 0-UNK LOCOMOTION: WHEELCHAIR: Activity did not occur on this shift LOCOMOTION: WHEELCHAIR - SCORE: 0-UNK COMPREHENSION: COMPREHENSION - SCORE: 0-UNK EXPRESSION EXPRESSION - SCORE: 0-UNK SOCIAL INTERACTION: SOCIAL INTERACTION - SCORE: 0-UNK PROBLEM SOLVING: PROBLEM SOLVING - SCORE: 0-UNK MEMORY: MEMORY - SCORE: 0-UNK SIGNATURE PANEL: The following modified sections: Eating - Score, Grooming - Score, Bathing - Score, Dressing - Upper Body - Score, Dressing - Lower Body - Score, Toileting - Score, Bladder Management - Score, Bowel Man agement - Score, Transfers: Bed, Chair, Wheelchair - Score, Transfers: Toilet - Score, Transfers: Sia wer - Score, Transfers: Tub - Score, Locomotion: Walk - Score, Locomotion: Wheelchair - Score, Compre hension - Score, Expression - Score, Social Interaction - Score, Problem Solving - Score, Memory - Sc ore were [electronically] signed by Maris Tijerina CNA on MonMar 02 2018 11:53:09 GMT-0600 (Centra l Standard Time)
[2018-03-02] MEDS ORDERED: ONDANSETRON 4 MG (ODT) TAB PO PRN (13:20)
[2018-03-02] MEDS ORDERED: PROMETHAZINE 25 MG/ML VIAL IV ONE (13:45)
[2018-03-02] MEDS ORDERED: MEPERIDINE HCL 25 MG/0.5 ML IV ONE (13:45)
[2018-03-02] MEDS ORDERED: PROMETHAZINE 25 MG/ML VIAL ONE (13:55)
--- NOTE | 2018-03-02 15:06 | FAST ---
ENCOUNTER DATE AND TIME: 03/02/2018 08:00 (CONTRACTS LAW PROFESSOR) NAME JULEE KENNEY DATE OF : 1955 DATE OF ADMISSION: 02/19/2018 15:02 (CONTRACTS LAW PROFESSOR) PHONE: AGE: 62 SSN# [id number] GENDER: Female ENCOUNTER PHYSICIAN: Dr. Mitul Collins M.D. ADMISSION DIAGNOSIS: - Orthopaedic Disorders 08 - Pelvic Fracture (08.3) Left Sacral Ala Insufficiency Fracture. EATING: Activity did not occur on this shift EATING - SCORE: 0-UNK GROOMING: Activity did not occur on this shift GROOMING - SCORE: 0-UNK BATHING: Activity did not occur on this shift BATHING - SCORE: 0-UNK DRESSING - UPPER BODY: Activity did not occur on this shift Patient is not dressing in public clothing ARTICLES SCORE Total number of steps: 0 DRESSING - UPPER BODY - SCORE: 0-UNK DRESSING - LOWER BODY: Activity did not occur on this shift Patient is not dressing in public clothing ARTICLES SCORE Total number of steps: 0 DRESSING - LOWER BODY - SCORE: 0-UNK TOILETING: Activity did not occur on this shift TOILETING - SCORE: 0-UNK BLADDER MANAGEMENT: Activity did not occur on this shift BLADDER MANAGEMENT - SCORE: 7-IND BOWEL MANAGEMENT: Activity did not occur on this shift BOWEL MANAGEMENT - SCORE: 7-IND TRANSFERS: BED, CHAIR, WHEELCHAIR: TRANSFERS: BED, CHAIR, WHEELCHAIR - STEP 1: Does the patient require assistance of a person or device, or need extra time with bed, chair, or whe elchair transfers? Yes. TRANSFERS: BED, CHAIR, WHEELCHAIR - STEP 2: Does the patient require the assistance of a helper? No. Patient only requires an assistive device fo r bed, chair, wheelchair transfers such as a sliding board, grab bar, or brace, OR s/he takes more th an reasonable time, OR there is a safety concern when s/he performs the transfers TRANSFERS: BED, CHAIR, WHEELCHAIR - SCORE: 6-CYNDIE TRANSFERS: TOILET: Activity did not occur on this shift TRANSFERS: TOILET - SCORE: 0-UNK TRANSFERS: SHOWER: Activity did not occur on this shift TRANSFERS: SHOWER - SCORE: 0-UNK TRANSFERS: TUB: Activity did not occur on this shift TRANSFERS: TUB - SCORE: 0-UNK LOCOMOTION: WALK: LOCOMOTION: WALK - STEP 1: Does the patient need help from a person or device, or need extra time to walk 150 feet? No. LOCOMOTION: WALK - STEP 2: Does the patient need an assistive device (such as an orthosis, prosthesis, crutches, or walker) to g o 150 feet, OR does s/he take more than reasonable time, OR is there a concern for safety? Yes, the p atient needs an assistive device LOCOMOTION: WALK - SCORE: 6-CYNDIE LOCOMOTION: WHEELCHAIR: LOCOMOTION: WHEELCHAIR - STEP 1: Does the patient need help to go 150 feet in a wheelchair? No. LOCOMOTION: WHEELCHAIR - SCORE: 6-CYNDIE LOCOMOTION: STAIRS: LOCOMOTION: STAIRS - STEP 1: Does the patient need help to go up and down 12 to 14 stairs? Yes. LOCOMOTION: STAIRS - STEP 2: How much assistance does the patient need from the helper to go a minimum of 12 to 14 stairs? The pat ient goes less than 12 stairs, but at least 4 stairs LOCOMOTION: STAIRS - SCORE: 2-MAX COMPREHENSION: COMPREHENSION - SCORE: 0-UNK EXPRESSION EXPRESSION - SCORE: 0-UNK SOCIAL INTERACTION: SOCIAL INTERACTION - SCORE: 0-UNK PROBLEM SOLVING: PROBLEM SOLVING - SCORE: 0-UNK MEMORY: MEMORY - SCORE: 0-UNK SIGNATURE PANEL: The following modified sections: Transfers: Bed, Chair, Wheelchair - Score, Transfers: Toilet - Score , Locomotion: Walk - Score, Locomotion: Wheelchair - Score, Locomotion: Stairs - Score were [electron lamont] signed by Vincent Blanca PTA on MonMar 02 2018 15:05:16 GMT-0600 (Central Standard Time)
--- NOTE | 2018-03-02 15:43 | FAST ---
ENCOUNTER DATE AND TIME: 03/02/2018 08:00 (STRATEGIC INTELLIGENCE OFFICER) NAME JULEE KENNEY DATE OF : 1955 DATE OF ADMISSION: 02/19/2018 15:02 (STRATEGIC INTELLIGENCE OFFICER) PHONE: AGE: 62 N# [id number] GENDER: Female ENCOUNTER PHYSICIAN: Dr. Mitul Collins M.D. ADMISSION DIAGNOSIS: - Orthopaedic Disorders 08 - Pelvic Fracture (08.3) Left Sacral Ala Insufficiency Fracture. EATING: Activity did not occur on this shift EATING - SCORE: 0-UNK GROOMING: Comb/brush hair Wash, rinse, and dry face Wash, rinse, and dry hands GROOMING - STEP 1: Does the patient require the assistance of a person or device, or need extra time when grooming? No. GROOMING - SCORE: 7-IND BATHING: Abdomen Buttocks Chest Left arm Left lower leg and foot Left upper leg Perineal area Right arm Right lower leg and foot Right upper leg BATHING - STEP 1: Does the patient require the assistance of a person or device, or need extra time when bathing? Yes. BATHING - STEP 2: Does the patient require the assistance of a helper? No. The patient only requires an assistive devic e such as a bath joslyn, OR the patient takes more than reasonable time to bathe, OR there is a concern for safety such as regulating water temperature as the patient bathes. BATHING - SCORE: 6-CYNDIE DRESSING - UPPER BODY: T-shirt/pullover shirt (four steps) ARTICLES SCORE Total number of steps: 4 DRESSING - UPPER BODY - STEP 1: Does the patient require help from a person or device, or need extra time when dressing above the [address]? No. DRESSING - UPPER BODY - SCORE: 7-IND DRESSING - LOWER BODY: Elastic waist pants (three steps) Sock - Left foot (one step) Sock - Right foot (one step) Tied or buckled shoe - Left foot (two steps) Tied or buckled shoe - Right foot (two steps) Underwear (three steps) ARTICLES SCORE Total number of steps: 12 DRESSING - LOWER BODY - STEP 1: Does the patient require help from a person or device, or need extra time when dressing below the [address]? Yes. DRESSING - LOWER BODY - STEP 2: Does the patient require the assistance of a helper? Yes. DRESSING - LOWER BODY - STEP 3: Does the helper touch the patient while dressing? Yes. DRESSING - LOWER BODY - STEP 4: How many of the total steps does the patient complete on his/her own? 8 DRESSING - LOWER BODY - SCORE: 3-MOD TOILETING: TOILETING - STEP 1: Does the patient require the assistance of a person or device, or need extra time with toileting? Yes . TOILETING - STEP 2: Does the patient require the assistance of a helper? No. TOILETING - SCORE: 6-CYNDIE BLADDER MANAGEMENT: Activity did not occur on this shift BLADDER MANAGEMENT - SCORE: 7-IND BOWEL MANAGEMENT: Activity did not occur on this shift BOWEL MANAGEMENT - SCORE: 7-IND TRANSFERS: BED, CHAIR, WHEELCHAIR: Activity did not occur on this shift TRANSFERS: BED, CHAIR, WHEELCHAIR - SCORE: 0-UNK TRANSFERS: TOILET: TRANSFERS: TOILET - STEP 1: Does the patient require the assistance of a person or device, or need extra time with toilet transfe rs? Yes. TRANSFERS: TOILET - STEP 2: Does the patient require the assistance of a helper? No. Patient only requires an assistive device arriola ch as a grab bar or special seat, OR s/he takes more than reasonable time to perform toilet transfers , OR there is a safety concern when s/he performs toilet transfers. TRANSFERS: TOILET - SCORE: 6-CYNDIE TRANSFERS: SHOWER: Activity did not occur on this shift TRANSFERS: SHOWER - SCORE: 0-UNK TRANSFERS: TUB: TRANSFERS: TUB - STEP 1: Does the patient require the assistance of a person or device, or need extra time with tub transfers? Yes. TRANSFERS: TUB - STEP 2: Does the patient require the assistance of a helper? No. Only requires the assistance of an assistive device, OR takes more than reasonable time, OR there is a concern for safety when s/he performs tub transfers TRANSFERS: TUB - SCORE: 6-CYNDIE LOCOMOTION: WALK: Activity did not occur on this shift LOCOMOTION: WALK - SCORE: 0-UNK LOCOMOTION: WHEELCHAIR: Activity did not occur on this shift LOCOMOTION: WHEELCHAIR - SCORE: 0-UNK LOCOMOTION: STAIRS: Activity did not occur on this shift LOCOMOTION: STAIRS - SCORE: 0-UNK COMPREHENSION: COMPREHENSION: TYPE: Visual COMPREHENSION - STEP 1: Does the patient require help from a person or device, or need extra time to understand complex and a bstract ideas (such as current events, finances, discharge planning, medical issues, relationships, e tc)? No. COMPREHENSION - STEP 2: Does the patient need extra time, require an assistive device (such as glasses for visual comprehensi on or a hearing aid for auditory comprehension) or does s/he have mild difficulty understanding compl ex and abstract information? No. COMPREHENSION - SCORE: 7-IND EXPRESSION EXPRESSION: TYPE: Non-Vocal EXPRESSION - STEP 1: Does the patient require help from a person or device, or need extra time expressing complex and abst ract ideas (such as current events, finances, discharge planning, medical issues, relationships, etc) ? No. EXPRESSION - STEP 2: Does the patient need extra time, require an assistive device (such as augmentive communication syste m or a communication board), OR does s/he have mild difficulty expressing complex and abstract ideas (including mild dysarthria or mild word-find problems)? No. EXPRESSION - SCORE: 7-IND SOCIAL INTERACTION: SOCIAL INTERACTION - STEP 1: Does the patient require a helper to interact with others in social and therapeutic situations? No. SOCIAL INTERACTION - STEP 2: Does the patient need extra time in social situations, OR does s/he interact with staff, other patien ts, and family members ONLY in structured environments, OR does s/he require medication for social in teraction? No. SOCIAL INTERACTION - SCORE: 7-IND PROBLEM SOLVING: PROBLEM SOLVING - STEP 1: Does the patient need help from a person or device, or need extra time to solve complex problems such as managing a checking account or confronting interpersonal problems? No. PROBLEM SOLVING - STEP 2: Does the patient require extra time to make decisions or solve problems, OR does s/he have slight dif ficulty reading, initiating, or self-correcting in unfamiliar situations? No. PROBLEM SOLVING - SCORE: 7-IND MEMORY: MEMORY - STEP 1: Does the patient need help from a person or device, or need extra time to remember frequently encount ered people, daily routines, and executing requests? No. MEMORY - STEP 2: Does the patient have slight difficulty recognizing frequently encountered people, daily routines, or executing requests without the need for repetition or using self-initiated or environmental cues to remember? No. MEMORY - SCORE: 7-IND SIGNATURE PANEL: The following modified sections: Eating - Score, Grooming - Score, Bathing - Score, Dressing - Upper Body - Score, Dressing - Lower Body - Score, Toileting - Score, Transfers: Bed, Chair, Wheelchair - S core, Transfers: Toilet - Score, Transfers: Shower - Score, Transfers: Tub - Score, Comprehension - S core, Expression - Score, Social Interaction - Score, Problem Solving - Score, Memory - Score were [e lectronically] signed by CIRO Gentile on MonMar 02 2018 15:42:37 T-0600 ([facility] [address])
[2018-03-02] MEDS ORDERED: cloNIDine HCl 0.1 MG TAB PO PRN (15:54)
[2018-03-02] MEDS ORDERED: LABETALOL 20 MG/4ML SYRINGE IV ONE ×2 (16:48→17:00)
[2018-03-02 16:54] VITALS: BP 193/81
--- NOTE | 2018-03-02 17:40 | P.PN ---
Date of Service: 03/02/18 Patient being admitted to the floor for elevated BP, AMS. Please see H&P on pt inpatient chart room 416.
--- NOTE | 2018-03-02 17:41 | RAD REPORT ---
EXAM DESCRIPTION: CT - Ct Stroke Brain Wo Cont - 03/02/2018 5:35 pm CLINICAL HISTORY: AMS CVA symptomology. COMPARISON: HEAD BRAIN W O CONTRAST dated 09/04/2012; HEAD BRAIN W O CONTRAST dated 07/12/2006 TECHNIQUE: All CT scans are performed using dose optimization technique as appropriate and may inclu de automated exposure control or mA/KV adjustment according to patient size. FINDINGS: No intracranial hemorrhage, hydrocephalus or extra-axial fluid collection.No areas of brai n edema or evidence of midline shift. The paranasal sinuses and mastoids are clear. The calvarium is intact. IMPRESSION: No acute intracranial abnormality.
--- NOTE | 2018-03-09 15:38 | R.DS ---
FACILITY [facility] MR# [id number] NAME JULEE KENNEY ADDRESS [address] [facility] [address] [place] [address] [address] [id number] PHONE DATE OF 1955 AGE 62 SSN# [id number] GENDER Female DEXTERITY Right-handed MARITAL STATUS RACE White ENCOUNTER PHYSICIAN Dr. Mitul Collins M.D. REFERRING DOCTOR Erica Craig REFERRING FACILITY [facility] DISCHARGE DIAGNOSIS: - Orthopaedic Disorders 08 - Pelvic Fracture (08.3) Left Sacral Ala Insufficiency Fracture. DISCHARGE COMORBIDITIES: - Non-Tiered Type 2 diabetes mellitus with diabetic neuropathy, unspecified (E11.40) - N/A Acute Kidney Injury superimposed on CKD Hyperkalemia Hypertension Anxiety Depression CAD DATE OF ADMISSION 02/19/2018 15:02 (TELEPHONE CLERKS SUPERVISOR) MEDICATION ALLERGIES: PENICILLIN ENVIRONMENTAL ALLERGIES: None Known - Substance Allergies None Known - Other Allergies None Known NURSING: - Shower allowing shower - Lab Results blood Sugar Check ACHS - Skin care per protocol ACTIVITIES OOB only with supervision THERAPIES: - Occupational Therapy Evaluate and Treat - Physical Therapy Evaluate and Treat HISTORY OF PRESENT ILLNESS: Pt. is a 62 yo Right-handed white female.On 02/14/2018 she was admitted to [facility] with diagnosis Left Sacral Ala Insufficiency Fracture.Her impairment category is Orthopaedic D isorders 08 - Pelvic Fracture (08.3).Pre-morbidly, Pt. was independent/mod-I in Self-Care, Sphincter Control, Communication, and Social Cognition; and she had good Sphincter Control.Currently, she has deficits of Safety Awareness, Transfers Control, Balance, Locomotion, Endurance, and Self-Care.Pt. is now referred to [facility] for acute in-patient rehabilitation in order to ma ximize patient's functional independence in activities of daily living, strength, ROM, and mobility.- Rehab Goal Patient has realistic goal of being discharged at assistance level 6-Bushra to reside at Home with Fam roxana/Relatives. HOSPITAL COURSE: DIET - LIQUID TEXTURE: On 02/19/2018 Pt was upgraded to Regular Diet - Liquid Texture. DIET - SOLID TEXTURE: On 02/19/2018 Pt was upgraded to Regular Diet - Solid Texture. DIET TYPE: On 02/19/2018 Pt was upgraded to Regular Diet Type. TUBE FEED: On 02/19/2018 Pt was changed to N/A Tube Feed. DISCHARGE PHYSICAL EXAM - Gen Alert and awake Lying in bed No apparent distress Oriented to: person, time, and place - Skin No breakdowns No abnormalities - Eyes No abnormalities - ENMT No abnormalities - Neck No abnormalities - CVS RRR - Chest No abnormalities - Abd + bowel sounds - GI Soft Deferred - No abnormalities - Ext No significant edema. - MSK 4/5 weakness in both lower extremities. - Neuro No focal deficits - Psych No abnormalities DISCHARGE FUNCTIONAL/MEDICAL STATUS: - N/A New Due to uncontrolled hypertension, transferred to [facility] prior to transfer to [facility] as per re commendation of continuous pillowcase cutter. FUNCTIONAL STATUS: - Self-Care A. Eating 6-Bushra 6-Bushra B. Grooming 7-Ind 7-Ind C. Bathing 5-sup 7-Ind D. Dressing - Upper 5-sup 7-Ind E. Dressing - Lower 5-sup 7-Ind F. Toileting 4-Sherry 7-Ind - Sphincter Control G: Bladder control 7-Ind 7-Ind H: Bowel control 7-Ind 7-Ind - Transfers Control I. Bed/Chair/Wheelchair 4-Sherry 4-Sherry J. Toilet 4-Sherry 4-Sherry K. Tub/Shower 0-ADNO 0-ADNO - Locomotion L. Walk/Wheelchair (C) 4-Sherry 4-Sherry L. Walk/Wheelchair (W) 4-Sherry 4-Sherry M. Stairs 0-ADNO 0-ADNO - Communication N. Comprehension (B) 7-Ind 7-Ind O. Expression (B) 7-Ind 7-Ind - Social Cognition P. Social Interaction 7-Ind 7-Ind Q. Problem Solving 7-Ind 7-Ind R. Memory 7-Ind 7-Ind - Endurance Fair - Balance Fair - Safety Awareness Fair DISCHARGE INSTRUCTIONS: - N/A Aspirin 81 mg daily and mobilization. DISCHARGE PLAN, FOLLOW UP CARE PROVISIONS: - Estimated Length of Stay (days) 14. - Consensus on plan Discharge plan has been discussed with primary caregiver. Patient/Family is in agreement with the bobby n. Primary caregiver is in agreement with the plan. - Patient/Family Goals Return home with assistance. - Planned Living Setting Upon Discharge Home, to live with Family/Relatives. SIGNATURE PANEL: (TELEPHONE CLERKS SUPERVISOR)
== END 2018-03-02 07:30 | disposition short-term general hospital (02) | DRG 560 ==
LOC: 5TH 15:02
PROVIDERS: ADMIT Psychiatry & Neurology Neurology with Special Qualifications in Child Neurology; ATTEND Psychiatry & Neurology Neurology with Special Qualifications in Child Neurology
DX: S32.111D Minimally displaced Zone I fracture of sacrum, subsequent encounter for fracture with routine healing (principal); N17.9 Acute kidney failure, unspecified; E87.2 Acidosis; E87.6 Hypokalemia; E83.51 Hypocalcemia; E87.5 Hyperkalemia; E11.40 Type 2 diabetes mellitus with diabetic neuropathy, unspecified; E11.22 Type 2 diabetes mellitus with diabetic chronic kidney disease; I12.9 Hypertensive chronic kidney disease with stage 1 through stage 4 chronic kidney disease, or unspecified chronic kidney disease; N18.3 Chronic kidney disease, stage 3 (moderate); D63.8 Anemia in other chronic diseases classified elsewhere; F41.9 Anxiety disorder, unspecified
CPT/HCPCS: 36415; 70450; 71045; 74018; 80048; 80076; 81001; 82040; 82043; 82570; 82962; 83540; 83735; 83880; 84100; 84134; 84466; 84550; 85025; 87086; 87088; 93306; 93970; 97110; 97112; 97116; 97162; 97167; 97530; 97542; J0360; J1650; J2175; J2550; J7030

== ENCOUNTER 2018-03-02 16:40 | Observation (INO) | payer OTHER ==
--- OUTSIDE RECORDS SUMMARY | 2018-03-02 18:02 | XMS REPORT | Clinical Summary ---
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 NSTEMI [...] Kebede Selective coronary Cardiology MD [place] angiography [53345 (CPT)] 01/26/2018 Hospital Cardiology Sanjay Kebede Atherosclerosis of - Encounter MD [place] council coronary artery 01/27/2018 of council heart with unstable angina pectoris (HCC) 11/08/2017 Anesthesia Event Orthopedic Neil Hernandez MD 11/08/2017 Surgery Orthopedic Denny Martinez LEFT PROXIMAL FEMUR ORIF Surgery MD Harlan AND ANY INDICATED PROCEDURES 11/03/2017 Surgery Procedural Sanjay Kebede Cv left heart cath Cardiology MD [place] [85520 (CPT)] 10/27/2017 Hospital Orthopedic Rosa Lopez NSTEMI (non-ST elevated myocardial infarction) (Primary Dx); [...] 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 She was born in [place], [place] and raised in [place]. She worked as a web merchant. Alcohol Use Drinks/Week oz/Week Comments No Sex Assigned at Date Recorded Not on file Job Start Date Occupation Industry Not on file Not on file Not on file Travel History Travel Start Travel End No recent travel history available. Last Filed Vital Signs Vital Sign Reading Time Taken Blood Pressure 149/66 01/27/2018 9:51 AM THERAPIST RADIATION Pulse 50 01/27/2018 9:51 AM THERAPIST RADIATION Temperature 36.3 C (97.3 F) 01/27/2018 7:44 AM THERAPIST RADIATION Respiratory Rate 23 01/27/2018 9:51 AM THERAPIST RADIATION Oxygen Saturation 94% 01/27/2018 9:51 AM THERAPIST RADIATION Inhaled Oxygen Concentration - - Weight 82.4 kg (181 lb 11.2 oz) 01/26/2018 8:58 AM THERAPIST RADIATION Height 165.1 cm (5' 5") 01/26/2018 8:58 AM THERAPIST RADIATION Body Mass Index 30.24 01/26/2018 8:58 AM THERAPIST RADIATION Plan of Treatment Health Maintenance Due Date Last Done Comments CERVICAL CANCER SCREENING 09/24/1975 BREAST CANCER SCREENING 2004 COLON CANCER SCREENING 2004 SHINGLES VACCINES (1 of 2) 2004 DIABETIC RETINAL EYE EXAM 01/08/2016 01/07/2015 DIABETIC FOOT EXAM 11/03/2016 11/04/2015, 11/04/2015 INFLUENZA VACCINE 09/20/2017 Implants Implanted Type Area [employer] Program Coordinator Device Shelf Model / Identifier Expiration Serial / Date Lot Catheter Bln Otw 2.5mm 12mm Sprinter - [id number] Cardiovascular N/A: [facility] [facility] [id number] / Implanted: 11/03/2017 (Quantity not on file) Implants N/A - VASCULAR / Catheter Bln Otw 2.5mm 12mm Sprinter - [id number] Cardiovascular N/A: [employer] [facility] [id number] / Implanted: 01/26/2018 (Quantity not on file) Implants N/A - VASCULAR / Stent System 3.0 X 15mm Resolute [place] Otw Coronary - [id number] Coronary Stents N/A: [employer] [facility] [id number] / Implanted: 01/26/2018 (Quantity not on file) N/A - CARDIAC / RYHTYM MGMT Stent System 3.0 X 15mm Resolute [place] Otw Coronary - [id number] Coronary Stents N/A: [employer] [facility] [id number] / Implanted: 01/26/2018 (Quantity not on file) N/A - CARDIAC / RYHTYM MGMT Stent System 2.50 X 34mm Resolute [place] Rx Coronary - [id number] Coronary Stents N/A: [employer] [facility] [id number] / Implanted: 01/26/2018 (Quantity not on file) N/A - CARDIAC / RYHTYM MGMT Stent System 2.50 X 12mm Resolute [place] Otw Coronary - [id number] Coronary Stents N/A: [employer] [facility] [id number] / Implanted: 01/26/2018 (Quantity not on file) N/A - CARDIAC / RYHTYM MGMT Lock Screw Square 2.7mm X 22mm - [id number] IMPLANT Left: BIOMET TRAUMA [id number] / Implanted: 11/08/2017 (Quantity not on file) DEVICES Wrist / Lock Screw Square 2.7mm X 18mm - [id number] IMPLANT Left: BIOMET TRAUMA [id number] / Implanted: 11/08/2017 (Quantity not on file) DEVICES Wrist / Lp Non Lock 2.7mm X 14mm - [id number] IMPLANT Left: BIOMET TRAUMA [id number] / Implanted: 11/08/2017 (Quantity not on file) DEVICES Wrist / Lp Non Lock 2.7mm X 20mm - [id number] IMPLANT Left: BIOMET TRAUMA [id number] / Implanted: 11/08/2017 (Quantity not on file) DEVICES Wrist / 95 Deg Condylar Plate 9 Holes/80mm/156mm - [id number] [id number] IMPLANT Left: SYNTHES TRAUMA [id number] / Implanted: 11/08/2017 (Quantity not on file) DEVICES Femur / Dvr Lock Medium L - [id number] [id number] IMPLANT Left: BI[employer]MA [id number] / Implanted: 11/08/2017 (Quantity not on file) DEVICES Wrist / Lock Screw Square 2.7mm X 16mm - [id number] IMPLANT Left: BIOMET TRAUMA [id number] / Implanted: 11/08/2017 (Quantity not on file) DEVICES Wrist / Lock Screw Square 2.7mm X 15mm - [id number] IMPLANT Left: BIOMET TRAUMA [id number] / Implanted: 11/08/2017 (Quantity not on file) DEVICES Wrist / Lock Screw Square 2.7mm X 20mm - [id number] [id number] IMPLANT Left: BIOMET TRAUMA [id number] / Implanted: 11/08/2017 (Quantity not on file) DEVICES Wrist / Screw Bone Joel Slf-Tap W/ Lg Hxgnl Socket Ss 4.5x36mm - [id number] Orthopedic Trauma Left: SYNTHES TRAUMA [id number] / Implanted: 11/08/2017 (Quantity not on file) Implants Femur AND RECON / Screw Bone Joel Slf-Tap W/ Lg Hxgnl Socket Ss 4.5x38mm - [id number] Orthopedic Trauma Left: SYNTHES TRAUMA 214 [id number] / Implanted: 11/08/2017 (Quantity not on file) Implants Femur AND RECON / Screw Bone Joel Slf-Tap W/ Lg Hxgnl Socket Ss 4.5x42mm - [id number] Orthopedic Trauma Left: SYNTHES TRAUMA 214 [id number] / Implanted: 11/08/2017 (Quantity not on file) Implants Femur AND RECON / Screw Bone Joel Slf-Tap W/ Lg Hxgnl Socket Ss 4.5x44mm - [id number] Orthopedic Trauma Left: SYNTHES TRAUMA 214 [id number] / Implanted: 11/08/2017 (Quantity not on file) Implants Femur AND RECON / Screw Bone Joel Slf-Tap W/ Lg Hxgnl Socket Ss 4.5x48mm - [id number] Orthopedic Trauma Left: SYNTHES TRAUMA 214 848 / Implanted: 11/08/2017 (Quantity not on file) Implants Femur AND RECON / Screw Bone Joel Slf-Tap W/ Lg Hxgnl Socket Ss 4.5x90mm - [id number] Orthopedic Trauma Left: SYNTHES TRAUMA 214 890 / Implanted: 11/08/2017 (Quantity not on file) Implants Femur AND RECON / Screw Bone Canltd Thred Lg Hxgnl Socket Ss [id number] - [id number] Orthopedic Trauma Left: SYNTHES TRAUMA [id number] / Implanted: 11/08/2017 (Quantity not on file) Implants Femur AND RECON / System Clsr Sut Meditd 6fr Perclose Proglide - [id number] Surgical N/A: EVANS 08/20/2019 [id number] / Implanted: 11/03/2017 (Quantity not on file) Implants; N/A VASCULAR / Expanders; DEVICES [id number] Extenders; Surgical Wires Explanted Type [employer] Program Coordinator Device Shelf Model / Identifier Expiration Serial / Date Lot Lock Screw Square 2.7mm X 14mm - [id number] IMPLANT Left: BIOMET TRAUMA [id number] / Implanted: 11/08/2017 (Quantity not on file) DEVICES Wrist / Explanted: 11/08/2017 (Quantity not on file) Screw Bone Canltd Thred Lg Hxgnl Socket Ss [id number] - [id number] Orthopedic Left: SYNTHES TRAUMA [id number] / Implanted: 11/08/2017 (Quantity not on file) Trauma Femur AND RECON / Explanted: 11/08/2017 (Quantity not on file) Implants Screw Bone Canltd Thred Lg Hxgnl Socket Ss [id number] - [id number] Orthopedic Left: SYNTHES TRAUMA [id number] / Implanted: 11/08/2017 (Quantity not on file) Trauma Femur AND RECON / Explanted: 11/08/2017 (Quantity not on file) Implants Procedures Procedure Name Priority Date/Time Associated Diagnosis Comments POC GLUCOSE Routine 01/27/2018 8:30 Results for AM THERAPIST RADIATION this procedure are in the results section. SMEAR REVIEW Routine 01/27/2018 4:10 Results for AM THERAPIST RADIATION this procedure are in the results section. HC COMPLETE BLD COUNT Routine 01/27/2018 4:10 Results for W/AUTO DIFF AM THERAPIST RADIATION this procedure are in the results section. ESTIMATED GFR Routine 01/27/2018 4:00 Results for AM THERAPIST RADIATION this procedure are in the results section. BASIC METABOLIC PANEL Routine 01/27/2018 4:00 Results for AM THERAPIST RADIATION this procedure are in the results section. ECG 12-LEAD Routine 01/27/2018 3:59 Results for AM THERAPIST RADIATION this procedure are in the results section. POC GLUCOSE Routine 01/26/2018 6:00 Results for PM THERAPIST RADIATION this procedure are in the results section. ESTIMATED GFR Routine 01/26/2018 6:00 Results for PM THERAPIST RADIATION this procedure are in the results section. CREATININE LEVEL Routine 01/26/2018 6:00 Results for PM THERAPIST RADIATION this procedure are in the results section. POC GLUCOSE Routine 01/26/2018 2:51 Results for PM THERAPIST RADIATION this procedure are in the results section. ECG PRE/POST OP Routine 01/26/2018 1:13 Results for PM THERAPIST RADIATION this procedure are in the results section. CV PCI STENT Routine 01/26/2018 1:03 Atherosclerosis of Results for PM THERAPIST RADIATION council coronary artery this procedure of council heart with are in the unstable angina pectoris results (HCC) section. CV SELECTIVE CORONARY Routine 01/26/2018 1:03 Atherosclerosis of Results for ANGIOGRAPHY PM THERAPIST RADIATION council coronary artery this procedure of council heart with are in the unstable angina pectoris results (HCC) section. ACTIVATED CLOTTING Routine 01/26/2018 12:07 Results for TIME PM THERAPIST RADIATION this procedure are in the results section. POC PANEL Routine 01/26/2018 9:30 Results for AM THERAPIST RADIATION this procedure are in the results section. ESTIMATED GFR Routine 01/26/2018 9:30 Results for AM THERAPIST RADIATION this procedure are in the results section. ECG 12-LEAD STAT 01/26/2018 8:44 Results for AM THERAPIST RADIATION this procedure are in the results section. POC GLUCOSE Routine 01/26/2018 8:40 Results for AM THERAPIST RADIATION this procedure are in the results section. [...] left femur, are in the initial encounter ([facility]) results Broken wrist, left, section. closed, initial encounter AEROBIC CULTURE Timed 11/08/2017 11:25 Closed 2-part Results for AM CDT intertrochanteric this procedure fracture of left femur, are in the initial encounter results Broken wrist, left, section. closed, initial encounter FUNGUS CULTURE Timed 11/08/2017 11:25 Closed 2-part Results for AM CDT intertrochanteric this procedure fracture of left femur, are in the initial encounter ([facility]) results Broken wrist, left, section. closed, initial [...] left femur, are in the initial encounter ([facility]) results Broken wrist, left, section. closed, initial [...] this procedure are in the results section. WY AN ELECTIVE Routine 11/08/2017 9:48 ENDOTRACHEAL AIRWAY AM CDT Procedure Note - Patel Becker CRNA - 11/08/2017 9:48 AM CDT Airway Date/Time: 11/08/2017 8:27 AM Performed by: PATEL BECKER Authorized by: NEIL HERNANDEZ Location: OR Urgency: Elective Difficult Airway: No Resident/PUSHCART PEDDLER/AA: PATEL BECKER Performed by: resident/PUSHCART PEDDLER/AA Preoxygenated with 100% O2: Yes C-spine Precautions [...] AM CDT Central line Performed by: NEIL HERNANDEZ Authorized by: NEIL HERNANDEZ Patient Location: OR Staff: Anesthesiologist: NEIL HERNANDEZ Performed by: Anesthesiologist Preprocedure:patient identified, IV checked, [...] 8:57 AM CDT Procedure Note - Patel BeckerJEFFERY - 11/08/2017 8:57 AM CDT Arterial line Performed by: NEIL HERNANDEZ Authorized by: NEIL HERNANDEZ Patient Location: OR Staff: Anesthesiologist: NEIL HERNANDEZ Performed by: Anesthesiologist Pre-procedure: patient identified, IV [...] closed, initial encounter Case Notes LARGE C-ARM, InsightETETYS, @1302 VIA ACTIVE FAX ADDED TO PROC/CODES, [...] closed, initial encounter Case Notes LARGE C-ARM, AQUX5 GroupTYS, @1302 VIA ACTIVE FAX ADDED TO PROC/CODES, [...] are in SPECTRAL COLOR DOPPLER the results (26284) section. POC GLUCOSE Routine 10/29/2017 3:56 Results [...] 7:17 Obstructive sleep AM CDT apnea syndrome after 03/01/2017 Results POC glucose (01/27/2018 8:30 AM THERAPIST RADIATION)Only the most recent of133 resultswithin the time period is included. POC glucose 157 (H) 65 - 99 mg/dL [facility] Comment: [facility] Notified RN Meter ID: [id number] Ton Cylinder Inspector: Chao Crandall Performing Organization Address City/State/Zipcode Phone Number [facility] DEPARTMENT OF PATHOLOGY AND [address] [place] [phone] GENOMIC MEDICINE [facility] [address] [place] [address] Smear review (01/27/2018 4:10 AM THERAPIST RADIATION)Only the most recent of2 resultswithin the time period is included. Platelet slide review Dafne adequate [facility] Anisocytosis Moderate [facility] Polychromasia Moderate [facility] Ovalocytes Moderate [facility] Performing Organization Address City/State/Zipcode Phone Number [facility] DEPARTMENT OF PATHOLOGY AND [address] [place] [address] [facility] [address] [place] [address] CBC with platelet and differential (01/27/2018 4:10 AM THERAPIST RADIATION)Only the most recent of20 resultswithin the time period is included. WBC 4.54 4.50 - 11.00 k/uL [facility] RBC 3.50 (L) 4.20 - 5.50 m/uL [facility] HGB 10.8 (L) 12.0 - 16.0 g/dL [facility] HCT 34.9 (L) 37.0 - 47.0 % [facility] MCV 99.7 82.0 - 100.0 fL [facility] MCH 30.9 27.0 - 34.0 pg [facility] MCHC 30.9 (L) 31.0 - 37.0 g/dL [facility] RDW - SD 48.5 37.0 - 55.0 fL [facility] MPV 10.9 8.8 - 13.2 fL [facility] Platelet count 205 150 - 400 k/uL [facility] Nucleated RBC 0.00 /100 WBC [facility] Neutrophils 59.3 39.0 - 69.0 % [facility] Lymphocytes 27.1 25.0 - 45.0 % [facility] Monocytes 10.4 (H) 0.0 - 10.0 % [facility] Eosinophils 2.4 0.0 - 5.0 % [facility] Basophils 0.4 0.0 - 1.0 % [facility] Immature granulocytes 0.4Comment: "Immature 0.0 - 1.0 % [facility]" [facility] (promyelocytes, myelocytes, metamyelocytes) Specimen Blood Performing Organization Address City/State/Zipcode Phone Number [facility] DEPARTMENT OF PATHOLOGY AND [address] [place], [place] [id number] [place] [phone] Estimated GFR (01/27/2018 4:00 AM THERAPIST RADIATION)Only the most recent of24 resultswithin the time period is included. Estimated GFR 23 (A) mL/min/1.73 m2 [facility] Comment: HOSPITAL CatergoryUnitsInterpretation G1 >=90 Normal or high G2 60-89Mildly decreased W1h54-41Avcmkg to moderately decreased [id number] to severely decreased G4 15-29Severely decreased G5 <15Kidney failure The eGFR was calculated using the Chronic Kidney Disease Epidemiology Collaboration (CKD-EPI) equation. Interpretation is based on recommendations of the National Kidney Foundation-Kidney Disease Outcomes Quality Initiative (NKF-KDOQI) published in 2014. Specimen Plasma specimen Performing Organization Address City/[facility] Phone Number [facility] DEPARTMENT OF PATHOLOGY AND [address] [place] [address] Basic metabolic panel (01/27/2018 4:00 AM THERAPIST RADIATION)Only the most recent of21 resultswithin the time period is included. Sodium 136 135 - 148 mEq/L [facility] Potassium 5.2 (H) 3.5 - 5.0 mEq/L [facility] Chloride 103 98 - 112 mEq/L [facility] CO2 19 (L) 24 - 31 mEq/L [facility] Anion gap 14@ANIO 7 - 15 mEq/L [facility] BUN 38 (H) 8 - 23 mg/dL [facility] Creatinine 2.20 (H) 0.50 - 0.90 mg/dL [facility] Glucose 134 (H) 65 - 99 mg/dL [facility] Calcium 9.0 8.8 - 10.2 mg/dL [facility] Specimen Plasma specimen Performing Organization Address [facility] Phone Number [facility] DEPARTMENT OF PATHOLOGY AND [address] [place], [place] [id number] ECG 12 lead (01/27/2018 3:59 AM THERAPIST RADIATION)Only the most recent of8 resultswithin the time period is included. Ventricular rate 53 [facility] Atrial rate 53 [facility] WY interval 180 [facility] QRSD interval 146 [facility] QT interval 586 [facility] QTC interval 549 [facility] P axis 1 28 [facility] QRS axis 1 23 [facility] T wave axis 167 [facility] EKG impression Sinus bradycardia-Left bundle branch [facility] MUSE block-Abnormal ECG-In automated comparison with ECG of 26-JAN-2018 13:13,-No significant change was found- Narrative Performed At Performing Organization Address [facility] Phone Number [facility] MUSE [address] [place] [address] Creatinine level (01/26/2018 6:00 PM THERAPIST RADIATION) Creatinine 2.18 (H) 0.50 - 0.90 mg/dL [facility] Specimen Plasma specimen Performing Organization Address [facility] Phone Number [facility] DEPARTMENT OF PATHOLOGY AND [address] [place] [address] GENOMIC MEDICINE [address] [address] ECG Pre/Post Op (in AM) (01/26/2018 1:13 PM THERAPIST RADIATION)Only the most recent of2 resultswithin the time period is included. Ventricular rate 57 [facility] Atrial rate 57 [facility] WY interval 134 [facility] QRSD interval 142 [facility] QT interval 562 [facility] QTC interval 547 [facility] P axis 1 25 [facility] QRS axis 1 33 [facility] T wave axis 197 [facility] EKG impression Sinus bradycardia-Left bundle branch [facility]USE block-Abnormal ECG-In automated comparison with ECG of 26-JAN-2018 08:44,-No significant change was found- Narrative Performed At Performing Organization Address [facility] Phone Number [facility] MUSE [address] [place] [address] Cv supervisor laboratory animal facility procedure (01/26/2018 1:03 PM THERAPIST RADIATION) Narrative Performed At SURGEON:Sanjay Kebede MD MICHELLE CROSSING FLAGMAN:None. TITLE OF OPERATION: 1.Left heart catheterization, selective coronary arteriogram. 2.Percutaneous coronary intervention with medicated stent to left anterior descending (x2), circumflex obtuse marginal 1 (x2). 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 ANESTHESIA: Conscious sedation [...] difficulty using standard 18-gauge AMC needle. A 4-Swiss arterial sheath was chosen for access.A JL4 was utilized to visualize the left main coronary artery and its branches.The right coronary was not selectively injected as we knew from previous imaging that it was nondominant. The angiogram revealed that the left main had no significant disease.The proximal LAD had diffuse calcification without significant stenosis. Immediately after the first septal retail pharmacy manager, there was an eccentric 70% to 80% [...] reviewed, we proceeded with percutaneous intervention. The 4-Swiss sheath was exchanged for a 6-Swiss sheath.We then utilized a 6-Swiss EBU 3.75 diagnostic guide.The patient received Angiomax [...] to preexisting renal insufficiency. Performing Organization Address City/[facility] Phone Number [facility] [address] [place] [address] Activated clotting time (01/26/2018 12:07 PM THERAPIST RADIATION)Only the most recent of2 resultswithin the time period is included. Activated clotting time 302 (H) 96 - 152 sec [facility] Comment: HOSPITAL Meter ID: [id number] Ton Cylinder Inspector: Junito Perea Performing Organization Address City/[facility] Phone Number [facility] DEPARTMENT OF PATHOLOGY AND [address] [place] [address] GEN[address] [address] POC panel (01/26/2018 9:30 AM THERAPIST RADIATION) POC sodium 141 135 - 148 mmol/L [facility] POC potassium 4.8 3.5 - 5.0 mmol/L [facility] POC chloride 109 99 - 109 mmol/L [facility] POC CO2 21 (L) 24 - 31 mmol/L [facility] POC glucose 130 (H) 65 - 99 mg/dL [facility] POC BUN 41 (H) 8 - 24 mg/dL [facility] POC creatinine 2.3 (H) 0.5 - 0.9 mg/dl [facility] POC hematocrit 34 (L) 37 - 47 % [facility] POC anion gap 17 8 - 20 mmol/L [facility] Comment: Meter ID: [id number] Ton Cylinder Inspector: Mary Price Performing Organization Address [facility]/Zipcode Phone Number [facility] DEPARTMENT OF PATHOLOGY AND [address] [place] [address] GENOMIC MEDICINE [facility] [address] [place] [address] XR Femur 2 Vw Left (11/13/2017 9:34 [...] left femoral diaphyses, partially obscured. Vascular calcifications. [facility]-[id number] Procedure Note Interface, Radiology Results Incoming - 11/13/2017 9:50 AM CDT EXAMINATION: XR FEMUR 2 VW LEFT INDICATION: Fracture femur COMPARISON: 11/08/2017 IMPRESSION: Surgical changes status post proximal and distal plate and screw fixation. No evidence of acute hardware complication. Diffuse osteopenia. Healing fractures proximal and distal left femoral diaphyses, partially obscured. Vascular calcifications. [facility]-[id number] Performing Organization Address [facility] Phone Number [facility] [address] [place] [address] XR Wrist 2 Vw Left (11/12/2017 7:14 PM CDT)Only the most recent of2 resultswithin the time period is included. Narrative Performed At EXAMINATION:XR WRIST 2 VW LEFT RADIANT CLINICAL HISTORY:postop COMPARISON:To previous study from 11/07/2017. IMPRESSION: Internal fixation across a comminuted fracture of the distal radius has been placed. Comminuted fracture of the ulna is again noted. [facility]-[id number] Procedure Note Interface, Radiology Results Incoming - 11/12/2017 7:20 PM CDT EXAMINATION: XR WRIST 2 VW LEFT CLINICAL HISTORY: postop COMPARISON: To previous study from 11/07/2017. IMPRESSION: Internal fixation across a comminuted fracture of the distal radius has been placed. Comminuted fracture of the ulna is again noted. [facility]-[id number] Performing Organization Address [facility] Phone Number [facility] [address] [place] [address] XR Abdomen 1 Vw Portable (11/12/2017 3:53 PM CDT)Only the most recent of4 resultswithin the time period is included. Narrative Performed At EXAMINATION:XR ABDOMEN 1 VW PORTABLE RADIANT CLINICAL HISTORY:constipation COMPARISON:To previous examination from 11/09/2017 FINDINGS: Very large amount of feces is noted throughout the colon. There is no evidence of small bowel distention. IMPRESSION: Findings consistent with constipation. [facility]-[id number] Procedure Note Interface, Radiology Results Incoming - 11/12/2017 4:10 PM CDT EXAMINATION: XR ABDOMEN 1 VW PORTABLE CLINICAL HISTORY: constipation COMPARISON: To previous examination from 11/09/2017 FINDINGS: Very large amount of feces is noted throughout the colon. There is no evidence of small bowel distention. IMPRESSION: Findings consistent with constipation. [id number] Performing Organization Address [facility] Phone Number [facility] [address] [place] [address] XR Chest 1 Vw Portable (11/12/2017 6:11 AM CDT)Only the most recent of9 resultswithin the time period is included. Narrative Performed At EXAMINATION:XR CHEST 1 VW PORTABLE [facility] CLINICAL HISTORY: Ventilator Patient COMPARISON:11/11/2017 IMPRESSION: Right jugular line in place. Stable cardiomegaly with mild congestive failure and perihilar edema. Small effusions present. There is mild basilar volume loss. No pneumothorax. [id number] Procedure Note Interface, Radiology Results Incoming - 11/12/2017 7:52 AM CDT EXAMINATION: XR CHEST 1 VW PORTABLE CLINICAL HISTORY: Ventilator Patient COMPARISON: 11/11/2017 IMPRESSION: Right jugular line in place. Stable cardiomegaly with mild congestive failure and perihilar edema. Small effusions present. There is mild basilar volume loss. No pneumothorax. [facility]-[id number] Performing Organization Address [facility] Phone Number [facility] [address] [place] [address] Phosphorus level (11/12/2017 1:05 AM CDT)Only the most recent of17 resultswithin the time period is included. Phosphorus 4.4 2.4 - 4.5 mg/dL [facility] DEPARTMENT OF PATHOLOGY AND GENOMIC MEDICINE Specimen Plasma specimen Performing Organization Address [facility] Phone Number [facility] DEPARTMENT OF PATHOLOGY AND [address] [place] [address] Magnesium level (11/12/2017 1:05 AM CDT)Only the most recent of17 resultswithin the time period is included. Magnesium 1.9 1.6 - 2.4 mg/dL [facility] DEPARTMENT OF PATHOLOGY AND GENOMIC MEDICINE Specimen Plasma specimen Performing Organization Address [facility] Phone Number [facility] DEPARTMENT OF PATHOLOGY AND [address] [place] [address] Ionized calcium (11/12/2017 1:05 AM CDT)Only the most recent of11 resultswithin the time period is included. pH 7.43 [facility] DEPARTMENT OF PATHOLOGY AND GENOMIC MEDICINE Ionized calcium 1.15 1.11 - 1.32 mmol/L [facility] DEPARTMENT OF PATHOLOGY AND GENOMIC MEDICINE Specimen Plasma specimen Performing Organization Address [facility] Phone Number [facility] DEPARTMENT OF PATHOLOGY AND [address] [place] [address] Prothrombin time with INR (11/12/2017 12:50 AM CDT)Only the most recent of9 resultswithin the time period is included. Prothrombin time 15.3 (H) 12.0 - 15.0 sec [facility] DEPARTMENT OF PATHOLOGY AND GENOMIC MEDICINE INR 1.2 [facility] DEPARTMENT OF Comment: PATHOLOGY AND GENOMIC The International Normalized Ratio (INR) is a therapeutic MEDICINE monitoring tool for patients who are stable on oral anticoagulant therapy. An INR of 2.0-3.0 is suggested for deep vein thrombosis/pulmonary embolism. Specimen Blood Performing Organization Address [facility] Phone Number [facility] DEPARTMENT OF PATHOLOGY AND [address] [place] [address] Hemoglobin & hematocrit (11/11/2017 8:52 AM CDT)Only the most recent of6 resultswithin the time period is included. HGB 8.0 (L) 12.0 - 16.0 g/dL [facility] DEPARTMENT OF PATHOLOGY AND GENOMIC MEDICINE HCT 25.8 (L) 37.0 - 47.0 % [facility] DEPARTMENT OF PATHOLOGY AND GENOMIC MEDICINE Specimen Blood Performing Organization Address City/[facility] Phone Number [facility] DEPARTMENT OF PATHOLOGY AND [address] [place] [address] Troponin (11/10/2017 4:14 PM CDT)Only the most recent of14 resultswithin the time period is included. Troponin <0.30 0.00 - 0.30 ng/mL [facility] DEPARTMENT OF PATHOLOGY Comment: AND GENOMIC MEDICINE 0.30 - 1.49 ng/mlMay indicate increased risk of acute coronary syndrome. >=1.5 ng/mlConsistent with acute myocardial infarction. The diagnostic value of a single normal or non-diagnostic result is questionable.Serial samples at 2-6 hour intervals are required to rule out acute myocardial injury. Specimen Plasma specimen Performing Organization Address [facility] Phone Number [facility] DEPARTMENT OF PATHOLOGY AND [address] [place] [address] Arterial blood gas (11/10/2017 2:34 PM CDT)Only the most recent of7 resultswithin the time period is included. pH, arterial 7.46 (H) 7.35 - 7.45 [facility] DEPARTMENT OF PATHOLOGY AND GENOMIC MEDICINE pCO2, arterial 31 (L) 35 - 45 mmHg [facility] DEPARTMENT OF PATHOLOGY AND GENOMIC MEDICINE pO2, arterial 74 (L) 80 - 90 mmHg [facility] DEPARTMENT OF PATHOLOGY AND GENOMIC MEDICINE Bicarbonate, arterial 21.4 21.0 - 28.0 mmol/L [facility] DEPARTMENT OF PATHOLOGY AND GENOMIC MEDICINE Base excess, arterial -2 -2 - 2 mEq/L [facility] DEPARTMENT OF PATHOLOGY AND GENOMIC MEDICINE O2 saturation, arterial 99 95 - 100 % [facility] DEPARTMENT OF PATHOLOGY AND GENOMIC MEDICINE Specimen Blood Performing Organization Address [facility] Phone Number [facility] DEPARTMENT OF PATHOLOGY AND [address] [place] [id number] [place] [address] Ionized calcium, arterial (11/10/2017 3:00 AM CDT)Only the most recent of4 resultswithin the time period is included. Ionized calcium, arterial 1.05 (L) 1.11 - 1.32 mmol/L [facility] DEPARTMENT OF PATHOLOGY AND GENOMIC MEDICINE Specimen Blood Performing Organization Address City/[facility] Phone Number [facility] DEPARTMENT OF PATHOLOGY AND [address] [place] [address] Partial thromboplastin time, activated (11/10/2017 3:00 AM CDT)Only the most recent of13 resultswithin the time period is included. PTT 34.3 23.0 - 36.0 sec [facility] DEPARTMENT OF PATHOLOGY Comment: AND [facility] PTT therapeutic range for unfractionated heparin is 61.0-112.0 seconds which corresponds to Anti-Xa 0.3-0.7 U/ml. Specimen Blood Performing Organization Address [facility] Phone Number [facility] DEPARTMENT OF PATHOLOGY AND [address] [place] [address] Fibrinogen (11/10/2017 3:00 AM CDT) Fibrinogen 496 (H) 200 - 450 mg/dL [facility] DEPARTMENT OF PATHOLOGY AND [facility] Specimen Blood Performing Organization Address [facility] Phone Number [facility] DEPARTMENT OF PATHOLOGY AND [address] [place] [address] Echocardiogram 2d limited (11/08/2017 3:56 PM CDT) Narrative Performed At [facility] Echocardiography Report [address] [place] [address] Pat.Name:VIRI JEFFERSON Pat.ID:[id number] .Date: 11/08/2017 Refer.MD:ROSA LOPEZ MD Exam Time: 3:15:00 PMStudy Type:Routine Echo Height:65inWeight: 184lb BSA: 1.91 m2 DOBAge:1955,62Y Sex: FEMALEBP:174/72 HR:47 bpmSonogrphr: Jessie Del Rio RDCS Pat. Stat.:Inpatient Room:[place] [address] Study Status:Final Echo Event ID:[id number] Order ID:[id number] Reason for Study:Myocardial Ischemia/ Infarction - Eval of a patient without chest pain but with other features of an ischemic equivalent or laboratory markers indicative of ongoing AL History / Clinical:Diabetes, Hypertension, AL, Rheumatoid Arthritis Procedures:Strain, Portable, 2D Echo,Colorflow Doppler [...] LV filling pressures. MEASUREMENTS: 2D Parasternal Long Reliance LVOT 1.9 cmIVSd 1 cm Ao An2.1 cmLVPWd1.2 cm Ao Rtd 2.9 cmIndex1.5 cm/m LA Ds4 cm LVIDd5 cmIndex2.6 cm/m LV Uvum242.1 g(87-129) LVIDs3.6 cmLVM Xjzap861.4 g/m2 LV%fs 28 % RWT0.5 LA Sng Plane LA Area 21.1 cm2(8.8-23.4) LA Vol67.2 ml Index35.2 ml/m LA LngAx 5.2 cm RA Sng Plane RA Area 12.7 cm2(8.3-19.5) RA Vol30.3 ml Index15.9 ml/m RA LngAx 4.4 cm DOPPLER LVOT Stroke Vol LVOT 1.9 cmLVOT CO4.3 l/min LVOT TVI27.2 cmLVOT CI2.3 l/m/m2 LVOT Tm362 zujwFX25 bpm LVOT SV 77 ml WALL MOTION: RESTING WALL MOTION: Mid Inferoseptal, Apical Septal hernandez are hypokinetic.Basal Anterior, Basal Anteroseptal, Basal Inferoseptal, Mid Anterior, Mid Anteroseptal, Apical Anterior, Apical Inferior, Apical hernandez are mildly hypokinetic. Normal in all other hernandez. Wall Index=1.4 Signed 11/08/2017 05:21 PM Neil Santos M.D. Procedure Note Interface, Radiology Results In - 11/08/2017 5:22 PM CDT Echocardiography Report [address]Name: VIRI JEFFERSON Pat.ID: [id number] .Date: 11/08/2017 Refer.MD: ROSA LOPEZ MD Exam Time: 3:15:00 PM Study Type:Routine Echo Height: 65in Weight: 184lb BSA: 1.91 m2 Age: 7 1955,62Y Sex: FEMALE BP: 174/72 HR: 47 bpm Sonogrphr: Jessie Del Rio RDCS Pat. Stat.:Inpatient Room: [place] [address] Study Status:Final Echo Event ID:[id number] Order ID: [id number] Reason for Study:Myocardial Ischemia/ Infarction - Eval of a patient without chest pain but with other features of an ischemic equivalent or laboratory markers indicative of ongoing AL History / Clinical:Diabetes, Hypertension, AL, Rheumatoid Arthritis Procedures:Strain, Portable, 2D Echo,Colorflow Doppler [...] LV filling pressures. MEASUREMENTS: 2D Parasternal Long Reliance LVOT 1.9 cm IVSd 1 cm Ao [...] PM Neil Santos M.D. Performing Organization Address [facility]/Zipcode Phone Number [facility] [address] [place] [address] Pv duplex venous lower extremity (11/08/2017 3:54 PM CDT) Narrative Performed At [facility] Vascular Ultrasound Laboratory Lower Extremity Venous Report [address] [place] [address] Pat.Name:VIRI JEFFERSON Pat.ID:[id number] .Date: 11/08/2017 Refer.MD:ROSA LOPEZ MD Exam Time: 3:26:00 PMStudy Type:LE Venous DOBAge:1955,62YSex: FEMALE Sonogrphr: MONI Farr RCS Pat. Stat.:Inpatient Room:[facility] [id number]: MCKAYLA, CPT - 4: 32349 Echo Event ID:[id number] Order ID:[id number] Reason for Study:Pulmonary embolism suspected, high pretest [...] Vascular Ultrasound Laboratory Lower Extremity Venous Report [address] [place] [address] Pat.Name: VIRI JEFFERSON Pat.ID: [id number] .Date: 11/08/2017 Refer.MD: ROSA LOPEZ MD Exam Time: 3:26:00 PM Study Type:LE Venous Age: 7 1955,62Y Sex: FEMALE Sonogrphr: MONI Farr RCS Pat. Stat.:Inpatient Room: [facility] 0301-02 Tape Vol: MCKAYLA, CPT - 4: 78511 Echo Event ID:[id number] Order ID: [id number] Reason for Study:Pulmonary embolism suspected, high pretest [...] Organization Address City/State/Zipcode Phone Number [facility] [address] [place] [address] Urinalysis screen and microscopy, with reflex to culture (11/08/2017 3:25 PM CDT)Only the most recent of3 resultswithin the time period is included. Specimen site Catheterized [facility] DEPARTMENT OF PATHOLOGY AND GENOMIC MEDICINE Color, UA Yellow [facility] DEPARTMENT OF PATHOLOGY AND GENOMIC MEDICINE Appearance, UA Cloudy [facility] DEPARTMENT OF PATHOLOGY AND GENOMIC MEDICINE Specific gravity, UA 1.020 1.001 - 1.035 [facility] DEPARTMENT OF PATHOLOGY AND GENOMIC MEDICINE pH, UA 5.0 5.0 - 8.5 [facility] DEPARTMENT OF PATHOLOGY AND GENOMIC MEDICINE Protein, UA 2+ (A) Negative [facility] DEPARTMENT OF PATHOLOGY AND GENOMIC MEDICINE Glucose, UA 3+ (A) Negative [facility] DEPARTMENT OF PATHOLOGY AND GENOMIC MEDICINE Ketones, UA Trace (A) Negative [facility] DEPARTMENT OF PATHOLOGY AND GENOMIC MEDICINE Bilirubin, UA Negative Negative [facility] DEPARTMENT OF PATHOLOGY AND GENOMIC MEDICINE Blood, UA Moderate (A) Negative [facility] DEPARTMENT OF PATHOLOGY AND GENOMIC MEDICINE Nitrite, UA Negative Negative [facility] DEPARTMENT OF PATHOLOGY AND GENOMIC MEDICINE Urobilinogen, UA <2.0 <2.0 [facility] DEPARTMENT OF PATHOLOGY AND GENOMIC MEDICINE Leukocyte esterase, UA Negative Negative [facility] DEPARTMENT OF PATHOLOGY AND GENOMIC MEDICINE Epithelial cells, UA 1 /HPF [facility] DEPARTMENT OF PATHOLOGY AND GENOMIC MEDICINE WBC, UA 9 (H) 0 - 4 /HPF [facility] DEPARTMENT OF PATHOLOGY AND GENOMIC MEDICINE RBC, UA 5 0 - 5 /HPF [facility] DEPARTMENT OF PATHOLOGY AND GENOMIC MEDICINE Bacteria, UA Moderate (A) None seen [facility] DEPARTMENT OF PATHOLOGY AND GENOMIC MEDICINE Yeast, UA None seen [facility] DEPARTMENT OF PATHOLOGY AND GENOMIC MEDICINE Yeast with pseudohyphae, UA None seen [facility] DEPARTMENT OF PATHOLOGY AND GENOMIC MEDICINE Uric acid crystals, UA Few [facility] DEPARTMENT OF PATHOLOGY AND GENOMIC MEDICINE Specimen Urine Performing Organization Address City/[facility] Phone Number [facility] DEPARTMENT OF PATHOLOGY AND [address] [place] [address] MEDICINE Gram stain (11/08/2017 3:25 PM CDT)Only the most recent of4 resultswithin the time period is included. Gram stain result No WBC's or organisms seen. [facility] DEPARTMENT OF PATHOLOGY Comment: AND GENOMIC MEDICINE Specimen Information Specimen Source: Urine Specimen Site: Catheterized Specimen Urine - Catheterized Performing Organization Address [facility] Phone Number [facility] DEPARTMENT OF PATHOLOGY AND [address] [place] [address] Urine culture (11/08/2017 3:25 PM CDT)Only the most recent of3 resultswithin the time period is included. Urine culture isolate No growth after 2 days. [facility] DEPARTMENT OF Comment: PATHOLOGY AND GENOMIC Specimen Information MEDICINE Specimen Source: Urine Specimen Site: Catheterized Specimen Urine - Catheterized Performing Organization Address City/[facility]/Zipcode Phone Number [facility] DEPARTMENT OF PATHOLOGY AND [address] [place] [address] LDH (11/08/2017 12:52 PM CDT) LDH 271 (H) 87 - 225 U/L [facility] DEPARTMENT OF PATHOLOGY AND GENOMIC MEDICINE Specimen Plasma specimen Performing Organization Address City/[facility] Phone Number [facility] DEPARTMENT OF PATHOLOGY AND [address] [place] [address] Lactic acid level (11/08/2017 12:52 PM CDT)Only the most recent of2 resultswithin the time period is included. Lactic acid 0.9 0.5 - 2.2 mmol/L [facility] DEPARTMENT OF PATHOLOGY AND GENOMIC MEDICINE Specimen Plasma specimen Performing Organization Address City/[facility] Phone Number [facility] DEPARTMENT OF PATHOLOGY AND [address] [place] [address] [facility] MEDICINE Hepatic function panel (11/08/2017 12:52 PM CDT) Albumin 1.9 (L) 3.5 - 5.0 g/dL [facility] DEPARTMENT OF PATHOLOGY AND GENOMIC MEDICINE Total bilirubin 0.3 0.0 - 1.2 mg/dL [facility] DEPARTMENT OF PATHOLOGY AND GENOMIC MEDICINE Bilirubin direct <0.2 0.0 - 0.3 mg/dL [facility] DEPARTMENT OF PATHOLOGY AND GENOMIC MEDICINE Alkaline phosphatase 49 35 - 104 U/L [facility] DEPARTMENT OF PATHOLOGY AND GENOMIC MEDICINE Protein 5.7 (L) 6.3 - 8.3 g/dL [facility] DEPARTMENT OF Comment: PATHOLOGY AND GENOMIC 4.6-7.0 g/dL MEDICINE 1 week 4.4-7.6 g/dL 7 months-1year5.1-7.3 g/dL 1-2 years5.6-7.5 g/dL >3 years6.0-8.0 g/dL 18-150 6.3-8.3 g/dL ALT 20 5 - 50 U/L [facility] DEPARTMENT OF PATHOLOGY AND GENOMIC MEDICINE AST 16 10 - 35 U/L [facility] DEPARTMENT OF PATHOLOGY AND GENOMIC MEDICINE Specimen Plasma specimen Performing Organization Address [facility] Phone Number [facility] DEPARTMENT OF PATHOLOGY AND [address] [place] [address] [facility] [place] > I Hour (11/08/2017 11:43 AM CDT) Narrative Performed At IMPRESSION: C-arm fluoroscopy over 1 hour was provided in the OR for the [facility] referring physician. A radiologist was not present during the procedure. Refer to the Operative report issued by the performing provider for procedure details. [facility] OR 19 ROOM: 8 PROCEDURE: LEFT PROXIMAL [...] by the performing provider for procedure details. [facility] OR 19 ROOM: 8 PROCEDURE: LEFT PROXIMAL FEMUR ORIF START TIME: 0815 END TIME: 1140 FLUORO TIME: 1 MIN 45 SEC DOSAGE: 16.88 mGy Performing Organization Address [facility] Phone Number [facility] [address] [place] [address] [place] < 1 Hour (11/08/2017 11:40 AM CDT) Narrative Performed At IMPRESSION: C-arm fluoroscopy under one hour was provided in the OR for [facility] the referring physician. A radiologist was not present during the procedure. Refer to the Operative report issued by the performing provider for procedure details. [facility] OR 19 ROOM: 8 PROCEDURE: LEFT DISTAL [...] by the performing provider for procedure details. [facility] OR 19 ROOM: 8 PROCEDURE: LEFT DISTAL RAD[facility] ORIF START TIME: 1015 END TIME: 1140 FLUORO TIME: 1 MIN 45 SEC DOSAGE: 16.88 mGy TECH: GXA Performing Organization Address [facility] Phone Number [facility] [address] [place] [address] Fungus smear (11/08/2017 11:25 AM CDT) Fungus smear No fungi observed. [facility] DEPARTMENT OF PATHOLOGY AND Comment: [employer] MEDICINE Specimen Information Specimen Source: Incision Specimen Site: Wrist, left Specimen Incision - Wrist, left Performing Organization Address City/[facility] Phone Number [facility] DEPARTMENT OF PATHOLOGY AND [address] [place] [address] GENOMIC MEDICINE AFB culture (11/08/2017 11:25 AM CDT)Only the most recent of2 resultswithin the time period is included. AFB culture isolate No growth after 6 weeks of incubation. [facility] DEPARTMENT OF PATHOLOGY Comment: AND GENOMIC MEDICINE Specimen Information Specimen Source: Incision Specimen Site: Wrist, left Specimen Incision - Wrist, left Performing Organization Address [facility] Phone Number [facility] DEPARTMENT OF PATHOLOGY AND [address] [place] [address] GENOMIC MEDICINE Aerobic culture (11/08/2017 11:25 AM CDT)Only the most recent of2 resultswithin the time period is included. Aerobic culture isolate No growth after 3 days. [facility] DEPARTMENT OF Comment: PATHOLOGY AND GENOMIC Specimen Information MEDICINE Specimen Source: Incision Specimen Site: Wrist, left Specimen Incision - Wrist, left Performing Organization Address [facility] Phone Number [facility] DEPARTMENT OF PATHOLOGY AND [address] [place] [address] GENOMIC MEDICINE AFB stain (11/08/2017 11:25 AM CDT)Only the most recent of2 resultswithin the time period is included. AFB stain No acid fast bacilli (AFB) seen. [facility] DEPARTMENT OF PATHOLOGY AND Comment: GENOMIC MEDICINE Specimen Information Specimen Source: Incision Specimen Site: Wrist, left Specimen Incision - Wrist, left Performing Organization Address [facility] Phone Number [facility] DEPARTMENT OF PATHOLOGY AND [address] [place] [address] GENOMIC MEDICINE Fungus culture (11/08/2017 11:25 AM CDT) Fungus culture isolate No growth after 4 weeks of incubation. [facility] DEPARTMENT OF Comment: PATHOLOGY AND GENOMIC Specimen Information MEDICINE Specimen Source: Incision Specimen Site: Wrist, left Specimen Incision - Wrist, left Performing Organization Address [facility] Phone Number [facility] DEPARTMENT OF PATHOLOGY AND [address] [place] [address] GENOMIC MEDICINE Anaerobic culture (11/08/2017 11:25 AM CDT)Only the most recent of2 resultswithin the time period is included. Anaerobic culture No anaerobic organisms isolated. [facility] DEPARTMENT OF isolate Comment: PATHOLOGY AND GENOMIC Specimen Information MEDICINE Specimen Source: Incision Specimen Site: Wrist, left Specimen Incision - Wrist, left Performing Organization Address [facility] Phone Number [facility] DEPARTMENT OF PATHOLOGY AND [address] [place] [address] GENOMIC MEDICINE Sodium level, syringe (11/08/2017 10:45 AM CDT)Only the most recent of2 resultswithin the time period is included. Sodium, syringe 142 135 - 148 mEq/L [facility] DEPARTMENT OF PATHOLOGY AND GENOMIC MEDICINE Specimen Blood Performing Organization Address [facility] Phone Number [facility] DEPARTMENT OF PATHOLOGY AND [address] [place] [address] Potassium, syringe (11/08/2017 10:45 AM CDT)Only the most recent of2 resultswithin the time period is included. Potassium, syringe 5.1 (H) 3.5 - 5.0 mEq/L [facility] DEPARTMENT OF PATHOLOGY AND GENOMIC MEDICINE Specimen Blood Performing Organization Address [facility] Phone Number [facility] DEPARTMENT OF PATHOLOGY AND [address] [place] [address] MEDICINE Hemoglobin, syringe (11/08/2017 10:45 AM CDT)Only the most recent of2 resultswithin the time period is included. Hemoglobin, syringe 8.7 (L) 12.0 - 16.0 g/dL [facility] DEPARTMENT OF PATHOLOGY AND GENOMIC MEDICINE Specimen Blood Performing Organization Address [facility] [place] Phone Number [facility] DEPARTMENT OF PATHOLOGY AND [address] [place] [address] Glucose level, syringe (11/08/2017 10:45 AM CDT)Only the most recent of2 resultswithin the time period is included. Glucose, syringe 143 (H) 65 - 99 mg/dL [facility] DEPARTMENT OF PATHOLOGY AND GENOMIC MEDICINE Specimen Blood Performing Organization Address [facility] [place] Phone Number [facility] DEPARTMENT OF PATHOLOGY AND [address] [place] [address] Arterial blood gas, corrected (11/08/2017 10:45 AM CDT)Only the most recent of2 resultswithin the time period is included. pH, arterial 7.37 7.35 - 7.45 [facility] DEPARTMENT OF PATHOLOGY AND GENOMIC MEDICINE pCO2, arterial 40 35 - 45 mmHg [facility] DEPARTMENT OF PATHOLOGY AND GENOMIC MEDICINE pO2, arterial 99 (H) 80 - 90 mmHg [facility] DEPARTMENT OF PATHOLOGY AND GENOMIC MEDICINE Temperature, Celsius 36.5 Degrees C [facility] DEPARTMENT OF PATHOLOGY AND GENOMIC MEDICINE O2 saturation, arterial 97 95 - 100 % [facility] DEPARTMENT OF PATHOLOGY AND GENOMIC MEDICINE pH, arterial corrected 7.38 [facility] DEPARTMENT OF PATHOLOGY AND GENOMIC MEDICINE pCO2, arterial corrected 39 mmHg [facility] DEPARTMENT OF PATHOLOGY AND GENOMIC MEDICINE pO2, arterial corrected 97 mmHg [facility] DEPARTMENT OF PATHOLOGY AND GENOMIC MEDICINE Base excess, arterial -2 -2 - 2 mEq/L [facility] DEPARTMENT OF PATHOLOGY AND GENOMIC MEDICINE Specimen Blood Performing Organization Address City/[facility]/Zipcode Phone Number [facility] DEPARTMENT OF PATHOLOGY AND [address] [place] [address] GENOMIC MEDICINE POC panel 4 (11/08/2017 7:27 AM CDT) POC sodium 141 135 - 148 mmol/L [facility] DEPARTMENT OF PATHOLOGY AND GENOMIC MEDICINE POC potassium 5.3 (H) 3.5 - 5.0 mmol/L [facility] DEPARTMENT OF PATHOLOGY AND GENOMIC MEDICINE POC hematocrit 29 (L) 37 - 47 % [facility] DEPARTMENT OF PATHOLOGY Comment: AND GENOMIC MEDICINE Meter ID: [id number] Ton Cylinder Inspector: Denton Gamez POC glucose 133 (H) 65 - 99 mg/dL [facility] DEPARTMENT OF PATHOLOGY AND GENOMIC MEDICINE Performing Organization Address City/[facility] Phone Number [facility] DEPARTMENT OF PATHOLOGY AND [address] [place] [address] GENOMIC MEDICINE Prepare platelets (11/08/2017 4:30 AM CDT) Product name Apheresis PLT, Leukored IRR [facility] DEPARTMENT OF #2 PATHOLOGY AND GENOMIC MEDICINE Unit number [id number] [facility] DEPARTMENT OF PATHOLOGY AND GENOMIC MEDICINE Product code [id number] [facility] DEPARTMENT OF PATHOLOGY AND GENOMIC MEDICINE Dispense status Transfused [facility] DEPARTMENT OF PATHOLOGY AND GENOMIC MEDICINE Blood expiration date [facility] DEPARTMENT OF PATHOLOGY AND GENOMIC MEDICINE Blood type code 5100 [facility] DEPARTMENT OF PATHOLOGY AND GENOMIC MEDICINE Blood type O POSITIVE [facility] DEPARTMENT OF PATHOLOGY AND GENOMIC MEDICINE Performing Organization Address City/[facility] Phone Number [facility] DEPARTMENT OF PATHOLOGY AND [address] [place], [place] [id number] GENOMIC MEDICINE Prepare RBC (11/08/2017 4:30 AM CDT)Only the most recent of3 resultswithin the time period is included. Product name Red Blood Cells -1, [facility] DEPARTMENT OF Leukored PATHOLOGY AND GENOMIC MEDICINE Unit number [id number] [facility] DEPARTMENT OF PATHOLOGY AND GENOMIC MEDICINE Product code [id number] [facility] DEPARTMENT OF PATHOLOGY AND GENOMIC MEDICINE Dispense status Transfused [facility] DEPARTMENT OF PATHOLOGY AND GENOMIC MEDICINE Blood expiration date [facility] DEPARTMENT OF PATHOLOGY AND GENOMIC MEDICINE Blood type code 6200 [facility] DEPARTMENT OF PATHOLOGY AND GENOMIC MEDICINE Blood type A POSITIVE [facility] DEPARTMENT OF PATHOLOGY AND GENOMIC MEDICINE Product name Red Blood Cells -1, [facility] DEPARTMENT OF Leukored PATHOLOGY AND GENOMIC MEDICINE Unit number [id number] [facility] DEPARTMENT OF PATHOLOGY AND GENOMIC MEDICINE Product code [id number] [facility] DEPARTMENT OF PATHOLOGY AND GENOMIC MEDICINE Dispense status Transfused [facility] DEPARTMENT OF PATHOLOGY AND GENOMIC MEDICINE Blood expiration date [id number] [facility] DEPARTMENT OF PATHOLOGY AND GENOMIC MEDICINE Blood type code 6200 [facility] DEPARTMENT OF PATHOLOGY AND GENOMIC MEDICINE Blood type A POSITIVE [facility] DEPARTMENT OF PATHOLOGY AND GENOMIC MEDICINE Performing Organization Address City/[facility] [place] Phone Number [facility] DEPARTMENT OF PATHOLOGY AND [address] [place] [address] GENOMIC MEDICINE Type and screen (11/08/2017 4:30 AM CDT)Only the most recent of2 resultswithin the time period is included. ABO grouping A [facility] DEPARTMENT OF PATHOLOGY AND GENOMIC MEDICINE Rh type POS [facility] DEPARTMENT OF PATHOLOGY AND GENOMIC MEDICINE Antibody screen (gel) NEG [facility] DEPARTMENT OF PATHOLOGY AND GENOMIC MEDICINE Specimen Blood Performing Organization Address [facility] [place] Phone Number [facility] DEPARTMENT OF PATHOLOGY AND [address] [place], [place] [phone] [facility] MEDICINE Comprehensive metabolic panel (11/08/2017 4:00 AM CDT)Only the most recent of9 resultswithin the time period is included. Sodium 139 135 - 148 mEq/L [facility] DEPARTMENT OF PATHOLOGY AND GENOMIC MEDICINE Potassium 5.5 (H) 3.5 - 5.0 mEq/L [facility] DEPARTMENT OF PATHOLOGY AND GENOMIC MEDICINE Chloride 109 98 - 112 mEq/L [facility] DEPARTMENT OF PATHOLOGY AND GENOMIC MEDICINE CO2 17 (L) 24 - 31 mEq/L [facility] DEPARTMENT OF PATHOLOGY AND GENOMIC MEDICINE Anion gap 13@ANIO 7 - 15 mEq/L [facility] DEPARTMENT OF PATHOLOGY AND GENOMIC MEDICINE BUN 37 (H) 8 - 23 mg/dL [facility] DEPARTMENT OF PATHOLOGY AND GENOMIC MEDICINE Creatinine 1.76 (H) 0.50 - 0.90 mg/dL [facility] DEPARTMENT OF PATHOLOGY AND GENOMIC MEDICINE Glucose 131 (H) 65 - 99 mg/dL [facility] DEPARTMENT OF PATHOLOGY AND GENOMIC MEDICINE Calcium 7.6 (L) 8.8 - 10.2 mg/dL [facility] DEPARTMENT OF PATHOLOGY AND GENOMIC MEDICINE Protein 5.8 (L) 6.3 - 8.3 g/dL [facility] DEPARTMENT OF Comment: PATHOLOGY AND GENOMIC 4.6-7.0 g/dL MEDICINE 1 week 4.4-7.6 g/dL 7 months-1year5.1-7.3 g/dL 1-2 years5.6-7.5 g/dL >3 years6.0-8.0 g/dL 18-150 6.3-8.3 g/dL Albumin 1.9 (L) 3.5 - 5.0 g/dL [facility] DEPARTMENT OF PATHOLOGY AND GENOMIC MEDICINE A/G ratio 0.5 (L) 0.7 - 3.8 [facility] DEPARTMENT OF PATHOLOGY AND GENOMIC MEDICINE Alkaline phosphatase 53 35 - 104 U/L [facility] DEPARTMENT OF PATHOLOGY AND GENOMIC MEDICINE AST 25 10 - 35 U/L [facility] DEPARTMENT OF PATHOLOGY AND GENOMIC MEDICINE ALT 24 5 - 50 U/L [facility] DEPARTMENT OF PATHOLOGY AND GENOMIC MEDICINE Total bilirubin 0.3 0.0 - 1.2 mg/dL [facility] DEPARTMENT OF PATHOLOGY AND GENOMIC MEDICINE Specimen Plasma specimen Performing Organization Address City/[facility] Phone Number [facility] DEPARTMENT OF PATHOLOGY AND [address] [place] [phone] GENOMIC MEDICINE Manual differential (11/05/2017 4:15 AM CDT)Only the most recent of2 resultswithin the time period is included. Manual differential PERFORMED [facility] DEPARTMENT OF PATHOLOGY AND GENOMIC MEDICINE Neutrophils 74.0 (H) 39.0 - 69.0 % [facility] DEPARTMENT OF PATHOLOGY AND GENOMIC MEDICINE Lymphocytes 19.0 (L) 25.0 - 45.0 % [facility] DEPARTMENT OF PATHOLOGY AND GENOMIC MEDICINE Monocytes 4.0 0.0 - 10.0 % [facility] DEPARTMENT OF PATHOLOGY AND GENOMIC MEDICINE Eosinophils 2.0 0.0 - 5.0 % [facility] DEPARTMENT OF PATHOLOGY AND GENOMIC MEDICINE Basophils 0.0 0.0 - 1.0 % [facility] DEPARTMENT OF PATHOLOGY AND GENOMIC MEDICINE Metamyelocytes 0 % [facility] DEPARTMENT OF PATHOLOGY AND GENOMIC MEDICINE Promyelocytes 0 % [facility] DEPARTMENT OF PATHOLOGY AND GENOMIC MEDICINE Plasma cells 1 % [facility] DEPARTMENT OF PATHOLOGY AND GENOMIC MEDICINE Platelet slide review Dafne adequate [facility] DEPARTMENT OF PATHOLOGY AND GENOMIC MEDICINE Performing Organization Address City/State/Zipcode Phone Number [facility] DEPARTMENT OF PATHOLOGY AND [address] [place] [address] [facility] MEDICINE Cv supervisor laboratory animal facility procedure (11/03/2017 11:14 AM CDT) Narrative Performed At SURGEON: PETER Kebede MD. CROSSING FLAGMAN: Lucero Dunbar MD. PREOPERATIVE DIAGNOSES: 1.Acute non-ST elevation myocardial infarction. 2.Atherosclerotic vascular disease of the council coronaries. POSTOPERATIVE DIAGNOSES: 1.Acute non-ST elevation myocardial infarction. 2.Atherosclerotic vascular disease of the council coronaries. TITLE OF OPERATION: 1.Left heart catheterization, [...] using a standard 18-gauge AMC needle and 4-Swiss arterial sheath inserted for access.In sequential fashion, [...] to proceed with PTCA of the vessel.The 4-Swiss sheath was upsized with 6-Swiss.Utilizing a 6-Swiss XB LAD 3.5 guide, the left anterior [...] arteriotomy.The vessel was then closed with a 6-Swiss Perclose ProGlide system.The patient tolerated the procedure well and was transferred to the PACU for recovery.It is anticipated that her orthopedic surgery will be done next week.She will be hydrated over the weekend and we will watch for worsening of her preexisting renal insufficiency.The total contrast utilized was 50 mL of Visipaque. Performing Organization Address City/State/Zipcode Phone Number [facility] [address] [place] [address] Continuous EEG monitoring (10/31/2017 9:41 AM CDT) [...] (10/31/2017 1:15 AM CDT)Only the most recent of8 resultswithin the time period is included. GFR Non Af Amer 19 (A) mL/min/1.73 m2 [facility] DEPARTMENT OF PATHOLOGY AND GENOMIC MEDICINE GFR Af Amer 23 (A) mL/min/1.73 m2 [facility] DEPARTMENT OF Comment: PATHOLOGY AND GENOMIC Chronic [...] specimen Performing Organization Address City/State/Zipcode Phone Number [facility] DEPARTMENT OF PATHOLOGY AND [address] [place] [address] [facility] Vitamin D 25 hydroxy level (10/31/2017 12:40 AM CDT) Vitamin D, 25-hydroxy 25.0 (L) 30.0 - 150.0 [facility] DEPARTMENT OF Comment: ng/mL PATHOLOGY AND GENOMIC [...] alternative methods. Specimen Blood Narrative Performed At [facility] results called to and read back by [facility] DEPARTMENT OF PATHOLOGY AND GENOMIC FABIAN GALLARDO/Bob(name/location) MEDICINE at10/31/201702:03 (date/time) by KISHA. Performing Organization Address City/State/Zipcode Phone Number [facility] DEPARTMENT OF PATHOLOGY AND [address] [place] [address] [facility] CBC hemogram (10/31/2017 12:40 AM CDT) WBC 3.92 (L) 4.50 - 11.00 k/uL [facility] DEPARTMENT OF PATHOLOGY AND GENOMIC MEDICINE RBC 2.76 (L) 4.20 - 5.50 m/uL [facility] DEPARTMENT OF PATHOLOGY AND GENOMIC MEDICINE HGB 8.7 (L) 12.0 - 16.0 g/dL [facility] DEPARTMENT OF PATHOLOGY AND GENOMIC MEDICINE HCT 27.7 (L) 37.0 - 47.0 % [facility] DEPARTMENT OF PATHOLOGY AND GENOMIC MEDICINE MCV 100.4 (H) 82.0 - 100.0 fL [facility] DEPARTMENT OF PATHOLOGY AND GENOMIC MEDICINE MCH 31.5 27.0 - 34.0 pg [facility] DEPARTMENT OF PATHOLOGY AND GENOMIC MEDICINE MCHC 31.4 31.0 - 37.0 g/dL [facility] DEPARTMENT OF PATHOLOGY AND GENOMIC MEDICINE RDW - SD 46.4 37.0 - 55.0 fL [facility] DEPARTMENT OF PATHOLOGY AND GENOMIC MEDICINE MPV 11.4 8.8 - 13.2 fL [facility] DEPARTMENT OF PATHOLOGY AND GENOMIC MEDICINE Platelet count 140 (L) 150 - 400 k/uL [facility] DEPARTMENT OF PATHOLOGY AND GENOMIC MEDICINE Nucleated RBC 0.00 /100 WBC [facility] DEPARTMENT OF PATHOLOGY AND GENOMIC MEDICINE Performing Organization Address City/State/Zipcode Phone Number [facility] DEPARTMENT OF PATHOLOGY AND [address] [place] [address] GENOMIC MEDICINE Continuous EEG monitoring (10/31/2017 12:19 AM CDT) [...] No growth after 5 days of incubation. [facility] DEPARTMENT OF Comment: PATHOLOGY AND GENOMIC Specimen Information MEDICINE Specimen Source: Blood Specimen Site: Right Antecubital Specimen Blood Performing Organization Address City/State/Zipcode Phone Number [facility] DEPARTMENT OF PATHOLOGY AND [address] [place] [address] [facility] [address] Head Wo Contrast (10/29/2017 8:13 [...] No CT evidence of acute intracranial abnormality. [facility]-[id number] Procedure Note Interface, Radiology Results Incoming - [...] No CT evidence of acute intracranial abnormality. [facility]-[id number] Performing Organization Address City/State/Zipcode Phone Number [facility] [address] [place] [address] Echocardiogram complete w contrast and 3D if needed (10/29/2017 4:15 PM CDT) Narrative Performed At [facility] Echocardiography Report [address] [place] [address] Pat.Name:VIRI JEFFERSON Pat.ID:[id number] .Date: 10/29/2017Refer.MD:ROSA LOPEZ MD Exam Time: 2:53:00 PMStudy Type:Routine Echo Height:65inWeight: 176lb BSA: 1.88 m2 DOBAge:1955,62Y Sex: FEMALEBP:114/58 HR:90 bpmSonogrphr: Kavya Merritt RDCS Pat. Stat.:Inpatient Room:A9[facility] Study Status:Final Echo Event ID:[id number] Order ID:[id number] Reason for Study:Abnormal Heart Sound; Myocardial Ischemia/ Infarction - Eval of a patient without chest pain but with other features of an ischemic equivalent or laboratory markers indicative of ongoing AL; Preop History / Clinical:Diabetes, Hypertension, AL, Rheumatoid Arthritis Procedures:2D Echo, Colorflow Doppler, Portable, [...] PA systolic pressure. MEASUREMENTS: 2D Parasternal Long [place] Ao An1.8 cmLV%fs 23.8 % Ao Rtd 2.3 cmIndex1.2 cm/m IVSd 0.8 cm LVOT 1.8 cmLVPWd0.8 cm LA Ds4.3 cmLV Pbht553.5 g(87-129) LVIDd5.5 cmIndex2.9 cm/m LVM Index 84.3 g/m2 LVIDs4.2 cmRWT0.3 LV EF SinglePlane LV Ad 42.2 cm2(9.5-22.3) LVESV 66.2 ml Index35.2 ml/m GWVVM810.7 ml (59-136) Index88.7 ml/m LV SV100.5 ml [...] 10/29/2017 7:01 PM CDT Echocardiography Report [address] [place] [address] Pat.Name: VIRI JEFFERSON Pat.ID: [id number] .Date: 10/29/2017 Refer.MD: ROSA LOPEZ MD Exam Time: 2:53:00 PM Study Type:Routine Echo Height: 65in Weight: 176lb BSA: 1.88 m2 Age: 7 1955,62Y Sex: FEMALE BP: 114/58 HR: 90 bpm Sonogrphr: Kavya Merritt RDCS Pat. Stat.:Inpatient Room: A9[facility] Study Status:Final Echo Event ID:[id number] Order ID: [id number] Reason for Study:Abnormal Heart Sound; Myocardial Ischemia/ Infarction - Eval of a patient without chest pain but with other features of an ischemic equivalent or laboratory markers indicative of ongoing AL; Preop History / Clinical:Diabetes, Hypertension, AL, Rheumatoid Arthritis Procedures:2D Echo, Colorflow Doppler, Portable, [...] PA systolic pressure. MEASUREMENTS: 2D Parasternal Long [place] Ao An 1.8 cm LV%fs 23.8 % [...] PM Rober Morocho M.D. Performing Organization Address [facility] Phone Number [facility] [address] [place] [address] B natriuretic peptide (10/29/2017 1:15 PM CDT)Only the most recent of3 resultswithin the time period is included. BNP 468 (H) 0 - 100 pg/mL [facility] DEPARTMENT OF PATHOLOGY AND GENOMIC MEDICINE Specimen Blood Performing Organization Address [facility] Phone Number [facility] DEPARTMENT OF PATHOLOGY AND [address] [place] [address] [employer] MEDICINE Creatine kinase, total (CPK) (10/29/2017 12:52 PM CDT) Creatine kinase 376 (H) 26 - 192 U/L [facility] DEPARTMENT OF PATHOLOGY AND GENOMIC MEDICINE Specimen Plasma specimen Performing Organization Address [facility] [place] Phone Number [facility] DEPARTMENT OF PATHOLOGY AND [address] [place] [address] MEDICINE Sedimentation rate (10/29/2017 8:57 AM CDT) Sedimentation rate 87 (H) 0 - 20 mm/hr [facility] DEPARTMENT OF PATHOLOGY AND GENOMIC MEDICINE Specimen Blood Performing Organization Address [facility] Phone Number [facility] DEPARTMENT OF PATHOLOGY AND [address] [place] [address] Anti-neutrophilic cytoplasmic Abs panel (10/29/2017 8:56 AM CDT) ANCA screen Negative Negative [facility] DEPARTMENT OF PATHOLOGY AND GENOMIC MEDICINE Specimen Blood Performing Organization Address [facility] [place] Phone Number [facility] DEPARTMENT OF PATHOLOGY AND [address] [place] [address] Serum electrophoresis (10/29/2017 8:56 AM CDT) Protein 6.5 6.3 - 8.3 g/dL [facility] DEPARTMENT OF Comment: PATHOLOGY AND [place] 4.6-7.0 g/dL GENOMIC MEDICINE 1 week 4.4-7.6 g/dL 7 months-1year5.1-7.3 g/dL 1-2 years5.6-7.5 g/dL >3 years6.0-8.0 g/dL 18-150 6.3-8.3 g/dL SPE albumin 3.65 (L) 4.00 - 5.30 [facility] DEPARTMENT OF g/dL PATHOLOGY AND GENOMIC MEDICINE SPE alpha 1 0.29 (H) 0.10 - 0.25 [facility] DEPARTMENT OF g/dL PATHOLOGY AND GENOMIC MEDICINE SPE alpha 2 0.96 (H) 0.58 - 0.84 [facility] DEPARTMENT OF g/dL PATHOLOGY AND GENOMIC MEDICINE SPE beta 0.85 0.50 - 1.10 [facility] DEPARTMENT OF g/dL PATHOLOGY AND GENOMIC MEDICINE SPE gamma 0.76 0.60 - 1.30 [facility] DEPARTMENT OF g/dL PATHOLOGY AND GENOMIC MEDICINE SPE extended See Comment [facility] DEPARTMENT OF interpretation Comment: PATHOLOGY AND Albumin is decreased while the concentrations of alpha-1 globulins and GENOMIC MEDICINE alpha-2 globulins are increased indicating an acute phase response to infection, inflammation or tissue injury. SPE interpretation See CommentComment: [facility] DEPARTMENT OF Galina Mahoney MD; Bigg Singh PATHOLOGY AND Seb, PhD; Dee CARRILLO MEDICINE MD Lukasz Specimen Serum Performing Organization Address City/[facility]/Zipcode Phone Number [facility] DEPARTMENT OF PATHOLOGY AND [address] [place] [address] [facility] Thyroid stimulating hormone (10/29/2017 4:00 AM CDT)Only the most recent of2 resultswithin the time period is included. TSH 1.59 0.27 - 4.20 uIU/mL [facility] DEPARTMENT OF PATHOLOGY AND GENOMIC MEDICINE Specimen Plasma specimen Performing Organization Address City/[facility] Phone Number [facility] DEPARTMENT OF PATHOLOGY AND [address] [place] [address] [facility] US Renal (10/28/2017 6:15 PM CDT) Narrative Performed At EXAMINATION:US RENAL RADIANT CLINICAL HISTORY:Renal failureacute (kidney injury) COMPARISON:US renal [...] calculus. No right renal calculus. No hydronephrosis. [facility]-[id number] Procedure Note [facility], Radiology Results Incoming - 10/28/2017 7:22 PM [...] calculus. No right renal calculus. No hydronephrosis. [facility]-[id number] Performing Organization Address City/State/Zipcode Phone Number [facility] [address] [place] [address] CT Lower Extremity Wo Contrast Left (10/28/2017 4:51 PM CDT) Narrative Performed At EXAMINATION:CT LOWER EXTREMITY WO [facility]AST [facility] CLINICAL H[facility]ORY:Fracturefemur COMPARISON:Radiographs left femur dated 10/28/2017 [...] intact left femoral diametaphyseal internal fixation hardware. [facility]-[id number] Procedure Note Interface, Radiology Results Incoming - [...] intact left femoral diametaphyseal internal fixation hardware. [facility]-[id number] Performing Organization Address [facility] Phone Number [employer] [address] [place] [address] XR Chest 1 Vw (10/28/2017 3:48 PM CDT) Narrative Performed At EXAMINATION:XR CHEST 1 VW RADIANT CLINICAL HISTORY:Rib fx suspectedpost trauma COMPARISON:. IMPRESSION: There is cardiomegaly mediastinal widening.Pulmonary vasculature is mildly congested bilaterally with no significant infiltrate.There some patchy atelectasis at the left lung base.Spotty demineralization in the bones of the left humerus are noted. Multiple right ribs are identified with callus formation. [facility]-[id number] Procedure Note Interface, Radiology Results Incoming - [...] right ribs are identified with callus formation. [facility]-[id number] Performing Organization Address [facility] Phone Number [employer] [address] [place] [address] XR Ribs 2 Vw Left (10/28/2017 3:47 [...] humerus. 4.Left lower lobe atelectasis. No pneumothorax. [facility]-[id number] Procedure Note Interface, Radiology Results Incoming - 10/28/2017 3:55 PM [...] 4. Left lower lobe atelectasis. No pneumothorax. [id number] Performing Organization Address [facility] Phone Number [facility] [address] [place] [address] Urine protein electrophoresis, random (10/28/2017 12:16 PM CDT) Urine protein concentration 420 mg/dL [facility] DEPARTMENT OF PATHOLOGY AND GENOMIC MEDICINE UPE albumin 75.9 % [facility] DEPARTMENT OF PATHOLOGY AND GENOMIC MEDICINE UPE globulin 24.1 % [facility] DEPARTMENT OF PATHOLOGY AND GENOMIC MEDICINE UPE extended interpretation See Comment [facility] DEPARTMENT OF Comment: PATHOLOGY AND GENOMIC An abnormal random urine protein study with proteinuria equivalent to 4.2 MEDICINE g/L, which is in the nephrotic syndrome range. The proteinuria is in a glomerular pattern. UPE interpretation See CommentComment: [facility] DEPARTMENT OF Galina Mahoney MD; [facility] Seb, PhD; Dee Lal MD Specimen Urine Performing Organization Address [facility] Phone Number [facility] DEPARTMENT OF PATHOLOGY AND [address] [place] [id number] [facility] [place] lambda free light chain with ratio (10/28/2017 12:16 PM CDT) [place] light chain 105.54 (H) 3.30 - 19.40 mg/L [facility] DEPARTMENT OF PATHOLOGY AND GENOMIC MEDICINE Lambda light chain 41.87 (H) 5.70 - 26.30 mg/L [facility] DEPARTMENT OF PATHOLOGY AND GENOMIC MEDICINE [place] lambda ratio 2.52 (H) 0.26 - 1.65 [facility] DEPARTMENT OF PATHOLOGY AND GENOMIC MEDICINE Specimen Plasma specimen Performing Organization Address [facility] Phone Number [facility] DEPARTMENT OF PATHOLOGY AND [address] [place] [address] C3 complement component (10/28/2017 12:16 PM CDT) C3 complement 131 90 - 180 mg/dL [facility] DEPARTMENT OF PATHOLOGY AND [facility] MEDICINE Specimen Plasma specimen Performing Organization Address [facility] Phone Number [facility] DEPARTMENT OF PATHOLOGY AND [address] [place] [address] C4 complement component (10/28/2017 12:16 PM CDT) C4 complement 21 10 - 40 mg/dL [facility] DEPARTMENT OF PATHOLOGY AND [facility] MEDICINE Specimen Plasma specimen Performing Organization Address [facility] Phone Number [facility] DEPARTMENT OF PATHOLOGY AND [address] [place] [address] Hemoglobin A1c (10/28/2017 4:15 AM CDT) Hemoglobin A1C 7.9 (H) 4.0 - 5.6 % [facility] DEPARTMENT OF PATHOLOGY Comment: AND GENOMIC MEDICINE HbA1c cutoffs for diagnosing diabetes: 4.0% - 5.6%=normal 5.7% - 6.4%=increased risk for diabetes (prediabetes) >=6.5%=diabetes Goals for glycemic control (ADA 2016) < 7.0%Target for non adults with diabetes. More or less stringent targets may be appropriate for individual patients. <7.5% Target for Children and adolescents with type 1 diabetes. Specimen Blood Performing Organization Address [facility] Phone Number [facility] DEPARTMENT OF PATHOLOGY AND [address] [place] [address] Transfuse platelets (10/25/2017 5:26 PM CDT)Only the most recent of3 resultswithin the time period is included.Transfuse RBC (10/25/2017 5:26 PM CDT )Only the most recent of3 resultswithin the time period is included.General sleep study (09/05/2017 6:21 AM CDT) Narrative Performed At General sleep study (08/01/2017 7:17 AM CDT) Narrative Performed At after 03/01/2017 Insurance Payer Benefit Plan / Group Subscriber ID Type Phone Address MEDICARE MEDICARE PART A AND B xxxxxxxxxx Medicare [place], [place] MEDICAID MEDICAID xxxxxxxxx Medicaid Advance Directives Patient has advance care planning documents, and code status on file. For more information, please contact:Cesar Harris[address] [place] [address] Code Status Date Activated Date Inactivated Comments [...]
[2018-03-02] MEDS ORDERED: ONDANSETRON 4 MG/2 ML VIAL IV PRN (18:17)
[2018-03-02] MEDS ORDERED: ACETAMINOPHEN 500 MG TAB PO PRN (18:17)
[2018-03-02] MEDS ORDERED: HYDRALAZINE HCL 20 MG/ML VIAL IV PRN (18:25)
--- NOTE | 2018-03-02 18:48 | P.HP ---
Certification for Inpatient Patient admitted to: Inpatient With expected LOS: >2 Midnights Practitioner: I am a practitioner with admitting privileges, knowledge of patient current condition, hospital course, and medical plan of care. Services: Services provided to patient in accordance with Admission requirements found in Title 42 Section 412.3 of the Code of Federal Regulations Patient History Date of Service: 03/02/18 Reason for admission: AMS, uncontrolled HTN History of Present Illness: Pt is a 62 yo F w PMHx of DM, HTN, CKD, CAD who was requested to be admitted from rehab by Dr. Collins. Patient was DC to rehab recently from the hospital after Acute on chronic kidney injury. Patient was found to be hypertensive, altered and therefore requested to be transferred to the floor. Pts symptoms are constant, moderate and progressively worsening. Daughter requesting transfer to [facility] - her play back operator is Dr. Jah Kebede. Allergies Penicillins Allergy (Severe, Verified 02/19/18 16:10) Anaphylaxis Home medications list reviewed: Yes Home Medications: Atorvastatin Calcium [Lipitor*] 20 mg PO BEDTIME tab 03/02/18 Bisacodyl [Dulcolax*] 10 mg [place] DAILY PRN supp 03/02/18 Calcitrol [Rocaltrol*] 0.5 mcg PO DAILY cap 03/02/18 Carvedilol [Coreg*] 12.5 mg PO BID 6AM 6PM tab 03/02/18 Cholecalciferol (Vitamin D3) [Vitamin D 5,000 IU Cap*] 5,000 unit PO DAILY cap 03/02/18 Clopidogrel Bisulfate [Plavix*] 75 mg PO DAILY tablet 03/02/18 Cyanocobalamin [Vitamin B-12*] 1,000 mcg PO DAILY tab 03/02/18 Docusate/Senna [Senokot-S*] 2 tab PO BEDTIME tab 03/02/18 Ferrous Sulfate [Ferrous Sulfate*] 325 mg PO DAILY tab 03/02/18 Hydralazine [Apresoline*] 10 mg IV Q6HP PRN vial 03/02/18 Hydralazine [Apresoline*] 50 mg PO TID tab 03/02/18 Hydrocodone 5/APAP 325 [[place] 5/325*] 1 tab PO Q6HP PRN tab 03/02/18 Insulin -Regular Human [Novolin -R*] See Protocol SQ ACHS ml 03/02/18 Iron/FA/Vit B-Com W/C [Hemocyte Plus*] 1 tab PO DAILY WITH BREAKFAST tab Lactulose [Cephulac*] 30 ml PO BID PRN ucup 03/02/18 Magic Mouthwash [Magic Mouthwash*] 15 ml PO QID PRN btl 03/02/18 Magnesium Oxide [Mag 0X*] 400 mg PO BID tab 03/02/18 Meclizine HCl [Antivert*] 25 mg PO TID PRN tab 03/02/18 Melatonin [Melatonin*] 3 mg PO BEDTIME PRN PRN tablet 03/02/18 Memantine HCl [Namenda*] 10 mg PO BID tablet 03/02/18 Ondansetron [Zofran (Odt)*] 4 mg PO Q6H PRN tab 03/02/18 PARoxetine HCl [Paxil*] 40 mg PO DAILY tab 03/02/18 Polyethyl Gly 3350 [Glycolax*] 17 gm PO DAILY udbot 03/02/18 cloNIDine HCl [Catapres*] 0.1 mg PO Q4H PRN tab 03/02/18 glipiZIDE [Glucotrol*] 2.5 mg PO DAILY WITH BREAKFAST tab 03/02/18 traMADol HCL [Ultram*] 50 mg PO TIDP PRN tab 03/02/18 - Past Medical/Surgical History Diabetic: Yes -: anxiety -: seizures -: high cholesterol -: hypertension -: depression -: diabetes mellitus -: stents x2 -: kidney stones -: left leg -: left foot -: left wrist - Family History Family History: Reviewed- Non-Contributory - Social History Smoking Status: Never smoker Alcohol use: No CD- Drugs: No Caffeine use: Yes Review of Systems 10-point ROS is otherwise unremarkable Neurological: As per HPI Physical Examination - Vital Signs Temperature: 97.2 F Blood Pressure: 164/63 Pulse: 61 Respirations: 16 Pulse Ox (%): 93 - Physical Exam General: Alert, In no apparent distress, Oriented x3, Confused, Obese HEENT: Atraumatic, PERRLA, Mucous membr. moist/pink, EOMI, Sclerae nonicteric Neck: Supple, 2+ carotid pulse no bruit Respiratory: Diminished, Crackles/rales Cardiovascular: Normal pulses, Regular rate/rhythm, Normal S1 S2, Edema Gastrointestinal: Normal bowel sounds, Soft and benign, Non-distended, No tenderness Musculoskeletal: No clubbing, No tenderness Integumentary: No rashes, No erythema Neurological: Normal gait, Normal speech, Normal strength at 5/5 x4 extr, Normal tone, Cranial nerves 3-12 intact, Normal affect - Studies labs reviewed Imagings Data: head CT negative Assessment and Plan - Problems (Diagnosis) (1) Acute kidney injury superimposed on CKD Onset Date: 02/15/18 Current Visit: No Status: Acute (2) Acute metabolic encephalopathy Current Visit: Yes Status: Acute (3) HTN (hypertension) Current Visit: Yes Status: Acute Qualifiers: Hypertension type: essential hypertension Qualified Code(s): I10 - Essential (primary) hypertension (4) Obesity (BMI 30.0-34.9) Current Visit: Yes Status: Acute (5) Closed minimally displaced zone I fracture of sacrum Current Visit: No Status: Acute Qualifiers: Encounter type: subsequent encounter Fracture healing: with routine healing Qualified Code(s): S32.111D - Minimally displaced Zone I fracture of sacrum, subsequent encounter for fracture with routine healing (6) Diabetes mellitus Onset Date: 02/15/18 Current Visit: No Status: Acute Qualifiers: Diabetes mellitus type: type 2 Diabetes mellitus [facility] insulin use: without ferry terminal supervisor use Diabetes mellitus complication status: with hyperglycemia Qualified Code(s): E11.65 - Type 2 diabetes mellitus with hyperglycemia (7) Hyperkalemia Onset Date: 02/15/18 Current Visit: No Status: Acute - Plan Prn HTN meds sliding scale insulin Head CT scan negative Nephrology consultation LAsix IV [facility] Discharge Plan: Transfer - Advance Directives Does patient have a Living Will: No Does patient have a Durable POA for Healthcare: No
--- NOTE | 2018-03-02 19:14 | P.CNS ---
Date of Consult: 03/02/18 Reason for Consult: ZOILA Requesting Physician: Erica Craig Chief Complaint: AMS, uncontrolled HTN History of Present Illness: Ms. Jefferson is a 62-year-old female who is being seen as part of the acute rehabilitation service after suffering a sacral fracture. Our consultation was requested as the patient has had history of chronic kidney disease as well as having acute electrolyte abnormalities. The patient has a past Medical history of coronary artery disease status post stent placement last month. She has a known history of chronic kidney disease secondary to suspected diabetic nephropathy, protein urea. She states that she had been seen only by Dr. Quiroga here last month in the hospital in terms of renal function. Her primary care doctor at [facility]. Reviewing her labs, she does have a baseline creatinine of 1.8-2.2 based on review of the labs over the past 1 year. Pt is a 62 yo F w PMHx of DM, HTN, CKD, CAD who was requested to be admitted from rehab by Dr. Collins. Patient was DC to rehab recently from the hospital after Acute on chronic kidney injury. Patient was found to be hypertensive, altered and therefore requested to be transferred to the floor. Pts symptoms are constant, moderate and progressively worsening. Daughter requesting transfer to [facility] - her senior mortgage loan processor is Dr. Jah Kebede. Allergies Penicillins Allergy (Severe, Verified 02/19/18 16:10) Anaphylaxis Home medications list reviewed: Yes Home Medications: Atorvastatin Calcium [Lipitor*] 20 mg PO BEDTIME tab 03/02/18 Bisacodyl [Dulcolax*] 10 mg [place] DAILY PRN supp 03/02/18 Calcitrol [Rocaltrol*] 0.5 mcg PO DAILY cap 03/02/18 Carvedilol [Coreg*] 12.5 mg PO BID 6AM 6PM tab 03/02/18 Cholecalciferol (Vitamin D3) [Vitamin D 5,000 IU Cap*] 5,000 unit PO DAILY cap 03/02/18 Clopidogrel Bisulfate [Plavix*] 75 mg PO DAILY tablet 03/02/18 Cyanocobalamin [Vitamin B-12*] 1,000 mcg PO DAILY tab 03/02/18 Docusate/Senna [Senokot-S*] 2 tab PO BEDTIME tab 03/02/18 Ferrous Sulfate [Ferrous Sulfate*] 325 mg PO DAILY tab 03/02/18 Hydralazine [Apresoline*] 10 mg IV Q6HP PRN vial 03/02/18 Hydralazine [Apresoline*] 50 mg PO TID tab 03/02/18 Hydrocodone 5/APAP 325 [[place] 5/325*] 1 tab PO Q6HP PRN tab 03/02/18 Insulin -Regular Human [Novolin -R*] See Protocol SQ ACHS ml 03/02/18 Iron/FA/Vit B-Com W/C [Hemocyte Plus*] 1 tab PO DAILY WITH BREAKFAST tab Lactulose [Cephulac*] 30 ml PO BID PRN ucup 03/02/18 Magic Mouthwash [Magic Mouthwash*] 15 ml PO QID PRN btl 03/02/18 Magnesium Oxide [Mag 0X*] 400 mg PO BID tab 03/02/18 Meclizine HCl [Antivert*] 25 mg PO TID PRN tab 03/02/18 Melatonin [Melatonin*] 3 mg PO BEDTIME PRN PRN tablet 03/02/18 Memantine HCl [Namenda*] 10 mg PO BID tablet 03/02/18 Ondansetron [Zofran (Odt)*] 4 mg PO Q6H PRN tab 03/02/18 PARoxetine HCl [Paxil*] 40 mg PO DAILY tab 03/02/18 Polyethyl Gly 3350 [Glycolax*] 17 gm PO DAILY udbot 03/02/18 cloNIDine HCl [Catapres*] 0.1 mg PO Q4H PRN tab 03/02/18 glipiZIDE [Glucotrol*] 2.5 mg PO DAILY WITH BREAKFAST tab 03/02/18 traMADol HCL [Ultram*] 50 mg PO TIDP PRN tab 03/02/18 - Past Medical/Surgical History Diabetic: Yes -: anxiety -: seizures -: high cholesterol -: hypertension -: depression -: diabetes mellitus -: stents x2 -: kidney stones -: left leg -: left foot -: left wrist - Social History Smoking Status: Unknown if ever smoked Alcohol use: No CD- Drugs: No Caffeine use: Yes Review of Systems 10-point ROS is otherwise unremarkable General: Weakness, Malaise Gastrointestinal: Nausea Neurological: Weakness, Confusion Physical Examination Temp Pulse Resp BP Pulse Ox 97.2 F 61 16 164/63 H 93 03/02/18 18:58 03/02/18 18:58 03/02/18 18:58 03/02/18 18:58 03/02/18 18:58 General: Alert, Cooperative, Disheveled, Mild distress HEENT: Atraumatic Neck: Supple, No LAD Respiratory: Clear to auscultation bilaterally, Normal air movement Cardiovascular: Regular rate/rhythm, Edema Gastrointestinal: Soft and benign, Non-distended Musculoskeletal: No clubbing, No contractures Integumentary: No rashes, No cyanosis Neurological: Normal speech, Abnormal strength Cr 2.53; Hgb 8.6 Blood work reviewed in the chart. Imagings Data: EXAM DESCRIPTION: Michelle Single View02/24/2018 7:44 pm CLINICAL HISTORY: Shortness of breath COMPARISON: February 14, 2018 FINDINGS: The lungs appear clear of acute infiltrate. The heart is mildly to moderately enlarged IMPRESSION: No acute abnormalities displayed Conclusions/Impression: A/ ZOILA/ CKD III. Proteinuria. DM II with CKD. HTN with CKD. LE Edema. Anemia in chronic illness. Iron deficiency. Acidosis. Hypokalemia. Hyperkalemia. Hypocalcemia. AMS. P/ Continue current POC and Medications other than the changes listed below. AM labs. Daily weight. No NSAIDs. Low sodium diet. PT as tolerated. Restart diuretic therapy. Case discussed with Dr. Craig. Agree with transfer to [facility].
[2018-03-02] MEDS ORDERED: METOLAZONE 5 MG TABLET PO SCH (20:00)
[2018-03-02] MEDS: DOXAZOSIN 2 MG TAB PO SCH (22:10)
[2018-03-02 23:42] VITALS: BMI 29.9
[2018-03-03 06:29] LABS: Absolute Lymphocytes (CBC) 1.4 K/uL (0.7-4.9); Absolute Monocytes 0.5 K/uL (0.1-1.3); Absolute Neutrophil 2.3 K/uL (1.8-8.0); Basophils % 0.8 % (0-1.3); Eosinophils % 3.6 % (0-4.4); Hematocrit 26.8 % (36.0-45.0); Lymphocytes % 31.7 % (15.3-44.8); MPV 8.3 fL (7.6-11.3); Monocytes % 10.7 % (3.3-12.3); RBC Red Blood Cell Count 2.79 M/uL (3.86-4.86)
[2018-03-03 06:39] LABS: Bilirubin Total 0.4 mg/dL (0.2-1.0); Potassium 4.7 mmol/L (3.5-5.1); Protein, Total 6.9 g/dL (6.4-8.2); Uric Acid 5.2 mg/dL (2.6-6.0)
[2018-03-03 06:40] LABS: Urine Appearance CLEAR; Urine Bilirubin NEGATIVE (NEG); Urine Blood NEGATIVE (NEG); Urine Color YELLOW; Urine Glucose NEGATIVE (NEG); Urine Protein 2+ (NEG); Urine Urobilinogen 0.2 mg/dL (0.2-1.0); Urine pH 7.5 (5.0-7.0)
[2018-03-03 07:05] LABS: Urine Bacteria <20 /HPF (<20); Urine Culture Reflex Order NOT NEEDED; Urine RBC NONE SEEN /HPF (NONE SEEN)
[2018-03-03] MEDS ORDERED: INFLUENZA VACCINE (for 3y+) 0.5 ML DOSE IMVAC ONE (08:00)
[2018-03-03] MEDS: FUROSEMIDE 40 MG TABLET PO SCH ×2 (09:00→18:07)
[2018-03-03] MEDS: DOXAZOSIN 2 MG TAB PO SCH (09:00)
--- NOTE | 2018-03-03 10:03 | P.PN ---
Date of Service: 03/03/18 Vital Signs Temp Pulse Resp BP Pulse Ox 97.7 F 59 18 155/59 H 92 03/03/18 08:00 03/03/18 09:00 03/03/18 08:00 03/03/18 09:00 03/03/18 08:00 Medications Acetaminophen (Tylenol -Extra Strength) 500 mg PO Q4HP PRN PRN Reason: [id number] Stop: 04/01/18 18:18 Last Admin: 03/03/18 01:57 Dose: 500 mg Doxazosin Mesylate (Cardura) 2 mg PO BID [facility] Stop: 04/01/18 21:01 Last Admin: 03/03/18 09:00 Dose: 2 mg Furosemide (Lasix) 40 mg PO BIDL [facility] Stop: 04/02/18 09:01 Last Admin: 03/03/18 09:00 Dose: 40 mg Hydralazine HCl (Apresoline) 10 mg IV Q4HP PRN PRN Reason: HIGH BP Stop: 04/01/18 18:26 Metolazone (Zaroxolyn) 10 mg PO 1X [facility] Stop: 04/01/18 20:01 Last Admin: 03/02/18 22:11 Dose: 10 mg Ondansetron HCl (Zofran) 4 mg IV Q4H PRN PRN Reason: NAUSEA / VOMITING Stop: 04/01/18 18:18 Sodium Chloride (Normal Saline Flush) 10 ml IV BID [facility] Stop: 04/01/18 21:01 Last Admin: 03/03/18 09:01 Dose: 10 ml Lab Results (last 24 hrs) 03/03/18 07:46: POC Glucose 100 03/03/18 06:00: Urine Color Yellow, Urine Appearance Clear, Urine pH 7.5 H, Ur Specific [place] 1.010, Urine Ketones Negative, Urine Blood Negative, Urine Nitrite Negative, Urine Bilirubin Negative, Urine Urobilinogen 0.2, Ur Leukocyte Esterase Negative, Urine RBC None seen, Urine WBC <5, Ur Squamous Epith Cells <5, Urine Bacteria <20, Urine Culture Reflexed Not needed, Urine Glucose Negative, Urine Total Protein 2+ H 03/03/18 06:00: Ur Random Sodium 91 03/03/18 06:00: Urine Creatinine 25.0 03/03/18 05:46: Sodium 142, Potassium 4.7, Chloride 110 H, Carbon Dioxide 28, BUN 49 H, Creatinine 2.48 H, Estimated GFR 20 L, Glucose 95, Uric Acid 5.2, Calcium 8.4 L, Total Bilirubin 0.4, AST 15, ALT 14, Alkaline Phosphatase 117, Serum Total Protein 6.9, Albumin 3.0 L, Globulin 3.9 H, Albumin/Globulin Ratio 0.8 L 03/03/18 05:46: WBC 4.3, RBC 2.79 L, Hgb 8.9 L, Hct 26.8 L, MCV 96.0, MCH 31.7, MCHC 33.0, RDW 15.3 H, Plt Count 273 D, MPV 8.3, Neutrophils % 53.2, Lymphocytes % 31.7, Monocytes % 10.7, Eosinophils % 3.6, Basophils % 0.8, Absolute Neutrophils 2.3, Absolute Lymphocytes 1.4, Absolute Monocytes 0.5, Absolute Eosinophils 0.2, Absolute Basophils 0.0 Assessment/ Plan: General: Alert, Cooperative, Disheveled, Mild distress HEENT: Atraumatic Neck: Supple, No LAD Respiratory: Clear to auscultation bilaterally, Normal air movement Cardiovascular: Regular rate/rhythm, Edema Gastrointestinal: Soft and benign, Non-distended Musculoskeletal: No clubbing, No contractures Integumentary: No rashes, No cyanosis Neurological: Normal speech, Abnormal strength Cr 2.53; Hgb 8.6 Blood work reviewed in the chart. Imagings Data: EXAM DESCRIPTION: Michelle Single View02/24/2018 7:44 pm CLINICAL HISTORY: Shortness of breath COMPARISON: February 14, 2018 FINDINGS: The lungs appear clear of acute infiltrate. The heart is mildly to moderately enlarged IMPRESSION: No acute abnormalities displayed Conclusions/Impression: A/ ZOILA/ CKD III. Proteinuria. DM II with CKD. HTN with CKD. LE Edema. Anemia in chronic illness. Iron deficiency. Acidosis. Hypokalemia. Hyperkalemia. Hypocalcemia. AMS. P/ Continue current POC and Medications other than the changes listed below. AM labs. Daily weight. No NSAIDs. Low sodium diet. PT as tolerated. Continue diuretic therapy. Insert Narayan due to approximately 300ml PVR. Bladder outlet obstruction? Possible transfer soon to higher level facility. Case discussed with her daughter.
[2018-03-03] MEDS ORDERED: BISACODYL 10 MG RECTAL SUPP PR PRN (10:58)
[2018-03-03] MEDS ORDERED: cloNIDine HCl 0.1 MG TAB PO PRN (10:58)
[2018-03-03] MEDS ORDERED: D50W 25 GM/50 ML SYRINGE IV PRN (13:48)
[2018-03-03] MEDS ORDERED: GLUCAGON 1 MG/VIAL IM PRN (13:48)
--- NOTE | 2018-03-03 13:48 | P.PN ---
Subjective Date of Service: 03/03/18 Chief Complaint: AMS, uncontrolled HTN Subjective: Improving (Pt more awake and alert. Daughter at bedside. Case discussed w RN and Dr. Darling) Review of Systems 10-point ROS is otherwise unremarkable Physical Examination - Vital Signs Temperature: 97 F Blood Pressure: 152/79 Pulse: 62 Respirations: 18 Pulse Ox (%): 93 - Physical Exam General: Alert, In no apparent distress, Oriented x3, Obese HEENT: Atraumatic, PERRLA, EOMI Neck: Supple, JVD not distended Respiratory: Diminished, Crackles/rales Cardiovascular: Regular rate/rhythm, Normal S1 S2, Edema Gastrointestinal: Normal bowel sounds, Soft and benign, Non-distended, No tenderness Musculoskeletal: No clubbing, No tenderness Integumentary: No rashes Neurological: Normal speech, Normal strength at 5/5 x4 extr, Normal tone, Normal affect - Studies Laboratory Data (last 24 hrs) 03/03/18 05:46: Sodium 142, Potassium 4.7, BUN 49 H, Creatinine 2.48 H, Glucose 95, Uric Acid 5.2, Total Bilirubin 0.4, AST 15, ALT 14, Alkaline Phosphatase 117 03/03/18 05:46: WBC 4.3, Hgb 8.9 L, Hct 26.8 L, Plt Count 273 D Medications List Reviewed: Yes Assessment And Plan - Current Problems (Diagnosis) (1) Acute kidney injury superimposed on CKD Onset Date: 02/15/18 Current Visit: No Status: Acute (2) Acute metabolic encephalopathy Current Visit: Yes Status: Acute (3) HTN (hypertension) Current Visit: Yes Status: Acute Qualifiers: Hypertension type: essential hypertension Qualified Code(s): I10 - Essential (primary) hypertension (4) Obesity (BMI 30.0-34.9) Current Visit: Yes Status: Acute (5) Closed minimally displaced zone I fracture of sacrum Current Visit: No Status: Acute Qualifiers: Encounter type: subsequent encounter Fracture healing: with routine healing Qualified Code(s): S32.111D - Minimally displaced Zone I fracture of sacrum, subsequent encounter for fracture with routine healing (6) Diabetes mellitus Onset Date: 02/15/18 Current Visit: No Status: Acute Qualifiers: Diabetes mellitus type: type 2 Diabetes mellitus termite treater insulin use: without senior living use Diabetes mellitus complication status: with hyperglycemia Qualified Code(s): E11.65 - Type 2 diabetes mellitus with hyperglycemia (7) Hyperkalemia Onset Date: 02/15/18 Current Visit: No Status: Acute - Plan BP better controlled. Resume home meds Monitor I/Os, fluid restriction Narayan catheter placement - pt has approx 300ml post void residual. Appreciate Dr. Tineo input Sliding scale insulin Lasix IV [facility] to [facility]
[2018-03-03] MEDS ORDERED: HYDRALAZINE HCL 25 MG TABLET PO SCH (14:00)
[2018-03-03 14:07] LABS: Urine Appearance CLEAR; Urine Bilirubin NEGATIVE (NEG); Urine Blood NEGATIVE (NEG); Urine Color YELLOW; Urine Glucose NEGATIVE (NEG); Urine Protein 2+ (NEG); Urine Specific Gravity <=1.005 (1.005-1.030); Urine Urobilinogen 0.2 mg/dL (0.2-1.0); Urine pH 7.5 (5.0-7.0)
[2018-03-03 14:41] LABS: Urine Bacteria <20 /HPF (<20); Urine RBC <5 /HPF (NONE SEEN)
[2018-03-03 14:42] LABS: Urine Culture Reflex Order NOT NEEDED
[2018-03-03 15:24] VITALS: O2SAT 93
[2018-03-03] MEDS ORDERED: INSULIN -REGULAR HUMAN 50 UNIT/0.5 ML ML SQ SCH (16:30)
[2018-03-03 16:47] VITALS: BP 143/79; TEMP 97.7
[2018-03-03] MEDS ORDERED: CARVEDILOL 12.5 MG TAB PO SCH (18:00)
[2018-03-03] MEDS ORDERED: ATORVASTATIN 20 MG TAB PO SCH (21:00)
[2018-03-03] MEDS ORDERED: MEMANTINE HCL 10 MG TABLET PO SCH (21:00)
[2018-03-03] MEDS ORDERED: DOCUSATE NA/SENNA CONC 1 TAB PO SCH (21:00)
[2018-03-04] MEDS ORDERED: glipiZIDE 5 MG TAB PO SCH (08:00)
[2018-03-04] MEDS ORDERED: CLOPIDOGREL 75 MG TABLET PO SCH (09:00)
[2018-03-04] MEDS ORDERED: PARoxetine HCl 10 MG TAB PO SCH (09:00)
[2018-03-04] MEDS ORDERED: POLYETHYL GLY 3350 17 GM/DOSE PO SCH (09:00)
--- NOTE | 2018-03-05 14:33 | P.DS ---
Admission Date: 03/02/18 Discharge Date: 03/05/18 Disposition: TRANSFER TO [facility] Discharge Condition: FAIR Reason for Admission: AMS, uncontrolled HTN Consultations: Nephrology - Dr. Darling - Problems (1) Acute kidney injury superimposed on CKD Onset Date: 02/15/18 Status: Acute (2) Acute metabolic encephalopathy Onset Date: 03/05/18 Status: Acute (3) HTN (hypertension) Onset Date: 03/05/18 Status: Acute Qualifiers: Hypertension type: essential hypertension Qualified Code(s): I10 - Essential (primary) hypertension (4) Obesity (BMI 30.0-34.9) Onset Date: 03/05/18 Status: Acute (5) Closed minimally displaced zone I fracture of sacrum Onset Date: 03/05/18 Status: Acute Qualifiers: Encounter type: subsequent encounter Fracture healing: with routine healing Qualified Code(s): S32.111D - Minimally displaced Zone I fracture of sacrum, subsequent encounter for fracture with routine healing (6) Diabetes mellitus Onset Date: 02/15/18 Status: Acute Qualifiers: Diabetes mellitus type: type 2 Diabetes mellitus terminal manager insulin use: without snf use Diabetes mellitus complication status: with hyperglycemia Qualified Code(s): E11.65 - Type 2 diabetes mellitus with hyperglycemia (7) Hyperkalemia Onset Date: 02/15/18 Status: Acute Brief History of Present Illness: Pt is a 62 yo F w PMHx of DM, HTN, CKD, CAD who was requested to be admitted from rehab by Dr. Collins. Patient was DC to rehab recently from the hospital after Acute on chronic kidney injury. Patient was found to be hypertensive, altered and therefore requested to be transferred to the floor. Pts symptoms are constant, moderate and progressively worsening. Daughter requesting transfer to [facility] - her documentation analyst is Dr. Jah Kebede. Hospital Course: Pt was admitted from rehab for uncontrolled HTN. Patient was given IV prn medications. She was recommended to be transferred by her primary documentation analyst Dr. Kebede at [facility] after daughter contacted him directly. Patient's kidney function remained stable. She was volume overloaded and was being diuresed. Remained stable throughout hospital course. Vital Signs/Physical Exam: Temp Pulse Resp BP Pulse Ox 97.7 F 60 18 143/79 H 93 03/03/18 16:00 03/03/18 18:07 03/03/18 16:00 03/03/18 18:07 03/03/18 16:00 Other Physical/Emotional Findings: FOR PHYSICAL EXAM FINDINGS PLEASE SEE PROGRESS NOTE ON DAY OF DISCHARGE Laboratory Data at Discharge: WBC 4.3 K/uL (4.3-10.9) 03/03/18 05:46 Hgb 8.9 g/dL (12.0-15.0) L 03/03/18 05:46 Hct 26.8 % (36.0-45.0) L 03/03/18 05:46 Plt Count 273 K/uL (152-406) D 03/03/18 05:46 Sodium 142 mmol/L (136-145) 03/03/18 05:46 Potassium 4.7 mmol/L (3.5-5.1) 03/03/18 05:46 BUN 49 mg/dL (7-18) H 03/03/18 05:46 Creatinine 2.48 mg/dL (0.55-1.3) H 03/03/18 05:46 Glucose 95 mg/dL (74-106) 03/03/18 05:46 Uric Acid 5.2 mg/dL (2.6-6.0) 03/03/18 05:46 Total Bilirubin 0.4 mg/dL (0.2-1.0) 03/03/18 05:46 AST 15 U/L (15-37) 03/03/18 05:46 ALT 14 U/L (12-78) 03/03/18 05:46 Alkaline Phosphatase 117 U/L (45-117) 03/03/18 05:46 Home Medications: Atorvastatin Calcium [Lipitor*] 20 mg PO BEDTIME tab 03/02/18 Bisacodyl [Dulcolax*] 10 mg ND DAILY PRN supp 03/02/18 Carvedilol [Coreg*] 12.5 mg PO BID 6AM 6PM tab 03/02/18 Cholecalciferol (Vitamin D3) [Vitamin D 5,000 IU Cap*] 5,000 unit PO DAILY cap 03/02/18 Clopidogrel Bisulfate [Plavix*] 75 mg PO DAILY tablet 03/02/18 Cyanocobalamin [Vitamin B-12*] 1,000 mcg PO DAILY tab 03/02/18 Docusate/Senna [Senokot-S*] 2 tab PO BEDTIME tab 03/02/18 Hydralazine [Apresoline*] 50 mg PO TID tab 03/02/18 Hydrocodone 5/APAP 325 [[place] 5/325*] 1 tab PO Q6HP PRN tab 03/02/18 Iron/FA/Vit B-Com W/C [Hemocyte Plus*] 1 tab PO DAILY WITH BREAKFAST tab Lactulose [Cephulac*] 30 ml PO BID PRN ucup 03/02/18 Magnesium Oxide [Mag 0X*] 400 mg PO BID tab 03/02/18 Memantine HCl [Namenda*] 10 mg PO BID tablet 03/02/18 PARoxetine HCl [Paxil*] 40 mg PO DAILY tab 03/02/18 Polyethyl Gly 3350 [Glycolax*] 17 gm PO DAILY udbot 03/02/18 cloNIDine HCl [Catapres*] 0.1 mg PO Q4H PRN tab 03/02/18 glipiZIDE [Glucotrol*] 2.5 mg PO DAILY WITH BREAKFAST tab 03/02/18 Diet: Low sodium (1500ML fluid restriction) Activity: Ad ignacia
== END 2018-03-03 18:45 | disposition short-term general hospital (02) ==
LOC: INTOOBSV 16:40 → 4TH 16:40
PROVIDERS: ADMIT Family Medicine; ATTEND Family Medicine
DX: I12.9 Hypertensive chronic kidney disease with stage 1 through stage 4 chronic kidney disease, or unspecified chronic kidney disease (principal); E11.22 Type 2 diabetes mellitus with diabetic chronic kidney disease; N18.3 Chronic kidney disease, stage 3 (moderate); N17.9 Acute kidney failure, unspecified; E87.6 Hypokalemia; E87.5 Hyperkalemia; E83.51 Hypocalcemia; I25.10 Atherosclerotic heart disease of native coronary artery without angina pectoris; Z88.0 Allergy status to penicillin; G93.41 Metabolic encephalopathy; S32.111A Minimally displaced Zone I fracture of sacrum, initial encounter for closed fracture
CPT/HCPCS: 36415; 80053; 81001 ×2; 82570; 82962 ×3; 84300; 84550; 85025; 94760 ×2; G0378 ×2

== ENCOUNTER 2018-07-17 02:44 | Inpatient (IN) | payer OTHER ==
[2018-07-17 03:10] LABS: Absolute Lymphocytes (CBC) 3.3 K/uL (0.7-4.9); Absolute Monocytes 0.4 K/uL (0.1-1.3); Absolute Neutrophil 6.9 K/uL (1.8-8.0); Basophils % 0.5 % (0-1.3); Eosinophils % 1.1 % (0-4.4); Hematocrit 39.1 % (36.0-45.0); Lymphocytes % 30.6 % (15.3-44.8); MPV 8.8 fL (7.6-11.3); Monocytes % 3.4 % (3.3-12.3); RBC Red Blood Cell Count 3.96 M/uL (3.86-4.86)
[2018-07-17 03:12] LABS: Protime INR 0.88
[2018-07-17] MEDS ORDERED: NA CHLORIDE 0.9% 500 ML ONE ×2 (03:12→06:11)
[2018-07-17 03:28] LABS: Albumin 3.6 g/dL (3.4-5.0); Bilirubin Direct 0.2 mg/dL (0-0.2); Bilirubin Total 0.4 mg/dL (0.2-1.0); Magnesium 2.3 mg/dL (1.8-2.4); Potassium 3.7 mmol/L (3.5-5.1); Protein, Total 8.2 g/dL (6.4-8.2); Troponin (Emerg Dept Use Only) 0.08 ng/mL (0.0-0.045)
--- NOTE | 2018-07-17 06:41 | ER ---
Nurse's Notes [facility] Name: Viri Jefferson Age: 62 yrs Sex: Female : 1955 Arrival Date: 07/17/2018 Time: 02:52 Bed 3 Private MD: Diagnosis: Syncope and collapse Presentation: 07/17 02:55 Presenting complaint: EMS states: patient woke up at 0200H went to restroom and rr5 suddenly she felt dizzy,abdominal pain and vomiting. Transition of care: patient was not received from another setting of care. Onset of symptoms was July 17, 2018 at 02:00. Risk Assessment: Do you want to hurt yourself or someone else? Patient reports no desire to harm self or others. Initial Sepsis Screen: Does the patient meet any 2 criteria? No. Patient's initial sepsis screen is negative. Does the patient have a suspected source of infection? No. Patient's initial sepsis screen is negative. Note stated by the patient she went to restroom feels like she wants to do bowel movement, she started to sweat, abdominal pain, vomit, felt dizzy. patient denies LOC. Care prior to arrival: Medication(s) given: Nitroglycerin, x 1, given by patients daughter. 02:55 Method Of Arrival: EMS: [facility] rr5 02:55 Acuity: RUSS 2 rr5 Historical: - Allergies: 03:13 PENICILLINS; rr5 03:13 Demerol; rr5 03:13 Morphine; rr5 - Home Meds: 03:13 furosemide Oral [Active]; Hydralazine Oral [Active]; atorvastatin 20 mg Oral tab 1 tab rr5 once daily [Active]; Vitamin D Oral [Active]; Vitamin b 12 1000 mcg daily [Active]; Sodium Bicarbonate Oral [Active]; Xeljanz 5 mg Oral tab 1 tab 2 times per day [Active]; folic acid 400 mcg Oral tab 1 tab once daily [Active]; Ferrous Sulfate Oral [Active]; glipizide 5 mg Oral tab 1 tab once daily [Active]; lisinopril 5 mg Oral tab 1 tab once daily [Active]; memantine oral oral [Active]; paroxetine oral oral [Active]; - PMHx: 03:13 Anxiety; Depression; Diabetes - NIDDM; High Cholesterol; Hypertension; Seizures; rr5 - PSHx: 03:13 T 10 vertebrae fracture; hip fracture; ankle fracture; elbow fracture; left wrist rr5 fracture; stage 4 kidney failure; - Immunization history:: Adult Immunizations up to date. - Social history:: Smoking status: Patient/guardian denies using tobacco. - Ebola Screening: : No symptoms or risks identified at this time. Screenin:04 Abuse screen: Denies threats or abuse. Nutritional screening: No deficits noted. ea Tuberculosis screening: No symptoms or risk factors identified. Fall Risk IV access (20 points). Assessment: 03:01 General: Appears uncomfortable, Behavior is appropriate for age. Pain: Complains of ea pain in right lower quadrant and left lower quadrant. Neuro: Level of Consciousness is awake, alert, obeys commands, Oriented to person, place, time, situation. Cardiovascular: Patient's skin is warm and dry. Respiratory: Airway is patent Respiratory effort is even, unlabored, Respiratory pattern is regular, symmetrical. GI: Abdomen is round Bowel sounds present X 4 quads. Parent/caregiver reports the patient having bloating, cramping, nausea, vomiting. Derm: Skin is pink, warm \T\ dry. 04:55 Reassessment: Patient and/or family updated on plan of care and expected duration. Pain ea level reassessed. Patient is alert, oriented x 3, equal unlabored respirations, skin warm/dry/pink. Pt taken to CT. 05:03 Reassessment: Family reports she will go home to rest if we need her for anything to ea call Char [phone]. 05:08 Reassessment: Patient and/or family updated on plan of care and expected duration. Pain ea level reassessed. Patient is alert, oriented x 3, equal unlabored respirations, skin warm/dry/pink. Pt returned from CT. 06:13 Reassessment: Patient and/or family updated on plan of care and expected duration. Pain ea level reassessed. Pt resting with eyes closed, respirations even and unlabored. Chest expansions even and symmetrical. 07:45 Reassessment: Patient appears in no apparent distress at this time. Patient and/or ph family updated on plan of care and expected duration. Pain level reassessed. Patient is alert, oriented x 3, equal unlabored respirations, skin warm/dry/pink. Dr Thompson at bedside to speak w/ pt. 09:22 Reassessment: Patient appears in no apparent distress at this time. Patient and/or ph family updated on plan of care and expected duration. Pain level reassessed. Pt sleeping comfortably with even and unlabored respirations, awakens easily, report called to WILLY Dwyer, pt to be taken to 4th floor. Vital Signs: 02:55 BP 131 / 70; Pulse 99; Resp 20; Temp 97; Pulse Ox 100% ; Weight 73.94 kg; Height 5 ft. rr5 5 in. (165.10 cm); Pain 10/10; 03:00 BP 111 / 70; Pulse 85; Resp 18; Pulse Ox 100% on R/A; ea 05:19 BP 151 / 64; Pulse 62; Resp 18; Pulse Ox 96% ; ea 06:14 BP 124 / 59; Pulse 84; Resp 18; Pulse Ox 95% on R/A; ea 07:14 BP 145 / 69; Pulse 91; Resp 17; Pulse Ox 98% on R/A; tw2 08:00 BP 122 / 64; Pulse 81; Resp 18; Pulse Ox 99% on R/A; ph 09:10 BP 118 / 59; Pulse 77; Resp 20; Temp 97.4; Pulse Ox 97% on R/A; ph 02:55 Body Mass Index 27.12 (73.94 kg, 165.10 cm) rr5 ED Course: 02:52 Patient arrived in ED. gs 02:53 Ric Tidwell MD is Attending Physician. gs 02:54 Ana Park RN is Primary Nurse. ea 02:55 Arm band placed on left wrist. EKG completed in triage. Results shown to MD. rr5 03:02 Triage completed. rr5 03:03 Arm band placed on left wrist. Patient placed in an exam room, on a stretcher, on pulse ea oximetry. 03:03 Patient has correct armband on for positive identification. Placed in gown. Bed in low ea position. Call light in reach. Side rails up X2. 03:07 X-ray completed. Portable x-ray completed in exam room. Patient tolerated procedure kw well. 03:09 XRAY Chest (1 view) In Process Unspecified. EDMS 03:47 Radiology exam delayed due to Patient had to use the [id number]. Not ready to go to [facility] CT. 05:25 Chest Abd Pelvis Wo Con In Process Unspecified. EDMS 06:41 Emanuel Thompson DO is Hospitalizing Provider. gs 07:05 Report given to Dee AGUILERA. ea 07:21 CT Head Brain wo Cont In Process Unspecified. EDMS 09:24 No provider procedures requiring assistance completed. Patient admitted, IV remains in ph place. Administered Medications: 03:01 Drug: NS 0.9% 500 ml Route: IV; Rate: bolus; Site: right forearm; ea 04:55 Follow up: Response: No adverse reaction; IV Status: Completed infusion; IV Intake: ea 500ml 06:19 Drug: NS 0.9% 500 ml Route: IV; Rate: bolus; Site: right antecubital; ea 06:52 Follow up: IV Status: Completed infusion; IV Intake: 500ml ea 06:51 Drug: Aspirin Chewable Tablet 324 mg Route: PO; ea 07:21 Follow up: Response: No adverse reaction ph 07:30 Drug: NS 0.9% 1000 ml Route: IV; Rate: 100 ml/hr; Site: right antecubital; ph 09:16 Follow up: Response: No adverse reaction; IV Status: Infusion continued upon admission ph Intake: 04:55 IV: 500ml; Total: 500ml. ea 06:52 IV: 500ml; Total: 1000ml. ea Outcome: 06:41 Decision to Hospitalize by Provider. gs 09:24 Admitted to Tele accompanied by tech, via stretcher, room 421, with chart, Report ph called to Yuliya AGUILERA 09:24 Condition: stable 09:24 Instructed on the need for admit. 10:15 Patient left the ED. ph Signatures: Dispatcher [employer] MAHENDRAMS Janel Perez Patricia RN Dee Darden ph RN RN 2 Delores Bragg [facility] Ana Park RN RN ea Starr, Gregory, MD MD gs Roque, Raymond RN RN rr5
--- NOTE | 2018-07-17 06:42 | EDPHYS ---
Physician Documentation [facility] Name: Viri Jefferson Age: 62 yrs Sex: Female : 1955 Arrival Date: 07/17/2018 Time: 02:52 Bed 3 Private MD: ED Physician Ric Tidwell HPI: 07/17 06:31 This 62 yrs old Female presents to ER via EMS with complaints of Syncope. gs 06:32 The patient has experienced syncope, became unresponsive. Onset: The symptoms/episode gs began/occurred acutely. Duration: This was a single episode. Context: occurred at home, occurred while the patient was defecating, sitting, Just prior to the episode the patient experienced lightheadedness, ab pain radiated to upper back. Associated injury: The patient did not suffer any apparent associated injury. Associated signs and symptoms: Pertinent negatives: chest pain. Current symptoms: Currently, the patient is not experiencing any symptoms. The patient has not experienced similar symptoms in the past. Historical: - Allergies: 03:13 PENICILLINS; rr5 03:13 Demerol; rr5 03:13 Morphine; rr5 - Home Meds: 03:13 furosemide Oral [Active]; Hydralazine Oral [Active]; atorvastatin 20 mg Oral tab 1 tab rr5 once daily [Active]; Vitamin D Oral [Active]; Vitamin b 12 1000 mcg daily [Active]; Sodium Bicarbonate Oral [Active]; Xeljanz 5 mg Oral tab 1 tab 2 times per day [Active]; folic acid 400 mcg Oral tab 1 tab once daily [Active]; Ferrous Sulfate Oral [Active]; glipizide 5 mg Oral tab 1 tab once daily [Active]; lisinopril 5 mg Oral tab 1 tab once daily [Active]; memantine oral oral [Active]; paroxetine oral oral [Active]; - PMHx: 03:13 Anxiety; Depression; Diabetes - NIDDM; High Cholesterol; Hypertension; Seizures; rr5 - PSHx: 03:13 T 10 vertebrae fracture; hip fracture; ankle fracture; elbow fracture; left wrist rr5 fracture; stage 4 kidney failure; - Immunization history:: Adult Immunizations up to date. - Social history:: Smoking status: Patient/guardian denies using tobacco. - Ebola Screening: : No symptoms or risks identified at this time. ROS: 06:32 All other systems are negative. gs Exam: 06:32 Head/Face: Normocephalic, atraumatic. Eyes: Pupils equal round and reactive to light, gs extra-ocular motions intact. Lids and lashes normal. Conjunctiva and sclera are non-icteric and not injected. Cornea within normal limits. Periorbital areas with no swelling, redness, or edema. ENT: Nares patent. No nasal discharge, no septal abnormalities noted. Tympanic membranes are normal and external auditory canals are clear. Oropharynx with no redness, swelling, or masses, exudates, or evidence of obstruction, uvula midline. Mucous membranes moist. Neck: Trachea midline, no thyromegaly or masses palpated, and no cervical lymphadenopathy. Supple, full range of motion without nuchal rigidity, or vertebral point tenderness. No Meningismus. Chest/axilla: Normal chest wall appearance and motion. Nontender with no deformity. No lesions are appreciated. Abdomen/GI: Soft, non-tender, with normal bowel sounds. No distension or tympany. No guarding or rebound. No evidence of tenderness throughout. Skin: Warm, dry with normal turgor. Normal color with no rashes, no lesions, and no evidence of cellulitis. 06:32 MS/ Extremity: Pulses equal, no cyanosis. Neurovascular intact. Full, normal range of motion. Neuro: Awake and alert, GCS 15, oriented to person, place, time, and situation. Cranial nerves II-XII grossly intact. Motor strength 5/5 in all extremities. Sensory grossly intact. Cerebellar exam normal. Normal gait. 06:32 Constitutional: The patient appears alert, awake, pale, uncomfortable. 06:32 Cardiovascular: Rate: tachycardic, Rhythm: regular, Pulses: no pulse deficits are appreciated, Edema: is not appreciated. 06:32 ECG was reviewed by the Attending Physician. 06:32 Respiratory: the patient does not display signs of respiratory distress, Respirations: normal, Breath sounds: are clear throughout. Vital Signs: 02:55 BP 131 / 70; Pulse 99; Resp 20; Temp 97; Pulse Ox 100% ; Weight 73.94 kg; Height 5 ft. rr5 5 in. (165.10 cm); Pain 10/10; 03:00 BP 111 / 70; Pulse 85; Resp 18; Pulse Ox 100% on R/A; ea 05:19 BP 151 / 64; Pulse 62; Resp 18; Pulse Ox 96% ; ea 06:14 BP 124 / 59; Pulse 84; Resp 18; Pulse Ox 95% on R/A; ea 07:14 BP 145 / 69; Pulse 91; Resp 17; Pulse Ox 98% on R/A; tw2 08:00 BP 122 / 64; Pulse 81; Resp 18; Pulse Ox 99% on R/A; ph 09:10 BP 118 / 59; Pulse 77; Resp 20; Temp 97.4; Pulse Ox 97% on R/A; ph 02:55 Body Mass Index 27.12 (73.94 kg, 165.10 cm) rr5 MDM: 02:53 Patient medically screened. 06:32 Differential Diagnosis: aortic aneurysm, cardiac arrhythmia, drug effect, vasovagal gs episode. Data reviewed: vital signs, nurses notes. Counseling: I had a detailed discussion with the patient and/or guardian regarding: the historical points, exam findings, and any diagnostic results supporting the discharge/admit diagnosis, lab results, radiology results. ED course: doesn't meet SF rule for discharge for syncope as chf and lbbb, so elevated troponin. 07/17 02:54 Order name: Basic Metabolic Panel; Complete Time: 03:37 07/17 02:54 Order name: CBC with Diff; Complete Time: 03:37 07/17 02:54 Order name: LFT's; Complete Time: 03:37 07/17 02:54 Order name: Magnesium; Complete Time: 03:37 07/17 02:54 Order name: NT PRO-BNP; Complete Time: 03:37 07/17 02:54 Order name: PT-INR; Complete Time: 03:37 07/17 02:54 Order name: Troponin (emerg Dept Use Only); Complete Time: 03:37 07/17 02:54 Order name: XRAY Chest (1 view) 07/17 03:09 Order name: Lipase; Complete Time: 03:37 EDMS 07/17 03:41 Order name: Chest Abd Pelvis Wo Con EDMS 07/17 06:54 Order name: CT Head Brain wo Cont gs 07/17 02:54 Order name: EKG; Complete Time: 02:55 07/17 02:54 Order name: Cardiac monitoring; Complete Time: 02:56 07/17 02:54 Order name: EKG - Nurse/Tech; Complete Time: 02:56 07/17 02:54 Order name: IV Saline Lock; Complete Time: 07/17 02:54 Order name: Labs collected and sent; Complete Time: 03:01 07/17 02:54 Order name: O2 Per Protocol; Complete Time: : 07/17 02:54 Order name: O2 Sat Monitoring; Complete Time: EC:32 Rate is 107 beats/min. Rhythm is regular. RI interval is normal. QRS interval is gs prolonged. QT interval is prolonged. Clinical impression: NSR w/ Non-specific ST/T Changes and Abnormal EKG without significant change. Interpreted by me. Administered Medications: 03:01 Drug: NS 0.9% 500 ml Route: IV; Rate: bolus; Site: right forearm; ea 04:55 Follow up: Response: No adverse reaction; IV Status: Completed infusion; IV Intake: ea 500ml 06:19 Drug: NS 0.9% 500 ml Route: IV; Rate: bolus; Site: right antecubital; ea 06:52 Follow up: IV Status: Completed infusion; IV Intake: 500ml ea 06:51 Drug: Aspirin Chewable Tablet 324 mg Route: PO; ea 07:21 Follow up: Response: No adverse reaction ph 07:30 Drug: NS 0.9% 1000 ml Route: IV; Rate: 100 ml/hr; Site: right antecubital; ph 09:16 Follow up: Response: No adverse reaction; IV Status: Infusion continued upon admission ph Disposition: 07/17/18 06:41 Hospitalization ordered by Emanuel Thompson for Observation. Preliminary diagnosis is Syncope and collapse. - Bed requested for Telemetry/MedSurg (observation). - Status is Observation. ph - Condition is Stable. - Problem is new. - Symptoms have improved. UTI on Admission? No Critical care time excluding procedures: 06:32 Critical care time: Bedside Care: 10 minutes, Consultation: 10 minutes, Family Intervention: 10 minutes. Total time: 30 minutes Signatures: Dispatcher [employer] EDPrachi Baltazar Patricia, RN RN ph Antunez, Elena, RN RN ea Starr, Gregory, MD MD gs Roque, Raymond, RN RN rr5 Corrections: (The following items were deleted from the chart) 03:07 02:57 LIPASE+C.LAB.BRZ ordered. [facility] EDMS 03:41 02:55 Angio Aorta For Dissection+CT.RAD.BRZ ordered. [facility] EDSC 09:02 06:41 Hospitalization Ordered by Emanuel Thompson DO for Observation. Preliminary bd diagnosis is Syncope and collapse. Bed requested for Telemetry/MedSurg (observation). Status is Observation. Condition is Stable. Problem is new. Symptoms have improved. UTI on Admission? No. gs 10:15 09:02 07/17/2018 06:41 Hospitalization Ordered by Emanuel Thompson DO for Observation. ph Preliminary diagnosis is Syncope and collapse. Bed requested for Telemetry/MedSurg (observation). Status is Observation. Condition is Stable. Problem is new. Symptoms have improved. UTI on Admission? No. bd
[2018-07-17] MEDS ORDERED: ASPIRIN 81 MG CHEWABLE TABLET ONE (07:05)
--- NOTE | 2018-07-17 07:28 | RAD REPORT ---
EXAM DESCRIPTION: CT - Head Brain Wo Cont - 07/17/2018 7:19 am CLINICAL HISTORY: Dizziness, syncope COMPARISON: February 2018 TECHNIQUE: Axial 5 mm thick images of the head were obtained without IV contrast. All CT scans are performed using dose optimization technique as appropriate and may include automated exposure control or mA/KV adjustment according to patient size. FINDINGS: No intracranial hemorrhage, mass, edema or shift of mid-line structures. No acute infarcti on changes seen. No cortical edema or sulcal effacement. Mild atrophy chronic ischemic changes are pr esent. Ventricles are in proportion. Intracranial findings are similar to comparison. Mastoid air cells and visualized portions of the paranasal sinuses are clear. No acute bony findings. IMPRESSION: Negative non-contrast CT head examination for acute finding Mild atrophy and chronic ischemic change similar to comparison.
--- NOTE | 2018-07-17 07:57 | EKG ---
Test Date: 2018-07-17 Test Time: 02:49:51 Instrument Setter: ELIEZER MEASUREMENT RESULTS: Intervals: Rate: 107 AK: 152 QRSD: 150 QT: 406 QTc: 542 [place]: P: 1 AK: 152 QRS: 15 T: 162 INTERPRETIVE STATEMENTS: Sinus tachycardia Left bundle branch block Abnormal ECG Compared to ECG 02/18/2018 22:44:45 Sinus rhythm no longer present Electronically Signed On 07-17-18 07:56:51 CDT by Scot Franco
--- NOTE | 2018-07-17 08:26 | RAD REPORT ---
EXAM DESCRIPTION: RAD - Chest Single View - 07/17/2018 3:10 am CLINICAL HISTORY: Shortness of breath, abdominal pain COMPARISON: February 2018, January 2018 TECHNIQUE: AP portable chest image was obtained 0307 hours . FINDINGS: No mass, consolidation or significant failure finding. Interstitial pattern is similar carlos k to January 2018. Heart size upper normal and stable. No vascular engorgement. Trachea is midline. No measurable pleural effusion and no pneumothorax. No acute bony abnormality seen. No acute aortic f indings suspected. IMPRESSION: No acute cardiopulmonary process. No significant change when comparing back to January 2018.
[2018-07-17] MEDS ORDERED: LISINOPRIL 5 MG TAB PO SCH (09:21)
[2018-07-17] MEDS ORDERED: NA CHLORIDE 0.9% 1,000 ML IV SCH (09:21)
[2018-07-17] MEDS: INSULIN -REGULAR HUMAN 50 UNIT/0.5 ML ML SQ SCH ×4 (09:21→21:00)
[2018-07-17] MEDS ORDERED: TRAMADOL HCL 50 MG TAB PO PRN (09:21)
[2018-07-17] MEDS ORDERED: ONDANSETRON 4 MG/2 ML VIAL IV PRN (09:21)
--- NOTE | 2018-07-17 10:02 | RAD REPORT ---
EXAM DESCRIPTION: CT - Chest Abd Pelvis Wo Con - 07/17/2018 6:19 am CLINICAL HISTORY: Chest pain and dizziness after awaking at 2:00 AM and using bathroom. COMPARISON: None. TECHNIQUE: Axial CT imaging of the chest, abdomen and pelvis performed without intravenous contrast. Reformatted coronal and sagittal images obtained. This exam was performed according to our departmental dose-optimization program which includes automa nathan exposure control, adjustment of the mA and/or kV according to patient size and/or use of iterativ e reconstruction technique FINDINGS: CHEST HEART/VESSELS: Heart is enlarged. No pericardial fluid. Normal caliber thoracic aorta and main pulmo nary artery. Coronary artery calcifications noted. MEDIASTINUM AND DAREK: No adenopathy. Normal central airways. Normal esophagus. Small hiatal hernia. LUNGS/PLEURA: Small ill-defined groundglass densities posterior right lower lobe consistent with sma ll focal areas of pneumonitis. No edema. No pneumothorax. No pleural fluid. Calcified posterior and m edial left lower lobe pleural plaque noted. Anterior left lower lobe 3 mm calcified granuloma. CHEST WALL/SOFT TISSUES: Old fractures of anterior right ribs two through seven. Old fracture anteri or lateral left ribs two through eight. Old posterior left rib 10 fracture. There is a 50% anterior w edge compression fracture of T11 without retropulsion. Vacuum disc at T9-10 and T10-11. Mild thoracic spondylosis with multilevel endplate Schmorl's nodes. ABDOMEN: LIVER/GALLBLADDER: Normal liver. Layering gallstones within the gallbladder. No cholecystitis or edi iary dilatation. SPLEEN/PANCREAS: Normal spleen. Atrophy of the pancreas. KIDNEYS/ADRENAL GLANDS: Normal adrenal glands. Bilateral renal vascular calcifications. No renal sto ne or mass. RETROPERITONEAL VESSELS/NODES: Significant aorta and mesenteric vessels atherosclerosis. No aneurysm . Inferior vena cava is flat and contour indicative of hypovolemia. No adenopathy. BOWEL: Small hiatal hernia. Normal stomach. Small bowel loops appear normal. Normal appendix in the right lower quadrant. Normal colon. MESENTERY/PERITONEUM: No adenopathy. No ascites. No free air. PELVIS: BLADDER: Unremarkable bladder. GENITAL ORGANS: Uterus is surgically absent. PERITONEUM: No pelvic free fluid or adenopathy. BONES AND SOFT TISSUES: Bilateral L5 spondylolysis. Minimal anterior subluxation of L5 on S1. Left p roximal femur transcervical fixation screws noted. Intact right hip. IMPRESSION: 1. Old pulmonary granulomatous disease. 2. Small focal areas of right lower lobe pneumonitis 3. Small hiatal hernia. 4. Gallstones without cholecystitis. 5. Atherosclerotic disease 6. Bilateral L5 spondylolysis with Grade 1 spondylolisthesis of L5 on S1. 7. Old bilateral rib and T11 fractures. 8. Hypovolemia. Electronically signed by: Giuliana Alvarado DO 07/17/2018 5:44 AM CDT Due to temporary technical issues with the PACS/Fluency reporting system, reports are being signed by the in house radiologist as a courtesy to ensure prompt reporting. The interpreting radiologist is f ully responsible for the content of the report.
--- NOTE | 2018-07-17 10:13 | P.HP ---
Certification for Inpatient Patient admitted to: Observation With expected LOS: <2 Midnights Patient will require the following post-hospital care: None Practitioner: I am a practitioner with admitting privileges, knowledge of patient current condition, hospital course, and medical plan of care. Services: Services provided to patient in accordance with Admission requirements found in Title 42 Section 412.3 of the Code of Federal Regulations Patient History Date of Service: 07/17/18 Primary Care Provider: Dr. Emerson([place]); Nephrology-Dr. Darling; [facility] Reason for admission: Dizzy, lightheadedness History of Present Illness: 62-year-old female presented to the emergency room with dizziness and lightheadedness. Patient with multiple medical problems including diabetes, chronic renal disease , depression with anxiety, hypertension and dementia. Patient had been doing well yesterday. She reports getting up around 2:00 a.m. with a stomach ache. She proceeded to go to the bathroom. At which time she noted nausea with episode of vomiting. She reported dizziness at that time with constipation. The patient further reported some back pain with neck pain. Mild chest discomfort noted. She denied any shortness of breath or palpitation. ER had reported some syncope but patient confirmed that she did not have a syncopal episode. She only reported dizziness. Since her symptoms did not improve she came to the ER for further evaluation. In the ER patient evaluated. Patient slightly tachycardic. Blood pressure stable. The hemoglobin 12.8, white count 10.8. Sodium 144, potassium 3.7, BUN of 44, creatinine 2.7 with a GFR of 18. Glucose 268. Chest x-ray unremarkable. CT head showed no acute changes. CT scan showed old pulmonary granulomatous disease, small hiatal hernia, gallstone without cholecystitis, arteriosclerotic disease, bilateral L5 spondylosis, old bilateral rib fractures and T11 fracture and hypovolemia. Patient was given IV fluids. She reports having good bowel movement in the emergency room with mild diarrhea. She denies any abdominal pain at this time. Patient appears dry. Patient was admitted for observation related to presyncope likely viral gastroenteritis, dehydration with acute on chronic renal disease, stage4. When I saw the patient ER, she appeared dry. Patient receiving IV fluids. Patient does not appear septic time. Patient appropriate. Again patient denied a syncopal episode. Patient reports no further abdominal pain. Patient denies chest pain or shortness of breath at this time. Home medications reviewed. This includes Lasix, hydralazine, Lipitor, Calcitrol, Plavix, B12, iron, folic acid, glipizide, lisinopril, Namenda, Paxil, and tramadol. Allergies Penicillins Allergy (Severe, Verified 02/19/18 16:10) Anaphylaxis Home medications list reviewed: Yes Home Medications: Atorvastatin Calcium [Lipitor*] 20 mg PO BEDTIME tab 03/02/18 Bisacodyl [Dulcolax*] 10 mg GA DAILY PRN supp 03/02/18 Carvedilol [Coreg*] 12.5 mg PO BID 6AM 6PM tab 03/02/18 Cholecalciferol (Vitamin D3) [Vitamin D 5,000 IU Cap*] 5,000 unit PO DAILY cap 03/02/18 Clopidogrel Bisulfate [Plavix*] 75 mg PO DAILY tablet 03/02/18 Cyanocobalamin [Vitamin B-12*] 1,000 mcg PO DAILY tab 03/02/18 Docusate/Senna [Senokot-S*] 2 tab PO BEDTIME tab 03/02/18 Hydralazine [Apresoline*] 50 mg PO TID tab 03/02/18 Hydrocodone 5/APAP 325 [[place] 5/325*] 1 tab PO Q6HP PRN tab 03/02/18 Iron/FA/Vit B-Com W/C [Hemocyte Plus*] 1 tab PO DAILY WITH BREAKFAST tab Lactulose [Cephulac*] 30 ml PO BID PRN ucup 03/02/18 Magnesium Oxide [Mag 0X*] 400 mg PO BID tab 03/02/18 Memantine HCl [Namenda*] 10 mg PO BID tablet 03/02/18 PARoxetine HCl [Paxil*] 40 mg PO DAILY tab 03/02/18 Polyethyl Gly 3350 [Glycolax*] 17 gm PO DAILY udbot 03/02/18 cloNIDine HCl [Catapres*] 0.1 mg PO Q4H PRN tab 03/02/18 glipiZIDE [Glucotrol*] 2.5 mg PO DAILY WITH BREAKFAST tab 03/02/18 - Past Medical/Surgical History Diabetic: Yes -: Depression with anxiety -: Hyperlipidemia -: Hypertension -: Diabetes mellitus type 2 -: CAD -: Diastolic CHF -: Dementia -: Chronic renal disease, stage IV -: Anemia of chronic disease -: Chronic back pain -: Left leg length discrepancy -: stents x2 -: kidney stones -: left leg -: left foot -: left wrist Psychosocial/ Personal History: Patient currently lives with her daughter. She has 2 children. She is single. - Family History Father -: Diabetes, Other (see notes) (Dementia) Mother -: Other (see notes) (Dementia) - Social History Smoking Status: Never smoker Alcohol use: No CD- Drugs: No Caffeine use: Yes Place of Residence: Home Review of Systems General: Weakness, As per HPI Eyes: Unremarkable ENT: Unremarkable Respiratory: Unremarkable Cardiovascular: Light Headedness, As per HPI Gastrointestinal: Nausea, Vomiting, Abdominal Pain, Diarrhea, Constipation, As per HPI Genitourinary: Unremarkable Musculoskeletal: Unremarkable Integumentary: Unremarkable Neurological: As per HPI Lymphatics: Unremarkable Physical Examination - Physical Exam General: Alert, In no apparent distress, Oriented x3, Cooperative HEENT: Atraumatic, Normocephalic, PERRLA, Other (Dry mucous membranes), EOMI Neck: Supple, No Thyromegaly Respiratory: Clear to auscultation bilaterally, Normal air movement Cardiovascular: Normal pulses, Regular rate/rhythm Gastrointestinal: Normal bowel sounds, Soft and benign, Non-distended, No ascites, No tenderness, No masses, No rebound, No guarding Musculoskeletal: No erythema, No tenderness, No warmth Integumentary: No tenderness/swelling, No erythema, No warmth, No cyanosis, Other (Patient with left leg length discrepancy) Neurological: Normal speech, Normal strength at 5/5 x4 extr, Normal tone, Normal affect - Studies Laboratory Data (last 24 hrs) 07/17/18 03:00: PT 10.4, INR 0.88 07/17/18 03:00: WBC 10.8, Hgb 12.8, Hct 39.1, Plt Count 257 07/17/18 03:00: Sodium 144, Potassium 3.7, BUN 44 H, Creatinine 2.70 H, Glucose 268 H, Magnesium 2.3, Total Bilirubin 0.4, AST 20, ALT 19, Alkaline Phosphatase 63, Lipase 239 07/17/18 02:56: Lipase Cancelled Assessment and Plan - Plan Impression: Presyncope, abdominal pain, diarrhea likely related to viral gastroenteritis with dehydration Acute on chronic renal disease, stage IV Diabetes mellitus type 2 Hypertension Hyperlipidemia CAD Depression with anxiety Dementia GERD with hiatal hernia Plan: Presyncope, abdominal pain, diarrhea likely related to viral gastroenteritis with dehydration: Patient admitted for observation. Lab and CT scans reviewed. Will obtain echocardiogram and carotid Doppler. Will monitor lab closely. Suspect viral gastroenteritis. Patient appears dry. Will hold Lasix at this time. Will provide IV fluids. Will have physical therapy assess ambulation. Nephrology consulted to further evaluate. Restart home medications. Will monitor for further abdominal pain. Abdominal pain appears resolved after she had bowel movement in the ER. Anticipate improvement over the next 24 hr. Likely discharge tomorrow if significantly improved clinically. Will discuss further with nephrology. Patient may require adjustment in medication. Acute on chronic renal disease, stage IV: Nephrology consulted. Will provide IV fluids. Will recheck lab in the morning. Recommend no use of nonsteroidal anti-inflammatories in the future. Future medications will need to be renally dosed. Diabetes mellitus type 2: Will provide insulin sliding scale. Will monitor Accu-Cheks. Hypertension: Will review and restart home medication. Hyperlipidemia: Restart home medication. CAD: Restart home medication and provide DVT prophylaxis. Depression with anxiety: Restart home medication. Dementia: Restart home medication. GERD with hiatal hernia: Will start medication for GERD. Will address lifestyle modification education. Discharge Plan: Home Plan to discharge in: 24 Hours - Advance Directives Does patient have a Living Will: No Does patient have a Durable POA for Healthcare: No - Code Status/Comfort Care Code Status Assessed: Yes (Patient is full code.) Time Spent Managing Pts Care (In Minutes): 55
--- NOTE | 2018-07-17 10:34 | RAD REPORT ---
EXAM DESCRIPTION: US - CP - 07/17/2018 10:02 am CLINICAL HISTORY: presyncope, Hx of CAD/HTN/DM/CRD Headache COMPARISON: No comparisons TECHNIQUE: Real-time sonographic evaluation of both carotid systems was performed. Doppler interroga tion was performed with waveform tracing bilaterally. FINDINGS: Areas of hard plaquing are seen in both distal common carotid arteries, greater on the lef t. Stenosis of 50-70% based on NASCET criteria noted involving both distal common carotid arteries, s lightly greater on the left. Moderate hard plaquing is seen in both proximal internal carotid arteries, slightly greater on the ri ght. Stenosis estimated less than 50% based on NASCET criteria noted involving both carotid bulbs. Pe ak systolic and end diastolic velocity values and the ICA/CCA ratios are in the non-hemodynamically s ignificant range. Antegrade flow seen in both vertebral arteries. IMPRESSION: Multifocal atheromatous plaquing is present involving both distal common carotid artery seen in both proximal internal carotid arteries. Visually, stenosis based on NASCET criteria between 50-70% is seen in both distal common carotid siomara kell, slightly worse on the left. Less than 50% stenosis based on NASCET criteria is seen in both car otid bulbs. No hemodynamically significant stenosis is identified, however, on either side.
[2018-07-17] MEDS: PARoxetine HCl 10 MG TAB PO SCH (11:48)
[2018-07-17] MEDS: FERROUS SULFATE 325 MG TAB PO SCH (11:48)
[2018-07-17] MEDS: CALCITROL 0.25 MCG CAP PO SCH (11:48)
[2018-07-17] MEDS: FAMOTIDINE 20 MG TAB PO SCH (11:49)
[2018-07-17] MEDS: ENOXAPARIN 40 MG/0.4 ML SQ SCH (11:49)
[2018-07-17] MEDS: CLOPIDOGREL 75 MG TABLET PO SCH (11:49)
[2018-07-17] MEDS: FOLIC ACID 1 MG TABLET PO SCH (11:49)
[2018-07-17] MEDS: ACETAMINOPHEN 500 MG TAB PO PRN (11:50)
[2018-07-17] MEDS: MEMANTINE HCL 10 MG TABLET PO SCH ×2 (11:50→20:22)
[2018-07-17] MEDS: VITAMIN D 1000 UNIT TAB PO SCH (12:03)
[2018-07-17] MEDS: HYDRALAZINE HCL 25 MG TABLET PO SCH ×2 (12:03→20:22)
[2018-07-17 12:37] LABS: CKMB Creatine Kinase MB 6.5 ng/mL (0.3-3.6)
[2018-07-17 12:39] LABS: Thyroid Stimulating Hormone 1.69 uIU/mL (0.360-3.740); Troponin I 2.39 ng/mL (0.0-0.045)
--- NOTE | 2018-07-17 13:07 | ECHO ---
HEIGHT: 5 ft 5 in WEIGHT: 163 lb 0 oz DATE OF STUDY: 07/17/[address]: Emanuel Thompson DO 2-DIMENSIONAL: YES M.MODE: YES DOPPLER: YES COLOR FLOW: YES TDS: NO PORTABLE: NO DEFINITY: NO BUBBLE STUDY: NO DIAGNOSIS: PRE SYNCOPE CARDIAC HISTORY: CATHERIZATION: YES SURGERY: NO PROSTHETIC VALVE: NO PACEMAKER: NO MEASUREMENTS (cm) DIASTOLIC (NORMALS) SYSTOLIC (NORMALS) IVSd 1.5 (0.6-1.2) LA Diam (1.9-4.0) LVEF 51% LVIDd 3.7 (3.5-5.7) LVIDs 3.1 (2.0-3.5) %FS % LVPWd 1.4 (0.6-1.2) Ao Diam (2.0-3.7) 2 DIMENSIONAL ASSESSMENT: RIGHT ATRIUM: NORMAL LEFT ATRIUM: NORMAL RIGHT VENTRICLE: NORMAL LEFT VENTRICLE: LEFT VENTRICULAR HYPERTROPHY TRICUSPID VALVE: NORMAL MITRAL VALVE: NORMAL PULMONIC VALVE: NORMAL AORTIC VALVE: SCLEROSIS PERICARDIAL EFFUSION: NONE AORTIC ROOT: NORMAL LEFT VENTRICULAR WALL MOTION: PARADOXICAL SEPTAL MOTION. DOPPLER/COLOR FLOW: NORMAL COMMENTS: LEFT VENTRICULAR HYPERTROPHY. NORMAL LEFT VENTRICULAR EJECTION FRACTION. NO WALL MOTION ABNORMALITY. PARADOXICAL SEPTAL MOTION.. AORTIC SCLEROSIS WITH NO AORTIC STENOSIS. TECHNOLOGIST: Noemi RAMOS
[2018-07-17 14:45] VITALS: BMI 27.1
[2018-07-17] MEDS ORDERED: GLUCAGON 1 MG/VIAL IM PRN (16:19)
[2018-07-17] MEDS ORDERED: D50W 25 GM/50 ML SYRINGE IV PRN (16:19)
[2018-07-17] MEDS ORDERED: LACTULOSE 20 GM/30 ML UCUP PO PRN (16:45)
[2018-07-17] MEDS ORDERED: POTASSIUM CL SA 10 MEQ TAB PO ONE (17:00)
[2018-07-17] MEDS: CODEINE 30MG/APAP 300MG TAB PO PRN (18:18)
[2018-07-17] MEDS: ATORVASTATIN 20 MG TAB PO SCH (20:22)
[2018-07-17] MEDS: DOCUSATE NA/SENNA CONC 1 TAB PO SCH (20:23)
--- NOTE | 2018-07-17 20:48 | CON ---
Date of Consultation: 07/17/[address] Thompson service on 07/17/2018. The patient was seen on 07/17/2018. Reason For Consultation: Elevated troponin. History Of Present Illness: Ms. Jefferson is a 62-year-old white woman, has multiple past medical probl ems. She does have a history of coronary artery disease. She has had an LAD stent before and accord ing to her, last November, 7 months ago, they had to go in and put 4 other stents. This was done at [facility]. She cannot remember the name of the physician. She came in this time when she alejandra d an episode of nausea, vomiting, and some shortness of breath. No chest pain reported. She was try ing to use a restroom when she had those episodes, after straining. Had episodes of dizziness, light headedness and presyncope, but not quite syncopal. She came to the emergency room and was found to h ave EKG with a left bundle-branch block, which was chronic. She had a negative chest x-ray and negat ibis CT of her head. She had elevated creatinine of 2.7, glucose of 270. Her troponin was 2.39. Car otid Doppler showed 50-70% bilateral stenosis, both the carotid stenoses were more than the common ca rotid. There was 50% stenosis in the bulb of the carotid. She is now asymptomatic. Nephrology has been consulted. Past Medical History: Include anxiety, depression, diabetes, dementia, hypertension, dyslipidemia, s eizure disorder, and coronary artery disease status post multiple stents. Allergies: SHE IS ALLERGIC TO PENICILLIN. Review of Systems: Negative. Social History: Negative. Family History: Positive for diabetes and heart disease. Medications: At home include Lipitor, Namenda, hydralazine, Plavix, lisinopril, and glucotrol. Physical Examination: General: She was in no acute distress. Vital Signs: Stable. She was in sinus rhythm. Blood pressure was 120/74. HEENT: Negative. Neck: Supple without any bruit, lymphadenopathy, JVD, or thyromegaly. Chest: Clear to auscultation and percussion. Cardiac: Revealed a regular rhythm and rate with S4 gallops. No murmurs or rubs. Abdomen: Benign. Extremities: Revealed no clubbing, cyanosis. She had trace edema. Skin: Dry and intact. Neurologic: She was nonfocal. Pulses were present distally bilaterally. Diagnostic Data: As stated earlier. Impression And Plan: Acute renal injury with a creatinine of 2.7. Nephrology has been consulted. M ay be reasonable to take her off her lisinopril for now. This may have caused her troponin to be salo vated. She never really had chest pain, but she is a diabetic and her symptoms could be atypical, ho wever, with a creatinine of 2.7, we certainly would not be performing a heart catheterization any ho e soon. If her creatinine improves, we will we consider coronary arteriography. We will watch her c reatinine for now. An echocardiogram, which was done showed aortic sclerosis, normal ejection fracti on, and no wall motion abnormalities. She is now asymptomatic. It would be fair to treat her medica lly. She is already on aspirin and Plavix and Lipitor and certainly adding a low dose beta-slick m ay be reasonable. Her other problems include: 1.Anxiety. 2.Depression. 3.Dementia, on Namenda. 4.Diabetes, poorly controlled. 5.Hypertension, well controlled. 6.Dyslipidemia, well controlled. 7.History of seizure disorder. 8.Bilateral carotid stenosis, moderate. She is to be followed up on a yearly basis. Case was discussed with Dr. Thmopson. We will continue to follow Ms. Jefferson. JACE/SARA Voice ID: [id number] Report ID: [id number]
[2018-07-17 20:58] LABS: CKMB Creatine Kinase MB 4.9 ng/mL (0.3-3.6); Troponin I 1.89 ng/mL (0.0-0.045)
[2018-07-17] MEDS ORDERED: MAGNESIUM OXIDE 400 MG TAB PO SCH (21:00)
--- NOTE | 2018-07-17 23:10 | P.CNS ---
Date of Consult: 07/17/18 Reason for Consult: ZOILA Primary Care Provider: Dr. Emerson([place]); Nephrology-Dr. Darling; [facility]- [place] Chief Complaint: Dizzy, lightheadedness History of Present Illness: 62-year-old female presented to the emergency room with dizziness and lightheadedness. Patient with multiple medical problems including diabetes, chronic renal disease , depression with anxiety, hypertension and dementia. Patient had been doing well yesterday. She reports getting up around 2:00 a.m. with a stomach ache. She proceeded to go to the bathroom. At which time she noted nausea with episode of vomiting. She reported dizziness at that time with constipation. The patient further reported some back pain with neck pain. Mild chest discomfort noted. She denied any shortness of breath or palpitation. ER had reported some syncope but patient confirmed that she did not have a syncopal episode. She only reported dizziness. Since her symptoms did not improve she came to the ER for further evaluation. In the ER patient evaluated. Patient slightly tachycardic. Blood pressure stable. The hemoglobin 12.8, white count 10.8. Sodium 144, potassium 3.7, BUN of 44, creatinine 2.7 with a GFR of 18. Glucose 268. Chest x-ray unremarkable. CT head showed no acute changes. CT scan showed old pulmonary granulomatous disease, small hiatal hernia, gallstone without cholecystitis, arteriosclerotic disease, bilateral L5 spondylosis, old bilateral rib fractures and T11 fracture and hypovolemia. Patient was given IV fluids. She reports having good bowel movement in the emergency room with mild diarrhea. She denies any abdominal pain at this time. Patient appears dry. Patient was admitted for observation related to presyncope likely viral gastroenteritis, dehydration with acute on chronic renal disease, stage4. 06:31 This 62 yrs old Female presents to ER via EMS with complaints of Syncope. gs 06:32 The patient has experienced syncope, became unresponsive. Onset: The symptoms/episode gs began/occurred acutely. Duration: This was a single episode. Context: occurred at home, occurred while the patient was defecating, sitting, Just prior to the episode the patient experienced lightheadedness, ab pain radiated to upper back. Associated injury: The patient did not suffer any apparent associated injury. Associated signs and symptoms: Pertinent negatives: chest pain. Current symptoms: Currently, the patient is not experiencing any symptoms. The patient has not experienced similar symptoms in the past. Allergies Penicillins Allergy (Severe, Verified 07/17/18 14:45) Anaphylaxis meperidine [From Demerol] Adverse Reaction (Verified 07/18/18 12:03) Anaphylaxis morphine Adverse Reaction (Verified 07/18/18 12:03) Anaphylaxis Home medications list reviewed: Yes Home Medications: Atorvastatin Calcium [Lipitor*] 20 mg PO BEDTIME tab 03/02/18 Bisacodyl [Dulcolax*] 10 mg DC DAILY PRN supp 03/02/18 Cholecalciferol (Vitamin D3) [Vitamin D 5,000 IU Cap*] 5,000 unit PO DAILY cap 03/02/18 Clopidogrel Bisulfate [Plavix*] 75 mg PO DAILY tablet 03/02/18 Cyanocobalamin [Vitamin B-12*] 1,000 mcg PO DAILY tab 03/02/18 Docusate/Senna [Senokot-S*] 2 tab PO BEDTIME tab 03/02/18 Iron/FA/Vit B-Com W/C [Hemocyte Plus*] 1 tab PO DAILY WITH BREAKFAST tab Lactulose [Cephulac*] 30 ml PO BID PRN ucup 03/02/18 Memantine HCl [Namenda*] 10 mg PO BID tablet 03/02/18 PARoxetine HCl [Paxil*] 40 mg PO DAILY tab 03/02/18 Polyethyl Gly 3350 [Glycolax*] 17 gm PO DAILY udbot 03/02/18 glipiZIDE [Glucotrol*] 2.5 mg PO DAILY WITH BREAKFAST tab 03/02/18 Sodium Bicarbonate 325 mg PO BID 07/17/18 Tofacitinib Citrate [Xeljanz] 5 mg PO DAILY 07/17/18 Famotidine [Pepcid*] 20 mg PO DAILY #30 tab 07/19/18 Hydralazine [Apresoline*] 25 mg PO BID #60 tab 07/19/18 - Past Medical/Surgical History Diabetic: Yes -: Depression with anxiety -: Hyperlipidemia -: Hypertension -: Diabetes mellitus type 2 -: CAD -: Diastolic CHF -: Dementia -: Chronic renal disease, stage IV -: Anemia of chronic disease -: Chronic back pain -: Left leg length discrepancy -: stents x2 -: kidney stones -: left leg -: left foot -: left wrist Psychosocial/ Personal History: Patient currently lives with her daughter. She has 2 children. She is single. - Family History Father Medical History: Diabetes, Other (see notes) (Dementia) Mother Medical History: Other (see notes) (Dementia) - Social History Smoking Status: Unknown if ever smoked Alcohol use: No CD- Drugs: No Caffeine use: Yes Place of Residence: Home Review of Systems 10-point ROS is otherwise unremarkable General: Weakness, Malaise Gastrointestinal: Nausea, Abdominal Pain Neurological: Weakness Physical Examination Temp Pulse Resp BP Pulse Ox 97.9 F 70 18 118/58 L 96 07/17/18 20:00 07/17/18 20:00 07/17/18 20:00 07/17/18 20:00 07/17/18 20:00 General: In no apparent distress, Oriented x3, Cooperative HEENT: Atraumatic Neck: Supple Respiratory: Clear to auscultation bilaterally, Normal air movement Cardiovascular: No edema, Regular rate/rhythm Gastrointestinal: Non-distended, No guarding, Tenderness Musculoskeletal: No clubbing, No contractures Integumentary: No rashes, No cyanosis Neurological: Normal speech Laboratory Data (last 24 hrs) 07/17/18 12:00: Troponin I 2.39 H* 07/17/18 03:00: PT 10.4, INR 0.88 07/17/18 03:00: WBC 10.8, Hgb 12.8, Hct 39.1, Plt Count 257 07/17/18 03:00: Sodium 144, Potassium 3.7, BUN 44 H, Creatinine 2.70 H, Glucose 268 H, Magnesium 2.3, Total Bilirubin 0.4, AST 20, ALT 19, Alkaline Phosphatase 63, Lipase 239 07/17/18 02:56: Lipase Cancelled Imagings Data: Reason for Exam: CHEST PAIN Report Status: Signed EXAM DESCRIPTION: CT - Chest Abd Pelvis Wo Con - 07/17/2018 6:19 am CLINICAL HISTORY: Chest pain and dizziness after awaking at 2:00 AM and using bathroom. COMPARISON: None. TECHNIQUE: Axial CT imaging of the chest, abdomen and pelvis performed without intravenous contrast. Reformatted coronal and sagittal images obtained. This exam was performed according to our departmental dose-optimization program which includes automated exposure control, adjustment of the mA and/or kV according to patient size and/or use of iterative reconstruction technique FINDINGS: CHEST HEART/VESSELS: Heart is enlarged. No pericardial fluid. Normal caliber thoracic aorta and main pulmonary artery. Coronary artery calcifications noted. MEDIASTINUM AND DAREK: No adenopathy. Normal central airways. Normal esophagus. Small hiatal hernia. LUNGS/PLEURA: Small ill-defined groundglass densities posterior right lower lobe consistent with small focal areas of pneumonitis. No edema. No pneumothorax. No pleural fluid. Calcified posterior and medial left lower lobe pleural plaque noted. Anterior left lower lobe 3 mm calcified granuloma. CHEST WALL/SOFT TISSUES: Old fractures of anterior right ribs two through seven. Old fracture anterior lateral left ribs two through eight. Old posterior left rib 10 fracture. There is a 50% anterior wedge compression fracture of T11 without retropulsion. Vacuum disc at T9-10 and T10-11. Mild thoracic spondylosis with multilevel endplate Schmorl's nodes. ABDOMEN: LIVER/GALLBLADDER: Normal liver. Layering gallstones within the gallbladder. No cholecystitis or biliary dilatation. SPLEEN/PANCREAS: Normal spleen. Atrophy of the pancreas. KIDNEYS/ADRENAL GLANDS: Normal adrenal glands. Bilateral renal vascular calcifications. No renal stone or mass. RETROPERITONEAL VESSELS/NODES: Significant aorta and mesenteric vessels atherosclerosis. No aneurysm. Inferior vena cava is flat and contour indicative of hypovolemia. No adenopathy. BOWEL: Small hiatal hernia. Normal stomach. Small bowel loops appear normal. Normal appendix in the right lower quadrant. Normal colon. MESENTERY/PERITONEUM: No adenopathy. No ascites. No free air. PELVIS: BLADDER: Unremarkable bladder. GENITAL ORGANS: Uterus is surgically absent. PERITONEUM: No pelvic free fluid or adenopathy. BONES AND SOFT TISSUES: Bilateral L5 spondylolysis. Minimal anterior subluxation of L5 on S1. Left proximal femur transcervical fixation screws noted. Intact right hip. IMPRESSION: 1. Old pulmonary granulomatous disease. 2. Small focal areas of right lower lobe pneumonitis 3. Small hiatal hernia. 4. Gallstones without cholecystitis. 5. Atherosclerotic disease 6. Bilateral L5 spondylolysis with Grade 1 spondylolisthesis of L5 on S1. 7. Old bilateral rib and T11 fractures. 8. Hypovolemia. Conclusions/Impression: A/ ZOILA likely hypovolemia. Acidosis. CKD IV with proteinuria. HTN with CKD/ CHF. AUGUSTIN. DM II with CKD. Diastolic CHF, chronic. Gastroenteritis concerning for viral syndrome vs food poisoning. P/ Continue current POC and Medications. Agree with IVF and holding diuretics. Change IVF 1/2NS. Will add bicarb therapy as needed. Stop oral magnesium at this time due to diarrhea. Titrate insulin as needed to improved BG. Low sodium diet. No NSAIDs. AM labs. Daily weight. Thank you kindly for the consultation. Case discussed with Dr. Thompson.
[2018-07-18] MEDS: NACHLORIDE 0.45% 1,000 ML IV SCH ×2 (00:22→09:48)
[2018-07-18] MEDS: CODEINE 30MG/APAP 300MG TAB PO PRN ×3 (02:42→22:29)
[2018-07-18 04:10] LABS: Urine Appearance CLOUDY; Urine Bilirubin NEGATIVE (NEG); Urine Blood NEGATIVE (NEG); Urine Color YELLOW; Urine Glucose 1+ (NEG); Urine Protein 2+ (NEG); Urine Urobilinogen 0.2 mg/dL (0.2-1.0)
[2018-07-18 04:24] LABS: Absolute Lymphocytes (CBC) 0.7 K/uL (0.7-4.9); Absolute Monocytes 0.8 K/uL (0.1-1.3); Absolute Neutrophil 4.9 K/uL (1.8-8.0); Basophils % 0.3 % (0-1.3); Eosinophils % 0.5 % (0-4.4); Hematocrit 28.2 % (36.0-45.0); Lymphocytes % 11.3 % (15.3-44.8); MPV 9.3 fL (7.6-11.3); Monocytes % 11.9 % (3.3-12.3); RBC Red Blood Cell Count 2.91 M/uL (3.86-4.86)
[2018-07-18 04:33] LABS: Phosphorus 3.4 mg/dL (2.5-4.9); Potassium 4.3 mmol/L (3.5-5.1); Uric Acid 6.2 mg/dL (2.6-6.0)
[2018-07-18 05:02] LABS: Urine Bacteria <20 /HPF (<20); Urine Culture Reflex Order NOT NEEDED; Urine RBC <5 /HPF (NONE SEEN)
[2018-07-18] MEDS: INSULIN -REGULAR HUMAN 50 UNIT/0.5 ML ML SQ SCH ×4 (07:30→22:27)
[2018-07-18 08:12] LABS: Hematocrit 27.8 % (36.0-45.0)
[2018-07-18] MEDS: ENOXAPARIN 40 MG/0.4 ML SQ SCH ×2 (09:00→09:45)
[2018-07-18] MEDS: CYANOCOBALAMIN 1,000 MCG TAB PO SCH (09:44)
[2018-07-18] MEDS: FAMOTIDINE 20 MG TAB PO SCH (09:44)
[2018-07-18] MEDS: FOLIC ACID 1 MG TABLET PO SCH (09:44)
[2018-07-18] MEDS: MEMANTINE HCL 10 MG TABLET PO SCH ×2 (09:44→22:27)
[2018-07-18] MEDS: CLOPIDOGREL 75 MG TABLET PO SCH (09:44)
[2018-07-18] MEDS: FERROUS SULFATE 325 MG TAB PO SCH (09:44)
[2018-07-18] MEDS: CALCITROL 0.25 MCG CAP PO SCH (09:44)
[2018-07-18] MEDS: HYDRALAZINE HCL 25 MG TABLET PO SCH ×2 (09:44→22:27)
[2018-07-18] MEDS: PARoxetine HCl 10 MG TAB PO SCH (09:44)
[2018-07-18] MEDS: VITAMIN D 1000 UNIT TAB PO SCH (09:48)
--- NOTE | 2018-07-18 09:51 | P.PN ---
Subjective Date of Service: 07/18/18 Primary Care Provider: Dr. Emerson([place]); Nephrology-Dr. Darling; [facility]- [place] Chief Complaint: Dizzy, lightheadedness Subjective: Improving (Patient appears improved. Still mild abdominal discomfort to the lower quadrant. Poor oral intake noted today. No chest pain noted. No shortness of breath noted) Physical Examination - Vital Signs Temperature: 97.7 F Blood Pressure: 130/50 Pulse: 85 Respirations: 19 Pulse Ox (%): 97 - Physical Exam General: Alert, In no apparent distress, Oriented x3, Cooperative HEENT: Atraumatic Neck: Supple Respiratory: Clear to auscultation bilaterally, Normal air movement Cardiovascular: Normal pulses, Regular rate/rhythm Gastrointestinal: Normal bowel sounds, Soft and benign, Non-distended, No masses , No rebound, No guarding, Tenderness (Minimal pain to the left lower quadrant) Musculoskeletal: No erythema, No tenderness, No warmth Integumentary: No tenderness/swelling, No erythema, No warmth, No cyanosis Neurological: Normal speech, Normal strength at 5/5 x4 extr, Normal tone, Normal affect - Studies Laboratory Data (last 24 hrs) 07/17/18 12:00: Troponin I 2.39 H* Medications List Reviewed: Yes Assessment & Plan Discharge Plan: Home Plan to discharge in: 24 Hours Physician Review Additional Text: Impression: Presyncope, abdominal pain, diarrhea likely related to viral gastroenteritis with dehydration Acute on chronic renal disease, stage IV Elevated troponin likely related to non ST wave MD with underlying history of CAD and chronic left bundle branch block Diabetes mellitus type 2 Hypertension Hyperlipidemia Depression with anxiety Dementia GERD with hiatal hernia Carotid arterial disease Cholelithiasis without cholecystitis Anemia likely dilutional Dementia Plan: Presyncope, abdominal pain, diarrhea likely related to viral gastroenteritis with dehydration: Patient appears improved. Still suspect dehydration related to gastroenteritis. Continue with IV fluids. Encourage oral intake. Medications have been adjusted by Nephrology. Encourage ambulation. Patient had elevated troponin likely non ST wave MD. Cardiology recommends no intervention at this time due to her chronic renal disease. Will continue to monitor. Likely discharge tomorrow but will further discuss with nephrology Elevated troponin likely related to non ST wave MD with underlying history of CAD and chronic left bundle branch block: Echocardiogram unremarkable. Normal ejection fraction. No wall motion abnormality noted. Spoke with Cardiology yesterday. Likely no need for intervention at this time especially with her history of chronic renal disease. If her renal disease improve so for time this can be further evaluated. Continue with aspirin and Plavix. Acute on chronic renal disease, stage IV: Case discussed with nephrology yesterday. IV fluids adjusted. Other medication adjusted as well. Lisinopril currently on hold. Slight improvement noted. Will continue to monitor closely. Recommend no use of nonsteroidal anti-inflammatories in the future. Future medications will need to be renally dosed. Diabetes mellitus type 2: Continue with insulin sliding scale. Will monitor Accu-Cheks. Hypertension: Medications have been adjusted. Hydralazine decreased. Lisinopril currently on hold due to acute on chronic renal disease. Continue to monitor and adjust home medication. Hyperlipidemia: Continue with home medication. Depression with anxiety: Continue with home medication. Dementia: Patient stable at this time and appropriate. Continue with home medication. GERD with hiatal hernia: Continue medication for GERD with hiatal hernia. Education addressed in detail with patient patient may require GI evaluation as an outpatient. Carotid arterial disease: This can be further monitored as an outpatient. Cholelithiasis without cholecystitis: This can be further managed as an outpatient. Patient may require surgical evaluation as an outpatient. Addressed dietary changes. Anemia likely dilutional: Repeat Lab stable. Will continue with her iron supplementation Time Spent Managing Pts Care (In Minutes): 55
[2018-07-18] MEDS ORDERED: ENOXAPARIN 30 MG/0.3 ML SQ SCH (10:00)
[2018-07-18] MEDS: ACETAMINOPHEN 500 MG TAB PO PRN (10:27)
[2018-07-18] MEDS: DOCUSATE NA/SENNA CONC 1 TAB PO SCH (22:27)
[2018-07-18] MEDS: ATORVASTATIN 20 MG TAB PO SCH (22:27)
[2018-07-19] MEDS: NACHLORIDE 0.45% 1,000 ML IV SCH (04:24)
[2018-07-19] MEDS: CODEINE 30MG/APAP 300MG TAB PO PRN (04:24)
[2018-07-19] MEDS: INSULIN -REGULAR HUMAN 50 UNIT/0.5 ML ML SQ SCH ×2 (07:30→11:30)
[2018-07-19] MEDS: PARoxetine HCl 10 MG TAB PO SCH (09:04)
[2018-07-19] MEDS: FERROUS SULFATE 325 MG TAB PO SCH (09:05)
[2018-07-19] MEDS: CALCITROL 0.25 MCG CAP PO SCH (09:05)
[2018-07-19] MEDS: VITAMIN D 1000 UNIT TAB PO SCH (09:06)
[2018-07-19] MEDS: HYDRALAZINE HCL 25 MG TABLET PO SCH (09:06)
[2018-07-19] MEDS: FOLIC ACID 1 MG TABLET PO SCH (09:06)
[2018-07-19] MEDS: CLOPIDOGREL 75 MG TABLET PO SCH (09:06)
[2018-07-19] MEDS: CYANOCOBALAMIN 1,000 MCG TAB PO SCH (09:06)
[2018-07-19] MEDS: MEMANTINE HCL 10 MG TABLET PO SCH (09:06)
[2018-07-19] MEDS: FAMOTIDINE 20 MG TAB PO SCH (09:12)
--- NOTE | 2018-07-19 10:06 | P.DS ---
Admission Date: 07/17/18 Discharge Date: 07/19/18 Primary Care Provider: Dr. Emerson([place]); Nephrology-Dr. Darling; [facility] Disposition: ROUTINE DISCHARGE Discharge Condition: GOOD Reason for Admission: Dizzy, lightheadedness Consultations: Cardiology-Dr. Franco Nephrology-Dr. Mendes Procedures: CT Scan: FINDINGS: CHEST HEART/VESSELS: Heart is enlarged. No pericardial fluid. Normal caliber thoracic aorta and main pulmonary artery. Coronary artery calcifications noted. MEDIASTINUM AND DAREK: No adenopathy. Normal central airways. Normal esophagus. Small hiatal hernia. LUNGS/PLEURA: Small ill-defined groundglass densities posterior right lower lobe consistent with small focal areas of pneumonitis. No edema. No pneumothorax. No pleural fluid. Calcified posterior and medial left lower lobe pleural plaque noted. Anterior left lower lobe 3 mm calcified granuloma. CHEST WALL/SOFT TISSUES: Old fractures of anterior right ribs two through seven. Old fracture anterior lateral left ribs two through eight. Old posterior left rib 10 fracture. There is a 50% anterior wedge compression fracture of T11 without retropulsion. Vacuum disc at T9-10 and T10-11. Mild thoracic spondylosis with multilevel endplate Schmorl's nodes. ABDOMEN: LIVER/GALLBLADDER: Normal liver. Layering gallstones within the gallbladder. No cholecystitis or biliary dilatation. SPLEEN/PANCREAS: Normal spleen. Atrophy of the pancreas. KIDNEYS/ADRENAL GLANDS: Normal adrenal glands. Bilateral renal vascular calcifications. No renal stone or mass. RETROPERITONEAL VESSELS/NODES: Significant aorta and mesenteric vessels atherosclerosis. No aneurysm. Inferior vena cava is flat and contour indicative of hypovolemia. No adenopathy. BOWEL: Small hiatal hernia. Normal stomach. Small bowel loops appear normal. Normal appendix in the right lower quadrant. Normal colon. MESENTERY/PERITONEUM: No adenopathy. No ascites. No free air. PELVIS: BLADDER: Unremarkable bladder. GENITAL ORGANS: Uterus is surgically absent. PERITONEUM: No pelvic free fluid or adenopathy. BONES AND SOFT TISSUES: Bilateral L5 spondylolysis. Minimal anterior subluxation of L5 on S1. Left proximal femur transcervical fixation screws noted. Intact right hip. IMPRESSION: 1. Old pulmonary granulomatous disease. 2. Small focal areas of right lower lobe pneumonitis 3. Small hiatal hernia. 4. Gallstones without cholecystitis. 5. Atherosclerotic disease 6. Bilateral L5 spondylolysis with Grade 1 spondylolisthesis of L5 on S1. 7. Old bilateral rib and T11 fractures. 8. Hypovolemia. CT Head: COMPARISON: February 2018 TECHNIQUE: Axial 5 mm thick images of the head were obtained without IV contrast. All CT scans are performed using dose optimization technique as appropriate and may include automated exposure control or mA/KV adjustment according to patient size. FINDINGS: No intracranial hemorrhage, mass, edema or shift of mid-line structures. No acute infarction changes seen. No cortical edema or sulcal effacement. Mild atrophy chronic ischemic changes are present. Ventricles are in proportion. Intracranial findings are similar to comparison. Mastoid air cells and visualized portions of the paranasal sinuses are clear. No acute bony findings. IMPRESSION: Negative non-contrast CT head examination for acute finding Mild atrophy and chronic ischemic change similar to comparison. Carotid Doppler: FINDINGS: Areas of hard plaquing are seen in both distal common carotid arteries, greater on the left. Stenosis of 50-70% based on NASCET criteria noted involving both distal common carotid arteries, slightly greater on the left. Moderate hard plaquing is seen in both proximal internal carotid arteries, slightly greater on the right. Stenosis estimated less than 50% based on NASCET criteria noted involving both carotid bulbs. Peak systolic and end diastolic velocity values and the ICA/CCA ratios are in the non-hemodynamically significant range. Antegrade flow seen in both vertebral arteries. IMPRESSION: Multifocal atheromatous plaquing is present involving both distal common carotid artery seen in both proximal internal carotid arteries. Visually, stenosis based on NASCET criteria between 50-70% is seen in both distal common carotid arteries, slightly worse on the left. Less than 50% stenosis based on NASCET criteria is seen in both carotid bulbs. No hemodynamically significant stenosis is identified, however, on either side. ECHO: EF 51% LEFT VENTRICULAR WALL MOTION: PARADOXICAL SEPTAL MOTION. DOPPLER/COLOR FLOW: NORMAL COMMENTS: LEFT VENTRICULAR HYPERTROPHY. NORMAL LEFT VENTRICULAR EJECTION FRACTION. NO WALL MOTION ABNORMALITY. PARADOXICAL SEPTAL MOTION.. AORTIC SCLEROSIS WITH NO AORTIC STENOSIS. Medical Problem List: Presyncope, abdominal pain, diarrhea likely related to viral gastroenteritis with dehydration Acute on chronic renal disease, stage IV Elevated troponin likely related to non ST wave WA with underlying history of CAD and chronic left bundle branch block Diabetes mellitus type 2 Hypertension Hyperlipidemia Depression with anxiety Dementia GERD with hiatal hernia Carotid arterial disease Cholelithiasis without cholecystitis Anemia likely dilutional with underlying iron and B12 deficiency Dementia Brief History of Present Illness: 62-year-old female presented to the emergency room with dizziness and lightheadedness. Patient with multiple medical problems including diabetes, chronic renal disease , depression with anxiety, hypertension and dementia. Patient had been doing well yesterday. She reports getting up around 2:00 a.m. with a stomach ache. She proceeded to go to the bathroom. At which time she noted nausea with episode of vomiting. She reported dizziness at that time with constipation. The patient further reported some back pain with neck pain. Mild chest discomfort noted. She denied any shortness of breath or palpitation. ER had reported some syncope but patient confirmed that she did not have a syncopal episode. She only reported dizziness. Since her symptoms did not improve she came to the ER for further evaluation. In the ER patient evaluated. Patient slightly tachycardic. Blood pressure stable. The hemoglobin 12.8, white count 10.8. Sodium 144, potassium 3.7, BUN of 44, creatinine 2.7 with a GFR of 18. Glucose 268. Chest x-ray unremarkable. CT head showed no acute changes. CT scan showed old pulmonary granulomatous disease, small hiatal hernia, gallstone without cholecystitis, arteriosclerotic disease, bilateral L5 spondylosis, old bilateral rib fractures and T11 fracture and hypovolemia. Patient was given IV fluids. She reports having good bowel movement in the emergency room with mild diarrhea. She denies any abdominal pain at this time. Patient appears dry. Patient was admitted for observation related to presyncope likely viral gastroenteritis, dehydration with acute on chronic renal disease, stage4. When I saw the patient ER, she appeared dry. Patient receiving IV fluids. Patient does not appear septic time. Patient appropriate. Again patient denied a syncopal episode. Patient reports no further abdominal pain. Patient denies chest pain or shortness of breath at this time. Home medications reviewed. This includes Lasix, hydralazine, Lipitor, Calcitrol, Plavix, B12, iron, folic acid, glipizide, lisinopril, Namenda, Paxil, and tramadol. Hospital Course: Patient presented with presyncope, abdominal pain and diarrhea likely related to viral gastritis with dehydration. CT scan of the head unremarkable. CT abdomen and show no evidence of obstruction. Small hiatal hernia, gallstones were identified. Hypovolemia was also identified. Patient was given IV fluids. Patient responded well. Renal function was also compromised. Medications were adjusted and discontinued. During the course of her stay her condition improved. She is without any significant nausea, vomiting or abdominal pain. Lisinopril was discontinued in her stay due to acute renal failure. Nephrology and Cardiology were also consulted. At discharge lisinopril has been discontinued. Will recommend to continue with Pepcid 20 mg daily for her GERD and hiatal hernia. Education on gallstones will be provided. Patient may follow up as an outpatient with surgery to further assess. Recommend to maintain her oral intake. This can be followed up by her PCP and nephrology. Patient found to have elevated troponin likely underlying non ST wave WA with history of CAD and chronic left bundle branch block. Patient was evaluated by cardiology. Cardiology recommended no intervention at this time due to her chronic renal disease. This can be further addressed as an outpatient with her shield runner in [place]. This will need to be coordinated with the help of her medical administrative assistant due to her renal disease. At discharge she will continue with Plavix 75 mg daily, Lipitor 20 mg daily. Further adjustment in medication can be done by her medical administrative assistant and shield runner. Patient presented with acute on chronic renal disease, stage IV. This is likely from dehydration. Patient received IV fluids with improvement. Medications have been adjusted. Lisinopril discontinued. At discharge patient will continue off lisinopril. Recommend no further use of nonsteroidal anti- inflammatories. Future medications 1 GB renally dose. Recommend a recheck BMP in 1 week and follow up with her medical administrative assistant to further address and monitor. Patient with diabetes type 2. Blood sugars remained stable. At discharge she may continue with glipizide 2.5 mg daily. Recommend to maintain blood sugars less 140 fasting and less than 200 after meals. Further adjustment can be done by her PCP. Patient with hypertension. Medications were adjusted in her stay. Lisinopril discontinued due to her renal disease. Hydralazine was decreased. At discharge she will continue with hydralazine 25 mg 1 pill twice daily. Recommend to maintain blood pressures as 150/80. If patient requires further medication will need to consider beta-slick therapy. Further adjustment can be done by her PCP or cardiology. Patient with depression anxiety. This has remained stable. Patient may continue with Paxil 40 mg daily. Patient with dementia. This has remained stable. Patient will continue with Namenda 10 mg 1 pill twice daily. Patient with carotid arterial disease. Ultrasound reviewed. Patient will continue with Plavix and Lipitor as directed. Recommend to follow up with cardiology to further monitor. Patient with anemia. Patient with history of iron and B12 deficiency. At discharge she will continue with iron and B12 supplementation. Recommend to recheck lab-CBC in 1-2 weeks to follow her progress. Patient with GERD and hiatal hernia. At discharge she will continue with Pepcid 20 mg daily. Recommend to follow up with GI as an outpatient to further address. Vital Signs/Physical Exam: Temp Pulse Resp BP Pulse Ox 97.9 F 67 20 120/59 L 96 07/19/18 08:00 07/19/18 08:00 07/19/18 08:00 07/19/18 08:00 07/19/18 08:00 General: Alert, In no apparent distress, Oriented x3, Cooperative HEENT: Atraumatic Neck: Supple Respiratory: Clear to auscultation bilaterally, Normal air movement Cardiovascular: Normal pulses, Regular rate/rhythm Gastrointestinal: Normal bowel sounds, Soft and benign, Non-distended, No tenderness, No masses, No rebound, No guarding Musculoskeletal: No erythema, No tenderness, No warmth Integumentary: No erythema, No warmth, No cyanosis Neurological: Normal speech, Normal strength at 5/5 x4 extr, Normal tone, Normal affect Laboratory Data at Discharge: WBC 6.4 K/uL (4.3-10.9) D 07/18/18 03:49 Hgb 9.4 g/dL (12.0-15.0) L 07/18/18 07:50 Hct 27.8 % (36.0-45.0) L 07/18/18 07:50 Plt Count 126 K/uL (152-406) L D 07/18/18 03:49 PT 10.4 SECONDS (9.5-12.5) 07/17/18 03:00 INR 0.88 07/17/18 03:00 Sodium 142 mmol/L (136-145) 07/18/18 03:49 Potassium 4.3 mmol/L (3.5-5.1) 07/18/18 03:49 BUN 45 mg/dL (7-18) H 07/18/18 03:49 Creatinine 2.35 mg/dL (0.55-1.3) H 07/18/18 03:49 Glucose 157 mg/dL (74-106) H 07/18/18 03:49 Uric Acid 6.2 mg/dL (2.6-6.0) H 07/18/18 03:49 Phosphorus 3.4 mg/dL (2.5-4.9) 07/18/18 03:49 Magnesium 2.0 mg/dL (1.8-2.4) 07/18/18 03:49 Total Bilirubin 0.4 mg/dL (0.2-1.0) 07/17/18 03:00 AST 20 U/L (15-37) 07/17/18 03:00 ALT 19 U/L (12-78) 07/17/18 03:00 Alkaline Phosphatase 63 U/L (45-117) 07/17/18 03:00 Troponin I 1.89 ng/mL (0.0-0.045) H* 07/17/18 20:09 Triglycerides 183 mg/dL (<150) H 07/18/18 03:49 Cholesterol 170 mg/dL (<200) 07/18/18 03:49 HDL Cholesterol 57 mg/dL (40-60) 07/18/18 03:49 Cholesterol/HDL Ratio 2.98 07/18/18 03:49 Lipase 239 U/L (73-393) 07/17/18 03:00 Home Medications: Atorvastatin Calcium [Lipitor*] 20 mg PO BEDTIME tab 03/02/18 Bisacodyl [Dulcolax*] 10 mg TN DAILY PRN supp 03/02/18 Cholecalciferol (Vitamin D3) [Vitamin D 5,000 IU Cap*] 5,000 unit PO DAILY cap 03/02/18 Clopidogrel Bisulfate [Plavix*] 75 mg PO DAILY tablet 03/02/18 Cyanocobalamin [Vitamin B-12*] 1,000 mcg PO DAILY tab 03/02/18 Docusate/Senna [Senokot-S*] 2 tab PO BEDTIME tab 03/02/18 Iron/FA/Vit B-Com W/C [Hemocyte Plus*] 1 tab PO DAILY WITH BREAKFAST tab Lactulose [Cephulac*] 30 ml PO BID PRN ucup 03/02/18 Memantine HCl [Namenda*] 10 mg PO BID tablet 03/02/18 PARoxetine HCl [Paxil*] 40 mg PO DAILY tab 03/02/18 Polyethyl Gly 3350 [Glycolax*] 17 gm PO DAILY udbot 03/02/18 glipiZIDE [Glucotrol*] 2.5 mg PO DAILY WITH BREAKFAST tab 03/02/18 Sodium Bicarbonate 325 mg PO BID 07/17/18 Tofacitinib Citrate [Xeljanz] 5 mg PO DAILY 07/17/18 Famotidine [Pepcid*] 20 mg PO DAILY #30 tab 07/19/18 Hydralazine [Apresoline*] 25 mg PO BID #60 tab 07/19/18 New Medications: Famotidine [Pepcid*] 20 mg PO DAILY #30 tab Hydralazine [Apresoline*] 25 mg PO BID #60 tab Patient Discharge Instructions: 1. Recommend a follow up with her PCP in 1 week to follow up this hospitalization. 2. Patient presented with presyncope, abdominal pain and diarrhea likely related to viral gastritis with dehydration. CT scan of the head unremarkable. CT abdomen and show no evidence of obstruction. Small hiatal hernia, gallstones were identified. Hypovolemia was also identified. Patient was given IV fluids. Patient responded well. Renal function was also compromised. Medications were adjusted and discontinued. During the course of her stay her condition improved. She is without any significant nausea, vomiting or abdominal pain. Lisinopril was discontinued in her stay due to acute renal failure. Nephrology and Cardiology were also consulted. At discharge lisinopril has been discontinued. Will recommend to continue with Pepcid 20 mg daily for her GERD and hiatal hernia. Education on gallstones will be provided. Patient may follow up as an outpatient with surgery to further assess. Recommend to maintain her oral intake. This can be followed up by her PCP and nephrology. 3. Patient found to have elevated troponin likely underlying non ST wave WA with history of CAD and chronic left bundle branch block. Patient was evaluated by cardiology. Cardiology recommended no intervention at this time due to her chronic renal disease. This can be further addressed as an outpatient with her shield runner in [place]. This will need to be coordinated with the help of her medical administrative assistant due to her renal disease. At discharge she will continue with Plavix 75 mg daily, Lipitor 20 mg daily. Further adjustment in medication can be done by her medical administrative assistant and shield runner. 4. Patient presented with acute on chronic renal disease, stage IV. This is likely from dehydration. Patient received IV fluids with improvement. Medications have been adjusted. Lisinopril discontinued. At discharge patient will continue off lisinopril. Recommend no further use of nonsteroidal anti-inflammatories. Future medications 1 GB renally dose. Recommend a recheck BMP in 1 week and follow up with her medical administrative assistant to further address and monitor. 5. Patient with diabetes type 2. Blood sugars remained stable. At discharge she may continue with glipizide 2.5 mg daily. Recommend to maintain blood sugars less 140 fasting and less than 200 after meals. Further adjustment can be done by her PCP. 6. Patient with hypertension. Medications were adjusted in her stay. Lisinopril discontinued due to her renal disease. Hydralazine was decreased. At discharge she will continue with hydralazine 25 mg 1 pill twice daily. Recommend to maintain blood pressures as 150/80. If patient requires further medication will need to consider beta-slick therapy. Further adjustment can be done by her PCP or cardiology. 7. Patient with depression anxiety. This has remained stable. Patient may continue with Paxil 40 mg daily. 8. Patient with dementia. This has remained stable. Patient will continue with Namenda 10 mg 1 pill twice daily. 9. Patient with carotid arterial disease. Ultrasound reviewed. Patient will continue with Plavix and Lipitor as directed. Recommend to follow up with cardiology to further monitor. 10. Patient with anemia. Patient with history of iron and B12 deficiency. At discharge she will continue with iron and B12 supplementation. Recommend to recheck lab-CBC in 1-2 weeks to follow her progress. 11. Patient with GERD and hiatal hernia. At discharge she will continue with Pepcid 20 mg daily. Recommend to follow up with GI as an outpatient to further address. Diet: Renal Activity: Fall precautions Time spent managing pt's care (in minutes): 55
[2018-07-19] MEDS: ACETAMINOPHEN 500 MG TAB PO PRN (10:10)
[2018-07-19 10:50] LABS: Potassium 4.3 mmol/L (3.5-5.1)
[2018-07-19 11:51] VITALS: O2SAT 98
[2018-07-19 12:16] VITALS: BP 139/60; TEMP 97.3
--- NOTE | 2018-07-19 17:52 | P.PN ---
Date of Service: 07/18/18 Vital Signs Temp Pulse Resp BP Pulse Ox 97.3 F 73 20 139/60 95 07/19/18 12:00 07/19/18 12:00 07/19/18 12:00 07/19/18 12:00 07/19/18 12:00 Assessment/ Plan: Nephrology. Feeling better but still with indigestion and anorexia. CPS stable without CP or SOB. No acute events overnight. Vitals, medications, blood work and imaging reviewed in the chart. General: In no apparent distress, Oriented x3, Cooperative HEENT: Atraumatic Neck: Supple Respiratory: Clear to auscultation bilaterally, Normal air movement Cardiovascular: No edema, Regular rate/rhythm Gastrointestinal: Non-distended, No guarding, Tenderness Musculoskeletal: No clubbing, No contractures Integumentary: No rashes, No cyanosis Neurological: Normal speech Laboratory Data (last 24 hrs) 07/17/18 12:00: Troponin I 2.39 H* 07/17/18 03:00: PT 10.4, INR 0.88 07/17/18 03:00: WBC 10.8, Hgb 12.8, Hct 39.1, Plt Count 257 07/17/18 03:00: Sodium 144, Potassium 3.7, BUN 44 H, Creatinine 2.70 H, Glucose 268 H, Magnesium 2.3, Total Bilirubin 0.4, AST 20, ALT 19, Alkaline Phosphatase 63, Lipase 239 07/17/18 02:56: Lipase Cancelled Imagings Data: Reason for Exam: CHEST PAIN Report Status: Signed EXAM DESCRIPTION: CT - Chest Abd Pelvis Wo Con - 07/17/2018 6:19 am CLINICAL HISTORY: Chest pain and dizziness after awaking at 2:00 AM and using bathroom. COMPARISON: None. TECHNIQUE: Axial CT imaging of the chest, abdomen and pelvis performed without intravenous contrast. Reformatted coronal and sagittal images obtained. This exam was performed according to our departmental dose-optimization program which includes automated exposure control, adjustment of the mA and/or kV according to patient size and/or use of iterative reconstruction technique FINDINGS: CHEST HEART/VESSELS: Heart is enlarged. No pericardial fluid. Normal caliber thoracic aorta and main pulmonary artery. Coronary artery calcifications noted. MEDIASTINUM AND DAREK: No adenopathy. Normal central airways. Normal esophagus. Small hiatal hernia. LUNGS/PLEURA: Small ill-defined groundglass densities posterior right lower lobe consistent with small focal areas of pneumonitis. No edema. No pneumothorax. No pleural fluid. Calcified posterior and medial left lower lobe pleural plaque noted. Anterior left lower lobe 3 mm calcified granuloma. CHEST WALL/SOFT TISSUES: Old fractures of anterior right ribs two through seven. Old fracture anterior lateral left ribs two through eight. Old posterior left rib 10 fracture. There is a 50% anterior wedge compression fracture of T11 without retropulsion. Vacuum disc at T9-10 and T10-11. Mild thoracic spondylosis with multilevel endplate Schmorl's nodes. ABDOMEN: LIVER/GALLBLADDER: Normal liver. Layering gallstones within the gallbladder. No cholecystitis or biliary dilatation. SPLEEN/PANCREAS: Normal spleen. Atrophy of the pancreas. KIDNEYS/ADRENAL GLANDS: Normal adrenal glands. Bilateral renal vascular calcifications. No renal stone or mass. RETROPERITONEAL VESSELS/NODES: Significant aorta and mesenteric vessels atherosclerosis. No aneurysm. Inferior vena cava is flat and contour indicative of hypovolemia. No adenopathy. BOWEL: Small hiatal hernia. Normal stomach. Small bowel loops appear normal. Normal appendix in the right lower quadrant. Normal colon. MESENTERY/PERITONEUM: No adenopathy. No ascites. No free air. PELVIS: BLADDER: Unremarkable bladder. GENITAL ORGANS: Uterus is surgically absent. PERITONEUM: No pelvic free fluid or adenopathy. BONES AND SOFT TISSUES: Bilateral L5 spondylolysis. Minimal anterior subluxation of L5 on S1. Left proximal femur transcervical fixation screws noted. Intact right hip. IMPRESSION: 1. Old pulmonary granulomatous disease. 2. Small focal areas of right lower lobe pneumonitis 3. Small hiatal hernia. 4. Gallstones without cholecystitis. 5. Atherosclerotic disease 6. Bilateral L5 spondylolysis with Grade 1 spondylolisthesis of L5 on S1. 7. Old bilateral rib and T11 fractures. 8. Hypovolemia. Conclusions/Impression: A/ ZOILA likely hypovolemia. Acidosis. CKD IV with proteinuria. HTN with CKD/ CHF. AUGUSTIN. DM II with CKD. Diastolic CHF, chronic. Anemia in chronic illness. Gastroenteritis concerning for viral syndrome vs food poisoning. P/ Continue current POC and Medications. Continue IVF. Will add bicarb therapy as needed. Titrate insulin as needed to improved BG. Agree with cardiology evaluation. Low sodium diet. No NSAIDs. AM labs. Daily weight. Case discussed with Dr. Thompson.
--- NOTE | 2018-07-19 18:29 | P.PN ---
Date of Service: 07/19/18 Vital Signs Temp Pulse Resp BP Pulse Ox 97.3 F 73 20 139/60 95 07/19/18 12:00 07/19/18 12:00 07/19/18 12:00 07/19/18 12:00 07/19/18 12:00 Assessment/ Plan: Nephrology. Feeling even better today but states that she is just not hungry. CPS stable without CP or SOB. No acute events overnight. Vitals, medications, blood work and imaging reviewed in the chart. General: In no apparent distress, Oriented x3, Cooperative HEENT: Atraumatic Neck: Supple Respiratory: Clear to auscultation bilaterally, Normal air movement Cardiovascular: No edema, Regular rate/rhythm Gastrointestinal: Non-distended, No guarding, Tenderness Musculoskeletal: No clubbing, No contractures Integumentary: No rashes, No cyanosis Neurological: Normal speech Laboratory Data (last 24 hrs) 07/17/18 12:00: Troponin I 2.39 H* 07/17/18 03:00: PT 10.4, INR 0.88 07/17/18 03:00: WBC 10.8, Hgb 12.8, Hct 39.1, Plt Count 257 07/17/18 03:00: Sodium 144, Potassium 3.7, BUN 44 H, Creatinine 2.70 H, Glucose 268 H, Magnesium 2.3, Total Bilirubin 0.4, AST 20, ALT 19, Alkaline Phosphatase 63, Lipase 239 07/17/18 02:56: Lipase Cancelled Imagings Data: Reason for Exam: CHEST PAIN Report Status: Signed EXAM DESCRIPTION: CT - Chest Abd Pelvis Wo Con - 07/17/2018 6:19 am CLINICAL HISTORY: Chest pain and dizziness after awaking at 2:00 AM and using bathroom. COMPARISON: None. TECHNIQUE: Axial CT imaging of the chest, abdomen and pelvis performed without intravenous contrast. Reformatted coronal and sagittal images obtained. This exam was performed according to our departmental dose-optimization program which includes automated exposure control, adjustment of the mA and/or kV according to patient size and/or use of iterative reconstruction technique FINDINGS: CHEST HEART/VESSELS: Heart is enlarged. No pericardial fluid. Normal caliber thoracic aorta and main pulmonary artery. Coronary artery calcifications noted. MEDIASTINUM AND DAREK: No adenopathy. Normal central airways. Normal esophagus. Small hiatal hernia. LUNGS/PLEURA: Small ill-defined groundglass densities posterior right lower lobe consistent with small focal areas of pneumonitis. No edema. No pneumothorax. No pleural fluid. Calcified posterior and medial left lower lobe pleural plaque noted. Anterior left lower lobe 3 mm calcified granuloma. CHEST WALL/SOFT TISSUES: Old fractures of anterior right ribs two through seven. Old fracture anterior lateral left ribs two through eight. Old posterior left rib 10 fracture. There is a 50% anterior wedge compression fracture of T11 without retropulsion. Vacuum disc at T9-10 and T10-11. Mild thoracic spondylosis with multilevel endplate Schmorl's nodes. ABDOMEN: LIVER/GALLBLADDER: Normal liver. Layering gallstones within the gallbladder. No cholecystitis or biliary dilatation. SPLEEN/PANCREAS: Normal spleen. Atrophy of the pancreas. KIDNEYS/ADRENAL GLANDS: Normal adrenal glands. Bilateral renal vascular calcifications. No renal stone or mass. RETROPERITONEAL VESSELS/NODES: Significant aorta and mesenteric vessels atherosclerosis. No aneurysm. Inferior vena cava is flat and contour indicative of hypovolemia. No adenopathy. BOWEL: Small hiatal hernia. Normal stomach. Small bowel loops appear normal. Normal appendix in the right lower quadrant. Normal colon. MESENTERY/PERITONEUM: No adenopathy. No ascites. No free air. PELVIS: BLADDER: Unremarkable bladder. GENITAL ORGANS: Uterus is surgically absent. PERITONEUM: No pelvic free fluid or adenopathy. BONES AND SOFT TISSUES: Bilateral L5 spondylolysis. Minimal anterior subluxation of L5 on S1. Left proximal femur transcervical fixation screws noted. Intact right hip. IMPRESSION: 1. Old pulmonary granulomatous disease. 2. Small focal areas of right lower lobe pneumonitis 3. Small hiatal hernia. 4. Gallstones without cholecystitis. 5. Atherosclerotic disease 6. Bilateral L5 spondylolysis with Grade 1 spondylolisthesis of L5 on S1. 7. Old bilateral rib and T11 fractures. 8. Hypovolemia. Conclusions/Impression: A/ ZOILA likely hypovolemia. Acidosis. CKD IV with proteinuria. HTN with CKD/ CHF. AUGUSTIN. DM II with CKD. Diastolic CHF, chronic. Anemia in chronic illness. Gastroenteritis concerning for viral syndrome vs food poisoning. P/ Continue current POC and Medications. Continue IVF. Will add bicarb therapy as needed. Titrate insulin as needed to improved BG. Encourage nutrition. Low sodium diet. No NSAIDs. AM labs. Daily weight. Case discussed with Dr. Thompson.
== END 2018-07-19 13:26 | disposition home or self-care (01) | DRG 682 ==
LOC: ER 02:44 → OBSVTOIN 07:29 → INTOOBSV 07:29 → ERHOLD 07:29 → 4TH 09:26 → OBSVTOIN 13:19
PROVIDERS: ADMIT Family Medicine; ATTEND Family Medicine
DX: N17.9 Acute kidney failure, unspecified (principal); I21.4 Non-ST elevation (NSTEMI) myocardial infarction; I13.0 Hypertensive heart and chronic kidney disease with heart failure and stage 1 through stage 4 chronic kidney disease, or unspecified chronic kidney disease; I50.32 Chronic diastolic (congestive) heart failure; E87.2 Acidosis; A08.4 Viral intestinal infection, unspecified; N18.4 Chronic kidney disease, stage 4 (severe); E86.0 Dehydration; I25.10 Atherosclerotic heart disease of native coronary artery without angina pectoris; E11.22 Type 2 diabetes mellitus with diabetic chronic kidney disease; E78.5 Hyperlipidemia, unspecified; F41.8 Other specified anxiety disorders; F03.90 Unspecified dementia, unspecified severity, without behavioral disturbance, psychotic disturbance, mood disturbance, and anxiety; G40.909 Epilepsy, unspecified, not intractable, without status epilepticus; K21.9 Gastro-esophageal reflux disease without esophagitis; K44.9 Diaphragmatic hernia without obstruction or gangrene; G47.33 Obstructive sleep apnea (adult) (pediatric); I44.7 Left bundle-branch block, unspecified; D51.9 Vitamin B12 deficiency anemia, unspecified; D50.9 Iron deficiency anemia, unspecified; I65.23 Occlusion and stenosis of bilateral carotid arteries; K80.20 Calculus of gallbladder without cholecystitis without obstruction; G89.29 Other chronic pain; M54.9 Dorsalgia, unspecified; Z95.5 Presence of coronary angioplasty implant and graft; Z88.5 Allergy status to narcotic agent; Z88.0 Allergy status to penicillin
CPT/HCPCS: 36415; 70450; 71045; 71250; 74176; 80048; 80061; 80076; 81001; 82043; 82550; 82553; 82570; 82962; 83690; 83735; 83880; 84100; 84300; 84439; 84443; 84484; 84550; 85014; 85018; 85025; 85610; 93005; 93306; 93880; 96360; 96361; 97116; 97163; 99285; G0378; J1650; J7030

== ENCOUNTER 2018-11-22 13:12 | Observation (INO) | payer OTHER ==
--- NOTE | 2018-11-22 14:13 | RAD REPORT ---
EXAM DESCRIPTION: RAD - Chest Single View - 11/22/2018 2:06 pm CLINICAL HISTORY: CHEST PAIN Chest pain. COMPARISON: Chest Single View dated 07/17/2018; Abdomen 1 View (KUB) dated 02/24/2018; Chest Single Vie w dated 02/24/2018; Chest Single View dated 02/14/2018 FINDINGS: Portable technique limits examination quality. Linear subsegmental atelectasis is present in the left mid lung. Mild interstitial pulmonary edema is seen. The heart is moderately enlarged in size. No displaced fractures. IMPRESSION: Mild CHF.
[2018-11-22 14:47] LABS: Absolute Lymphocytes (CBC) 1.3 K/uL (0.7-4.9); Basophils % 0.7 % (0-1.3); Hematocrit 32.7 % (36.0-45.0); Lymphocytes % 35.9 % (15.3-44.8); MPV 9.3 fL (7.6-11.3); RBC Red Blood Cell Count 3.39 M/uL (3.86-4.86)
[2018-11-22 14:49] LABS: Protime INR 1.01
[2018-11-22 15:00] LABS: Albumin 3.5 g/dL (3.4-5.0); Bilirubin Direct 0.1 mg/dL (0-0.2); Bilirubin Total 0.3 mg/dL (0.2-1.0); Potassium 4.1 mmol/L (3.5-5.1); Protein, Total 7.8 g/dL (6.4-8.2); Troponin (Emerg Dept Use Only) 0.05 ng/mL (0.0-0.045)
--- NOTE | 2018-11-22 15:31 | RAD REPORT ---
EXAM DESCRIPTION: CT - Head Brain Wo Cont - 11/22/2018 3:08 pm CLINICAL HISTORY: Seizure-like activity COMPARISON: July 17 TECHNIQUE: Axial 5 mm thick images of the head were obtained without IV contrast. All CT scans are performed using dose optimization technique as appropriate and may include automated exposure control or mA/KV adjustment according to patient size. FINDINGS: No intracranial hemorrhage, mass, edema or shift of mid-line structures. No acute infarcti on changes seen. No abnormal extra-axial fluid collections. Mild atrophy and chronic ischemic changes are present. Ventricles are in proportion to volume loss. Mastoid air cells and visualized portions of the paranasal sinuses are clear. No acute bony findings. IMPRESSION: Negative non-contrast CT head examination for acute finding. Mild atrophy and chronic ischemic change matching the comparison study.
[2018-11-22] MEDS ORDERED: LORazepam 2 MG/ML VIAL ONE (15:50)
[2018-11-22 16:01] LABS: Urine Blood TRACE (NEG); Urine Glucose NEGATIVE (NEG); Urine Protein 3+ (NEG); Urine Specific Gravity 1.025 (1.005-1.030); Urine pH 5.5 (5.0-7.0)
--- NOTE | 2018-11-22 16:35 | EDPHYS ---
Physician Documentation [facility] Name: Viri Jefferson Age: 63 yrs Sex: Female : 1955 Arrival Date: 11/22/2018 Time: 13:14 Bed 23 Private MD: ED Physician Rojas Mendoza HPI: 11/22 13:42 This 63 yrs old Female presents to ER via Wheelchair with complaints of jmm Shaking. 13:42 The patient's problem is reported as an apparent seizure, No loss of consciousness. jmm Patient was not incontinent of bowel or bladder. Onset: The symptoms/episode began/occurred acutely, at 12:30. Duration: The episode is continuous. The symptoms are alleviated by nothing. The symptoms are aggravated by nothing. Associated signs and symptoms: Pertinent negatives: abdominal pain, confusion, vomiting. This is a 63 year old female with a history of anxiety, depression, DM, CKD that presents to the ED with complaints of generalized shaking to her limbs. Patient was recently discharged from [facility] for similar symptoms with no positive results. . Historical: - Allergies: 13:31 Demerol; sv 13:31 Morphine; sv 13:31 PENICILLINS; sv - Home Meds: 13:55 atorvastatin 20 mg Oral Tb24 1 tab once daily [Active]; Ferrous Sulfate Oral [Active]; ca1 folic acid 400 mcg Oral Tb24 1 tab once daily [Active]; Furosemide Oral [Active]; glipizide 5 mg Oral Tb24 1 tab once daily [Active]; Hydralazine Oral [Active]; memantine Oral [Active]; paroxetine Oral [Active]; Sodium Bicarbonate Oral [Active]; Vitamin b 12 1000 mcg daily [Active]; Xeljanz 5 mg Oral Tb24 1 tab 2 times per day [Active]; Vitamin D Oral [Active]; - PMHx: 13:31 Anxiety; Depression; Diabetes - NIDDM; High Cholesterol; Hypertension; Seizures; sv - PSHx: 13:31 T 10 vertebrae fracture; hip fracture; ankle fracture; elbow fracture; left wrist sv fracture; stage 4 kidney failure; - Immunization history:: Adult Immunizations up to date. - Social history:: Smoking status: Patient/guardian denies using tobacco. - Ebola Screening: : Patient negative for fever greater than or equal to 101.5 degrees Fahrenheit, and additional compatible Ebola Virus Disease symptoms Patient denies exposure to infectious person Patient denies travel to an Ebola-affected area in the 21 days before illness onset No symptoms or risks identified at this time. ROS: 13:42 Constitutional: Negative for fever, chills, and weight loss, Cardiovascular: Negative jmm for chest pain, palpitations, and edema, Respiratory: Negative for shortness of breath, cough, wheezing, and pleuritic chest pain. 13:42 Neuro: Positive for seizure activity, Negative for speech changes. 13:42 All other systems are negative. Exam: 13:42 Radiologist reports: negative jmm 13:42 Constitutional: This is a well developed, well nourished patient who is awake, alert, and in no acute distress. Head/Face: atraumatic. Eyes: EOMI, no conjunctival erythema appreciated ENT: Moist Mucus Membranes Neck: Trachea midline, Supple Chest/axilla: Normal chest wall appearance and motion. Cardiovascular: Regular rate and rhythm. No edema appreciated Respiratory: Normal respirations, no respiratory distress appreciated Abdomen/GI: Non distended, soft Skin: General appearance color normal 13:42 Musculoskeletal/extremity: tremors noted to all extremities. 13:42 Neuro: Orientation: is normal, Mentation: is normal, Memory: is normal, Motor: moves all fours. 13:42 Psych: Behavior/mood is pleasant, cooperative. Vital Signs: 13:31 BP 158 / 82; Pulse 98; Resp 18; Temp 98.8; Pulse Ox 97% ; Weight 78.93 kg; Height 5 ft. sv 5 in. (165.10 cm); 14:35 BP 176 / 83; Pulse 90; Resp 17 S; Pulse Ox 98% on R/A; ca1 15:30 BP 156 / 81; Pulse 82; Resp 17 S; Pulse Ox 100% on R/A; rv 16:14 BP 164 / 64; Pulse 87; Resp 18 S; Pulse Ox 95% on R/A; rv 17:02 BP 161 / 76; Pulse 89; Resp 18; Pulse Ox 97% on R/A; ca1 17:33 BP 158 / 75; Pulse 87; Resp 17 S; Pulse Ox 99% on R/A; ca1 18:05 BP 135 / 64; Pulse 81; Resp 16 S; Pulse Ox 96% on R/A; ca1 18:53 BP 121 / 47; Pulse 89; Resp 16 S; Pulse Ox 98% on R/A; ca1 13:31 Body Mass Index 28.95 (78.93 kg, 165.10 cm) sv MDM: 13:42 Patient medically screened. [facility] 16:27 Data reviewed: vital signs, nurses notes. Counseling: I had a detailed discussion with [facility] the patient and/or guardian regarding: the historical points, exam findings, and any diagnostic results supporting the discharge/admit diagnosis, lab results, radiology results. ED course: I discussed the patient with Dr. Collins whom will consult on admission. I discussed the patient with Dr. Craig whom accepted admission. I discussed plan of care with patient's PCP Dr. Jiang whom agrees with the plan of care. . 11/22 13:42 Order name: Basic Metabolic Panel; Complete Time: 15:00 [facility] 11/22 13:42 Order name: CBC with Diff; Complete Time: 14:58 [facility] 11/22 13:42 Order name: LFT's; Complete Time: 15:00 [facility] 11/22 13:42 Order name: Magnesium; Complete Time: 15:06 [facility] 11/22 13:42 Order name: NT PRO-BNP; Complete Time: 15:06 [facility] 11/22 13:42 Order name: PT-INR; Complete Time: 14:58 [facility] 11/22 13:42 Order name: Troponin (emerg Dept Use Only); Complete Time: 15:06 [facility] 11/22 13:42 Order name: XRAY Chest (1 view); Complete Time: 14:26 [facility] 11/22 13:50 Order name: CT Head Brain wo Cont; Complete Time: 15:46 [facility] 11/22 14:01 Order name: EEG Request [facility] 11/22 14:06 Order name: FSBG Nova; Complete Time: 14:26 rv 11/22 15:51 Order name: Urine Dipstick--Ancillary (enter results); Complete Time: 16:08 bd 11/22 13:42 Order name: EKG; Complete Time: 13:43 [facility] 11/22 13:42 Order name: Cardiac monitoring; Complete Time: 13:43 [facility] 11/22 13:42 Order name: EKG - Nurse/Tech; Complete Time: 13:53 [facility] 11/22 13:42 Order name: IV Saline Lock; Complete Time: 13:53 [facility] 11/22 13:42 Order name: Labs collected and sent; Complete Time: 13:53 [facility] 11/22 13:42 Order name: O2 Per Protocol; Complete Time: 13:43 [facility] 11/22 13:42 Order name: O2 Sat Monitoring; Complete Time: 13:43 [facility] 11/22 13:42 Order name: Urine Dipstick-Ancillary (obtain specimen); Complete Time: 15:30 [facility] Administered Medications: 15:52 Drug: Ativan 1 mg Route: IVP; Site: right forearm; ca1 17:03 Follow up: Response: No adverse reaction; Marked relief of symptoms ca1 16:49 Drug: Tylenol 650 mg Route: PO; ca1 17:03 Follow up: Response: No adverse reaction; Pain is decreased ca1 Disposition: 11/23 06:47 Co-signature as Attending Physician, Rojas Mendoza MD I agree with the assessment and hemanth plan of care. Disposition: 11/22/18 16:33 Hospitalization ordered by Erica Craig for Observation. Preliminary diagnosis is Epilepsy and recurrent seizures. - Bed requested for Telemetry/MedSurg (observation). - Status is Observation. ca1 - Condition is Stable. - Problem is an acute exacerbation. - Symptoms have improved. UTI on Admission? No Signatures: Dispatcher [employer] EDMS Prachi Wallace Stephanie, RN RN Rojas Kramer MD MD cha Mickail, Joel, PA PA Josie Plaza RN RN ca1 Corrections: (The following items were deleted from the chart) 11/22 18:30 16:33 Hospitalization Ordered by Erica Craig MD for Observation. Preliminary diagnosis bd is Epilepsy and recurrent seizures. Bed requested for Telemetry/MedSurg (observation). Status is Observation. Condition is Stable. Problem is an acute exacerbation. Symptoms have improved. UTI on Admission? No. [facility] 18:55 18:30 11/22/2018 16:33 Hospitalization Ordered by Erica Craig MD for Observation. ca1 Preliminary diagnosis is Epilepsy and recurrent seizures. Bed requested for Telemetry/MedSurg (observation). Status is Observation. Condition is Stable. Problem is an acute exacerbation. Symptoms have improved. UTI on Admission? No. bd
--- NOTE | 2018-11-22 16:35 | ER ---
Nurse's Notes [facility] Name: Viri Jefferson Age: 63 yrs Sex: Female : 1955 Arrival Date: 11/22/2018 Time: 13:14 Bed 23 Private MD: Diagnosis: Epilepsy and recurrent seizures Presentation: 11/22 13:29 Presenting complaint: Patient states: Started shaking to all extremities about an hour sv ago, recently was admitted in [facility] for it this week and could not find anything wrong. Transition of care: patient was not received from another setting of care. Onset of symptoms was November 22, 2018. Risk Assessment: Do you want to hurt yourself or someone else? Patient reports no desire to harm self or others. Care prior to arrival: None. 13:29 Method Of Arrival: Wheelchair sv 13:29 Acuity: RUSS 3 sv 13:42 Initial Sepsis Screen: Does the patient meet any 2 criteria? No. Patient's initial ca1 sepsis screen is negative. Does the patient have a suspected source of infection? No. Patient's initial sepsis screen is negative. Historical: - Allergies: 13:31 Demerol; sv 13:31 Morphine; sv 13:31 PENICILLINS; sv - Home Meds: 13:55 atorvastatin 20 mg Oral Tb24 1 tab once daily [Active]; Ferrous Sulfate Oral [Active]; ca1 folic acid 400 mcg Oral Tb24 1 tab once daily [Active]; Furosemide Oral [Active]; glipizide 5 mg Oral Tb24 1 tab once daily [Active]; Hydralazine Oral [Active]; memantine Oral [Active]; paroxetine Oral [Active]; Sodium Bicarbonate Oral [Active]; Vitamin b 12 1000 mcg daily [Active]; Xeljanz 5 mg Oral Tb24 1 tab 2 times per day [Active]; Vitamin D Oral [Active]; - PMHx: 13:31 Anxiety; Depression; Diabetes - NIDDM; High Cholesterol; Hypertension; Seizures; sv - PSHx: 13:31 T 10 vertebrae fracture; hip fracture; ankle fracture; elbow fracture; left wrist sv fracture; stage 4 kidney failure; - Immunization history:: Adult Immunizations up to date. - Social history:: Smoking status: Patient/guardian denies using tobacco. - Ebola Screening: : Patient negative for fever greater than or equal to 101.5 degrees Fahrenheit, and additional compatible Ebola Virus Disease symptoms Patient denies exposure to infectious person Patient denies travel to an Ebola-affected area in the 21 days before illness onset No symptoms or risks identified at this time. Screenin:39 Abuse screen: Denies threats or abuse. Denies injuries from another. Nutritional ca1 screening: No deficits noted. Tuberculosis screening: No symptoms or risk factors identified. Fall Risk Ambulatory Aid- Crutches/Cane/Walker (15 pts). Gait- Impaired (20 pts.). Total Hi Fall Scale indicates Low Risk Score (25-44 pts). Fall prevention measures have been instituted. Side Rails Up X 2 Family Present and informed to notify staff if they need to leave bedside As available Patient and Family Educated on Fall Prevention Program and strategies. Assessment: 13:39 General: Appears in no apparent distress. uncomfortable, Behavior is calm, cooperative, ca1 appropriate for age. General: Reports shaking all over. It comes and goes. Gets a few minutes of relief then shakes again. Mostly seen on lower extremities at this time but reports other body parts as well such as face and upper extremities. This episode of shaking started at around 1200 today. Pain: Denies pain. Neuro: Level of Consciousness is awake, alert, obeys commands, Oriented to person, place, time, situation, Appropriate for age. Cardiovascular: Heart tones S1 S2 present. Respiratory: Airway is patent Respiratory effort is even, unlabored, Respiratory pattern is regular, symmetrical. GI: Abdomen is round non-distended, Bowel sounds present X 4 quads. Abd is soft and non tender X 4 quads. : No deficits noted. No signs and/or symptoms were reported regarding the genitourinary system. EENT: No deficits noted. No signs and/or symptoms were reported regarding the EENT system. Derm: Skin is intact, is healthy with good turgor, Skin is pink, warm \T\ dry. Musculoskeletal: Circulation, motion, and sensation intact. Capillary refill < 3 seconds, Range of motion: intact in all extremities. 14:35 Reassessment: Patient appears in no apparent distress at this time. Patient and/or ca1 family updated on plan of care and expected duration. Pain level reassessed. Patient is alert, oriented x 3, equal unlabored respirations, skin warm/dry/pink. 15:30 Reassessment: Patient appears in no apparent distress at this time. Patient and/or rv family updated on plan of care and expected duration. Pain level reassessed. Patient is alert, oriented x 3, equal unlabored respirations, skin warm/dry/pink. 16:14 Reassessment: Patient appears in no apparent distress at this time. Patient and/or rv family updated on plan of care and expected duration. Pain level reassessed. Patient is alert, oriented x 3, equal unlabored respirations, skin warm/dry/pink. 17:02 Reassessment: Patient appears in no apparent distress at this time. Patient and/or ca1 family updated on plan of care and expected duration. Pain level reassessed. Patient is alert, oriented x 3, equal unlabored respirations, skin warm/dry/pink. Dr. Craig at bedside. 18:05 Reassessment: Patient appears in no apparent distress at this time. Patient and/or ca1 family updated on plan of care and expected duration. Pain level reassessed. Patient is alert, oriented x 3, equal unlabored respirations, skin warm/dry/pink. 18:05 Reassessment: Pt reports less shaking and pt is eating dinner at bedside with daughter ca1 assisting. 18:53 Reassessment: Patient appears in no apparent distress at this time. Patient is alert, ca1 oriented x 3, equal unlabored respirations, skin warm/dry/pink. Vital Signs: 13:31 BP 158 / 82; Pulse 98; Resp 18; Temp 98.8; Pulse Ox 97% ; Weight 78.93 kg; Height 5 ft. sv 5 in. (165.10 cm); 14:35 BP 176 / 83; Pulse 90; Resp 17 S; Pulse Ox 98% on R/A; ca1 15:30 BP 156 / 81; Pulse 82; Resp 17 S; Pulse Ox 100% on R/A; rv 16:14 BP 164 / 64; Pulse 87; Resp 18 S; Pulse Ox 95% on R/A; rv 17:02 BP 161 / 76; Pulse 89; Resp 18; Pulse Ox 97% on R/A; ca1 17:33 BP 158 / 75; Pulse 87; Resp 17 S; Pulse Ox 99% on R/A; ca1 18:05 BP 135 / 64; Pulse 81; Resp 16 S; Pulse Ox 96% on R/A; ca1 18:53 BP 121 / 47; Pulse 89; Resp 16 S; Pulse Ox 98% on R/A; ca1 13:31 Body Mass Index 28.95 (78.93 kg, 165.10 cm) sv ED Course: 13:14 Patient arrived in ED. rg4 13:30 Triage completed. sv 13:31 Arm band placed on. sv 13:35 Josie Miller, RN is Primary Nurse. ca1 13:39 Patient has correct armband on for positive identification. Bed in low position. Call ca1 light in reach. Side rails up X2. Pulse ox on. NIBP on. Warm blanket given. 13:39 No provider procedures requiring assistance completed. ca1 13:41 Anand Luque PA is PHCP. [facility] 13:41 Rojas Mendoza MD is Attending Physician. m 13:53 Inserted saline lock: 22 gauge in right forearm, using aseptic technique. ca1 14:01 Radiology exam delayed due to eeg started at bedside, will take an hour. per Anand wait sj till eeg is done first then can have ct scan. 14:02 EKG done, by sample prep technician. reviewed by Anand QIU. sm3 14:08 XRAY Chest (1 view) In Process Unspecified. EDMS 15:01 EEG was performed. at1 15:11 CT Head Brain wo Cont In Process Unspecified. EDMS 16:33 Erica Craig MD is Hospitalizing Provider. m 18:54 Patient admitted, IV remains in place. ca1 Administered Medications: 15:52 Drug: Ativan 1 mg Route: IVP; Site: right forearm; ca1 17:03 Follow up: Response: No adverse reaction; Marked relief of symptoms ca1 16:49 Drug: Tylenol 650 mg Route: PO; ca1 17:03 Follow up: Response: No adverse reaction; Pain is decreased ca1 Outcome: 16:33 Decision to Hospitalize by Provider. jmm 18:54 Admitted to Tele accompanied by tech, via stretcher, room 404, with chart, Report ca1 called to Chelsey Earl RN 18:54 Condition: stable 18:54 Instructed on the need for admit. 18:55 Patient left the ED. ca1 Signatures: Dispatcher [employer] Alley Banerjee RN RN Anand Luque PA PA jmm Jones, Susan sj Gonzales, Amanda, zinc furnace charger EKG Tat1 Liset Jade rg4 Shayla Ballard sm3 Cam Vasquez, RN RN rv Josie Miller RN RN ca1 Corrections: (The following items were deleted from the chart) 13:44 13:39 General: Reports shaking all over. It comes and goes. Gets a few minutes of ca1 relief then shakes again. Mostly seen on lower extremities at this time but reports other body parts as well such as face and upper extremities ca1
[2018-11-22] MEDS ORDERED: ACETAMINOPHEN 325 MG TABLET ONE (16:45)
--- NOTE | 2018-11-22 17:38 | P.HP ---
Certification for Inpatient Patient admitted to: Observation With expected LOS: >2 Midnights Practitioner: I am a practitioner with admitting privileges, knowledge of patient current condition, hospital course, and medical plan of care. Services: Services provided to patient in accordance with Admission requirements found in Title 42 Section 412.3 of the Code of Federal Regulations Patient History Date of Service: 11/22/18 Reason for admission: Seizure History of Present Illness: Patient is a 63-year-old female with past medical history of hypertension diabetes hyperlipidemia [place] artery disease congestive heart failure, chronic kidney disease who was recently admitted at [facility] [place], [place] for seizure episodes. Patient was evaluated by neurology and cardiology EEG was done did not show any abnormalities however EEG was not done during an acute episode. Patient's stay in the hospital for 3 days was discharged 2 days ago. Was not started on any anticonvulsants. It was felt that her seizure was precipitated by her UTI. Patient was in her usual state of health until this afternoon while eating lunch patient had sudden onset of her seizure episode. Seizure his atypical with no loss of consciousness. No postictal state no tongue rolling. Patient has shaking of her legs and in her arms. The episode lasted for 20 min. Patient had recurrence of the episode on off for the past 4 hr therefore was brought into the ER. Her symptoms are moderate progressively worsening and recurrent. Patient was given Ativan in the ER which improved her symptoms. EGD was done during her symptoms also. Dr. Collins with neurology was consulted by the ER. He stated he will consult on the case. When seen in the ER the patient was awake alert oriented x3 in some mild distress accompanied by her daughter. Allergies Penicillins Allergy (Severe, Verified 07/17/18 14:45) Anaphylaxis meperidine [From Demerol] Adverse Reaction (Verified 07/18/18 12:03) Anaphylaxis morphine Adverse Reaction (Verified 07/18/18 12:03) Anaphylaxis Home medications list reviewed: Yes Home Medications: Atorvastatin Calcium [Lipitor*] 20 mg PO BEDTIME tab 03/02/18 Bisacodyl [Dulcolax*] 10 mg OK DAILY PRN supp 03/02/18 Cholecalciferol (Vitamin D3) [Vitamin D 5,000 IU Cap*] 5,000 unit PO DAILY cap 03/02/18 Clopidogrel Bisulfate [Plavix*] 75 mg PO DAILY tablet 03/02/18 Cyanocobalamin [Vitamin B-12*] 1,000 mcg PO DAILY tab 03/02/18 Docusate/Senna [Senokot-S*] 2 tab PO BEDTIME tab 03/02/18 Iron/FA/Vit B-Com W/C [Hemocyte Plus*] 1 tab PO DAILY WITH BREAKFAST tab Lactulose [Cephulac*] 30 ml PO BID PRN ucup 03/02/18 Memantine HCl [Namenda*] 10 mg PO BID tablet 03/02/18 PARoxetine HCl [Paxil*] 40 mg PO DAILY tab 03/02/18 Polyethyl Gly 3350 [Glycolax*] 17 gm PO DAILY udbot 03/02/18 glipiZIDE [Glucotrol*] 2.5 mg PO DAILY WITH BREAKFAST tab 03/02/18 Sodium Bicarbonate 325 mg PO BID 07/17/18 Tofacitinib Citrate [Xeljanz] 5 mg PO DAILY 07/17/18 Famotidine [Pepcid*] 20 mg PO DAILY #30 tab 07/19/18 Hydralazine [Apresoline*] 25 mg PO BID #60 tab 07/19/18 - Past Medical/Surgical History Diabetic: Yes -: Depression with anxiety -: Hyperlipidemia -: Hypertension -: Diabetes mellitus type 2 -: CAD -: Diastolic CHF -: Dementia -: Chronic renal disease, stage IV -: Anemia of chronic disease -: Chronic back pain -: Left leg length discrepancy -: stents x2 -: kidney stones -: left leg -: left foot -: left wrist Psychosocial/ Personal History: Patient currently lives with her daughter. She has 2 children. She is single. - Family History Father -: Diabetes, Other (see notes) (Dementia) Mother -: Other (see notes) (Dementia) - Social History Smoking Status: Never smoker Alcohol use: No CD- Drugs: No Caffeine use: Yes Place of Residence: Home Review of Systems 10-point ROS is otherwise unremarkable Neurological: As per HPI Physical Examination - Vital Signs Temperature: 98.8 F Blood Pressure: 158/82 Pulse: 98 Respirations: 18 Pulse Ox (%): 97 - Physical Exam General: Alert, Oriented x3, Mild distress, Obese, Other (Ill-appearing female) HEENT: Atraumatic, PERRLA, Mucous membr. moist/pink, EOMI, Sclerae nonicteric Neck: Supple Respiratory: Diminished, Crackles/rales, Other (No use of accessory muscles) Cardiovascular: No edema, Normal pulses, Regular rate/rhythm, Normal S1 S2 Gastrointestinal: Normal bowel sounds, Soft and benign, Non-distended, No tenderness Musculoskeletal: No tenderness Integumentary: No rashes, No erythema Neurological: Normal gait, Normal speech, Normal strength at 5/5 x4 extr, Normal tone, Cranial nerves 3-12 intact, Normal affect - Studies Laboratory Data (last 24 hrs) 11/22/18 14:10: PT 11.9, INR 1.01 11/22/18 14:10: WBC 3.7 L, Hgb 11.1 L, Hct 32.7 L, Plt Count 168 11/22/18 14:10: Sodium 145, Potassium 4.1, BUN 48 H, Creatinine 2.82 H, Glucose 69 L, Magnesium 2.0, Total Bilirubin 0.3, AST 14 L, ALT 15, Alkaline Phosphatase 46 Imagings Data: Reason for Exam: seizure like activity Report Status: Signed EXAM DESCRIPTION: CT - Head Brain Wo Cont - 11/22/2018 3:08 pm CLINICAL HISTORY: Seizure-like activity COMPARISON: July 17 TECHNIQUE: Axial 5 mm thick images of the head were obtained without IV contrast. All CT scans are performed using dose optimization technique as appropriate and may include automated exposure control or mA/KV adjustment according to patient size. FINDINGS: No intracranial hemorrhage, mass, edema or shift of mid-line structures. No acute infarction changes seen. No abnormal extra-axial fluid collections. Mild atrophy and chronic ischemic changes are present. Ventricles are in proportion to volume loss. Mastoid air cells and visualized portions of the paranasal sinuses are clear. No acute bony findings. IMPRESSION: Negative non-contrast CT head examination for acute finding. Mild atrophy and chronic ischemic change matching the comparison study. Reason for Exam: CHEST PAIN Report Status: Signed EXAM DESCRIPTION: RAD - Chest Single View - 11/22/2018 2:06 pm CLINICAL HISTORY: CHEST PAIN Chest pain. COMPARISON: Chest Single View dated 07/17/2018; Abdomen 1 View (KUB) dated 2018; Chest Single View dated 02/24/2018; Chest Single View dated 02/14/2018 FINDINGS: Portable technique limits examination quality. Linear subsegmental atelectasis is present in the left mid lung. Mild interstitial pulmonary edema is seen. The heart is moderately enlarged in size. No displaced fractures. IMPRESSION: Mild CHF. Assessment and Plan - Plan Acute seizure: Atypical seizure. Responded to Ativan. Will load with Keppra. EEG has been completed. Neurology has been consulted by ER. Will place on seizure precautions and use Ativan p.r.n.. Acute on chronic congestive heart failure: Will continue with home medications. Continue diuretics. Coronary artery disease [place] artery status post stent without angina stable. Resume home medications Chronic kidney disease stage 4: Will consult nephrology. Avoid NSAIDs and monitor creatinine level Diabetes mellitus type 2 with hyperglycemia: Continue sliding-scale insulin and monitor Accu-Cheks Hypertension. Stable resume home medications as appropriate Hyperlipidemia. Continue statin Rheumatoid arthritis, on immunosuppressants. Hold immunosuppressants for now Obesity counseled - Advance Directives Does patient have a Living Will: No Does patient have a Durable POA for Healthcare: No - Code Status/Comfort Care Code Status Assessed: Yes
[2018-11-22] MEDS ORDERED: ACETAMINOPHEN 500 MG TAB PO PRN (19:21)
[2018-11-22] MEDS ORDERED: ONDANSETRON 4 MG/2 ML VIAL IV PRN (19:21)
[2018-11-22] MEDS: LORazepam 2 MG/ML VIAL IV PRN (20:40)
[2018-11-22] MEDS: D5 0.45 NS 1,000 ML IV SCH (20:41)
[2018-11-22] MEDS: INSULIN -REGULAR HUMAN 50 UNIT/0.5 ML ML SQ SCH (21:00)
[2018-11-22 23:37] VITALS: BMI 28.9
[2018-11-23 05:34] LABS: Basophils % 0.9 % (0-1.3); Hematocrit 29.4 % (36.0-45.0); Lymphocytes % 27.7 % (15.3-44.8); MPV 9.1 fL (7.6-11.3); RBC Red Blood Cell Count 3.03 M/uL (3.86-4.86)
[2018-11-23 05:59] LABS: Albumin 3.1 g/dL (3.4-5.0); Bilirubin Total 0.3 mg/dL (0.2-1.0); Magnesium 2.1 mg/dL (1.8-2.4); Phosphorus 5.8 mg/dL (2.5-4.9); Potassium 4.5 mmol/L (3.5-5.1); Protein, Total 6.8 g/dL (6.4-8.2)
[2018-11-23] MEDS: D5 0.45 NS 1,000 ML IV SCH (09:08)
[2018-11-23] MEDS: INSULIN -REGULAR HUMAN 50 UNIT/0.5 ML ML SQ SCH ×3 (09:09→16:30)
--- NOTE | 2018-11-23 09:35 | EEG ---
CHART: [id number] TEST ID#: [id number] DATE OF STUDY: 11/22/2018 THE EEG WAS RECORDED PORTABLE IN THE EMERGENCY ROOM ON A 17 CHANNEL MACHINE. ELECTRODES WERE APPLIED IN THE USUAL MANNER USING THE INTERNATIONAL 10-20 SYSTEM. THE WAKING BACKGROUND RHYTHM IN THIS RECORD CONSISTS OF FAIRLY WELL DEVELOPED AND FAIRLY WELL ORGANIZED WAVES OF 10.5 HZ., MAXIMAL IN THE POSTERIOR HEAD REGIONS WHICH ATTENUATE NORMALLY WITH EYE OPENING. LOW-VOLTAGE 18-22 HZ ACTIVITY IS EXPRESSED IN THE FRONTAL REGIONS. THE PATIENT HAD TYPICAL ARM AND LEG SHAKING EPISODES DURING THE RECORDING WHICH WERE NOT ASSOCIATED WITH EPILEPTIFORM OR ABNORMAL EEG ACTIVITY. THERE ARE NO FOCAL OR LATERALIZING FEATURES. NO EPILEPTIFORM ACTIVITY APPEARS. SLEEP DID NOT OCCUR. HYPERVENTILATION WAS NOT PERFORMED. PHOTIC STIMULATION PRODUCED POOR DRIVING BILATERALLY. IMPRESSION: THE EVENTS CAPTURED DURING THIS STUDY WERE NON-EPILEPTIC SINCE NO EPILEPTIFORM ACTIVITY OCCURRED DURING THE EPISODES. SUCH EVENTS DO NOT TYPICALLY RESPOND TO ANTIEPILEPTIC MEDICATIONS.
[2018-11-23] MEDS ORDERED: TRAMADOL HCL 50 MG TAB PO PRN (10:58)
[2018-11-23] MEDS ORDERED: DOCUSATE NA 100 MG CAP PO PRN (10:58)
[2018-11-23 11:32] VITALS: O2SAT 97
[2018-11-23] MEDS: LORazepam 2 MG/ML VIAL IV PRN (12:29)
[2018-11-23] MEDS ORDERED: MEMANTINE HCL 10 MG TABLET PO SCH (12:30)
[2018-11-23] MEDS ORDERED: HYDRALAZINE HCL 25 MG TABLET PO SCH (14:00)
--- NOTE | 2018-11-23 16:54 | P.DS ---
Admission Date: 11/22/18 Discharge Date: 11/23/18 Disposition: ROUTINE DISCHARGE Discharge Condition: FAIR Reason for Admission: Seizure Consultations: Neurology Dr. Collins Procedures: EEG showed no epileptiform activity Brief History of Present Illness: Patient is a 63-year-old female with past medical history of hypertension diabetes hyperlipidemia [place] artery disease congestive heart failure, chronic kidney disease who was recently admitted at [facility] for seizure episodes. Patient was evaluated by neurology and cardiology EEG was done did not show any abnormalities however EEG was not done during an acute episode. Patient's stay in the hospital for 3 days was discharged 2 days ago. Was not started on any anticonvulsants. It was felt that her seizure was precipitated by her UTI. Patient was in her usual state of health until this afternoon while eating lunch patient had sudden onset of her seizure episode. Seizure his atypical with no loss of consciousness. No postictal state no tongue rolling. Patient has shaking of her legs and in her arms. The episode lasted for 20 min. Patient had recurrence of the episode on off for the past 4 hr therefore was brought into the ER. Her symptoms are moderate progressively worsening and recurrent. Patient was given Ativan in the ER which improved her symptoms. EGD was done during her symptoms also. Dr. Collins with neurology was consulted by the ER. He stated he will consult on the case. When seen in the ER the patient was awake alert oriented x3 in some mild distress accompanied by her daughter. Hospital Course: Patient is a 63-year-old female with complex medical history including congestive heart failure, heart disease, kidney disease diabetes hypertension hyperlipidemia of rheumatoid arthritis, on immunosuppressants who was recently discharged from [facility] for possible seizure episode. Patient was found to have a normal EEG was cleared by cardiology and neurology. Patient had episodes of tremors of her lower extremities and was admitted to the hospital. EEG was done during this episode there is no epileptiform activity seen. Neurology was consulted this was felt to be pseudoseizures. Patient was started on Topamax. Family was educated regarding pseudoseizures. Patient will need to follow up with neurologist at [facility]. Patient had mild elevation of her troponin which was likely due to demand mismatch. Patient did not have any chest pain. No NSTEMI. Patient worked well with PT was able to ambulate without difficulty. Daughter requested transfer to [facility] however that is a lateral transfer as neurology has already seen patient. Does not need higher level of care as neurology was available. Additionally fax lines are down. Recommend outpatient follow up with psychiatry for pseudo seizure Discharge diagnosis Pseudo seizure Acute on chronic congestive heart failure: Coronary artery disease [place] artery status post stent without angina stable. Chronic kidney disease stage 4: Stable Diabetes mellitus type 2 with hyperglycemia: Stable Hypertension. Stable Hyperlipidemia. statin Rheumatoid arthritis, on immunosuppressants. Obesity Vital Signs/Physical Exam: Temp Pulse Resp BP Pulse Ox 98.6 F 60 18 183/73 H 98 11/23/18 12:00 11/23/18 12:00 11/23/18 12:00 11/23/18 12:00 11/23/18 12:00 General: Alert, In no apparent distress, Oriented x3, Obese HEENT: Atraumatic, PERRLA, EOMI Neck: Supple, JVD not distended Respiratory: Clear to auscultation bilaterally, Normal air movement Cardiovascular: Regular rate/rhythm, Normal S1 S2 Gastrointestinal: Normal bowel sounds, Soft and benign, Non-distended, No tenderness Musculoskeletal: No tenderness Integumentary: No rashes Neurological: Normal speech, Normal strength at 5/5 x4 extr, Normal tone, Normal affect Laboratory Data at Discharge: WBC 3.6 K/uL (4.3-10.9) L 11/23/18 05:10 Hgb 10.1 g/dL (12.0-15.0) L 11/23/18 05:10 Hct 29.4 % (36.0-45.0) L 11/23/18 05:10 Plt Count 135 K/uL (152-406) L 11/23/18 05:10 PT 11.9 SECONDS (9.5-12.5) 11/22/18 14:10 INR 1.01 11/22/18 14:10 Sodium 145 mmol/L (136-145) 11/23/18 05:10 Potassium 4.5 mmol/L (3.5-5.1) 11/23/18 05:10 BUN 54 mg/dL (7-18) H 11/23/18 05:10 Creatinine 2.73 mg/dL (0.55-1.3) H 11/23/18 05:10 Glucose 259 mg/dL (74-106) H 11/23/18 05:10 Phosphorus 5.8 mg/dL (2.5-4.9) H 11/23/18 05:10 Magnesium 2.1 mg/dL (1.8-2.4) 11/23/18 05:10 Total Bilirubin 0.3 mg/dL (0.2-1.0) 11/23/18 05:10 AST 13 U/L (15-37) L 11/23/18 05:10 ALT 15 U/L (12-78) 11/23/18 05:10 Alkaline Phosphatase 48 U/L (45-117) 11/23/18 05:10 Home Medications: Atorvastatin Calcium [Lipitor*] 20 mg PO DAILY 11/22/18 Calcitriol 0.5 mcg PO DAILY 11/22/18 Cholecalciferol (Vitamin D3) [Vitamin D 1000 Iu Tab*] 5,000 unit PO DAILY Ferrous Sulfate [Ferrous Sulfate*] 1 tab PO DAILY 11/22/18 Folic Acid 0.4 mg PO DAILY 11/22/18 Furosemide 10 mg PO DAILY 11/22/18 Hydralazine HCl 25 mg PO TID 11/22/18 Memantine HCl 10 mg PO BID 11/22/18 Na Bicarb Tab [Sodium Bicarb 325 MG Tab*] 325 mg PO BID 11/22/18 PARoxetine HCl [Paxil*] 40 mg PO DAILY 11/22/18 Tofacitinib Citrate [Xeljanz] 5 mg PO DAILY 11/22/18 glipiZIDE [Glucotrol*] 2.5 mg PO DAILY 11/22/18 levoFLOXacin [Levofloxacin] 500 mg PO DAILY 11/22/18 Aspirin 81 mg PO DAILY 11/23/18 Clopidogrel Bisulfate [Plavix*] 75 mg PO DAILY 11/23/18 Cyanocobalamin (Vitamin B-12) [B-12] 1,000 mcg PO DAILY 11/23/18 Docusate [Colace Cap*] 100 mg PO BIDP PRN 11/23/18 Lisinopril [Prinivil*] 5 mg PO DAILY 11/23/18 Topiramate [Topamax] 25 mg PO DAILY #30 tab 11/23/18 Tramadol HCl [Ultram] 50 mg PO TIDP PRN 11/23/18 New Medications: Topiramate [Topamax] 25 mg PO DAILY #30 tab Patient Discharge Instructions: f/up w PCP in 2-3 days. f/up w neurologist at [facility] in 1 week. Return to ER for worsening condition Diet: ADA Activity: Fall precautions
[2018-11-23 17:09] VITALS: BP 162/72; TEMP 97.8
--- NOTE | 2018-11-23 19:05 | P.CNS ---
Date of Consult: 11/23/18 Reason for Consult: CKD Requesting Physician: Erica Craig Chief Complaint: Seizure History of Present Illness: Patient is a 63-year-old female with past medical history of hypertension diabetes hyperlipidemia [place] artery disease congestive heart failure, chronic kidney disease who was recently admitted at [facility] for seizure episodes. Patient was evaluated by neurology and cardiology EEG was done did not show any abnormalities however EEG was not done during an acute episode. Patient's stay in the hospital for 3 days was discharged 2 days ago. Was not started on any anticonvulsants. It was felt that her seizure was precipitated by her UTI. Patient was in her usual state of health until this afternoon while eating lunch patient had sudden onset of her seizure episode. Seizure his atypical with no loss of consciousness. No postictal state no tongue rolling. Patient has shaking of her legs and in her arms. The episode lasted for 20 min. Patient had recurrence of the episode on off for the past 4 hr therefore was brought into the ER. Her symptoms are moderate progressively worsening and recurrent. Patient was given Ativan in the ER which improved her symptoms. EGD was done during her symptoms also. Dr. Collins with neurology was consulted by the ER. He stated he will consult on the case. 13:29 Presenting complaint: Patient states: Started shaking to all extremities about an hour sv ago, recently was admitted in [facility] for it this week and could not find anything wrong. Transition of care: patient was not received from another setting of care. Onset of symptoms was November 22, 2018. Risk Assessment: Do you want to hurt yourself or someone else? Patient reports no desire to harm self or others. Care prior to arrival: None. Allergies Penicillins Allergy (Severe, Verified 11/22/18 20:07) Anaphylaxis meperidine [From Demerol] Adverse Reaction (Verified 11/22/18 20:07) Anaphylaxis morphine Adverse Reaction (Verified 11/22/18 20:07) Anaphylaxis Home medications list reviewed: Yes Home Medications: Atorvastatin Calcium [Lipitor*] 20 mg PO DAILY 11/22/18 Calcitriol 0.5 mcg PO DAILY 11/22/18 Cholecalciferol (Vitamin D3) [Vitamin D 1000 Iu Tab*] 5,000 unit PO DAILY Ferrous Sulfate [Ferrous Sulfate*] 1 tab PO DAILY 11/22/18 Folic Acid 0.4 mg PO DAILY 11/22/18 Furosemide 10 mg PO DAILY 11/22/18 Hydralazine HCl 25 mg PO TID 11/22/18 Memantine HCl 10 mg PO BID 11/22/18 Na Bicarb Tab [Sodium Bicarb 325 MG Tab*] 325 mg PO BID 11/22/18 PARoxetine HCl [Paxil*] 40 mg PO DAILY 11/22/18 Tofacitinib Citrate [Xeljanz] 5 mg PO DAILY 11/22/18 glipiZIDE [Glucotrol*] 2.5 mg PO DAILY 11/22/18 levoFLOXacin [Levofloxacin] 500 mg PO DAILY 11/22/18 Aspirin 81 mg PO DAILY 11/23/18 Clopidogrel Bisulfate [Plavix*] 75 mg PO DAILY 11/23/18 Cyanocobalamin (Vitamin B-12) [B-12] 1,000 mcg PO DAILY 11/23/18 Docusate [Colace Cap*] 100 mg PO BIDP PRN 11/23/18 Lisinopril [Prinivil*] 5 mg PO DAILY 11/23/18 Topiramate [Topamax] 25 mg PO DAILY #30 tab 11/23/18 Tramadol HCl [Ultram] 50 mg PO TIDP PRN 11/23/18 - Past Medical/Surgical History Diabetic: Yes -: Depression with anxiety -: Hyperlipidemia -: Hypertension -: Diabetes mellitus type 2 -: CAD -: Diastolic CHF -: Dementia -: Chronic renal disease, stage IV -: Anemia of chronic disease -: Chronic back pain -: Left leg length discrepancy -: stents x2 -: kidney stones -: left leg -: left foot -: left wrist Psychosocial/ Personal History: Patient currently lives with her daughter. She has 2 children. She is single. - Family History Father Medical History: Diabetes, Other (see notes) Mother Medical History: Other (see notes) - Social History Smoking Status: Unknown if ever smoked Alcohol use: No CD- Drugs: No Caffeine use: No Place of Residence: Home Review of Systems 10-point ROS is otherwise unremarkable General: Malaise Neurological: Seizures Physical Examination Temp Pulse Resp BP Pulse Ox 97.8 F 74 18 162/72 H 97 11/23/18 16:00 11/23/18 16:00 11/23/18 16:00 11/23/18 16:00 11/23/18 16:00 General: In no apparent distress, Cooperative HEENT: Atraumatic Neck: Supple Respiratory: Clear to auscultation bilaterally Cardiovascular: No edema, Regular rate/rhythm Gastrointestinal: Soft and benign, Non-distended Musculoskeletal: No clubbing, No contractures Integumentary: No rashes, No cyanosis Neurological: Normal speech Blood work reviewed in the chart. BUN 54; Cr 2.73 Imagings Data: EXAM DESCRIPTION: RAD - Chest Single View - 11/22/2018 2:06 pm CLINICAL HISTORY: CHEST PAIN Chest pain. COMPARISON: Chest Single View dated 07/17/2018; Abdomen 1 View (KUB) dated 2018; Chest Single View dated 02/24/2018; Chest Single View dated 02/14/2018 FINDINGS: Portable technique limits examination quality. Linear subsegmental atelectasis is present in the left mid lung. Mild interstitial pulmonary edema is seen. The heart is moderately enlarged in size. No displaced fractures. IMPRESSION: Mild CHF. EXAM DESCRIPTION: CT - Head Brain Wo Cont - 11/22/2018 3:08 pm CLINICAL HISTORY: Seizure-like activity COMPARISON: July 17 TECHNIQUE: Axial 5 mm thick images of the head were obtained without IV contrast. All CT scans are performed using dose optimization technique as appropriate and may include automated exposure control or mA/KV adjustment according to patient size. FINDINGS: No intracranial hemorrhage, mass, edema or shift of mid-line structures. No acute infarction changes seen. No abnormal extra-axial fluid collections. Mild atrophy and chronic ischemic changes are present. Ventricles are in proportion to volume loss. Mastoid air cells and visualized portions of the paranasal sinuses are clear. No acute bony findings. IMPRESSION: Negative non-contrast CT head examination for acute finding. Mild atrophy and chronic ischemic change matching the comparison study. Conclusions/Impression: A/ ZOILA, improving. CKD IV with proteinuria. Diastolic CHF, chronic. HTN with CKD/ CHF. DM II with CKD. Anemia in chronic illness. Tremors/ shakes suspicious for pseudoseizure. P/ Continue current POC and Medications. Restart home medications as indicated. Follow up with neurology. No NSAIDs. AM labs as needed. Daily weight. Case reviewed with Dr. Craig. Thank you kindly for the consultation.
--- NOTE | 2018-11-23 19:07 | EKG ---
Test Date: 2018-11-22 Test Time: 13:51:38 Insulation Installer: DAE MEASUREMENT RESULTS: Intervals: Rate: 91 NH: 164 QRSD: 158 QT: 416 QTc: 511 [place]: P: 77 NH: 164 QRS: 68 T: 253 INTERPRETIVE STATEMENTS: Normal sinus rhythm Left bundle branch block Abnormal ECG Compared to ECG 07/17/2018 02:49:51 Sinus tachycardia no longer present Electronically Signed On 11-22-18 17:50:42 CDT by Toi Johns
[2018-11-23] MEDS ORDERED: SODIUM BICARB 325 MG TAB PO SCH (21:00)
[2018-11-23] MEDS ORDERED: MEMANTINE HCL 10 MG PO SCH (21:00)
[2018-11-23] MEDS ORDERED: ATORVASTATIN 20 MG TAB PO SCH (21:00)
[2018-11-24] MEDS ORDERED: FUROSEMIDE 20 MG TABLET PO SCH (09:00)
[2018-11-24] MEDS ORDERED: PARoxetine HCl 10 MG TAB PO SCH (09:00)
[2018-11-24] MEDS ORDERED: CALCITROL 0.25 MCG CAP PO SCH (09:00)
[2018-11-24] MEDS ORDERED: LISINOPRIL 5 MG TAB PO SCH (09:00)
[2018-11-24] MEDS ORDERED: ASPIRIN 81 MG CHEWABLE TABLET PO SCH (09:00)
[2018-11-24] MEDS ORDERED: TOFACITINIB CITRATE 5 MG PO SCH (09:00)
[2018-11-24] MEDS ORDERED: FERROUS SULFATE 325 MG TAB PO SCH (09:00)
[2018-11-24] MEDS ORDERED: glipiZIDE 5 MG TAB PO SCH (09:00)
[2018-11-24] MEDS ORDERED: CLOPIDOGREL 75 MG TABLET PO SCH (09:00)
== END 2018-11-23 18:43 | disposition home health service (06) ==
LOC: ER 13:12 → ERHOLD 16:55 → 4TH 18:42
PROVIDERS: ADMIT Family Medicine; ATTEND Family Medicine
DX: R56.9 Unspecified convulsions (principal); I13.0 Hypertensive heart and chronic kidney disease with heart failure and stage 1 through stage 4 chronic kidney disease, or unspecified chronic kidney disease; I50.33 Acute on chronic diastolic (congestive) heart failure; N18.4 Chronic kidney disease, stage 4 (severe); E11.22 Type 2 diabetes mellitus with diabetic chronic kidney disease; E11.65 Type 2 diabetes mellitus with hyperglycemia; I25.10 Atherosclerotic heart disease of native coronary artery without angina pectoris; E78.5 Hyperlipidemia, unspecified; M06.9 Rheumatoid arthritis, unspecified; E66.9 Obesity, unspecified; Z68.29 Body mass index [BMI] 29.0-29.9, adult; Z95.5 Presence of coronary angioplasty implant and graft
CPT/HCPCS: 95816; 93005; 85025 ×2; 80048; 36415; 83735 ×2; 82550; 84100; 85610; 82962 ×5; 80076; 81003; 84484; 80053; 83880; 70450; 71045; 97112; 97116; 97161; 94760 ×2; 96374; 99285; J7799 ×2; G0378 ×3

== ENCOUNTER 2019-12-28 23:30 | Emergency (ER) | payer OTHER ==
--- OUTSIDE RECORDS SUMMARY | 2019-12-28 23:34 | XMS REPORT | Summary of Care ---
:1955 Author Organization [facility] - Health Address [address] [place] [id number] Care Team Providers Name Role Phone Pcp, Does Not Have A Primary Care Provider Lisa Darling DO [facility] Reason for Referral Radiology Services (STAT) Status Reason Specialty Diagnoses / Referred By Referred To Procedures Contact Contact New Request Diagnostic Diagnoses Cough Sore throat Cindy Galvan, Radiology Procedures Chest 2 Views [facility] [address] [place] [id number] Reason for Visit Reason Comments Cough Auth/Cert Status Reason Specialty Diagnoses / Referred By Referred To Procedures Contact Contact Emergency [facility] [address] [phone] Fax: Encounter Details Date Type Department Care Team Description 11/16/2019 Emergency [facility]Emer[facility] Cindy Galvan , [facility] Cough (Primary Dx); Department [address] [place] [address] Sore throat [address] [place] [address] [phone] [address] [phone] Allergies Active Allergy Reactions Severity Noted Date Comments Penicillins Anaphylaxis 11/09/2016 documented as of this encounter (statuses as of 11/16/2019) Medications Medication Sig Dispensed Refills Start Date End Date Status benzonatate (TESSALON Take 1 capsule by 15 capsule 0 0 Active PERLES) 100 mg mouth every 6 capsuleIndications: (six) hours as Cough, Sore throat needed for Cough for up to 15 doses. documented as of this encounter (statuses as of 11/16/2019) Active Problems No known active problemsdocumented as of this encounter (statuses as of 11/16/2019) Social History Tobacco Use Types Packs/Day Years Used Date Never Assessed Sex Assigned at Date Recorded Not on file COVID-19 Exposure Response Date Recorded In the last month, have you been in contact with No / Unsure 11/16/2019 3:53 PM CDT someone who was confirmed or suspected to have Coronavirus / COVID-19? documented as of this encounter Last Filed Vital Signs Vital Sign Reading Time Taken Comments Blood Pressure 150/57 11/16/2019 3:55 PM CDT Pulse 69 11/16/2019 3:55 PM CDT Temperature 37.6 C (99.7 F) 11/16/2019 3:55 PM CDT Respiratory Rate 16 11/16/2019 3:55 PM CDT Oxygen Saturation 95% 11/16/2019 3:55 PM CDT Inhaled Oxygen Concentration - - Weight 83 kg (183 lb) 11/16/2019 3:55 PM CDT Height - - Body Mass Index 30.45 11/09/2016 5:00 PM CDT documented in this encounter Discharge Instructions Cindy Briggs FNP - 11/16/2019Take medications as directed Follow up with your PCP in 2 days if symptoms do not improve Return for any concerns or worsening symptoms AttachmentsThe following attachments cannot be sent through Care Everywhere.Sore Throat, When You Have a (German)URI, Viral, No Abx (Adult) (German)Respiratory Infections, Preventing Common (German)documented in this encounter ED Notes Cleve Bustos RN - 11/16/2019 3:54 PM CDTPatient reports that she was sent from dialysis to get a chest xray because she has a cough and a sore throat. documented in this encounter Miscellaneous Notes ED Nurse Note - Chelita Hernandez RN - 11/16/2019 5:29 PM CDTPt given printed and verbal discharge instructions regarding cough Prescriptions provided Benzonatate Pt verbalized understanding of instructions, pt awake alert oriented, resp reg unlabored, skin w/d, color appropriate for race, moves all ext well,pt encouraged to follow up with pcp Advised to seek medical attention for new/prolonged/worsening of symptoms, No adverse reaction to meds given in ER noted upon discharge Awake, alert oriented, resp reg unlabored, skin w/d, pt leaving via wheel chair in no apparent distress, documented in this encounter Plan of Treatment Name Type Priority Associated Diagnoses Date/Ti me THROAT CULTURE LAB STAT Cough 11/16/2019 4:08 PM CDT Sore throat Name Type Priority Associated Diagnoses Order S chedule THROAT CULTURE LAB Routine Cough ONCE for 1 Occurrences starting Sore throat 11/16/2019 unti l 11/16/2019 Health Maintenance Due Date Last Done Comments HEPATITIS C (HCV) SCREEN 1955 Depression Screening 1966 DTaP,Tdap,and Td Vaccines (1 - Tdap) 1973 Breast Cancer Screening (MAMMOGRAM) 1994 COLON CANCER SCREENING ANNUAL FIT/FOBT 2004 COLON CANCER SCREENING FIT DNA EVERY 3 YEARS 2004 COLON CANCER SCREENING SIGMOIDOSCOPY EVERY 5 YEARS 2004 COLONOSCOPY 2004 Colorectal Cancer Screening 2004 Zoster Recombinant Vaccine (SHINGRIX) (1 of 2) 2004 Medicare Wellness Visit 09/24/2019 Osteoporosis Screening 09/24/2019 PNEUMOCOCCAL VACCINES 65+ (1 of 1 - PPSV23) 09/24/2019 INFLUENZA VACCINE (#1) 2019 documented as of this encounter Procedures Procedure Name Priority Date/Time Associated Diagnosis Comme nts XR CHEST 2 VW STAT 11/16/2019 4:20 PM Cough Results for this CDT Sore throat procedure are i n the results section. RAPID STREP SCREEN STAT 11/16/2019 4:08 PM Cough Results for this FOR GROUP A CDT Sore throat procedure are i n the results section. documented in this encounter Results Chest 2 Views (11/16/2019 4:20 PM CDT) Specimen Narrative Performed At CHEST ONE VIEW PACS/VR/DOSE HISTORY: Cough TECHNIQUE: AP view of the chest is obt ained. COMPARISON: None FINDINGS: Prominence of vascularity and interstitial lung markings is noted. Heart size is enlarged. Small left pleural effusion is present. A dialysis catheter is noted terminating in the right atrium. Pacemaker leads are seen superimposed over the right atrium and right ventricle and coronary sinus. CONCLUSIONS: 1. Mild pulmonary edema and small left pleural effusio n Procedure Note [facility], Radiant Results Inft User - 2019 4:24 PM CDT CHEST ONE VIEW HISTORY: Cough TECHNIQUE: AP view of the chest is obta ined. COMPARISON: None FINDINGS: Prominence of vascularity and interstitial lung markings is noted. Heart size is enlarged. Small left pleural effusion is present. A dialysis catheter is noted terminating in the right atrium. Pacemaker leads are seen superimposed over the rig ht atrium and right ventricle and coronary sinus. CONCLUSIONS: 1. Mild pulmonary edema and small left p leural effusion Performing Organization Address City/[facility] Phone Number PACS/VR/DOSE RAPID STREP SCREEN FOR GROUP A (11/16/2019 4:08 PM CDT) Pathologist Sig nature Streptococcus pyogenes Negative Negative [facility] (group A) antigen [facility] Specimen Swab - THROAT Performing Organization Address City/[facility]/Zipcode Phone Number [facility] CLIA: [id number] [place] [address] documented in this encounter Visit Diagnoses Diagnosis Cough - Primary Sore throat Acute pharyngitis documented in this encounter Insurance Payer Benefit Plan / Subscriber ID Effective Dates Phone Addre ss Type Group MEDICARE MEDICARE PART [id number] 2012-Presen [phone] [address] Medicare A & B t 2 [id number] [place] [id number] [facility] MEDICAID OF [id number] 2013-Presen [phone] [address] Medicaid [place] 0 [id number] [place] [address] documented as of this encounter
--- OUTSIDE RECORDS SUMMARY | 2019-12-28 23:34 | XMS REPORT | Clinical Summary ---
:1955 Author Organization [facility] Address [address] [place] [address] Care Team Providers Name Role Phone Mandy Plaza MD Primary Care Provider Allergies Active Allergy Reactions Severity Noted Date Comments Meperidine Other (See Comments) 11/23/2018 She bec omes lethargic and unresponsive fo r days Gabapentin Other (See Comments) 07/25/2019 Knocks me off Morphine Other (See Comments) 11/23/2018 She bec omes lethargic and unresponsive fo r days Penicillins Anaphylaxis High 10/05/2015 Medications Medication Sig Dispensed Refills Start End Date Status Date cyanocobalamin Take 1,000 mcg 0 Active 1000 MCG tablet by mouth daily. folic acid Take 400 mcg by 0 Act ibis (FOLVITE) 400 MCG mouth daily. tablet memantine Take 10 mg by 0 Active (NAMENDA) 10 MG mouth 2 (two) tablet times a day. nitroglycerin Place 0.4 mg 0 Act ibis (NITROSTAT) 0.4 MG under the tongue 8 SL tablet as needed. PARoxetine (PAXIL) Take 40 mg by 0 Active 40 MG tablet mouth every 8 morning. XELJANZ 5 mg Take 5 mg by 0 Acti ve tablet mouth daily. 8 calcitriol Take 0.5 mcg by 0 Act ibis (ROCALTROL) 0.5 mouth daily. MCG capsule acetaminophen Take 650 mg by 0 A ctive (TYLENOL) 325 MG mouth every 6 tablet (six) hours as needed for mild pain or fever. hydrALAZINE Take 25 mg by 0 Acti ve (APRESOLINE) 25 MG mouth 2 (two) tablet times a day. LORAZepam (ATIVAN) Take 0.5 mg by 0 Active 0.5 MG tablet mouth every 6 (six) hours as needed (tremors). pen needle, Inject daily 100 each 1 Activ e diabetic (PEN 0 NEEDLE) 31 gauge x 5/16" needle aspirin 325 MG Take 325 mg by 0 Active tablet mouth daily. atorvastatin Take 40 mg by 0 Act ibis (LIPITOR) 40 mg mouth nightly. tablet cholecalciferol, Take 1,000 Units 0 Active vitamin D3, 1,000 by mouth daily. unit tablet clopidogreL Take 75 mg by 0 Acti ve (PLAVIX) 75 mg mouth daily. tablet glipiZIDE Take 10 mg by 0 Active (GLUCOTROL) 10 MG mouth daily. tablet metoprolol Take 12.5 mg by 0 Act ibis tartrate mouth 2 (two) (LOPRESSOR) 25 mg times a day. tablet insulin GLARGINE Inject 24 Units 0 Active (LANTUS) 100 under the skin unit/mL injection daily. (vial) nystatin Take 500,000 0 Active (MYCOSTATIN) Units by mouth 4 100,000 unit/mL (four) times a suspension day. Swish in mouth polyethylene Take 17 g by 0 Acti ve glycol (MIRALAX) mouth daily. 17 gram packet docusate sodium Take 100 mg by 0 Active (COLACE) 100 MG mouth 2 (two) capsule times a day. traMADoL (ULTRAM) Take 50 mg by 0 Active 50 mg mouth every 6 tabletIndications: (six) hours as acute pain needed for moderate pain .acute pain. aspirin (ECOTRIN) Take 81 mg by 0 Active 81 MG enteric mouth daily. coated tablet lisinopril 20 mg daily. 0 03/04/19 Discon tinued (PRINIVIL,ZESTRIL) daily 20 ( Med List 5 MG tablet Cleanup) exenatide Inject 2 mg 4 each 6 03/04/19 Disconti nued microspheres under the skin 6 20 (M ed List (BYDUREON) 2 every 7 days for Cleanup) mg/0.65 mL pen 90 days. injectorIndication s: Diabetes mellitus due to underlying condition with diabetic nephropathy (HCC), Acute cystitis without hematuria pen needle, Use 1 needle 100 each 3 03/04/19 Disco ntinued diabetic (BD daily 6 20 (Med Li st ULTRA-FINE LYNNE Pia nup) PEN NEEDLES) 32 gauge x 5/32" needleIndications: Type 2 diabetes, uncontrolled, with retinopathy ([facility]) lancets PRN 60 each 5 03/04/19 Discontinu ed (freestyle) 28 6 20 (Med List gauge misc Cleanup) glipiZIDE Take 2.5 mg by 0 03/04/19 Disco ntinued (GLUCOTROL) 5 MG mouth daily with 8 20 (Med List tablet breakfast. Cleanup) clopidogrel Take 1 tablet 30 tablet 11 01/29/20 Expi red (PLAVIX) 75 mg (75 mg total) by 8 19 tablet mouth daily. atorvastatin Take 1 tablet 30 tablet 11 01/28/20 Exp ired (LIPITOR) 20 MG (20 mg total) by 8 19 tablet mouth nightly. Default OP ins ferrous sulfate Take 325 mg by 0 03/04/19 Discontinued 325 (65 FE) MG mouth daily with 20 (Med List tablet breakfast. Cleanup) traMADol (ULTRAM) Take 50 mg by 0 07/26/19 Discontinued 50 mg tablet mouth 3 (three) 20 ( Stop Taking at times a day as Disch arge) needed for moderate pain. Not taking cholecalciferol, Take 5,000 Units 0 Discontinued vitamin D3, by mouth daily. 20 (M ed List (VITAMIN D3) 1,000 C leanup) unit tablet furosemide (LASIX) Take 10 mg by 0 0 Discontinued 20 mg tablet mouth daily. 20 (Sto p Taking at Discharge) hydrALAZINE Take 25 mg by 0 03/04/19 Disc ontinued (APRESOLINE) 50 MG mouth 3 (three) 20 (Med List tablet times a day. Cleanup ) sodium bicarbonate Take 325 mg by 0 Discontinued 650 mg tablet mouth 2 (two) 20 (M ed List times a day. Cleanup ) aspirin (ECOTRIN) Take 81 mg by 0 03/19/19 Discontinued 81 MG enteric mouth daily. 20 (St op Taking at coated tablet Discha rge) docusate sodium Take 100 mg by 0 06/04/20 Discontinued (COLACE) 100 MG mouth 2 (two) 20 capsule times a day. cholecalciferol, Take 5,000 Units 0 Discontinued vitamin D3, by mouth daily. 20 (S top Taking at (VITAMIN D3) 5,000 D ischarge) unit capsule glipiZIDE Take 10 mg by 0 03/19/19 Discon tinued (GLUCOTROL) 10 MG mouth daily 20 (Stop Taking at tablet before Discharge) breakfast. aspirin 325 MG Take 1 tablet 30 tablet 0 04/19/19 E xpired tablet (325 mg total) 0 20 by mouth daily for 30 days. atorvastatin Take 1 tablet 30 tablet 0 04/18/19 Exp ired (LIPITOR) 40 MG (40 mg total) by 0 20 tablet mouth nightly for 30 days. clopidogreL Take 1 tablet 30 tablet 0 04/19/19 Expi red (PLAVIX) 75 mg (75 mg total) by 0 20 tablet mouth daily for 30 days. fluconazole Take 1 tablet 2 tablet 0 03/22/19 Expi red (DIFLUCAN) 200 MG (200 mg total) 0 20 tablet by mouth daily for 2 days. insulin GLARGINE Inject 24 Units 5 pen 1 0 Discontinued (LANTUS SOLOSTAR under the skin 0 20 U-100 INSULIN) 100 daily. unit/mL injection (pen) linaGLIPtin Take 1 tablet (5 30 tablet 1 11/20/19 D iscontinued (TRADJENTA) 5 mg mg total) by 0 20 tablet mouth daily with breakfast. cholecalciferol, Take 2 tablets 60 tablet 0 04/19/19 vitamin D3, (2,000 Units 0 20 (VITAMIN D3) 1,000 total) by mouth unit tablet daily for 30 days. metoprolol Take 0.5 tablets 30 tablet 0 04/18/19 Ex pired tartrate (12.5 mg total) 0 20 (LOPRESSOR) 25 mg by mouth 2 (two) tablet times a day for 30 days. nystatin Take 5 mL by 60 mL 0 03/22/19 (MYCOSTATIN) mouth 4 (four) 0 20 100,000 unit/mL times a day for suspension 3 days. Swish in mouth polyethylene Take 17 g by 30 packet 0 04/18/19 Expi red glycol (MIRALAX) mouth daily as 0 20 17 gram packet needed for constipation for up to 30 days. insulin detemir Inject 30 Units 0 11/20/19 Discontinued U-100 (LEVEMIR) under the skin 20 100 unit/mL daily. injection furosemide (LASIX) Take 80 mg by 0 0 Discontinued 80 mg tablet mouth 2 (two) 20 times a day. traMADoL (Ultram) Take 0.5 tablets 9 tablet 0 07/28 50 mg (25 mg total) by 0 20 tabletIndications: mouth every 8 acute pain (eight) hours as needed for moderate pain for up to 3 days .acute pain. minocycline Take 1 tablet 10 tablet 0 07/31/19 Expi red (DYNACIN) 100 MG (100 mg total) 0 20 tablet by mouth 2 (two) times a day for 5 days. traMADoL (Ultram) Take 1 tablet 30 tablet 0 12/09/19 50 mg (50 mg total) by 0 20 tabletIndications: mouth every 6 acute pain (six) hours as needed for moderate pain for up to 14 days .acute pain. 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 and 07/25/2019 macular edema associated with type 2 diabetes mellitus Ischemic cardiomyopathy 07/25/2019 Obesity (BMI 30-39.9) 03/09/2019 Coronary artery disease involving [place] heart with un stable angina 03/04/2019 pectoris Overview: Added automatically from request for poncho doyle [id number] Tremor 11/20/2018 Seizure 11/19/2018 Elevated troponin 11/18/2018 ASCVD (arteriosclerotic cardiovascular disease) 2018 CAD (coronary artery disease) 08/16/2018 Atherosclerosis of [place] coronary artery of [place] he art with unstable 01/26/2018 angina pectoris NSTEMI (non-ST elevated myocardial infarction) 018 Controlled type 2 diabetes mellitus with diabetic neph ropathy, without 11/13/2017 long-term current use of insulin Acute renal failure superimposed on stage 3 chronic ki dney disease 11/13/2017 Troponin level elevated 10/29/2017 Chest pain 10/28/2017 Closed intertrochanteric fracture of left femur 2017 Closed fracture of left wrist 10/28/2017 Hip fracture 10/28/2017 Vitamin D deficiency 10/28/2017 Anemia of renal disease 05/26/2016 Anemia, macrocytic 11/28/2015 Osteoporosis with current pathological fracture 2015 Overview: Osteoporosis s/p RECLAST BMD OP - 0.569 femoral neck (-2.5), righ t hip .583 (-2.9), L1-L4 spine 0.800 (-2.2) Rheumatoid arthritis involving multiple sites with pos itive high titer 10/05/2015 anti CCP Overview: Rheumatoid arthritis with high titer CCP>250, inflammatory arthritis with synovitis Responded to steroid and partially to MT X, in remission with addition of xeljanz, Herpes gingivostomatitis in Sep 2015 10/05/2015 Last Assessment & Plan: Initial presentation in June, responded t o antiviral, currently having a new flare (September 2015) given new prescription for ten days Coronary artery disease s/p stent x 1 10/05/2015 Hypothyroidism 10/05/2015 Hypertension 10/05/2015 Diabetes mellitus due to underlying condition with miranda betic nephropathy 10/05/2015 Encounters Date Type Specialty Care Team Description 12/25/2019 Office Visit Cardiovascular Craig Barbosa MD Encounter regarding Stefano Siddiqi vascular acce ss for MD Mitzi dialysis for e nd-stage renal disease ( HCC) (Primary Dx) 12/25/2019 Travel 11/26/2019 Travel 11/26/2019 Telephone Cardiovascular Db, ESRD (end sta ge renal Mell, RN disease) ([facility]) (Primary Dx) 11/25/2019 Anesthesia Event General Surgery Zachery Sin MD Cheema, Ivelisse, FNP 11/25/2019 Surgery General Surgery Craig Barbosa MD RIGHT ARM BRACHIOBASILIC ARTERIOUVENOUS FISTULA CREATION WITH TRANSPOSITION 11/25/2019 Hospital Encounter General Surgery Craig Barbosa MD ESRD ( end stage renal disease) ([facility]) 11/20/2019 Hospital Encounter Radiology Merrick, Pre-op testing Zachery Russell MD 11/20/2019 Pre-Admission Pre-Admission Craig Barbosa MD Pre-op testin g (Primary Dx); Testing Testing ESRD (end stage renal disease) ([facility]) 11/20/2019 Office Visit Cardiovascular Craig Barbosa MD End-stage sakina al disease ([facility]) ( Primary Dx) 11/20/2019 Prep for Surgery Cardiovascular Db, ESRD (end stage renal WILLY Monte disease) ([facility]) (Primary Dx) 11/20/2019 Travel 11/12/2019 Travel 11/11/2019 Orders Only Cardiovascular Live, Arteriovenous fistula PATRICIA Mcrae for hemodialy sis in place, primary ([facility]) (Primary Dx) 11/05/2019 Travel 11/05/2019 Telephone Cardiovascular Mell Ace, WILLY 07/25/2019 Surgery Procedural Gildardo Nichols EP AICD IMPLANT SINGLE Cardiology MD Lukas DUAL BI VENT [[id number] 8059 (CPT)] 07/25/2019 Hospital Encounter General Internal Gildardo Nichols Ische christina diabetic maculopathy with severe nonproliferative retinopathy and macular edema associated with type 2 diabetes mellitus (HCC); - Medicine MD Lukas LBBB (left bund le branch block); 07/26/2019 NYHA class 3 ac knik on chronic systolic heart failure ([facility]) 07/25/2019 Travel 03/11/2019 Surgery Cardiothoracic [place], CABG, MINIMAL LY Surgery Kaiden Gonzalez MD 03/11/2019 Anesthesia Event Cardiothoracic Nikita, Cj Surgery MD Ziyad Estes Keegan, MD 03/06/2019 Orders Only Cardiovascular Ashley Johnston MA Coronary ar john disease involvi ng [place] heart wi th unstable angina pectoris, unspe cified vessel or lesio n type ([facility]) (Primary Dx) 03/06/2019 Documentation Medical Records Provider, Unknown 03/05/2019 Surgery Procedural Delio CV SELECTIVE CO RONARY Cardiology Sanjay Singh MD ANGIOGRAM [934 [id number] (CPT)] 03/04/2019 Hospital Encounter General Internal Giovani Serrato NSTE AR (non-ST elevated myocardial infarction) ([facility]) (Primary Dx); - Medicine MD Raciel Chronic kidney disease, unspecified CKD stage; 03/19/2019 Joe Jiang ASCVD (arterio sclerotic cardiovascular disease); F., MD Coronary artery disease s/p stent x 1 after 12/27/2018 Surgical History Surgery Date Site/Laterality Comments HYSTERECTOMY ANKLE SURGERY 02/20/2010 - Left Dr. Martinez marcel kathi 02/19/2011 hardware at late r date. FEMUR SURGERY 02/20/2009 - Left X 3 02/19/2010 ORIF, FRACTURE, FEMUR 11/10/2015 Leg Lower/Left Procedure: TIBIA REMOVAL OF JACOB AND 2 MED IAL ACCUTRAK SCREWS; Surgeon: Denny Martinez MD; Lo cation: [facility] 19 OR; Service: Orthopedics; La terality: Left; ORIF, FRACTURE, FEMUR, SHAFT, 11/08/2017 Thigh/Left Pr ocedure: LEFT PROXIMAL USING INTRAMEDULLARY JACOB FEMUR O RIF AND ANY INDICATED PROCED URES; Surgeon: Denny Martinez MD; Location: [facility] 19 OR; Service: Orthopedics; La terality: Left; Medical devices from this surgery are in t he Implants section . ORIF, FRACTURE, RADIUS OR 11/08/2017 Arm Lower/Left Proced ure: LEFT ORIF ULNA DISTAL RADIUS; Surgeon: Denny Martinez MD; Location: [facility] 19 OR; Service: Orthope dics; Laterality: Left ; Medical devices from this surgery are in t he Implants section . CABG, MINIMALLY INVASIVE 03/11/2019 Chest/N/A Procedu re: CABG, MINIMALLY INVASI VE; Surgeon: Kaiden Brice MD; Location: [facility]; Service: Cardiot horacic; Laterality: N/A; Medical devices from this surgery are in t he Implants section . CARDIAC ELECTROPHYSIOLOGY 07/25/2019 N/A Proced ure: EP AICD PROCEDURE IMPLANT SINGLE D UAL BI VENT; Surgeon: Gildardo Nichols MD; Location: [facility] Vehicle Safety Inspector Invasive Location; Servi ce: Cardiovascular; Laterality: N/A; Medical devices from this surgery are in t he Implants section . CARDIAC CATHETERIZATION 11/03/2017 N/A Procedur e: Cv left heart cath; Surgeon: Sanjay Kebede MD; Lo cation: [facility] Vehicle Safety Inspector Invasive Location; Servi ce: Cardiology; Lat erality: N/A; Medical devices from this surgery are in t he Implants section . CARDIAC CATHETERIZATION 11/03/2017 N/A Procedur e: Pci percutaneous car diac angioplasty; Nascimento rgeon: Sanjay bolanos MD; Location: [facility] Vehicle Safety Inspector Invasive Locatio n; Service: Cardiol ogy; Laterality: N/A; Medical devices from this surgery are in t he Implants section . CARDIAC CATHETERIZATION 01/26/2018 N/A Procedur e: Selective coronary angiogr aphy; Surgeon: Sanjay Kebede MD; Locatio n: [facility] Vehicle Safety Inspector Invasiv e Location; Servi ce: Cardiology; Lat erality: N/A; Medical devices from this surgery are in t he Implants section . CARDIAC CATHETERIZATION 01/26/2018 N/A Procedur e: PCI stent; Surgeon: Sanjay Kebede MD; Locatio n: [facility] Vehicle Safety Inspector Invasiv e Location; Servi ce: Cardiology; Lat erality: N/A; LAD & CX Medical devices from this surgery are in t he Implants section . CARDIAC CATHETERIZATION 08/21/2018 N/A Procedur e: Cv percutaneous cor onary intervention; S urgeon: Sanjay Kebede MD; Location: [facility] Vehicle Safety Inspector Invasive Locatio n; Service: Cardiol ogy; Laterality: N/A; Medical devices from this surgery are in t he Implants section . CARDIAC CATHETERIZATION 08/17/2018 N/A Procedur e: Selective coronary angiogr aphy; Surgeon: Sanjay Kebede MD; Locatio n: [facility] Vehicle Safety Inspector Invasiv e Location; Servi ce: Cardiovascular; Laterality: N/A; Medical devices from this surgery are in t he Implants section . CARDIAC CATHETERIZATION 08/17/2018 N/A Procedur e: Ivus coronary; Surgeon: Sanjay Dodd MD; Locatio n: [facility] Vehicle Safety Inspector Invasiv e Location; Servi ce: Cardiovascular; Laterality: N/A; LAD and CIRC Medical devices from this surgery are in t he Implants section . CARDIAC CATHETERIZATION 08/17/2018 N/A Procedur e: Pci percutaneous car diac angioplasty; Nascimento rgeon: Sanjay Kebede MD; Location: [facility] Vehicle Safety Inspector Invasive Locatio n; Service: Cardiov ascular; Laterality: N/A; LAD- POBA Medical devices from this surgery are in t he Implants section . CARDIAC CATHETERIZATION 03/05/2019 N/A Procedur e: CV SELECTIVE CORONARY ANGIOGR AM; Surgeon: Sanjay Kebede MD; Locatio n: [facility] Vehicle Safety Inspector Invasiv e Location; Servi ce: Cardiovascular; Laterality: N/A; CARDIAC CATHETERIZATION 03/05/2019 N/A Procedur e: Cv left heart cath; Surgeon: Sanjay Kebede MD; Location: [facility] Vehicle Safety Inspector Invasive Location; Servi ce: Cardiovascular; Laterality: N/A; CORONARY ANGIOPLASTY WITH 11/02/2017 total of 4 stents STENT PLACEMENT CREATION, AV FISTULA 11/25/2019 Right Procedure: RIGHT ARM BRACHIOBASILIC ARTERIOUVENOUS F ISTULA CREATION WITH TRANSPOSITION; Surgeon: Craig Barbosa MD; L ocation: [facility] OR; S ervice: Vascular; Later ality: Right; Medical History Medical History Date Comments Osteomyelitis (HCC) RA (rheumatoid arthritis) (HCC) Diabetes mellitus (HCC) Migraine Anemia chronic anemia Depression Anxiety RA (rheumatoid arthritis) (HCC) Advanced directives, will bring counseling/discussion Osteoporosis CHF (congestive heart failure) (HCC) Arrhythmia Hypertension Chronic kidney disease Seizure (HCC) 2001 Petite, last one charisma und 2014. Transfusion history selveral, most recen t about 2017 PONV (postoperative nausea and vomiting) Slow to wake up after anesthesia MRSA infection 2011 Renal failure 02/2019 Right chestwall tunn eled cath, //Mon Wears glasses Teeth missing Sleep apnea Myocardial infarction (HCC) Coronary artery disease Productive cough States it has been g oing on for weeks, thick, greeni sh-hemphill in color, Dr. Barbosa made a buenrostro in office 11/20/19. Hypothyroid patient states she d oes not have thyroid issues Family History Medical History Relation Name Comments Alzheimer's disease Father Dementia Father Dementia Mother Diabetes Mother Other Mother Epilepsy Diabetes Sister Relation Name Status Comments Father (Age 80's) Mother Sister Social History Tobacco Use Types Packs/Day Years Used Date Former Smoker Smokeless Tobacco: Never Used Comments: only smoked for 1 year. Alcohol Use Drinks/Week oz/Week Comments Not Currently Sex Assigned at Date Recorded Not on file COVID-19 Exposure Response Date Recorded In the last month, have you been in contact with No / Unsure 12/25/2019 1:04 PM PHARMACY GENERAL MANAGER someone who was confirmed or suspected to have Coronavirus / COVID-19? Last Filed Vital Signs Vital Sign Reading Time Taken Comments Blood Pressure 136/78 12/25/2019 1:25 PM PHARMACY GENERAL MANAGER Pulse 75 12/25/2019 1:25 PM PHARMACY GENERAL MANAGER Temperature 36.2 C (97.1 F) 12/25/2019 1:25 PM PHARMACY GENERAL MANAGER Respiratory Rate 20 11/25/2019 4:30 PM CDT Oxygen Saturation 96% 12/25/2019 1:25 PM PHARMACY GENERAL MANAGER Inhaled Oxygen Concentration - - Weight 86.6 kg (191 lb) 11/20/2019 5:26 PM CDT Height 165.1 cm (5' 5") 12/25/2019 1:25 PM PHARMACY GENERAL MANAGER Body Mass Index 31.78 11/20/2019 5:26 PM CDT Plan of Treatment Date Type Specialty Care Team Description 01/22/2020 Office Visit Cardiovascular Dagmar Eisenberg, [place] [address] [phone] Health Maintenance Due Date Last Done Comments CERVICAL CANCER SCREENING 09/24/1975 BREAST CANCER SCREENING 2004 COLONOSCOPY SCREENING 2004 SHINGLES VACCINES (#1) 2004 DIABETES: RETINAL EYE EXAM 01/08/2016 01/07/2015 DIABETIC FOOT EXAM 11/03/2016 11/04/2015 INFLUENZA VACCINE 09/21/2019 65+ PNEUMOCOCCAL VACCINE (1 of 1 - [id number]) 09/24/2019 Implants Implanted Type Area Folder Machine Operator Device Shelf Model / Identifier Expiration Serial / Date Lot Carloz Df4 - Active Tbp Single Shock, Icd Leads, Model [id number] - [id number] Cardiac Pacing N/A: 04/19/2022 [id number] / Implanted: 07/25/2019 at [facility] (Quantity not on file) Leads or N/A [id number] / Electrodes or [id number] Accessories Quartest Lead Double Bend, 86 Cm - [id number] Cardiac Pacing N/A: 04/19/2022 [id number] / Implanted: 07/25/2019 at [facility] (Quantity not on file) Leads or N/A [id number] / Electrodes or [id number] Accessories Lead Pace Bipolar Is-1 Endocrdl 46cm - [id number] Cardiac Pacing N/A: [employer] 04/19/2022 [id number] / Implanted: 07/25/2019 at [facility] (Quantity not on file) Leads or N/A [id number] / Electrodes or [id number] Accessories Catheter Bln Otw 2.5mm 12mm Sprinter - [id number] Cardiovascular N/A: [employer] [place] - [id number] / Implanted: 11/03/2017 at [facility] (Quantity not on file) Imp lants N/A VASCULAR / Catheter Bln Otw 2.5mm 12mm Sprinter - [id number] Cardiovascular N/A: [employer] [place] - [id number] / Implanted: 01/26/2018 at [facility] (Quantity not on file) Imp lants N/A VASCULAR / Envlp Impl Crdvrtr Dfb Antbctrl Fully Resorb Lg Aigiss rx R - [id number] Cardiovascular N/A: [employer] [id number] / Implanted: 07/25/2019 at [facility] (Quantity not on file) Implants N/A / Stent System 3.0 X 15mm Resolute Adams Otw Coronary - [id number] Coronary Stents N/A: [employer] [place] - [id number] / Implanted: 01/26/2018 at [facility] (Quantity not on file) N/A CARDIAC RYHTYM / MGMT Stent System 3.0 X 15mm Resolute Adams Otw Coronary - [id number] Coronary Stents N/A: [employer] [place] - [id number] / Implanted: 01/26/2018 at [facility] (Quantity not on file) N/A CARDIAC RYHTYM / MGMT Stent System 2.50 X 34mm Resolute Adams Rx Coronary - [id number] Coronary Stents N/A: [employer] [place] - [id number] / Implanted: 01/26/2018 at [facility] (Quantity not on file) N/A CARDIAC RYHTYM / MGMT Stent System 2.50 X 12mm Resolute Adams Otw Coronary - [id number] Coronary Stents N/A: [employer] [place] - [id number] / Implanted: 01/26/2018 at [facility] (Quantity not on file) N/A CARDIAC RYHTYM / MGMT Stent Catheter Synergy (Otw) 2.50mm X 24mm - [id number] Coronary Stents N/A: [facility] [id number] / Implanted: 08/21/2018 at [facility] (Quantity not on file) N/A INTERVENTIONAL / CARDIOLOGY Stent Catheter Synergy (Otw) 2.75mm X 16mm - [id number] Coronary Stents N/A: [facility] [id number] / Implanted: 08/21/2018 at [facility] (Quantity not on file) N/A INTERVENTIONAL / CARDIOLOGY Defibrillator Quadra Assura Mp - [id number] Defibrillator N/A: [employer] 06/19/2021 [id number] / Implanted: 07/25/2019 at [facility] (Quantity not on file) ICD Devices N/A CRM [id number] / [id number] Lock Screw Square 2.7mm X 15mm - [id number] IMPLANT Left: BIOM ET TRAUMA [id number] / Implanted: 11/08/2017 at [facility] (Quantity not on file) DEVICES Wrist / Lock Screw Square 2.7mm X 20mm - [id number] IPM IMPLANT Left: BIOM ET TRAUMA [id number] / Implanted: 11/08/2017 at [facility] (Quantity not on file) DEVICES Wrist / Lock Screw Square 2.7mm X 22mm - [id number] IPM IMPLANT Left: BIOM ET TRAUMA [id number] / Implanted: 11/08/2017 at [facility] (Quantity not on file) DEVICES Wrist / Lock Screw Square 2.7mm X 18mm - [id number] [id number] IMPLANT Left: BIOM ET TRAUMA [id number] / Implanted: 11/08/2017 at [facility] (Quantity not on file) DEVICES Wrist / Lp Non Lock 2.7mm X 14mm - [id number] IPM IMPLANT Left: BIOMET TRA BLUE [id number] / Implanted: 11/08/2017 at [facility] (Quantity not on file) DEVICES Wrist / Lp Non Lock 2.7mm X 20mm - [id number] IPM IMPLANT Left: BIOMET TRA BLUE [id number] / Implanted: 11/08/2017 at [facility] (Quantity not on file) DEVICES Wrist / 95 Deg Condylar Plate 9 Holes/80mm/156mm - [id number] IPM IMPLAN T Left: SYNTHES TRAUMA [id number] / Implanted: 11/08/2017 at [facility] (Quantity not on file) DEVICES Femur / Dvr Lock Medium L - [id number] IMPLANT Left: BIOMET TRAUMA [id number] / Implanted: 11/08/2017 at [facility] (Quantity not on file) DEVICES Wrist / Lock Screw Square 2.7mm X 16mm - [id number] IMPLANT Left: BIOM ET TRAUMA [id number] / Implanted: 11/08/2017 at [facility] (Quantity not on file) DEVICES Wrist / Clip Ligtng Weck Hemoclip Plus W/ Tape Ti Sm - [id number] Medica l Clips N/A: TELEFLEX 03/11/2023 [id number] / Implanted: Qty: 2 on 03/11/2019 by Kaiden Hammonds MD at [facility] for Internal Use N/A MEDICAL / Clip Ligtng Weck Hemoclip Plus W/ Tape Ti Sm Strngpnt - [id number] Medical Clips N/A: TELEFLEX 03/11/2023 [id number] / Implanted: Qty: 2 on 03/11/2019 by Kaiden Hammonds MD at [facility] for Internal Use N/A MEDICAL / Clip Ligtng Weck Hemoclip Plus W/ Tape Ti Med - [id number] Medic al Clips N/A: TELEFLEX 03/11/2023 [id number] / Implanted: Qty: 1 on 03/11/2019 by Kaiden Hammonds MD at [facility] for Internal Use N/A MEDICAL / Screw Bone Joel Slf-Tap W/ Lg Hxgnl Socket Ss 4.5x36mm - Log [id number] Orthopedic Left: SYNTHES TRAUMA [id number] / Implanted: 11/08/2017 at [facility] (Quantity not on file) Trauma Implants Femur AND RECON / Screw Bone Joel Slf-Tap W/ Lg Hxgnl Socket Ss 4.5x38mm - Log [id number] Orthopedic Left: SYNTHES TRAUMA 214 838 / Implanted: 11/08/2017 at [facility] (Quantity not on file) Trauma Implants Femur AND RECON / Screw Bone Joel Slf-Tap W/ Lg Hxgnl Socket Ss 4.5x42mm - Log [id number] Orthopedic Left: SYNTHES TRAUMA 214 842 / Implanted: 11/08/2017 at [facility] (Quantity not on file) Trauma Implants Femur AND RECON / Screw Bone Joel Slf-Tap W/ Lg Hxgnl Socket Ss 4.5x44mm - Log [id number] Orthopedic Left: SYNTHES TRAUMA 214 844 / Implanted: 11/08/2017 at [facility] (Quantity not on file) Trauma Implants Femur AND RECON / Screw Bone Joel Slf-Tap W/ Lg Hxgnl Socket Ss 4.5x48mm - Log [id number] Orthopedic Left: SYNTHES TRAUMA 214 848 / Implanted: 11/08/2017 at [facility] (Quantity not on file) Trauma Implants Femur AND RECON / Screw Bone Joel Slf-Tap W/ Lg Hxgnl Socket Ss 4.5x90mm - Log [id number] Orthopedic Left: SYNTHES TRAUMA 214 890 / Implanted: 11/08/2017 at [facility] (Quantity not on file) Trauma Implants Femur AND RECON / Screw Bone Canltd Thred Lg Hxgnl Socket Ss [id number] - Log [id number] Orthopedic Left: SYNTHES TRAUMA 208 875 / Implanted: 11/08/2017 at [facility] (Quantity not on file) Trauma Implants Femur AND RECON / Material Bone Hmsts Wtrsolbl 2.5g Ostene - [id number] Orthopedic N/A: 07/21/2023 [id number] / Implanted: 03/11/2019 at [facility] (Quantity not on file) Trauma Implants N/A / [id number] W System Clsr Sut Meditd 6fr Perclose Proglide - [id number] Surgic al N/A: EVANS VASCULAR 08/20/2019 [id number] / Implanted: 11/03/2017 at [facility] (Quantity not on file) Imp lants; N/A DEVICES / Expanders; [id number] Extenders; Surgical Wires System Clsr Sut Meditd 6fr Perclose Proglide - [id number] Surgic al N/A: EVANS VASCULAR 05/20/2020 [id number] / Implanted: 08/17/2018 at [facility] (Quantity not on file) Imp lants; N/A DEVICES / Expanders; [id number] Extenders; Surgical Wires Stabilizer Tiss Octopus Nuvo - [id number] Surgical N/A: [facility] - 09/19/2021 [id number] / Implanted: 03/11/2019 at [facility] (Quantity not on file) Imp lants; N/A CARDIAC SRGRY / Expanders; [id number] Extenders; Surgical Wires [facility] Vasclr Ptfe 1.2x10cm 1.65mm - [id number] Vascular Gra ft N/A: BARD PERIPHERAL 10/18/2023 [id number] / Implanted: 03/11/2019 at [facility] (Quantity not on file) N/A VASCULAR / [id number] Hip Replacement Pacemaker Hardware Left: Wrist Procedures Procedure Name Priority Date/Time Associated Diagnosis Comme nts US DUPLEX Routine 12/25/2019 1:45 ESRD (end stage renal Re sults for this HEMODIALYSIS AVG AVF PM PHARMACY GENERAL MANAGER disease) (HCC) proce dure are in ACCESS the results section. POC GLUCOSE Routine 11/25/2019 3:36 Results for this PM CDT procedure are i n the results section. AK AN PERIPHERAL Routine 11/25/2019 12:13 Results for this BLOCK PROCEDURE FOR PM CDT procedur e are in PAIN the results section. POC GLUCOSE Routine 11/25/2019 10:00 Results for this AM CDT procedure are i n the results section. ESTIMATED GFR STAT 11/25/2019 10:00 Results fo r this AM CDT procedure are i n the results section. PARTIAL STAT 11/25/2019 10:00 Results for this THROMBOPLASTIN TIME AM CDT procedur e are in (PTT) the results section. PROTHROMBIN TIME WITH STAT 11/25/2019 10:00 Re sults for this INR AM CDT procedure are i n the results section. COMPREHENSIVE STAT 11/25/2019 10:00 Results fo r this METABOLIC PANEL AM CDT procedure ar e in the results section. TYPE AND SCREEN Routine 11/25/2019 10:00 ESRD (end stage renal Results for this AM CDT disease) (HCC) procedure are in the results section. XR CHEST 2 VW Routine 11/20/2019 6:33 Pre-op testing Results for this PM CDT procedure are i n the results section. HEMOGLOBIN A1C Routine 11/20/2019 5:21 Pre-op testing Results for this PM CDT procedure are i n the results section. TYPE AND SCREEN Routine 11/20/2019 5:21 Pre-op testing Result s for this PM CDT procedure are i n the results section. HC COMPLETE BLD COUNT Routine 11/20/2019 5:21 ESRD (end stage renal Results for this W/AUTO DIFF PM CDT disease) ([facility]) procedure are in the results section. COVID-19 QUALITATIVE Routine 11/20/2019 5:21 ESRD (end stage renal Results for this PCR PM CDT disease) ([facility]) procedure are in the results section. ECG PRE/POST OP Routine 11/20/2019 4:57 Pre-op testing Result s for this PM CDT procedure are i n the results section. US VEIN MAPPING UPPER Routine 11/20/2019 3:50 Arteriovenous f istula Results for this EXTREMITY BILATERAL PM CDT for hemodialysis in p [facility] region are in place, primary (HCC) the res ults section. POC GLUCOSE Routine 07/26/2019 8:10 Results for this AM CDT procedure are i n the results section. POC GLUCOSE Routine 07/26/2019 6:15 Results for this AM CDT procedure are i n the results section. POC GLUCOSE Routine 07/25/2019 5:37 Results for this PM CDT procedure are i n the results section. HEPATITIS B SURFACE STAT 07/25/2019 12:15 Resu lts for this ANTIGEN PM CDT procedure are i n the results section. XR CHEST 1 VW Routine 07/25/2019 10:38 Results fo r this PORTABLE AM CDT procedure are i n the results section. ECG 12-LEAD Routine 07/25/2019 10:32 Results for this AM CDT procedure are i n the results section. POC GLUCOSE Routine 07/25/2019 10:07 Results for this AM CDT procedure are i n the results section. HEMODIALYSIS Routine 07/25/2019 9:44 AM CDT EP AICD IMPLANT Routine 07/25/2019 9:43 Ischemic diabetic Res ults for this SINGLE DUAL BI VENT AM CDT maculopathy with sil re procedure are in nonproliferative the results retinopathy and macular sect ion. edema associated with type 2 diabetes mellitus ([facility]) LBBB (left bundle branch block) NYHA class 3 acute on chronic systolic heart failure ([facility]) POC PANEL Routine 07/25/2019 7:14 Results for this AM CDT procedure are i n the results section. ESTIMATED GFR Routine 07/25/2019 7:14 Results fo r this AM CDT procedure are i n the results section. ECG PRE/POST OP Routine 07/25/2019 6:28 Results for this AM CDT procedure are i n the results section. POC GLUCOSE Routine 07/25/2019 6:14 Results for this AM CDT procedure are i n the results section. XR CHEST 2 VW Routine 03/19/2019 9:57 Results fo r this AM PHARMACY GENERAL MANAGER procedure are i n the results section. POC GLUCOSE Routine 03/19/2019 8:25 Results for this AM PHARMACY GENERAL MANAGER procedure are i n the results section. MANUAL DIFFERENTIAL Routine 03/19/2019 5:45 Resu lts for this AM PHARMACY GENERAL MANAGER procedure are i n the results section. CBC WITH PLATELET AND Routine 03/19/2019 5:45 Re sults for this DIFFERENTIAL AM PHARMACY GENERAL MANAGER procedure are i n the results section. ESTIMATED GFR Routine 03/19/2019 5:37 Results fo r this AM PHARMACY GENERAL MANAGER procedure are i n the results section. BASIC METABOLIC PANEL Routine 03/19/2019 5:37 Re sults for this AM PHARMACY GENERAL MANAGER procedure are i n the results section. POC GLUCOSE Routine 03/18/2019 9:08 Results for this PM PHARMACY GENERAL MANAGER procedure are i n the results section. POC GLUCOSE Routine 03/18/2019 5:05 Results for this PM PHARMACY GENERAL MANAGER procedure are i n the results section. POC GLUCOSE Routine 03/18/2019 1:33 Results for this PM PHARMACY GENERAL MANAGER procedure are i n the results section. HEPATITIS C ANTIBODY Routine 03/18/2019 10:11 Res ults for this AM PHARMACY GENERAL MANAGER procedure are i n the results section. HEPATITIS B SURFACE Routine 03/18/2019 10:11 Resu lts for this ANTIGEN AM PHARMACY GENERAL MANAGER procedure are i n the results section. HEPATITIS B SURFACE Routine 03/18/2019 10:11 Resu lts for this ANTIBODY AM PHARMACY GENERAL MANAGER procedure are i n the results section. HEPATITIS B SURFACE Routine 03/18/2019 10:11 Resu lts for this AB, QUANTITATIVE AM PHARMACY GENERAL MANAGER procedure a re in the results section. HEPATITIS B CORE Routine 03/18/2019 10:11 Results for this ANTIBODY TOTAL AM PHARMACY GENERAL MANAGER procedure are in the results section. POC GLUCOSE Routine 03/18/2019 9:53 Results for this AM PHARMACY GENERAL MANAGER procedure are i n the results section. MANUAL DIFFERENTIAL Routine 03/18/2019 8:30 Resu lts for this AM PHARMACY GENERAL MANAGER procedure are i n the results section. ESTIMATED GFR Routine 03/18/2019 8:30 Results fo r this AM PHARMACY GENERAL MANAGER procedure are i n the results section. BASIC METABOLIC PANEL Routine 03/18/2019 8:30 Re sults for this AM PHARMACY GENERAL MANAGER procedure are i n the results section. CBC WITH PLATELET AND Routine 03/18/2019 8:30 Re sults for this DIFFERENTIAL AM PHARMACY GENERAL MANAGER procedure are i n the results section. POC GLUCOSE Routine 03/18/2019 7:54 Results for this AM PHARMACY GENERAL MANAGER procedure are i n the results section. POC GLUCOSE Routine 03/17/2019 9:15 Results for this PM PHARMACY GENERAL MANAGER procedure are i n the results section. HEMODIALYSIS Routine 03/17/2019 6:04 PM PHARMACY GENERAL MANAGER POC GLUCOSE Routine 03/17/2019 5:18 Results for this PM PHARMACY GENERAL MANAGER procedure are i n the results section. POC GLUCOSE Routine 03/17/2019 12:40 Results for this PM PHARMACY GENERAL MANAGER procedure are i n the results section. POC GLUCOSE Routine 03/17/2019 10:45 Results for this AM PHARMACY GENERAL MANAGER procedure are i n the results section. POC GLUCOSE Routine 03/17/2019 7:57 Results for this AM PHARMACY GENERAL MANAGER procedure are i n the results section. POC GLUCOSE Routine 03/16/2019 10:06 Results for this PM PHARMACY GENERAL MANAGER procedure are i n the results section. POC GLUCOSE Routine 03/16/2019 9:19 Results for this PM PHARMACY GENERAL MANAGER procedure are i n the results section. POC GLUCOSE Routine 03/16/2019 9:17 Results for this PM PHARMACY GENERAL MANAGER procedure are i n the results section. POC GLUCOSE Routine 03/16/2019 5:43 Results for this PM PHARMACY GENERAL MANAGER procedure are i n the results section. POC GLUCOSE Routine 03/16/2019 12:20 Results for this PM PHARMACY GENERAL MANAGER procedure are i n the results section. POC GLUCOSE Routine 03/16/2019 7:39 Results for this AM PHARMACY GENERAL MANAGER procedure are i n the results section. HC COMPLETE BLD COUNT Routine 03/16/2019 5:00 Re sults for this W/AUTO DIFF AM PHARMACY GENERAL MANAGER procedure are i n the results section. POC GLUCOSE Routine 03/15/2019 7:51 Results for this PM PHARMACY GENERAL MANAGER procedure are i n the results section. POC GLUCOSE Routine 03/15/2019 5:31 Results for this PM PHARMACY GENERAL MANAGER procedure are i n the results section. POC GLUCOSE Routine 03/15/2019 1:29 Results for this PM PHARMACY GENERAL MANAGER procedure are i n the results section. POC GLUCOSE Routine 03/15/2019 12:21 Results for this PM PHARMACY GENERAL MANAGER procedure are i n the results section. HEMODIALYSIS Routine 03/15/2019 11:14 AM PHARMACY GENERAL MANAGER POC GLUCOSE Routine 03/15/2019 7:48 Results for this AM PHARMACY GENERAL MANAGER procedure are i n the results section. POC GLUCOSE Routine 03/15/2019 5:05 Results for this AM PHARMACY GENERAL MANAGER procedure are i n the results section. HC COMPLETE BLD COUNT Routine 03/15/2019 5:00 Re sults for this W/AUTO DIFF AM PHARMACY GENERAL MANAGER procedure are i n the results section. POC GLUCOSE Routine 03/14/2019 8:17 Results for this PM PHARMACY GENERAL MANAGER procedure are i n the results section. POC GLUCOSE Routine 03/14/2019 4:31 Results for this PM PHARMACY GENERAL MANAGER procedure are i n the results section. IR TUNNELED DIALYSIS Routine 03/14/2019 4:07 Res ults for this CATHETER PLACEMENT PM PHARMACY GENERAL MANAGER procedure are in the results section. POC GLUCOSE Routine 03/14/2019 2:31 Results for this PM PHARMACY GENERAL MANAGER procedure are i n the results section. POC GLUCOSE Routine 03/14/2019 11:17 Results for this AM PHARMACY GENERAL MANAGER procedure are i n the results section. POC GLUCOSE Routine 03/14/2019 8:12 Results for this AM PHARMACY GENERAL MANAGER procedure are i n the results section. ECG 12-LEAD Routine 03/14/2019 6:48 Results for this AM PHARMACY GENERAL MANAGER procedure are i n the results section. HC COMPLETE BLD COUNT Routine 03/14/2019 5:00 Re sults for this W/AUTO DIFF AM PHARMACY GENERAL MANAGER procedure are i n the results section. ESTIMATED GFR Routine 03/14/2019 12:00 Results fo r this AM PHARMACY GENERAL MANAGER procedure are i n the results section. PHOSPHORUS LEVEL Routine 03/14/2019 12:00 Results for this AM PHARMACY GENERAL MANAGER procedure are i n the results section. IONIZED CALCIUM Routine 03/14/2019 12:00 Results for this AM PHARMACY GENERAL MANAGER procedure are i n the results section. MAGNESIUM LEVEL Routine 03/14/2019 12:00 Results for this AM PHARMACY GENERAL MANAGER procedure are i n the results section. BASIC METABOLIC PANEL Routine 03/14/2019 12:00 Re sults for this AM PHARMACY GENERAL MANAGER procedure are i n the results section. POC GLUCOSE Routine 03/13/2019 6:06 Results for this PM PHARMACY GENERAL MANAGER procedure are i n the results section. POC GLUCOSE Routine 03/13/2019 11:38 Results for this AM PHARMACY GENERAL MANAGER procedure are i n the results section. POC GLUCOSE Routine 03/13/2019 11:02 Results for this AM PHARMACY GENERAL MANAGER procedure are i n the results section. POC GLUCOSE Routine 03/13/2019 7:55 Results for this AM PHARMACY GENERAL MANAGER procedure are i n the results section. XR CHEST 1 VW Routine 03/13/2019 6:09 Results fo r this PORTABLE AM PHARMACY GENERAL MANAGER procedure are i n the results section. POC GLUCOSE Routine 03/13/2019 4:24 Results for this AM PHARMACY GENERAL MANAGER procedure are i n the results section. ECG 12-LEAD Routine 03/13/2019 4:16 Results for this AM PHARMACY GENERAL MANAGER procedure are i n the results section. ESTIMATED GFR Routine 03/13/2019 1:45 Results fo r this AM PHARMACY GENERAL MANAGER procedure are i n the results section. MAGNESIUM LEVEL Routine 03/13/2019 1:45 Results for this AM PHARMACY GENERAL MANAGER procedure are i n the results section. BASIC METABOLIC PANEL Routine 03/13/2019 1:45 Re sults for this AM PHARMACY GENERAL MANAGER procedure are i n the results section. CBC HEMOGRAM Routine 03/13/2019 1:45 Results for this AM PHARMACY GENERAL MANAGER procedure are i n the results section. POC GLUCOSE Routine 03/12/2019 8:02 Results for this PM PHARMACY GENERAL MANAGER procedure are i n the results section. HEMODIALYSIS Routine 03/12/2019 7:11 PM PHARMACY GENERAL MANAGER POC GLUCOSE Routine 03/12/2019 5:09 Results for this PM PHARMACY GENERAL MANAGER procedure are i n the results section. POC GLUCOSE Routine 03/12/2019 11:24 Results for this AM PHARMACY GENERAL MANAGER procedure are i n the results section. XR CHEST 1 VW STAT 03/12/2019 9:44 Results fo r this PORTABLE AM PHARMACY GENERAL MANAGER procedure are i n the results section. POC GLUCOSE Routine 03/12/2019 7:13 Results for this AM PHARMACY GENERAL MANAGER procedure are i n the results section. XR CHEST 1 VW Routine 03/12/2019 6:47 Results fo r this PORTABLE AM PHARMACY GENERAL MANAGER procedure are i n the results section. POC GLUCOSE Routine 03/12/2019 6:03 Results for this AM PHARMACY GENERAL MANAGER procedure are i n the results section. ARTERIAL BLOOD GAS STAT 03/12/2019 5:58 Resul ts for this AM PHARMACY GENERAL MANAGER procedure are i n the results section. POC GLUCOSE Routine 03/12/2019 4:18 Results for this AM PHARMACY GENERAL MANAGER procedure are i n the results section. ECG 12-LEAD Routine 03/12/2019 3:39 Results for this AM PHARMACY GENERAL MANAGER procedure are i n the results section. POC GLUCOSE Routine 03/12/2019 2:11 Results for this AM PHARMACY GENERAL MANAGER procedure are i n the results section. ESTIMATED GFR Routine 03/12/2019 12:55 Results fo r this AM PHARMACY GENERAL MANAGER procedure are i n the results section. MAGNESIUM LEVEL Routine 03/12/2019 12:55 Results for this AM PHARMACY GENERAL MANAGER procedure are i n the results section. BASIC METABOLIC PANEL Routine 03/12/2019 12:55 Re sults for this AM PHARMACY GENERAL MANAGER procedure are i n the results section. CBC HEMOGRAM Routine 03/12/2019 12:55 Results for this AM PHARMACY GENERAL MANAGER procedure are i n the results section. POC GLUCOSE Routine 03/12/2019 12:04 Results for this AM PHARMACY GENERAL MANAGER procedure are i n the results section. POC GLUCOSE Routine 03/11/2019 11:09 Results for this PM PHARMACY GENERAL MANAGER procedure are i n the results section. POC GLUCOSE Routine 03/11/2019 10:11 Results for this PM PHARMACY GENERAL MANAGER procedure are i n the results section. POC GLUCOSE Routine 03/11/2019 9:42 Results for this PM PHARMACY GENERAL MANAGER procedure are i n the results section. POC GLUCOSE Routine 03/11/2019 8:51 Results for this PM PHARMACY GENERAL MANAGER procedure are i n the results section. POC GLUCOSE Routine 03/11/2019 6:09 Results for this PM PHARMACY GENERAL MANAGER procedure are i n the results section. POC GLUCOSE Routine 03/11/2019 5:13 Results for this PM PHARMACY GENERAL MANAGER procedure are i n the results section. HEMODIALYSIS Routine 03/11/2019 4:49 PM PHARMACY GENERAL MANAGER POC GLUCOSE Routine 03/11/2019 4:40 Results for this PM PHARMACY GENERAL MANAGER procedure are i n the results section. ECG 12-LEAD STAT 03/11/2019 4:10 Results for this PM PHARMACY GENERAL MANAGER procedure are i n the results section. POC GLUCOSE Routine 03/11/2019 3:25 Results for this PM PHARMACY GENERAL MANAGER procedure are i n the results section. ARTERIAL BLOOD GAS STAT 03/11/2019 3:07 Resul ts for this PM PHARMACY GENERAL MANAGER procedure are i n the results section. POC GLUCOSE Routine 03/11/2019 2:18 Results for this PM PHARMACY GENERAL MANAGER procedure are i n the results section. XR CHEST 1 VW Routine 03/11/2019 2:17 Results fo r this PORTABLE PM PHARMACY GENERAL MANAGER procedure are i n the results section. IONIZED CALCIUM, Routine 03/11/2019 1:34 Results for this ARTERIAL PM PHARMACY GENERAL MANAGER procedure are i n the results section. ESTIMATED GFR Routine 03/11/2019 1:34 Results fo r this PM PHARMACY GENERAL MANAGER procedure are i n the results section. ARTERIAL BLOOD GAS Routine 03/11/2019 1:34 Resul ts for this PM PHARMACY GENERAL MANAGER procedure are i n the results section. PARTIAL Routine 03/11/2019 1:34 Results for this THROMBOPLASTIN TIME PM PHARMACY GENERAL MANAGER procedur e are in (PTT) the results section. PROTHROMBIN TIME WITH Routine 03/11/2019 1:34 Re sults for this INR PM PHARMACY GENERAL MANAGER procedure are i n the results section. PHOSPHORUS LEVEL Routine 03/11/2019 1:34 Results for this PM PHARMACY GENERAL MANAGER procedure are i n the results section. MAGNESIUM LEVEL Routine 03/11/2019 1:34 Results for this PM PHARMACY GENERAL MANAGER procedure are i n the results section. HC COMPLETE BLD COUNT Routine 03/11/2019 1:34 Re sults for this W/AUTO DIFF PM PHARMACY GENERAL MANAGER procedure are i n the results section. BASIC METABOLIC PANEL Routine 03/11/2019 1:34 Re sults for this PM PHARMACY GENERAL MANAGER procedure are i n the results section. POC GLUCOSE Routine 03/11/2019 1:27 Results for this PM PHARMACY GENERAL MANAGER procedure are i n the results section. CONSULT CARDIAC REHAB Routine 03/11/2019 1:14 PHASE 1 PM PHARMACY GENERAL MANAGER ACTIVATED CLOTTING Routine 03/11/2019 11:50 Resul ts for this TIME AM PHARMACY GENERAL MANAGER procedure are i n the results section. GLUCOSE LEVEL, STAT 03/11/2019 11:14 Results f or this SYRINGE AM PHARMACY GENERAL MANAGER procedure are i n the results section. LACTIC ACID, SYRINGE STAT 03/11/2019 11:14 Res ults for this AM PHARMACY GENERAL MANAGER procedure are i n the results section. IONIZED CALCIUM, STAT 03/11/2019 11:14 Results for this ARTERIAL AM PHARMACY GENERAL MANAGER procedure are i n the results section. HEMOGLOBIN, SYRINGE STAT 03/11/2019 11:14 Resu lts for this AM PHARMACY GENERAL MANAGER procedure are i n the results section. SODIUM LEVEL, SYRINGE STAT 03/11/2019 11:14 Re sults for this AM PHARMACY GENERAL MANAGER procedure are i n the results section. POTASSIUM, SYRINGE STAT 03/11/2019 11:14 Resul ts for this AM PHARMACY GENERAL MANAGER procedure are i n the results section. ARTERIAL BLOOD GAS STAT 03/11/2019 11:14 Resul ts for this AM PHARMACY GENERAL MANAGER procedure are i n the results section. ACTIVATED CLOTTING Routine 03/11/2019 10:48 Resul ts for this TIME AM PHARMACY GENERAL MANAGER procedure are i n the results section. TRANSFUSE RED BLOOD Routine 03/11/2019 10:31 CELLS AM PHARMACY GENERAL MANAGER TRANSFUSE RED BLOOD Routine 03/11/2019 10:10 CELLS AM PHARMACY GENERAL MANAGER ANESTHESIA RASHEL Routine 03/11/2019 9:06 Results f or this AM PHARMACY GENERAL MANAGER procedure are i n the results section. CENTRAL LINE Routine 03/11/2019 9:05 Results for this AM PHARMACY GENERAL MANAGER procedure are i n the results section. ARTERIAL LINE Routine 03/11/2019 9:05 Results fo r this AM PHARMACY GENERAL MANAGER procedure are i n the results section. ANESTHESIA INTUBATION Routine 03/11/2019 9:04 Re sults for this AM PHARMACY GENERAL MANAGER procedure are i n the results section. ACTIVATED CLOTTING Routine 03/11/2019 8:30 Resul ts for this TIME AM PHARMACY GENERAL MANAGER procedure are i n the results section. ARTERIAL BLOOD GAS, STAT 03/11/2019 8:30 Resu lts for this CORRECTED AM PHARMACY GENERAL MANAGER procedure are i n the results section. POTASSIUM, SYRINGE STAT 03/11/2019 8:30 Resul ts for this AM PHARMACY GENERAL MANAGER procedure are i n the results section. SODIUM LEVEL, SYRINGE STAT 03/11/2019 8:30 Re sults for this AM PHARMACY GENERAL MANAGER procedure are i n the results section. HEMOGLOBIN, SYRINGE STAT 03/11/2019 8:30 Resu lts for this AM PHARMACY GENERAL MANAGER procedure are i n the results section. IONIZED CALCIUM, STAT 03/11/2019 8:30 Results for this ARTERIAL AM PHARMACY GENERAL MANAGER procedure are i n the results section. GLUCOSE LEVEL, STAT 03/11/2019 8:30 Results f or this SYRINGE AM PHARMACY GENERAL MANAGER procedure are i n the results section. PREPARE RBC Routine 03/11/2019 7:59 Results for this AM PHARMACY GENERAL MANAGER procedure are i n the results section. TYPE AND SCREEN Routine 03/11/2019 7:59 Results for this AM PHARMACY GENERAL MANAGER procedure are i n the results section. ESTIMATED GFR Routine 03/11/2019 5:30 Results fo r this AM PHARMACY GENERAL MANAGER procedure are i n the results section. BASIC METABOLIC PANEL Routine 03/11/2019 5:30 Re sults for this AM PHARMACY GENERAL MANAGER procedure are i n the results section. POC GLUCOSE Routine 03/11/2019 5:00 Results for this AM PHARMACY GENERAL MANAGER procedure are i n the results section. POC GLUCOSE Routine 03/10/2019 9:15 Results for this PM PHARMACY GENERAL MANAGER procedure are i n the results section. HEMODIALYSIS Routine 03/10/2019 6:52 PM PHARMACY GENERAL MANAGER POC GLUCOSE Routine 03/10/2019 4:53 Results for this PM PHARMACY GENERAL MANAGER procedure are i n the results section. POC GLUCOSE Routine 03/10/2019 1:03 Results for this PM PHARMACY GENERAL MANAGER procedure are i n the results section. POC GLUCOSE Routine 03/10/2019 11:29 Results for this AM PHARMACY GENERAL MANAGER procedure are i n the results section. POC GLUCOSE Routine 03/10/2019 7:53 Results for this AM PHARMACY GENERAL MANAGER procedure are i n the results section. HC COMPLETE BLD COUNT Routine 03/10/2019 6:30 Re sults for this W/AUTO DIFF AM PHARMACY GENERAL MANAGER procedure are i n the results section. ESTIMATED GFR Routine 03/10/2019 4:00 Results fo r this AM PHARMACY GENERAL MANAGER procedure are i n the results section. T4, FREE Routine 03/10/2019 4:00 Results for this AM PHARMACY GENERAL MANAGER procedure are i n the results section. THYROID STIMULATING Routine 03/10/2019 4:00 Resu lts for this HORMONE AM PHARMACY GENERAL MANAGER procedure are i n the results section. HEPATIC FUNCTION Routine 03/10/2019 4:00 Results for this PANEL AM PHARMACY GENERAL MANAGER procedure are i n the results section. LIPID PANEL Routine 03/10/2019 4:00 Results for this AM PHARMACY GENERAL MANAGER procedure are i n the results section. BASIC METABOLIC PANEL Routine 03/10/2019 4:00 Re sults for this AM PHARMACY GENERAL MANAGER procedure are i n the results section. POC GLUCOSE Routine 03/09/2019 9:22 Results for this PM PHARMACY GENERAL MANAGER procedure are i n the results section. POC GLUCOSE Routine 03/09/2019 4:40 Results for this PM PHARMACY GENERAL MANAGER procedure are i n the results section. HEPATITIS B SURFACE STAT 03/09/2019 1:45 Resu lts for this ANTIGEN PM PHARMACY GENERAL MANAGER procedure are i n the results section. POC GLUCOSE Routine 03/09/2019 12:44 Results for this PM PHARMACY GENERAL MANAGER procedure are i n the results section. POC GLUCOSE Routine 03/09/2019 8:11 Results for this AM PHARMACY GENERAL MANAGER procedure are i n the results section. ESTIMATED GFR Routine 03/09/2019 5:25 Results fo r this AM PHARMACY GENERAL MANAGER procedure are i n the results section. MAGNESIUM LEVEL Routine 03/09/2019 5:25 Results for this AM PHARMACY GENERAL MANAGER procedure are i n the results section. BASIC METABOLIC PANEL Routine 03/09/2019 5:25 Re sults for this AM PHARMACY GENERAL MANAGER procedure are i n the results section. HC COMPLETE BLD COUNT Routine 03/09/2019 5:20 Re sults for this W/AUTO DIFF AM PHARMACY GENERAL MANAGER procedure are i n the results section. POC GLUCOSE Routine 03/08/2019 11:06 Results for this PM PHARMACY GENERAL MANAGER procedure are i n the results section. HEMODIALYSIS CATHETER Routine 03/08/2019 10:42 Chronic kidney disease, Results for this PLACEMENT PM PHARMACY GENERAL MANAGER unspecified CKD stage proced ure are in the results section. POC GLUCOSE Routine 03/08/2019 9:32 Results for this PM PHARMACY GENERAL MANAGER procedure are i n the results section. HEMODIALYSIS Routine 03/08/2019 6:17 PM PHARMACY GENERAL MANAGER POC GLUCOSE Routine 03/08/2019 5:27 Results for this PM PHARMACY GENERAL MANAGER procedure are i n the results section. POC GLUCOSE Routine 03/08/2019 5:22 Results for this PM PHARMACY GENERAL MANAGER procedure are i n the results section. POC GLUCOSE Routine 03/08/2019 12:25 Results for this PM PHARMACY GENERAL MANAGER procedure are i n the results section. POC GLUCOSE Routine 03/08/2019 12:24 Results for this PM PHARMACY GENERAL MANAGER procedure are i n the results section. POC GLUCOSE Routine 03/08/2019 8:23 Results for this AM PHARMACY GENERAL MANAGER procedure are i n the results section. POC GLUCOSE Routine 03/08/2019 6:34 Results for this AM PHARMACY GENERAL MANAGER procedure are i n the results section. ESTIMATED GFR Routine 03/08/2019 5:00 Results fo r this AM PHARMACY GENERAL MANAGER procedure are i n the results section. BASIC METABOLIC PANEL Routine 03/08/2019 5:00 Re sults for this AM PHARMACY GENERAL MANAGER procedure are i n the results section. HC COMPLETE BLD COUNT Routine 03/08/2019 5:00 Re sults for this W/AUTO DIFF AM PHARMACY GENERAL MANAGER procedure are i n the results section. POC GLUCOSE Routine 03/07/2019 9:15 Results for this PM PHARMACY GENERAL MANAGER procedure are i n the results section. POC GLUCOSE Routine 03/07/2019 5:57 Results for this PM PHARMACY GENERAL MANAGER procedure are i n the results section. POC GLUCOSE Routine 03/07/2019 11:23 Results for this AM PHARMACY GENERAL MANAGER procedure are i n the results section. POC GLUCOSE Routine 03/07/2019 7:58 Results for this AM PHARMACY GENERAL MANAGER procedure are i n the results section. ESTIMATED GFR Routine 03/07/2019 7:40 Results fo r this AM PHARMACY GENERAL MANAGER procedure are i n the results section. TYPE AND SCREEN Routine 03/07/2019 7:40 Results for this AM PHARMACY GENERAL MANAGER procedure are i n the results section. BASIC METABOLIC PANEL Routine 03/07/2019 7:40 Re sults for this AM PHARMACY GENERAL MANAGER procedure are i n the results section. HC COMPLETE BLD COUNT Routine 03/07/2019 7:40 Re sults for this W/AUTO DIFF AM PHARMACY GENERAL MANAGER procedure are i n the results section. POC GLUCOSE Routine 03/07/2019 4:53 Results for this AM PHARMACY GENERAL MANAGER procedure are i n the results section. SMEAR REVIEW Routine 03/07/2019 4:45 Results for this AM PHARMACY GENERAL MANAGER procedure are i n the results section. ESTIMATED GFR Routine 03/07/2019 4:45 Results fo r this AM PHARMACY GENERAL MANAGER procedure are i n the results section. B NATRIURETIC PEPTIDE Routine 03/07/2019 4:45 Re sults for this AM PHARMACY GENERAL MANAGER procedure are i n the results section. HC COMPLETE BLD COUNT Routine 03/07/2019 4:45 Re sults for this W/AUTO DIFF AM PHARMACY GENERAL MANAGER procedure are i n the results section. BASIC METABOLIC PANEL Routine 03/07/2019 4:45 Re sults for this AM PHARMACY GENERAL MANAGER procedure are i n the results section. VENOUS BLOOD GAS Routine 03/07/2019 4:45 Results for this AM PHARMACY GENERAL MANAGER procedure are i n the results section. URINALYSIS SCREEN AND Routine 03/07/2019 1:00 Re sults for this MICROSCOPY, WITH AM PHARMACY GENERAL MANAGER procedure a re in REFLEX TO CULTURE the result s section. POC GLUCOSE Routine 03/06/2019 8:59 Results for this PM PHARMACY GENERAL MANAGER procedure are i n the results section. POC GLUCOSE Routine 03/06/2019 4:45 Results for this PM PHARMACY GENERAL MANAGER procedure are i n the results section. US CAROTID DUPLEX Routine 03/06/2019 3:45 Result s for this BILATERAL PM PHARMACY GENERAL MANAGER procedure are i n the results section. TTE COMPLETE, WO Routine 03/06/2019 3:29 Results for this CONTRAST, W DOPPLER PM PHARMACY GENERAL MANAGER procedur e are in ([id number]) the results section. HEMOGLOBIN A1C Routine 03/06/2019 3:05 Results f or this PM PHARMACY GENERAL MANAGER procedure are i n the results section. URINE CULTURE Routine 03/06/2019 12:19 Results fo r this PM PHARMACY GENERAL MANAGER procedure are i n the results section. GRAM STAIN Routine 03/06/2019 12:19 Results for this PM PHARMACY GENERAL MANAGER procedure are i n the results section. POC GLUCOSE Routine 03/06/2019 12:05 Results for this PM PHARMACY GENERAL MANAGER procedure are i n the results section. CREATININE LEVEL, Routine 03/06/2019 10:55 Result s for this URINE, RANDOM AM PHARMACY GENERAL MANAGER procedure are in the results section. SODIUM LEVEL, URINE, Routine 03/06/2019 10:55 Res ults for this RANDOM AM PHARMACY GENERAL MANAGER procedure are i n the results section. URINALYSIS SCREEN AND Routine 03/06/2019 10:55 Re sults for this MICROSCOPY, WITH AM PHARMACY GENERAL MANAGER procedure a re in REFLEX TO CULTURE the result s section. POC GLUCOSE Routine 03/06/2019 8:50 Results for this AM PHARMACY GENERAL MANAGER procedure are i n the results section. ESTIMATED GFR Routine 03/06/2019 3:55 Results fo r this AM PHARMACY GENERAL MANAGER procedure are i n the results section. PHOSPHORUS LEVEL Routine 03/06/2019 3:55 Results for this AM PHARMACY GENERAL MANAGER procedure are i n the results section. MAGNESIUM LEVEL Routine 03/06/2019 3:55 Results for this AM PHARMACY GENERAL MANAGER procedure are i n the results section. HC COMPLETE BLD COUNT Routine 03/06/2019 3:55 Re sults for this W/AUTO DIFF AM PHARMACY GENERAL MANAGER procedure are i n the results section. B NATRIURETIC PEPTIDE Routine 03/06/2019 3:55 Re sults for this AM PHARMACY GENERAL MANAGER procedure are i n the results section. BASIC METABOLIC PANEL Routine 03/06/2019 3:55 Re sults for this AM PHARMACY GENERAL MANAGER procedure are i n the results section. POC GLUCOSE Routine 03/06/2019 1:30 Results for this AM PHARMACY GENERAL MANAGER procedure are i n the results section. POC GLUCOSE Routine 03/05/2019 9:16 Results for this PM PHARMACY GENERAL MANAGER procedure are i n the results section. POC GLUCOSE Routine 03/05/2019 5:09 Results for this PM PHARMACY GENERAL MANAGER procedure are i n the results section. HEMOGLOBIN A1C Routine 03/05/2019 4:30 Results f or this PM PHARMACY GENERAL MANAGER procedure are i n the results section. POC GLUCOSE Routine 03/05/2019 11:34 Results for this AM PHARMACY GENERAL MANAGER procedure are i n the results section. CV LEFT HEART CATH Routine 03/05/2019 8:13 ASCVD (arterioscle rotic Results for this AM PHARMACY GENERAL MANAGER cardiovascular disease) proc edure are in the results section. CV SELECTIVE CORONARY Routine 03/05/2019 8:13 ASCVD (arterios clerotic Results for this ANGIOGRAPHY AM PHARMACY GENERAL MANAGER cardiovascular disease) proc edure are in the results section. ESTIMATED GFR Routine 03/05/2019 3:20 Results fo r this AM PHARMACY GENERAL MANAGER procedure are i n the results section. THYROID STIMULATING Routine 03/05/2019 3:20 Resu lts for this HORMONE AM PHARMACY GENERAL MANAGER procedure are i n the results section. MAGNESIUM LEVEL Routine 03/05/2019 3:20 Results for this AM PHARMACY GENERAL MANAGER procedure are i n the results section. B NATRIURETIC PEPTIDE Routine 03/05/2019 3:20 Re sults for this AM PHARMACY GENERAL MANAGER procedure are i n the results section. BASIC METABOLIC PANEL Routine 03/05/2019 3:20 Re sults for this AM PHARMACY GENERAL MANAGER procedure are i n the results section. HC COMPLETE BLD COUNT Routine 03/05/2019 3:20 Re sults for this W/AUTO DIFF AM PHARMACY GENERAL MANAGER procedure are i n the results section. ANTI XA, Routine 03/05/2019 2:14 Results for this UNFRACTIONATED AM PHARMACY GENERAL MANAGER procedure are in the results section. TROPONIN Routine 03/05/2019 12:40 Results for this AM PHARMACY GENERAL MANAGER procedure are i n the results section. ECG 12-LEAD STAT 03/05/2019 12:35 Results for this AM PHARMACY GENERAL MANAGER procedure are i n the results section. ANTI XA, STAT 03/04/2019 7:48 Results for this UNFRACTIONATED PM PHARMACY GENERAL MANAGER procedure are in the results section. TROPONIN Timed 03/04/2019 3:29 Results for this PM PHARMACY GENERAL MANAGER procedure are i n the results section. TROPONIN Timed 03/04/2019 12:31 Results for this PM PHARMACY GENERAL MANAGER procedure are i n the results section. XR CHEST 1 VW STAT 03/04/2019 9:40 Results fo r this PORTABLE AM PHARMACY GENERAL MANAGER procedure are i n the results section. ESTIMATED GFR STAT 03/04/2019 9:35 Results fo r this AM PHARMACY GENERAL MANAGER procedure are i n the results section. BASIC METABOLIC PANEL STAT 03/04/2019 9:35 Re sults for this AM PHARMACY GENERAL MANAGER procedure are i n the results section. ANTI XA, STAT 03/04/2019 9:30 Results for this UNFRACTIONATED AM PHARMACY GENERAL MANAGER procedure are in the results section. B NATRIURETIC PEPTIDE STAT 03/04/2019 9:30 Re sults for this AM PHARMACY GENERAL MANAGER procedure are i n the results section. TROPONIN STAT 03/04/2019 9:30 Results for this AM PHARMACY GENERAL MANAGER procedure are i n the results section. PARTIAL STAT 03/04/2019 9:30 Results for this THROMBOPLASTIN TIME AM PHARMACY GENERAL MANAGER procedur e are in (PTT) the results section. PROTHROMBIN TIME WITH STAT 03/04/2019 9:30 Re sults for this INR AM PHARMACY GENERAL MANAGER procedure are i n the results section. HC COMPLETE BLD COUNT STAT 03/04/2019 9:30 Re sults for this W/AUTO DIFF AM PHARMACY GENERAL MANAGER procedure are i n the results section. ECG ED PRELIMINARY Routine 03/04/2019 9:17 Resul ts for this INTERPRETATION AM PHARMACY GENERAL MANAGER procedure are in the results section. AK CRITICAL CARE, E/M Routine 03/04/2019 9:17 Re sults for this 30-74 MINUTES AM PHARMACY GENERAL MANAGER procedure are in the results section. ECG 12-LEAD STAT 03/04/2019 9:17 Results for this AM PHARMACY GENERAL MANAGER procedure are i n the results section. after 12/27/2018 Results Us duplex hemodialysis avg avf access (12/25/2019 1:45 PM PHARMACY GENERAL MANAGER) Specimen Narrative Performed At [facility] [place] t - Fistula Report [id number] [facility], Medical Office Building [address], [address] [facility], [place] [address] Pat.Name: JULEE JEFFERSON Pat.ID: [id number] .Date: 12/25/2019 Refer.MD: CRAIG BARBOSA MD Exam Time: 1:10:00 PM Study Type:A V Graft - Fistula Height: 65in A ge: 1955,64Y Sex: FEMALE Sonogrp hr: LISA Fragoso, RVT Echo Event ID:[id number] Order ID: [id number] History / Clinical:DM, Anemia, CAD, Ольга nary stents, ESRD/on HD, Right upper chest dialysis catheter w/bandage, Left upper chest PPM Procedures: Colorflow, Grayscale/2D, Pul sed wave Doppler Race: C SUMMARY: DUPLEX SCAN OBSERVATIONS: Patent RIGHT Brachiobasilic AV fistula. Disturbance in color flow with elevated velocity at the mid upper arm. There is tortuosity present at this area which may be the ca use of the elevation, as no lesion is visualized. VOLUME FLOW: Brachial 1794 cc/min PRELIMINARY FINDINGS: 1. Patent RIGHT AV fistula without gabrielle nosis 2. Elevated velocity of the mid fistul a suggesting significant stenosis (Ratio 3.3), no intrinsic lesio n visualized PHYSICIAN INTERPRETATION: 1. Patent arteriovenous fistula without anastomotic stenosis. 2. Juxta-anastomotic stenosis > 50% (rat io 3.3) 3. Brachial artery volume flow 1794 cc/m in. FINDINGS: MEASUREMENTS: DOPPLER Axillary Artery Right Axillary 244 cm/s Right Axillary 112 cm/s Right Axillary 112 cm/s Right Axillary 159 ms Right Brachial Dist Brachial Dist P 399 cm/s Brachial Dist E 177 cm/s Brachial Artery Right Brachial 170 cm/s Right Brachial 161 cm/s Right Brachial 126 ms Right Brachial 160 ms Right Brachial Prox Brachial Prox P 331 cm/s Brachial Prox E 161 cm/s Mid Brach A Right Mid Brach 0.58 Right Mid Brach 174 cm/s Right Mid Brach 413 cm/s Right Mid Brach 172 ms Right Mid Brach 174 cm/s GRAFT Right Axillary A Dist Brachiobasilic:AV Fistula Axillary A Dist 244 cm/s Axillary A Dist 112 cm/s Right Brachial A Prox Brachiobasilic:AV Fistula Brachial A Prox 331 cm/s Brachial A Prox 161 cm/s Right Brachial A Mid Brachiobasilic:AV F istula Brachial A Mid 413 cm/s Brachial A Mid 174 cm/s Right Brachial A Dist Brachiobasilic:AV Fistula Brachial A Dist 400 cm/s Brachial A Dist 177 cm/s Right Anastomosis Brachiobasilic:AV Fist too Anast PSV 416 cm/s Anast EDV 218 cm/s Right 1 cm Central Brachiobasilic:AV Fis fredy 1 cm Central PS 222 cm/s 1 cm Central ED 69 cm/s Right 2 cm Central Brachiobasilic:AV Fis fredy 2 cm Central PS 169 cm/s 2 cm Central ED 84 cm/s Right 3 cm Central Brachiobasilic:AV Fis fredy 3 cm Central PS 551 cm/s 3 cm Central ED 255 cm/s Right Basilic Vn Gardner Brachiobasil ic:AV Fistula Basilic V Conf 228 cm/s Basilic V Conf 72 cm/s Right Axillary V Dist Brachiobasilic:AV Fistula Axillary V Dist 46 cm/s Axillary V Dist 18 cm/s Signed 12/26/2019 09:19 AM Craig Barbosa MD Procedure Note Interface, Radiology Results In - 2019 9:20 AM [facility] AV Graft - Fistula Report [id number] [facility], Medical Office [address], [address], [place], [place] [id number] Pat.Name: JULEE JEFFERSON Pat.I D: [id number] St.Date: 12/25/2019 Refer .MD: CRAIG BARBOSA MD Exam Time: 1:10:00 PM Study Type:AV Graft - Fistula Height: 65in Age: 8 1955,64Y Sex: FEMALE Sonog rphr: LISA Fragoso, RVT Echo Event ID:[id number] Order ID: [id number] History / Clinical:DM, Anemia, CAD, Ольга nary stents, ESRD/on HD, Right upper chest dialysis catheter w/bandage, Left upper chest PPM Procedures: Colorflow, Grayscale/2D, Pul sed wave Doppler Race: C SUMMARY: DUPLEX SCAN OBSERVATIONS: Patent RIGHT Brachiobasilic AV fistula. Disturbance in color flow with elevated velocity at the mid upper arm. There is tortuosity present at this area which may be the ca use of the elevation, as no lesion is visualized. VOLUME FLOW: Brachial 1794 cc/min PRELIMINARY FINDINGS: 1. Patent RIGHT AV fistula without sten osis 2. Elevated velocity of the mid fistula suggesting significant stenosis (Ratio 3.3), no intrinsic lesio n visualized PHYSICIAN INTERPRETATION: 1. Patent arteriovenous fistula without anastomotic stenosis. 2. Juxta-anastomotic stenosis > 50% (rat io 3.3) 3. Brachial artery volume flow 1794 cc/m in. FINDINGS: MEASUREMENTS: DOPPLER Axillary Artery Right Axillary 244 cm/s Righ t Axillary 112 cm/s Right Axillary 112 cm/s Righ t Axillary 159 ms Right Brachial Dist Brachial Dist P 399 cm/s Brac hial Dist E 177 cm/s Brachial Artery Right Brachial 170 cm/s Righ t Brachial 161 cm/s Right Brachial 126 ms Righ t Brachial 160 ms Right Brachial Prox Brachial Prox P 331 cm/s Brac hial Prox E 161 cm/s Mid Brach A Right Mid Brach 0.58 Righ t Mid Brach 174 cm/s Right Mid Brach 413 cm/s Righ t Mid Brach 172 ms Right Mid Brach 174 cm/s GRAFT Right Axillary A Dist Brachiobasilic:AV Fistula Axillary A Dist 244 cm/s Axil bart A Dist 112 cm/s Right Brachial A Prox Brachiobasilic:AV Fistula Brachial A Prox 331 cm/s Brac hial A Prox 161 cm/s Right Brachial A Mid Brachiobasilic:AV F istula Brachial A Mid 413 cm/s Brac hial A Mid 174 cm/s Right Brachial A Dist Brachiobasilic:AV Fistula Brachial A Dist 400 cm/s Brac hial A Dist 177 cm/s Right Anastomosis Brachiobasilic:AV Fist too Anast PSV 416 cm/s Anas t EDV 218 cm/s Right 1 cm Central Brachiobasilic:AV Fis fredy 1 cm Central PS 222 cm/s 1 cm Central ED 69 cm/s Right 2 cm Central Brachiobasilic:AV Fis fredy 2 cm Central PS 169 cm/s 2 cm Central ED 84 cm/s Right 3 cm Central Brachiobasilic:AV Fis fredy 3 cm Central PS 551 cm/s 3 cm Central ED 255 cm/s Right Basilic Vn Gardner Brachiobasil ic:AV Fistula Basilic V Conf 228 cm/s Basi lic V Conf 72 cm/s Right Axillary V Dist Brachiobasilic:AV Fistula Axillary V Dist 46 cm/s Axil bart V Dist 18 cm/s Signed 12/26/2019 09:19 AM Craig Barbosa MD Performing Organization Address City/[facility]/ZIP Code Phon e Number [facility] [id number] [place] [address] POC glucose (11/25/2019 3:36 PM CDT)Only the most recent of89 resultswithin the time period is included. Pathologist Sig nature POC glucose 106 (H) 65 - 99 mg/dL [facility] Comment: [facility] Evp General Counsel Name: Rovillos Ray Device ID: [id number] Specimen Blood Performing Organization Address City/[facility]/ZIP Code Phon e Number [facility] DEPARTMENT OF PATHOLOGY [address] [facility] [address] AND GENOMIC MEDICINE [facility] [address] [facility] [address] [facility] Peripheral Block (11/25/2019 12:13 PM CDT) Narrative Performed At Zachery Sin MD 11/25/2019 12:18 PM Peripheral Block Date/Time: 11/25/2019 12:01 PM Performed by: Zachery Sin MD Authorized by: Zachery Sin MD Patient Location: [facility] area Start Time: 11/25/2019 11:41 AM End Time: 11/25/2019 12:04 PM Staff: Anesthesiologist: Kofi Sin MD Resident/GEOMETRICIAN/AA: Sarah Soliz CRNA Performed by: Anesthesiologist Preprocedure: patient identified, IV lynn cked, site and side verified, risks and benefits discussed, procedure verified, surgical consent complete, patient position confirmed, mo nitors and equipment checked, pre-op evaluation complete, site marked and timeout performed prior to procedure Peripheral Nerve Block: Patient Position: Supine and sittin g Prep: ChloraPrep Monitoring: Blood pressure monitoring, continuous pulse oximetry and heart rate Block Type: Supraclavicular Laterality: Right Injection Technique: Single injection Procedures: ultrasound guided and nerve stimulator Ultrasound documentation: Printed/plac ed in chart Local Infiltration (See MAR for details) : Lidocaine Loss of Twitch: 0.4 mA Needle: Needle Type: Pajunk Needle Gauge: 21 G Needle Length: 10 cm Assessment: Injection Assessment: Visualized needle/local ane sthetic surrounding nerve, visualized pertinent vascular str uctures and nerves, needle tip visualized at all times during injection of medication, intermittent aspiration during local anesthetic admin istration and no symptoms of intraneural/intravenous injection Paresthesia Pain: None Heart Rate Change: No Slow Fractionated Injection: Yes Block outcome: No apparent complica tions and patient comfortable Notes: 5 ml of 2% lidocaine and 15 ml of 0. 5% Ropivacaine fractionated injections around the right brachial ner ve bundle localized with the Ultrasound and the nerve stimulator. Sub cutaneous injection of 10 cc of the 2% lidocaine above the right axilla. Medications Administered Ropivacaine 0.5 % PF (mL), 15 mL Estimated GFR (11/25/2019 10:00 AM CDT)Only the most recent of17 resultswithin the time period is included. Pathologist [facility] Estimated GFR 15 (A) mL/min/1.73 RICHARD COOPERIST Comment: m2 [place] Catergory Units Interpretation HOS PITAL G1 >=90 Normal or high G2 60-89 Mildly decreased G3a 45-59 Mildly to moderately decreas ed G3b 30-44 Moderately to severely decre ased G4 15-29 Severely decreased G5 <15 Kidney failure The eGFR was calculated using the Chronic Kidney Disea se Epidemiology Collaboration (CKD-EPI) equation. Interpretation is based on recommendations of the National Kidney Foundation-Kidney Disease Outcomes Royce lity Initiative (NKF-KDOQI) published in 2014. Specimen Performing Organization Address City/[facility] Phon e Number [facility] DEPARTMENT OF PATHOLOGY [address] [facility], [place] [address] AND GENOMIC MEDICINE [facility] [address] [facility], [place] [address] HOSPITAL Partial thromboplastin time, activated (11/25/2019 10:00 AM CDT)Only the most recent of3 resultswithin the time period is included. [facility] PTT 34.4 23.0 - 36.0 RICHARD CANELA Comment: sec [place] PTT therapeutic range for unfractionated heparin is HOSPITAL 61.0-112.0 seconds which corresponds to Anti-Xa 0.3-0.7 U/ml. Specimen Blood Performing Organization Address City/State/ZIP Code Phon e Number [facility] DEPARTMENT OF PATHOLOGY [address] [place] [address] X [address] [place] [address] HOSPITAL Prothrombin time with INR (11/25/2019 10:00 AM CDT)Only the most recent of3 resultswithin the time period is included. Prothrombin time 13.9 11.5 - 14.5 [facility] INR 1.1 [facility] Comment: [facility] Normalized Ratio (INR) is a [facility] monitoring tool for patients who are stable on oral anticoagulant therapy. An INR of 2.0-3.0 is suggested for deep vein thrombosis/pulmonary embolism. Specimen Blood Performing Organization Address City/[facility]/ZIP Code Phon e Number [facility] DEPARTMENT OF PATHOLOGY [address] [place] [address] [address] [place] [address] HOSPITAL Type and screen (11/25/2019 10:00 AM CDT)Only the most recent of4 resultswithin the time period is included. Pathologist Sig nature ABO grouping A [facility] Rh type POS [facility] Antibody screen (gel) NEG [facility] Specimen Blood Performing Organization Address City/[facility] Code Phon e Number [facility] DEPARTMENT OF PATHOLOGY [address] [place] [address] X [phone] X [address] HOSPITAL Comprehensive metabolic panel (11/25/2019 10:00 AM CDT) Pathologist Sig nature Sodium 138 135 - 148 mEq/L [facility] Potassium 4.3 3.5 - 5.0 mEq/L [facility] Chloride 103 98 - 112 mEq/L [facility] CO2 23 (L) 24 - 31 mEq/L [facility] Anion gap 12@ANIO 7 - 15 mEq/L [facility] BUN 33 (H) 8 - 23 mg/dL [facility] Creatinine 3.10 (H) 0.50 - 0.90 [facility] mg/dL [facility] Glucose 170 (H) 65 - 99 mg/dL [facility] Calcium 9.5 8.8 - 10.2 [facility] mg/dL [facility] Protein 7.8 6.3 - 8.3 g/dL [facility] Albumin 3.8 3.5 - 5.0 g/dL [facility] A/G ratio 1.0 0.7 - 3.8 [facility] Alkaline phosphatase 106 (H) 35 - 104 U/L [facility] AST 20 10 - 35 U/L [facility] ALT 9 5 - 50 U/L [facility] Total bilirubin 0.3 0.2 - 1.2 mg/dL [facility] Specimen Blood Performing Organization Address City/[facility] Phon e Number [facility] DEPARTMENT OF PATHOLOGY [address] [facility] X [address] AND GENOMIC MEDICINE [facility] [address] [facility] X [address] HOSPITAL XR Chest 2 Vw (11/20/2019 6:33 PM CDT)Only the most recent of2 resultswithin the time period is included. Specimen Narrative Performed At EXAMINATION: XR CHEST 2 VW [facility] CLINICAL HISTORY: Z01.818 Encounter for other prepro cedural examination, Routine CXR pre-op high-r isk surgery, Pre OP Testing COMPARISON: Chest x-ray 07/25/2019 IMPRESSION: Single frontal view reveals stable promine nce of cardiac silhouette and pulmonary vasculature with right-sided hemodialysis catheter and left AICD/pacemaker in place. Lungs witho ut a consolidative process. Remainder of the examination is unchanged. [facility]-[id number] Procedure Note Interface, Radiology Results Incoming - 11/20/2019 6:46 PM CDT EXAMINATION: XR CHEST 2 VW CLINICAL HISTORY: Z01.818 Encounter for other preprocedural examination,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 Information Relations Manager: None Anesthesia/Sedation: Level of anesthesia: None (IV pain medic ation and lidocaine) Medications used: Fentanyl only, 1% Lido durga Radiation exposure: 11 mGy Estimate blood loss: <5 mL Blood adminis tered: None Complications: None Implants/Grafts: 14.5 Micronesian 19 cm cuffe d tunneled dialysis catheter Specimen: None Procedure: Informed consent was obtained and the patient position ed supine in the fluoroscopy suite. A timeout was performed, followed b y preliminary ultrasound of the right internal jugular vein (see tori lopez below). The right neck and chest were prepped and draped in standard sterile fashion. Using real-time ultrasound guidance a 21 gauge vascu lar needle was used to access the right internal jugular vein. An i mage was stored in the electronic medical record. A wire was advanced int o the IVC under fluoroscopy and the needle exchanged for a peel-away sheath. A skin incision was made inferior to the clavicle and the catheter tunneled to the venous access site. The catheter was t hen deployed through the peel-away sheath and positioned with the t ip at the superior atriocaval junction/right atrium. At the end of the procedure the catheter was flushed, packed with heparin solution, secured to the skin and a sterile dr essing applied. The patient tolerated the procedure well and without i mmediate complication. Findings: Patent right internal jugular vein as demonstrated by normal ultrasound compressibility. Impression: Successful placement of a tunneled right internal jugu lar vein dialysis catheter under moderate sedation. Procedure Note Interface, Radiology Results Incoming - 03/14/2019 4:43 PM PHARMACY GENERAL MANAGER Tunneled Dialysis Catheter Placement Pre-Procedure Diagnosis: Chronic kidney disease Post-procedure Diagnosis:Chronic kidney disease Evp General Counsel: Ramakrishna Araujo Public Information Relations Manager: None Anesthesia/Sedation: Level of anesthesia: None (IV pain medic ation and lidocaine) Medications used: Fentanyl only, 1% Lido durga Radiation exposure: 11 mGy Estimate blood loss: <5 mL Blood adminis tered: None Complications: None Implants/Grafts: 14.5 Micronesian 19 cm cuffe d tunneled dialysis catheter Specimen: None Procedure: Informed consent was obtained and the pa tient positioned supine in the fluoroscopy suite. A timeout was performed, followed by preliminary ultrasound of the right internal jugular vein (see findings below). The right neck and chest were prepped and draped in standard sterile fashion. Using real-time ultrasound guidance a 21 gauge vascular needle was used to access the right internal jugular vein. An image was stored in the electronic medical record. A wire was advanced into the IVC under fluoroscopy and the needle exchanged for a peel-away sheath. A skin incision was made inferior to the clavicle and the catheter tunneled to the venous access site. The catheter was then deployed through the peel-away sheath and positioned with the tip at the superior atriocaval junction/right atrium. At the end of the procedure the catheter was flushed, packed with heparin solution, secured to the skin and a sterile dressing applied. The patient tolerated the procedure well and without immediate complication. Findings: Patent right internal jugular vein as de monstrated by normal ultrasound compressibility. Impression: Successful placement of a tunneled right internal jugular vein dialysis catheter under moderate sedation. Performing Organization Address City/State/ZIP Code Phon e Number [facility] [address] [place] [phone] Phosphorus level (03/14/2019 12:00 AM PHARMACY GENERAL MANAGER)Only the most recent of3 resultswithin the time period is included. Pathologist Sig nature Phosphorus 3.3 2.4 - 4.5 mg/dL [facility] Specimen Plasma specimen Performing Organization Address [facility] Phon e Number [facility] DEPARTMENT OF PATHOLOGY AND [address] [place] [address] [phone] [address] Magnesium level (03/14/2019 12:00 AM PHARMACY GENERAL MANAGER)Only the most recent of7 resultswithin the time period is included. Pathologist Sig nature Magnesium 2.1 1.6 - 2.4 mg/dL [facility] Specimen Plasma specimen Performing Organization Address [facility] Phon e Number [facility] DEPARTMENT OF PATHOLOGY AND [address] [place] [address] [phone] [address] Ionized calcium (03/14/2019 12:00 AM PHARMACY GENERAL MANAGER) Pathologist Sig nature pH 7.65 [facility] Ionized calcium 0.86 (L) 1.11 - 1.32 [facility] mmol/L HOSPITAL Specimen Plasma specimen Performing Organization Address [facility] Phon e Number [facility] DEPARTMENT OF PATHOLOGY AND [address] [place] [address] [phone] [address] CBC hemogram (03/13/2019 1:45 AM PHARMACY GENERAL MANAGER)Only the most recent of2 resultswithin the time period is included. Pathologist Sig nature WBC 4.39 (L) 4.50 - 11.00 k/uL [facility] RBC 2.97 (L) 4.20 - 5.50 m/uL [facility] HGB 9.1 (L) 12.0 - 16.0 g/dL [facility] HCT 29.2 (L) 37.0 - 47.0 % [facility] MCV 98.3 82.0 - 100.[address] [facility] MCH 30.6 27.0 - 34.[address] [facility] MCHC 31.2 31.0 - 37.0 g/dL [facility] RDW - SD 59.0 (H) 37.0 - 55.[address] [facility] MPV 11.2 8.8 - 13.[address] [facility] Platelet count 141 (L) 150 - 400 k/uL [facility] Nucleated RBC 0.70 /[address] [facility] Specimen Blood Performing Organization Address City/[facility]/ZIP [facility] Phon e Number [facility] DEPARTMENT OF PATHOLOGY AND [address] [place] [phone] Arterial blood gas (03/12/2019 5:58 AM PHARMACY GENERAL MANAGER)Only the most recent of4 results within the time period is included. Pathologist Sig nature pH, arterial 7.39 7.35 - 7.45 [facility] pCO2, arterial 40 35 - [address] [facility] pO2, arterial 73 (L) 80 - [address] [facility] Bicarbonate, 23.7 21.0 - 28.0 [facility] mmol/L HOSPITAL Base excess, -1 -2 - 2 mEq/L [facility] [place] O2 saturation, 95 95 - 100 % [facility] [place] Specimen Blood Performing Organization Address [facility] Phon e Number [facility] DEPARTMENT OF PATHOLOGY AND [address] [place] [address] [address] Ionized calcium, arterial (03/11/2019 1:34 PM PHARMACY GENERAL MANAGER)Only the most recent of3 resultswithin the time period is included. Pathologist Sig nature Ionized calcium, 1.11 1.11 - 1.32 [facility] mmol/L [facility] Specimen Blood Performing Organization Address City/[facility] Phon e Number [facility] DEPARTMENT OF PATHOLOGY AND [address] [place] [address] [phone] [address] Activated clotting time (03/11/2019 11:50 AM PHARMACY GENERAL MANAGER)Only the most recent of3 resultswithin the time period is included. Activated clotting 121 96 - [address] [facility] [place] Comment: HOSPITAL Evp General Counsel Name: Katishon Stephen Device ID: [id number] Specimen Performing Organization Address City/[facility]/ZIP [facility] Phon e Number [facility] DEPARTMENT OF PATHOLOGY AND [address] [place] [phone] Sodium level, syringe (03/11/2019 11:14 AM PHARMACY GENERAL MANAGER)Only the most recent of2 results within the time period is included. Pathologist Sig nature Sodium, syringe 135 135 - 148 mEq/L [facility] Specimen Blood Performing Organization Address [facility] Phon e Number [facility] DEPARTMENT OF PATHOLOGY AND [address] [place] [phone] Potassium, syringe (03/11/2019 11:14 AM PHARMACY GENERAL MANAGER)Only the most recent of2 results within the time period is included. Pathologist Sig nature Potassium, syringe 4.8 3.5 - 5.0 mEq/L [facility] Blood Performing Organization Address [facility] Phon e Number [facility] DEPARTMENT OF PATHOLOGY AND [address] [place] [phone] Lactic acid, syringe (03/11/2019 11:14 AM PHARMACY GENERAL MANAGER) Pathologist Sig nature Lactic acid, syringe 2.0 0.5 - 2.2 mmol/L [facility] Specimen Blood Performing Organization Address [facility] Phon e Number [facility] DEPARTMENT OF PATHOLOGY AND [address] [place] [phone] Hemoglobin, syringe (03/11/2019 11:14 AM PHARMACY GENERAL MANAGER)Only the most recent of2 results within the time period is included. Pathologist Sig nature Hemoglobin, syringe 9.7 (L) 12.0 - 16.0 g/dL [facility] Specimen Blood Performing Organization Address City/[facility] Phon e Number [facility] DEPARTMENT OF PATHOLOGY AND [address] [place] [address] Glucose level, syringe (03/11/2019 11:14 AM PHARMACY GENERAL MANAGER)Only the most recent of2 results within the time period is included. Pathologist Sig nature Glucose, syringe 238 (H) 65 - 99 mg/dL [facility] Specimen Blood Performing Organization Address City/State/ZIP Code Phon e Number [facility] DEPARTMENT OF PATHOLOGY AND [address] [place], [place] [phone] [facility] [address] [place] [address] Transfuse RBC (03/11/2019 10:31 AM PHARMACY GENERAL MANAGER)Only the most recent of2 resultswithin the time period is included.RASHEL (03/11/2019 9:06 AM PHARMACY GENERAL MANAGER) Narrative Performed At Zohaib Lackey MD 03/11/2019 9:10 AM Procedure Performed: RASHEL Start Time: End Time: Preanesthesia Checklist: Patient identified, IV assessed, risks a nd benefits discussed, monitors and equipment assessed, procedure being performed at surgeon's request, anesthesia consent obtained. General Procedure Information Diagnostic Indications for Echo: hemod ynamic monitoring Physician Requesting Echo: Kaiden Peter MD Location performed: OR Intubated Bite block not placed Heart visualized Probe Insertion: Easy Probe Type: Multiplane Modalities: 2D only, color flow mappin g, continuous wave Doppler and contrast Echocardiographic and Doppler Measuremen ts Ventricles Right Ventricle: Cavity size normal. Hypertrophy not present. Throm bus not present. Global function moderately impaired. E jection Fraction 30%. Left Ventricle: Cavity size dilated. Hypertrophy present. Thrombus not present. Global Function moderately impaired. Ejection Fraction 30%. Valves Aortic Valve: Annulus normal. Stenosis not present. Regurgitation +1. Leaflets normal. Leaflet motions normal. Mitral Valve: Annulus calcified. Stenosis not present. Regurgita tion +3. Leaflets thickened. Leaflet motions normal. Tricuspid Valve: Annulus normal. Stenosis not present. Regurgitation +2. Leaflets normal. Leaflet motions normal. Aorta Ascending Aorta: Size normal. Dissection not present. Plaque thickn ess less than 3 mm. Mobile plaque not present. Aortic Arch: Size normal. Dissection not present. Plaque thickn ess less than 3 mm. Mobile plaque not present. Descending Aorta: Size normal. Dissection not present. Plaque thickn ess less than 3 mm. Mobile plaque not present. Atria Right Atrium: Size normal. Spontaneous echo contrast not present. Thrombus not present. Tumor not present. Device n ot present. Left Atrium: Size normal. Spontaneous echo contrast not present. Thrombus not present. Tumor not present. Device n ot present. Septa Atrial Septum: Intra-atrial septal morphology normal. Ventricular Septum: Intra-ventricular septum morphology norm al. Other Findings Pericardium: normal Pleural Effusion: none Anesthesia Information Performed Personally Anesthesiologist: Cj Shelton MD Central line (03/11/2019 9:05 AM PHARMACY GENERAL MANAGER) Narrative Performed At Zohaib Lackey MD 03/11/2019 9:06 AM Central line Performed by: Zohaib Lackey MD Authorized by: Cj Shelton MD Patient Location: OR Staff: Anesthesiologist: Cj Shelton MD Resident/GEOMETRICIAN/AA: Zohaib Lackey MD Performed by: Resident/GEOMETRICIAN/AA Preprocedure:patient identified, IV checked, site and side verified, risks and benefits discussed, procedure verifi ed, surgical consent complete, patient position confirmed, monitors and equipment checked and pre-op evaluation complete MSBT: antiseptic used during central vickey ous catheter insertion, all elements of maximal sterile barrier tech nique followed, hand hygiene performed prior to central venous cathet er insertion, cap/gown used by other personnel during central venous ca theter insertion, solutions labeled and all ports not used during in sertion clamped Indications: Indications: Vascular access Anesthesia: Anesthesia: General Procedure details: Patient position: Trendelenburg Catheter Type: Double lumen Catheter Size: 9 Fr Catheter Site: internal jugular vein Catheter site laterality: Right Pre-procedure: Landmarks identified Ultrasound guidance used: Yes Ultrasound image saved: Yes Number of attempts: 1 Successful placement: Yes Guidewire removal: Guidewire removal is confirmed Post-procedure: Post-procedure: line sutured and sterile dressing a pplied per protocol Post-procedure: Blood cleaned with CHG and sterile caps on all hubs Assessment: Blood return through al l ports and free fluid flow Patient tolerance: Patient tolerate d the procedure well with no immediate complications Arterial line (03/11/2019 9:05 AM PHARMACY GENERAL MANAGER) Narrative Performed At Zohaib Lackey MD 03/11/2019 9:05 AM Arterial line Performed by: Zohaib Lackey MD Authorized by: Cj Shelton MD Patient Location: OR Staff: Anesthesiologist: Cj Shelton MD Resident/GEOMETRICIAN/AA: Zohaib Lackey MD Performed by: Resident/GEOMETRICIAN/AA Pre-procedure: patient identified, IV ch ecked, site and side verified, risks and benefits discussed, procedure verified, surgical consent complete, patient position confirmed, monitors and equ ipment checked and pre-op evaluation complete MSBT: antiseptic used, all elements of maximal sterile barrier technique followed, hand hygiene performed, cap/go wn used by other personnel and solutions labeled Indications: Indications: multiple ABGs and hemody namic monitoring Anesthesia: Anesthesia: General Procedure Details: Arterial Line placement: Placed pos t induction Line placement site: Radial Line placement side: Right Arterial line gauge: 20 G Number of attempts: 1 Ultrasound guidance used: Yes Post-procedure: Post-procedure: Sterile dressing ap plied Post procedure circulation, sensation, movement: Normal and unchanged Patient tolerance: Patient tolerate d the procedure well with no immediate complications Airway (03/11/2019 9:04 AM PHARMACY GENERAL MANAGER) Narrative Performed At Zohaib Lackey MD 03/11/2019 9:04 AM Airway Performed by: Zohaib Lackey MD Authorized by: Cj Shelton MD Location: OR Difficult Airway: No Anesthesiologist: Cj Shelton MD Performed by: anesthesiologist Preoxygenated with 100% O2: Yes C-spine Precautions Maintained Throughou t: Yes Mask Ventilation: Easy mask Final Airway Type: Endotracheal airway Final Endotracheal Airway: ETT - doubl e lumen left Blade Type: Lal Laryngoscope Blade/Videolaryngoscope Manas de Size: 2 ETT Double Lumen (fr): 37 Placement Verified by: CO2 detection, direct visualiza tion and fiber optic visualization Rapid Sequence Induction (RSI): No Modified RSI: No Number of Attempts at Approach: 1 Arterial blood gas, corrected (03/11/2019 8:30 AM PHARMACY GENERAL MANAGER) Pathologist Sig nature pH, arterial 7.44 7.35 - 7.45 [facility] pCO2, arterial 32 (L) 35 - [address] [facility] pO2, arterial 250 (H) 80 - [address] [facility] Temperature, Celsius 37.[address] [facility] O2 saturation, 100 95 - 100 % [facility] [place] pH, arterial 7.44 [facility] pCO2, arterial 32 mmHg [facility] pO2, arterial 250 mmHg [facility] Base excess, arterial -2 -2 - 2 mEq/L [facility] Specimen Blood Performing Organization Address [facility] Phon e Number [facility] DEPARTMENT OF PATHOLOGY AND [address] [place] [address] [phone] [address] Prepare RBC (03/11/2019 7:59 AM PHARMACY GENERAL MANAGER) Product name Red Blood Cells [facility], [facility]uk[facility] Unit number [id number] [facility] Product code [id number] [facility] Dispense status Transfused [facility] Blood expiration date [facility] Blood type code 6200 [facility] Blood type A POSITIVE [facility] Compatibility Compatible [facility] Product name Red Blood Cells [facility], [facility] Unit number [id number] [facility] Product code [id number] [facility] Dispense status Transfused [facility] Blood expiration date [facility] Blood type code 6200 [facility] Blood type A POSITIVE [facility] Compatibility Compatible [facility] Specimen Performing Organization Address [facility] Phon e Number [facility] DEPARTMENT OF PATHOLOGY AND [address] [place] [address] [phone] [address] Thyroid stimulating hormone (03/10/2019 4:00 AM PHARMACY GENERAL MANAGER)Only the most recent of2 resultswithin the time period is included. Pathologist Sig nature TSH 1.00 0.27 - 4.20 uIU/mL [facility] Specimen Plasma specimen Performing Organization Address [facility] Phon e Number [facility] DEPARTMENT OF PATHOLOGY AND [address] [place] [address] [phone] [address] T4, free (03/10/2019 4:00 AM PHARMACY GENERAL MANAGER) Pathologist Sig nature T4, free 1.4 0.9 - 1.7 ng/dL [facility] L Specimen Plasma specimen Performing Organization Address [facility] Phon e Number [facility] DEPARTMENT OF PATHOLOGY AND [address] [place] [address] [phone] [address] Hepatic function panel (03/10/2019 4:00 AM PHARMACY GENERAL MANAGER) Albumin 2.7 (L) 3.5 - 5.0 g/dL [facility] Total bilirubin 0.4 0.0 - 1.2 [facility] mg/dL [facility] Bilirubin direct <0.2 0.0 - 0.3 [facility] mg/dL [facility] Alkaline phosphatase 57 35 - 104 U/L [facility] Protein 7.5 6.3 - 8.3 g/dL [facility] Comment: HOSPITAL Cjnkxga0884.6-7.0 g/dL 1 uhcw7242.4-7.6 g/dL 7 months-9jdfy149.1-7.3 g/dL 1-2 omzmg043.6-7.5 g/dL >3 .0-8.0 g/dL 18-3825312.3-8.3 g/dL ALT 28 5 - 50 U/L [facility] AST 89 (H) 10 - 35 U/L [facility] Specimen Plasma specimen Performing Organization Address City/State/[facility] Code Phon e Number [facility] DEPARTMENT OF PATHOLOGY AND [address] [place] [phone] GENOMIC MEDICINE [address] [address] Lipid panel (03/10/2019 4:00 AM PHARMACY GENERAL MANAGER) Pathologist [facility] Cholesterol 178 <200 mg/dL [facility] Triglycerides 172 (H) <150 mg/dL [facility] HDL cholesterol 42 >40 mg/dL [facility] LDL cholesterol 103 (H)Comment: <100 mg/dL [facility] Result obtained by [facility] measurement Lipid panel [facility] interpretation Comment: GNOSTICIST Total Cholesterol (mg/dL) HOSPIT [place] <200 Desirable 200-239 Borderline-high >=240 High Triglycerides (mg/dL) <150 Normal 150-199 Borderline-high 200-499 High >=500 Very high HDL Cholesterol (mg/dL) <40 Low (male) <40 Low (female) LDL Cholesterol (mg/dL) <100 Optimal 100-129 Near or above optimal 130-159 Borderline-high 160-189 High >=190 Very high Risk Catergories that modify LDL goals. Risk Catergories LDL goal (mg/d L) CHD and CHD risk equivalent <100 (10-year risk >20%) Multiple (2+) risk factors <130 (10-year risk =<20%) 0-1 risk factors <160 (<10-year risk) Defining levels of lipids in metabolic syndrome Triglycerides >=150 mg/dL HDL Cholesterol Men <40 mg /dL Women <40 mg/ dL Non-HDL cholesterol is a second target for therapy in persons with high triglycerides (>=200 mg/dL) Specimen Plasma specimen Performing Organization Address City/State/ZIP Code Phon e Number [facility] DEPARTMENT OF PATHOLOGY AND [address] [place] [address] [phone] [facility] [address] [place] [address] HEMODIALYSIS CATHETER PLACEMENT (03/08/2019 10:42 PM PHARMACY GENERAL MANAGER) Narrative Performed At Gail Evans MD 03/08/2019 10:44 P M Hemodialysis catheter placement Date/Time: 03/08/2019 10:42 PM Performed by: Gail Evans MD Authorized by: Dayne Patterson MD Consent: Consent obtained: Written Consent given by: Patient Risks discussed: Arterial puncture, incorrect bobby cement, infection, bleeding, nerve damage and pneumothorax Alternatives discussed: No treatmen t [place] protocol: Procedure explained and questions ans wered to patient or proxy's satisfaction: yes Relevant documents present and verifi ed: yes Test results available and properly l abeled: yes Imaging studies available: yes Required blood products, implants, de vices, and special equipment available: yes Site/side marked: yes Immediately prior to procedure, a ho guerrero out was called: yes Patient identity confirmed: Provide d demographic data, hospital-assigned identification number and verbally with patient Pre-procedure details: Indication: Vascular access for HD Hand hygiene: Hand hygiene performed prior to insertion Sterile barrier technique: All elemen ts of maximal sterile technique followed Skin preparation: ChloraPrep Anesthesia (see MAR for exact dosages): Anesthesia method: Local infiltrati on Local anesthetic: Lidocaine 1% w/o epi Procedure details: Procedure supplies: Temporary dialy sis catheter Catheter size: 24 Catheter Site Laterality: Right Post-procedure details: Post-procedure: Dressing applied an d line sutured Patient tolerance of procedure: Juan Diego erated well, no immediate complications Smear review (03/07/2019 4:45 AM PHARMACY GENERAL MANAGER) Platelet slide review Decreased (A) [facility] Anisocytosis Moderate [facility] Ovalocytes Moderate [facility] Specimen Performing Organization Address City/[facility] Phon e Number [facility] DEPARTMENT OF PATHOLOGY AND [address] [place] [address] [phone] [address] B natriuretic peptide (03/07/2019 4:45 AM PHARMACY GENERAL MANAGER)Only the most recent of4 results within the time period is included. Pathologist Sig nature BNP 961 (H) 0 - 100 pg/mL [facility] Specimen Blood Performing Organization Address City/[facility] Phon e Number [facility] DEPARTMENT OF PATHOLOGY AND [address] [place] [address] [phone] [address] Venous blood gas (03/07/2019 4:45 AM PHARMACY GENERAL MANAGER) Pathologist Sig nature pH, venous 7.30 (L) 7.32 - 7.42 [facility] pCO2, venous 42 (L) 45 - [address] [facility] pO2, venous 39 25 - [address] [facility] Base excess, venous -5 (L) -2 - 2 meq/L [facility] O2 saturation, 70 40 - 70 % [facility] Bicarbonate, venous 20.2 (L) 21.0 - 28.0 [facility] mmol/L HOSPITAL Specimen Blood Performing Organization Address City/[facility] Phon e Number [facility] DEPARTMENT OF PATHOLOGY AND [address] [place] [address] [phone] [address] Urinalysis screen and microscopy, with reflex to culture (03/07/2019 1:00 AM PHARMACY GENERAL MANAGER)Only the most recent of2 resultswithin the time period is included. Specimen site Catheterized [facility] Color, UA Yellow [facility] Appearance, UA Cloudy [facility] Specific gravity, UA 1.014 1.001 - 1.035 [facility] pH, UA 5.0 5.0 - 8.5 [facility] Protein, UA 2+ (A) Negative [facility] Glucose, UA 3+ (A) Negative [facility] Ketones, UA Negative Negative [facility] Bilirubin, UA Negative Negative [facility] Blood, UA Negative Negative [facility] Nitrite, UA Negative Negative [facility] Urobilinogen, UA <2.[address] [facility] Leukocyte esterase, Small (A) Negative [facility] Epithelial cells, UA 2 /HPF [facility] WBC, UA 8 (H) 0 - 4 /HPF [facility] RBC, UA 1 0 - 5 /HPF [facility] Bacteria, UA Few None seen [facility] Yeast, UA None seen [facility] Yeast with None seen [facility] pseudohyphae, HOSPITAL Amorphous crystals Few [facility] Specimen Urine Performing Organization Address City/State/ZIP Code Phon e Number [facility] DEPARTMENT OF PATHOLOGY AND [address] [place], [place] [phone] [facility] [address] [place] [address] Us carotid duplex (03/06/2019 3:45 PM PHARMACY GENERAL MANAGER) Specimen Narrative Performed At [facility] Carotid A rtery Duplex Report [address] [facility], [facility] [address], [place] [id number] For air quality specialist purposes, the categorization of the degree of the stenosis of this exam is based on criteria described i n the IAC carotid stenosis grading white paper( www.intersocietal.org/Va scular) and Sruthi Sauceda., Delmis Avila., et al. Carotid artery stenosis: adams-scale and Doppler US diagnosis-- Society of Radiologists in Ultrasound Consensus Conference. Radio logy. 2002; 229(2):340-6. Pat.Name: JULEE JEFFERSON Pat.ID: [id number] .Date: 03/06/2019 Refer.MD: SANJAY KEBEDE MD Exam Time: 3:12:00 PM Study Type:C arotid Height: 65in Weight: 183lb BSA: 1.91 m2 Ag e: 1955,63Y Sex: FEMALE BP: 122/57 Sonogrphr: Ana Feliz RDCS, RVT Pat. Stat.:Inpatient Room: A Tape Vo l: ED, CPT - 4: 96059 Echo Radha nt ID:[id number] Order ID: [id number] Reason for Study:Carotid disease Procedures: Colorflow, Grayscale/2D, Pul sed wave Doppler Race: C SUMMARY: PHYSICAL ASSESSMENT Blood Pulses Carotid Pressure Carotid Temporal Br uit Right 122/57 + + 0 Left IV + + 0 CAROTID ARTERY SCAN RIGHT: There is hard plaque in the com mon carotid artery. There is hard plaque noted in the bulb extending into the proximal internal carotid and ostia of the external caroti d artery. Colorflow is normal. LEFT: There is hard plaque in the common carotid artery. There is hard plaque noted in the bulb extending into the proximal internal and external carotid artery. Colorflow is no rmal. PRELIMINARY FINDINGS 1. <50% stenosis in the bulb and int ernal carotid artery, bilaterally. 2. <50% stenosis in the external carotid artery, bilaterally. 3. Antegrade vertebral artery flow bilat erally. PHYSICIAN INTERPRETATION Bilateral carotid duplex examination dem onstrated atherosclerotic plaques in the bulbs/ CCAs. Less than 50% stenosis in the bulb and i nternal carotid artery, bilaterally. Increased IMT in the CCAs. Both vertebral arteries are antegrade. FINDINGS: Carotid Findings: Right Left Verteb.Flw Antegrade Antegrade Subclavian Triphasic Triphasic MEASUREMENTS: DOPPLER Left CCA Dist CCA Dist PSV 91.1 cm/s CCA Dist EDV 29.9 cm/s Left CCA Mid CCA Mid PSV 97.4 cm/s CCA Mid EDV 27.5 cm/s Left CCA Prox CCA Prox PSV 93.5 cm/s CCA Prox EDV 23.6 cm/s Left ICA Dist ICA Dist PSV 90.4 cm/s ICA Dist EDV 27.5 cm/s Left ICA Mid ICA Mid PSV 114 cm/s ICA Mid EDV 31.4 cm/s Left ICA Prox ICA Prox PSV 116 cm/s ICA Prox EDV 35.4 cm/s Left ECA Prox ECA Prox PSV 114 cm/s ECA Prox EDV 13.4 cm/s Left SCA Prox SCA Prox PSV 147 cm/s Left Vertebral Vertebral PSV 64.5 cm/s Vertebral EDV 18.8 cm/s Right CCA Dist CCA Dist PSV 80.3 cm/s CCA Dist EDV 19.3 cm/s Right CCA Mid CCA Mid PSV 75 cm/s CCA Mid EDV 16.4 cm/s Right CCA Prox CCA Prox PSV 67.4 cm/s CCA Prox EDV 18.2 cm/s Right ICA Dist ICA Dist PSV 86.8 cm/s ICA Dist EDV 24.6 cm/s Right ICA Mid ICA Mid PSV 96.2 cm/s ICA Mid EDV 27.6 cm/s Right ICA Prox ICA Prox PSV 124 cm/s ICA Prox EDV 29.9 cm/s Right ECA Prox ECA Prox PSV 128 cm/s ECA Prox EDV 7.07 cm/s Right SCA Prox SCA Prox PSV 120 cm/s Right Vertebral Vertebral PSV 52.3 cm/s Vertebral EDV 11.4 cm/s Right ICA/CCA Ratio ICA/CCA PSV 1.65 Left ICA/CCA Ratio ICA/CCA PSV 1.19 Signed 03/07/2019 08:08 AM Alphonse Hurley MD, RPVI Procedure Note Interface, Radiology Results In - 2019 8:08 AM [facility] Vascular Ultrasound Laboratory Carotid Artery Dupl ex Report [address] [place] [address] For air quality specialist purposes, the vero gorization of the degree of the stenosis of this exam is based on criteria described in the IAC carotid stenosis grading white paper( www.intersocietal.org/Vascular) and Sruthi Sauceda., Delmis Avila., et al. Carotid artery stenosis: adams-scale and Doppler US diagnosis--Society of Radiologists in Ultrasound Consensus Conference. Radiology. 2003 Nov; 229(2):340-6. Pat.Name: JULEE JEFFERSON Pat.I D: [id number] .Date: 03/06/2019 Refer .MD: SANJAY KEBEDE MD Exam Time: 3:12:00 PM Study Type:Carotid Height: 65in Weigh t: 183lb BSA: 1.91 m2 Age: 7 1955,63Y Sex: FEMALE BP: 122/57 Sonogrphr: Ana Feliz, CHRISTIANOCS, RVT Pat. Stat.:Inpatient Room: [place] [address] A Tape Vol: ED, CPT - 4: 03160 Echo Event ID:[id number] Order ID: [id number] Reason for Study:Carotid disease Procedures: Colorflow, Grayscale/2D, Pul sed wave Doppler Race: C SUMMARY: PHYSICAL ASSESSMENT Blood Pulses Caroti d Pressure Carotid Temporal Bruit Right 122/57 + + 0 Left IV + + 0 CAROTID ARTERY SCAN RIGHT: There is hard plaque in the comm on carotid artery. There is hard plaque noted in the bulb extending into the proximal internal carotid and ostia of the external caroti d artery. Colorflow is normal. LEFT: There is hard plaque in the co mmon carotid artery. There is hard plaque noted in the bulb extending into the proximal internal and external carotid artery. Colorflow is no rmal. PRELIMINARY FINDINGS 1. <50% stenosis in the bulb and inter nal carotid artery, bilaterally. 2. <50% stenosis in the external carotid artery, bilaterally. 3. Antegrade vertebral artery flow bilat erally. PHYSICIAN INTERPRETATION Bilateral carotid duplex examination dem onstrated atherosclerotic plaques in the bulbs/ CCAs. Less than 50% stenosis in the bulb and i nternal carotid artery, bilaterally. Increased IMT in the CCAs. Both vertebral arteries are antegrade. FINDINGS: Carotid Findings: Right Left Verteb.Flw Antegrade Antegrade Subclavian Triphasic Triphasic MEASUREMENTS: DOPPLER Left CCA Dist CCA Dist PSV 91.1 cm/s CCA Dist EDV 29.9 cm/s Left CCA Mid CCA Mid PSV 97.4 cm/s CCA Mid EDV 27.5 cm/s Left CCA Prox CCA Prox PSV 93.5 cm/s CCA Prox EDV 23.6 cm/s Left ICA Dist ICA Dist PSV 90.4 cm/s ICA Dist EDV 27.5 cm/s Left ICA Mid ICA Mid PSV 114 cm/s ICA Mid EDV 31.4 cm/s Left ICA Prox ICA Prox PSV 116 cm/s ICA Prox EDV 35.4 cm/s Left ECA Prox ECA Prox PSV 114 cm/s ECA Prox EDV 13.4 cm/s Left SCA Prox SCA Prox PSV 147 cm/s Left Vertebral Vertebral PSV 64.5 cm/s Vert ebral EDV 18.8 cm/s Right CCA Dist CCA Dist PSV 80.3 cm/s CCA Dist EDV 19.3 cm/s Right CCA Mid CCA Mid PSV 75 cm/s CCA Mid EDV 16.4 cm/s Right CCA Prox CCA Prox PSV 67.4 cm/s CCA Prox EDV 18.2 cm/s Right ICA Dist ICA Dist PSV 86.8 cm/s ICA Dist EDV 24.6 cm/s Right ICA Mid ICA Mid PSV 96.2 cm/s ICA Mid EDV 27.6 cm/s Right ICA Prox ICA Prox PSV 124 cm/s ICA Prox EDV 29.9 cm/s Right ECA Prox ECA Prox PSV 128 cm/s ECA Prox EDV 7.07 cm/s Right SCA Prox SCA Prox PSV 120 cm/s Right Vertebral Vertebral PSV 52.3 cm/s Vert ebral EDV 11.4 cm/s Right ICA/CCA Ratio ICA/CCA PSV 1.65 Left ICA/CCA Ratio ICA/CCA PSV 1.19 Signed 03/07/2019 08:08 AM Alphonse Hurley MD, RPVI Performing Organization Address City/State/ZIP Code Phon e Number [facility] [address] [address] Echocardiogram complete w contrast and 3D if needed (03/06/2019 3:29 PM PHARMACY GENERAL MANAGER) Specimen Narrative Performed At [facility] Echo cardiography Report [id number] [facility], [address], [place] [address] Pat.Name: JULEE JEFFERSON Pat.ID: [id number]Date: 03/06/2019 Refer.MD: SANJAY KEBEDE MD Exam Time: 2:29:00 PM Study Type:R outine Echo Height: 65in Weight: 183lb BSA: 1.91 m2 Ag e: 1955,63Y Sex: FEMALE BP: 138/64 HR: 66 bpm Sonogrphr: Cheyenne Diez RDCS, MEGHANT Pat. Stat.:Inpatient Room: [id number] Study Status:Final Echo Event ID:[id number] Order ID: [id number] Reason for Study:Arrhythmias - Sustained or nonsustained atrial fibrillation, SVT, or VT; Assess LV func tion prior to anticipated ACB History / Clinical:Diabetes, Hypertensio n, AR, Rheumatoid Arthritis Procedures: 2D Echo, Colorflow Doppler, Intravenous Definity Contrast Race: C SUMMARY: LV size is mildly enlarged. LV EF is m oderately to severely depressed. LV filling pressure is normal. FINDINGS: LV: LV size is mildly enlarged. There is moderate eccentric LV hypertrophy. LV EF is m oderately to severely depressed. Global hypokinesis. Jesus culated EF = 33% RV: RV size is normal. RV systo lic function is normal. LA: LA volume is mildly enlarge d. RA: RA size is normal. AO: Aortic root diameter is nor mal. JOSELO: No pericardial effusion. AV: Mild thickening and calcifi cation of AV leaflets. MV: No structural MV abnormalit ies noted. A trace of mitral regurgitation. PV: No structural PV abnormalit ies noted. A trace of pulmonic regurgitation. TV: No structural TV abnormalit ies noted. Mild tricuspid regurgitation Kinsey: LV relaxation is impaired. L V filling pressure is normal. Other: Insufficient TR jet to estim ate PA systolic pressure. MEASUREMENTS: 2D Parasternal [place] Ao An 1.9 cm LVPWd 1 cm Ao Rtd 2.7 cm Index 1.4 cm/m2 LA Ds 4.7 cm IVSd 0.97 cm RWT 0.34 LVIDd 5.8 cm Index 3 cm/m2 LV Mass 229 g (87-12 9) LVIDs 4.9 cm LVM In dex 120 g/m LV%fs 16 % LVOT 1.9 cm LA Sng Plane LA Area 21 cm (8.8-23.4) LA Vol 65 ml Index 34 ml/m2 LA LngAx 5.9 cm EF Biplane EDV 222 ml EF 33 % ESV 149 ml HR 58 bpm SV 73 ml CO 4.2 l/min LVOT LVOT Area 2.8 cm DOPPLER Stroke Vol garfield 1.9 cm Tm 340 msec TVI 25 cm SV 72 ml Signed 03/06/2019 04:37 PM Neil Santos M.D. Procedure Note Interface, Radiology Results In - 2019 4:37 PM PHARMACY GENERAL MANAGER Echocardiography Report [id number] [place] [address] , [place] [address] Pat.Name: JULEE JEFFERSON.I D: [id number] St.Date: 03/06/2019 Refer .MD: SANJAY KEBEDE MD Exam Time: 2:29:00 PM Study Type:Routine Echo Height: 65in Weigh t: 183lb BSA: 1.91 m2 Age: 8 1955,63Y Sex: FEMALE BP: 138/64 HR: 66 bpm Sonogrphr: Cheyenne Diez, RDCS, RVT Pat. Stat.:Inpatient Room: [id number] Study Status:Final Echo Event ID:[id number] Order ID: [id number] Reason for Study:Arrhythmias - Sustained or nonsustained atrial fibrillation, SVT, or VT; Assess LV func tion prior to anticipated ACB History / Clinical:Diabetes, Hypertensio n, AR, Rheumatoid Arthritis Procedures: 2D Echo, Colorflow Doppler, Intravenous Definity Contrast Race: C SUMMARY: LV size is mildly enlarged. LV EF is mo derately to severely depressed. LV filling pressure is normal. FINDINGS: LV: LV size is mildly enlarged. Th ere is moderate eccentric LV hypertrophy. LV EF is moderat [place] to severely depressed. Global hypokinesis. Calculate d EF = 33% RV: RV size is normal. RV systolic function is normal. LA: LA volume is mildly enlarged. RA: RA size is normal. AO: Aortic root diameter is normal . JOSELO: No pericardial effusion. AV: Mild thickening and calcificat ion of AV leaflets. MV: No structural MV abnormalities noted. A trace of mitral regurgitation. PV: No structural PV abnormalities noted. A trace of pulmonic regurgitation. TV: No structural TV abnormalities noted. Mild tricuspid regurgitation Kinsey: LV relaxation is impaired. LV filling pressure is normal. Other: Insufficient TR jet to estimat e PA systolic pressure. MEASUREMENTS: 2D Parasternal [place] Ao An 1.9 cm LVPW d 1 cm Ao Rtd 2.7 cm Inde x 1.4 cm/m2 LA Ds 4.7 cm IVSd 0.97 cm RWT 0.34 LVIDd 5.8 cm Inde x 3 cm/m2 LV Mass 229 g (87-129) LVIDs 4.9 cm LVM Index 120 g/m LV%fs 16 % LVOT 1.9 cm LA Sng Plane LA Area 21 cm (8.8-23.4) L A Vol 65 ml Index 34 ml/m2 LA LngAx 5.9 cm EF Biplane EDV 222 ml EF 33 % ESV 149 ml HR 58 bpm SV 73 ml CO 4.2 l/min LVOT LVOT Area 2.8 cm DOPPLER Stroke Vol garfield 1.9 cm Tm 340 msec TVI 25 cm SV 72 ml Signed 03/06/2019 04:37 PM Neil Santos M.D. Performing Organization Address City/[facility]/ZIP Code Phon e Number [facility] [address] [place] [address] Gram stain (03/06/2019 12:19 PM PHARMACY GENERAL MANAGER) Gram stain result Rare WBC's [facility] Rare Gram positive [facility] Comment: Specimen Information Specimen Source: Urine Specimen Site: Clean catch Specimen Urine Performing Organization Address City/[facility]/ZIP [facility] Phon e Number [facility] DEPARTMENT OF PATHOLOGY AND [address] [place], [place] [phone] GENOMIC MEDIC[address] [address] Urine culture (03/06/2019 12:19 PM PHARMACY GENERAL MANAGER) Urine culture Mixed demetrice 10-4 col/cc [facility] isolate Comment: HOSPITAL Specimen Information Specimen Source: Urine Specimen Site: Clean catch Specimen Urine Performing Organization Address City/[facility]/ZIP Code Phon e Number [facility] DEPARTMENT OF PATHOLOGY AND [address] [place] [address] [phone] [address] Sodium level, urine, random (03/06/2019 10:55 AM PHARMACY GENERAL MANAGER) Pathologist Sig nature Sodium, urine, random 32 mEq/L [facility] Specimen Urine Performing Organization Address City/[facility] Phon e Number [facility] DEPARTMENT OF PATHOLOGY AND [address] [place] [address] [address] Creatinine level, urine, random (03/06/2019 10:55 AM PHARMACY GENERAL MANAGER) Pathologist Sig nature Creatinine, urine, 130 mg/dL [facility] Specimen Urine Performing Organization Address City/[facility] Phon e Number [facility] DEPARTMENT OF PATHOLOGY AND [address] [place] [address] [phone] [address] photographic laboratory technician procedure (03/05/2019 8:13 AM PHARMACY GENERAL MANAGER) Specimen Narrative Performed At This result has an attachment that is no t available. DIP TANKER: PETER MARTINEZ None. PREOPERATIVE DIAGNOSES: 1. Acute non-ST elevation myocardial infarction. 2. Status post multivessel percutaneous coronary int ervention. POSTOPERATIVE DIAGNOSES: 1. Acute non-ST elevation myocardial infarction. 2. Status post multivessel percutaneous coronary int ervention. TITLE OF OPERATION: Left heart catheterization, selective coronary arterio gram without left ventriculogram. ANESTHESIA: Conscious sedation with Versed and fentanyl. ESTIMATED BLOOD LOSS: 10 mL COMPLICATIONS: None. OPERATIVE COURSE: After informed consent was obtained from the patient a nd with appropriate time-out procedure was called, the patient was placed on the cardiac catheterization table. Both groins were cleaned and prepared in the usual fashion and the right groin chosen for access. She r eceived conscious sedation with Versed and fentanyl and tolerated this well. e was continuously monitored by myself and the circulating nurse includin g end-tidal CO2, oxygenation, blood pressure, heart rate, and respirati on. The right groin was then infused with 1% Xylocaine without epinephrine and the artery entered without difficulty using a standard 18-gauge AMC needl e. A short 5-Micronesian sheath was chosen for access. In sequential fashion, JL4, 3DRC, and pigtail catheters were inserted. Multiple orthogonal views w ere taken of the left coronary and only a single shot of the right as it was a nondominant vessel. Left ventricular pressures were obtained, but no left ventriculogram done due to dye considerations. The studies were then carefully reviewed. The patient has an extremely short left main. The LAD itself has dif fuse proximal 30% to 40% stenosis. There are at least 2 and possibly 3 layers of stents from immediately after the first septal spinner tender bridging the diagona l and approximately 2 cm distally. There is an area of incomplete stent expan carol proximally bridging the diagonal with 80% to 85% stenosis after the area a nilam. The circumflex is dominant vessel. There are patent stents in the larg e OM1. The circumflex groove and all posterolateral and distal obtuse margin al branches are patent. The posterior descending is also widely patent. The RCA is a nondominant vessel. No left ventriculogram was done. His nonin vasive imaging shows ejection fraction in the 30% to 34% range, but post-st ress ejection fraction noted on PET scanning done prior to the visit was only 18%. As a result of all of above, the procedure was termina nathan at that point. She was taken off the catheterization table and transporte d back to the PACU for sheath removal. She will be admitted to the cardiac floor for observation and medical stabilization following this. At this time, I am strongly considering her for single vessel coronary bypass to the LAD. Performing Organization Address [facility] e Number [facility] [id number] [place] [address] Anti Xa, unfractionated (03/05/2019 2:14 AM PHARMACY GENERAL MANAGER)Only the most recent of3 resultswithin the time period is included. Anti Xa, 0.25 (L)Comment: 0.30 - 0.70 WING unfractionated Therapeutic Range: U/mL GNOSTICIST 0.30 - 0.70 U/mL HOSPITAL Specimen Blood Performing Organization Address City/State/ZIP Code Phon e Number [facility] DEPARTMENT OF PATHOLOGY AND [address] [place], [place] [address] GENOMIC MEDICINE [address] [address] Troponin (03/05/2019 12:40 AM PHARMACY GENERAL MANAGER)Only the most recent of4 resultswithin the time period is included. Troponin 1.157 (H) 0.000 - 0.040 [facility] Comment: ng/mL HOSPITAL In patients suspected of having a myocardial infarctio n, along with all other appropriate clinical measures and actions includ ing ECG and other diagnostics as appropriate, measure Ultra TnI at 0 hrs and at 3 hrs. Myocardial infarction VERY LIKELY The 0 hr TnI level is > 0.10 ng/mL Myocardial infarction LIKELY The 0 hr TnI level is > 0.04 ng/mL and 3 hr level is i ncreased or decreased by at least 0.020 ng/mL Myocardial infarction VERY UNLIKELY Both the 0 hr and 3 hr TnI levels <= 0.04 ng/mL(within normal limits) OR 0 hr is > 0.04 ng/mL and 3 hr is increased OR decreased by less than 0.020 ng/mL Specimen Plasma specimen Performing Organization Address City/State/ZIP Code Phon e Number [facility] DEPARTMENT OF PATHOLOGY AND [address] [place] [phone] GENOMIC MEDICINE [address] [address] ECG ED Preliminary Interpretation - Not an Order (03/04/2019 9:17 AM PHARMACY GENERAL MANAGER) Narrative Performed At Giovani Serrato MD 03/04/2019 3:51 PM ECG ED Preliminary Interpretation - Not an Order Performed by: Giovani Serrato MD Authorized by: Giovani Serrato MD ECG reviewed by ED Physician in the abse nce of a db2 dba: yes Interpretation: Interpretation: abnormal Rate: ECG rate: 77 ECG rate assessment: normal Rhythm: Rhythm: sinus rhythm QRS: QRS axis: Normal QRS intervals: Normal Conduction: Conduction: abnormal Abnormal conduction: complete RBBB ST segments: ST segments: Normal T waves: T waves: inverted Inverted: AVL and V1 CRITICAL CARE (03/04/2019 9:17 AM PHARMACY GENERAL MANAGER) Narrative Performed At Giovani Serrato MD 03/04/2019 3:51 PM Critical Care Performed by: Giovani Serrato MD Authorized by: Giovani Serrato MD Critical care provider statement: Critical care time (minutes): 35 Critical care was necessary to treat or prevent imminent or life-threatening deterioration of the fo llowing conditions: Cardiac failure Critical care was time spent personal ly by me on the following activities: Development of treatment p rick with patient or surrogate, discussions with consultants, evaluation of patient's response to treatment, examination of patient, inter pretation of cardiac output measurements, obtaining history from patient or surrog ate, review of old charts, re-evaluation of patient's condition, pulse ox imetry, ordering and review of radiographic studies, ordering and review of laboratory studies and ordering and performing treatments and interventio ns after 12/27/2018 Insurance Payer Benefit Plan / Subscriber ID Effective Dates Phone Addre ss Type Group MEDICARE MEDICARE PART A [id number] 2012-Present [place], [place] Medicare AND B MEDICAID MEDICAID [id number] 2019-Present Med icaid Advance Directives For more information, please contact: [phone] Type Date Recorded Patient Weight Reducing Technician Explanati on Advance Directives, 01/26/2018 12:00 AM Living Will and Medical Power of Gas Manager Advance Directives, 11/20/2019 5:16 PM Living Will and Medical Power of Gas Manager Code Status Date Activated Date Inactivated Comments Full Code 11/23/2018 11:14 PM 11/25/2018 10:39 PM Code Status decision reached by: Patient Full Code 11/18/2018 11:30 PM 11/21/2018 12:57 AM Code Status decision reached by: Patient Full Code 08/16/2018 5:28 PM 08/23/2018 3:16 PM Code Status decision reached by: Patient Full Code 08/16/2018 5:28 PM 08/16/2018 5:28 PM Code Status decision reached by: Patient Full Code 10/28/2017 8:25 AM 11/17/2017 8:06 PM Code Status decision reached by: Patient
--- OUTSIDE RECORDS SUMMARY | 2019-12-28 23:37 | XMS REPORT | Continuity of Care Document ---
:1955 Author Organization [facility] t Address [address] [place] [address] Care Team Providers Name Role Phone Mela FITZPATRICK, A. Primary Care Physician Familia FITZPATRICK Attending Clinician Mitzi Siddiqi MD Attending Clinician Db AGUILERA Attending Clinician Unavailable Merrick FITZPATRICK, J. Attending Clinician Jasbir OJEDA Attending Clinician Mandy OJEDA, Tavo Attending Clinician Maria T GOMEZ Attending Clinician Unavailable Josy FITZPATRICK, E. Attending Clinician Rojelio FITZPATRICK, Raciel Attending Clinician Deidre FITZPATRICK, Jarret. Attending Clinician Carlos Peter MD Attending Clinician [phone] Meera Shelton MD Attending Clinician Ziyad FITZPATRICK Attending Clinician Preston GOMEZ Attending Clinician Unavailable Provider Attending Clinician Unavailable Francisco Kebede MD Attending Clinician FAMILIA Admitting Clinician Unavailable JOSY Admitting Clinician Unavailable DEIDRE Admitting Clinician Unavailable Payers Payer Name Policy Type Policy Effective Date Expiration Date Sour ce Number MEDICAREMEDICARE PART [id number] Donavon Chowdhury AND 00:00:00 [facility] [id number] [place] [id number] 2019 Darell dias [id number] 2019-Present 00:00:00 Met francisco costa Problems Condition Condition Condition Status Onset Resolution Last Treating Co mments Source Name Details Category Date Date Treatment Clinician Date ESRD (end ESRD (end Disease Active Overview: [place] stage stage 11-19 Added [facility] renal renal 00:00: automatic st disease) disease) 00 ally from request for surgery [id number] Ischemic Ischemic Disease Active [place] diabetic diabetic 6 Method i maculopath maculopath 00:00: st y with y with 00 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 and y and macular macular edema edema associated associated with type with type 2 diabetes 2 diabetes mellitus mellitus Ischemic Ischemic Disease Active [place] cardiomyop cardiomyop 6-04 [facility] athy athy 00:00: st 00 Obesity Obesity Disease Active [place] (BMI (BMI 1-18 Methodi 30-39.9) 30-39.9) 00:00: st 00 Coronary Coronary Disease Active Overview: Don[place]on reno artery artery 1-13 Added [facility] disease disease 00:00: automatic st involving involving 00 ally from [place] request heart with heart with for unstable unstable surgery angina angina [id number] pectoris pectoris Tremor Tremor Disease Active 2018-02 [place] 0 Methodi 00:00: st 00 Seizure Seizure Disease Active [place] 11-19 Methodi 00:00: st 00 Elevated Elevated Disease Active [place] troponin troponin 11-18 Method i 00:00: st 00 ASCVD ASCVD Disease Active [place] (arteriosc (arteriosc 6 [facility] lerotic lerotic 00:00: st cardiovasc cardiovasc 00 ular ular disease) disease) CAD CAD Disease Active [place] (coronary (coronary 6-27 Meth ty artery artery 00:00: st disease) disease) 00 Atheroscle Atheroscle Disease Active 2017-02 [facility] rosis of rosis of 207 Method i [place] 00:00: st coronary coronary 00 artery of artery of [place] heart with heart with unstable unstable angina angina pectoris pectoris NSTEMI NSTEMI Disease Active [place] (non-ST (non-ST 11-17 [facility] elevated elevated 00:00: st myocardial myocardial 00 infarction infarction ) ) Controlled Controlled Disease Active [facility] type 2 type 2 11-13 [facility] diabetes diabetes 00:00: st mellitus mellitus 00 with with diabetic diabetic nephropath nephropath y, without y, without long-term long-term current current use of use of insulin insulin Acute Acute Disease Active [place] renal renal 11-13 [facility] failure failure 00:00: st superimpos superimpos 00 ed on ed on stage 3 stage 3 chronic chronic kidney kidney disease disease Troponin Troponin Disease Active [place] level level 10-29 [facility] elevated elevated 00:00: st 00 Chest pain Chest pain Disease Active [place] 908 Method[facility] 00:00: st 00 Closed Closed Disease Active [place] intertroch intertroch 908 Me thodi anteric anteric 00:00: st fracture fracture 00 of left of left femur femur Closed Closed Disease Active [place] fracture fracture 908 Method i of left of left 00:00: st wrist wrist 00 Hip Hip Disease Active [place] fracture fracture 908 Method i 00:00: st 00 Vitamin D Vitamin D Disease Active D[facility] ston deficiency deficiency 9-08 Me [facility] 00:00: st 00 Anemia of Anemia of Disease Active [facility] renal renal 4-06 [facility] disease disease 00:00: st 00 Anemia, Anemia, Disease Active 2015-02 [place] macrocytic macrocytic 0-08 Me thodi 00:00: st 00 Osteoporos Osteoporos Disease Active Overview : [place] is with is with 9-14 Osteoporo Metho di current current 00:00: sis s/p st pathologic pathologic 00 RECLAST al al fracture fracture BMD OP - 0.569 femoral neck (-2.5), right hip .583 (-2.9), L1-L4 spine 0.800 (-2.2) Rheumatoid Rheumatoid Disease Active Overview : [place] arthritis arthritis 10-04 Rheumatoi M ethodi involving involving 00:00: d st multiple multiple 00 arthritis sites with sites with with high positive positive titer high titer high titer CCP>250, 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 Responded to steroid and partially to MTX, in remission with addition of xeljanz, Herpes Herpes Disease Active Last [place] gingivosto gingivosto 10-04 Assessmen Methodi matitis in matitis in 00:00: t & Plan: st Sep Initial presentat ion in June, responded to antiviral , currently having a new flare (September 2015) given new prescript ion for ten days Coronary Coronary Disease Active [place] artery artery 10-04 [facility] disease disease 00:00: st s/p stent s/p stent 00 x 1 x 1 Hypothyroi Hypothyroi Disease Active [facility] dism dism 10-04 [facility]i 00:00: st 00 Hypertensi Hypertensi Disease Active [facility] [place] on 10-04 Methodi 00:00: st 00 Diabetes Diabetes Disease Active [place] mellitus mellitus 10-04 Method i due to due to 00:00: st underlying underlying 00 condition condition with with diabetic diabetic nephropath nephropath y y Allergies, Adverse Reactions, Alerts Allergy Allergy Status Severity Reaction(s) Onset Inactive Treating Comm ents Source Name Type Date Date Clinician Gabapent Propensi Active Other (See Sandra Guerrero in ty to Comments) 6-04 off [facility] adverse 00:00: st reaction 00 s to drug Meperidi Propensi Active Other (See 2018-02 Lupis brambila ty to Comments) 0-04 becomes Method i adverse 00:00: lethargic st reaction 00 and s to unrespons drug ibis for days Morphine Propensi Active Other (See 2018-02 Lupis reno ty to Comments) 0-04 becomes Method i adverse 00:00: lethargic st reaction 00 and s to unrespons drug ibis for days Penicill Propensi Active Anaphylaxis [facility] ins ty to 8-15 [facility] adverse 00:00: st reaction 00 s to drug Family History Family Member Diagnosis Comments Start Date Stop Date Source Natural father Alzheimer's disease [facility] Natural father Dementia [facility]ist Natural mother Dementia [facility] Natural mother Diabetes [place] Me [facility]ist Natural mother Other [facility]ist Natural sister Diabetes [facility] Social History Social Habit Start Date Stop Date Quantity Comments Source Sex Assigned At [facility] ethodist Exposure to Not sure [place] Metho dist SARS-CoV-2 (event) Tobacco use and 2019-11-26 2019-11-26 Never used [facility] ethodist exposure 00:00:00 00:00:00 Alcohol intake 2019-11-26 2019-11-26 Ex-drinker [facility]odist 00:00:00 00:00:00 (finding) Tobacco Comment 2019-11-20 2019-11-20 only smoked for Nona craig [facility] 00:00:00 00:00:00 1 year. Smoking Status Start Date Stop Date Source Former smoker 2019-11-26 00:00:00 2019-11-26 00:00:00 [place] [facility] Medications Ordered Filled Start Stop Current Ordering Indication Dosage Frequency Signature Comments Components Source Medication Medication Date Date Medication? Clinician (SIG) Name Name cyanocobala 2019-02 Yes 1000ug QD Take 1,000 Gu[place]ro min 1000 1-04 mcg by [facility] MCG tablet 13:30: mouth st 05 daily. folic acid 2019-02 Yes 400ug QD Take 400 [place] (FOLVITE) 1-04 mcg by [facility] 400 MCG 13:30: mouth st tablet 05 daily. memantine 2019-02 Yes 10mg Q.5D Take 10 mg [place] (NAMENDA) 1-04 by mouth 2 Meth ty 10 MG 13:30: (two) st tablet 05 times a day. calcitriol 2020- Yes .5ug QD Take 0.5 [facility] (ROCALTROL) 1-04 mcg by Method i 0.5 MCG 13:30: mouth st capsule 05 daily. acetaminoph 2019-02 Yes 650mg Q6H Take 650 [place] en 1-04 mg by [facility] (TYLENOL) 13:30: mouth st 325 MG 05 every 6 tablet (six) hours as needed for mild pain or fever. hydrALAZINE 2019-02 Yes 25mg Q.5D Take 25 mg [facility] (APRESOLINE 1-04 by mouth 2 Me thodi ) 25 MG 13:30: (two) st tablet 05 times a day. LORAZepam 2019-02 Yes .5mg Q6H Take 0.5 [place] (ATIVAN) 1-04 mg by Methodi 0.5 MG 13:30: mouth st tablet 05 every 6 (six) hours as needed (tremors). aspirin 325 2019-02 Yes 325mg QD Take 325 [place] MG tablet 1-04 mg by Methodi 13:30: mouth st 05 daily. atorvastati 2019-02 Yes 40mg QD Take 40 mg Guerrero n (LIPITOR) 1-04 by mouth Meth ty 40 mg 13:30: nightly. st tablet 05 cholecalcif 2019-02 Yes 1000U QD Take 1,000 Guerrero [place], 1-04 Units by [facility] vitamin D3, 13:30: mouth st 1,000 unit 05 daily. tablet clopidogreL 2019-02 Yes 75mg QD Take 75 mg [place] (PLAVIX) 75 1-04 by mouth Meth ty mg tablet 13:30: daily. st 05 glipiZIDE 2019-02 Yes 10mg QD Take 10 mg [place] (GLUCOTROL) 1-04 by mouth Meth ty 10 MG 13:30: daily. st tablet 05 metoprolol 2019-02 Yes 12.5mg Q.5D Take 12.5 Gu[place]ro tartrate 1-04 mg by [facility] (LOPRESSOR) 13:30: mouth 2 st 25 mg 05 (two) tablet times a day. insulin 2019-02 Yes 24U QD Inject 24 [place] GLARGINE 1-04 Units [facility]i (LANTUS) 13:30: under the st 100 unit/mL 05 skin injection daily. (vial) nystatin 2019-02 Yes [id number] Q.25D Take [place] (MYCOSTATIN 1-04 500,000 Metho di ) 100,000 13:30: Units by st unit/mL 05 mouth 4 suspension (four) times a day. Swish in mouth polyethylen 2019-02 Yes 17g QD Take 17 g [place] e glycol 1-04 by mouth [facility] (MIRALAX) 13:30: daily. st 17 gram 05 packet docusate 2019-02 Yes 100mg Q.5D Take 100 [place] sodium 1-04 mg by [facility] (COLACE) 13:30: mouth 2 st 100 MG 05 (two) capsule times a day. traMADoL 2019-02 Yes acute pain 50mg Q6H Take 50 mg [place] (ULTRAM) 50 1-04 by mouth Meth ty mg tablet 13:30: every 6 st 05 (six) hours as needed for moderate pain .acute pain. aspirin 2019-02 Yes 81mg QD Take 81 mg [place] (ECOTRIN) 1-04 by mouth Method i 81 MG 13:30: daily. st enteric 05 coated tablet traMADoL 2019-02- No acute pain 50mg Q6H Take 1 [place] (Ultram) 50 0-05 10-19 tablet (50 M ethodi mg tablet 00:00: 23:59 mg total) st 00 :00 by mouth every 6 (six) hours as needed for moderate pain for up to 14 days .acute pain. furosemide 2019- No 80mg Q.5D Take 80 mg [place] (LASIX) 80 11-19 09-30 by mouth 2 Me [facility] mg tablet 17:39: 00:00 (two) st 54 :00 times a day. insulin 2019- No 30U QD Inject 30 [place] detemir 11-19-30 Units Methodi U-100 17:39: 00:[address] (LEVEMIR) 43 :00 skin 100 unit/mL daily. injection traMADol 2019- No 50mg Q.[id number] Take 50 mg [place] (ULTRAM) 50 07-25 06- [id number] by mouth 3 [facility] mg tablet 11:50: 00:00 3D (three) st 19 :00 times a day as needed for moderate pain. Not taking minocycline 2019- No 100mg Q.5D Take 1 [place] (DYNACIN) 07-25 06-10 tablet Methodi 100 MG 00:00: 23:59 ([address] tablet 00 :00 total) by mouth 2 (two) times a day for 5 days. traMADoL 2019- No acute pain 25mg Q8H Take 0.5 [place] (Ultram) 50 07-25 06-08 tablets Meth ty mg tablet 00:00: 23:59 ([address] 00 :00 total) by mouth every 8 (eight) hours as needed for moderate pain for up to 3 days .acute pain. docusate 2020-0 2020- No 100mg Q.5D Take 100 [place] [facility] sodium 6-04 06-04 mg by [facility] (COLACE) 07:00: 00:[address] 100 MG 29 :00 (two) capsule times a day. aspirin 325 2019-0 2020- No 325mg QD Take 1 [place] MG tablet 03-20 tablet Methodi 00:00: 23:59 ([address] 00 :00 total) by mouth daily for 30 days. clopidogreL 2020- No 75mg QD Take 1 [place] [facility] (PLAVIX) 75 03-20 tablet (75 M ethodi mg tablet 00:00: 23:59 mg total) st 00 :00 by mouth daily for 30 days. cholecalcif 2019- 2020- No 2000U QD Take 2 [place], 03-20 tablets Methodi vitamin D3, 00:00: 23:59 (2,000 st (VITAMIN 00 :00 Units D3) 1,000 total) by unit tablet mouth daily for 30 days. fluconazole 2019- No 200mg QD Take 1 [place] (DIFLUCAN) 03-20 tablet Method i 200 MG 00:00: 23:59 ([address] tablet 00 :00 total) by mouth daily for 2 days. furosemide 2019- 2020- No 10mg QD Take 10 mg [place] (LASIX) 20 03-19 by mouth Meth ty mg tablet 18:20: 00:[address] 04 :00 aspirin 2019-2019- No 81mg QD Take 81 mg [facility] st[place] (ECOTRIN) 03-19 by mouth Metho di 81 MG 18:20: 00:[address] enteric 04 :00 coated tablet cholecalcif 2019- No 5000U QD Take 5,000 Guerrero [place], 03-19 Units by Methodi vitamin D3, 18:20: 00:[address] (VITAMIN 04 :00 daily. D3) 5,000 unit capsule glipiZIDE 2019- No 10mg QD Take 10 mg [place] (GLUCOTROL) 03-19 by mouth Met hodi 10 MG 18:20: 00:[address] tablet 04 :00 before breakfast. pen needle, 2019- Yes Inject [place] diabetic 03-19 daily Methodi (PEN 00:00: st NEEDLE) 31 00 gauge x 5/16" needle linaGLIPtin 2020- No 5mg QD Take 1 [place] [facility] (TRADJENTA) 03-1930 tablet (5 Me [facility] 5 mg tablet 00:00: 00:00 mg total) st 00 :00 by mouth daily with breakfast. insulin 2019- 2020- No 24U QD Inject 24 [place] GLARGINE 03-19 06-04 Units [facility]i (LANTUS 00:00: 00:[address] SOLOSTAR 00 :00 skin U-100 daily. INSULIN) 100 unit/mL injection (pen) atorvastati 2020- No 40mg QD Take 1 [place] st[place] n (LIPITOR) 03-19 tablet (40 M ethodi 40 MG 00:00: 23:59 mg total) st tablet 00 :00 by mouth nightly for 30 days. metoprolol 2020- No 12.5mg Q.5D Take 0.5 [place] tartrate 03-19 tablets Methodi (LOPRESSOR) 00:00: 23:59 (12.5 mg s t 25 mg 00 :00 total) by tablet mouth 2 (two) times a day for 30 days. polyethylen 2020- No 17g Q24H Take 17 g Gu[place]ro e glycol 03-19 by mouth Method i (MIRALAX) 00:00: 23:[address] 17 gram 00 :00 needed for packet constipati on for up to 30 days. nystatin 2020- No 5mL Q.25D Take 5 mL [place] (MYCOSTATIN 03-19 by mouth 4 M ethodi ) 100,000 00:00: 23:59 (four) st unit/mL 00 :00 times a suspension day for 3 days. Swish in mouth sodium 2019-0 2020- No 325mg Q.5D Take 325 [place] bicarbonate 03-04- mg by Method i 650 mg 11:20: 00:[address] tablet 16 :00 (two) times a day. lisinopril 2019-0 2020- No 20mg 20 mg [place] (PRINIVIL,Z 03-04-13 daily. Metho di ESTRIL) 5 11:18: 00:[address] MG tablet 16 :00 hydrALAZINE No 25mg Q.[id number] Take 25 mg [place] (APRESOLINE 03-04 [id number] by mouth 3 Methodi ) 50 MG 11:17: 00:00 3D (three) st tablet 56 :00 times a day. ferrous No 325mg QD Take 325 [place] sulfate 325 03-04 mg by Method i (65 FE) MG 11:17: 00:[address] tablet 28 :00 daily with breakfast. cholecalcif No 5000U QD Take 5,000 Gu[place]ro [place], 03-04 Units by Methodi vitamin D3, 11:16: 00:[address] (VITAMIN 05 :00 daily. D3) 1,000 unit tablet clopidogrel 2017-02 No 75mg QD Take 1 [place] (PLAVIX) 75 03-31 tablet (75 M ethodi mg tablet 00:00: 23:59 mg total) st 00 :00 by mouth daily. atorvastati 2017-02 No 20mg QD Take 1 [place] ston n (LIPITOR) 03-30 tablet (20 M ethodi 20 MG 00:00: 23:59 mg total) st tablet 00 :00 by mouth nightly. Default OP ins nitroglycer 2017-[address] 0.4 [place] in 2-03 mg under Methodi (NITROSTAT) 00:00: the tongue st 0.4 MG SL 00 as needed. tablet PARoxetine 2017-02 Yes 40mg QD Take 40 mg [place] (PAXIL) 40 03-20 by mouth Metho di MG tablet 00:00: every st 00 morning. glipiZIDE 2017-02- No 2.5mg QD Take 2.5 [place] (GLUCOTROL) 03-20-13 mg by Method i 5 MG tablet 00:00: 00:[address] 00 :00 daily with breakfast. XELJANZ 5 2017-02 Yes 5mg QD Take 5 mg [facility] st[place] mg tablet 05 by mouth Method i 00:00: daily. st 00 lancets 2019- No PRN [facility] (freestyle) 11-15 Methodi 28 gauge 00:00: 00:00 st misc 00 :00 pen needle, 2020- No Type 2 Use 1 Donavon reno diabetic 11-03 diabetes, needle Met hodi (BD 00:00: 00:[address] ULTRA-FINE 00 :00 d, with LYNNE PEN retinopathy NEEDLES) 32 (HCC) gauge x 5/32" needle exenatide 2020- No Acute 2mg Q1W Inject 2 Don[place]on kiara microsphere 10-04 cystitis mg under Methodi s 00:00: 00:[address] (BYDUREON) 00 :00 hematuria every 7 2 mg/0.65 days for mL pen 90 days. injector Vital Signs Vital Name Observation Time Observation Value Comments Source Systolic blood 2019-12-25 13:25:00 136 mm[Hg] Timoteo bolanos [facility] pressure Diastolic blood 2019-12-25 13:25:00 78 mm[Hg] Kevin baer [facility] pressure Heart rate 2019-12-25 13:25:00 75 /min Cesar Harris Body temperature 2019-12-25 13:25:00 36.17 [place] Nona Harris Body height 2019-12-25 13:25:00 165.1 cm Cesar Harris Oxygen saturation in 2019-12-25 13:25:00 96 /min Cesar Harris Arterial blood by Pulse oximetry Respiratory rate 2019-11-25 16:30:00 20 /min Nona Harris Body weight 2019-11-20 17:26:00 86.637 kg Cesar Harris BMI 2019-11-20 17:26:00 31.78 kg/m2 Cesar Harris Procedures Procedure Date / Time Performing Clinician Source Performed US DUPLEX HEMODIALYSIS AVG 2019-12-25 13:45:27 Craig Barbosa AVF ACCESS POC GLUCOSE 2019-11-25 15:36:00 Craig Barbosa RI AN PERIPHERAL BLOCK 2019-11-25 12:13:48 Kevin Sin PROCEDURE FOR PAIN Shanta Russell TYPE AND SCREEN 2019-11-25 10:00:00 Craig Barbosa COMPREHENSIVE METABOLIC 2019-11-25 10:00:00 Craig Barbosa PANEL PROTHROMBIN TIME WITH INR 2019-11-25 10:00:00 Craig Barbosa PARTIAL THROMBOPLASTIN 2019-11-25 10:00:00 Craig Barbosa on [facility] TIME (PTT) ESTIMATED GFR 2019-11-25 10:00:00 Craig Barbosa odist POC GLUCOSE 2019-11-25 10:00:00 Craig Barbosa odist XR CHEST 2 VW 2019-11-20 18:33:04 Cesar Sin COVID-19 QUALITATIVE PCR 2019-11-20 17:21:00 Craig Barbosa HC COMPLETE BLD COUNT 2019-11-20 17:21:00 Craig Barbosa W/AUTO DIFF TYPE AND SCREEN 2019-11-20 17:21:00 Craig Barbosa HEMOGLOBIN A1C 2019-11-20 17:21:00 Cesar Sin ECG PRE/POST OP 2019-11-20 16:57:52 Cesar Sin US VEIN MAPPING UPPER 2019-11-20 15:50:00 Craig Barbosa EXTREMITY BILATERAL POC GLUCOSE 2019-07-26 08:10:00 Bruno Nichols odist POC GLUCOSE 2019-07-26 06:15:00 Bruno Nichols Meth odist POC GLUCOSE 2019-07-25 17:37:00 Bruno Nichols HEPATITIS B SURFACE 2019-07-25 12:15:00 Stef Ace ANTIGEN XR CHEST 1 VW PORTABLE 2019-07-25 10:38:41 Bruno Nichols on [facility] ECG 12-LEAD 2019-07-25 10:32:42 Bruno Nichols Meth odist POC GLUCOSE 2019-07-25 10:07:00 Bruno Nichols Meth odist HEMODIALYSIS 2019-07-25 09:44:48 Stef Ace EP AICD IMPLANT SINGLE 2019-07-25 09:43:40 Bruno Nichols on [facility] DUAL BI VENT ESTIMATED GFR 2019-07-25 07:14:00 Bruno Nichols Meth odist POC PANEL 2019-07-25 07:14:00 Bruno Nichols Meth odist ECG PRE/POST OP 2019-07-25 06:28:24 Bruno Nichols Meth odist POC GLUCOSE 2019-07-25 06:14:00 Bruno Nichols Meth odist XR CHEST 2 VW 2019-03-19 09:57:07 Rosa Jiang Met hodist POC GLUCOSE 2019-03-19 08:25:00 Rosa Jiang Met [facility]odist CBC WITH PLATELET AND 2019-03-19 05:45:00 Rosa Jiang on [facility] DIFFERENTIAL MANUAL DIFFERENTIAL 2019-03-19 05:45:00 Rosa Jiang [facility] BASIC METABOLIC PANEL 2019-03-19 05:37:00 Rosa Jiang on [facility] ESTIMATED GFR 2019-03-19 05:37:00 Rosa Jiang Met [facility]ist POC GLUCOSE 2019-03-18 21:08:00 Rosa Jiang Met [facility]ist POC GLUCOSE 2019-03-18 17:05:00 Rosa Jiang Met [facility]ist POC GLUCOSE 2019-03-18 13:33:00 Rosa Jiang Met [facility]ist HEPATITIS B CORE ANTIBODY 2019-03-18 10:11:00 Gerhard Smith [facility] TOTAL HEPATITIS B SURFACE 2019-03-18 10:11:00 Gerhard Smith [facility] ANTIBODY HEPATITIS B SURFACE 2019-03-18 10:11:00 Gerhard Smith [facility] ANTIGEN HEPATITIS C ANTIBODY 2019-03-18 10:11:00 Gerhard Smith [facility] POC GLUCOSE 2019-03-18 09:53:00 Rosa Jiang [facility] CBC WITH PLATELET AND 2019-03-18 08:30:00 Rosa Jiang on [facility] DIFFERENTIAL BASIC METABOLIC PANEL 2019-03-18 08:30:00 Rosa Jiang on [facility] ESTIMATED GFR 2019-03-18 08:30:00 Rosa Jiang Met [facility]ist MANUAL DIFFERENTIAL 2019-03-18 08:30:00 Rosa Jiang [facility] POC GLUCOSE 2019-03-18 07:54:00 Rosa Jiang Met [facility]ist POC GLUCOSE 2019-03-17 21:15:00 Rosa Jiang JarretRodger Guerrero Met hodist HEMODIALYSIS 2019-03-17 18:04:30 Gerhard Smith Meth odist POC GLUCOSE 2019-03-17 17:18:00 Rosa Jiang Met [facility]ist POC GLUCOSE 2019-03-17 12:40:00 Rosa Jiang Met [facility]ist POC GLUCOSE 2019-03-17 10:45:00 Rosa Jiang Met hodist POC GLUCOSE 2019-03-17 07:57:00 Rosa Jiang Met [facility]ist POC GLUCOSE 2019-03-16 22:06:00 Rosa Jiang Met [facility]ist POC GLUCOSE 2019-03-16 21:19:00 Rosa Jiang Met [facility]ist POC GLUCOSE 2019-03-16 21:17:00 Rosa Jiang Met [facility]ist POC GLUCOSE 2019-03-16 17:43:00 Rosa Jiagn Met [facility]ist POC GLUCOSE 2019-03-16 12:20:00 Rosa Jiang Met [facility]ist POC GLUCOSE 2019-03-16 07:39:00 Rosa Jiang Met [facility]ist HC COMPLETE BLD COUNT 2019-03-16 05:00:00 Lalitha Dalton [facility] W/AUTO DIFF POC GLUCOSE 2019-03-15 19:51:00 Rosa Jiang Met [facility]ist POC GLUCOSE 2019-03-15 17:31:00 Rosa Jiang Met [facility]ist POC GLUCOSE 2019-03-15 13:29:00 Rosa Jiang Met [facility]ist POC GLUCOSE 2019-03-15 12:21:00 Rosa Jiang Met [facility]ist HEMODIALYSIS 2019-03-15 11:14:13 Gerhard Smith Meth odist POC GLUCOSE 2019-03-15 07:48:00 Rosa Jiang Met [facility]ist POC GLUCOSE 2019-03-15 05:05:00 Rosa Jiang Met [facility]ist HC COMPLETE BLD COUNT 2019-03-15 05:00:00 Lalitha Dalton [facility] W/AUTO DIFF POC GLUCOSE 2019-03-14 20:17:00 Rosa Jiang Met [facility]ist POC GLUCOSE 2019-03-14 16:31:00 Rosa Jiang [facility] IR TUNNELED DIALYSIS 2019-03-14 16:07:30 Gerhard Smith [facility] CATHETER PLACEMENT POC GLUCOSE 2019-03-14 14:31:00 Rosa Jiang [facility] POC GLUCOSE 2019-03-14 11:17:00 Rosa Jiang [facility] POC GLUCOSE 2019-03-14 08:12:00 Rosa Jiang [facility]ist ECG 12-LEAD 2019-03-14 06:48:17 Lalitha Dalton ethodist HC COMPLETE BLD COUNT 2019-03-14 05:00:00 Lalitha Dalton W/AUTO DIFF BASIC METABOLIC PANEL 2019-03-14 00:00:00 Lalitha Dalton MAGNESIUM LEVEL 2019-03-14 00:00:00 Lalitha Dalton ethodist IONIZED CALCIUM 2019-03-14 00:00:00 Lalitha Dalton ethodist PHOSPHORUS LEVEL 2019-03-14 00:00:00 Lalitha Dalton ESTIMATED GFR 2019-03-14 00:00:00 Lalitha Dalton ethodist POC GLUCOSE 2019-03-13 18:06:00 Rosa Jiang [facility] POC GLUCOSE 2019-03-13 11:38:00 Rosa Jiang [facility] POC GLUCOSE 2019-03-13 11:02:00 Rosa Jiang [facility] POC GLUCOSE 2019-03-13 07:55:00 Rosa Jiang [facility] XR CHEST 1 VW PORTABLE 2019-03-13 06:09:43 Dana Blackwell [facility] POC GLUCOSE 2019-03-13 04:24:00 Rosa Jiang [facility] ECG 12-LEAD 2019-03-13 04:16:07 Lalitha Datlon ethodist CBC HEMOGRAM 2019-03-13 01:45:00 Dana Blackwellodist BASIC METABOLIC PANEL 2019-03-13 01:45:00 Dana Blackwellist MAGNESIUM LEVEL 2019-03-13 01:45:00 LatDana ríos ethodist ESTIMATED GFR 2019-03-13 01:45:00 Dana Blackwell ethodist POC GLUCOSE 2019-03-12 20:02:00 Rosa Jiang Met [facility]ist HEMODIALYSIS 2019-03-12 19:11:45 Lalitha Dalton ethodist POC GLUCOSE 2019-03-12 17:09:00 Rosa Jiang [facility] POC GLUCOSE 2019-03-12 11:24:00 Rosa Jiang [facility] XR CHEST 1 VW PORTABLE 2019-03-12 09:44:00 Lalitha Dalton [place] [facility] POC GLUCOSE 2019-03-12 07:13:00 Rosa Jiang [facility] XR CHEST 1 VW PORTABLE 2019-03-12 06:47:03 Rosalva Dana garzaton [facility] POC GLUCOSE 2019-03-12 06:03:00 Rosa Jiang [facility] ARTERIAL BLOOD GAS 2019-03-12 05:58:00 LatGabby ríosselmacelia Mahmood n [facility] POC GLUCOSE 2019-03-12 04:18:00 Rosa Jiang [facility] ECG 12-LEAD 2019-03-12 03:39:09 Lalitha Dalton ethodist POC GLUCOSE 2019-03-12 02:11:00 Rosa Jiang [facility] CBC HEMOGRAM 2019-03-12 00:55:00 Dana Blackwell ethodist BASIC METABOLIC PANEL 2019-03-12 00:55:00 LatiffDana Darell dias [facility] MAGNESIUM LEVEL 2019-03-12 00:55:00 Dana Blackwell ethodist ESTIMATED GFR 2019-03-12 00:55:00 Dana Blackwell ethodist POC GLUCOSE 2019-03-12 00:04:00 Rosa Jiang [facility] POC GLUCOSE 2019-03-11 23:09:00 [facility] POC GLUCOSE 2019-03-11 22:11:00 [facility] POC GLUCOSE 2019-03-11 21:42:00 [facility] POC GLUCOSE 2019-03-11 20:51:00 Rsoa [facility] POC GLUCOSE 2019-03-11 18:09:00 [facility] POC GLUCOSE 2019-03-11 17:13:00 [facility] HEMODIALYSIS 2019-03-11 16:49:45 Gerhard Smith [facility] POC GLUCOSE 2019-03-11 16:40:00 [facility] ECG 12-LEAD 2019-03-11 16:10:32 Jagdish Magallanes [facility] POC GLUCOSE 2019-03-11 15:25:00 [facility] ARTERIAL BLOOD GAS 2019-03-11 15:07:00 Vlad Andrade [facility] POC GLUCOSE 2019-03-11 14:18:00 [facility] XR CHEST 1 VW PORTABLE 2019-03-11 14:17:39 Jagdish Magallanes BASIC METABOLIC PANEL 2019-03-11 13:34:00 Jagdish Magallanes HC COMPLETE BLD COUNT 2019-03-11 13:34:00 Jagdish Magallanes W/AUTO DIFF MAGNESIUM LEVEL 2019-03-11 13:34:00 Jagdish Magallanes [facility] PHOSPHORUS LEVEL 2019-03-11 13:34:00 Jagdish Magallanes [facility] PROTHROMBIN TIME WITH INR 2019-03-11 13:34:00 Jagdish Magallanes PARTIAL THROMBOPLASTIN 2019-03-11 13:34:00 Jagdish Magallanes TIME (PTT) ARTERIAL BLOOD GAS 2019-03-11 13:34:00 Jagdish Magallanes ESTIMATED GFR 2019-03-11 13:34:00 Jagdish Magallanes [facility] IONIZED CALCIUM, ARTERIAL 2019-03-11 13:34:00 Jagdish Magallanes POC GLUCOSE 2019-03-11 13:27:00 [facility] CONSULT CARDIAC REHAB 2019-03-11 13:14:32 Lalitha Dalton PHASE 1 ACTIVATED CLOTTING TIME 2019-03-11 11:50:00 Rosa Jiang ARTERIAL BLOOD GAS 2019-03-11 11:14:00 Rosa Jiang POTASSIUM, SYRINGE 2019-03-11 11:14:00 Rosa Jiang SODIUM LEVEL, SYRINGE 2019-03-11 11:14:00 [facility] HEMOGLOBIN, SYRINGE 2019-03-11 11:14:00 Rosa Jiang IONIZED CALCIUM, ARTERIAL 2019-03-11 11:14:00 Rosa Jiang LACTIC ACID, SYRINGE 2019-03-11 11:14:00 Rosa Jiang GLUCOSE LEVEL, SYRINGE 2019-03-11 11:14:00 Rosa Jiang ACTIVATED CLOTTING TIME 2019-03-11 10:48:00 Rosa Jiang TRANSFUSE RED BLOOD CELLS 2019-03-11 10:31:02 Zohaib [facility] TRANSFUSE RED BLOOD CELLS 2019-03-11 10:10:48 Zohaib Lackey [place] [facility] ANESTHESIA RASHEL 2019-03-11 09:06:46 Zohaib Lackey [facility] CENTRAL LINE 2019-03-11 09:05:48 Zohaib Lackey [facility] ARTERIAL LINE 2019-03-11 09:05:00 Zohaib Lackey [facility] ANESTHESIA INTUBATION 2019-03-11 09:04:16 Zohaib Lackey GLUCOSE LEVEL, SYRINGE 2019-03-11 08:30:00 Rosa Jiang IONIZED CALCIUM, ARTERIAL 2019-03-11 08:30:00 Rosa Jiang HEMOGLOBIN, SYRINGE 2019-03-11 08:30:00 Rosa Jiang SODIUM LEVEL, SYRINGE 2019-03-11 08:30:00 [facility] POTASSIUM, SYRINGE 2019-03-11 08:30:00 Rosa Jiang ARTERIAL BLOOD GAS, 2019-03-11 08:30:00 [place], [facility] CORRECTED ACTIVATED CLOTTING TIME 2019-03-11 08:30:00 [facility] PREPARE RBC 2019-03-11 07:59:00 [facility] BASIC METABOLIC PANEL 2019-03-11 05:30:00 [facility] ESTIMATED GFR 2019-03-11 05:30:00 [facility] POC GLUCOSE 2019-03-11 05:00:00 [facility] POC GLUCOSE 2019-03-10 21:15:00 [facility] HEMODIALYSIS 2019-03-10 18:52:40 [facility] POC GLUCOSE 2019-03-10 16:53:00 [facility] POC GLUCOSE 2019-03-10 13:03:00 [facility] POC GLUCOSE 2019-03-10 11:29:00 [facility] POC GLUCOSE 2019-03-10 07:53:00 [facility] HC COMPLETE BLD COUNT 2019-03-10 06:30:00 [facility] W/AUTO DIFF BASIC METABOLIC PANEL 2019-03-10 04:00:00 [facility] LIPID PANEL 2019-03-10 04:00:00 Jorge Magallonminda Cesar [facility] HEPATIC FUNCTION PANEL 2019-03-10 04:00:00 Palstella, Familiazviminda Darell dias [facility] THYROID STIMULATING 2019-03-10 04:00:00 Familia Magallonzviminbyron Mahmood n [facility] HORMONE T4, FREE 2019-03-10 04:00:00 Sherita, Familiazviminda Cesar [facility] ESTIMATED GFR 2019-03-10 04:00:00 [facility] POC GLUCOSE 2019-03-09 21:22:00 [facility] POC GLUCOSE 2019-03-09 16:40:00 [facility] HEPATITIS B SURFACE 2019-03-09 13:45:00 Rosa [facility] ANTIGEN POC GLUCOSE 2019-03-09 12:44:00 [facility] POC GLUCOSE 2019-03-09 08:11:00 [facility] BASIC METABOLIC PANEL 2019-03-09 05:25:00 [facility] MAGNESIUM LEVEL 2019-03-09 05:25:00 [facility] ESTIMATED GFR 2019-03-09 05:25:00 [facility] HC COMPLETE BLD COUNT 2019-03-09 05:20:00 [facility] W/AUTO DIFF POC GLUCOSE 2019-03-08 23:06:00 [facility] HEMODIALYSIS CATHETER 2019-03-08 22:42:20 Gail Evans [facility] PLACEMENT POC GLUCOSE 2019-03-08 21:32:00 [facility] HEMODIALYSIS 2019-03-08 18:17:56 Ger[facility] POC GLUCOSE 2019-03-08 17:27:00 [facility] POC GLUCOSE 2019-03-08 17:22:00 Rosa [facility] POC GLUCOSE 2019-03-08 12:25:00 [facility] POC GLUCOSE 2019-03-08 12:24:00 [facility] POC GLUCOSE 2019-03-08 08:23:00 [facility] POC GLUCOSE 2019-03-08 06:34:00 [facility] HC COMPLETE BLD COUNT 2019-03-08 05:00:00 [facility] W/AUTO DIFF BASIC METABOLIC PANEL 2019-03-08 05:00:00 [facility] ESTIMATED GFR 2019-03-08 05:00:00 [facility] POC GLUCOSE 2019-03-07 21:15:00 [facility] POC GLUCOSE 2019-03-07 17:57:00 [facility] POC GLUCOSE 2019-03-07 11:23:00 [facility] POC GLUCOSE 2019-03-07 07:58:00 [facility] HC COMPLETE BLD COUNT 2019-03-07 07:40:00 [facility] W/AUTO DIFF BASIC METABOLIC PANEL 2019-03-07 07:40:00 [facility] TYPE AND SCREEN 2019-03-07 07:40:00 [facility] ESTIMATED GFR 2019-03-07 07:40:00 [facility] POC GLUCOSE 2019-03-07 04:53:00 [facility] VENOUS BLOOD GAS 2019-03-07 04:45:00 Myron Waterman [facility] BASIC METABOLIC PANEL 2019-03-07 04:45:00 [facility] HC COMPLETE BLD COUNT 2019-03-07 04:45:00 [facility] W/AUTO DIFF B NATRIURETIC PEPTIDE 2019-03-07 04:45:00 [facility] ESTIMATED GFR 2019-03-07 04:45:00 [facility] SMEAR REVIEW 2019-03-07 04:45:00 [facility] URINALYSIS SCREEN AND 2019-03-07 01:00:00 [facility] MICROSCOPY, WITH REFLEX TO CULTURE POC GLUCOSE 2019-03-06 20:59:00 [facility] POC GLUCOSE 2019-03-06 16:45:00 [facility] US CAROTID DUPLEX 2019-03-06 15:45:00 Sanjay Kebedeist BILATERAL TTE COMPLETE, WO CONTRAST, 2019-03-06 15:29:00 Sanjay [facility] W DOPPLER ([id number]) HEMOGLOBIN A1C 2019-03-06 15:05:00 [facility] GRAM STAIN 2019-03-06 12:19:00 [facility] URINE CULTURE 2019-03-06 12:19:00 [facility] POC GLUCOSE 2019-03-06 12:05:00 [facility] URINALYSIS SCREEN AND 2019-03-06 10:55:00 Myron [facility]erman [facility] MICROSCOPY, WITH REFLEX TO CULTURE SODIUM LEVEL, URINE, 2019-03-06 10:55:00 Myron Waterman [facility] RANDOM CREATININE LEVEL, URINE, 2019-03-06 10:55:00 Myron Waterman [facility] RANDOM POC GLUCOSE 2019-03-06 08:50:00 [facility] BASIC METABOLIC PANEL 2019-03-06 03:55:00 [facility] B NATRIURETIC PEPTIDE 2019-03-06 03:55:00 [facility] HC COMPLETE BLD COUNT 2019-03-06 03:55:00 [facility] W/AUTO DIFF MAGNESIUM LEVEL 2019-03-06 03:55:00 [facility] PHOSPHORUS LEVEL 2019-03-06 03:55:00 [facility] ESTIMATED GFR 2019-03-06 03:55:00 [facility] POC GLUCOSE 2019-03-06 01:30:00 [facility] POC GLUCOSE 2019-03-05 21:16:00 [facility] POC GLUCOSE 2019-03-05 17:09:00 [facility] HEMOGLOBIN A1C 2019-03-05 16:30:00 [facility] POC GLUCOSE 2019-03-05 11:34:00 [facility] CV SELECTIVE CORONARY 2019-03-05 08:13:23 Sanjay [facility] ANGIOGRAPHY CV LEFT HEART CATH 2019-03-05 08:13:23 Sanjay Kebede [facility] HC COMPLETE BLD COUNT 2019-03-05 03:20:00 [facility] W/AUTO DIFF BASIC METABOLIC PANEL 2019-03-05 03:20:00 [facility] B NATRIURETIC PEPTIDE 2019-03-05 03:20:00 [facility] MAGNESIUM LEVEL 2019-03-05 03:20:00 [facility] THYROID STIMULATING 2019-03-05 03:20:00 [facility] HORMONE ESTIMATED GFR 2019-03-05 03:20:00 [facility] ANTI XA, UNFRACTIONATED 2019-03-05 02:14:00 Rojelio, Giovani Pandaist TROPONIN 2019-03-05 00:40:00 Rojelio, Giovani [facility] ECG 12-LEAD 2019-03-05 00:35:35 Rojelio, Giovani Gu[facility]ro [facility] ANTI XA, UNFRACTIONATED 2019-03-04 19:48:00 Rojelio, Giovani Pandaist TROPONIN 2019-03-04 15:29:00 Rojelio, Giovani Geurrero [facility] TROPONIN 2019-03-04 12:31:00 Rojelio, Giovani Guerrero [facility] XR CHEST 1 VW PORTABLE 2019-03-04 09:40:08 Rojelio, Giovani Harris BASIC METABOLIC PANEL 2019-03-04 09:35:00 Rojelio, Giovani craig [facility] ESTIMATED GFR 2019-03-04 09:35:00 Rojelio, Giovani Guerrero [facility] HC COMPLETE BLD COUNT 2019-03-04 09:30:00 Rojelio, Giovani craig [facility] W/AUTO DIFF PROTHROMBIN TIME WITH INR 2019-03-04 09:30:00 Rojelio, Giovani Harris PARTIAL THROMBOPLASTIN 2019-03-04 09:30:00 Rojelio, Giovani dias [facility] TIME (PTT) TROPONIN 2019-03-04 09:30:00 Rojelio, Giovani Gu[facility]ro [facility] B NATRIURETIC PEPTIDE 2019-03-04 09:30:00 Rojelio, Giovani craig [facility] ANTI XA, UNFRACTIONATED 2019-03-04 09:30:00 Rojelio, Giovani Harris RI CRITICAL CARE, E/M 2019-03-04 09:17:49 Rojelio, Giovani craig [facility] 30-74 MINUTES ECG ED PRELIMINARY 2019-03-04 09:17:49 Rojelio, Giovani Raciel [facility] INTERPRETATION ECG 12-LEAD 2019-03-04 09:17:24 Giovani Serrato [facility] Plan of Care Planned Activity Planned Date Details Comments Source Future Scheduled 2019-09-24 65+ PNEUMOCOCCAL [place] [facility] Test 00:00:00 VACCINE (1 of 1 - PPSV23) [code = 65+ PNEUMOCOCCAL VACCINE (1 of 1 - PPSV23)] Future Scheduled 2019-09-21 INFL[place]ENZA VACCINE [place] [facility] 00:00:00 [code = INFLUENZA VACCINE] Future Scheduled 2016-11-03 DIABETIC FOOT EXAM [place] [facility] Test 00:00:00 [code = DIABETIC FOOT EXAM] Future Scheduled 2016-01-08 DIABETES: RETINAL EYE [place] [facility] Test 00:00:00 EXAM [code = DIABETES: RETINAL EYE EXAM] Future Scheduled 2004 BREAST CANCER [facility] Test 00:00:00 SCREENING [code = BREAST CANCER SCREENING] Future Scheduled 2004 COLONOSCOPY SCREENING [facility] Test 00:00:00 [code = COLONOSCOPY SCREENING] Future Scheduled 2004 SHINGLES VACCINES (#1) [place] [facility] Test 00:00:00 [code = SHINGLES VACCINES (#1)] Future Scheduled 1975-09-24 Screening for [facility] Test 00:00:00 malignant neoplasm of cervix (procedure) [code = 562506328] Encounters Start End Encounter Admission Attending Care Care Encounter Source Date/Time Date/Time Type Type Clinicians Facility Department ID 2019-12-25 2019-12-25 Outpatient [facility] [id number] 00:00:00 00:00:[address] 2019-12-25 2019-12-25 Outpatient CRAIG BARBOSA [facility] [id number] 00:00:00 00:00:[address] 2019-11-25 2019-11-25 Outpatient FAMILIA CRAIG [place] [id number] 00:00:00 00:00:[address] 2019-11-20 2019-11-20 Outpatient CRAIG BARBOSA [facility] [id number] 00:00:00 00:00:[address] 2019-11-20 2019-11-20 Outpatient [facility] [id number] 00:00:00 00:00:[address] 2019-11-20 2019-11-20 Outpatient CRAIG BARBOSA [facility] [id number] 00:00:00 00:00:00 544 [facility] 2019-11-20 2019-11-20 Outpatient DAVIDSON [facility] [id number] [place] [address] 00:00:00 00:00:00 Opal WILLIS [facility] SHANTA 2019-11-16 2019-11-16 Emergency [place], [facility] [id number] 15:57:00 17:30:00 Cindy [place] [id number] [place] [id number] [place] [id number] 2019-07-25 2019-07-26 Outpatient JOSY [facility] [id number] 00:00:00 00:00:00 BRUNO 142 [facility] 2019-03-04 2019-03-19 Inpatient DEIDRE [facility] [id number] 00:00:00 00:00:00 ROSA 875 [facility] 2018-11-23 2018-11-25 Outpatient DEIDRE [facility] [id number] 00:00:00 00:00:00 ROSA 415 [facility] 2018-11-18 2018-11-20 Inpatient DEIDRE [facility] [id number] 00:00:00 00:00:00 ROSA 547 Method i Results Test Description Test Time Test Comments Results Result Comments Source POC glucose 2019-11-25 15:42:28 Test Item Value Reference Range Interpretation Comme [facility] POC glucose (test code = 56458-8) 106 mg/dL 65-99 H Wire Setter Name: Terra Payne ID: [id number] Lab Interpretation (test code = Abnormal 04581-1) [place] MethodistPeripheral [id number] 12:13:48Shanta Sin MD 11/25/2019 12:18 PMPeripheral Block Date/Time: 11/25/2019 12:01 PMPerformed by: Shanta Sin MDAuthorized by: Shanta Sin MD [facility] areaStart Time: 11/25/2019 11:41 AMEnd Time: 11/25/2019 12:04 PMStaff: Anesthesiologist: Shanta Sin MD Resident/COMPENSATION ADMINISTRATOR/AA: Sarah Soliz CRNA Performed by: Maxwell haneysiologistPreprocedure: patient identified, IV checked, site and side verified, risks and benefitsdiscussed, procedure verified, surgical consent complete, patient position confirmed, monitors and equipment checked, pre-op evaluation complete, site marked and timeout performed prior to procedure Pe ripheral Nerve Block: Patient Position: Supine and sitting Prep: ChloraPrep Monitoring: Blood pressure monitoring, continuous pulse oximetry and heart rateBlock Type: SupraclavicularLaterality: RightInjection Technique: Single injectionProcedures: ultrasound guided and nerve stimulator Ultrasound documentation: Printed/placed in chartLocal Infiltration (See MAR for details): LidocaineLoss of Twitch: 0.4 mANeedle: Needle Type: Pajunk Needle Gauge: 21 G Needle Length: 10 cmAssessment: Injection Assessment: Visualized needle/local anesthetic surrounding nerve, visualized pertinent vascular structures and nerves, needle tip visualized at all times during injection of medication, intermittent aspiration during local anesthetic administration and no symptoms of intraneural/intravenous injection Paresthesia Pain: None Heart Rate Change: No Slow Fractionated Injection: Yes Block outcome: No apparent complications and patient comfortableNotes: 5 ml of 2% lidocaine and 15 ml of 0.5% Ropivacaine fractionated injections around the right brachial nerve bundle localizedwith the Ultrasound and the nerve stimulator. Subcutaneous injection of 10 cc of the 2% lidocaine above the right axilla.Medications AdministeredRopivacaine 0.5 % PF (mL), [facility] MethodistType and screen 2019-11-25 11:11:00 Test Item Value Reference Range Interpretation Comments ABO grouping (test code = 883-9) A Rh type (test code = 17657-1) POS Antibody screen (gel) (test code = NEG 890-4) [place] MethodistComprehensive metabolic [id number] 10:29:12 Test Item Value Reference Range Interpretation Comments Sodium (test code = 2951-2) 138 135- 148 mEq/L Potassium (test code = 2823-3) 4.3 3.5- 5.0 mEq/L Chloride (test code = 5-0) 103 98- 112 mEq/L CO2 (test code = 2027-) 23 24- 31 mEq/L L Anion gap (test code = 07345-6) 12@ANIO 7- 15 mEq/L BUN (test code = 3094-0) 33 mg/dL 8-23 H Creatinine (test code = 2160-0) 3.10 mg/dL 0.5-0.9 H Glucose (test code = 2345-7) 170 mg/dL 65-99 H Calcium (test code = 80840-6) 9.5 mg/dL 8.8-10.2 Protein (test code = 2885-2) 7.8 g/dL 6.3-8.3 Albumin (test code = 1751-7) 3.8 g/dL 3.5-5 A/G ratio (test code = 1759-0) 1.0 0.7-3.8 Alkaline phosphatase (test code = 106 U/L 35-104 H 6768-6) AST (test code = 1920-8) 20 U/L 10-35 ALT (test code = 1742-6) 9 U/L 5-50 Total bilirubin (test code = 0.3 mg/dL 0.2-1.2 1974-03) Lab Interpretation (test code = Abnormal 44434-0) Cesar MethodistEstimated [id number] 10:29:10 Test Item Value Reference Range Interpretation Comments Estimated GFR (test 15 mL/min/1.73 m2 [place] Miriam jimenez Units code = 5488) InterpretationG 1 >=90 Mallory l or highG2 60-89 Mildly decrease dG3a 45-59 Mil dly to moderately decr glzqyR1h 30-44 Moderately to s everely decreasedG4 15-29 Severe ly decreasedG5 <15 Kidney kelsey lureThe eGFR was calcul ated using the Chron ic Kidney Disease Epidemiology Collaboration ( CKD-EPI) equation. Interpretation is based on recommendati ons of the National Ki dney Foundation-Kidn ey Disease Outcome s Quality Initiat ibis (NKF-KDOQI) pub lished in 2013. Lab Interpretation Abnormal (test code = 66374-1) Cesar PandaistPartial thromboplastin time, [id number] 10:21:08 Test Item Value Reference Range Interpretation Comments PTT (test code = 34.4 23.0- 36.0 sec PTT thera peutic range for 3173-2) unfractionated heparin is61.0-112.0 se conds which corresponds to Anti-Xa0.3-0.7 U/ml. Cesar HarrisProthrombin time with [id number] 10:20:55 Test Item Value Reference Range Interpretation Comments Prothrombin time (test 13.9 11.5- 14.5 sec code = 5902-2) INR (test code = 1.1 The Interna tional 36443-3) Normalized Rati o (INR) is a therapeutic m onitoring tool for patien ts who are stable on oral anticoagulant t herapy. An INR of 2.0-3.0 is suggested for d eep vein thrombosis/pulm onary embolism. Cesar HarrisECG Pre/Post [id number] 00:50:23 Test Item Value Reference Range Interpretation Comments Ventricular rate (test 66 code = 253) Atrial rate (test code 66 = 255) RI interval (test code 142 = 266) QRSD interval (test 162 code = 260) QT interval (test code 510 = 264) QTC interval (test code 534 = 265) P axis 1 (test code = -16 267) QRS axis 1 (test code = 43 268) T wave axis (test code -67 = 270) EKG impression (test ^^^ Suspect code = 273) unspecified pacemaker izspbbp-Pnpjam-rigxru ventricular-paced rhythm-Abnormal ECG-In automated comparison with ECG of 25-JUL-2019 10:32,-Vent. rate has increased BY 6 BPM- Cesar HarrisCOVID-19 qualitative [id number] 03:57:13 Test Item Value Reference Range Interpretation Comments Interpretation (test Negative results do code = 7902037) not preclude 2019-nCoV infection and should not be used as the sole basis for treatment or other patient management decisions. Negative results must be combined with clinical observations, patient history, and epidemiological information. COVID-19 qualitative Not-Detected Not-Detected PCR result (test code = 02525-8) COVID-19 qualitative See link below for C ase Number: PCR (test code = PDF Lab Report [id number]) Cesar MethodistXR Chest 2 [id number] 18:43:49Hm Interface, Radiology Results - 11/20/2019 6:46 PM CDTEXAMINATION: XR CHEST 2 VWCLINICAL HISTORY: Z01.818 Encounter for other preprocedural examination, Routine CXR pre-op high- risk surgery, Pre OP TestingCOMPARISON: Chest x-ray 07/25/2019IMPRESSION: Single frontal view reveals stable prominence of cardiac silhouette and pulmonary vasculature with right-sided hemodialysis catheter and left AICD/pacemaker in place. Lungs without a consolidative process. Remainder of the examination is un changed.[facility]-[id number] MethodistHemoglobin [id number] 18:21:48 Test Item Value Reference Range Interpretation Comments Hemoglobin A1C (test 6.9 % 4-5.6 H HbA1c c utoffs for code = 92384-6) diagnosing diabetes:4.0% - 5.6% = normal5.7% - 6.4% = increased risk for diabetes (prediabetes)9> =6.5% = ezpoxykg7Umix s for glycemic contro l (ADA 2016)< 7.0% Ta rget for non adults with miranda betes. More or less stringent targe ts may be appropriate for individual elliot ents. <7.5% Target for Children and adolescents wit h type 1 diabetes. Lab Interpretation (test Abnormal code = 35065-8) Guerrero MethodistCBC with platelet and [id number] 18:11:11 Test Item Value Reference Range Interpretation Comments WBC (test code = 21938-5) 6.1 4.5- 11.0 k/uL RBC (test code = 50343-4) 3.15 m/uL 4.2-5.5 L HGB (test code = 718-7) 10.7 g/dL 12-16 L HCT (test code = 4544-3) 33.8 % 37-47 L MCV (test code = 787-2) 107.3 fL 82-100 H MCH (test code = 785-6) 34.0 pg 27-34 MCHC (test code = 786-4) 31.7 g/dL 31-37 RDW - SD (test code = 00389-3) 50.0 fL 37-55 MPV (test code = 71449-7) 10.8 fL 6.9-11 Platelet count (test code = 154 K/uL 150-400 43181-2) Nucleated RBC (test code = 85353-5) 0.00 /100 WBC Neutrophils (test code = 24410-2) 71.6 % 39-69 H Lymphocytes (test code = 56672-8) 17.0 % 25-45 L Monocytes (test code = 45532-7) 7.8 % 0-10 Eosinophils (test code = 54436-6) 3.0 % 0-5 Basophils (test code = 45849-4) 0.3 % 0-1 Immature granulocytes (test code = 0.3 % 0-1 01322-8) Lab Interpretation (test code = Abnormal 48612-8) Guerrero MethodistHepatitis B surface [id number] 15:41:54 Test Item Value Reference Range Interpretation Comments Hepatitis B surface Ag (test Non-reactive Non-reactive code = 5195-3) [place] MethodistECG 12 [id number] 13:16:05 Test Item Value Reference Range Interpretation Comments Ventricular rate (test 60 code = 253) Atrial rate (test code = 60 255) RI interval (test code = 176 266) QRSD interval (test code 170 = 260) QT interval (test code = 632 264) QTC interval (test code = 632 265) P axis 1 (test code = -11 267) QRS axis 1 (test code = 199 268) T wave axis (test code = 36 270) EKG impression (test code AV dual-paced = 273) rhythm-Electronicall y Signed By Brandon Waller MD ([id number]) on 07/25/2019 1:16:03 PM Cesar PandaistXR Chest 1 [id number] 11:49:59Hm Interface, Radiology Results Incoming - 07/25/2019 11:53 AM CDTExamination: XR CHEST 1 PORTABLEClinical history: "pneumothorax" Comparison: 03/19/2019 IMPRESSION: Indwelling support [...] The bones of the chest are unchanged. [facility]-[id number] [facility] Electrophysiology [id number] 09:52:56REASON FOR PROCEDURE: 1. Severe ischemic cardiomyopathy. 2. [place] Heart Association class 3 congestive heart failure. 3. Intraventricular conduction delay. PROCEDURE PERFORMED: Biventricular implantable cardioverter-defibrillator implant. ANESTHESIA: Moderate sedation services were provided and ordered by myself overseeing the Registered Nurse administration of the sedating agents and monitoring of the patient's condition per protocol for a total of 40 minutes COMPLICATIONS: None. ESTIMATEDBLOOD LOSS: 10 mL. DESCRIPTION OF PROCEDURE: The patient was prepped in the usual sterile fashion.Local lidocaine infiltration of the skin and subcutaneous tissue was performed. A scalpel was used to make an incision in the left chest just below the clavicle and a pocket was created in the prepectoral fascial layer. We accessed the left axillary vein x 3 and J-wires x 3 were advanced into the inferior vena cava. 7-Australian sheath was placed over one of the J wires. A defibrillator lead advanced through the sheath and positioned in the right ventricular apex and secured to the myocardium. The sensed R-wave was 17 millivolts, pacing impedance 740 ohms, and pacing threshold 0.75 volts at 0.5 milliseconds. There was no diaphragmatic capture with 10-volt pacing. The lead was secured with 0-Ethibond suture x2 over the collar. A 6-Australian sheath was placed over the second J-wire and a pacing lead was advanced through the sheath and placed in the heart. The sheath was peeled away. A 9-Australian sheath was placed over the final J-wire and a coronary sinus guiding sheath was advanced over the wire and placed in the heart. Using this and an AL2 catheter, we cannulated the coronary sinus where balloon occlusive venography was performed demonstrating a lateral branch. Over an 0.014 wire, we advanced an LV lead to the mid portion of the vessel where we had a pacing threshold 1.25 volts at 0.5 milliseconds, the pacing impedance of 1150 ohms, and there was no diaphragmatic capture with 10-volt pacing. The outer sheath was peeled away and the CS sheath was slit. The lead was secured with 0 Ethibond sutures x 2 over the Silastic collar. A J-tipped stylet was used to position the atrial lead in the right atrial appendage and was secured to the myocardium. The sensed P-wave 4 millivolts, pacing impedance 430 ohms, pacing threshold 1.25 volts at 0.5 milliseconds. There was no diaphragmatic capture with 10-volt pacing. The leads was secured with 0 Ethibond suture x2 over the Silastic collar. The pocketwas then flushed with antibiotic and saline solution. Bovie cautery was used to achieve hemostasis. The leads were then attached to the generator and the generator and leads were placed in the pocket. The generator was secured with a stitch. The pocket was then closed with running layers of 0-0, 3-0,and 4-0 Vicryl sutures in fascia, subcutaneous, subcuticular layers. Dermabond and a Dermanet dressing were applied.[facility] [id number] 07:16:39 Test Item Value Reference Range Interpretation Comments POC sodium (test code 139 mmol/L 135-148 = 2947-0) POC potassium (test 4.3 mmol/L 3.5-5 code = 6298-4) POC chloride (test 104 mmol/L 99-109 code = 2069-3) POC CO2 (test code = 24 mmol/L 24-31 50053-8) POC glucose (test code 104 mg/dL 65-99 H = 2339-0) POC BUN (test code = 50 mg/dL 8-24 H 6299-2) POC creatinine (test 3.9 mg/dl 0.5-0.9 H code = 28070-6) POC hematocrit (test 37 % 37-47 code = 4544-3) POC anion gap (test 17 mmol/L 8-20 Wire Setter Name: Sheth code = 3785483) TeresitaDevi ce ID: [id number] Lab Interpretation Abnormal (test code = 40787-3) [facility] MethodistHepatitis B surface Ab, oclyqveehpvs5882-90-32 18:52:09 Test Item Value Reference Range Interpretation Comments Hepatitis B surface 4.53 IU/L The anti -HBs is less than Ab (test code = 10 IU/L and is therefore 5193-8) negative. There is no evidence of rec overy from hepatitis B inf ection or evidence of ant ibody response to HBV vaccination.An anti-HBs result greater than or equal to 10 IU/ L implies immunity. For post-vaccinatio n antibody testing guideli antonia for the general public refer to MMWR January 212004/Vol. 54(No. 16);- , and for healthcare work ers refer to MMWR January 212012/Vol. 62(No. 10);-19 .Reference Interval: anti- HBs 9.99 IU/L or less .. ..... Tzxzwupi94.00 I U/L or greater .... PositiveResults greater than 1,000.00 I U/L are reported as gre ater than 1,000.00 IU/L. This assay should not be u sed for blood donor scr eening, associated re-e ntry protocols, or f or screening Human Cell, Tis sues and Cellular and Ti ssue-Based Products (HCT/P ).Performed by BETHANY quezada,[address] [place] [address], [facility] [place] [address] wco .[employer] , Yao Swenson MD, Lab. Director [facility] MethodistManual ocgvwyaxuqkq6616-35-89 12:22:21 Test Item Value Reference Range Interpretation Comments Manual differential (test code = PERFORMED 51218-7) Neutrophils (test code = 66.0 % 39-69 20979-9) Lymphocytes (test code = 22.0 % 25-45 L 89151-7) Monocytes (test code = 53465-2) 8.0 % 0-10 Eosinophils (test code = 4.0 % 0-5 36456-0) Basophils (test code = 27716-1) 0.0 % 0-1 Metamyelocytes (test code = 0 % 740-1) Promyelocytes (test code = 0 % 783-1) Platelet slide review (test code Dafne adequate = 94616-0) Anisocytosis (test code = 702-1) Moderate Lab Interpretation (test code = Abnormal 53622-6) [facility] MethodistBasic metabolic fegzh4395-48-60 07:04:44 Test Item Value Reference Range Interpretation Comments Sodium (test code = 2951-2) 136 135- 148 mEq/L Potassium (test code = 2823-3) 4.5 3.5- 5.0 mEq/L Chloride (test code = 2075-0) 99 98- 112 mEq/L CO2 (test code = 8-9) 22 24- 31 mEq/L L Anion gap (test code = 51272-6) 15@ANIO 7- 15 mEq/L BUN (test code = 3094-0) 31 mg/dL 8-23 H Creatinine (test code = 2160-0) 2.14 mg/dL 0.5-0.9 H Glucose (test code = 2345-7) 164 mg/dL 65-99 H Calcium (test code = 07933-6) 8.3 mg/dL 8.8-10.2 L Lab Interpretation (test code = Abnormal 82165-0) [facility] MethodistHepatitis B core antibody iybeq5133-05-43 14:06:34 Test Item Value Reference Range Interpretation Comments Hepatitis B core total Ab (test Non-reactive Non-reactive code = 63726-7) [facility] MethodistHepatitis C wlovqegl3975-17-94 14:06:34 Test Item Value Reference Range Interpretation Comments Hepatitis C Ab (test code = Non-reactive Non-reactive 27318-3) [facility] MethodistHepatitis B surface [id number] 13:22:24 Test Item Value Reference Range Interpretation Comments Hepatitis B surface Ab (test Non-reactive Non-reactive code = 94443-1) [facility] MethodistIR Tunneled Dialysis Catheter Jbtgpcwzj9685-95-87 16:40:22Hm Interface, Radiology Results 03/14/2019 4:43 PM CSTTunneled Dialysis Catheter PlacementPre-Procedure Diagnosis: Chronic kidney diseasePost-procedure Diagnosis:Chronic kidney diseaseOperator: Ramakrishna AraujoSped Teacher: NoneAnesthesia/Sedation:Level of anesthesia: None (IV pain medication and lid ocaine)Medications used: Fentanyl only, 1% LidocaineRadiation exposure: 11 mGyEstimate blood loss: <5 mL Blood administered: NoneComplications: NoneImplants/Grafts: 14.5 Australian 19 cm cuffed tunneleddialysis catheterSpecimen: NoneProcedure:Informed consent was obtained and the patient positioned supine in the fluoroscopy suite. A timeout was performed, followed by preliminary ultrasound of the right internal jugular vein (see findings below). The right neck and chest were prepped and draped in standard sterile fashion.Using real- time ultrasound guidance a 21 gauge vascular needle was used to access the right internal jugular vein. An image was stored in the electronic medical record. A wire was advanced into the IVC under fluoroscopy and the needle exchanged for a peel-away sheath.A skin incision was made inferior to the clavicle and the catheter tunneled to the venous access site. The catheter was then deployed through the peel-away sheath and positioned with the tip at the superior atriocaval junction/right atrium.At the end of the procedure the catheter was flushed, packed with heparinsolution, secured to the skin and a sterile dressing applied. The patient tolerated the procedure well and without immediate complication.Findings:Patent right internal jugular vein as demonstrated by normal ultrasound compressibility.Impression:Successful placement of a tunneled right internal jugular vein dialysis catheter under moderate sedation.[facility] MethodistIonized rfwehzc5301-15-93 06:04:27 Test Item Value Reference Range Interpretation Comments pH (test code = 2753-2) 7.65 Ionized calcium (test code = 0.86 mmol/L 1.11-1.32 L ) Lab Interpretation (test code = Abnormal 90212-3) [facility] MethodistMagnesium oxbzu1494-99-50 06:02:51 Test Item Value Reference Range Interpretation Comments Magnesium (test code = 91064-9) 2.1 mg/dL 1.6-2.4 [facility]istPh[facility] ispgz6687-53-56 06:02:45 Test Item Value Reference Range Interpretation Comments Phosphorus (test code = 2777-1) 3.3 mg/dL 2.4-4.5 [facility] RenaissanceistActivated clotting [id number] 12:08:16 Test Item Value Reference Range Interpretation Comments Activated clotting 121 96- 152 sec Wire Setter Name: Kati lr (test code = JamesKevon scottjesús ID: [id number]) [id number] [facility] rlutcxbh8360-01-03 02:07:28 Test Item Value Reference Range Interpretation Comments WBC (test code = 51300-8) 4.39 4.50- 11.00 k/uL L RBC (test code = 74599-4) 2.97 m/uL 4.2-5.5 L HGB (test code = 718-7) 9.1 g/dL 12-16 L HCT (test code = 4544-3) 29.2 % 37-47 L MCV (test code = 787-2) 98.3 fL 82-100 MCH (test code = 785-6) 30.6 pg 27-34 MCHC (test code = 786-4) 31.2 g/dL 31-37 RDW - SD (test code = 55958-6) 59.0 fL 37-55 H MPV (test code = 41346-2) 11.2 fL 8.8-13.2 Platelet count (test code = 141 150- 400 k/uL L 95260-6) Nucleated RBC (test code = 0.70 /100 WBC 74891-2) Lab Interpretation (test code = Abnormal 73692-8) [facility] MethodistArterial blood [id number] 06:18:09 Test Item Value Reference Range Interpretation Comments pH, arterial (test code = 2744-1) 7.39 7.35-7.45 pCO2, arterial (test code = 40 35- 45 mmHg 2018-) pO2, arterial (test code = 73 80- 90 mmHg L 2703-7) Bicarbonate, arterial (test code 23.7 mmol/L 21-28 = 1960-4) Base excess, arterial (test code -1 -2 - 2 mEq-L = 1925-7) O2 saturation, arterial (test 95 % 95-100 code = 2708-6) Lab Interpretation (test code = Abnormal 69185-9) [facility] MethodistIonized calcium, wngepkdv3424-58-01 14:03:20 Test Item Value Reference Range Interpretation Comments Ionized calcium, arterial (test 1.11 mmol/L 1.11-1.32 code = 78964-8) [facility] MethodistGlucose level, [id number] 11:24:52 Test Item Value Reference Range Interpretation Comments Glucose, syringe (test code = 238 mg/dL 65-99 H 2345-7) Lab Interpretation (test code = Abnormal 51985-8) [facility] MethodistHemoglobin, [id number] 11:24:52 Test Item Value Reference Range Interpretation Comments Hemoglobin, syringe (test code = 9.7 g/dL 12-16 L 718-7) Lab Interpretation (test code = Abnormal 55669-1) [facility] MethodistLactic acid, blhncgp1628-49-19 11:24:52 Test Item Value Reference Range Interpretation Comments Lactic acid, syringe (test code = 2.0 mmol/L 0.5-2.2 94396-1) [facility] MethodistPotassium, [id number] 11:24:52 Test Item Value Reference Range Interpretation Comments Potassium, syringe (test code = 2008) 4.8 3.5- 5.0 mEq/L [facility] MethodistSodium level, [id number] 11:24:52 Test Item Value Reference Range Interpretation Comments Sodium, syringe (test code = 2947-0) 135 135- 148 mEq/L [facility] SbmnbiyhdCOY9143-16-64 09:06:46Zohaib Lackey MD 03/11/2019 9:10 AMProcedure Performed: RASHEL Start Time: End Time: Preanesthesia Checklist:Patient identified, IV assessed, risks and benefits discussed, monitors and equipment assessed, procedure being performed at surgeon's request, anesthesia consent obtained. General Procedure InformationDiagnostic Indications for Echo: hemodynamic monitoringPhysician Requesting Echo: Kaiden Peter MDLocation performed: ORIntubatedBite block not placedHeart visualiz edProbe Insertion: EasyProbe Type: MultiplaneModalities: 2D only, color flow mapping, continuous wave Doppler and contrast Echocardiographic and Doppler Measurements Ventricles Right Ventricle:Cavity size normal. Hypertrophy not present. Thrombus not present. Global function moderately impaired. Ejection Fraction 30%. Left Ventricle:Cavity size dilated. Hypertrophy present. Thrombus not present. Global Function moderately impaired. Ejection Fraction 30%. Valves Aortic Valve:Annulus normal. Stenosis not present. Regurgitation +1. Leaflets normal. Leaflet motions normal. Mitral V alve:Annulus calcified. Stenosis not present. Regurgitation +3. Leaflets thickened. Leaflet motions normal. Tricuspid Valve:Annulus normal. Stenosis not present. Regurgitation +2. Leaflets normal. Leaflet motions normal. Aorta Ascending Aorta:Size normal. Dissection not present. Plaquethickness less than 3 mm. Mobile plaque not present. Aortic Arch:Size normal. Dissection not present. Plaque thickness less than 3 mm. Mobile plaque not present. Descending Aorta:Size normal. Dissection not present. Plaque thickness less than 3 mm. Mobile plaque not present. Atria Right At rium:Size normal. Spontaneous echo contrast not present. Thrombus not present. Tumor not present. Device not present. Left Atrium:Size normal. Spontaneous echo contrast not present. Thrombus not present. Tumor not present. Device not present. Septa Atrial Septum:Intra-atrial septal morphology normal. Ventricular Septum:Intra-ventricular septum morphology normal. Other FindingsPericardium: normalPleural Effusion: none Anesthesia InformationPerformed PersonallyAnesthesiologist: Cj Shelton MD [facility] MethodistPrepare [id number] 09:06:00 Test Item Value Reference Range Interpretation Comments Product name (test code Red Blood Cells -1, = 25) Leukored Unit number (test code [id number] = 8140733) Product code (test code L0144D00 = 3092) Dispense status (test Transfused code = 24) Blood expiration date (test code = 302) Blood type code (test 6200 code = 308) Blood type (test code = A POSITIVE 1314) Compatibility (test Compatible code = 6400) [facility] MethodistCentral [id number] 09:05:48Zohaib Lackey MD 03/11/2019 9:06 AMCentral linePerformed by: Zohaib Lackey MDAuthorized by: Cj Shelton MD Patient Location: ORStaff: Anesthesiologist: Cj Shelton MD Resident/COMPENSATION ADMINISTRATOR/AA: Zohaib Lackey MD Performed by: Resident/COMPENSATION ADMINISTRATOR/AAPreprocedure:patient identified,IV checked, site and side verified, risks and benefits discussed, procedure verified, surgical consent complete, patient position confirmed, monitors and equipment checked and pre-op evaluation complete MSBT: antiseptic used during central venous catheter insertion, all elements of maximal sterile barrier technique followed, hand hygiene performed prior to central venous catheter insertion, cap/gownused by other personnel during central venous catheter insertion, solutions labeled and all ports not used during insertion clamped Indications: Indications: Vascular accessAnesthesia: Anesthesia: GeneralProcedure details: Patient position: Trendelenburg Catheter Type: Double lumen Catheter Size: 9 Fr Catheter Site: internal jugular vein Catheter site laterality: Right Pre-procedure: Landmarks identified Ultrasound guidance used: Yes Ultrasound image saved: Yes Number of attempts: 1 Successful placement: Yes Guidewire removal: Guidewire removal is confirmed Post-procedure: Post- procedure: line sutured and sterile dressing applied per protocol Post- procedure: Blood cleaned with CHG and sterile caps on all hubs Assessment: Blood return through all ports and free fluid flow Patient tolerance: Patient tolerated the procedure well with no immediate complicationsDoctors Hospital At Renaissanceist Arterial [id number] 09:05:00Zohaib Lackey MD 03/11/2019 9:05 AMArterial linePerformed by: Zohaib Lackey MDAuthorized by: Cj Shelton MD Patient Location: ORStaff: Anesthesiologist: Cj Shelton MD Resident/COMPENSATION ADMINISTRATOR/AA: Zohaib Lackey MD Performed by: Resident/COMPENSATION ADMINISTRATOR/AAPre- procedure: patient identified, IV checked, site and side verified, risks and benefits discussed, procedure verified, surgical consent complete, patient position confirmed, monitors and equipment checked and pre-op evaluation compl ete MSBT: antiseptic used, all elements of maximal sterile barrier technique followed, hand hygieneperformed, cap/gown used by other personnel and solutions labeled Indications: Indications: multiple ABGs and hemodynamic monitoring Anesthesia: Anesthesia: GeneralProcedure Details: Arterial Line placement: Placed post induction Line placement site: RadialLine placement side: Right Arterial line gauge: 20 GNumber of attempts: 1 Ultrasound guidance used: Yes Post-procedure: Post-procedure: Sterile dressing applied Post procedure circulation, sensation, movement: Normal and unchanged Patient tolerance: Patient tolerated the procedure well with no immediate complicationsCarondelet Healtharun AcofrsfuyDawlee3469-51-46 09:04:16Zohaib Lackey MD 03/11/2019 9:04 AMAirwayPerformed by: Zohaib Lackey MDAuthorized by: Cj Shelton MD Location: ORDifficult Airway: No Anesthesiologist: Cj Shelton MDPerformed by: anesthesiologistPreoxygenated with 100% O2: Yes C-spine Precautions Maintained Throughout: Yes Mask Ventilation: Easy maskFinal Airway Type: Endotracheal airwayFinal Endotracheal Airway: ETT - double lumen leftBlade Type: MillerLaryngoscope Blade/Videolaryngoscope Blade Size: 2ETT D ouble Lumen (fr): 37Placement Verified by: CO2 detection, direct visualization and fiber optic visualization Rapid Sequence Induction (RSI): No Modified RSI: No Number of Attempts at Approach: 1[facility] MethodistArterial blood gas, [id number] 08:37:11 Test Item Value Reference Range Interpretation Comments pH, arterial (test code = 2744-1) 7.44 7.35-7.45 pCO2, arterial (test code = 2018-) 32 35- 45 mmHg L pO2, arterial (test code = 2703-7) 250 80- 90 mmHg H Temperature, Celsius (test code = 37.0 Degrees C 8310-5) O2 saturation, arterial (test code = 100 % 95-100 2708-6) pH, arterial corrected (test code = 7.44 93293-6) pCO2, arterial corrected (test code 32 mmHg = 10777-8) pO2, arterial corrected (test code = 250 mmHg 05666-3) Base excess, arterial (test code = -2 -2 - 2 mEq-L 1924-7) Lab Interpretation (test code = Abnormal 13762-7) [facility] MethodistT4, [id number] 11:17:55 Test Item Value Reference Range Interpretation Comments T4, free (test code = 3024-7) 1.4 ng/dL 0.9-1.7 [facility] MethodistThyroid stimulating rxjuqjg0815-11-05 11:17:55 Test Item Value Reference Range Interpretation Comments TSH (test code = 3016-3) 1.00 0.27- 4.20 uIU/mL [place] MethodistLipid [id number] 11:13:37 Test Item Value Reference Interpretation Comments Range Cholesterol (test 178 mg/dL <200 code = 3-3) Triglycerides (test 172 mg/dL <150 H code = 2571-8) HDL cholesterol 42 mg/dL >40 (test code = 2084-9) LDL cholesterol 103 mg/dL <100 H Result obtai elizabeth by direct (test code = 2088-) LDL yvonne surement Lipid panel SeeBelow Total Cholester ol (mg/dL) interpretation (test < 200 code = 05894-2) Desirable 200-239 Borderline -high >=240 Hi gh Triglyceri jessie (mg/dL) <150 No rmal 150-199 Borderline-high 200-499 High >=500 Very high HDL Choles terol (mg/dL) <40 Low (male) < 40 Low (female) L DL Cholesterol (mg /dL) <100 Optimal 1 00-129 Near or above o ptimal 130-159 Borderline-high 160-189 High >=190 Very high Risk Cat ergories that modify LDL goals.Risk Catergories LDL goal (mg/dL )CHD and CHD risk equiva lent <100 (10-year risk >20%)Multiple ( 2+) risk factors < 130 (10-year risk = <20%)0-1 risk factors <160 (<10-ye ar risk) Defining levels of lipids in metabolic syndromeTriglyc erides > =150 mg/dLHDL Choles terol Men <40 mg/dL Women <40 mg/dL Non-HDL cholest day[place] is a second target f or therapy in personswith high triglycerides ( >=200 mg/dL) Lab Interpretation Abnormal (test code = 39359-6) [facility] MethodistHepatic function [id number] 11:13:35 Test Item Value Reference Range Interpretation Comments Albumin (test code = 2.7 g/dL 3.5-5 L 1-7) Total bilirubin (test 0.4 mg/dL 0-1.2 code = 1974-) Bilirubin direct (test <0.2 0-0.3 code = 1967-7) Alkaline phosphatase 57 U/L 35-104 (test code = 6768-6) Protein (test code = 7.5 g/dL 6.3-8.3 Shafter 9994.6-7.0 2885-2) g/dL1 bvkz0371.4-7.6 g/dL7 months-3nvdq543 .1-7 .3 g/dL1-2 .6-7.5 g/dL>3 .0-8.0 g/pE54-2042917. 3-8. 3 g/dL ALT (test code = 1742-6) 28 U/L 5-50 AST (test code = 1920-8) 89 U/L 10-35 H Lab Interpretation (test Abnormal code = 65296-6) [facility] MethodistCath lab uflynwdjv2533-48-59 12:57:11FIRST TELEGRAPH PLANT MAINTAINER:None.PREOPERATIVE DIAGNOSES:1. Acute non-ST elevation myocardial infarction.2. Status post multivessel percutaneous coronary intervention.POSTOPERATIVE DIAGNOSES:1. Acute non-ST elevation myocardial infarction.2. Status post multivessel percutaneous coronary intervention.TITLE OF OPERATION:Left heart catheterization, selective coronary arteriogram without leftventriculogram.ANESTHESIA:Conscious sedation with Versed and fentanyl.ESTIMATED BLOOD LOSS:10 mLCOMPLICATIONS:None.OPERATIVE COURSE:After informed consent was obtained from the patient and with appropriatetime-out procedurewas called, the patient was placed on the cardiaccatheterization table. Both groins were cleaned and prepared in the usualfashion and the right groin chosen for access. She received conscious sedationwith Versed and fentanyl and tolerated this well. She was continuouslymonitored by myself and the ci rculating nurse including end-tidal CO2,oxygenation, blood pressure, heart rate, and respiration. The right groin wasthen infused with 1% Xylocaine without epinephrine and the artery enteredwithout difficulty using a standard 18-gauge AMC needle. A short 5-Frenchsheath was chosen for access. In sequential fashion, JL4, 3DRC, and pigtailcatheters were inserted. Multiple orthogonal views were takenof the leftcoronary and only a single shot of the right as it was a nondominant vessel. Left ventricular pressures were obtained, but no left ventriculogram done due todye considerations. The studies were then carefully reviewed. The patient hasan extremely short left main. The LAD itself has diffuse proximal 30% to 40%stenosis. There are at least 2 and possibly 3 layers of stents from immediatelyafter the first septal cullet trucker bridging the diagonal and approximately 2 cmdistally. There is anarea of incomplete stent expansion proximally bridgingthe diagonal with 80% to 85% stenosis after the area above. The circumflex isdominant vessel. There are patent stents in the large OM1. The circumflexgroove and all posterolateral and distal obtuse marginal branches are patent. The posterior descending is also widely patent. The RCA is a nondominantvessel. No left ventriculogram was done. His noninvasive imaging showsejection fraction in the 30% to 34% range, but post- stress ejection fractionnoted on PET scanning done prior to the visit was only 18%.As a result of all of above, the procedure was terminated at that point. Shewas taken off the catheterization table and transported back to the PACU forsheath removal. She will be admitted to the cardiac floor for observation andmedical stabilization following this. At this time, I am strongly consideringher for single vessel coronary bypass to the LAD.[facility] HEMODIALYSIS CATHETER [id number] 22:42:20Gail Evans MD 03/08/2019 10:44 PMHemodialysis catheter placementDate/Time: 03/08/2019 10:42 PMPerformed by: Gail Evans, MDAuthorized by: Dayne Patterson MD Consent: Consent obtained: Written Consent given by: Patient Risks discussed: Arterial puncture, incorrect placement, infection, bleeding, nerve damage and pneumothorax Alternatives discussed: No treatmentUniversal protocol:Procedure explained and questions answered to patient or proxy's satisfaction: yes Relevant documents present and verified: yes Test results available and properly labeled: yes Imaging studiesavailable: yes Required blood products, implants, devices, and special equipment available: yes Site/side marked: yes Immediately prior to procedure, a time out was called: yes Patient identity confirmed: Provided demographic data, hospital-assigned identification number and verbally withpatientPre-procedure details: Indication: Vascular access for HD Hand hygiene: Hand hygiene performed prior to insertion Sterile barrier technique: All elements of maximal sterile technique followed Skin preparation: ChloraPrepAnesthesia (see MAR for exact dosages): Anesthesia method: Local infiltration Local anesthetic: Lidocaine 1% w/o epiProcedure details: Procedure supplies: Temporary dialysis catheter Catheter size: 24 Catheter Site Laterality: RightPost-procedure details: Post-procedure: Dressing applied and line sutured Patient tolerance of procedure: Tolerated well, no immediate complicationsColumb[facility]ilysRobert [facility] [id number] 18:46:23 Test Item Value Reference Range Interpretation Comments Urine culture Mixed demetrice Specimen isolate (test 10-4 col/cc InformationSpe [facility] code = 00416-3) Source: Urin eSpecimen Site: [facility] CenterG[facility] [id number] 18:46:23Gram stain resultRare WBC'sRare Gram positive rods Comment: Specimen InformationSpecimen Source: UrineSpecimen Site: [facility] Methodsan [facility] centerB natriuretic [id number] 12:13:01 Test Item Value Reference Range Interpretation Comments BNP (test code = 34199-0) 961 pg/mL 0-100 H Lab Interpretation (test code = Abnormal 37142-4) [facility] Andujarmear wegoue4908-22-16 10:46:12 Test Item Value Reference Range Interpretation Comments Platelet slide review (test code = Decreased A 38930-8) Anisocytosis (test code = 702-1) Moderate Ovalocytes (test code = 774-0) Moderate Lab Interpretation (test code = Abnormal 12938-2) [facility] Pj carotid [id number] 08:08:00Interface, Radiology Results In - 03/07/2019 8:08 AM [facility] Vascular Ultrasound Laboratory Carotid Artery Duplex [address] [place] [address] For software quality assurance analyst purposes, the categorization of the degree of the stenosis of this exam is based on criteria described in the IAC carotid stenosis grading white paper( www.intersocietal.org/Vascular) and Julia Sauceda, Jimmy Avila, et al. Carotid artery stenosis: adams-scale and Doppler US diagnosis--Society of Radiologists in Ultrasound Consensus Conference. Radiology. 2003 Nov; 229(2):340-6. Pat.Name: JULEE KENNEY Pat.ID: [id number] .Date: 03/06/2019 Refer.MD: SANJAY KEBEDE MD Exam Time: 3:12:00 PM Study Type:Carotid Height: 65in Weight: 183lb BSA: 1.91 m2 Age: 8 1955,63Y Sex: FEMALE BP: 122/57 Sonogrphr: Ana Feliz RDCS, RVTPat. Stat.:Inpatient Room: [facility] A Tape Vol: ED, CPT - 4: 22760 Echo Event ID:[id number] Order ID: [id number] Reason for Study:Carotid disease Procedures: Colorflow, Grayscale/2D, Pulsed wave DopplerRace: C SUMMARY: PHYSICAL ASSESSMENT Blood Pulses Carotid Pressure Carotid Temporal BruitRight 122/57 + + 0Left IV + + 0CAROTID ARTERY SCANRIGHT: There is hard plaque in the common carotid artery. There ishard plaque noted in the bulb extending into the proximal internalcarotid and ostia of the external carotid artery. Colorflow is normal.LEFT: There is hard plaque in the common carotid artery. There ishard plaque noted in the bulb extending into the proximal internal andexternal carotid artery. Colorflow is normal. PRELIMINARY FINDINGS1. <50% stenosis in the bulb and internal carotid artery,bilaterally. 2. <50% stenosisin the external carotid artery, bilaterally.3. Antegrade vertebral artery flow bilaterally.PHYSICIANINTERPRETATION Bilateral carotid duplex examination demonstrated atheroscleroticplaques in the bulbs/ CCAs. Less than 50% stenosis in the bulb and internal carotid artery,bilaterally. Increased IMT in the CCAs.Both vertebral arteries are antegrade. FINDINGS: Carotid Findings: Right Left Verteb.Flw Antegrade Antegrade Subclavian Triphasic Triphasic MEASUREMENTS: DOPPLERLeft CCA Dist CCA Dist PSV 91.1 cm/s CCA Dist EDV 29.9 cm/sLeft CCA Mid CCA Mid PSV 97.4 cm/s CCA Mid EDV 27.5 cm/sLeft CCA Prox CCA Prox PSV 93.5 cm/s CCA Prox EDV 23.6 cm/sLeft ICA Dist ICA Dist PSV 90.4 cm/s ICA Dist EDV 27.5 cm/sLeft ICA Mid ICA Mid PSV 114 cm/s ICA Mid EDV 31.4 cm/sLeft ICA Prox ICA Prox PSV 116 cm/s ICA Prox EDV 35.4 cm/sLeft ECA Prox ECA Prox PSV 114 cm/s ECA Prox EDV 13.4 cm/sLeft SCA Prox SCA Prox PSV 147 cm/s Left Vertebral Vertebral PSV 64.5 cm/s Vertebral EDV 18.8cm/sRight CCA Dist CCA Dist PSV 80.3 cm/s CCA Dist EDV 19.3 cm/sRight CCA Mid CCAMid PSV 75 cm/s CCA Mid EDV 16.4 cm/sRight CCA Prox CCA Prox PSV 67.4 cm/s CCA Prox EDV 18.2 cm/sRight ICA Dist ICA Dist PSV 86.8 cm/s ICA Dist EDV 24.6 cm/sRight ICA Mid ICA Mid PSV 96.2 cm/s ICA Mid EDV 27.6 cm/sRight ICA ProxICA Prox PSV 124 cm/s ICA Prox EDV 29.9 cm/sRight ECA Prox ECA Prox PSV 128 cm/s ECA Prox EDV 7.07 cm/sRight SCA Prox SCA Prox PSV 120 cm/s Right Vertebral Vertebral PSV 52.3 cm/s Vertebral EDV 11.4 cm/sRight ICA/CCA Ratio ICA/CCA PSV 1.65 Left ICA/CCA Ratio ICA/CCA PSV 1.19 Signed 03/07/2019 08:08 Se Hurley MD, [facility] MethodistVenous blood [id number] 05:47:13 Test Item Value Reference Range Interpretation Comments pH, venous (test code = 2746-6) 7.30 7.32-7.42 L pCO2, venous (test code = 2020-4) 42 45- 51 mmHg L pO2, venous (test code = 2705-2) 39 25- 40 mmHg Base excess, venous (test code = -5 meq/L -2-2 L 1927-3) O2 saturation, venous (test code 70 % 40-70 = 2711-0) Bicarbonate, venous (test code = 20.2 mmol/L 21-28 L 23355-5) Lab Interpretation (test code = Abnormal 09236-3) [facility] MethodistUrinalysis screen and microscopy, with reflex to culture 2019-03-07 02:06:45 Test Item Value Reference Range Interpretation Comments Specimen site (test code = Catheterized 0793591) Color, UA (test code = 5778-6) Yellow Appearance, UA (test code = Cloudy 5767-9) Specific gravity, UA (test code 1.014 1.001-1.035 = 5811-5) pH, UA (test code = 5803-2) 5.0 5.0-8.5 Protein, UA (test code = 2+ Negative A 55198-7) Glucose, UA (test code = 3+ Negative A 48340-3) Ketones, UA (test code = 2514-8) Negative Negative Bilirubin, UA (test code = Negative Negative 5770-3) Blood, UA (test code = 5794-3) Negative Negative Nitrite, UA (test code = 5802-4) Negative Negative Urobilinogen, UA (test code = <2.0 <2.0 13024-4) Leukocyte esterase, UA (test Small Negative A code = 5799-2) Epithelial cells, UA (test code 2 /HPF = 5787-7) WBC, UA (test code = 5821-4) 8 0- 4 /HPF H RBC, UA (test code = 67371-7) 1 0- 5 /HPF Bacteria, UA (test code = Few None seen 23739-9) Yeast, UA (test code = 23785-5) None seen Yeast with pseudohyphae, UA None seen (test code = 81003-9) Amorphous crystals (test code = Few 57504-4) Lab Interpretation (test code = Abnormal 26165-7) [facility] MethodistEchocardiogram complete w contrast and 3D if [id number] 16:37:00Interface, Radiology Results In - 03/06/2019 4:37 PM [facility] Echocardiography Report [id number] [place] [address] Pat.Name: JULEE KENNEY Pat.ID: [id number].Date: 03/06/2019 Refer.MD: SANJAY KEBEDE MD Exam Time: 2:29:00 PM Study Type:Routine Echo Height: 65in Weight: 183lb BSA: 1.91 m2 Age: 8 1955,63Y Sex: FEMALE BP: 138/64 HR: 66 bpm Sonogrphr: AKIKO Brennan, RVTPat. Stat.:Inpatient Room: [address] Study Status:Final Echo Event ID:[id number] Order ID: [id number] Reason for Study:Arrhythmias - Sustained or nonsustained atrialfibrillation, SVT, or VT; Assess LV function prior to anticipated ACBHistory / Clinical:Diabetes, Hypertension, TN, Rheumatoid ArthritisProcedures: 2D Echo, Colorflow Doppler, Intravenous Definity ContrastRace: C -------- SUMMARY: LV size is mildly enlarged.LV EF is moderately to severelydepressed.LV filling pressure is normal. ------FINDINGS: LV: LV size is mildly enlarged. There is moderate eccentric LV hypertrophy. LV EF is moderately to severely depressed. Global hypokinesis. Calculated EF = 33%RV: RV size is normal. RV systolic function is normal.LA: LA volume is mildly enlarged.RA: RA size is normal.AO: Aortic root diameter is normal.JOSELO: No pericardial effusion.AV: Mild thickening and calcification of AV leaflets.MV: No structural MV abnormalities noted. A trace of mitral regurgitation. PV: No structural PV abnormalities noted. A trace of pulmonic regurgitation. TV: No structural TV ab normalities noted. Mild tricuspid regurgitation Kinsey: LV relaxation is impaired. LV filling pressure is normal.Other: Insufficient TR jet to estimate PA systolic pressure. MEASUREMENTS: 2DParasternal Long [place] Ao An 1.9 cm LVPWd 1 cm Ao Rtd 2.7 cm Index 1.4 cm/m2 LA Ds 4.7 cm IVSd 0.97 cm RWT 0.34 LVIDd 5.8 cm Index 3 cm/m2 LV Mass 229 g (87-129) LVIDs 4.9 cm LVM Index 120 g/m2 LV%fs 16 % LVOT 1.9 cm LA Sng Plane LA Area 21cm2 (8.8-23.4) LA Vol 65 ml Index 34 ml/m2 LA LngAx 5.9 cm EFBiplane EDV 222 ml EF 33 % ESV 149 ml HR 58 bpm SV 73 ml CO 4.2 l/minLVOT LVOT Area 2.8 cm2 DOPPLERStroke Vol [place] 1.9 cm Tm 340 msec TVI 25 cm SV 72 ml Signed 03/06/2019 04:37 Segundo Santos M.D.[facility] MethodistSodium level, urine, [id number] 12:51:14 Test Item Value Reference Range Interpretation Comments Sodium, urine, random (test code = 32 mEq/L 63282-1) [facility] MethodistCreatinine level, urine, [id number] 12:50:27 Test Item Value Reference Range Interpretation Comments Creatinine, urine, random (test 130 mg/dL code = 52082-9) [facility] MethodistAnti Xa, [id number] 03:09:11 Test Item Value Reference Range Interpretation Comments Anti Xa, unfractionated 0.25 U/mL 0.3-0.7 L Ther apeutic Range: (test code = 3274-8) 0.30 - 0.70 U/mL Lab Interpretation (test Abnormal code = 10962-7) [facility] [id number] 01:13:19 Test Item Value Reference Range Interpretation Comments Troponin (test code = 1.157 ng/mL 0-0.04 H In pat ients 52417-4) suspected of alejandra ving a myocardial infarction, oliverio ng with all other appropriate cli nical measures and ac tions including ECG a nd other diagnosti cs as appropriate, me asure Ultra TnI at 0 hrs and at 3 hrs.Myocardial infarction VERY LIKELYThe 0 hr TnI level is > 0.10 ng/mL ----- ----- ----- --Estuardo cardial infarct ion LIKELYThe 0 hr TnI level is > 0.04 ng/mL and 3 hr level is increased or decreased by at least 0.020 ng/ mL ----- ----- ----- Estuardo cardi al infarction V HENRY UNLIKELYBoth th e 0 hr and 3 hr TnI levels <= 0.04 ng/mL(within no rmal limits) OR 0 hr is > 0.04 ng/mL and 3 hr is increased OR decreased by le ss than 0.020 ng/m L Lab Interpretation Abnormal (test code = 53626-2) [facility] ED Preliminary Interpretation - Not an [id number] 09:17:49 Test Item Value Reference Range Interpretation Comments ALHAJI (test code = ALHAJI) Giovani Serrato MD 03/04/2019 3:51 [facility] ED Preliminary Interpretation - Not an OrderPerformed by: Giovani Serrato MDAuthorized by: Giovani Serrato MD ECG reviewed by ED Physician in the absence of a flight attendant: yes Interpretation: Interpretation: abnormal Rate: ECG rate: 77 ECG rate assessment: normal Rhythm: Rhythm: sinus rhythm QRS: QRS axis: Normal QRS intervals: NormalConduction: Conduction: abnormal Abnormal conduction: complete RBBB ST segments: ST segments: NormalT waves: T waves: inverted Inverted: AVL and V1 Lab Interpretation Abnormal (test code = 38806-8) [facility]2020-01-13 09:17:49Giovani Serrato MD 03/04/2019 3:51 PMCritical CarePerformed by: Giovani Serrato MDAuthorized by: Giovani Serrato MD Critical care provider statement: Critical care time (minutes): 35 Critical care was necessary to treat or prevent imminent or life-threatening deterioration of the following conditions: Cardiac failure Critical care was time spent personally by me on the following activities: Development of treatment plan with patient or surrogate, discussions with consultants, evaluation of patient's response to treatment, examination of patient, interpretation of cardiac outputmeasurements, obtaining history from patient or surrogate, review of old charts, re-evaluation of patient's condition, pulse oximetry, ordering and review of radiographic studies, ordering and review of laboratory studies and ordering and performing treatments and interventionsCesar Harris
[2019-12-29] MEDS ORDERED: CODEINE 30MG/APAP 300MG TAB ONE (00:12)
--- NOTE | 2019-12-29 00:33 | ER ---
Nurse's Notes [facility] Name: Viri Jefferson Age: 64 yrs Sex: Female : 1955 Arrival Date: 12/28/2019 Time: 23:33 Bed 5 Private MD: Diagnosis: Monoarthritis, not elsewhere classified, right wrist Presentation: 12/27 23:42 Chief complaint: Patient states: RIGHT WRIST STARTED HURTING THREE DAYS AGO. DULL THEN rv PROGRESSED. UNABLE TO MOVE HAND, SEVERE TENDERNESS ON THE RIGHT WRIST. Coronavirus screen: Client denies travel out of the [place] in the last 14 days. At this time, the client does not indicate any symptoms associated with coronavirus-19. Ebola Screen: No symptoms or risks identified at this time. Initial Sepsis Screen: Does the patient meet any 2 criteria? No. Patient's initial sepsis screen is negative. Does the patient have a suspected source of infection? No. Patient's initial sepsis screen is negative. Risk Assessment: Do you want to hurt yourself or someone else? Patient reports no desire to harm self or others. Onset of symptoms was December 26, 2019. 23:42 Method Of Arrival: Wheelchair rv 23:42 Acuity: RUSS 3 rv Triage Assessment: 23:47 General: Appears uncomfortable, Behavior is calm, cooperative. Pain: Complains of pain rv in right hand. EENT: No signs and/or symptoms were reported regarding the EENT system. Neuro: Level of Consciousness is awake, alert, obeys commands, Oriented to person, place, time, situation. Cardiovascular: Patient's skin is warm and dry. Respiratory: Airway is patent. Musculoskeletal: Range of motion: limited in right wrist, MCP of right thumb, MCP of right index finger, MCP of right middle finger, MCP of right ring finger and MCP of right little finger Swelling absent. Injury Description: no injury. Historical: - Allergies: 23:47 Demerol; rv 23:47 PENICILLINS; rv 23:47 Morphine; rv - PMHx: 23:47 Diabetes - NIDDM; lyme disease; Dialysis; rv - Immunization history:: Adult Immunizations up to date. - Social history:: Smoking status: Patient denies any tobacco usage or history of. Screenin:49 Abuse screen: Denies threats or abuse. Denies injuries from another. Nutritional rv screening: No deficits noted. Tuberculosis screening: No symptoms or risk factors identified. Fall Risk No fall in past 12 months (0 pts). No secondary diagnosis (0 pts). No IV (0 pts). Ambulatory Aid- Crutches/Cane/Walker (15 pts). Gait- Weak (10 pts.). Mental Status- Oriented to own ability (0 pts). Total Hi Fall Scale indicates Low Risk Score (25-44 pts). Fall prevention measures have been instituted. Side Rails Up X 2 Frequent Obs/Assesments occuring Family Present and informed to notify staff if they need to leave bedside As available Patient and Family Educated on Fall Prevention Program and strategies. Assessment: 12/28 00:00 Reassessment: patient refused tramadol. referred to Dr Hilton. new order received. rv Tylenol #3 given PO as ordered. 00:18 Reassessment: X-RAY TAKEN AT BEDSIDE. rv 00:47 Reassessment: APPLIED PRE-FORMED SPLINT, RIGHT WRIST. rv Vital Signs: 12/27 23:42 BP 141 / 74; Pulse 73; Resp 16; Temp 98.3; Pulse Ox 100% ; Weight 83.91 kg; Height 5 rv ft. 5 in. (165.10 cm); Pain 8/10; 12/28 00:32 BP 142 / 58; Pulse 75; Resp 16; Pulse Ox 100% on R/A; rv 12/27 23:42 Body Mass Index 30.79 (83.91 kg, 165.10 cm) rv ED Course: 12/27 23:33 Patient arrived in ED. ag3 23:33 Cam Vasquez, WILLY is Primary Nurse. rv 23:35 Fernandez Hilton MD is Attending Physician. tw4 23:44 Triage completed. rv 23:48 Arm band placed on left wrist. Patient placed in the treatment room, on a stretcher, rv Patient notified of wait time. 23:49 Patient has correct armband on for positive identification. Bed in low position. Call rv light in reach. Side rails up X 1. Adult w/ patient. Pulse ox on. NIBP on. 12/28 00:22 Wrist Right 3 View XRAY In Process Unspecified. EDMS 00:47 No provider procedures requiring assistance completed. Patient did not have IV access rv during this emergency room visit. Administered Medications: 00:00 Not Given (Patient Refused): traMADol 50 mg PO once; RASS on ADMIN: Combtv4, Very rv Agttd3, Agttd2, Rstlss1, AlertClm0, Drwsy-1, Lt Sdtn-2, Mod Sdtn-3, Dp Sdtn-4, UnArsble-5 00:00 Drug: Tylenol #3 (300 mg-30 mg) 1 tablet {Note: rass 0.} Route: PO; rv 00:46 Follow up: Response: No adverse reaction; Pain is decreased; RASS: Alert and Calm (0) rv Outcome: 00:33 Discharge ordered by . tw4 00:47 Discharged to home via wheelchair, with family. rv 00:47 Condition: good 00:47 Discharge instructions given to patient, family, Instructed on discharge instructions, follow up and referral plans. medication usage, S[PLINT [facility]ARE Demonstrated understanding of instructions, follow-up care, medications, splint care, Prescriptions given X 1. 00:47 Patient left the ED. rv Signatures: Dispatcher [employer] Fernandez Hutchinson MD MD tw4 Cam Vasquez RN RN rv Jenna Salamanca 3
--- NOTE | 2019-12-29 00:33 | EDPHYS ---
Physician Documentation [facility] Name: Viri Jefferson Age: 64 yrs Sex: Female : 1955 Arrival Date: 12/28/2019 Time: 23:33 Bed 5 Private MD: ED Physician Fernandez Hilton HPI: 12/28 06:46 This 64 yrs old Female presents to ER via Wheelchair with complaints of Hand tw4 Injury. 06:46 The patient or guardian reports pain. The complaints affect the right hand diffusely. tw4 Onset: The symptoms/episode began/occurred today. Modifying factors: The symptoms are alleviated by splinting, the symptoms are aggravated by movement. Associated signs and symptoms: The patient has no apparent associated signs or symptoms. The patient has not experienced similar symptoms in the past. Historical: - Allergies: 12/27 23:47 Demerol; rv 23:47 PENICILLINS; rv 23:47 Morphine; rv - PMHx: 23:47 Diabetes - NIDDM; lyme disease; Dialysis; rv - Immunization history:: Adult Immunizations up to date. - Social history:: Smoking status: Patient denies any tobacco usage or history of. ROS: 12/28 06:46 Constitutional: Negative for fever, chills, and weight loss, Eyes: Negative for injury, tw4 pain, redness, and discharge, Cardiovascular: Negative for chest pain, palpitations, and edema, Respiratory: Negative for shortness of breath, cough, wheezing, and pleuritic chest pain, Abdomen/GI: Negative for abdominal pain, nausea, vomiting, diarrhea, and constipation, Back: Negative for injury and pain, Skin: Negative for injury, rash, and discoloration, Neuro: Negative for headache, weakness, numbness, tingling, and seizure. MS/extremity: Positive for pain, swelling, tenderness, of the dorsal aspect of left wrist. Exam: 06:46 Constitutional: This is a well developed, well nourished patient who is awake, alert, tw4 and in no acute distress. Head/Face: Normocephalic, atraumatic. Cardiovascular: Regular rate and rhythm with a normal S1 and S2. No gallops, murmurs, or rubs. Normal PMI, no JVD. No pulse deficits. Respiratory: Lungs have equal breath sounds bilaterally, clear to auscultation and percussion. No rales, rhonchi or wheezes noted. No increased work of breathing, no retractions or nasal flaring. Abdomen/GI: Soft, non-tender, with normal bowel sounds. No distension or tympany. No guarding or rebound. No evidence of tenderness throughout. Back: No spinal tenderness. No costovertebral tenderness. Full range of motion. Neuro: Awake and alert, GCS 15, oriented to person, place, time, and situation. Cranial nerves II-XII grossly intact. Motor strength 5/5 in all extremities. Sensory grossly intact. Cerebellar exam normal. Normal gait. 06:46 Musculoskeletal/extremity: Extremities: noted in the dorsal aspect of left wrist: Vital Signs: 12/27 23:42 BP 141 / 74; Pulse 73; Resp 16; Temp 98.3; Pulse Ox 100% ; Weight 83.91 kg; Height 5 rv ft. 5 in. (165.10 cm); Pain 8/10; 12/28 00:32 BP 142 / 58; Pulse 75; Resp 16; Pulse Ox 100% on R/A; rv 12/27 23:42 Body Mass Index 30.79 (83.91 kg, 165.10 cm) rv MDM: 12/27 23:35 Patient medically screened. tw4 12/28 06:46 Data reviewed: vital signs, nurses notes. Data interpreted: Pulse oximetry: tw4 Interpretation: normal. Counseling: I had a detailed discussion with the patient and/or guardian regarding: the historical points, exam findings, and any diagnostic results supporting the discharge/admit diagnosis, radiology results. Special discussion: I discussed with the patient/guardian in detail that at this point there is no indication for admission to the hospital. It is understood, however, that if the symptoms persist or worsen the patient needs to return immediately for re-evaluation. 12/27 23:44 Order name: Wrist Right 3 View XRAY tw4 12/28 00:34 Order name: Splint - Wrist; Complete Time: 00:47 tw4 Administered Medications: 00:00 Not Given (Patient Refused): traMADol 50 mg PO once; RASS on ADMIN: Combtv4, Very rv Agttd3, Agttd2, Rstlss1, AlertClm0, Drwsy-1, Lt Sdtn-2, Mod Sdtn-3, Dp Sdtn-4, UnArsble-5 00:00 Drug: Tylenol #3 (300 mg-30 mg) 1 tablet {Note: rass 0.} Route: PO; rv 00:46 Follow up: Response: No adverse reaction; Pain is decreased; RASS: Alert and Calm (0) rv Disposition: 12/29/19 00:33 Discharged to Home. Impression: Monoarthritis, not elsewhere classified, right wrist. - Condition is Stable. - Discharge Instructions: Arthritis. - Prescriptions for Tylenol- Codeine #3 300-30 mg Oral Tablet - take 2 tablet by ORAL route every 6 hours As needed; 30 tablet. - Medication Reconciliation Form, Thank You Letter, Antibiotic Education, Prescription Opioid Use form. - Follow up: Private Physician; When: Upon discharge from the Emergency Department; Reason: Recheck today's complaints, Continuance of care, Re-evaluation by your physician. - Problem is new. - Symptoms have improved. Signatures: Dispatcher [employer] EDMS Fernandez Hilton MD MD tw4 Cam Vasquez RN RN rv Corrections: (The following items were deleted from the chart) 00:47 00:33 12/29/2019 00:33 Discharged to Home. Impression: Monoarthritis, not elsewhere rv classified, right wrist. Condition is Stable. Forms are Medication Reconciliation Form, Thank You Letter, Antibiotic Education, Prescription Opioid Use. Follow up: Private Physician; When: Upon discharge from the Emergency Department; Reason: Recheck today's complaints, Continuance of care, Re-evaluation by your physician. Problem is new. Symptoms have improved. tw4
[2019-12-29 00:53] VITALS: TEMP 98.3; O2SAT 100
[2019-12-29 00:57] VITALS: BP 142/58
--- NOTE | 2019-12-29 12:00 | RAD REPORT ---
EXAM DESCRIPTION: RAD - Wrist Right 3 View - 12/29/2019 12:24 am CLINICAL HISTORY: PAIN Pain COMPARISON: No comparisons FINDINGS: Diffuse osteopenia is seen. Prominent radiocarpal arthritic changes are noted. Heavy vasc ular calcifications are seen. No acute fracture or dislocation seen.
== END 2019-12-29 00:47 | disposition home or self-care (01) ==
LOC: ER 23:30
DX: M13.131 Monoarthritis, not elsewhere classified, right wrist (principal); E11.9 Type 2 diabetes mellitus without complications; Z88.0 Allergy status to penicillin; Z88.5 Allergy status to narcotic agent
CPT/HCPCS: 99284

== ENCOUNTER 2020-01-27 12:57 | Emergency (ER) | payer OTHER ==
--- OUTSIDE RECORDS SUMMARY | 2020-01-27 13:02 | XMS REPORT | Clinical Summary ---
:1955 Author Organization [facility] Address [address] [place] [address] Care Team Providers Name Role Phone Mandy [...] 81 MG enteric mouth daily. coated tablet lidocaine-prilocai Apply topically 30 g 0 01/21 Active ne (EMLA) 2.5-2.5 as needed for 0 21 % cream mild pain. Apply to fistula site 30-45 minutes prior to dialysis treatment. lisinopril 20 mg daily. 0 03/04/19 Discon [...] Pia nup) PEN NEEDLES) 32 gauge x /32" needleIndications: Type 2 diabetes, uncontrolled, with retinopathy ([facility]) lancets PRN 60 each 5 03/04/19 Discontinu [...] Discontinued vitamin D3, by mouth daily. 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 and 07/25/2019 macular edema associated with type 2 diabetes mellitus Ischemic cardiomyopathy 07/25/2019 Obesity (BMI 30-39.9) 03/09/2019 Coronary artery disease involving [place] heart with un stable angina 03/04/2019 pectoris Overview: Added automatically from request for poncho doyle [id number] Tremor 11/20/2018 Seizure 11/19/2018 Elevated troponin 11/18/2018 ASCVD (arteriosclerotic cardiovascular disease) 2018 CAD (coronary artery disease) 08/16/2018 Atherosclerosis of [place] coronary artery of [place] he art with unstable 01/26/2018 angina pectoris [...] Encounters Date Type Specialty Care Team Description 01/22/2020 Office Visit Cardiovascular Dagmar Eisenberg RN 01/22/2020 Travel 01/20/2020 Refill Endocrinology Rosalind Elizondo NP 12/25/2019 Office Visit Cardiovascular Craig Barbosa MD Encounter regarding Stefano Siddiqi vascular acce ss for MD Mitzi dialysis for end-stage renal disease (HCC) (Primary Dx) 12/25/2019 Travel 11/26/2019 Travel 11/26/2019 Telephone Cardiovascular Db ESRD (end sta ge renal WILLY Monte disease) (HCC) (Primary Dx) 11/25/2019 Anesthesia Event General Surgery Zachery Sin MD Cheema, Ivelisse, FNP 11/25/2019 Surgery General Surgery Craig Barbosa MD RIGHT ARM BRACHIOBASILIC ARTERIOUVENOUS FISTULA CREATIO N WITH TRANSPOSITION 11/25/2019 Hospital Encounter General Surgery Craig Barbosa MD ESRD ( end stage renal disease) (HCC) 11/20/2019 Hospital Encounter Radiology Merrick, Pre-op testing Zachery Russell MD 11/20/2019 Pre-Admission Pre-Admission Craig Barbosa MD Pre-op testin g (Primary Dx); Testing Testing ESRD (end stage renal disease) ([facility]) 11/20/2019 Office Visit Cardiovascular Craig Barbosa MD End-stage sakina al disease ([facility]) (Primary Dx) 11/20/2019 Prep for Surgery Cardiovascular Db, ESRD (end stage renal WILLY Monte disease) ([facility]) (Primary Dx) 11/20/2019 Travel 11/12/2019 Travel 11/11/2019 Orders Only Cardiovascular Live, Arteriovenous fistula PATRICIA Mcrae for hemodialy sis in place, primary (HCC) (Primary Dx) 11/05/2019 Travel 11/05/2019 Telephone Cardiovascular Mell Ace, WILLY 07/25/2019 Surgery Procedural Gildardo Nichols EP AICD IMPLANT Cardiology MD Lukas SINGLE DUAL BI VENT [80539 (CPT)] 07/25/2019 Hospital Encounter General Internal Gildardo Nichols christina diabetic maculopathy with severe nonproliferative retinopathy and macular edema associated with type 2 diabetes mellitus (HCC); - Medicine MD Lukas LBBB (left bund le branch block); 07/26/2019 NYHA class 3 ac genoveva on chronic systolic heart failure (HCC) 07/25/2019 Travel 03/11/2019 Surgery Cardiothoracic [place], CABG, MINIMAL LY Surgery Kaiden Gonzalez MD 03/11/2019 Anesthesia Event Cardiothoracic Niktia, Cj Surgery MD Ziyad Estes Keegan, MD 03/06/2019 Orders Only Cardiovascular Ashley Johnston MA Coronary ar john disease involvi ng [place] heart wi th unstable angina pectoris, unspe cified vessel or lesio n type (HCC) (Primary Dx) 03/06/2019 Documentation Medical Records Provider, Unknown 03/05/2019 Surgery Procedural Sanjay Kebede CV SELECTIVE CORONARY Cardiology MD Francisco ANGIOGRAM [[id number] (CPT)] 03/04/2019 Hospital Encounter General Internal Giovani Serrato NSTE VA (non-ST elevated myocardial infarction) (HCC) (Primary Dx); - Jesús Schrader MD Chronic kidney disease, unspecified CKD stage; 03/19/2019 Joe Jiang ASCVD (arterio sclerotic cardiovascular disease); MD Harlan Coronary artery disease s/p stent x 1 after 01/26/2019 Surgical History Surgery Date Site/Laterality Comments HYSTERECTOMY ANKLE SURGERY 02/20/2010 - Left Dr. Martinez marcel kathi 02/19/2011 hardware at late r date. FEMUR SURGERY 02/20/2009 - Left X 3 02/19/2010 ORIF, FRACTURE, FEMUR 11/10/2015 Leg Lower/Left Procedure: TIBIA REMOVAL OF JACOB AND 2 MED IAL ACCUTRAK SCREWS; Surgeon: Denny Martinez MD; Lo cation: [facility] OPC 19 OR; Service: Orthopedics; La terality: Left; ORIF, FRACTURE, FEMUR, SHAFT, 11/08/2017 Thigh/Left Pr ocedure: LEFT PROXIMAL USING INTRAMEDULLARY JACOB FEMUR O RIF AND ANY INDICATED PROCED URES; Surgeon: Denny Martinez MD; Location: [facility] OPC 19 OR; Service: Orthopedics; La terality: Left; Medical devices from this surgery are in t he Implants section . ORIF, FRACTURE, RADIUS OR 11/08/2017 Arm Lower/Left Proced ure: LEFT ORIF ULNA DISTAL RADIUS; Surgeon: Denny Martinez MD; Location: [facility] OP C 19 OR; Service: Orthope dics; Laterality: Left ; Medical devices from this surgery are in t he Implants section . CABG, MINIMALLY INVASIVE 03/11/2019 Chest/N/A Procedu re: CABG, MINIMALLY INVASI VE; Surgeon: Kaiden Brice MD; Location: [facility]; Service: Cardiot horacic; Laterality: N/A; Medical devices from this surgery are in t he Implants section . CARDIAC ELECTROPHYSIOLOGY 07/25/2019 N/A Proced ure: EP AICD PROCEDURE IMPLANT SINGLE D UAL BI VENT; Surgeon: Gildardo Nichols MD; Location: [facility] Collateral Specialist Invasive Location; Servi ce: Cardiovascular; Laterality: N/A; Medical devices from this surgery are in t he Implants section . CARDIAC CATHETERIZATION 11/03/2017 N/A Procedur e: Cv left heart cath; Surgeon: Sanjay Kebede MD; Lo cation: [facility] Collateral Specialist Invasive Location; Servi ce: Cardiology; Lat erality: N/A; Medical devices from this surgery are in t he Implants section . CARDIAC CATHETERIZATION 11/03/2017 N/A Procedur e: Pci percutaneous car diac angioplasty; Nascimento rgeon: Sanjay bolanos MD; Location: [facility] Collateral Specialist Invasive Locatio n; Service: Cardiol ogy; Laterality: N/A; Medical devices from this surgery are in t he Implants section . CARDIAC CATHETERIZATION 01/26/2018 N/A Procedur e: Selective coronary angiogr aphy; Surgeon: Sanjay Kebede MD; Locatio n: [facility] Collateral Specialist Invasiv e Location; Servi ce: Cardiology; Lat erality: N/A; Medical devices from this surgery are in t he Implants section . CARDIAC CATHETERIZATION 01/26/2018 N/A Procedur e: PCI stent; Surgeon: Sanjay Kebede MD; Locatio n: [facility] Collateral Specialist Invasiv e Location; Servi ce: Cardiology; Lat erality: N/A; LAD & CX Medical devices from this surgery are in t he Implants section . CARDIAC CATHETERIZATION 08/21/2018 N/A Procedur e: Cv percutaneous cor onary intervention; S urgeon: Sanjay Kebede MD; Location: [facility] Collateral Specialist Invasive Locatio n; Service: Cardiol ogy; Laterality: N/A; Medical devices from this surgery are in t he Implants section . CARDIAC CATHETERIZATION 08/17/2018 N/A Procedur e: Selective coronary angiogr aphy; Surgeon: Sanjay Kebede MD; Locatio n: [facility] Collateral Specialist Invasiv e Location; Servi ce: Cardiovascular; Laterality: N/A; Medical devices from this surgery are in t he Implants section . CARDIAC CATHETERIZATION 08/17/2018 N/A Procedur e: Ivus coronary; Surgeon: Sanjay Dodd MD; Locatio n: [facility] Collateral Specialist Invasiv e Location; Servi ce: Cardiovascular; Laterality: N/A; LAD and CIRC Medical devices from this surgery are in t he Implants section . CARDIAC CATHETERIZATION 08/17/2018 N/A Procedur e: Pci percutaneous car diac angioplasty; Nascimento rgeon: Sanjay Kebede MD; Location: [facility] Collateral Specialist Invasive Locatio n; Service: Cardiov ascular; Laterality: N/A; LAD- POBA Medical devices from this surgery are in t he Implants section . CARDIAC CATHETERIZATION 03/05/2019 N/A Procedur e: CV SELECTIVE CORONARY ANGIOGR AM; Surgeon: Sanjay Kebede MD; Locatio n: [facility] Collateral Specialist Invasiv e Location; Servi ce: Cardiovascular; Laterality: N/A; CARDIAC CATHETERIZATION 03/05/2019 N/A Procedur e: Cv left heart cath; Surgeon: Sanjay Kebede MD; Location: [facility] Collateral Specialist Invasive Location; Servi ce: Cardiovascular; Laterality: N/A; [...] (HCC) 2001 Petite, last one charisma und 2015. Transfusion history selveral, most recen t about 2018 PONV (postoperative nausea and vomiting) Slow to [...] file Not on file Not on file COVID-19 Exposure Response Date Recorded In the last month, have you been in contact with No / Unsure 01/22/2020 9:35 AM PLASTIC FINISHER someone who was confirmed or suspected to have Coronavirus / COVID-19? Last Filed Vital Signs Vital Sign Reading Time Taken Comments Blood Pressure 140/73 01/22/2020 9:38 AM PLASTIC FINISHER Pulse 64 01/22/2020 9:38 AM PLASTIC FINISHER Temperature 36.4 C (97.6 F) 01/22/2020 9:38 AM PLASTIC FINISHER Respiratory Rate 20 11/25/2019 4:30 PM CDT Oxygen Saturation 94% 01/22/2020 9:38 AM PLASTIC FINISHER Inhaled Oxygen Concentration - - Weight 83 kg (183 lb) 01/22/2020 9:38 AM PLASTIC FINISHER Height 165.1 cm (5' 5") 01/22/2020 9:38 AM PLASTIC FINISHER Body Mass Index 30.45 01/22/2020 9:38 AM PLASTIC FINISHER Plan of Treatment Date Type Specialty Care Team Description 02/26/2020 Office [place] [address] [facility] [address] [place] [address] 7479 Health Maintenance Due Date Last Done Comments CERVICAL CANCER SCREENING 09/24/1975 BREAST CANCER SCREENING 2004 COLONOSCOPY SCREENING 2004 SHINGLES VACCINES (#1) 2004 DIABETES: RETINAL EYE EXAM 01/08/2016 01/07/2015 DIABETIC FOOT EXAM 11/03/2016 11/04/2015 INFLUENZA VACCINE 09/21/2019 65+ PNEUMOCOCCAL VACCINE (1 of 1 - PPSV23) 09/24/2019 Implants Implanted Type Area Direct Customer Service Representative Device Shelf Model / Identifier Expiration Serial / Date Lot Ivanta Df4 - Active Tbp Single Shock, Icd Leads, Model [id number] - [id number] Cardiac Pacing N/A: 04/19/2022 [id number] / Implanted: 07/25/2019 at [facility] (Quantity not on file) Leads or N/A [id number] / Electrodes or [id number] Accessories Quartest Lead Double Bend, 86 Cm - [id number] Cardiac Pacing N/A: 04/19/2022 1457Q/86 / Implanted: 07/25/2019 at [facility] (Quantity not on file) Leads or N/A [id number] / Electrodes or [id number] Accessories Lead Pace Bipolar Is-1 Endocrdl 46cm - [id number] Cardiac Pacing N/A: [facility] [employer] 04/19/2022 [id number] / Implanted: 07/25/2019 at [facility] (Quantity not on file) Leads or N/A [id number] / Electrodes or [id number] Accessories Catheter Bln Otw 2.5mm 12mm Sprinter - [id number] Cardiovascular N/A: [employer] [place] - [id number] / Implanted: 11/03/2017 at [facility] (Quantity not on file) Imp lants N/A VASCULAR / Catheter Bln Otw 2.5mm 12mm Sprinter - [id number] Cardiovascular N/A: [employer] [place] - [id number] / Implanted: 01/26/2018 at [facility] (Quantity not on file) Imp lants N/A VASCULAR / Envlp Impl Crdvrtr Dfb Antbctrl Fully Resorb Lg Aigiss rx R - [id number] Cardiovascular N/A: [employer] [id number] / Implanted: 07/25/2019 at [facility] (Quantity not on file) Implants N/A / Stent System 3.0 X 15mm Resolute [place] Otw Coronary - [id number] Coronary Stents N/A: [employer] [place] - [id number] / Implanted: 01/26/2018 at [facility] (Quantity not on file) N/A CARDIAC RYHTYM / MGMT Stent System 3.0 X 15mm Resolute [place] Otw Coronary - [id number] Coronary Stents N/A: [employer] [place] - [id number] / Implanted: 01/26/2018 at [facility] (Quantity not on file) N/A CARDIAC RYHTYM / MGMT Stent System 2.50 X 34mm Resolute [place] Rx Coronary - [id number] Coronary Stents N/A: [facility] - [id number] / Implanted: 01/26/2018 at [facility] (Quantity not on file) N/A CARDIAC RYHTYM / MGMT Stent System 2.50 X 12mm Resolute [place] Otw Coronary - [id number] Coronary Stents N/A: [employer] [facility] - [id number] / Implanted: 01/26/2018 at [facility] (Quantity not on file) N/A CARDIAC RYHTYM / MGMT Stent Catheter Synergy (Otw) 2.50mm X 24mm - [id number] Coronary Stents N/A: [facility] [id number] / Implanted: 08/21/2018 at [facility] (Quantity not on file) N/A INTERVENTIONAL / CARDIOLOGY Stent Catheter Synergy (Otw) 2.75mm X 16mm - [id number] Coronary Stents N/A: [facility] [id number] / Implanted: 08/21/2018 at [facility] (Quantity not on file) N/A INTERVENTIONAL / CARDIOLOGY Defibrillator Quadra Assura Mp - [id number] Defibrillator N/A: [facility] 06/19/2021 [id number] / Implanted: 07/25/2019 at [facility] (Quantity not on file) ICD Devices N/A [facility] [id number] / [id number] Lock Screw Square 2.7mm X 15mm - [id number] IPM IMPLANT Left: BIOM ET TRAUMA [id number] / Implanted: 11/08/2017 at [facility] (Quantity not on file) DEVICES Wrist / Lock Screw Square 2.7mm X 20mm - [id number] IPM IMPLANT Left: BIOM ET TRAUMA [id number] / Implanted: 11/08/2017 at [facility] (Quantity not on file) DEVICES Wrist / Lock Screw Square 2.7mm X 22mm - [id number] IPM IMPLANT Left: BIOM ET TRAUMA [id number] / Implanted: 11/08/2017 at [facility] (Quantity not on file) DEVICES Wrist / Lock Screw Square 2.7mm X 18mm - [id number] IPM IMPLANT Left: BIOM ET TRAUMA [id number] / Implanted: 11/08/2017 at [facility] (Quantity not on file) DEVICES Wrist / Lp Non Lock 2.7mm X 14mm - [id number] IPM IMPLANT Left: BIOMET TRA BLUE [id number] / Implanted: 11/08/2017 at [facility] (Quantity not on file) DEVICES Wrist / Lp Non Lock 2.7mm X 20mm - [id number] [id number] IMPLANT Left: BIOMET TRA BLUE [id number] / Implanted: 11/08/2017 at [facility] (Quantity not on file) DEVICES Wrist / 95 Deg Condylar Plate 9 Holes/80mm/156mm - [id number] IPM IMPLAN T Left: SYNTHES TRAUMA [id number] / Implanted: 11/08/2017 at [facility] (Quantity not on file) DEVICES Femur / Dvr Lock Medium L - [id number] [id number] IMPLANT Left: BIOMET TRAUMA [id number] / Implanted: 11/08/2017 at [facility] (Quantity not on file) DEVICES Wrist / Lock Screw Square 2.7mm X 16mm - [id number] IPM IMPLANT Left: BIOM ET TRAUMA [id number] / Implanted: 11/08/2017 at [facility] (Quantity not on file) DEVICES Wrist / Clip Ligtng Weck Hemoclip Plus W/ Tape Ti Sm - [id number] Medica l Clips N/A: TELEFLEX 03/11/2023 [id number] / Implanted: Qty: 2 on 03/11/2019 by Kaiden Hammonds MD at [facility] for Internal Use N/A MEDICAL / Clip Ligtng Weck Hemoclip Plus W/ Tape Ti Sm Strngpnt - [id number] Medical Clips N/A: TELEFLEX 03/11/2023 [id number] / Implanted: Qty: 2 on 03/11/2019 by Kaiden Hammonds MD at [facility] for Internal Use N/A MEDICAL / Clip Ligtng Weck Hemoclip Plus W/ Tape Ti Med - [id number] Medic al Clips N/A: TELEFLEX 03/11/2023 [id number] / Implanted: Qty: 1 on 03/11/2019 by Kaiden Hammonds MD at [facility] for Internal Use N/A MEDICAL / Screw Bone Joel Slf-Tap W/ Lg Hxgnl Socket Ss 4.5x36mm - Log [id number] Orthopedic Left: SYNTHES TRAUMA [id number] / Implanted: 11/08/2017 at [facility] (Quantity not on file) Trauma Implants Femur AND RECON / Screw Bone Joel Slf-Tap W/ Lg Hxgnl Socket Ss 4.5x38mm - Log [id number] Orthopedic Left: SYNTHES TRAUMA [id number] / Implanted: 11/08/2017 at [facility] (Quantity not on file) Trauma Implants Femur AND RECON / Screw Bone Joel Slf-Tap W/ Lg Hxgnl Socket Ss 4.5x42mm - Log [id number] Orthopedic Left: SYNTHES TRAUMA 214 [id number] / Implanted: 11/08/2017 at [facility] (Quantity not on file) Trauma Implants Femur AND RECON / Screw Bone Joel Slf-Tap W/ Lg Hxgnl Socket Ss 4.5x44mm - Log [id number] Orthopedic Left: SYNTHES TRAUMA 214 844 / Implanted: 11/08/2017 at [facility] (Quantity not on file) Trauma Implants Femur AND RECON / Screw Bone Joel Slf-Tap W/ Lg Hxgnl Socket Ss 4.5x48mm - Log [id number] Orthopedic Left: SYNTHES TRAUMA 214 848 / Implanted: 11/08/2017 at [facility] (Quantity not on file) Trauma Implants Femur AND RECON / Screw Bone Joel Slf-Tap W/ Lg Hxgnl Socket Ss 4.5x90mm - Log [id number] Orthopedic Left: SYNTHES TRAUMA 214 890 / Implanted: 11/08/2017 at [facility] (Quantity not on file) Trauma Implants Femur AND RECON / Screw Bone Canltd Thred Lg Hxgnl Socket Ss [id number] - Log [id number] Orthopedic Left: SYNTHES TRAUMA 208 875 / Implanted: 11/08/2017 at [facility] (Quantity not on file) Trauma Implants Femur AND RECON / Material Bone Hmsts Wtrsolbl 2.5g Ostene - [id number] Orthopedic N/A: 07/21/2023 [id number] / Implanted: 03/11/2019 at [facility] (Quantity not on file) Trauma Implants N/A / [id number] W System Clsr Sut Meditd 6fr Perclose Proglide - [id number] Surgic al N/A: EVANS VASCULAR 08/20/2019 [id number] / Implanted: 11/03/2017 at [facility] (Quantity not on file) Imp lants; N/A DEVICES / Expanders; [id number] Extenders; Surgical Wires System Clsr Sut Meditd 6fr Perclose Proglide - [id number] Surgic al N/A: EVANS VASCULAR 05/20/2020 [id number] / Implanted: 08/17/2018 at [facility] (Quantity not on file) Imp lants; N/A DEVICES / Expanders; [id number] Extenders; Surgical Wires Stabilizer Tiss Octopus Nuvo - [id number] Surgical N/A: [employer] [place] - 09/19/2021 [id number] / Implanted: 03/11/2019 at [facility] (Quantity not on file) Imp lants; N/A CARDIAC SRGRY / Expanders; [id number] Extenders; Surgical Wires [facility] Vasclr Ptfe 1.2x10cm 1.65mm - [id number] Vascular Gra ft N/A: BARD PERIPHERAL 10/18/2023 [id number] / Implanted: 03/11/2019 at [facility] (Quantity not on file) N/A VASCULAR / [id number] Hip Replacement Pacemaker Hardware Left: Wrist Procedures Procedure Name Priority Date/Time Associated Diagnosis Comme nts US DUPLEX Routine 12/25/2019 1:45 ESRD (end stage renal Re sults for this HEMODIALYSIS AVG AVF PM PLASTIC FINISHER disease) (HCC) proce dure are in ACCESS the results section. POC GLUCOSE Routine 11/25/2019 3:36 Results for this PM CDT procedure are i n the results section. MI AN PERIPHERAL Routine 11/25/2019 12:13 Results for [...] for this W/AUTO DIFF PM CDT disease) (HCC) procedure are in the results section. COVID-19 QUALITATIVE Routine 11/20/2019 5:21 ESRD (end stage renal Results for this PCR PM CDT disease) (HCC) procedure are in the results section. ECG PRE/POST OP Routine 11/20/2019 4:57 Pre-op testing Result s for this PM CDT procedure are i n the results section. US VEIN MAPPING UPPER Routine 11/20/2019 3:50 Arteriovenous f istula Results for this EXTREMITY BILATERAL PM CDT for hemodialysis in p [facility] are in place, primary (HCC) the res [...] edema associated with type 2 diabetes mellitus (HCC) LBBB (left bundle branch block) NYHA class 3 acute on chronic systolic heart failure (HCC) POC PANEL Routine 07/25/2019 7:14 Results for [...] 03/19/2019 9:57 Results fo r this AM PLASTIC FINISHER procedure are i n the results section. POC GLUCOSE Routine 03/19/2019 8:25 Results for this AM PLASTIC FINISHER procedure are i n the results section. MANUAL DIFFERENTIAL Routine 03/19/2019 5:45 Resu lts for this AM PLASTIC FINISHER procedure are i n the results section. CBC WITH PLATELET AND Routine 03/19/2019 5:45 Re sults for this DIFFERENTIAL AM PLASTIC FINISHER procedure are i n the results section. ESTIMATED GFR Routine 03/19/2019 5:37 Results fo r this AM PLASTIC FINISHER procedure are i n the results section. BASIC METABOLIC PANEL Routine 03/19/2019 5:37 Re sults for this AM PLASTIC FINISHER procedure are i n the results section. POC GLUCOSE Routine 03/18/2019 9:08 Results for this PM PLASTIC FINISHER procedure are i n the results section. POC GLUCOSE Routine 03/18/2019 5:05 Results for this PM PLASTIC FINISHER procedure are i n the results section. POC GLUCOSE Routine 03/18/2019 1:33 Results for this PM PLASTIC FINISHER procedure are i n the results section. HEPATITIS C ANTIBODY Routine 03/18/2019 10:11 Res ults for this AM PLASTIC FINISHER procedure are i n the results section. HEPATITIS B SURFACE Routine 03/18/2019 10:11 Resu lts for this ANTIGEN AM PLASTIC FINISHER procedure are i n the results section. HEPATITIS B SURFACE Routine 03/18/2019 10:11 Resu lts for this ANTIBODY AM PLASTIC FINISHER procedure are i n the results section. HEPATITIS B SURFACE Routine 03/18/2019 10:11 Resu lts for this AB, QUANTITATIVE AM PLASTIC FINISHER procedure a re in the results section. HEPATITIS B CORE Routine 03/18/2019 10:11 Results for this ANTIBODY TOTAL AM PLASTIC FINISHER procedure are in the results section. POC GLUCOSE Routine 03/18/2019 9:53 Results for this AM PLASTIC FINISHER procedure are i n the results section. MANUAL DIFFERENTIAL Routine 03/18/2019 8:30 Resu lts for this AM PLASTIC FINISHER procedure are i n the results section. ESTIMATED GFR Routine 03/18/2019 8:30 Results fo r this AM PLASTIC FINISHER procedure are i n the results section. BASIC METABOLIC PANEL Routine 03/18/2019 8:30 Re sults for this AM PLASTIC FINISHER procedure are i n the results section. CBC WITH PLATELET AND Routine 03/18/2019 8:30 Re sults for this DIFFERENTIAL AM PLASTIC FINISHER procedure are i n the results section. POC GLUCOSE Routine 03/18/2019 7:54 Results for this AM PLASTIC FINISHER procedure are i n the results section. POC GLUCOSE Routine 03/17/2019 9:15 Results for this PM PLASTIC FINISHER procedure are i n the results section. HEMODIALYSIS Routine 03/17/2019 6:04 PM PLASTIC FINISHER POC GLUCOSE Routine 03/17/2019 5:18 Results for this PM PLASTIC FINISHER procedure are i n the results section. POC GLUCOSE Routine 03/17/2019 12:40 Results for this PM PLASTIC FINISHER procedure are i n the results section. POC GLUCOSE Routine 03/17/2019 10:45 Results for this AM PLASTIC FINISHER procedure are i n the results section. POC GLUCOSE Routine 03/17/2019 7:57 Results for this AM PLASTIC FINISHER procedure are i n the results section. POC GLUCOSE Routine 03/16/2019 10:06 Results for this PM PLASTIC FINISHER procedure are i n the results section. POC GLUCOSE Routine 03/16/2019 9:19 Results for this PM PLASTIC FINISHER procedure are i n the results section. POC GLUCOSE Routine 03/16/2019 9:17 Results for this PM PLASTIC FINISHER procedure are i n the results section. POC GLUCOSE Routine 03/16/2019 5:43 Results for this PM PLASTIC FINISHER procedure are i n the results section. POC GLUCOSE Routine 03/16/2019 12:20 Results for this PM PLASTIC FINISHER procedure are i n the results section. POC GLUCOSE Routine 03/16/2019 7:39 Results for this AM PLASTIC FINISHER procedure are i n the results section. HC COMPLETE BLD COUNT Routine 03/16/2019 5:00 Re sults for this W/AUTO DIFF AM PLASTIC FINISHER procedure are i n the results section. POC GLUCOSE Routine 03/15/2019 7:51 Results for this PM PLASTIC FINISHER procedure are i n the results section. POC GLUCOSE Routine 03/15/2019 5:31 Results for this PM PLASTIC FINISHER procedure are i n the results section. POC GLUCOSE Routine 03/15/2019 1:29 Results for this PM PLASTIC FINISHER procedure are i n the results section. POC GLUCOSE Routine 03/15/2019 12:21 Results for this PM PLASTIC FINISHER procedure are i n the results section. HEMODIALYSIS Routine 03/15/2019 11:14 AM PLASTIC FINISHER POC GLUCOSE Routine 03/15/2019 7:48 Results for this AM PLASTIC FINISHER procedure are i n the results section. POC GLUCOSE Routine 03/15/2019 5:05 Results for this AM PLASTIC FINISHER procedure are i n the results section. HC COMPLETE BLD COUNT Routine 03/15/2019 5:00 Re sults for this W/AUTO DIFF AM PLASTIC FINISHER procedure are i n the results section. POC GLUCOSE Routine 03/14/2019 8:17 Results for this PM PLASTIC FINISHER procedure are i n the results section. POC GLUCOSE Routine 03/14/2019 4:31 Results for this PM PLASTIC FINISHER procedure are i n the results section. IR TUNNELED DIALYSIS Routine 03/14/2019 4:07 Res ults for this CATHETER PLACEMENT PM PLASTIC FINISHER procedure are in the results section. POC GLUCOSE Routine 03/14/2019 2:31 Results for this PM PLASTIC FINISHER procedure are i n the results section. POC GLUCOSE Routine 03/14/2019 11:17 Results for this AM PLASTIC FINISHER procedure are i n the results section. POC GLUCOSE Routine 03/14/2019 8:12 Results for this AM PLASTIC FINISHER procedure are i n the results section. ECG 12-LEAD Routine 03/14/2019 6:48 Results for this AM PLASTIC FINISHER procedure are i n the results section. HC COMPLETE BLD COUNT Routine 03/14/2019 5:00 Re sults for this W/AUTO DIFF AM PLASTIC FINISHER procedure are i n the results section. ESTIMATED GFR Routine 03/14/2019 12:00 Results fo r this AM PLASTIC FINISHER procedure are i n the results section. PHOSPHORUS LEVEL Routine 03/14/2019 12:00 Results for this AM PLASTIC FINISHER procedure are i n the results section. IONIZED CALCIUM Routine 03/14/2019 12:00 Results for this AM PLASTIC FINISHER procedure are i n the results section. MAGNESIUM LEVEL Routine 03/14/2019 12:00 Results for this AM PLASTIC FINISHER procedure are i n the results section. BASIC METABOLIC PANEL Routine 03/14/2019 12:00 Re sults for this AM PLASTIC FINISHER procedure are i n the results section. POC GLUCOSE Routine 03/13/2019 6:06 Results for this PM PLASTIC FINISHER procedure are i n the results section. POC GLUCOSE Routine 03/13/2019 11:38 Results for this AM PLASTIC FINISHER procedure are i n the results section. POC GLUCOSE Routine 03/13/2019 11:02 Results for this AM PLASTIC FINISHER procedure are i n the results section. POC GLUCOSE Routine 03/13/2019 7:55 Results for this AM PLASTIC FINISHER procedure are i n the results section. XR CHEST 1 VW Routine 03/13/2019 6:09 Results fo r this PORTABLE AM PLASTIC FINISHER procedure are i n the results section. POC GLUCOSE Routine 03/13/2019 4:24 Results for this AM PLASTIC FINISHER procedure are i n the results section. ECG 12-LEAD Routine 03/13/2019 4:16 Results for this AM PLASTIC FINISHER procedure are i n the results section. ESTIMATED GFR Routine 03/13/2019 1:45 Results fo r this AM PLASTIC FINISHER procedure are i n the results section. MAGNESIUM LEVEL Routine 03/13/2019 1:45 Results for this AM PLASTIC FINISHER procedure are i n the results section. BASIC METABOLIC PANEL Routine 03/13/2019 1:45 Re sults for this AM PLASTIC FINISHER procedure are i n the results section. CBC HEMOGRAM Routine 03/13/2019 1:45 Results for this AM PLASTIC FINISHER procedure are i n the results section. POC GLUCOSE Routine 03/12/2019 8:02 Results for this PM PLASTIC FINISHER procedure are i n the results section. HEMODIALYSIS Routine 03/12/2019 7:11 PM PLASTIC FINISHER POC GLUCOSE Routine 03/12/2019 5:09 Results for this PM PLASTIC FINISHER procedure are i n the results section. POC GLUCOSE Routine 03/12/2019 11:24 Results for this AM PLASTIC FINISHER procedure are i n the results section. XR CHEST 1 VW STAT 03/12/2019 9:44 Results fo r this PORTABLE AM PLASTIC FINISHER procedure are i n the results section. POC GLUCOSE Routine 03/12/2019 7:13 Results for this AM PLASTIC FINISHER procedure are i n the results section. XR CHEST 1 VW Routine 03/12/2019 6:47 Results fo r this PORTABLE AM PLASTIC FINISHER procedure are i n the results section. POC GLUCOSE Routine 03/12/2019 6:03 Results for this AM PLASTIC FINISHER procedure are i n the results section. ARTERIAL BLOOD GAS STAT 03/12/2019 5:58 Resul ts for this AM PLASTIC FINISHER procedure are i n the results section. POC GLUCOSE Routine 03/12/2019 4:18 Results for this AM PLASTIC FINISHER procedure are i n the results section. ECG 12-LEAD Routine 03/12/2019 3:39 Results for this AM PLASTIC FINISHER procedure are i n the results section. POC GLUCOSE Routine 03/12/2019 2:11 Results for this AM PLASTIC FINISHER procedure are i n the results section. ESTIMATED GFR Routine 03/12/2019 12:55 Results fo r this AM PLASTIC FINISHER procedure are i n the results section. MAGNESIUM LEVEL Routine 03/12/2019 12:55 Results for this AM PLASTIC FINISHER procedure are i n the results section. BASIC METABOLIC PANEL Routine 03/12/2019 12:55 Re sults for this AM PLASTIC FINISHER procedure are i n the results section. CBC HEMOGRAM Routine 03/12/2019 12:55 Results for this AM PLASTIC FINISHER procedure are i n the results section. POC GLUCOSE Routine 03/12/2019 12:04 Results for this AM PLASTIC FINISHER procedure are i n the results section. POC GLUCOSE Routine 03/11/2019 11:09 Results for this PM PLASTIC FINISHER procedure are i n the results section. POC GLUCOSE Routine 03/11/2019 10:11 Results for this PM PLASTIC FINISHER procedure are i n the results section. POC GLUCOSE Routine 03/11/2019 9:42 Results for this PM PLASTIC FINISHER procedure are i n the results section. POC GLUCOSE Routine 03/11/2019 8:51 Results for this PM PLASTIC FINISHER procedure are i n the results section. POC GLUCOSE Routine 03/11/2019 6:09 Results for this PM PLASTIC FINISHER procedure are i n the results section. POC GLUCOSE Routine 03/11/2019 5:13 Results for this PM PLASTIC FINISHER procedure are i n the results section. HEMODIALYSIS Routine 03/11/2019 4:49 PM PLASTIC FINISHER POC GLUCOSE Routine 03/11/2019 4:40 Results for this PM PLASTIC FINISHER procedure are i n the results section. ECG 12-LEAD STAT 03/11/2019 4:10 Results for this PM PLASTIC FINISHER procedure are i n the results section. POC GLUCOSE Routine 03/11/2019 3:25 Results for this PM PLASTIC FINISHER procedure are i n the results section. ARTERIAL BLOOD GAS STAT 03/11/2019 3:07 Resul ts for this PM PLASTIC FINISHER procedure are i n the results section. POC GLUCOSE Routine 03/11/2019 2:18 Results for this PM PLASTIC FINISHER procedure are i n the results section. XR CHEST 1 VW Routine 03/11/2019 2:17 Results fo r this PORTABLE PM PLASTIC FINISHER procedure are i n the results section. IONIZED CALCIUM, Routine 03/11/2019 1:34 Results for this ARTERIAL PM PLASTIC FINISHER procedure are i n the results section. ESTIMATED GFR Routine 03/11/2019 1:34 Results fo r this PM PLASTIC FINISHER procedure are i n the results section. ARTERIAL BLOOD GAS Routine 03/11/2019 1:34 Resul ts for this PM PLASTIC FINISHER procedure are i n the results section. PARTIAL Routine 03/11/2019 1:34 Results for this THROMBOPLASTIN TIME PM PLASTIC FINISHER procedur e are in (PTT) the results section. PROTHROMBIN TIME WITH Routine 03/11/2019 1:34 Re sults for this INR PM PLASTIC FINISHER procedure are i n the results section. PHOSPHORUS LEVEL Routine 03/11/2019 1:34 Results for this PM PLASTIC FINISHER procedure are i n the results section. MAGNESIUM LEVEL Routine 03/11/2019 1:34 Results for this PM PLASTIC FINISHER procedure are i n the results section. HC COMPLETE BLD COUNT Routine 03/11/2019 1:34 Re sults for this W/AUTO DIFF PM PLASTIC FINISHER procedure are i n the results section. BASIC METABOLIC PANEL Routine 03/11/2019 1:34 Re sults for this PM PLASTIC FINISHER procedure are i n the results section. POC GLUCOSE Routine 03/11/2019 1:27 Results for this PM PLASTIC FINISHER procedure are i n the results section. CONSULT CARDIAC REHAB Routine 03/11/2019 1:14 PHASE 1 PM PLASTIC FINISHER ACTIVATED CLOTTING Routine 03/11/2019 11:50 Resul ts for this TIME AM PLASTIC FINISHER procedure are i n the results section. GLUCOSE LEVEL, STAT 03/11/2019 11:14 Results f or this SYRINGE AM PLASTIC FINISHER procedure are i n the results section. LACTIC ACID, SYRINGE STAT 03/11/2019 11:14 Res ults for this AM PLASTIC FINISHER procedure are i n the results section. IONIZED CALCIUM, STAT 03/11/2019 11:14 Results for this ARTERIAL AM PLASTIC FINISHER procedure are i n the results section. HEMOGLOBIN, SYRINGE STAT 03/11/2019 11:14 Resu lts for this AM PLASTIC FINISHER procedure are i n the results section. SODIUM LEVEL, SYRINGE STAT 03/11/2019 11:14 Re sults for this AM PLASTIC FINISHER procedure are i n the results section. POTASSIUM, SYRINGE STAT 03/11/2019 11:14 Resul ts for this AM PLASTIC FINISHER procedure are i n the results section. ARTERIAL BLOOD GAS STAT 03/11/2019 11:14 Resul ts for this AM PLASTIC FINISHER procedure are i n the results section. ACTIVATED CLOTTING Routine 03/11/2019 10:48 Resul ts for this TIME AM PLASTIC FINISHER procedure are i n the results section. TRANSFUSE RED BLOOD Routine 03/11/2019 10:31 CELLS AM PLASTIC FINISHER TRANSFUSE RED BLOOD Routine 03/11/2019 10:10 CELLS AM PLASTIC FINISHER ANESTHESIA RASHEL Routine 03/11/2019 9:06 Results f or this AM PLASTIC FINISHER procedure are i n the results section. CENTRAL LINE Routine 03/11/2019 9:05 Results for this AM PLASTIC FINISHER procedure are i n the results section. ARTERIAL LINE Routine 03/11/2019 9:05 Results fo r this AM PLASTIC FINISHER procedure are i n the results section. ANESTHESIA INTUBATION Routine 03/11/2019 9:04 Re sults for this AM PLASTIC FINISHER procedure are i n the results section. ACTIVATED CLOTTING Routine 03/11/2019 8:30 Resul ts for this TIME AM PLASTIC FINISHER procedure are i n the results section. ARTERIAL BLOOD GAS, STAT 03/11/2019 8:30 Resu lts for this CORRECTED AM PLASTIC FINISHER procedure are i n the results section. POTASSIUM, SYRINGE STAT 03/11/2019 8:30 Resul ts for this AM PLASTIC FINISHER procedure are i n the results section. SODIUM LEVEL, SYRINGE STAT 03/11/2019 8:30 Re sults for this AM PLASTIC FINISHER procedure are i n the results section. HEMOGLOBIN, SYRINGE STAT 03/11/2019 8:30 Resu lts for this AM PLASTIC FINISHER procedure are i n the results section. IONIZED CALCIUM, STAT 03/11/2019 8:30 Results for this ARTERIAL AM PLASTIC FINISHER procedure are i n the results section. GLUCOSE LEVEL, STAT 03/11/2019 8:30 Results f or this SYRINGE AM PLASTIC FINISHER procedure are i n the results section. PREPARE RBC Routine 03/11/2019 7:59 Results for this AM PLASTIC FINISHER procedure are i n the results section. TYPE AND SCREEN Routine 03/11/2019 7:59 Results for this AM PLASTIC FINISHER procedure are i n the results section. ESTIMATED GFR Routine 03/11/2019 5:30 Results fo r this AM PLASTIC FINISHER procedure are i n the results section. BASIC METABOLIC PANEL Routine 03/11/2019 5:30 Re sults for this AM PLASTIC FINISHER procedure are i n the results section. POC GLUCOSE Routine 03/11/2019 5:00 Results for this AM PLASTIC FINISHER procedure are i n the results section. POC GLUCOSE Routine 03/10/2019 9:15 Results for this PM PLASTIC FINISHER procedure are i n the results section. HEMODIALYSIS Routine 03/10/2019 6:52 PM PLASTIC FINISHER POC GLUCOSE Routine 03/10/2019 4:53 Results for this PM PLASTIC FINISHER procedure are i n the results section. POC GLUCOSE Routine 03/10/2019 1:03 Results for this PM PLASTIC FINISHER procedure are i n the results section. POC GLUCOSE Routine 03/10/2019 11:29 Results for this AM PLASTIC FINISHER procedure are i n the results section. POC GLUCOSE Routine 03/10/2019 7:53 Results for this AM PLASTIC FINISHER procedure are i n the results section. HC COMPLETE BLD COUNT Routine 03/10/2019 6:30 Re sults for this W/AUTO DIFF AM PLASTIC FINISHER procedure are i n the results section. ESTIMATED GFR Routine 03/10/2019 4:00 Results fo r this AM PLASTIC FINISHER procedure are i n the results section. T4, FREE Routine 03/10/2019 4:00 Results for this AM PLASTIC FINISHER procedure are i n the results section. THYROID STIMULATING Routine 03/10/2019 4:00 Resu lts for this HORMONE AM PLASTIC FINISHER procedure are i n the results section. HEPATIC FUNCTION Routine 03/10/2019 4:00 Results for this PANEL AM PLASTIC FINISHER procedure are i n the results section. LIPID PANEL Routine 03/10/2019 4:00 Results for this AM PLASTIC FINISHER procedure are i n the results section. BASIC METABOLIC PANEL Routine 03/10/2019 4:00 Re sults for this AM PLASTIC FINISHER procedure are i n the results section. POC GLUCOSE Routine 03/09/2019 9:22 Results for this PM PLASTIC FINISHER procedure are i n the results section. POC GLUCOSE Routine 03/09/2019 4:40 Results for this PM PLASTIC FINISHER procedure are i n the results section. HEPATITIS B SURFACE STAT 03/09/2019 1:45 Resu lts for this ANTIGEN PM PLASTIC FINISHER procedure are i n the results section. POC GLUCOSE Routine 03/09/2019 12:44 Results for this PM PLASTIC FINISHER procedure are i n the results section. POC GLUCOSE Routine 03/09/2019 8:11 Results for this AM PLASTIC FINISHER procedure are i n the results section. ESTIMATED GFR Routine 03/09/2019 5:25 Results fo r this AM PLASTIC FINISHER procedure are i n the results section. MAGNESIUM LEVEL Routine 03/09/2019 5:25 Results for this AM PLASTIC FINISHER procedure are i n the results section. BASIC METABOLIC PANEL Routine 03/09/2019 5:25 Re sults for this AM PLASTIC FINISHER procedure are i n the results section. HC COMPLETE BLD COUNT Routine 03/09/2019 5:20 Re sults for this W/AUTO DIFF AM PLASTIC FINISHER procedure are i n the results section. POC GLUCOSE Routine 03/08/2019 11:06 Results for this PM PLASTIC FINISHER procedure are i n the results section. HEMODIALYSIS CATHETER Routine 03/08/2019 10:42 Chronic kidney disease, Results for this PLACEMENT PM PLASTIC FINISHER unspecified CKD stage proced ure are in the results section. POC GLUCOSE Routine 03/08/2019 9:32 Results for this PM PLASTIC FINISHER procedure are i n the results section. HEMODIALYSIS Routine 03/08/2019 6:17 PM PLASTIC FINISHER POC GLUCOSE Routine 03/08/2019 5:27 Results for this PM PLASTIC FINISHER procedure are i n the results section. POC GLUCOSE Routine 03/08/2019 5:22 Results for this PM PLASTIC FINISHER procedure are i n the results section. POC GLUCOSE Routine 03/08/2019 12:25 Results for this PM PLASTIC FINISHER procedure are i n the results section. POC GLUCOSE Routine 03/08/2019 12:24 Results for this PM PLASTIC FINISHER procedure are i n the results section. POC GLUCOSE Routine 03/08/2019 8:23 Results for this AM PLASTIC FINISHER procedure are i n the results section. POC GLUCOSE Routine 03/08/2019 6:34 Results for this AM PLASTIC FINISHER procedure are i n the results section. ESTIMATED GFR Routine 03/08/2019 5:00 Results fo r this AM PLASTIC FINISHER procedure are i n the results section. BASIC METABOLIC PANEL Routine 03/08/2019 5:00 Re sults for this AM PLASTIC FINISHER procedure are i n the results section. HC COMPLETE BLD COUNT Routine 03/08/2019 5:00 Re sults for this W/AUTO DIFF AM PLASTIC FINISHER procedure are i n the results section. POC GLUCOSE Routine 03/07/2019 9:15 Results for this PM PLASTIC FINISHER procedure are i n the results section. POC GLUCOSE Routine 03/07/2019 5:57 Results for this PM PLASTIC FINISHER procedure are i n the results section. POC GLUCOSE Routine 03/07/2019 11:23 Results for this AM PLASTIC FINISHER procedure are i n the results section. POC GLUCOSE Routine 03/07/2019 7:58 Results for this AM PLASTIC FINISHER procedure are i n the results section. ESTIMATED GFR Routine 03/07/2019 7:40 Results fo r this AM PLASTIC FINISHER procedure are i n the results section. TYPE AND SCREEN Routine 03/07/2019 7:40 Results for this AM PLASTIC FINISHER procedure are i n the results section. BASIC METABOLIC PANEL Routine 03/07/2019 7:40 Re sults for this AM PLASTIC FINISHER procedure are i n the results section. HC COMPLETE BLD COUNT Routine 03/07/2019 7:40 Re sults for this W/AUTO DIFF AM PLASTIC FINISHER procedure are i n the results section. POC GLUCOSE Routine 03/07/2019 4:53 Results for this AM PLASTIC FINISHER procedure are i n the results section. SMEAR REVIEW Routine 03/07/2019 4:45 Results for this AM PLASTIC FINISHER procedure are i n the results section. ESTIMATED GFR Routine 03/07/2019 4:45 Results fo r this AM PLASTIC FINISHER procedure are i n the results section. B NATRIURETIC PEPTIDE Routine 03/07/2019 4:45 Re sults for this AM PLASTIC FINISHER procedure are i n the results section. HC COMPLETE BLD COUNT Routine 03/07/2019 4:45 Re sults for this W/AUTO DIFF AM PLASTIC FINISHER procedure are i n the results section. BASIC METABOLIC PANEL Routine 03/07/2019 4:45 Re sults for this AM PLASTIC FINISHER procedure are i n the results section. VENOUS BLOOD GAS Routine 03/07/2019 4:45 Results for this AM PLASTIC FINISHER procedure are i n the results section. URINALYSIS SCREEN AND Routine 03/07/2019 1:00 Re sults for this MICROSCOPY, WITH AM PLASTIC FINISHER procedure a re in REFLEX TO CULTURE the result s section. POC GLUCOSE Routine 03/06/2019 8:59 Results for this PM PLASTIC FINISHER procedure are i n the results section. POC GLUCOSE Routine 03/06/2019 4:45 Results for this PM PLASTIC FINISHER procedure are i n the results section. US CAROTID DUPLEX Routine 03/06/2019 3:45 Result s for this BILATERAL PM PLASTIC FINISHER procedure are i n the results section. TTE COMPLETE, WO Routine 03/06/2019 3:29 Results for this CONTRAST, W DOPPLER PM PLASTIC FINISHER procedur e are in [id number]) the results section. HEMOGLOBIN A1C Routine 03/06/2019 3:05 Results f or this PM PLASTIC FINISHER procedure are i n the results section. URINE CULTURE Routine 03/06/2019 12:19 Results fo r this PM PLASTIC FINISHER procedure are i n the results section. GRAM STAIN Routine 03/06/2019 12:19 Results for this PM PLASTIC FINISHER procedure are i n the results section. POC GLUCOSE Routine 03/06/2019 12:05 Results for this PM PLASTIC FINISHER procedure are i n the results section. CREATININE LEVEL, Routine 03/06/2019 10:55 Result s for this URINE, RANDOM AM PLASTIC FINISHER procedure are in the results section. SODIUM LEVEL, URINE, Routine 03/06/2019 10:55 Res ults for this RANDOM AM PLASTIC FINISHER procedure are i n the results section. URINALYSIS SCREEN AND Routine 03/06/2019 10:55 Re sults for this MICROSCOPY, WITH AM PLASTIC FINISHER procedure a re in REFLEX TO CULTURE the result s section. POC GLUCOSE Routine 03/06/2019 8:50 Results for this AM PLASTIC FINISHER procedure are i n the results section. ESTIMATED GFR Routine 03/06/2019 3:55 Results fo r this AM PLASTIC FINISHER procedure are i n the results section. PHOSPHORUS LEVEL Routine 03/06/2019 3:55 Results for this AM PLASTIC FINISHER procedure are i n the results section. MAGNESIUM LEVEL Routine 03/06/2019 3:55 Results for this AM PLASTIC FINISHER procedure are i n the results section. HC COMPLETE BLD COUNT Routine 03/06/2019 3:55 Re sults for this W/AUTO DIFF AM PLASTIC FINISHER procedure are i n the results section. B NATRIURETIC PEPTIDE Routine 03/06/2019 3:55 Re sults for this AM PLASTIC FINISHER procedure are i n the results section. BASIC METABOLIC PANEL Routine 03/06/2019 3:55 Re sults for this AM PLASTIC FINISHER procedure are i n the results section. POC GLUCOSE Routine 03/06/2019 1:30 Results for this AM PLASTIC FINISHER procedure are i n the results section. POC GLUCOSE Routine 03/05/2019 9:16 Results for this PM PLASTIC FINISHER procedure are i n the results section. POC GLUCOSE Routine 03/05/2019 5:09 Results for this PM PLASTIC FINISHER procedure are i n the results section. HEMOGLOBIN A1C Routine 03/05/2019 4:30 Results f or this PM PLASTIC FINISHER procedure are i n the results section. POC GLUCOSE Routine 03/05/2019 11:34 Results for this AM PLASTIC FINISHER procedure are i n the results section. CV LEFT HEART CATH Routine 03/05/2019 8:13 ASCVD (arterioscle rotic Results for this AM PLASTIC FINISHER cardiovascular disease) proc edure are in the results section. CV SELECTIVE CORONARY Routine 03/05/2019 8:13 ASCVD (arterios clerotic Results for this ANGIOGRAPHY AM PLASTIC FINISHER cardiovascular disease) proc edure are in the results section. ESTIMATED GFR Routine 03/05/2019 3:20 Results fo r this AM PLASTIC FINISHER procedure are i n the results section. THYROID STIMULATING Routine 03/05/2019 3:20 Resu lts for this HORMONE AM PLASTIC FINISHER procedure are i n the results section. MAGNESIUM LEVEL Routine 03/05/2019 3:20 Results for this AM PLASTIC FINISHER procedure are i n the results section. B NATRIURETIC PEPTIDE Routine 03/05/2019 3:20 Re sults for this AM PLASTIC FINISHER procedure are i n the results section. BASIC METABOLIC PANEL Routine 03/05/2019 3:20 Re sults for this AM PLASTIC FINISHER procedure are i n the results section. HC COMPLETE BLD COUNT Routine 03/05/2019 3:20 Re sults for this W/AUTO DIFF AM PLASTIC FINISHER procedure are i n the results section. ANTI XA, Routine 03/05/2019 2:14 Results for this UNFRACTIONATED AM PLASTIC FINISHER procedure are in the results section. TROPONIN Routine 03/05/2019 12:40 Results for this AM PLASTIC FINISHER procedure are i n the results section. ECG 12-LEAD STAT 03/05/2019 12:35 Results for this AM PLASTIC FINISHER procedure are i n the results section. ANTI XA, STAT 03/04/2019 7:48 Results for this UNFRACTIONATED PM PLASTIC FINISHER procedure are in the results section. TROPONIN Timed 03/04/2019 3:29 Results for this PM PLASTIC FINISHER procedure are i n the results section. TROPONIN Timed 03/04/2019 12:31 Results for this PM PLASTIC FINISHER procedure are i n the results section. XR CHEST 1 VW STAT 03/04/2019 9:40 Results fo r this PORTABLE AM PLASTIC FINISHER procedure are i n the results section. ESTIMATED GFR STAT 03/04/2019 9:35 Results fo r this AM PLASTIC FINISHER procedure are i n the results section. BASIC METABOLIC PANEL STAT 03/04/2019 9:35 Re sults for this AM PLASTIC FINISHER procedure are i n the results section. ANTI XA, STAT 03/04/2019 9:30 Results for this UNFRACTIONATED AM PLASTIC FINISHER procedure are in the results section. B NATRIURETIC PEPTIDE STAT 03/04/2019 9:30 Re sults for this AM PLASTIC FINISHER procedure are i n the results section. TROPONIN STAT 03/04/2019 9:30 Results for this AM PLASTIC FINISHER procedure are i n the results section. PARTIAL STAT 03/04/2019 9:30 Results for this THROMBOPLASTIN TIME AM PLASTIC FINISHER procedur e are in (PTT) the results section. PROTHROMBIN TIME WITH STAT 03/04/2019 9:30 Re sults for this INR AM PLASTIC FINISHER procedure are i n the results section. HC COMPLETE BLD COUNT STAT 03/04/2019 9:30 Re sults for this W/AUTO DIFF AM PLASTIC FINISHER procedure are i n the results section. ECG ED PRELIMINARY Routine 03/04/2019 9:17 Resul ts for this INTERPRETATION AM PLASTIC FINISHER procedure are in the results section. MI CRITICAL CARE, E/M Routine 03/04/2019 9:17 Re sults for this 30-74 MINUTES AM PLASTIC FINISHER procedure are in the results section. ECG 12-LEAD STAT 03/04/2019 9:17 Results for this AM PLASTIC FINISHER procedure are i n the results section. after 01/26/2019 Results Us duplex hemodialysis avg avf access (12/25/2019 1:45 PM PLASTIC FINISHER) Specimen Narrative Performed At [facility] t - Fistula Report [id number] [facility], Medical Office [address], [address], [place] [address] Pat.Name: JULEE JEFFERSON Pat.ID: [id number] .Date: 12/25/2019 Refer.MD: CRAIG BARBOSA MD Exam Time: 1:10:00 PM Study Type:A V Graft - Fistula Height: 65in A ge: 1955,64Y Sex: FEMALE Sonogrp hr: LISA Fragoso, RVT Echo Event ID:[id number] Order ID: [id number] History / Clinical:DM, Anemia, CAD, Ольга nary [...] Central ED 255 cm/s Right Basilic Vn [place] Brachiobasil ic:AV Fistula Basilic V Conf 228 cm/s Basilic V Conf 72 cm/s Right Axillary V Dist Brachiobasilic:AV Fistula Axillary V Dist 46 cm/s Axillary V Dist 18 cm/s Signed 12/26/2019 09:19 AM Craig Barbosa MD Procedure Note Interface, Radiology Results In - 2019 9:20 AM PLASTIC FINISHER [facility] AV Graft - Fistula Report [id number] [facility], Medical [address], [place] [id number] Pat.Name: JULEE JEFFERSON Pat.I D: [id number] St.Date: 12/25/2019 Refer .MD: CRAIG BARBOSA MD Exam Time: 1:10:00 PM Study Type:AV Graft - Fistula Height: 65in Age: 8 1955,64Y Sex: FEMALE Sonog rphr: LISA Fragoso, RVT Echo Event ID:[id number] Order ID: [id number] History / Clinical:DM, Anemia, CAD, Ольга nary [...] Central ED 255 cm/s Right Basilic Vn [place] Brachiobasil ic:AV Fistula Basilic V Conf 228 cm/s Basi lic V Conf 72 cm/s Right Axillary V Dist Brachiobasilic:AV Fistula Axillary V Dist 46 cm/s Axil bart V Dist 18 cm/s Signed 12/26/2019 09:19 AM Craig Barbosa MD Performing Organization Address [facility]/ZIP Code Phon e Number CUPID [address] [place] [address] POC glucose (11/25/2019 3:36 PM CDT)Only the most recent of89 resultswithin the time period is included. Pathologist Sig nature POC glucose 106 (H) 65 - 99 mg/dL [facility] Comment: [facility] [employer] Social [employer] Tutor Name: Rovillos Ray Device ID: [id number] Specimen Blood Performing Organization Address [facility] Phon e Number HMSL DEPARTMENT OF PATHOLOGY [id number] [place] [address] AND GENOMIC MEDICINE [facility] [id number] [place] [address] X [address] [facility] Peripheral Block (11/25/2019 12:13 PM CDT) Narrative Performed At Zachery Sin MD 11/25/2019 12:18 PM Peripheral Block Date/Time: 11/25/2019 12:01 PM Performed by: Zachery Sin MD Authorized by: Zachery Sin MD Patient Location: Holding area Start Time: 11/25/2019 11:41 AM End Time: 11/25/2019 12:04 PM Staff: Anesthesiologist: Kofi Sin MD Resident/KITCHEN HELP HANDYMAN/AA: Sarah Soliz CRNA Performed by: Anesthesiologist Preprocedure: [...] of17 resultswithin the time period is included. Estimated GFR 15 (A) mL/min/1.73 RICHARD CANELA Comment: m2 [place] Catergory Units Interpretation HOS PITAL G1 >=90 [...] published in 2014. Specimen Performing Organization Address City/State/ZIP Code Phon e Number [facility] DEPARTMENT OF PATHOLOGY [address] [facility]. Kristina Molina, [place] X [address] AND GENOMIC MEDICINE [place] MORMONISM KRISTINA MOLINA [address] [facility]. Kristina Mol[address] Partial thromboplastin time, activated (11/25/2019 10:00 AM CDT)Only the most recent of3 resultswithin the time period is included. PTT 34.4 23.0 - 36.0 [facility] Comment: [facility] PTT therapeutic range for unfractionated heparin is HOSPITAL 61.0-112.0 seconds which corresponds to Anti-Xa 0.3-0.7 U/ml. Specimen Blood Performing Organization Address City/[facility]/ZIP Code Phon e Number [facility] DEPARTMENT OF PATHOLOGY [address] [place] [address] Prothrombin time with INR (11/25/2019 10:00 AM CDT)Only the most recent of3 resultswithin the time period is included. Prothrombin time 13.9 11.5 - 14.5 [facility] INR 1.1 [place] Comment: [facility] Normalized Ratio (INR) is a therapeu [facility] monitoring tool for patients who are stable on oral anticoagulant therapy. An INR of 2.0-3.0 is suggested for deep vein thrombosis/pulmonary embolism. Specimen Blood Performing Organization Address City/[facility] Phon e Number [facility] DEPARTMENT OF PATHOLOGY [address] [place] [address] AND [place] [address] HOSPITAL Type and screen (11/25/2019 10:00 AM CDT)Only the most recent of4 resultswithin the time period is included. Pathologist Sig nature ABO grouping A [facility] Rh type POS [facility] Antibody screen (gel) NEG [facility] Specimen Blood Performing Organization Address City/[facility] Phon e Number [facility] DEPARTMENT OF PATHOLOGY [address] [place] [address] Comprehensive metabolic panel (11/25/2019 10:00 AM CDT) Pathologist Sig nature Sodium 138 135 - 148 mEq/L [facility] Potassium 4.3 3.5 - 5.0 mEq/L [facility] Chloride 103 98 - 112 mEq/L [facility] CO2 23 (L) 24 - 31 mEq/L [facility] Anion gap 12@ANIO 7 - 15 mEq/L [facility] BUN 33 (H) 8 - 23 mg/dL [facility] Creatinine 3.10 (H) 0.50 - 0.90 [facility] mg/dL [facility] Glucose 170 (H) 65 - 99 mg/dL [facility] Calcium 9.5 8.8 - 10.2 [facility] mg/dL [facility] Protein 7.8 6.3 - 8.3 g/dL [facility] Albumin 3.8 3.5 - 5.0 g/dL [facility] A/G ratio 1.0 0.7 - 3.8 [facility] Alkaline phosphatase 106 (H) 35 - 104 U/L [facility] AST 20 10 - 35 U/L [facility] ALT 9 5 - 50 U/L [facility] Total bilirubin 0.3 0.2 - 1.2 mg/dL [facility] Specimen Blood Performing Organization Address City/State/ZIP Code Phon e Number [facility] DEPARTMENT OF PATHOLOGY [address] [facility] [place] [address] AND GENOMIC MEDICINE [facility] [address] [facility] [place] [address] HOSPITAL XR Chest 2 Vw (11/20/2019 6:33 [...] process. Remainder of the examination is unchanged. [facility]-[id number] Procedure Note Hm Interface, Radiology Results Incoming - 11/20/2019 6:46 [...] process. Remainder of the examination is unchanged. [facility]-[id number] Performing Organization Address City/[facility] Phon e Number [facility] [address] [place] [address] COVID-19 qualitative PCR (11/20/2019 5:21 PM CDT) Interpretation Negative results do not prec lude 2019-nCoV infection and should not be used as the sole basis for treatment or other patient management decisions. Negative results must be combined with clinical observations, patient history, and epidemiological RAMOS information. [facility] COVID-19 qualitative Not-Detected Not-Detecte [place] PCR result d [facility] COVID-19 qualitative See link below for [place] PCR PDF Lab MORMONISM ReportComment: Case HOSPITAL Number: [id number] Specimen Nasal swab Performing Organization Address City/[facility] Phon e Number [facility] DEPARTMENT OF PATHOLOGY AND [address] [place] [address] GENOMIC MEDICINE [address] [address] [facility] CBC with platelet and differential (11/20/2019 5:21 PM CDT)Only the most recent of15 resultswithin the time period is included. WBC 6.1 4.5 - 11.0 k/uL [facility] RBC 3.15 (L) 4.20 - 5.50 [facility] m/uL [facility] HGB 10.7 (L) 12.0 - 16.0 [facility] g/dL [facility] HCT 33.8 (L) 37.0 - 47.0 % [facility] MCV 107.3 (H) 82.0 - 100.0 fL [facility] MCH 34.0 27.0 - 34.0 pg [facility] MCHC 31.7 31.0 - 37.0 [facility] g/dL [facility] RDW - SD 50.0 37.0 - 55.0 fL [facility] MPV 10.8 6.9 - 11.0 fL [facility] Platelet count 154 150 - 400 K/uL [facility] Nucleated RBC 0.00 /100 WBC [facility] Neutrophils 71.6 (H) 39.0 - 69.0 % [facility] Lymphocytes 17.0 (L) 25.0 - 45.0 % [facility] Monocytes 7.8 0.0 - 10.0 % [facility] Eosinophils 3.0 0.0 - 5.0 % [facility] Basophils 0.3 0.0 - 1.0 % [facility] Immature granulocytes 0.3 0.0 - 1.0 % [facility] Specimen Nasal swab Performing Organization Address City/[facility]/ZIP [facility] Phon e Number [facility] DEPARTMENT OF PATHOLOGY [id number] [place] [address] Hemoglobin A1c (11/20/2019 5:21 PM CDT)Only the most recent of3 resultswithin the time period is included. Hemoglobin A1C 6.9 (H) 4.0 - 5.6 % [facility] Comment: [place] HbA1c cutoffs for diagnosing diabetes: HO SPITAL [...] diabetes. Specimen Nasal swab Performing Organization Address City/State/ZIP Code Phon e Number [facility] DEPARTMENT OF PATHOLOGY [id number] [place] [address] X [address] AND [facility] [address] [place] [address] ECG Pre/Post Op (11/20/2019 4:57 PM CDT)Only the most recent of2 resultswithin the time period is included. Pathologist Sig nature Ventricular rate 66 [facility] Atrial rate 66 [facility] MI interval 142 [facility] QRSD interval 162 [facility] QT interval 510 [facility] QTC interval 534 [facility] P axis 1 -16 [facility] QRS axis 1 43 [facility] T wave axis -67 [facility] EKG impression ^^^ Suspect unspecified pace maker vecrwze-Gkthif-uikgmw ventricular-paced rhythm-Abnormal ECG-In automated comparison with ECG of 25-JUL-2019 10:32,-Vent. rate has increased BY 6 BPM-Electronically S [facility] MUSE igned By Marco Antonio FITZPATRICK, Htut ([id number]) on 11/22/2019 12:50:18 AM Specimen Narrative Performed At This result has an attachment that is no t available. Performing Organization Address City/State/ZIP Code Phon e Number [facility] MUSE [address] [place] [address] vein mapping upper extremity (11/20/2019 3:50 PM CDT) Specimen Narrative Performed At PERIPHERAL VASCULAR LABORATORY [facility] ty Vein Mapping Report [id number] [facility] Medical Office [address], [place] [address] Pat.Name: JULEE JEFFERSON Pat.ID: [id number] .Date: 11/20/2019 Refer.MD: CRAIG BARBOSA MD Exam Time: 3:22:00 PM Study Type:U E Vein Mapping Height: 65in Weight: 181lb BSA: 1.9 m2 A ge: 1955,64Y Sex: FEMALE Sonogrphr: Ana Feliz RDCS, RVT Pat. Stat.:Outpatient Room: [facility] Vol: ED, CPT - 4: 32017 Echo Event ID:[id number] Order ID: [id number] Reason for Study:Dialysis access plannin g History [...] LABORATORY Upper Extremity Vein M apping Report [id number] [facility], Medical [address], [address], [place] [address] Pat.Name: JULEE JEFFERSON Pat.I D: [id number] .Date: 11/20/2019 Refer .MD: CRAIG BARBOSA MD Exam Time: 3:22:00 PM Study Type:UE Vein Mapping Height: 65in Weigh t: 181lb BSA: 1.9 m2 Age: 7 1955,64Y Sex: FEMALE Sonogrphr: Ana Feliz RDCS, RVT Pat. Stat.:Outpatient Room: [facility] Vol: ED, CPT - 4: 06860 Echo Event ID:[id number] Order ID: [id number] Reason for Study:Dialysis access plannin g History [...] Left Brachial Artery Brachial Artery 0.38 cm Brac hial Artery 2.19 cm Signed 11/21/2019 02:54 PM Craig Barbosa MD Performing Organization Address City/[facility]/ZIP Code Phon e Number CUPID [address] [place] [address] Hepatitis B surface antigen (07/25/2019 12:15 PM CDT)Only the most recent of3 resultswithin the time period is included. Pathologist Sig nature Hepatitis B surface Non-reactive Non-reactive [facility] Specimen Blood Performing Organization Address City/[facility] Code Phon e Number [facility] DEPARTMENT OF PATHOLOGY AND [address] [place] [address] GENOMIC MEDICINE [place] [id number] [place] [address] XR Chest 1 Vw Portable (07/25/2019 10:38 [...] The bones of the chest are unchanged. [facility]-[id number] Procedure Note Interface, Radiology Results Incoming - [...] The bones of the chest are unchanged. [facility]-[id number] Performing Organization Address City/[facility] Phon e Number RADIANT [address] [place] [address] ECG 12 lead (07/25/2019 10:32 AM CDT)Only the most recent of7 resultswithin the time period is included. Pathologist Sig nature Ventricular rate 60 [facility] Atrial rate 60 [facility] MI interval 176 [facility] QRSD interval 170 [facility] QT interval 632 [facility] QTC interval 632 [facility] P axis 1 -11 [facility] QRS axis 1 199 [facility] T wave axis 36 [facility] EKG impression AV dual-paced [facility] MUSE rhythm- Specimen Narrative Performed At This result has an attachment that is no t available. Performing Organization Address City/[facility] Phon e Number [facility] MUSE [address] [place] [address] Electrophysiology procedure (07/25/2019 9:43 AM CDT) Specimen Narrative Performed At This result has an attachment that is no t available. REASON FOR PROCEDURE: HM SYNGO 1. Severe ischemic cardiomyopathy. 2. [place] Heart Association class 3 congestive heart failure. [...] were advanced into the inferior vena cava. 7-Angolan sheath was placed over one of the [...] 0-Ethibond suture x2 over the collar. A 6-Angolan sheath was placed over the second J-wire an d a pacing lead was advanced through the sheath and placed in the heart. T he sheath was peeled away. A 9-Angolan sheath was placed over the final J-wire [...] Dermanet dressing were applied. Performing Organization Address City/[facility] Phon e Number SYNGO [address] [place] [address], POC panel (07/25/2019 7:14 AM CDT) POC sodium 139 135 - 148 [facility] mmol/L [employer] [facility] [facility] POC potassium 4.3 3.5 - 5.0 [facility] mmol/L [employer] [facility] [employer] [facility] POC chloride 104 99 - 109 [facility] mmol/L [employer] [facility] [facility] POC CO2 24 24 - 31 mmol/L [facility] POC glucose 104 (H) 65 - 99 mg/dL [facility] POC BUN 50 (H) 8 - 24 mg/dL [facility] POC creatinine 3.9 (H) 0.5 - 0.9 [facility] mg/dl [facility] [facility] POC hematocrit 37 37 - 47 % [facility] POC anion gap 17 8 - 20 mmol/L [facility] Comment: HOSPITAL [employer] Tutor Name: Sheth Skye Device ID: [id number] Specimen Performing Organization Address [facility] Phon e Number [facility] DEPARTMENT OF PATHOLOGY AND [address] [place], [place] [address] 0 [place] [address] Manual differential (03/19/2019 5:45 AM PLASTIC FINISHER)Only the most recent of2 results within the time period is included. Manual differential PERFORMED [facility] Neutrophils 66.0 39.0 - 69.0 % [facility] Lymphocytes 22.0 (L) 25.0 - 45.0 % [facility] Monocytes 8.0 0.0 - 10.0 % [facility] Eosinophils 4.0 0.0 - 5.0 % [facility] Basophils 0.0 0.0 - 1.0 % [facility] Metamyelocytes 0 % [facility] Promyelocytes 0 % [facility] Platelet slide review Dafne adequate [facility] Anisocytosis Moderate [facility] Specimen Performing Organization Address City/[facility] Phon e Number [facility] DEPARTMENT OF PATHOLOGY AND [address] [place], [place] [address] [address] [place] [address] [place] [address] Basic metabolic panel (03/19/2019 5:37 AM PLASTIC FINISHER)Only the most recent of15 results within the time period is included. Pathologist Sig nature Sodium 136 135 - 148 mEq/L [facility] Potassium 4.5 3.5 - 5.0 mEq/L [facility] Chloride 99 98 - 112 mEq/L [facility] CO2 22 (L) 24 - 31 mEq/L [facility] Anion gap 15@ANIO 7 - 15 mEq/L [facility] BUN 31 (H) 8 - 23 mg/dL [facility] Creatinine 2.14 (H) 0.50 - 0.90 mg/dL [facility] Glucose 164 (H) 65 - 99 mg/dL [facility] Calcium 8.3 (L) 8.8 - 10.2 mg/dL [facility] Specimen Plasma specimen Performing Organization Address City/State/ZIP Code Phon e Number [facility] DEPARTMENT OF PATHOLOGY AND [address] [place] [address] [facility] [address] [place] [address] Hepatitis B surface Ab, quantitative (03/18/2019 10:11 AM PLASTIC FINISHER) Hepatitis B surface 4.53 IU/L AR REF [...] healthcare workers refer to MMWR Jan/Vol. 62(No. 10);1-19. Reference Interval: anti-HBs 9.99 IU/L or less ....... Negative 10.00 IU/L or greater .... Positive Results greater than 1,000.00 IU/L are reported as gre ater than 1,000.00 IU/L. This assay should not be used for blood donor screenin g, associated re-entry protocols, or for screening Human Cell, Tissues and Cellular and Tissue-Based Products (HCT/P) . Performed by [facility], [address] [place] [address] [email or web address], Yao Swenson MD, Lab. Director Specimen Serum Performing Organization Address [facility] Phon e Number [facility] [address] [place] [address] [facility] [address] [place] [address] Hepatitis C antibody (03/18/2019 10:11 AM PLASTIC FINISHER) Pathologist Sig nature Hepatitis C Ab Non-reactive Non-reactive [facility] Specimen Blood Performing Organization Address [facility] Phon e Number [facility] DEPARTMENT OF PATHOLOGY AND [address] [place] [address] Hepatitis B core antibody total (03/18/2019 10:11 AM PLASTIC FINISHER) Pathologist Sig nature Hepatitis B core Non-reactive Non-reactive [facility] Specimen Blood Performing Organization Address [facility] Phon e Number [facility] DEPARTMENT OF PATHOLOGY AND [address] [place], [place] [address] [address] [address] Hepatitis B surface antibody (03/18/2019 10:11 AM PLASTIC FINISHER) Pathologist Sig nature Hepatitis B surface Non-reactive Non-reactive [facility] Specimen Blood Performing Organization Address [facility] Phon e Number [facility] DEPARTMENT OF PATHOLOGY AND [address] [place], [place] [address] [address] [address] IR Tunneled Dialysis Catheter Placement (03/14/2019 4:07 PM PLASTIC FINISHER) Specimen Narrative Performed At Tunneled Dialysis Catheter Placement [facility] Pre-Procedure Diagnosis: Chronic kidney disease Post-procedure Diagnosis:Chronic kidney disease [employer] Social Studies Tutor: Ramakrishna Araujo Court Of Appeals Judge: None Anesthesia/Sedation: Level of anesthesia: None (IV pain medic ation and lidocaine) Medications used: Fentanyl only, 1% Lido durga Radiation exposure: 11 mGy Estimate blood loss: <5 mL Blood adminis tered: None Complications: None Implants/Grafts: 14.5 Angolan 19 cm cuffe d tunneled dialysis catheter Specimen: None Procedure: Informed consent was obtained and the patient position ed supine in the fluoroscopy suite. A timeout was performed, followed b y preliminary ultrasound of the right internal jugular vein (see fin dings below). The right neck and chest were [...] dialysis catheter under moderate sedation. Procedure Note Hm Interface, Radiology Results Incoming - 03/14/2019 4:43 PM PLASTIC FINISHER Tunneled Dialysis Catheter Placement Pre-Procedure Diagnosis: Chronic kidney disease Post-procedure Diagnosis:Chronic kidney disease [employer] Social [employer] Tutor: Ramakrishna Araujo Court Of Appeals Judge: Dinesh Anesthesia/Sedation: Level of anesthesia: None (IV pain medic ation and lidocaine) Medications used: Fentanyl only, 1% Lido durga Radiation exposure: 11 mGy Estimate blood loss: <5 mL Blood adminis tered: None Complications: None Implants/Grafts: 14.5 Angolan 19 cm cuffe d tunneled dialysis catheter [...] catheter under moderate sedation. Performing Organization Address [facility] Phon e Number [address] [address] Phosphorus level (03/14/2019 12:00 AM PLASTIC FINISHER)Only the most recent of3 resultswithin the time period is included. Pathologist Sig [facility] Phosphorus 3.3 2.4 - 4.5 mg/dL [facility] Specimen Plasma specimen Performing Organization Address [facility] Phon e Number [facility] DEPARTMENT OF PATHOLOGY AND [address] [place] [address] [address] Magnesium level (03/14/2019 12:00 AM PLASTIC FINISHER)Only the most recent of7 resultswithin the time period is included. Pathologist Sig [facility] Magnesium 2.1 1.6 - 2.4 mg/dL [facility] Specimen Plasma specimen Performing Organization Address [facility] Phon e Number [facility] DEPARTMENT OF PATHOLOGY AND [address] [place] [address] [address] [address] Ionized calcium (03/14/2019 12:00 AM PLASTIC FINISHER) Pathologist Sig nature pH 7.65 [facility] Ionized calcium 0.86 (L) 1.11 - 1.32 [facility] mmol/L HOSPITAL Specimen Plasma specimen Performing Organization Address [facility] Phon e Number [facility] DEPARTMENT OF PATHOLOGY AND [address] [place] [address] [address] [address] CBC hemogram (03/13/2019 1:45 AM PLASTIC FINISHER)Only the most recent of2 resultswithin the time period is included. Pathologist Sig nature WBC 4.39 (L) 4.50 - 11.00 k/uL [facility] RBC 2.97 (L) 4.20 - 5.50 m/uL [facility] HGB 9.1 (L) 12.0 - 16.0 g/dL [facility] HCT 29.2 (L) 37.0 - 47.0 % [facility] MCV 98.3 82.0 - 100.0 fL [facility] MCH 30.6 27.0 - 34.0 pg [facility] MCHC 31.2 31.0 - 37.0 g/dL [facility] RDW - SD 59.0 (H) 37.0 - 55.0 fL [facility] MPV 11.2 8.8 - 13.2 fL [facility] Platelet count 141 (L) 150 - 400 k/uL [facility] Nucleated RBC 0.70 /100 WBC [facility] Specimen Blood Performing Organization Address City/[facility] Phon e Number [facility] DEPARTMENT OF PATHOLOGY AND [address] [place] [address] [address] [address] Arterial blood gas (03/12/2019 5:58 AM PLASTIC FINISHER)Only the most recent of4 results within the time period is included. Pathologist Sig nature pH, arterial 7.39 7.35 - 7.45 [facility] pCO2, arterial 40 35 - 45 mmHg [facility] pO2, arterial 73 (L) 80 - 90 mmHg [facility] Bicarbonate, 23.7 21.0 - 28.0 [facility] mmol/L HOSPITAL Base excess, -1 -2 - 2 mEq/L [facility] O2 saturation, 95 95 - 100 % [facility] Specimen Blood Performing Organization Address City/[facility] Phon e Number [facility] DEPARTMENT OF PATHOLOGY AND [address] [place] [address] [phone] [address] Ionized calcium, arterial (03/11/2019 1:34 PM PLASTIC FINISHER)Only the most recent of3 resultswithin the time period is included. Pathologist Sig nature Ionized calcium, 1.11 1.11 - 1.32 [facility] arterial mmol/L HOSPITAL Specimen Blood Performing Organization Address City/[facility] Phon e Number [facility] DEPARTMENT OF PATHOLOGY AND [address] [place] [address] Activated clotting time (03/11/2019 11:50 AM PLASTIC FINISHER)Only the most recent of3 resultswithin the time period is included. Activated clotting 121 96 - 152 sec [facility] Comment: HOSPITAL [employer] Tutor Name: Kati Stephen Device ID: [id number] Specimen Performing Organization Address [facility] Phon e Number [facility] DEPARTMENT OF PATHOLOGY AND [address] [place] [address] Sodium level, syringe (03/11/2019 11:14 AM PLASTIC FINISHER)Only the most recent of2 results within the time period is included. Pathologist Sig nature Sodium, syringe 135 135 - 148 mEq/L [facility] Specimen Blood Performing Organization Address [facility] Phon e Number [facility] DEPARTMENT OF PATHOLOGY AND [address] [place] [address] Potassium, syringe (03/11/2019 11:14 AM PLASTIC FINISHER)Only the most recent of2 results within the time period is included. Pathologist Sig nature Potassium, syringe 4.8 3.5 - 5.0 mEq/L [facility] Specimen Blood Performing Organization Address [facility] Phon e Number [facility] DEPARTMENT OF PATHOLOGY AND [address] [place] [address] Lactic acid, syringe (03/11/2019 11:14 AM PLASTIC FINISHER) Pathologist Sig nature Lactic acid, syringe 2.0 0.5 - 2.2 mmol/L [facility] Specimen Blood Performing Organization Address [facility] Phon e Number [facility] DEPARTMENT OF PATHOLOGY AND [address] [place] [address] Hemoglobin, syringe (03/11/2019 11:14 AM PLASTIC FINISHER)Only the most recent of2 results within the time period is included. Pathologist Sig nature Hemoglobin, syringe 9.7 (L) 12.0 - 16.0 g/dL [facility] Specimen Blood Performing Organization Address City/[facility]/ZIP Code Phon e Number [facility] DEPARTMENT OF PATHOLOGY AND [address] [place], [place] [address] [address] Glucose level, syringe (03/11/2019 11:14 AM PLASTIC FINISHER)Only the most recent of2 results within the time period is included. Pathologist Sig felipe Glucose, syringe 238 (H) 65 - 99 mg/dL [facility] Specimen Blood Performing Organization Address City/[facility] Phon e Number [facility] DEPARTMENT OF PATHOLOGY AND [address] [place] [address] [phone] [address] Transfuse RBC (03/11/2019 10:31 AM PLASTIC FINISHER)Only the most recent of2 resultswithin the time period is included.RASHEL (03/11/2019 9:06 AM PLASTIC FINISHER) Narrative Performed At Zohaib Lackey MD 03/11/2019 [...] Shelton MD Central line (03/11/2019 9:05 AM PLASTIC FINISHER) Narrative Performed At Zohaib Lackey MD 03/11/2019 9:06 AM Central line Performed by: Zohaib Lackey MD Authorized by: Cj Shelton MD Patient Location: [place] Staff: Anesthesiologist: Cj Shelton MD Resident/KITCHEN HELP HANDYMAN/AA: Zohaib Lackey MD Performed by: Resident/KITCHEN HELP HANDYMAN/AA Preprocedure:patient identified, IV checked, site and side [...] immediate complications Arterial line (03/11/2019 9:05 AM PLASTIC FINISHER) Narrative Performed At Zohaib Lackey MD 03/11/2019 9:05 AM Arterial line Performed by: Zohaib Lackey MD Authorized by: Cj Shelton MD Patient Location: OR Staff: Anesthesiologist: Cj Shelton MD Resident/KITCHEN HELP HANDYMAN/AA: Zohaib Lackey MD Performed by: Resident/KITCHEN HELP HANDYMAN/AA Pre-procedure: patient identified, IV ch ecked, site [...] no immediate complications Airway (03/11/2019 9:04 AM PLASTIC FINISHER) Narrative Performed At Zohaib Lackey MD 03/11/2019 [...] Arterial blood gas, corrected (03/11/2019 8:30 AM PLASTIC FINISHER) Pathologist Sig nature pH, arterial 7.44 7.35 - 7.45 [facility] pCO2, arterial 32 (L) 35 - 45 mmHg [facility] pO2, arterial 250 (H) 80 - 90 mmHg [facility] Temperature, Celsius 37.0 Degrees C [facility] O2 saturation, 100 95 - 100 % [facility] pH, arterial 7.44 [facility]OSPITAL pCO2, arterial 32 mmHg [facility]ITAL pO2, arterial [address] [facility] Base excess, arterial -2 -2 - 2 mEq/L [facility] Specimen Blood Performing Organization Address City/[facility] Phon e Number [facility] DEPARTMENT OF PATHOLOGY AND [address] [place] [address] [phone] [address] Prepare RBC (03/11/2019 7:59 AM PLASTIC FINISHER) Product name Red Blood Cells [place] [address], [facility] Unit number [id number] [facility] Product code [id number] [facility] Dispense status Transfused [facility] Blood expiration date [facility] Blood type code [address] [place] [address] Blood type A POSITIVE [facility] Compatibility Compatible [facility] Product name Red Blood Cells [address] Unit number [id number] [facility] Product code [id number] [facility] Dispense status Transfused [facility] Blood expiration date [facility] Blood type code [address] [place] [address] Blood type A POSITIVE [facility] Compatibility Compatible [facility] Specimen Performing Organization Address City/[facility] Phon e Number [facility] DEPARTMENT OF PATHOLOGY AND [address] [place] [address] [phone] [address] Thyroid stimulating hormone (03/10/2019 4:00 AM PLASTIC FINISHER)Only the most recent of2 resultswithin the time period is included. Pathologist Sig nature TSH 1.00 0.27 - 4.20 uIU/mL [facility] ITAL Specimen Plasma specimen Performing Organization Address City/[facility] Phon e Number [facility] DEPARTMENT OF PATHOLOGY AND [address] [place] [address] [phone] [address] T4, free (03/10/2019 4:00 AM PLASTIC FINISHER) Pathologist Sig nature T4, free 1.4 0.9 - 1.7 ng/dL [facility] Specimen Plasma specimen Performing Organization Address [facility] Phon e Number [facility] DEPARTMENT OF PATHOLOGY AND [address] [place] [address] [phone] [address] Hepatic function panel (03/10/2019 4:00 AM PLASTIC FINISHER) Albumin 2.7 (L) 3.5 - 5.0 g/dL [facility] Total bilirubin 0.4 0.0 - 1.2 [facility] mg/dL [facility] Bilirubin direct <0.2 0.0 - 0.3 [facility] mg/dL [facility] Alkaline phosphatase 57 35 - 104 U/L [facility] Protein 7.5 6.3 - 8.3 g/dL [facility] Comment: HOSPITAL Wxjjvfu7664.6-7.0 g/dL 1 bzog0743.4-7.6 g/dL 7 months-5smlq136.1-7.3 g/dL 1-2 wxgti493.6-7.5 g/dL >3 tansq007.0-8.0 g/dL 18-7763766.3-8.3 g/dL ALT 28 5 - 50 U/L [facility] AST 89 (H) 10 - 35 U/L [facility] Specimen Plasma specimen Performing Organization Address City/[facility] Phon e Number [facility] DEPARTMENT OF PATHOLOGY AND [address] [place] [address] [phone] [address] Lipid panel (03/10/2019 4:00 AM PLASTIC FINISHER) Cholesterol 178 <200 mg/dL [facility] Triglycerides 172 (H) <150 mg/dL [facility] HDL cholesterol 42 >40 mg/dL [facility] LDL cholesterol 103 (H)Comment: <100 mg/dL [place] Result obtained by [facility] direct [facility] measurement Lipid panel [facility] interpretation Comment: [facility] Total Cholesterol (mg/dL) HOSPIT AL <200 Desirable [...] Organization Address City/State/ZIP Code Phon e Number [facility] DEPARTMENT OF PATHOLOGY AND [address] [place], [place] [address] 0 GENOMIC MEDICINE [address] [address] HEMODIALYSIS CATHETER PLACEMENT (03/08/2019 10:42 PM PLASTIC FINISHER) Narrative Performed At Gail Evans MD 03/08/2019 10:44 P M Hemodialysis catheter placement Date/Time: 03/08/2019 10:42 PM Performed by: Gail Evans MD Authorized by: Dayne Patterson MD Consent: Consent obtained: Written Consent given by: Patient Risks discussed: Arterial puncture, incorrect bobby cement, infection, bleeding, nerve damage and pneumothorax Alternatives discussed: No treatmen t [place] protocol: Procedure explained and questions ans wered to patient or proxy's satisfaction: yes Relevant documents present and verifi ed: yes Test results available and properly l abeled: yes Imaging studies available: yes Required blood products, implants, de vices, and special equipment available: yes Site/side marked: yes Immediately prior to procedure, a ho elliott was called: yes Patient identity confirmed: Provide [...] immediate complications Smear review (03/07/2019 4:45 AM PLASTIC FINISHER) Platelet slide review Decreased (A) [facility] Anisocytosis Moderate [facility] Ovalocytes Moderate [facility] Specimen Performing Organization Address [facility] Phon e Number [facility] DEPARTMENT OF PATHOLOGY AND [address] [place] [phone] [place] [phone] B natriuretic peptide (03/07/2019 4:45 AM PLASTIC FINISHER)Only the most recent of4 results within the time period is included. Pathologist Sig nature BNP 961 (H) 0 - 100 pg/mL [facility] Specimen Blood Performing Organization Address [facility] Phon e Number [facility] DEPARTMENT OF PATHOLOGY AND [address] [place] [address] [phone] [address] Venous blood gas (03/07/2019 4:45 AM PLASTIC FINISHER) Pathologist Sig nature pH, venous 7.30 (L) 7.32 - 7.42 [facility] pCO2, venous 42 (L) 45 - 51 mmHg [facility] pO2, venous 39 25 - 40 mmHg [facility] Base excess, venous -5 (L) -2 - 2 meq/L [facility] O2 saturation, 70 40 - 70 % [facility] Bicarbonate, venous 20.2 (L) 21.0 - 28.0 [facility] mmol/L HOSPITAL Specimen Blood Performing Organization Address [facility] Phon e Number [facility] DEPARTMENT OF PATHOLOGY AND [address] [place], [place] [address] 0 [place] [phone] Urinalysis screen and microscopy, with reflex to culture (03/07/2019 1:00 AM PLASTIC FINISHER)Only the most recent of2 resultswithin the time period is included. Specimen site Catheterized [facility] Color, UA Yellow [facility] Appearance, UA Cloudy [facility] Specific gravity, UA 1.014 1.001 - 1.035 [facility] pH, UA 5.0 5.0 - 8.5 [facility] Protein, UA 2+ (A) Negative [facility] Glucose, UA 3+ (A) Negative [facility] Ketones, UA Negative Negative [facility] Bilirubin, UA Negative Negative [facility] Blood, UA Negative Negative [facility] Nitrite, UA Negative Negative [facility] Urobilinogen, UA <2.0 <2.0 [facility] Leukocyte esterase, Small (A) Negative [facility] Epithelial cells, UA 2 /HPF [facility] WBC, UA 8 (H) 0 - 4 /HPF [facility] RBC, UA 1 0 - 5 /HPF [facility] Bacteria, UA Few None seen [facility] Yeast, UA None seen [facility] Yeast with None seen [facility] pseudohyphae, HOSPITAL Amorphous crystals Few [facility] Specimen Urine Performing Organization Address City/State/[facility] Code Phon e Number [facility] DEPARTMENT OF PATHOLOGY AND [address] [place] [address] 0 [place] [address] Us carotid duplex (03/06/2019 3:45 PM PLASTIC FINISHER) Specimen Narrative Performed At [facility] Vascular U ltrasound Laboratory Carotid A rtery Duplex Report [address] [place] [address], [place] [address] For manufacturing quality manager purposes, the categorization of the degree of the stenosis of this exam is based on criteria described i n the IAC carotid stenosis grading white paper( www.intersocietal.org/Va scular) and Sruthi Sauceda., Jimmy Avila, et al. Carotid artery stenosis: adams-scale and Doppler US diagnosis-- Society of Radiologists in Ultrasound Consensus Conference. Radio logy. 2002; 229(2):340-6. Pat.Name: JULEE JEFFERSON.ID: [id number] .Date: 03/06/2019 Refer.MD: SANJAY KEBEDE MD Exam Time: 3:12:00 PM Study Type:C arotid Height: 65in Weight: 183lb BSA: 1.91 m2 Ag e: 1955,63Y Sex: FEMALE BP: 122/57 Sonogrphr: Ana Feliz, RDCS, RVT Pat. Stat.:Inpatient Room: [facility] A Tape Vo l: ED, [facility] - 4: 53790 Echo Radha nt ID:[id number] Order ID: [id number] Reason for Study:Carotid disease Procedures: Colorflow, Grayscale/2D, [...] Radiology Results In - 2019 8:08 AM [facility] Vascular Ultrasound Laboratory Carotid Artery Dupl ex Report [address] [place] [address] For manufacturing quality manager purposes, the vero gorization of the degree of the stenosis of this exam is based on criteria described in the IAC carotid stenosis grading white paper( www.intersocietal.org/Vascular) and Sruthi Sauceda., Jimmy Avila, et al. Carotid artery stenosis: adams-scale and Doppler US diagnosis--Society of Radiologists in Ultrasound Consensus Conference. Radiology. 2003 Nov; 229(2):340-6. Pat.Name: JULEE JEFFERSON Pat.I D: [id number] St.Date: 03/06/2019 Refer .MD: SANJAY KEBEDE MD Exam Time: 3:12:00 PM Study Type:Carotid Height: 65in Weigh t: 183lb BSA: 1.91 m2 Age: 7 1955,63Y Sex: FEMALE BP: 122/57 Sonogrphr: Ana Feliz RDCS, RVT Pat. Stat.:Inpatient Room: [address] Vol: ED, CPT - 4: 13176 Echo Event ID:[id number] Order ID: [id number] Reason for Study:Carotid disease Procedures: Colorflow, Grayscale/2D, [...] Organization Address City/State/ZIP Code Phon e Number [facility] [address] [place] [address] Echocardiogram complete w contrast and 3D if needed (03/06/2019 3:29 PM PLASTIC FINISHER) Specimen Narrative Performed At [facility] Echo cardiography Report [address] [place] [address] Pat.Name: JULEE JEFFERSON Pat.ID: [id number] .Date: 03/06/2019 Refer.MD: SANJAY KEBEDE MD Exam Time: 2:29:00 PM Study Type:R outine Echo Height: 65in Weight: 183lb BSA: 1.91 m2 Ag e: 1955,63Y Sex: FEMALE BP: 138/64 HR: 66 bpm Sonogrphr: Cheyenne Diez, AKIKO, RVT Pat. Stat.:Inpatient Room: [id number] Study Status:Final Echo Event ID:[id number] Order ID: [id number] Reason for Study:Arrhythmias - Sustained or nonsustained atrial fibrillation, SVT, or VT; Assess LV func tion prior to anticipated ACB History / Clinical:Diabetes, Hypertensio n, VA, Rheumatoid Arthritis Procedures: 2D Echo, Colorflow Doppler, [...] PA systolic pressure. MEASUREMENTS: 2D Parasternal Long [place] Ao An 1.9 cm LVPWd 1 cm [...] Radiology Results In - 2019 4:37 PM PLASTIC FINISHER Echocardiography Report [address] [facility], [place] [address] , [place] [address] Pat.Name: JLUEE JEFFERSON Pat.I D: [id number] .Date: 03/06/2019 Refer .MD: SANJAY KEBEDE MD Exam Time: 2:29:00 PM Study Type:Routine Echo Height: 65in Weigh t: 183lb BSA: 1.91 m2 Age: 7 1955,63Y Sex: FEMALE BP: 138/64 HR: 66 bpm Sonogrphr: Cheyenne Diez RDCS, RVT Pat. Stat.:Inpatient Room: [address] Study Status:Final Echo Event ID:[id number] Order ID: [id number] Reason for Study:Arrhythmias - Sustained or nonsustained atrial fibrillation, SVT, or VT; Assess LV func tion prior to anticipated ACB History / Clinical:Diabetes, Hypertensio n, VA, Rheumatoid Arthritis Procedures: 2D Echo, Colorflow Doppler, [...] PA systolic pressure. MEASUREMENTS: 2D Parasternal Long [place] Ao An 1.9 cm LVPW d 1 [...] PM Neil Santos M.D. Performing Organization Address City/State/ZIP Code Phon e Number [facility] [address] [place] [address] Gram stain (03/06/2019 12:19 PM PLASTIC FINISHER) Gram stain result Rare WBC's [place] [facility] Rare Gram positive rods HOSPITAL Comment: Specimen Information Specimen Source: Urine Specimen Site: Clean catch Specimen Urine Performing Organization Address City/[facility] Phon e Number [facility] DEPARTMENT OF PATHOLOGY AND [address] [place] [address] [place] [phone] Urine culture (03/06/2019 12:19 PM PLASTIC FINISHER) Urine culture Mixed demetrice 10-4 col/cc [facility] T isolate Comment: HOSPITAL Specimen Information Specimen Source: Urine Specimen Site: Clean catch Specimen Urine Performing Organization Address [facility] Phon e Number [facility] DEPARTMENT OF PATHOLOGY AND [address] [place] [address] Sodium level, urine, random (03/06/2019 10:55 AM PLASTIC FINISHER) Pathologist Sig nature Sodium, urine, random 32 mEq/L [facility] Specimen Urine Performing Organization Address [facility] Phon e Number [facility] DEPARTMENT OF PATHOLOGY AND [address] [place] [address] Creatinine level, urine, random (03/06/2019 10:55 AM PLASTIC FINISHER) Pathologist Sig nature Creatinine, urine, 130 mg/dL [facility] Specimen Urine Performing Organization Address [facility] Phon e Number [facility] DEPARTMENT OF PATHOLOGY AND [address] [place] [address] pharmacy laboratory technician procedure (03/05/2019 8:13 AM PLASTIC FINISHER) Specimen Narrative Performed At This result has an attachment that is no t available. WEAVER NEEDLE LOOM: PETER MARTINEZ None. PREOPERATIVE DIAGNOSES: 1. Acute [...] monitored by myself and the circulating nurse travis burns end-tidal CO2, oxygenation, blood pressure, heart rate, and respirati on. The right groin was then infused with 1% Xylocaine without epinephrine and the artery entered without difficulty using a standard 18-gauge [facility] needl e. A short 5-Angolan sheath was chosen for access. In sequential [...] stents from immediately after the first septal host/hostess head bridging the diagona l and approximately 2 [...] bypass to the LAD. Performing Organization Address City/State/ZIP Code Phon e Number [facility] [address] [place] [address] Anti Xa, unfractionated (03/05/2019 2:14 AM PLASTIC FINISHER)Only the most recent of3 resultswithin the time period is included. Anti Xa, 0.25 (L)Comment: 0.30 - 0.70 [place] unfractionated Therapeutic Range: U/mL [facility] 0.30 - 0.70 U/mL HOSPITAL Specimen Blood Performing Organization Address City/[facility] Phon e Number [facility] DEPARTMENT OF PATHOLOGY AND [address] [place], [place] [address] [address] Troponin (03/05/2019 12:40 AM PLASTIC FINISHER)Only the most recent of4 resultswithin the time period is included. Troponin 1.157 (H) 0.000 - 0.040 [facility] Comment: ng/mL HOSPITAL In patients suspected of [...] ng/mL Specimen Plasma specimen Performing Organization Address [facility] Phon e Number [facility] DEPARTMENT OF PATHOLOGY AND [address] [place] [address] [address] ECG ED Preliminary Interpretation - Not an Order (03/04/2019 9:17 AM PLASTIC FINISHER) Narrative Performed At Giovani Serrato MD 03/04/2019 3:51 PM ECG ED Preliminary Interpretation - Not an Order Performed by: Giovani Serrato MD Authorized by: Giovani Serrato MD ECG reviewed by ED Physician in the abse nce of a liquor blender: yes Interpretation: Interpretation: abnormal Rate: ECG rate: 77 ECG rate assessment: normal Rhythm: Rhythm: sinus rhythm QRS: QRS axis: Normal QRS intervals: Normal Conduction: Conduction: abnormal Abnormal conduction: complete RBBB ST segments: ST segments: Normal T waves: T waves: inverted Inverted: AVL and V1 CRITICAL CARE (03/04/2019 9:17 AM PLASTIC FINISHER) Narrative Performed At Giovani Serrato MD 03/04/2019 [...] and performing treatments and interventio ns after 01/26/2019 Insurance Payer Benefit Plan / Subscriber ID Effective Dates Phone Addre ss Type Group MEDICARE MEDICARE PART A [id number] 2012-Present [place], [place] Medicare AND B MEDICAID MEDICAID [id number] 2019-Present Med icaid Guarantor Name Account Type Relation to Date of Phone Billing Patient Address Julee Jefferson Personal/Family Self 1955 [address] ([address]) [place] [address] Advance Directives For more information, please contact: [phone] Type Date Recorded Patient Facility Administrator Explanati on Advance Directives, 01/26/2018 12:00 AM Living Will and Medical Power of Portal Developer Advance Directives, 11/20/2019 5:16 PM Living Will and Medical Power of Portal Developer Code Status Date Activated Date Inactivated Comments [...]
--- OUTSIDE RECORDS SUMMARY | 2020-01-27 13:05 | XMS REPORT | Continuity of Care Document ---
:1955 Author Organization [facility] t Address [address] [place] [address] Care Team Providers Name Role Phone Trenton Plaza MD. Primary Care Physician Bang Eisenberg RN Attending Clinician Caro RUCKER, E. Attending Clinician Familia FITZPATRICK Attending Clinician Jonny Siddiqi MDtamela Attending Clinician Db AGUILERA Attending Clinician Unavailable Merrick FITZPATRICK, Tavo. Attending Clinician Jasbir OJEDA Attending Clinician Mandy OJEDA, Tavo Attending Clinician Maria T GOMEZ Attending Clinician Unavailable Josy FITZPATRICK, Miguelangel. Attending Clinician Raciel Serrato MD Attending Clinician Deidre FITZPATRICK, Harlan Attending Clinician Carlos Peter MD Attending Clinician [phone] Meera Shelton MD Attending Clinician Ziyad FITZPATRICK Attending Clinician Preston GOMEZ Attending Clinician Unavailable Provider Attending Clinician Unavailable Francisco Kebede MD Attending Clinician FAMILIA Admitting Clinician Unavailable JOSY Admitting Clinician Unavailable DEIDRE Admitting Clinician Unavailable Payers Payer Name Policy Type Policy Effective Date Expiration Date Sour ce Number MEDICAREMEDICARE PART [id number] Donaovn rowdy Chowdhury AND 00:00:00 Druze [id number] 2012- [facility]MEDICA[place]xxxxx [id number] Darell dias [id number] 2019-Present 00:00:00 Met francisco costa Problems Condition Condition Condition Status Onset Resolution Last Treating Co mments Source Name Details Category Date Date Treatment Clinician Date ESRD (end ESRD (end Disease Active Overview: Kelly stage stage 9 Added Methodi renal renal 00:00: automatic st disease) disease) 00 ally from request for surgery [id number] Ischemic Ischemic Disease Active [place] diabetic diabetic 6-04 Method i maculopath maculopath 00:00: st y with y with 00 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 and y and macular macular edema edema associated associated with type with type 2 diabetes 2 diabetes mellitus mellitus Ischemic Ischemic Disease Active [place] cardiomyop cardiomyop 6-04 Il thodi athy athy 00:00: st 00 Obesity Obesity Disease Active Kelly (BMI (BMI 1-18 Methodi 30-39.9) 30-39.9) 00:00: st 00 Coronary Coronary Disease Active Overview: Donavon reno artery artery 1-13 Added Methodi disease disease 00:00: automatic st involving involving 00 ally [place] request heart with heart with for unstable unstable surgery angina angina [id number] pectoris pectoris Tremor Tremor Disease Active 2018-02 Kelly 0 Methodi 00:00: st 00 Seizure Seizure Disease Active Kelly 11-19 Methodi 00:00: st 00 Elevated Elevated Disease Active [place] troponin troponin 9 Method i 00:00: st 00 ASCVD ASCVD Disease Active Kelly (arteriosc (arteriosc 6-27 Me thodi lerotic lerotic 00:00: st cardiovasc cardiovasc 00 ular ular disease) disease) CAD CAD Disease Active Kelly (coronary (coronary 627 Meth ty artery artery 00:00: st disease) disease) 00 Atheroscle Atheroscle Disease Active 2017-02 [facility] [place] rosis of rosis of 207 Method i [place] 00:00: st coronary coronary 00 artery of artery of [place] heart with heart with unstable unstable angina angina pectoris pectoris NSTEMI NSTEMI Disease Active Kelly (non-ST (non-ST 11-17 Methodi elevated elevated 00:00: st myocardial myocardial 00 infarction infarction ) ) Controlled Controlled Disease Active H [facility] type 2 type 2 11-13 Methodi diabetes diabetes 00:00: st mellitus mellitus 00 with with diabetic diabetic nephropath nephropath y, without y, without long-term long-term current current use of use of insulin insulin Acute Acute Disease Active Kelly renal renal 11-13 Methodi failure failure 00:00: st superimpos superimpos 00 ed on ed on stage 3 stage 3 chronic chronic kidney kidney disease disease Troponin Troponin Disease Active [place] level level 10-29 Methodi elevated elevated 00:00: st 00 Chest pain Chest pain Disease Active [place] 10-28 Methodi 00:00: st 00 Closed Closed Disease Active Kelly intertroch intertroch 9-08 Me thodi anteric anteric 00:00: st fracture fracture 00 of left of left femur femur Closed Closed Disease Active Kelly fracture fracture 908 Method i of left of left 00:00: st wrist wrist 00 Hip Hip Disease Active Kelly fracture fracture 908 Method i 00:00: st 00 Vitamin D Vitamin D Disease Active Darell ston deficiency deficiency 9-08 Me thodi 00:00: st 00 Anemia of Anemia of Disease Active Darell ston renal renal 406 Methodi disease disease 00:00: st 00 Anemia, Anemia, Disease Active 2015-02 Kelly macrocytic macrocytic 0-08 Me thodi 00:00: st 00 Osteoporos Osteoporos Disease Active Overview : Kelly is with is with 11-03 Osteoporo Metho di current current 00:00: sis s/p st pathologic pathologic 00 RECLAST al al fracture fracture BMD OP - 0.569 femoral neck (-2.5), right hip .583 (-2.9), L1-L4 spine 0.800 (-2.2) Rheumatoid Rheumatoid Disease Active Overview : Kelly arthritis arthritis - Rheumatoi M ethodi involving involving 00:00: d st multiple multiple 00 arthritis sites with sites with with high positive positive titer high titer high titer CCP>250, 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 Responded to steroid and partially to MTX, in remission with addition of xeljanz, Herpes Herpes Disease Active Last Kelly gingivosto gingivosto 10-04 Assessmen Methodi matitis in [...] x 1 Hypothyroi Hypothyroi Disease Active [place] dism dism 10-04 Methodi 00:00: st 00 Hypertensi Hypertensi Disease Active [place] on on 10-04 Methodi 00:00: st 00 [...] ibis for days Penicill Propensi Active Anaphylaxis 2015- H o[place] ins ty to 8-15 Methodi adverse 00:00: st reaction 00 s to drug Family History Family Member Diagnosis Comments Start Date Stop Date Source Natural father Alzheimer's disease [facility] [place] Druze Natural father Dementia [facility]odist Natural mother Dementia [facility] Natural mother Diabetes [facility] Natural mother Other [facility]od[facility] Natural sister Diabetes [facility] Social History Social Habit Start Date Stop Date Quantity Comments Source Sex Assigned At [facility] ethodist Exposure to Not sure Kelly Metho dist SARS-CoV-2 (event) Tobacco use and 2019-11-26 2019-11-26 Never used [facility] ethodist exposure 00:00:00 00:00:00 Alcohol intake 2019-11-26 2019-11-26 Ex-drinker [facility] thodist 00:00:00 00:00:00 (finding) Tobacco Comment 2019-11-20 2019-11-20 only smoked for [place] Druze 00:00:00 00:00:00 1 year. Smoking Status Start Date Stop Date Source Former smoker 2019-11-26 00:00:00 2019-11-26 00:00:00 Kelly Druze Medications Ordered Filled Start Stop Current Ordering Indication Dosage Frequency Signature Comments Components Source Medication Medication Date Date Medication? Clinician (SIG) Name Name aspirin 2019-02 Yes 81mg QD Take 81 mg [place] (ECOTRIN) 03-24 by mouth Method i 81 MG 09:38: daily. st enteric 51 coated tablet lidocaine-p 2019-02- Yes Apply [place] rilocaine 03-24 topically Meth ty (EMLA) 00:00: 23:[address] 2.5-2.5 % 00 :00 for mild cream pain. Apply to fistula site 30-45 minutes prior to dialysis treatment. cyanocobala 2019-02 Yes 1000ug QD Take 1,000 [...] st tablet 05 times a day. calcitriol 2020 Yes .5ug QD Take 0.5 D[address] [...] st tablet 05 times a day. LORAZepam 2020 Yes .5mg Q6H Take 0.5 [place] [...] 05 (two) tablet times a day. insulin 2019- Yes 24U QD Inject 24 [place] GLARGINE 1-04 Units Methodi (LANTUS) 13:30: under the st 100 unit/mL 05 skin injection daily. (vial) nystatin 2019-02 Yes [id number] Q.25D Take [place] (MYCOSTATIN 1-04 500,000 [...] as needed for moderate pain .acute pain. traMADoL 2019-02- No acute pain 50mg Q6H [...] st 54 :00 times a day. insulin 2020- No 30U QD Inject 30 [place] detemir 11-19-30 Units Methodi U-100 17:39: 00:[address] (LEVEMIR) 43 :00 skin 100 unit/mL daily. injection traMADol 2019- No 50mg Q.[id number] Take 50 mg [place] (ULTRAM) 50 6-05 06-05 [id number] by mouth 3 Methodi mg tablet 11:50: 00:00 3D (three) st 19 :00 times a day as needed for moderate pain. Not taking minocycline 2020- No 100mg Q.5D Take 1 [place] (DYNACIN) 6-05 06-10 tablet Methodi 100 MG 00:00: 23:59 ([address] tablet 00 :00 total) by mouth 2 (two) times a day for 5 days. traMADoL 2019-0 2020- No acute pain 25mg Q8H Take 0.5 [place] (Ultram) 50 6-05 06-08 tablets Meth ty mg tablet 00:00: 23:59 ([address] 00 :00 total) by mouth every 8 (eight) hours as needed for moderate pain for up to 3 days .acute pain. docusate 2019-0 2020- No 100mg Q.5D Take 100 D[place] ston sodium 6 06-04 mg by Methodi (COLACE) 07:00: 00:[address] 100 MG 29 :00 (two) capsule times a day. aspirin 325 2019- 2020- No 325mg QD Take 1 [place] MG tablet 03-20 tablet Methodi 00:00: 23:59 ([address] 00 :00 total) by mouth daily for 30 days. clopidogreL 2019-0 2020- No 75mg QD Take 1 D[place] st[place] (PLAVIX) 75 03-20 tablet (75 M ethodi mg tablet 00:00: 23:59 mg total) st 00 :00 by mouth daily for 30 days. cholecalcif 2019-0 2020- No 2000U QD Take 2 [place], 03-20 tablets Methodi vitamin D3, 00:00: 23:59 (2,000 st (VITAMIN 00 :00 Units D3) 1,000 total) by unit tablet mouth daily for 30 days. fluconazole 2019-0 2020- No 200mg QD Take 1 [place] (DIFLUCAN) 03-20 tablet Method i 200 MG 00:00: 23:59 ([address] tablet 00 :00 total) by mouth daily for 2 days. furosemide 2019-0 2020- No 10mg QD Take 10 mg [place] (LASIX) 20 03-19 by mouth Meth ty mg tablet 18:20: 00:[address] 04 :00 aspirin 2019-0 2020- No 81mg QD Take 81 mg Darell ston (ECOTRIN) 03-19 by mouth Metho di 81 MG 18:20: 00:[address] enteric 04 :00 coated tablet cholecalcif 2019-0 2020- No 5000U QD Take 5,000 [place], 03-19 Units by Methodi vitamin D3, 18:20: 00:[address] (VITAMIN 04 :00 daily. D3) 5,000 unit capsule glipiZIDE 2019- No 10mg QD Take 10 mg [place] (GLUCOTROL) 03-19 by mouth Met hodi 10 MG 18:20: 00:[address] tablet 04 :00 before breakfast. pen needle, Yes Inject [place] diabetic 03-19 daily Methodi (PEN 00:00: st NEEDLE) 31 00 gauge x 5/16" needle linaGLIPtin 2019- No 5mg QD Take 1 D[place]ll ston (TRADJENTA) 03-19 09-30 tablet (5 Me thodi 5 mg tablet 00:00: 00:00 mg total) st 00 :00 by mouth daily with breakfast. insulin 2019- No 24U QD Inject 24 [place] GLARGINE 03-19 06-04 Units Methodi (LANTUS 00:00: 00:[address] SOLOSTAR 00 :00 skin U-100 daily. INSULIN) 100 unit/mL injection (pen) atorvastati 2019- No 40mg QD Take 1 Darell ston n (LIPITOR) 03-19 tablet (40 M ethodi 40 MG 00:00: 23:59 mg total) st tablet 00 :00 by mouth nightly for 30 days. metoprolol 2019- No 12.5mg Q.5D Take 0.5 [place] tartrate [...] on for up to 30 days. nystatin 2019- 2020- No 5mL Q.25D Take 5 mL [place] (MYCOSTATIN 03-19 by mouth 4 M ethodi ) 100,000 00:00: 23:59 (four) st unit/mL 00 :00 times a suspension day for 3 days. Swish in mouth sodium 2020-0 2020- No 325mg Q.5D Take 325 [place] bicarbonate 03-04 mg by Method i 650 mg 11:20: 00:[address] tablet 16 :00 (two) times a day. lisinopril No 20mg 20 mg [place] (PRINIVIL,Z 03-04 daily. Metho di ESTRIL) 5 11:18: 00:[address] MG tablet 16 :00 hydrALAZINE 2019- No 25mg Q.[id number] Take 25 mg [place] (APRESOLINE 03-04 [id number] by mouth 3 Methodi ) 50 MG [...] :00 daily. D3) 1,000 unit tablet clopidogrel 2017-02- No 75mg QD Take 1 D[place]ll ston (PLAVIX) 75 03-31 tablet (75 M ethodi mg tablet 00:00: 23:59 mg total) st 00 :00 by mouth daily. atorvastati 2017-02- No 20mg QD Take 1 Darell ston [...] 2.5mg QD Take 2.5 [place] (GLUCOTROL) 03-20 mg by Method i 5 MG tablet 00:00: 00:[address] 00 :00 daily with breakfast. XELJANZ 5 2017-02 Yes 5mg QD Take 5 mg D[place] ston mg tablet 1-05 by mouth Method i 00:00: daily. st 00 lancets 2019- No PRN Cesar (freestyle) 11-15 Methodi 28 gauge 00:00: 00:00 st misc 00 :00 pen needle, 2019- No Type 2 Use 1 [place] diabetic 11-03 diabetes, needle Met hodi (BD 00:00: 00:[address] ULTRA-FINE 00 :00 d, with LYNNE PEN retinopathy NEEDLES) 32 (HCC) gauge x 5/32" needle exenatide 2019- Acute 2mg Q1W Inject 2 [place] microsphere 10-04 cystitis mg under Methodi s 00:00: 00:[address] (BYDUREON) 00 :00 hematuria every 7 2 mg/0.65 days for mL pen 90 days. injector Vital Signs Vital Name Observation Time Observation Value Comments Source Systolic blood 2020-01-22 09:38:00 140 mm[Hg] Timoteo n Druze pressure Diastolic blood 2020-01-22 09:38:00 73 mm[Hg] Kevin baer Druze pressure Heart rate 2020-01-22 09:38:00 64 /min Cesar Harris Body temperature 2020-01-22 09:38:00 36.44 Enid Nona Harris Body height 2020-01-22 09:38:00 165.1 cm Cesar Harris Body weight 2020-01-22 09:38:00 83.008 kg Cesar Harris BMI 2020-01-22 09:38:00 30.45 kg/m2 Cesar Harris Oxygen saturation in 2020-01-22 09:38:00 94 /min Cesar Harris Arterial blood by Pulse oximetry Respiratory rate 2019-11-25 16:30:00 20 /min Nona Harris Procedures Procedure Date / Time Performing Clinician Source Performed US DUPLEX HEMODIALYSIS AVG 2019-12-25 13:45:27 Craig Barbosa AVF ACCESS POC GLUCOSE 2019-11-25 15:36:00 Craig Barbosa Meth odist HI AN PERIPHERAL BLOCK 2019-11-25 12:13:48 Kevin Sin PROCEDURE FOR PAIN Shanta J. TYPE AND SCREEN 2019-11-25 10:00:00 Craig Barbosa COMPREHENSIVE METABOLIC 2019-11-25 10:00:00 Craig Barbosa PANEL PROTHROMBIN TIME WITH INR 2019-11-25 10:00:00 Craig Barbosa PARTIAL THROMBOPLASTIN 2019-11-25 10:00:00 Craig Barbosa on Druze TIME (PTT) ESTIMATED GFR 2019-11-25 10:00:00 Craig Barbosa odist POC GLUCOSE 2019-11-25 10:00:00 Craig Barbosa XR CHEST 2 VW 2019-11-20 18:33:04 Cesar Sin COVID-19 QUALITATIVE PCR 2019-11-20 17:21:00 Craig Barbosa HC COMPLETE BLD COUNT 2019-11-20 17:21:00 Craig Barbosa W/AUTO DIFF TYPE AND SCREEN 2019-11-20 17:21:00 Craig Barbosa HEMOGLOBIN A1C 2019-11-20 17:21:00 Cesar Sin ECG PRE/POST OP 2019-11-20 16:57:52 Cesar Sin US VEIN MAPPING UPPER 2019-11-20 15:50:00 Craig Barbosa EXTREMITY BILATERAL POC GLUCOSE 2019-07-26 08:10:00 Bruno Nichols Meth odist POC GLUCOSE 2019-07-26 06:15:00 Bruno Nichols Meth odist POC GLUCOSE 2019-07-25 17:37:00 Bruno Nichols HEPATITIS B SURFACE 2019-07-25 12:15:00 Stef Ace ANTIGEN XR CHEST 1 VW PORTABLE 2019-07-25 10:38:41 Bruno Nichols on Druze ECG 12-LEAD 2019-07-25 10:32:42 Bruno Nichols Meth odist POC GLUCOSE 2019-07-25 10:07:00 Bruno Nichols odist HEMODIALYSIS 2019-07-25 09:44:48 Stef Ace EP AICD IMPLANT SINGLE 2019-07-25 09:43:40 Bruno Nichols on Druze DUAL BI VENT ESTIMATED GFR 2019-07-25 07:14:00 Bruno Nichols Meth odist POC PANEL 2019-07-25 07:14:00 Bruno Nichols Meth odist ECG PRE/POST OP 2019-07-25 06:28:24 Bruno Nichols Meth odist POC GLUCOSE 2019-07-25 06:14:00 Bruno Nichols Meth odist XR CHEST 2 VW 2019-03-19 09:57:07 Rosa Jiang Met hodist POC GLUCOSE 2019-03-19 08:25:00 Rosa Jiang Met hodist CBC WITH PLATELET AND 2019-03-19 05:45:00 Rosa Jiang on Druze DIFFERENTIAL MANUAL DIFFERENTIAL 2019-03-19 05:45:00 Rosa Jiangist BASIC METABOLIC PANEL 2019-03-19 05:37:00 Rosa Jiang on Druze ESTIMATED GFR 2019-03-19 05:37:00 Rosa Jiang Met hodist POC GLUCOSE 2019-03-18 21:08:00 Rosa Jiang Met hodist POC GLUCOSE 2019-03-18 17:05:00 Rosa Jiang Met hodist POC GLUCOSE 2019-03-18 13:33:00 Rosa Jiang Met hodist HEPATITIS B CORE ANTIBODY 2019-03-18 10:11:00 Gerhard Smith Druze TOTAL HEPATITIS B SURFACE 2019-03-18 10:11:00 Gerhard Smith Druze ANTIBODY HEPATITIS B SURFACE 2019-03-18 10:11:00 Gerhard Smith Druze ANTIGEN HEPATITIS C ANTIBODY 2019-03-18 10:11:00 Gerhard Smith Druze POC GLUCOSE 2019-03-18 09:53:00 Rosa Jiang Met hodist CBC WITH PLATELET AND 2019-03-18 08:30:00 Rosa Jiang on Druze DIFFERENTIAL BASIC METABOLIC PANEL 2019-03-18 08:30:00 Rosa Jiang on Druze ESTIMATED GFR 2019-03-18 08:30:00 Rosa Jiang Met hodist MANUAL DIFFERENTIAL 2019-03-18 08:30:00 Rosa Jiang Druze POC GLUCOSE 2019-03-18 07:54:00 Rosa Jiang Met hodist POC GLUCOSE 2019-03-17 21:15:00 Rosa Jiang Met hodist HEMODIALYSIS 2019-03-17 18:04:30 Gerhard Smith [...] Met hodist POC GLUCOSE 2019-03-16 17:43:00 Rosa Jiang Met hodist POC GLUCOSE 2019-03-16 12:20:00 Rosa Jiang Met hodist POC GLUCOSE 2019-03-16 07:39:00 Rosa Jiang Met hodist HC COMPLETE BLD COUNT 2019-03-16 05:00:00 Lalitha Dalton Druze W/AUTO DIFF POC GLUCOSE 2019-03-15 19:51:00 Rosa [...] COMPLETE BLD COUNT 2019-03-15 05:00:00 Lalitha Dalton W/AUTO DIFF POC GLUCOSE 2019-03-14 20:17:00 Rosa Jiang Met hodist POC GLUCOSE 2019-03-14 16:31:00 Rosa Jiang Met hodist IR TUNNELED DIALYSIS 2019-03-14 16:07:30 Gerhard Smith Druze CATHETER PLACEMENT POC GLUCOSE 2019-03-14 14:31:00 Rosa [...] 1 VW PORTABLE 2019-03-13 06:09:43 Dana Blackwell Druze POC GLUCOSE 2019-03-13 04:24:00 Rosa Jiang Met hodist ECG 12-LEAD 2019-03-13 04:16:07 Lalitha Dalton ethodist CBC HEMOGRAM 2019-03-13 01:45:00 Dana Blackwell ethodist BASIC METABOLIC PANEL 2019-03-13 01:45:00 LatiffDana Darell canon Druze MAGNESIUM LEVEL 2019-03-13 01:45:00 LatiffDana ethodist ESTIMATED GFR 2019-03-13 01:45:00 LatiffDana ethodist POC GLUCOSE 2019-03-12 20:02:00 Rosa Jiang Met hodist HEMODIALYSIS 2019-03-12 19:11:45 Lalitha Dalton ethodist POC GLUCOSE 2019-03-12 17:09:00 Rosa Jiang Met hodist POC GLUCOSE 2019-03-12 11:24:00 Rosa Jiang Met hodist XR CHEST 1 VW PORTABLE 2019-03-12 09:44:00 Lalitha Dalton Druze POC GLUCOSE 2019-03-12 07:13:00 Rosa Jiang Met hodist XR CHEST 1 VW PORTABLE 2019-03-12 06:47:03 RosalvaMarywoody Raphael [place] Druze POC GLUCOSE 2019-03-12 06:03:00 Rosa Jiang Met hodist ARTERIAL BLOOD GAS 2019-03-12 05:58:00 SharifaDana ríos Nonato n Druze POC GLUCOSE 2019-03-12 04:18:00 Rosa Jiang Met hodist ECG 12-LEAD 2019-03-12 03:39:09 Lalitha Dalton ethodist POC GLUCOSE 2019-03-12 02:11:00 Rosa Jiang Met hodist CBC HEMOGRAM 2019-03-12 00:55:00 Dana Blackwell ethodist BASIC METABOLIC PANEL 2019-03-12 00:55:00 LatDana ríos Darell canon Druze MAGNESIUM LEVEL 2019-03-12 00:55:00 LatiffDana ethodist ESTIMATED GFR 2019-03-12 00:55:00 Dana Blackwell ethodist POC GLUCOSE 2019-03-12 00:04:00 Rosa Jiang Met hodist POC GLUCOSE 2019-03-11 23:09:00 Rosa Jiang Met hodist POC GLUCOSE 2019-03-11 22:11:00 Rosa Jiang Met hodist POC GLUCOSE 2019-03-11 21:42:00 Rosa Jiang Met hodist POC GLUCOSE 2019-03-11 20:51:00 Rosa Jiang Met hodist POC GLUCOSE 2019-03-11 18:09:00 Rosa Jiang Met hodist POC GLUCOSE 2019-03-11 17:13:00 Rosa Jiang Met hodist HEMODIALYSIS 2019-03-11 16:49:45 Gerhard Smith Meth odist POC GLUCOSE 2019-03-11 16:40:00 Rosa Jiang Met hodist ECG 12-LEAD 2019-03-11 16:10:32 Jagdish Magallanes Il thodist POC GLUCOSE 2019-03-11 15:25:00 Rosa Jiang Met hodist ARTERIAL BLOOD GAS 2019-03-11 15:07:00 Vlad Andrade Druze POC GLUCOSE 2019-03-11 14:18:00 Rosa Jiang Met hodist XR CHEST 1 VW PORTABLE 2019-03-11 14:17:39 Jagdish Magallanes BASIC METABOLIC PANEL 2019-03-11 13:34:00 Jagdish Magallanes HC COMPLETE BLD COUNT 2019-03-11 13:34:00 Jagdish Magallanes W/AUTO DIFF MAGNESIUM LEVEL 2019-03-11 13:34:00 Jagdish Magallanes Il thodist PHOSPHORUS LEVEL 2019-03-11 13:34:00 Jagdish Magallanes ethodist PROTHROMBIN TIME WITH INR 2019-03-11 13:34:00 Jagdish Magallanes PARTIAL THROMBOPLASTIN 2019-03-11 13:34:00 Jagdish Magallanes TIME (PTT) ARTERIAL BLOOD GAS 2019-03-11 13:34:00 Jagdish Magallanes ESTIMATED GFR 2019-03-11 13:34:00 Jagdish Magallanes Me thodist IONIZED CALCIUM, ARTERIAL 2019-03-11 13:34:00 Sona Jagdish Harris POC GLUCOSE 2019-03-11 13:27:00 Rosa Jiang hodist CONSULT CARDIAC REHAB 2019-03-11 13:14:32 Lalitha Dalton PHASE 1 ACTIVATED CLOTTING TIME 2019-03-11 11:50:00 Rosa Jiang ARTERIAL BLOOD GAS 2019-03-11 11:14:00 Rosa Jiang POTASSIUM, SYRINGE 2019-03-11 11:14:00 Rosa Jiang SODIUM LEVEL, SYRINGE 2019-03-11 11:14:00 Rosa Jiang Druze HEMOGLOBIN, SYRINGE 2019-03-11 11:14:00 Rosa Jiang IONIZED CALCIUM, ARTERIAL 2019-03-11 11:14:00 Rosa Jiang LACTIC ACID, SYRINGE 2019-03-11 11:14:00 Rosa Jiang GLUCOSE LEVEL, SYRINGE 2019-03-11 11:14:00 Rosa Jiang ACTIVATED CLOTTING TIME 2019-03-11 10:48:00 Rosa Jinag TRANSFUSE RED BLOOD CELLS 2019-03-11 10:31:02 Zohaib Lackey Druze TRANSFUSE RED BLOOD CELLS 2019-03-11 10:10:48 Zohaib Lackey ANESTHESIA RASHEL 2019-03-11 09:06:46 Zohaib Lackey Meth odist CENTRAL LINE 2019-03-11 09:05:48 Zohaib Lackey Meth odist ARTERIAL LINE 2019-03-11 09:05:00 Zohaib Lackey Meth odist ANESTHESIA INTUBATION 2019-03-11 09:04:16 Zohaib Lackey Druze GLUCOSE LEVEL, SYRINGE 2019-03-11 08:30:00 Rosa Jiang IONIZED CALCIUM, ARTERIAL 2019-03-11 08:30:00 Rosa Jiang Druze HEMOGLOBIN, SYRINGE 2019-03-11 08:30:00 Rosa Jiang Druze SODIUM LEVEL, SYRINGE 2019-03-11 08:30:00 Rosa Jiang on Druze POTASSIUM, SYRINGE 2019-03-11 08:30:00 Rosa Jiang Druze ARTERIAL BLOOD GAS, 2019-03-11 08:30:00 Rosa Jiang Druze CORRECTED ACTIVATED CLOTTING TIME 2019-03-11 08:30:00 Rosa Jiang Druze PREPARE RBC 2019-03-11 07:59:00 Rosa Jiang Met hodist BASIC METABOLIC PANEL 2019-03-11 05:30:00 Rosa Jiang on Druze ESTIMATED GFR 2019-03-11 05:30:00 Rosa Jiang Met hodist POC GLUCOSE 2019-03-11 05:00:00 Rosa Jiang Met hodist POC GLUCOSE 2019-03-10 21:15:00 Deidre, Rosa Guerrero Met hodist HEMODIALYSIS 2019-03-10 18:52:40 Gerhard Smith Meth odist POC GLUCOSE 2019-03-10 16:53:00 Deidre, Rosa Guerrero Met hodist POC GLUCOSE 2019-03-10 13:03:00 Deidre, Rosa Guerrero Met hodist POC GLUCOSE 2019-03-10 11:29:00 Rosa Jiang Met hodist POC GLUCOSE 2019-03-10 07:53:00 Deidre, Rosa Guerrero Met hodist HC COMPLETE BLD COUNT 2019-03-10 06:30:00 Rosa Jiang on Druze W/AUTO DIFF BASIC METABOLIC PANEL 2019-03-10 04:00:00 Rosa Jiang on Druze LIPID PANEL 2019-03-10 04:00:00 SoteroadSguarda Cesar Il thodist HEPATIC FUNCTION PANEL 2019-03-10 04:00:00 Palad, Luzviminda Darell dias Druze THYROID STIMULATING 2019-03-10 04:00:00 Familia Magallonzvibrandon Mahmood n Druze HORMONE T4, FREE 2019-03-10 04:00:00 Alexa Magallon Il thodist ESTIMATED GFR 2019-03-10 04:00:00 Rosa Jiang Met hodist POC GLUCOSE 2019-03-09 21:22:00 Rosa Jiang Met hodist POC GLUCOSE 2019-03-09 16:40:00 Rosa Jiang Met hodist HEPATITIS B SURFACE 2019-03-09 13:45:00 Rosa Jiang Druze ANTIGEN POC GLUCOSE 2019-03-09 12:44:00 Rosa Jiang Met hodist POC GLUCOSE 2019-03-09 08:11:00 Rosa Jiang Met hodist BASIC METABOLIC PANEL 2019-03-09 05:25:00 Rosa Jiang on Druze MAGNESIUM LEVEL 2019-03-09 05:25:00 Rosa Jiang Met hodist ESTIMATED GFR 2019-03-09 05:25:00 Rosa Jiang Met hodist HC COMPLETE BLD COUNT 2019-03-09 05:20:00 Rosa Jiang on Druze W/AUTO DIFF POC GLUCOSE 2019-03-08 23:06:00 Rosa Jiang Met hodist HEMODIALYSIS CATHETER 2019-03-08 22:42:20 Gail Evans n Druze PLACEMENT POC GLUCOSE 2019-03-08 21:32:00 Rosa Jiang [...] BLD COUNT 2019-03-08 05:00:00 Rosa Jiang on Druze W/AUTO DIFF BASIC METABOLIC PANEL 2019-03-08 05:00:00 Rosa Jiang on Druze ESTIMATED GFR 2019-03-08 05:00:00 Rosa Jiang Met hodist POC GLUCOSE 2019-03-07 21:15:00 Rosa Jiang Met hodist POC GLUCOSE 2019-03-07 17:57:00 Rosa Jiang Met hodist POC GLUCOSE 2019-03-07 11:23:00 Rosa Jiang Met hodist POC GLUCOSE 2019-03-07 07:58:00 Rosa Jiang Met hodist HC COMPLETE BLD COUNT 2019-03-07 07:40:00 Rosa Jiang on Druze W/AUTO DIFF BASIC METABOLIC PANEL 2019-03-07 07:40:00 Rosa Jiang on Druze TYPE AND SCREEN 2019-03-07 07:40:00 Rosa Jiang Met hodist ESTIMATED GFR 2019-03-07 07:40:00 Rosa Jiang Met hodist POC GLUCOSE 2019-03-07 04:53:00 Rosa Jiang Met hodist VENOUS BLOOD GAS 2019-03-07 04:45:00 Myron Waterman Met hodist BASIC METABOLIC PANEL 2019-03-07 04:45:00 Rosa Jiang on Druze HC COMPLETE BLD COUNT 2019-03-07 04:45:00 Rosa Jiang on Druze W/AUTO DIFF B NATRIURETIC PEPTIDE 2019-03-07 04:45:00 Rosa Jiang on [facility] ESTIMATED GFR 2019-03-07 04:45:00 Rosa Jiang Met [facility] SMEAR REVIEW 2019-03-07 04:45:00 Rosa Jiang Met [facility] URINALYSIS SCREEN AND 2019-03-07 01:00:00 Rosa Jiang on [facility] MICROSCOPY, WITH REFLEX TO CULTURE POC GLUCOSE 2019-03-06 20:59:00 Rosa Jiang Met [facility] POC GLUCOSE 2019-03-06 16:45:00 Rosa Jiang Met [facility]odist US CAROTID DUPLEX 2019-03-06 15:45:00 Sanjay Kebede Druze BILATERAL TTE COMPLETE, WO CONTRAST, 2019-03-06 15:29:00 Sanjay Kebede Druze W DOPPLER ([id number]) HEMOGLOBIN A1C 2019-03-06 15:05:00 Rosa Jiang Met hodist GRAM STAIN 2019-03-06 12:19:00 Rosa Jiang Met [facility]od[facility] URINE CULTURE 2019-03-06 12:19:00 Rosa Jiang Met [facility]od[facility] POC GLUCOSE 2019-03-06 12:05:00 Rosa Jiang Met [facility] URINALYSIS SCREEN AND 2019-03-06 10:55:00 Myron Waterman n Druze MICROSCOPY, WITH REFLEX TO CULTURE SODIUM LEVEL, URINE, 2019-03-06 10:55:00 Myron Waterman Druze RANDOM CREATININE LEVEL, URINE, 2019-03-06 10:55:00 Myron Waterman Druze RANDOM POC GLUCOSE 2019-03-06 08:50:00 Rosa Jiang Met hodist BASIC METABOLIC PANEL 2019-03-06 03:55:00 Rosa Jiang on Druze B NATRIURETIC PEPTIDE 2019-03-06 03:55:00 Rosa Jiang on Druze HC COMPLETE BLD COUNT 2019-03-06 03:55:00 Rosa Jiang on Druze W/AUTO DIFF MAGNESIUM LEVEL 2019-03-06 03:55:00 Rosa [...] CV SELECTIVE CORONARY 2019-03-05 08:13:23 Sanjay Kebede Druze ANGIOGRAPHY CV LEFT HEART CATH 2019-03-05 08:13:23 Sanjay Kebede n Druze HC COMPLETE BLD COUNT 2019-03-05 03:20:00 Rosa Jiang on Druze W/AUTO DIFF BASIC METABOLIC PANEL 2019-03-05 03:20:00 Rosa Jiang on Druze B NATRIURETIC PEPTIDE 2019-03-05 03:20:00 Rosa Jiang on Druze MAGNESIUM LEVEL 2019-03-05 03:20:00 Rosa Jiang Met [facility]od[facility] THYROID STIMULATING 2019-03-05 03:20:00 Rosa Jiang Druze HORMONE ESTIMATED GFR 2019-03-05 03:20:00 Rosa Jiang Met [facility]od[facility] ANTI XA, UNFRACTIONATED 2019-03-05 02:14:00 Rojelio, Giovani Raphael ust[place] Druze TROPONIN 2019-03-05 00:40:00 Rojelio, Giovani Guerrero Me thodist ECG 12-LEAD 2019-03-05 00:35:35 Rojelio, Giovani Guerrero Me thodist ANTI XA, UNFRACTIONATED 2019-03-04 19:48:00 Rojelio, Giovani reno Druze TROPONIN 2019-03-04 15:29:00 Rojelio, Giovani Guerrero Me [facility]od[facility] TROPONIN 2019-03-04 12:31:00 Rojelio, Giovani Guerrero Me [facility]odist XR CHEST 1 VW PORTABLE 2019-03-04 09:40:08 Rojelio, Giovani dias Druze BASIC METABOLIC PANEL 2019-03-04 09:35:00 Rojelio, Giovani craig Druze ESTIMATED GFR 2019-03-04 09:35:00 Rojelio, Giovani Guerrero Me [facility]odist HC COMPLETE BLD COUNT 2019-03-04 09:30:00 Rojelio, Giovani craig Druze W/AUTO DIFF PROTHROMBIN TIME WITH INR 2019-03-04 09:30:00 Rojelio, Giovani Guerrero Druze PARTIAL THROMBOPLASTIN 2019-03-04 09:30:00 Rojelio, Giovani dias Druze TIME (PTT) TROPONIN 2019-03-04 09:30:00 Rojelio, Giovani Guerrero Me thodist B NATRIURETIC PEPTIDE 2019-03-04 09:30:00 Giovani Serrato ANTI XA, UNFRACTIONATED 2019-03-04 09:30:00 Giovani Serrato rowdy Druze HI CRITICAL CARE, E/M 2019-03-04 09:17:49 Giovani Serratoist 30-74 MINUTES ECG ED PRELIMINARY 2019-03-04 09:17:49 Giovani Serrato INTERPRETATION ECG 12-LEAD 2019-03-04 09:17:24 Giovani Serrato Il thodist Plan of Care Planned Activity Planned Date Details Comments Source Future Scheduled 2019-09-24 65+ PNEUMOCOCCAL Kelly Druze Test 00:00:00 VACCINE (1 of 1 - PPSV23) [code = 65+ PNEUMOCOCCAL VACCINE (1 of 1 - PPSV23)] Future Scheduled 2019-09-21 INFLUENZA VACCINE [place] Druze Test 00:00:00 [code = INFLUENZA VACCINE] Future Scheduled 2016-11-03 DIABETIC FOOT EXAM [place] Druze Test 00:00:00 [code = DIABETIC FOOT EXAM] Future Scheduled 2016-01-08 DIABETES: RETINAL EYE [place] Druze Test 00:00:00 EXAM [code = DIABETES: RETINAL EYE EXAM] Future Scheduled 2004 BREAST CANCER [facility] thodist Test 00:00:00 SCREENING [code = BREAST CANCER SCREENING] Future Scheduled 2004 [facility]COPY [facility]CRE[facility]ING [facility] Druze Test 00:00:00 [code = COLONOSCOPY SCREENING] Future Scheduled 2004 [facility]IN[facility] (#[facility] 00:00:00 [code = SHINGLES VACCINES (#1)] Future Scheduled 1975-09-24 Screening for [facility] thodist Test 00:00:00 malignant neoplasm of cervix (procedure) [code = 234378902] Encounters Start End Encounter Admission Attending Care Care Encounter Source Date/Time Date/Time Type Type Clinicians Facility Department ID 2020-01-22 2020-01-22 Outpatient [facility] [id number] Kelly 00:00:00 00:00:[address] 2019-12-25 2019-12-25 Outpatient [facility] [id number] Kelly 00:00:00 00:00:[address] 2019-12-25 2019-12-25 Outpatient CRAIG BARBOSA [facility] [id number] Kelly 00:00:00 00:00:[address] 2019-11-25 2019-11-25 Outpatient CRAIG BARBOSA [facility] [id number] Kelly 00:00:00 00:00:[address] 2019-11-20 2019-11-20 Outpatient CRAIG BARBOSA [facility] [id number] Kelly 00:00:00 00:00:[address] 2019-11-20 2019-11-20 Outpatient [facility] [id number] Kelly 00:00:00 00:00:[address] 2019-11-20 2019-11-20 Outpatient CRAIG BARBOSA [facility] [id number] Kelly 00:00:00 00:00:[address] 2019-11-20 2019-11-20 Outpatient WOJCIECHOWS [facility] [id number] Kelly 00:00:00 00:00:00 KI, 246 Method i SHANTA 2019-11-16 2019-11-16 Emergency [facility], [facility] [id number] 15:57:00 17:30:00 Cindy Alfred [id number] [place] [id number] [place] [id number] 2019-07-25 2019-07-26 Outpatient JOSY [facility] [id number] Kelly 00:00:00 00:00:00 BRUNO [address] 2019-03-04 2019-03-19 Inpatient DEIDRE [facility] [id number] Kelly 00:00:00 00:00:00 ROSA [address] 2018-11-23 2018-11-25 Outpatient DEIDRE [facility] [id number] Kelly 00:00:00 00:00:00 ROSA [address] 2018-11-18 2018-11-20 Inpatient DEIDRE [facility] [id number] Kelly 00:00:00 00:00:00 ROSA [address] Results Test Description Test Time Test Comments Results Result Comments Source POC glucose 2019-11-25 15:42:28 Test Item Value Reference Range Interpretation Comme nts POC glucose (test code = 37067-2) 106 mg/dL 65-99 H Pathology Laboratory Director Name: Terra Payne ID: [id number] Lab Interpretation (test code = Abnormal 23043-4) Guerrero MethodistPeripheral Ohsmk9410-38-89 12:13:48Shanta Sin MD 11/25/2019 12:18 PMPeripheral Block Date/Time: 11/25/2019 12:01 PMPerformed by: Shanta Sin MDAuthorized by: Shanta Sin MD Patient Location: Holding areaStart Time: 11/25/2019 11:41 AMEnd Time: 11/25/2019 12:04 PMStaff: Anesthesiologist: Shanta Sin MD Resident/MASKING MACHINE OPERATOR/AA: Sarah Soliz CRNA Performed by: Maxwell thesiologistPreprocedure: patient identified, IV checked, site and side [...] axilla.Medications AdministeredRopivacaine 0.5 % PF (mL), 15 mLHouston MethodistType and screen 2019-11-25 11:11:00 Test Item Value Reference Range Interpretation Comments ABO grouping (test code = 883-9) A Rh type (test code = 30654-2) POS Antibody screen (gel) (test code = NEG 890-4) Cesar MethodistComprehensive metabolic plhkk8406-60-23 10:29:12 Test Item Value Reference Range Interpretation Comments Sodium (test code = 2951-2) 138 135- 148 mEq/L Potassium (test code = 2823-3) 4.3 3.5- 5.0 mEq/L Chloride (test code = 2075-0) 103 98- 112 mEq/L CO2 (test code = 2027-9) 23 24- 31 mEq/L L Anion gap (test code = 96786-9) 12@ANIO 7- 15 mEq/L BUN (test code = 3094-0) 33 mg/dL 8-23 H Creatinine (test code = 2160-0) 3.10 mg/dL 0.5-0.9 H Glucose (test code = 2345-7) 170 mg/dL 65-99 H Calcium (test code = 44815-8) 9.5 mg/dL 8.8-10.2 Protein (test code = [...] 1974-03) Lab Interpretation (test code = Abnormal 28018-9) Cesar PandaistEstimated GBY6221-01-23 10:29:10 Test Item Value Reference Range Interpretation Comments Estimated GFR (test 15 mL/min/1.73 m2 A Miriam jimenez Units code = 5488) InterpretationG 1 >=90 Mallory l or highG2 60-89 Mildly decrease dG3a 45-59 Mil dly to moderately decr vcpizW6c 30-44 Moderately to s everely decreasedG4 15-29 Severe ly decreasedG5 <15 Kidney kelsey lureThe eGFR was calcul ated using the Chron ic Kidney Disease Epidemiology Collaboration ( CKD-EPI) equation. Interpretation is based on recommendati ons of the National [facility]-Kidn ey Disease Outcome s Quality Initiat ibis (NKF-KDOQI) pub lished in 2013. Lab Interpretation Abnormal (test code = 30703-5) Cesar HarrisPartial thromboplastin time, dupfefiqt1326-72-91 10:21:08 Test Item Value Reference Range Interpretation Comments PTT (test code = 34.4 23.0- 36.0 sec PTT thera peutic range for 3173-2) unfractionated heparin is61.0-112.0 se conds which corresponds to Anti-Xa0.3-0.7 U/ml. Cesar HarrisProthrombin time with YYQ6315-05-83 10:20:55 Test Item Value Reference Range Interpretation Comments Prothrombin time (test 13.9 11.5- 14.5 sec code = 5902-2) INR (test code = 1.1 [facility] 12616-9) Normalized Rati o (INR) is a therapeutic m onitoring tool for patien ts who are stable on oral anticoagulant t herapy. An INR of 2.0-3.0 is suggested for d eep vein thrombosis/pulm onary embolism. Cesar Hagen Pre/Post [id number] 00:50:23 Test Item Value Reference Range Interpretation Comments Ventricular rate (test 66 code = 253) Atrial rate (test code 66 = 255) HI interval (test code 142 = 266) QRSD interval (test 162 code = 260) QT interval (test code 510 = 264) QTC interval (test code 534 = 265) P axis 1 (test code = -16 267) QRS axis 1 (test code = 43 268) T wave axis (test code -67 = 270) EKG impression (test ^^^ Suspect code = 273) unspecified pacemaker vwathte-Aatlik-bvrjom ventricular-paced rhythm-Abnormal ECG-In automated comparison with ECG of 25-JUL-2019 10:32,-Vent. rate has increased BY 6 BPM- Guerrero MethodistCOVID-19 qualitative [id number] 03:57:13 Test Item Value Reference Range Interpretation Comments Interpretation (test Negative results do code = 6468360) not preclude 2019-nCoV infection and should not be used as the sole basis for treatment or other patient management decisions. Negative results must be combined with clinical observations, patient history, and epidemiological information. COVID-19 qualitative Not-Detected Not-Detected PCR result (test code = 75143-3) COVID-19 qualitative See link below for C ase Number: PCR (test code = PDF Lab Report [id number]) Kelly MethodistXR Chest 2 Bx0767-72-77 18:43:49Hm Interface, Radiology Results - 11/20/2019 6:46 [...] process. Remainder of the examination is un changed.[facility]-[id number] MethodistHemoglobin [id number] 18:21:48 Test Item Value Reference Range Interpretation Comments Hemoglobin A1C (test 6.9 % 4-5.6 H HbA1c c utoffs for code = 43461-9) diagnosing diabetes:4.0% - 5.6% = normal5.7% - 6.4% = increased risk for diabetes (prediabetes)9> =6.5% = tijmrcvj7Vjhd s for glycemic contro l (ADA 2016)< 7.0% Ta rget for non adults with miranda betes. More or less stringent targe ts may be appropriate for individual elliot ents. <7.5% Target for Children and adolescents wit h type 1 diabetes. Lab Interpretation (test Abnormal code = 67142-0) Kelly MethodistCBC with platelet and lmyonziwdbmr6304-65-64 18:11:11 Test Item Value Reference Range Interpretation Comments WBC (test code = 42111-3) 6.1 4.5- 11.0 k/uL RBC (test code = 02023-8) 3.15 m/uL 4.2-5.5 L HGB (test code = 718-7) 10.7 g/dL 12-16 L HCT (test code = 4544-3) 33.8 % 37-47 L MCV (test code = 787-2) 107.3 fL 82-100 H MCH (test code = 785-6) 34.0 pg 27-34 MCHC (test code = 786-4) 31.7 g/dL 31-37 RDW - SD (test code = 80870-2) 50.0 fL 37-55 MPV (test code = 72777-2) 10.8 fL 6.9-11 Platelet count (test code = 154 K/uL 150-400 89951-7) Nucleated RBC (test code = 38434-5) 0.00 /100 WBC Neutrophils (test code = 35087-9) 71.6 % 39-69 H Lymphocytes (test code = 76759-2) 17.0 % 25-45 L Monocytes (test code = 29155-4) 7.8 % 0-10 Eosinophils (test code = 02750-8) 3.0 % 0-5 Basophils (test code = 31418-9) 0.3 % 0-1 Immature granulocytes (test code = 0.3 % 0-1 33128-8) Lab Interpretation (test code = Abnormal 52716-9) Cesar MethodistHepatitis B surface ndmwpru2211-92-44 15:41:54 Test Item Value Reference Range Interpretation Comments Hepatitis B surface Ag (test Non-reactive Non-reactive code = 5195-3) Cesar MethodistECG 12 uiwn7108-20-54 13:16:05 Test Item Value Reference Range Interpretation Comments Ventricular rate (test 60 code = 253) Atrial rate (test code = 60 255) HI interval (test code = 176 266) QRSD [...] rhythm-Electronicall y Signed By Brandon Waller MD ([id number]) on 07/25/2019 1:16:03 PM Cesar HarrisXR Chest 1 Vw Glpziiet1913-85-21 11:49:59Hm Interface, Radiology Results Incoming - 07/25/2019 [...] The bones of the chest are unchanged. [facility]-[id number] Druze Electrophysiology ryfewjleb9055-74-79 09:52:56REASON FOR PROCEDURE: 1. Severe ischemic cardiomyopathy. 2. [place] [facility] [...] were advanced into the inferior vena cava. 7-Slovenian sheath was placed over one of the [...] 0-Ethibond suture x2 over the collar. A 6-Slovenian sheath was placed over the second J-wire and a pacing lead was advanced through the sheath and placed in the heart. The sheath was peeled away. A 9-Slovenian sheath was placed over the final J-wire [...] layers. Dermabond and a Dermanet dressing were applied.[facility]2020-06-04 07:16:39 Test Item Value Reference Range Interpretation Comments POC sodium (test code 139 mmol/L 135-148 = 2947-0) POC potassium (test 4.3 mmol/L 3.5-5 code = 6298-4) POC chloride (test 104 mmol/L 99-109 code = 2069-3) POC CO2 (test code = 24 mmol/L 24-31 02815-3) POC glucose (test code 104 mg/dL 65-99 H = 2339-0) POC BUN (test code = 50 mg/dL 8-24 H 6299-2) POC creatinine (test 3.9 mg/dl 0.5-0.9 H code = 15601-0) POC hematocrit (test 37 % 37-47 code = 4544-3) POC anion gap (test 17 mmol/L 8-20 Pathology Laboratory Director Name: Sheth code = 0157300) Manuel ce ID: [id number] Lab Interpretation Abnormal (test code = 23344-3) Guerrero MethodistHepatitis B surface Ab, wncepezfchsr1759-04-20 18:52:09 Test Item Value Reference Range Interpretation [...] ers refer to MMWR January 212012/Vol. 62(No. 10);- .Reference Interval: anti- HBs 9.99 IU/L or less .. ..... Yzinwopv38.00 I U/L or greater .... PositiveResults greater than 1,000.00 I U/L are reported as gre ater than 1,000.00 IU/L. This assay should not be u sed for blood donor scr eening, associated re-e ntry protocols, or f or screening Human Cell, Tis sues and Cellular and Ti ssue-Based Products (HCT/P ).Performed by BETHANY quezada,[address], [facility],[place] [address] rod .[employer] , Yao Swenson MD, Lab. Director Guerrero MethodistManual wxbmktpeudrh7493-12-66 12:22:21 Test Item Value Reference Range Interpretation Comments Manual differential (test code = PERFORMED 46433-2) Neutrophils (test code = 66.0 % 39-69 00821-6) Lymphocytes (test code = 22.0 % 25-45 L 79170-0) Monocytes (test code = 49512-8) 8.0 % 0-10 Eosinophils (test code = 4.0 % 0-5 30528-8) Basophils (test code = 15656-2) 0.0 % 0-1 Metamyelocytes (test code = 0 % 740-1) Promyelocytes (test code = 0 % 783-1) Platelet slide review (test code Dafne adequate = 25558-8) Anisocytosis (test code = 702-1) Moderate Lab Interpretation (test code = Abnormal 96999-9) Guerrero MethodistBasic metabolic kehhu7523-04-23 07:04:44 Test Item Value Reference Range Interpretation Comments Sodium (test code = 2951-2) 136 135- 148 mEq/L Potassium (test code = 2823-3) 4.5 3.5- 5.0 mEq/L Chloride (test code = 2075-0) 99 98- 112 mEq/L CO2 (test code = 8-9) 22 24- 31 mEq/L L Anion gap (test code = 50473-2) 15@ANIO 7- 15 mEq/L BUN (test code = 3094-0) 31 mg/dL 8-23 H Creatinine (test code = 2160-0) 2.14 mg/dL 0.5-0.9 H Glucose (test code = 2345-7) 164 mg/dL 65-99 H Calcium (test code = 82842-4) 8.3 mg/dL 8.8-10.2 L Lab Interpretation (test code = Abnormal 64641-2) Cesar MethodistHepatitis B core antibody gixxr7279-27-97 14:06:34 Test Item Value Reference Range Interpretation Comments Hepatitis B core total Ab (test Non-reactive Non-reactive code = 44764-5) Kelly MethodistHepatitis C pcqkeihw8322-83-71 14:06:34 Test Item Value Reference Range Interpretation Comments Hepatitis C Ab (test code = Non-reactive Non-reactive 55809-7) Kelly MethodistHepatitis B surface acbfholz0219-66-60 13:22:24 Test Item Value Reference Range Interpretation Comments Hepatitis B surface Ab (test Non-reactive Non-reactive code = 05864-8) Cesar HarrisIR Tunneled Dialysis Catheter Pkosjfehd8387-13-78 16:40:22Hm Interface, Radiology Results - 03/14/2019 4:43 PM CSTTunneled Dialysis Catheter PlacementPre-Procedure Diagnosis: Chronic kidney diseasePost-procedure Diagnosis:Chronic kidney diseaseOperator: Ramakrishna AraujoShredding Floor Equipment Operator: NoneAnesthesia/Sedation:Level of anesthesia: None (IV pain medication and lid ocaine)Medications used: Fentanyl only, 1% LidocaineRadiation exposure: 11 mGyEstimate blood loss: <5 mL Blood administered: NoneComplications: NoneImplants/Grafts: 14.5 Slovenian 19 cm cuffed tunneleddialysis catheterSpecimen: NoneProcedure:Informed consent [...] internal jugular vein dialysis catheter under moderate sedation.Cesar HarrisIonized isuxgyx0942-15-68 06:04:27 Test Item Value Reference Range Interpretation Comments pH (test code = 2753-2) 7.65 Ionized calcium (test code = 0.86 mmol/L 1.11-1.32 L ) Lab Interpretation (test code = Abnormal 56803-6) Cesar HarrisMagnesium vubwe1974-86-46 06:02:51 Test Item Value Reference Range Interpretation Comments Magnesium (test code = 33881-2) 2.1 mg/dL 1.6-2.4 Cesar HarrisPhosphorus jlidk7630-65-32 06:02:45 Test Item Value Reference Range Interpretation Comments Phosphorus (test code = 2777-1) 3.3 mg/dL 2.4-4.5 Guerrero MethodistActivated clotting iqiq3350-05-07 12:08:16 Test Item Value Reference Range Interpretation Comments Activated clotting 121 96- 152 sec Pathology Laboratory Director Name: Kati lr (test code = Sosa jamison ID: [id number]) [id number] [facility] nhmmbbze5646-06-36 02:07:28 Test Item Value Reference Range Interpretation Comments WBC (test code = 29010-9) 4.39 4.50- 11.00 k/uL L RBC (test code = 37148-4) 2.97 m/uL 4.2-5.5 L HGB (test code = 718-7) 9.1 g/dL 12-16 L HCT (test code = 4544-3) 29.2 % 37-47 L MCV (test code = 787-2) 98.3 fL 82-100 MCH (test code = 785-6) 30.6 pg 27-34 MCHC (test code = 786-4) 31.2 g/dL 31-37 RDW - SD (test code = 32395-1) 59.0 fL 37-55 H MPV (test code = 68323-9) 11.2 fL 8.8-13.2 Platelet count (test code = 141 150- 400 k/uL L 54393-0) Nucleated RBC (test code = 0.70 /100 WBC 82037-4) Lab Interpretation (test code = Abnormal 64513-3) Kelly MethodistArterial blood lxi5554-72-57 06:18:09 Test Item Value Reference Range Interpretation Comments pH, arterial (test code = 2744-1) 7.39 7.35-7.45 pCO2, arterial (test code = 40 35- 45 mmHg 2018-09) pO2, arterial (test code = 73 80- 90 mmHg L 2703-7) Bicarbonate, arterial (test code 23.7 mmol/L = 1960-4) Base excess, arterial (test code -1 -2 - 2 mEq-L = 1925-7) O2 saturation, arterial (test 95 % 95-100 code = 2708-6) Lab Interpretation (test code = Abnormal 36988-3) Kelly MethodistIonized calcium, ognfaivu9016-06-89 14:03:20 Test Item Value Reference Range Interpretation Comments Ionized calcium, arterial (test 1.11 mmol/L 1.11-1.32 code = 15449-1) Guerrero MethodistGlucose level, gnupelu1828-10-92 11:24:52 Test Item Value Reference Range Interpretation Comments Glucose, syringe (test code = 238 mg/dL 65-99 H 2345-7) Lab Interpretation (test code = Abnormal 39174-7) Guerrero MethodistHemoglobin, jxmqldr7042-85-63 11:24:52 Test Item Value Reference Range Interpretation Comments Hemoglobin, syringe (test code = 9.7 g/dL 12-16 L 718-7) Lab Interpretation (test code = Abnormal 98760-7) Guerrero MethodistLactic acid, hyaurlr5161-32-44 11:24:52 Test Item Value Reference Range Interpretation Comments Lactic acid, syringe (test code = 2.0 mmol/L 0.5-2.2 73222-7) Guerrero MethodistPotassium, owqepth4651-86-40 11:24:52 Test Item Value Reference Range Interpretation Comments Potassium, syringe (test code = 2007) 4.8 3.5- 5.0 mEq/L Guerrero MethodistSodium level, xiojxjx7568-86-60 11:24:52 Test Item Value Reference Range Interpretation Comments Sodium, syringe (test code = 2947-0) 135 135- 148 mEq/L Guerrero LkxdauzygUJZ4061-37-97 09:06:46Zohaib Lackey MD 03/11/2019 9:10 AMProcedure Performed: [...] none Anesthesia InformationPerformed PersonallyAnesthesiologist: Cj Shelton MD Kelly MethodistPrepare KQZ4615-51-38 09:06:00 Test Item Value Reference Range Interpretation Comments Product name (test code Red Blood Cells -1, = 25) Leukored Unit number (test code [id number] = [id number]) Product code (test code [id number] = 3092) Dispense status (test Transfused code = 24) Blood expiration date (test code = 302) Blood type code (test 6200 code = 308) Blood type (test code = A POSITIVE 1314) Compatibility (test Compatible code = 6400) Kelly MethodistWetmore awwi8362-13-92 09:05:48Zohaib Lackey MD 03/11/2019 9:06 AMCentral linePerformed by: Zohaib Lackey MDAuthorized by: Cj Shelton MD Patient Location: ORStaff: Anesthesiologist: Cj Shelton MD Resident/MASKING MACHINE OPERATOR/AA: Zohaib Lackey MD Performed by: Resident/MASKING MACHINE OPERATOR/AAPreprocedure:patient identified,IV checked, site and side verified, risks [...] tolerated the procedure well with no immediate complicationsKelly Druze Arterial gwqb4562-76-11 09:05:00Zohaib Lackey MD 03/11/2019 9:05 AMArterial linePerformed by: Zohaib Lackey MDAuthorized by: Cj Shelton MD Patient Location: ORStaff: Anesthesiologist: Cj Shelton MD Resident/MASKING MACHINE OPERATOR/AA: Zohaib Lackey MD Performed by: Resident/MASKING MACHINE OPERATOR/AAPre- procedure: patient identified, IV checked, site and [...] tolerated the procedure well with no immediate complicationsCesar PandaCwrecqntaIoawzw9087-03-17 09:04:16Zohaib Lackey MD 03/11/2019 9:04 AMAirwayPerformed by: [...] Attempts at Approach: 1[place] MethodistArterial blood gas, jxbsjpdva4805-90-63 08:37:11 Test Item Value Reference Range Interpretation Comments pH, arterial (test code = 2744-1) 7.44 7.35-7.45 pCO2, arterial (test code = 2019-) 32 35- 45 mmHg L pO2, arterial (test code = 2703-7) 250 80- 90 mmHg H Temperature, Celsius (test code = 37.0 Degrees C 8310-5) O2 saturation, arterial (test code = 100 % 95-100 2708-6) pH, arterial corrected (test code = 7.44 88359-9) pCO2, arterial corrected (test code 32 mmHg = 72264-5) pO2, arterial corrected (test code = 250 mmHg 92173-5) Base excess, arterial (test code = -2 -2 - 2 mEq-L 1925-7) Lab Interpretation (test code = Abnormal 40156-0) Cesar MethodistT4, abih4086-78-67 11:17:55 Test Item Value Reference Range Interpretation Comments T4, free (test code = 3024-7) 1.4 ng/dL 0.9-1.7 Cesar HarrisThyroid stimulating vubsdsn5097-98-28 11:17:55 Test Item Value Reference Range Interpretation Comments TSH (test code = 3016-3) 1.00 0.27- 4.20 uIU/mL Cesar HarrisLipid fwgof4537-51-97 11:13:37 Test Item Value Reference Interpretation Comments Range Cholesterol (test 178 mg/dL <200 code = 3-3) Triglycerides (test 172 mg/dL <150 H code = 2571-8) HDL cholesterol 42 mg/dL >40 (test code = 2084-9) LDL cholesterol 103 mg/dL <100 H Result obtai elizabeth by direct (test code = 2088-1) LDL yvonne surement Lipid panel SeeBelow Total Cholester ol (mg/dL) interpretation (test < 200 code = 50812-5) Desirable 200-239 Borderline -high >=240 Hi gh [...] mg/dL) Lab Interpretation Abnormal (test code = 51877-7) Cesar MethodistHepatic function kbwcb3441-01-39 11:13:35 Test Item Value Reference Range Interpretation Comments Albumin (test code = 2.7 g/dL 3.5-5 L 175-7) Total bilirubin (test 0.4 mg/dL 0-1.2 code = 1974-) Bilirubin direct (test <0.2 0-0.3 code = 1967-) Alkaline phosphatase 57 U/L 35-104 (test code = 6768-6) Protein (test code = 7.5 g/dL 6.3-8.3 [place] 9994.6-7.0 2885-2) g/dL1 tavq3760.4-7.6 g/dL7 months-8hnlx361 .1-7 .3 g/dL1-2 .6-7.5 g/dL>3 huqrx696.0-8.0 g/rK47-3823468. 3-8. 3 g/dL ALT (test code = 1742-6) 28 U/L 5-50 AST (test code = 1920-8) 89 U/L 10-35 H Lab Interpretation (test Abnormal code = 79246-0) [facility] lab aadaysgxx5683-00-30 12:57:11FIRST BEEHIVE KILN SUPERVISOR:None.PREOPERATIVE DIAGNOSES:1. Acute non-ST elevation myocardial infarction.2. Status [...] of stents from immediatelyafter the first septal radiology equipment servicer bridging the diagonal and approximately 2 cmdistally. [...] for single vessel coronary bypass to the LAD.Cesar Harris HEMODIALYSIS CATHETER [id number] 22:42:20Gail Evans MD 03/08/2019 10:44 PMHemodialysis catheter placementDate/Time: 03/08/2019 10:42 PMPerformed by: Gail Evans MDAuthorized by: Dayne Patterson MD Consent: Consent [...] tolerance of procedure: Tolerated well, no immediate complicationsCesar HarrisUrine [id number] 18:46:23 Test Item Value Reference Range Interpretation Comments Urine culture Mixed demetrice Specimen isolate (test 10-4 col/cc InformationSpe cimen code = 98285-5) Source: Urin eSpecimen Site: Clean cat [facility] DruzeGram [id number] 18:46:23Gram stain resultRare WBC'sRare Gram positive rods Comment: Specimen InformationSpecimen Source: UrineSpecimen Site: Clean catch [facility] natriuretic [id number] 12:13:01 Test Item Value Reference Range Interpretation Comments BNP (test code = 29047-4) 961 pg/mL 0-100 H Lab Interpretation (test code = Abnormal 86402-6) Kelly Pratimamear [id number] 10:46:12 Test Item Value Reference Range Interpretation Comments Platelet slide review (test code = Decreased A 08290-6) Anisocytosis (test code = 702-1) Moderate Ovalocytes (test code = 774-0) Moderate Lab Interpretation (test code = Abnormal 11725-5) Kelly DruzeUs carotid [id number] 08:08:00Interface, Radiology Results In - 03/07/2019 8:08 AM [facility] Vascular Ultrasound Laboratory Carotid Artery Duplex [id number] [place] [address] For quality control checker purposes, the categorization of the degree of the stenosis of this exam is based on criteria described in the IAC carotid stenosis grading white paper( www.intersocietal.org/Vascular) and Sruthi Sauceda., [place] CRodgerB., et al. Carotid artery stenosis: adams-scale and Doppler US diagnosis--Society of Radiologists in Ultrasound Consensus Conference. Radiology. 2003 Dec; 229(2):340-6. Pat.Name: JULEE KENNEY Pat.ID: [id number] St.Date: 03/06/2019 Refer.MD: SANJAY KEBEDE MD Exam Time: 3:12:00 PM Study Type:Carotid Height: 65in Weight: 183lb BSA: 1.91 m2 Age: 8 1955,63Y Sex: FEMALE BP: 122/57 Sonogrphr: Ana Feliz RDCS, RVTPat. Stat.:Inpatient Room: [facility]2034 A Tape Vol: ED, [facility] - 4: [id number] Echo Event ID:[id number] Order ID: [id number] Reason for Study:Carotid disease Procedures: Colorflow, Grayscale/2D, [...] 1.19 Signed 03/07/2019 08:08 Se Hurley MD, [facility] MethodistVenous blood [id number] 05:47:13 Test Item Value Reference Range Interpretation [...] (test code = 20.2 mmol/L 21-28 L 83724-0) Lab Interpretation (test code = Abnormal 30660-7) Kelly MethodistUrinalysis screen and microscopy, with reflex to culture 2019-03-07 02:06:45 Test Item Value Reference Range Interpretation Comments Specimen site (test code = Catheterized 2038054) Color, UA (test code = 5778-6) Yellow Appearance, UA (test code = Cloudy 5767-9) Specific gravity, UA (test code 1.014 1.001-1.035 = 5811-5) pH, UA (test code = 5803-2) 5.0 5.0-8.5 Protein, UA (test code = 2+ Negative A 13354-4) Glucose, UA (test code = 3+ Negative A 87063-7) Ketones, UA (test code = 2514-8) Negative Negative Bilirubin, UA (test code = Negative Negative 5770-3) Blood, UA (test code = 5794-3) Negative Negative Nitrite, UA (test code = 5802-4) Negative Negative Urobilinogen, UA (test code = <2.0 <2.0 43239-4) Leukocyte esterase, UA (test Small Negative A code = 5799-2) Epithelial cells, UA (test code 2 /HPF = 5787-7) WBC, UA (test code = 5821-4) 8 0- 4 /HPF H RBC, UA (test code = 43062-0) 1 0- 5 /HPF Bacteria, UA (test code = Few None seen 86311-9) Yeast, UA (test code = 96028-0) None seen Yeast with pseudohyphae, UA None seen (test code = 96876-2) Amorphous crystals (test code = Few 04715-2) Lab Interpretation (test code = Abnormal 29107-2) Kelly MethodistEchocardiogram complete w contrast and 3D if [id number] 16:37:00Interface, Radiology Results In 03/06/2019 4:37 PM FINANCIAL MANAGER Echocardiography Report [id number] [address] Pat.Name: JULEE KENNEY.ID: [id number].Date: 03/06/2019 Refer.MD: SANJAY KEBEDE MD Exam Time: 2:29:00 PM Study Type:Routine Echo Height: 65in Weight: 183lb BSA: 1.91 m2 Age: 8 1955,63Y Sex: FEMALE BP: 138/64 HR: 66 bpm Sonogrphr: Anu, RDCS, RVTPat. Stat.:Inpatient Room: [address] Study Status:Final Echo Event ID:[id number] Order ID: [id number] Reason for Study:Arrhythmias - Sustained or nonsustained atrialfibrillation, SVT, or VT; Assess LV function prior to anticipated ACBHistory / Clinical:Diabetes, Hypertension, [place], Rheumatoid ArthritisProcedures: 2D Echo, Colorflow Doppler, Intravenous [...] estimate PA systolic pressure. MEASUREMENTS: 2DParasternal [place] Ao An 1.9 cm LVPWd 1 cm [...] cm SV 72 ml Signed 03/06/2019 04:37 My BeckettistSodium level, urine, [id number] 12:51:14 Test Item Value Reference Range Interpretation Comments Sodium, urine, random (test code = 32 mEq/L 30219-8) Guerrero MethodistCreatinine level, urine, [id number] 12:50:27 Test Item Value Reference Range Interpretation Comments Creatinine, urine, random (test 130 mg/dL code = 66607-7) Gu[place]ro MethodistAnti Xa, [id number] 03:09:11 Test Item Value Reference Range Interpretation Comments Anti Xa, unfractionated 0.25 U/mL 0.3-0.7 L Ther apeutic Range: (test code = 3274-8) 0.30 - 0.70 U/mL Lab Interpretation (test Abnormal code = 52169-5) Cesar Se[id number] 01:13:19 Test Item Value Reference Range Interpretation Comments Troponin (test code = 1.157 ng/mL 0-0.04 H In pat ients 83108-9) suspected of alejandra ving a myocardial infarction, [...] L Lab Interpretation Abnormal (test code = 26864-6) [facility] ED Preliminary Interpretation - Not an [id number] 09:17:49 Test Item Value Reference Range Interpretation Comments ALHAJI (test code = ALHAJI) Giovani Serrato MD 03/04/2019 3:51 [facility] Preliminary Interpretation - Not an OrderPerformed by: Giovani Serrato, MDAuthorized by: Giovani Serrato MD ECG reviewed by ED Physician in the absence of a environmental compliance specialist: yes Interpretation: Interpretation: abnormal Rate: ECG rate: 77 ECG rate assessment: normal Rhythm: Rhythm: sinus rhythm QRS: QRS axis: Normal QRS intervals: NormalConduction: Conduction: abnormal Abnormal conduction: complete RBBB ST segments: ST segments: NormalT waves: T waves: inverted Inverted: AVL and V1 Lab Interpretation Abnormal (test code = 48340-0) Gu[place]2020-01-13 09:17:49Giovani Serrato MD 03/04/2019 3:51 PMCritical CarePerformed [...]
[2020-01-27] MEDS ORDERED: HYDROCODONE/CHLORPHEN 5 ML/OSYR ONE (15:05)
--- NOTE | 2020-01-27 15:48 | RAD REPORT ---
EXAM DESCRIPTION: RAD - Ribs Left - 01/27/2020 2:39 pm CLINICAL HISTORY: Rib pain FINDINGS: Multiple old rib fractures An acute rib fracture is not seen
--- NOTE | 2020-01-27 15:49 | RAD REPORT ---
EXAM DESCRIPTION: Michelle Single View01/27/2020 2:38 pm CLINICAL HISTORY: Cough COMPARISON: 2014 FINDINGS: Mild to moderate bilateral interstitial lung opacities The heart is mildly to moderately enlarged Pacemaker leads in place. Central venous catheter noted IMPRESSION: Mild to moderate bilateral interstitial lung opacities probably a combination of mild i nterstitial pulmonary edema superimposed over chronic changes
--- NOTE | 2020-01-27 16:20 | ER ---
Nurse's Notes [facility] Name: Viri Jefferson Age: 64 yrs Sex: Female : 1955 Arrival Date: 01/27/2020 Time: 12:58 Bed 6 Private MD: Diagnosis: Chest pain, unspecified;Strain of muscle and tendon of thorax Presentation: 01/26 13:02 Chief complaint: EMS states: COUGH x3 DAYS, SPONTANEOUS LEFT FLANK PAIN. Coronavirus bp screen: At this time, the client does not indicate any symptoms associated with coronavirus-19. Ebola Screen: No symptoms or risks identified at this time. Initial Sepsis Screen: Does the patient meet any 2 criteria? No. Patient's initial sepsis screen is negative. Does the patient have a suspected source of infection? No. Patient's initial sepsis screen is negative. Risk Assessment: Do you want to hurt yourself or someone else? Patient reports no desire to harm self or others. Onset of symptoms was January 27, 2020 at 12:00. 13:02 Method Of Arrival: EMS: [facility] bp 13:02 Acuity: RUSS 3 bp Triage Assessment: 13:05 General: Appears distressed, uncomfortable, obese, Behavior is cooperative, appropriate bp for age, anxious. Pain: Complains of pain in left lateral anterior chest and left lateral posterior chest. EENT: No deficits noted. Neuro: No deficits noted. Cardiovascular: No deficits noted. Respiratory: No deficits noted. GI: No signs and/or symptoms were reported involving the gastrointestinal system. : No signs and/or symptoms were reported regarding the genitourinary system. Derm: No deficits noted. Musculoskeletal: No deficits noted. Historical: - Allergies: 13:09 Demerol; bp 13:09 Morphine; bp 13:09 PENICILLINS; bp - Home Meds: 13:09 aspirin 81 mg Oral chew 1 tab once daily [Active]; atorvastatin 40 mg oral tab 1 tab bp once daily [Active]; Vitamin D Oral 1,000 unit daily [Active]; Plavix 75 mg Oral tab 1 tab once daily [Active]; Insulin Glargine 100 UNITS/ML Sub-Q 24 unit daily [Active]; linagliptin oral 5 MG oral 1 tab once daily [Active]; metoprolol tartrate 12.5 MG Oral tab 1 tab 2 times per day [Active]; 13:11 Apresoline 25 MG TAB Oral 25 mg twice a day [Active]; lorazepam 0.5 mg Oral tab 1 tab bp every 6 hours [Active]; memantine 10 mg oral tab 1 tab 2 times per day [Active]; paroxetine HCl 40 mg oral tab 1 tab once daily [Active]; tramadol 50 mg Oral tab 1 tab every 6 hours [Active]; Xeljanz 5 mg oral tab 1 tab daily [Active]; - PMHx: 13:09 Diabetes - NIDDM; Dialysis; lyme disease; Hypertension; bp - Immunization history:: Adult Immunizations up to date. - Social history:: Smoking status: Patient denies any tobacco usage or history of. - Family history:: not pertinent. - Hospitalizations: : No recent hospitalization is reported. Screenin:33 Abuse screen: Denies threats or abuse. Denies injuries from another. Nutritional bp screening: No deficits noted. Tuberculosis screening: No symptoms or risk factors identified. Fall Risk None identified. Assessment: 13:05 General: SEE TRIAGE NOTE. bp 14:00 Reassessment: Patient appears in no apparent distress at this time. No changes from bp previously documented assessment. Patient is alert, oriented x 3, equal unlabored respirations, skin warm/dry/pink. XRAY PENDING. 15:00 Reassessment: Patient appears in no apparent distress at this time. No changes from bp previously documented assessment. Patient is alert, oriented x 3, equal unlabored respirations, skin warm/dry/pink. PT RETURNED FROM XRAY. 16:07 Reassessment: No changes from previously documented assessment. Patient and/or family bp updated on plan of care and expected duration. Pain level reassessed. Patient is alert, oriented x 3, equal unlabored respirations, skin warm/dry/pink. RAD RESULTED. NO ACUTE CHANGES, PER RADIOLOGY. MD AT B/S. 16:44 Reassessment: PT TBDC, TRANSPORT PENDING. bp 17:07 Reassessment: PT D/C VIA W/C WITH FAMILY. bp Vital Signs: 13:02 BP 165 / 62; Pulse 90; Resp 19; Temp 97.9; Pulse Ox 93% on R/A; bp 14:00 BP 143 / 91; Pulse 85; Resp 16; Pulse Ox 94% ; bp 15:06 BP 151 / 61; Pulse 90; Resp 17; Pulse Ox 98% ; jl7 16:07 BP 146 / 65; Pulse 89; Resp 16; Pulse Ox 96% ; bp ED Course: 12:58 Patient arrived in ED. jl7 12:59 Randal Molina, RN is Primary Nurse. bp 12:59 Nick Arreguin MD is Attending Physician. rn 13:04 Triage completed. bp 15:33 Patient has correct armband on for positive identification. Bed in low position. Call bp light in reach. Side rails up X2. 17:07 No provider procedures requiring assistance completed. Patient did not have IV access bp during this emergency room visit. Administered Medications: 14:56 Drug: Tussionex Pennkinetic ER 5 ml Route: PO; jl7 16:43 Follow up: Response: No adverse reaction bp 16:30 Drug: Revere 10 mg-325 mg 1 tabs Route: PO; bp 16:43 Follow up: Response: Medication administered at discharge. bp Outcome: 16:20 Discharge ordered by MD. rn 17:07 Discharged to home via wheelchair, with family. bp 17:07 Condition: stable 17:07 Discharge instructions given to patient, family, Instructed on discharge instructions, follow up and referral plans. medication usage, Demonstrated understanding of instructions, follow-up care, medications, Prescriptions given X 3. 17:08 Patient left the ED. bp Signatures: Nick Arreguin MD MD rn Leal, Jahala, RN RN jl7 Randal Molina, RN RN bp
--- NOTE | 2020-01-27 16:20 | EDPHYS ---
Physician Documentation [facility] Name: Viri Jefferson Age: 64 yrs Sex: Female : 1955 Arrival Date: 01/27/2020 Time: 12:58 Bed 6 Private MD: ED Physician Nick Arreguin HPI: 01/26 13:42 This 64 yrs old Female presents to ER via EMS with complaints of left rib rn pain. 13:42 The patient or guardian reports chest pain that is located primarily in the left rn lateral posterior chest and left lateral anterior chest. Onset: just prior to arrival. The pain does not radiate. Associated signs and symptoms: Pertinent positives: cough, Pertinent negatives: palpitations, shortness of breath. The chest pain is described as sharp, stabbing. Duration: The patient or guardian reports a single episode. Modifying factors: The symptoms are alleviated by nothing. the symptoms are aggravated by cough, deep breath. Severity of pain: At its worst the pain was moderate in the emergency department the pain is unchanged. The patient has not experienced similar symptoms in the past. 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 No fever. No hemoptysis. Hurts to take deep breath and touch left ribs. . Historical: - Allergies: 13:09 Demerol; bp 13:09 Morphine; bp 13:09 PENICILLINS; bp - Home Meds: 13:09 aspirin 81 mg Oral chew 1 tab once daily [Active]; atorvastatin 40 mg oral tab 1 tab bp once daily [Active]; Vitamin D Oral 1,000 unit daily [Active]; Plavix 75 mg Oral tab 1 tab once daily [Active]; Insulin Glargine 100 UNITS/ML Sub-Q 24 unit daily [Active]; linagliptin oral 5 MG oral 1 tab once daily [Active]; metoprolol tartrate 12.5 MG Oral tab 1 tab 2 times per day [Active]; 13:11 Apresoline 25 MG TAB Oral 25 mg twice a day [Active]; lorazepam 0.5 mg Oral tab 1 tab bp every 6 hours [Active]; memantine 10 mg oral tab 1 tab 2 times per day [Active]; paroxetine HCl 40 mg oral tab 1 tab once daily [Active]; tramadol 50 mg Oral tab 1 tab every 6 hours [Active]; Xeljanz 5 mg oral tab 1 tab daily [Active]; - PMHx: 13:09 Diabetes - NIDDM; Dialysis; lyme disease; Hypertension; bp - Immunization history:: Adult Immunizations up to date. - Social history:: Smoking status: Patient denies any tobacco usage or history of. - Family history:: not pertinent. - Hospitalizations: : No recent hospitalization is reported. ROS: 13:42 Constitutional: Negative for fever, chills, and weight loss, Eyes: Negative for injury, rn pain, redness, and discharge, Neck: Negative for injury, pain, and swelling, Cardiovascular: + chest pain Respiratory: Negative for shortness of breath, wheezing Abdomen/GI: Negative for abdominal pain, nausea, vomiting, diarrhea, and constipation, Back: Negative for injury and pain, MS/Extremity: Negative for injury and deformity, Skin: Negative for injury, rash, and discoloration, Neuro: Negative for headache, weakness, numbness, tingling, and seizure. Exam: 13:42 Constitutional: No acute distress Head/Face: Normocephalic, atraumatic. ENT: No rn stridor Chest/axilla: + tenderness left lateral chest wall, without crepitus or evidence of trauma. Cardiovascular: Regular rate and rhythm. No pulse deficits. Respiratory: No increased work of breathing, no retractions or nasal flaring. Abdomen/GI: Soft, non-tender Skin: Warm, dry MS/ Extremity: Pulses equal, no cyanosis. Neuro: Awake and alert, GCS 15, oriented to person, place, time, and situation. Vital Signs: 13:02 BP 165 / 62; Pulse 90; Resp 19; Temp 97.9; Pulse Ox 93% on R/A; bp 14:00 BP 143 / 91; Pulse 85; Resp 16; Pulse Ox 94% ; bp 15:06 BP 151 / 61; Pulse 90; Resp 17; Pulse Ox 98% ; jl7 16:07 BP 146 / 65; Pulse 89; Resp 16; Pulse Ox 96% ; bp MDM: 12:59 Patient medically screened. rn 16:10 Differential diagnosis: pleurisy, pneumothorax, rib fracture, chest strain. Data rn reviewed: vital signs, nurses notes, radiologic studies, plain films, and as a result, I will discharge patient. Counseling: I had a detailed discussion with the patient and/or guardian regarding: the historical points, exam findings, and any diagnostic results supporting the discharge/admit diagnosis, radiology results, the need for outpatient follow up, to return to the emergency department if symptoms worsen or persist or if there are any questions or concerns that arise at home. 01/26 13:01 Order name: XRAY Chest (1 view) rn 01/26 13:01 Order name: Ribs Left XRAY rn 01/26 15:53 Order name: RAD EDMS 01/26 15:53 Order name: RAD EDMS 01/26 13:01 Order name: IV Start; Complete Time: 16:28 rn Administered Medications: 14:56 Drug: Tussionex Pennkinetic ER 5 ml Route: PO; jl7 16:43 Follow up: Response: No adverse reaction bp 16:30 Drug: Tonica 10 mg-325 mg 1 tabs Route: PO; bp 16:43 Follow up: Response: Medication administered at discharge. bp Disposition: 01/27/20 16:20 Discharged to Home. Impression: Chest pain, unspecified, Strain of muscle and tendon of thorax. - Condition is Stable. - Discharge Instructions: Nonspecific Chest Pain, Chest Wall Pain. - Prescriptions for Tylenol- Codeine #3 300-30 mg Oral Tablet - take 1 tablet by ORAL route every 6 hours As needed; 15 tablet. Zithromax Z- Bradley 250 mg Oral Tablet - take 1 tablet by ORAL route as directed for 5 days Day 1 - take two (2) tablets one time. Day 2, 3, 4 , 5 take one (1) tablet once daily.; 6 tablet. Guaifenesin AC 10- 100 mg/5 mL Oral Liquid - take 10 milliliter by ORAL route every 4 hours As needed; 240 milliliter. - Medication Reconciliation Form, Thank You Letter, Antibiotic Education, Prescription Opioid Use form. - Follow up: Private Physician; When: As needed; Reason: Recheck today's complaints, Re-evaluation by your physician. - Problem is new. - Symptoms have improved. Signatures: Dispatcher [employer] MS Nick Arreguin MD MD rn Leal, Jahala, RN RN jl7 Randal Molina RN RN bp Corrections: (The following items were deleted from the chart) 17:08 16:20 01/27/2020 16:20 Discharged to Home. Impression: Chest pain, unspecified; Strain bp of muscle and tendon of thorax. Condition is Stable. Forms are Medication Reconciliation Form, Thank You Letter, Antibiotic Education, Prescription Opioid Use. Follow up: Private Physician; When: As needed; Reason: Recheck today's complaints, Re-evaluation by your physician. Problem is new. Symptoms have improved. rn
[2020-01-27] MEDS ORDERED: HYDROCODONE/APAP 10/325 TAB ONE (16:53)
[2020-01-30 21:36] VITALS: TEMP 97.9
[2020-01-30 21:41] VITALS: BP 146/65; O2SAT 96
== END 2020-01-27 17:08 | disposition home or self-care (01) ==
LOC: ER 12:57
DX: S29.019A Strain of muscle and tendon of unspecified wall of thorax, initial encounter (principal); R05 Cough; I10 Essential (primary) hypertension; E11.9 Type 2 diabetes mellitus without complications; Z79.4 Long term (current) use of insulin; Z99.2 Dependence on renal dialysis; Z79.01 Long term (current) use of anticoagulants; Z79.82 Long term (current) use of aspirin; Z88.0 Allergy status to penicillin; Z88.5 Allergy status to narcotic agent
CPT/HCPCS: 71045; 99283